=== PATIENT | male | born 1960 | race African-American/Black ===

== ENCOUNTER 2016-06-29 11:56 | Inpatient (IN) | payer OTHER ==
--- NOTE | 2016-06-29 12:25 | PDOC ---
History of Present Illness - General History Source: Patient Exam Limitations: No Limitations - History of Present Illness Initial Comments: 06/29/16 13:26 The patient is a 56 year old male, with significant past medical history HTN, asthma, diabetes, renal disease, kidney stones, aortic aneurism, who presents today via ambulance complaining of chest pain and SOB. The patient was sitting on the couch at the onset of the chest pain, which was accompanied by SOB. The patients family member found the patient kneeled down having difficulty breathing and called an ambulance. He describes the pain as 7 or 8/10 in severity and nonradiating. Denies fever, chills, nausea, vomiting. Allergies: adhesive tape PCP- Dr. Guillen Psychologist Engineering: Dr. Rooney <Marianna Cook - Last Filed: 06/29/16 15:49> - General History Source: Patient Exam Limitations: No Limitations <Devora Parham - Last Filed: 06/30/16 11:53> - General Chief Complaint: Blood Pressure Problem Stated Complaint: CHEST PAIN, SOB,HTN Time Seen by Provider: 06/29/16 12:22 Past History <Marianna Cook - Last Filed: 06/29/16 15:49> - Past Medical History Anemia: No Asthma: No Cancer: No Cardiac Disorders: Yes (CHEST PAIN ANGIOGRAM NEGATIVE) CVA: No COPD: No CHF: No Dementia: No Diabetes: No GI Disorders: No Disorders: Yes (BPH) HTN: Yes Hypercholesterolemia: No Kidney Stones: Yes Liver Disease: No Seizures: No Thyroid Disease: No - Surgical History Abdominal Surgery: No Appendectomy: No Cardiac Surgery: No Cholecystectomy: No GI Surgery: (KIDNEY SX) Lung Surgery: No Neurologic Surgery: No Orthopedic Surgery: No - Psycho/Social/Smoking Cessation Hx Suicidal Ideation: No Smoking Status: Yes Smoking History: Current every day smoker Number of Cigarettes Smoked Daily: 5 Information on smoking cessation initiated: Yes 'Breaking Loose' booklet given: 06/29/16 Hx Alcohol Use: No Drug/Substance Use Hx: No Substance Use Type: None Hx Substance Use Treatment: No <Devora Parham - Last Filed: 06/30/16 11:53> - Past Medical History Allergies/Adverse Reactions: Allergies Allergy/AdvReac Type Severity Reaction Status Date / Time adhesive tape Allergy Verified 06/29/16 12:12 Home Medications: Ambulatory Orders Hydrochlorothiazide [Hctz] 25 mg PO DAILY 11/09/11 Lisinopril [Zestril] 40 mg PO DAILY 11/09/11 Tamsulosin HCl 0.4 mg PO DAILY 11/09/11 Duloxetine HCl [Cymbalta -] 60 mg PO DAILY 06/29/16 Furosemide 20 mg PO DAILY 06/29/16 Labetalol HCl 100 mg PO TID 06/29/16 Nifedipine ER [Procardia Xl -] 90 mg PO DAILY 06/29/16 Zolpidem Tartrate [Ambien] 10 mg PO HS 06/29/16 Review of Systems - Review of Systems Able to Perform ROS?: Yes Comments:: 06/29/16 13:26 GENERAL/CONSTITUTIONAL: No: fever, chills, weakness, loss of appetite. HEAD, EYES, EARS, NOSE AND THROAT: No: change in vision, ear pain, discharge, sore throat, throat swelling. CARDIOVASCULAR: Yes: chest pain No: lightheadedness, palpitations, syncope RESPIRATORY: Yes: shortness of breath. No: wheezing, hemoptysis, stridor. GASTROINTESTINAL: No: nausea, vomiting, abdominal cramping, diarrhea, rectal bleeding, constipation. GENITOURINARY: No: dysuria, hematuria, frequency, urgency, flank pain. MUSCULOSKELETAL: No: back pain, neck pain, joint pain, muscle swelling or pain SKIN: No: lesions, pallor, rash or easy bruising. NEUROLOGIC: No: headache, vertigo, paresthesias, weakness ENDOCRINE: No: unexplained weight gain or loss HEMATOLOGIC/LYMPHATIC: No: anemia, easy bleeding, swelling nodes <Marianna Cook - Last Filed: 06/29/16 15:49> *Physical Exam - Vital Signs Last Vital Signs Temp Pulse Resp BP Pulse Ox 97.3 F L 60 18 164/127 100 06/29/16 12:10 06/29/16 12:52 06/29/16 12:52 06/29/16 12:52 06/29/16 12:52 - Physical Exam Comments: 06/29/16 13:27 GENERAL: The patient is in no acute distress. HEAD: Normal with no signs of trauma. EYES: PERRLA, EOMI, sclera anicteric, conjunctiva clear. ENT: Ears normal, nares patent, oropharynx clear without exudates. Moist mucous membranes. NECK: Normal range of motion, supple without lymphadenopathy, JVD, or masses. LUNGS: Dyspneic. Bipap in place. HEART:Regular rate and rhythm, normal S1 and S2 without murmur, rub or gallop. ABDOMEN: Soft, nontender, normoactive bowel sounds. No guarding, no rebound. EXTREMITIES: Normal range of motion, no edema. No clubbing or cyanosis. No erythema, or tenderness. NEUROLOGICAL: Cranial nerves II through XII grossly intact. Normal speech. No focal neurological deficits. MUSCULOSKELETAL: Back nontender to palpation, no CVA tenderness SKIN: Warm, Dry, normal turgor, no rashes or lesions noted. <Marianna Cook - Last Filed: 06/29/16 15:49> - Vital Signs Last Vital Signs Temp Pulse Resp BP Pulse Ox 97.3 F L 82 20 165/122 98 06/29/16 12:10 06/29/16 12:10 06/29/16 12:10 06/29/16 12:10 06/29/16 12:21 <Devora Parham - Last Filed: 06/30/16 11:53> Heart Score/ECG Review - History History: Moderately suspicious - Electrocardiogram EKG: Non specific repolarization disturbance - Age Age: 45-65 - Risk Factors Risk Factors Heart Score: Yes Hx Hypertension, Yes Hx Diabetes Based on the list above the patient has:: 1-2 risk factors - Troponin Troponin: >/=3x normal limit - Score Heart Score - Total: 6 <Devora Parham - Last Filed: 06/30/16 11:53> ED Treatment Course - LABORATORY CBC & Chemistry Diagram: 06/29/16 12:53 06/29/16 12:53 - ADDITIONAL ORDERS Additional order review: Laboratory Results 06/29/16 12:53 Sodium 140 Potassium 3.9 Chloride 107 Carbon Dioxide 25 Anion Gap 8 BUN 16 Creatinine 1.3 Creat Clearance w eGFR 56.90 Random Glucose 97 Calcium 8.1 L Total Bilirubin 0.4 AST 32 D ALT 28 D Alkaline Phosphatase 83 D Creatine Kinase 149 Troponin I 0.29 H D Total Protein 6.6 Albumin 3.3 L - RADIOLOGY Radiograph Interpretation: 06/29/16 13:57 EXAM#: TYPE/EXAM: RESULT: [id number] RAD/CHEST X-RAY PORTABLE* Chest pain and shortness of breath. Chest semierect portable x-ray. Comparison study April 02, 2016. The costophrenic angles not included on the x-ray. Cardiomegaly. Uncoiled thoracic aorta. Accentuated bronchovascular markings noted in bilateral lower lung zones with right-sided Soren B lines. Clinically correlate for early CHF. No lobar consolidations are seen. No evidence of pneumothorax. Intact visualized osseous structures. Impression. Cardiomegaly. Accentuated bronchovascular markings noted in bilateral lower lung zones with right-sided Soren B lines. Clinically correlate for early CHF. Reported By: Zane Aguilera MD 06/29/16 1302 EXAM#: TYPE/EXAM: RESULT: CT/ABDOMEN CTA W/WO CONTRAST CT/CHEST CTA CTA chest with CTA abdomen Comparison studies: April 02, 2016 and May 28, 2014 CLINICAL HISTORY: Chest pain and abdominal pain-evaluation for aortic dissection 3 mm thin axial sections completed with coronal and sagittal reformations after bolus injection 99 cc Visipaque with a power injector. 3-D postprocessing of the reformatted data was completed and reviewed at the computer work station. Trachea midline with no endobronchial lesion or lobar atelectasis. Small nonloculated bibasilar pleural effusions with no signs of consolidation or pneumonia in the lungs No pneumothorax or pneumomediastinum identified Symmetric normal thyroid lobes with no bulky axillary adenopathy. Mediastinal adenopathy is identified with no thrombus in the cardiac chambers and no evidence of thoracic aortic aneurysm or thoracic aortic dissection with no pericardial effusion identified No evidence of abdominal aortic aneurysm or abdominal aortic dissection No evidence of active contrast extravasation in the abdomen or thorax identified Calcified stones imaged in the region of the left kidney with evidence of prior inflammation and scarring in the left kidney. There is a 2 cm cyst suspected without enhancement and Hounsfield density for in the interpolar region of the left kidney No suspicious lung nodules, mass or cavity with moderate emphysematous changes seen. No large bullae identified No evidence of carotid dissection. Normal visualization of the renal arteries. No PA evidence of saddle embolus in the main pulmonary arteries with no evidence of filling defects in the segmental and subsegmental branches of the pulmonary artery. Pretracheal adenopathy demonstrated measuring 2.0 x 2.0 cm with central low density observed. Left hilar adenopathy identified measuring 2.9 x 2.4 cm. Right hilar adenopathy measuring 2.4 x 2.1 cm and 1.2 x 2.1 cm. Fluid in the bowel is identified with no evidence of bowel obstruction, mild ileus may be present No definite adrenal nodules. No enhancing lesions seen in the liver, spleen or pancreas with normal visualization of the stomach No compression fracture or rib fracture with no bone destruction identified IMPRESSION: CTA chest and abdomen completed with no evidence of thoracic or abdominal aortic aneurysm or thoracic/abdominal aortic dissection. Mediastinal and hilar adenopathy noted incidentally with no evidence of lung mass or pneumonia with small bibasilar pleural effusions. Reported By: Daniel Delcid MD 06/29/16 1509 - Medications Given in the ED: ED Medications Discontinued Medications Generic Name Dose Route Start Last Admin Trade Name Freq PRN Reason Stop Dose Admin Labetalol HCl 10 mg 06/29/16 13:21 06/29/16 13:25 Normodyne Injection - IVPUSH 06/29/16 13:22 10 mg ONCE ONE Administration <Marianna Cook - Last Filed: 06/29/16 15:49> - LABORATORY CBC & Chemistry Diagram: 06/30/16 05:15 06/30/16 05:15 - RADIOLOGY Radiology Studies Ordered: Category Date Time Status ABDOMEN CTA W/WO CONTRAST [CT] Stat CT Scan 06/29/16 12:22 Ordered CHEST CTA [CT] Stat CT Scan 06/29/16 12:22 Ordered CHEST X-RAY PORTABLE* [RAD] Stat Radiology 06/29/16 12:22 Ordered <Devora Parham - Last Filed: 06/30/16 11:53> Medical Decision Making - Critical Care Time Total Critical Care Time (minutes): 60 Critical Care Statement: The care of this patient involved high complexity decision making to prevent further life threatening deterioration of the patient 's condition and/or to evalute & treat vital organ system(s) failure or risk of failure. - Medical Decision Making 06/29/16 12:25 A portion of this note was documented by scribe services under my direction. I have reviewed the details of the note, within reason, and agree with the documentation with the following case summary and management plan written by me. Nursing documentation reviewed and incorporated into medical decision making 06/29/16 13:14 This is a 56 yo M with a history of HTN, known ascending aortic aneurysm Presenting to the ER via EMS s/p episode of chest pain and shortness of breath Pt states, he was in his usual states of health until just prior to arrival when he noted a 7 out of 10 chest pain. His pain escalated and became associated with shortness of breath Patient states his pain radiates into his abdomen. 06/29/16 13:15 06/29/16 15:22 06/29/16 15:22 Laboratory Tests 06/29/16 06/29/16 06/29/16 12:53 12:53 12:53 WBC 5.1 Hgb 10.1 L Hct 32.3 L Plt Count 158 Neutrophils % 69.5 Lymphocytes % 17.9 D INR 1.12 BUN 16 Creatinine 1.3 Creatine Kinase 149 Troponin I 0.29 H D B-Natriuretic Peptide 1794.96 H Case reviewed with Hospitalist will place on tele pending discussion with Dr. Rooney Will admit 06/29/16 15:25 Pt blood pressure steadily increasing despite home medications and Labetolol 10mg IV Will need to place on IV drip 06/29/16 15:45 Initially ordered nitro drip Pt states that he was previously on Nitro (at an outside hospital) and this did not work This did not help Pt got records Labetolol drip worked for him Will order Will admit to the ICU PT seen in the ER by Dr Dillard Clinical Impression: Hypertensive urgency <Devora Parham - Last Filed: 06/30/16 11:53> *DC/Admit/Observation/Transfer - Attestations Scribe Attestion: 06/29/16 13:27 Documentation prepared by IJEOMA Hansen, acting as medical reimbursement manager for Devora Parham MD. <Marianna Cook - Last Filed: 06/29/16 15:49> - Discharge Dispostion Admit: Yes <Devora Parham - Last Filed: 06/30/16 11:53> Diagnosis at time of Disposition: Hypertensive urgency CHF (congestive heart failure) Qualifiers: Congestive heart failure type: unspecified congestive heart failure type Congestive heart failure chronicity: unspecified congestive heart failure chronicity Qualified Code(s): I50.9 - Heart failure, unspecified - Discharge Dispostion Condition at time of disposition: Guarded - Referrals
[2016-06-29 13:16] LABS: ALBUMIN 3.3 g/dl (3.4-5.0); CALCIUM 8.1 mg/dL (8.5-10.1)
[2016-06-29 13:21] LABS: BILIRUBIN,TOTAL 0.4 mg/dL (0.2-1.0); CREATININE 1.3 mg/dL (0.7-1.3); TOT PROT 6.6 g/dl (6.4-8.2); TROPONIN I 0.29 ng/ml (0.00-0.05)
[2016-06-29] MEDS ORDERED: LABETALOL HCL 5 MG/1 ML (100MG/20 ML VIAL) IVPUSH ONE (13:21)
[2016-06-29] MEDS ORDERED: LABETALOL HCL 5 MG/1 ML (100MG/20 ML VIAL) ONE (13:22)
[2016-06-29 13:32] LABS: BASOPHIL 0.5 % (0-2.0); EOSINOPHIL 3.8 % (0-4.5); MCH 26.8 pg (25.7-33.7); MCHC 31.3 g/dl (32.0-35.9); MEAN CELL VOLUME 85.7 fl (80-96); MEAN PLT VOLUME 7.8 fl (7.5-11.1); NEUTROPHILS 69.5 % (42.8-82.8); PLATELET COUNT 158 K/MM3 (134-434); RDW 15.2 % (11.9-15.9); WHITE BLOOD COUNT 5.1 K/mm3 (4.0-10.0)
[2016-06-29 13:43] LABS: INR 1.12 (0.82-1.09); PROTHROMBIN TIME (PATIENT) 12.3 SEC (9.98-11.88)
[2016-06-29] MEDS ORDERED: ASPIRIN 81 MG CHEWABLE TABLETS PO ONE (14:00)
[2016-06-29] MEDS ORDERED: ASPIRIN 81 MG CHEWABLE TABLETS ONE (14:11)
[2016-06-29] MEDS ORDERED: NIFEdipine E.R. 90 MG TABLET (FP) PO ONE (14:42)
[2016-06-29] MEDS ORDERED: HYDROCHLOROTHIAZIDE 25 MG TABLET (FP) PO ONE (14:42)
[2016-06-29] MEDS ORDERED: LISINOPRIL 20 MG TABLET (FP) PO ONE (14:43)
[2016-06-29] MEDS ORDERED: HYDROCHLOROTHIAZIDE 25 MG TABLET (FP) ONE (14:46)
[2016-06-29] MEDS ORDERED: LISINOPRIL 20 MG TABLET (FP) ONE (15:23)
[2016-06-29] MEDS ORDERED: NITROGLYCERIN SUBLINGUAL 1/150 0.4 MG TAB SL ONE (15:30)
[2016-06-29] MEDS ORDERED: FUROSEMIDE 40 MG/4 ML INJECTABLE VIAL IVPB ONE (15:32)
[2016-06-29] MEDS ORDERED: morphine CARPU-JECT 4 MG/1 ML DISP.SYRIN IVPUSH ONE (15:32)
[2016-06-29] MEDS ORDERED: morphine CARPU-JECT 4 MG/1 ML DISP.SYRIN ONE (15:35)
[2016-06-29] MEDS ORDERED: FUROSEMIDE 40 MG/4 ML INJECTABLE VIAL ONE (15:35)
[2016-06-29] MEDS ORDERED: LABETALOL HCL INJECTION 1,000 MG in SODIUM CHLORIDE 800 ML IV SCH ×2 (15:45→17:51)
[2016-06-29] MEDS ORDERED: NITROGLYCERIN 25MG/D5W 250ML 250 ML IVPB SCH (15:45)
[2016-06-29] MEDS ORDERED: ACETAMINOPHEN 325 MG TABLET (FP) PO PRN (15:45)
[2016-06-29] MEDS ORDERED: NITROGLYCERIN SUBLINGUAL 1/150 0.4 MG TAB SL PRN (15:45)
[2016-06-29] MEDS ORDERED: ONDANSETRON 4 MG/2 ML VIAL IVPB PRN (15:45)
--- NOTE | 2016-06-29 15:53 | HP ---
CHIEF COMPLAINT: Chest pain PCP: Dr. Guillen Feed Research Technician: Dr. Rooney HISTORY OF PRESENT ILLNESS: This is a 56 year old male with a history of [id number] HTN, asthma, NIDDM, kidney stones, and aortic aneurysm ( documented 11/2013 as "mild dilatation/upper limit normal aortic size [ascending aorta]") who presented to the ED today complaining of chest pain. The pain began at rest and was initially mid-sternal, but now radiates to the left lower abdomen. The chest pain was relieved by SL ntg, but the abdominal pain persists. While in the ED, he developed progressive dyspnea and HTN (max 196/155) and was placed on NIPPV and Labetolol drip ( at bedside reports that he had a similar presentation in the past, and that ntg gtt "didn't work"). He reports a 1 block ET; this has been unchanged for several years. His last cath was about 1.5 yrs ago at [facility]. ER course was notable for: (1) EKG: Sinus rhythm at 77bpm, LVH, lateral TWI seen on prior EKG of 10/2011 (2) Troponin intermediate at 0.29 (3) BNP 1795 (4) CTA chest/abdomen: No evidence of thoracic or abdominal aneurysm or dissection. Small bibasilar pleural effusions. Mediastinal and hilar adenopathy. 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 Smokin cigarettes/daily Alcohol: Occasional Drugs: None Family History: Allergies adhesive tape Allergy (Verified 06/29/16 12:12) HOME MEDICATIONS: Medication Instructions Recorded Hydrochlorothiazide [Hctz] 25 mg PO DAILY 11/09/11 Lisinopril [Zestril] 40 mg PO DAILY 11/09/11 Tamsulosin HCl 0.4 mg PO DAILY 11/09/11 Duloxetine HCl [Cymbalta -] 60 mg PO DAILY 06/29/16 Furosemide 20 mg PO DAILY 06/29/16 Labetalol HCl 100 mg PO TID 06/29/16 Nifedipine ER [Procardia Xl -] 90 mg PO DAILY 06/29/16 Zolpidem Tartrate [Ambien] 10 mg PO HS 06/29/16 REVIEW OF SYSTEMS CONSTITUTIONAL: Absent: Subjective fever/chills, loss of appetite, unintentional 35 lb weight loss over 2 months. HEENT: Absent: rhinorrhea, nasal congestion, throat pain, throat swelling, difficulty swallowing, mouth swelling, ear pain, eye pain, visual changes CARDIOVASCULAR: See HPI RESPIRATORY: Dyspnea, dry cough Absent: corthopnea, wheezing, stridor, hemoptysis GASTROINTESTINAL: Abdominal pain Absent: abdominal distension, nausea, vomiting, diarrhea, constipation, melena, hematochezia GENITOURINARY: Absent: dysuria, frequency, urgency, hesitancy, hematuria, flank pain, genital pain MUSCULOSKELETAL: Absent: myalgia, arthralgia, joint swelling, back pain, neck pain SKIN: Absent: rash, itching, pallor HEMATOLOGIC/IMMUNOLOGIC: Absent: easy bleeding, easy bruising, lymphadenopathy, frequent infections ENDOCRINE: Absent: unexplained weight gain, heat intolerance, cold intolerance NEUROLOGIC: Absent: headache, focal weakness or paresthesias, dizziness, unsteady gait, seizure, mental status changes, bladder or bowel incontinence PSYCHIATRIC: Absent: anxiety, depression, suicidal or homicidal ideation, hallucinations. PHYSICAL EXAMINATION Vital Signs - 24 hr 06/29/16 06/29/16 06/29/16 12:00 12:10 12:21 Temperature 97.3 F L Pulse Rate 82 Pulse Rate [ Apical] Respiratory 20 Rate Blood Pressure 165/122 Blood Pressure [Right Arm] O2 Sat by Pulse 100 99 98 Oximetry (%) 06/29/16 06/29/16 06/29/16 12:52 14:39 15:30 Temperature Pulse Rate Pulse Rate [ 60 70 78 Apical] Respiratory 18 17 26 H Rate Blood Pressure Blood Pressure 164/127 176/136 185/145 [Right Arm] O2 Sat by Pulse 100 99 100 Oximetry (%) 06/29/16 15:45 Temperature Pulse Rate Pulse Rate [ 90 Apical] Respiratory 30 H Rate Blood Pressure Blood Pressure 196/155 [Right Arm] O2 Sat by Pulse 100 Oximetry (%) GENERAL: Awake, alert, and fully oriented, in no acute distress. HEAD: Normal with no signs of trauma. EYES: Pupils equal, round and reactive to light, extraocular movements intact, sclera anicteric, conjunctiva clear. No lid lag. EARS, NOSE, THROAT: Ears normal, nares patent, oropharynx clear without exudates. Moist mucous membranes. NECK: Normal range of motion, supple without lymphadenopathy, JVD, or masses. LUNGS: Mild tachypnea. Rales at bases. Speaking half sentences. HEART: Regular rate and rhythm, normal S1 and S2 without murmur, rub or gallop. ABDOMEN: Soft, no focal tenderness, not distended, normoactive bowel sounds, no guarding, no rebound, no masses. No hepatomegaly or splenomegaly. MUSCULOSKELETAL: Normal range of motion at all joints. No bony deformities or tenderness. No CVA tenderness. UPPER EXTREMITIES: 2+ pulses, warm, well-perfused. No cyanosis. No clubbing. Cap refill <2 seconds. No peripheral edema. LOWER EXTREMITIES: 2+ pulses, warm, well-perfused. No calf tenderness. No peripheral edema. NEUROLOGICAL: Cranial nerves II-XII intact. Normal speech. Normal gait. PSYCHIATRIC: Cooperative. Good eye contact. Appropriate mood and affect. SKIN: Warm, dry, normal turgor, no rashes or lesions noted. Laboratory Results - last 24 hr 06/29/16 06/29/16 06/29/16 12:53 12:53 12:53 WBC 5.1 RBC 3.77 L Hgb 10.1 L Hct 32.3 L MCV 85.7 MCHC 31.3 L RDW 15.2 Plt Count 158 MPV 7.8 Neutrophils % 69.5 Lymphocytes % 17.9 D Monocytes % 8.3 Eosinophils % 3.8 D Basophils % 0.5 INR 1.12 Sodium 140 Potassium 3.9 Chloride 107 Carbon Dioxide 25 Anion Gap 8 BUN 16 Creatinine 1.3 Creat Clearance w eGFR 56.90 Random Glucose 97 Calcium 8.1 L Total Bilirubin 0.4 AST 32 D ALT 28 D Alkaline Phosphatase 83 D Creatine Kinase 149 Troponin I 0.29 H D B-Natriuretic Peptide 1794.96 H Total Protein 6.6 Albumin 3.3 L Blood Type Antibody Screen 06/29/16 06/29/16 12:53 13:17 WBC RBC Hgb Hct MCV MCHC RDW Plt Count MPV Neutrophils % Lymphocytes % Monocytes % Eosinophils % Basophils % INR Sodium Potassium Chloride Carbon Dioxide Anion Gap BUN Creatinine Creat Clearance w eGFR Random Glucose Calcium Total Bilirubin AST ALT Alkaline Phosphatase Creatine Kinase Troponin I B-Natriuretic Peptide Cancelled Total Protein Albumin Blood Type A POSITIVE Antibody Screen Negative ASSESSMENT/PLAN: 56 year old male with hypertensive emergency, chest pain, and respiratory failure. Problem List - Problem (1) Hypertensive emergency Assessment/Plan: -Given home meds (HCTZ, Procardia, Labetolol, and Lisinopril in ED), also given Labetolol 10mg IVP and Lasix 40mg IVP with uptrending BP and worsening dyspnea -Placed on Labetolol gtt; continue home meds and wean as able -Monitor in ICU -Patient's private comprehensive ophthalmologist consulted Code(s): I10 - ESSENTIAL (PRIMARY) HYPERTENSION (2) CHF (congestive heart failure) Assessment/Plan: -Erinn-B lines seen on CXR, rales heard on exam -Obtain echocardiogram -NIPPV for respiratory support -Lasix 40mg IVP daily -Strict I/O -Daily weights -Sodium restriction Code(s): I50.9 - HEART FAILURE, UNSPECIFIED Qualifiers: Qualified Code(s): I50.9 - Heart failure, unspecified (3) Abdominal pain Assessment/Plan: -No adominal aortic aneurysm identified on CT -No focal tenderness on exam -CTA notes calcified stones in the left kidney -UA with 19 WBCs, possibly suggestive of UTI -Treating with Ceftriaxone 1g daily for now, follow up urine culture Code(s): R10.9 - UNSPECIFIED ABDOMINAL PAIN (4) DVT prophylaxis Assessment/Plan: -Lovenox 40mg sq daily -Early ambulation Code(s): [id number] - Visit type - Emergency Visit Emergency Visit: Yes ED Registration Date: 06/29/16 Care time: The patient presented to the Emergency Department on the above date and was hospitalized for further evaluation of their emergent condition. - New Patient This patient is new to me today: Yes Date on this admission: 06/29/16 - Critical Care Critical Care patient: Yes Total Critical Care Time (in minutes): 35 Critical Care Statement: The care of this patient involved high complexity decision making to prevent further life threatening deterioration of the patient 's condition and/or to evalute & treat vital organ system(s) failure or risk of failure.
--- NOTE | 2016-06-29 16:50 | PN ---
Teaching Attending Note Name of Resident: Davian Glover ATTENDING PHYSICIAN STATEMENT I saw and evaluated the patient. I reviewed the resident's note and discussed the case with the resident. I agree with the resident's findings and plan as documented. SUBJECTIVE: 56 M, labile HTN, with previous admissions here and [facility] for uncontrolled HTN ( according to the needed Labetalol drip previously at [facility]), asthma, NIDDM, kidney stones, and questionable aortic aneurysm (records from 11/2013 as " minimal to mild fusiform aneurysmal dilatation descending aorta"). Reports CP that radiates into his mid-abdomen and his left groin. No fever or chills. No travel history or sick contacts. Currently on NIPPV and labetalol drip. CT imaging: No aneurysm noted / "Pretracheal adenopathy demonstrated measuring 2.0 x 2.0 cm with central low density observed. Left hilar adenopathy identified measuring 2.9 x 2.4 cm. Right hilar adenopathy measuring 2.4 x 2.1 cm and 1.2 x 2.1 cm." Intake & Output 06/26/16 06/27/16 06/28/16 06/29/16 23:59 23:59 23:59 23:59 Weight 223 lb Last Vital Signs Temp Pulse Resp BP Pulse Ox 97.3 F L 57 L 17 162/126 100 06/29/16 12:10 06/29/16 16:53 06/29/16 16:53 06/29/16 16:53 06/29/16 16:53 Active Medications Acetaminophen (Tylenol -) 650 mg PO Q6H PRN PRN Reason: FEVER OR PAIN Chlorhexidine Gluconate (Hibiclens For Decolonization -) 1 applic TP HS [facility] Duloxetine HCl (Cymbalta -) 60 mg PO DAILY [facility] Enoxaparin Sodium (Lovenox -) 40 mg SQ DAILY [facility] Furosemide (Lasix Injection -) 40 mg IVPUSH DAILY [facility] Hydrochlorothiazide (Hctz -) 25 mg PO DAILY [facility] Labetalol HCl 1,000 mg/ Sodium (Chloride) 1,000 mls @ 120 mls/hr IV TITR [facility] PRN Reason: 2 MG/MIN Last Admin: 06/29/16 16:28 Dose: 120 mls/hr Labetalol HCl (Normodyne -) 100 mg PO TID [facility] Lisinopril (Prinivil) 40 mg PO DAILY [facility] Mupirocin (Bactroban Ointment (For Decolonization) -) 1 applic NS BID [facility] Stop: 07/04/16 21:59 Nicotine (Nicoderm Patch -) 7 mg TD DAILY [facility] Nifedipine (Procardia Xl -) 90 mg PO DAILY [facility] Nitroglycerin (Nitrostat -) 0.4 mg SL Q5M PRN PRN Reason: FOR CHEST PAIN Ondansetron HCl (Zofran Injection) 4 mg IVPB Q6H PRN PRN Reason: NAUSEA Tamsulosin HCl (Flomax -) 0.4 mg PO DAILY [facility] Zolpidem Tartrate (Ambien -) 10 mg PO HS PRN PRN Reason: INSOMNIA OBJECTIVE: GENERAL: Awake and alert on NIPPV HEAD: Normal with no signs of trauma. EYES: No papilledema, EOMI, sclera anicteric, conjunctiva clear. ENT: Ears normal, nares patent, oropharynx clear without exudates. Moist mucous membranes. NECK: Normal range of motion, supple without lymphadenopathy, JVD, or masses. LUNGS: Few basilar rhonchi, no wheezing, on NIPPV HEART:Regular rate and rhythm, normal S1 and S2 without murmur, rub or gallop. ABDOMEN: Soft, nontender, normoactive bowel sounds. No guarding, no rebound. EXTREMITIES: Normal range of motion, no edema. No clubbing or cyanosis. No erythema, or tenderness. NEUROLOGICAL: Non-focal, Normal speech. No focal neurological deficits. MUSCULOSKELETAL: Back nontender to palpation, no CVA tenderness SKIN: Warm, Dry, normal turgor, no rashes or lesions noted. Laboratory Results - last 24 hr 06/29/16 06/29/16 06/29/16 12:53 12:53 12:53 WBC 5.1 RBC 3.77 L Hgb 10.1 L Hct 32.3 L MCV 85.7 MCHC 31.3 L RDW 15.2 Plt Count 158 MPV 7.8 Neutrophils % 69.5 Lymphocytes % 17.9 D Monocytes % 8.3 Eosinophils % 3.8 D Basophils % 0.5 INR 1.12 Sodium 140 Potassium 3.9 Chloride 107 Carbon Dioxide 25 Anion Gap 8 BUN 16 Creatinine 1.3 Creat Clearance w eGFR 56.90 Random Glucose 97 Calcium 8.1 L Total Bilirubin 0.4 AST 32 D ALT 28 D Alkaline Phosphatase 83 D Creatine Kinase 149 Troponin I 0.29 H D B-Natriuretic Peptide 1794.96 H Total Protein 6.6 Albumin 3.3 L Blood Type Antibody Screen 06/29/16 06/29/16 12:53 13:17 WBC RBC Hgb Hct MCV MCHC RDW Plt Count MPV Neutrophils % Lymphocytes % Monocytes % Eosinophils % Basophils % INR Sodium Potassium Chloride Carbon Dioxide Anion Gap BUN Creatinine Creat Clearance w eGFR Random Glucose Calcium Total Bilirubin AST ALT Alkaline Phosphatase Creatine Kinase Troponin I B-Natriuretic Peptide Cancelled Total Protein Albumin Blood Type A POSITIVE Antibody Screen Negative IMP: Hypertensive Urgency Labile HTN 11/2013: "minimal to mild fusiform aneurysmal dilatation descending aorta"). CHF Asthma NIDDM Kidney stones (+) Troponin Above history PLAN: Patient being started on Labetalol drip Strict I&O Diuretics as needed NIPPV support for now Cardiology consult Lasix IV ECHO Cardiology evaluation No smoking Will need outpatient PFTs once stable ICU monitoring Thank you. Dr Dillard CCTime 35"
--- NOTE | 2016-06-29 16:51 | CONSULT ---
Consult Consult Specialty:: Pulm/CCM Referred by:: Candi Shanks NP Reason for Consultation:: hypertensive urgency - History of Present Illness Chief Complaint: Chest pain/shortness of breath History of Present Illness: 56M PMHx of HTN (difficulty controlling in the past per chart and patient), asthma, NIDDM, kidney stones, and alleged aortic aneurysm but with no CT findings done today, who presented to the ED today complaining of chest pain. pain started as mid sternal chest and the patient now complains of it radiating to the left lower abdomen.pain was relieved by sublingual nitroglycerin. He still complains of ABD pain. He denies nausea vomting. Denies fevers. States he felt hot and cold. in ED he was found to have hypertensive urgency and started on labetelol gtt with control of BP. Found to have elevated troponin to 0.29 and Elevated BMP. Denies hematuria or dysuria PMH: Asthma NIDDM Kidney stones HTN - History Source History Provided By: Patient, Medical Record Limitations to Obtaining History: No Limitations - Past Surgical History Additional Surgical History: kidney surgery - Alcohol/Substance Use Hx Alcohol Use: No - Smoking History Smoking history: Current every day smoker Aproximately how many cigarettes per day: 6 Home Medications - Allergies Allergies/Adverse Reactions: Allergies Allergy/AdvReac Type Severity Reaction Status Date / Time adhesive tape Allergy Verified 06/29/16 12:12 - Home Medications Home Medications: Ambulatory Orders Hydrochlorothiazide [Hctz] 25 mg PO DAILY 11/09/11 Lisinopril [Zestril] 40 mg PO DAILY 11/09/11 Tamsulosin HCl 0.4 mg PO DAILY 11/09/11 Duloxetine HCl [Cymbalta -] 60 mg PO DAILY 06/29/16 Furosemide 20 mg PO DAILY 06/29/16 Labetalol HCl 100 mg PO TID 06/29/16 Nifedipine ER [Procardia Xl -] 90 mg PO DAILY 06/29/16 Zolpidem Tartrate [Ambien] 10 mg PO HS 06/29/16 Review of Systems - Review of Systems Constitutional: reports: Chills, Unintentional Wgt. Loss Eyes: denies: No Symptoms, Blind Spots, Blurred Vision, Double Vision, Eye Pain , Floaters, Photophobia, Recent Change in Vision, Other HENT: denies: No Symptoms, Difficult Swallowing, Ear Discharge, Ear Pain, Epistaxis, Gingival Bleeding, Hearing Loss, Mouth Swelling, Nasal Congestion, Ocular Prosthesis, Throat Pain, Toothache, Ringing in Ears, Other Neck: denies: No Symptoms, Decreased ROM, Lumps, Pain on Movement, Stiffness, Swollen Glands, Tenderness, Other Cardiovascular: reports: Chest Pain, Shortness of Breath Respiratory: reports: SOB, Other (poor exercise tolerance) Gastrointestinal: reports: Abdominal Pain Genitourinary: reports: No Symptoms Musculoskeletal: reports: No Symptoms Integumentary: reports: No Symptoms Neurological: reports: No Symptoms Physical Exam Vital Signs: Vital Signs Temperature 97.3 F L 06/29/16 12:10 Pulse Rate 90 06/29/16 15:45 Respiratory Rate 30 H 06/29/16 15:45 Blood Pressure 196/155 06/29/16 15:45 O2 Sat by Pulse Oximetry (%) 100 06/29/16 15:45 Constitutional: Yes: Well Nourished, No Distress, Calm Eyes: Yes: Conjunctiva Clear, EOM Intact HENT: Yes: WNL, Atraumatic, Normocephalic Neck: Yes: Supple, Trachea Midline Cardiovascular: Yes: WNL, Regular Rate and Rhythm Respiratory: Yes: Other (fine crackles at bases bilaterally) Gastrointestinal: Yes: Soft, Tenderness (LUQ) Edema: No ...Motor Strength: WNL Imaging - Results Chest X-ray: Report Reviewed, Image Reviewed X-ray: Report Reviewed, Image Reviewed Cat Scan: Report Reviewed, Image Reviewed Assessment/Plan 56M with chest pain SOB and ABD pain with elevated troponins and hypertensive urgency requring labetelol gtt. Hypertension/hypertensive urgency: Admit to ICU control BP on Labetelol gtt restart home meds nifedepine labetelol HCTZ and lisinopril PO Lasix 40mg IV Chest pain/troponinemia:could be from demand ischemia/NSTEMI/ cardiology consult trend troponins with EKGs improved now has ABD pain Possible CHF shortness of breath could be due to new onset CHF: Echo Repeat CXR in AM CXR concern for CHF with naomi B lines and crackles on exam on BiPAP in ED while in ICU not on bipap so far feels much better Cardiology consult lasix strict I/O daily weights Abdominal pain/Possible UTI Calcified stones seen on CT Possible UTI will start ceftriaxone until UA UCx resulted BPH no issues at this time outpt follow up continue flomax PPx: Lovenox No GI PPx needed at this time No PT consult needed at this time FEN: no fluids no electrolyte issues sodium controlled diet CCT 60min
[2016-06-29] MEDS ORDERED: CEFTRIAXONE 1 GM in DEXTROSE 5%-WATER - 50 ML IVPB SCH (17:00)
[2016-06-29] MEDS ORDERED: METOCLOPRAMIDE HCL INJECTION 10 MG/2 ML VIAL IVPB ONE (17:57)
[2016-06-29] MEDS: cefTRIAXone 1 GM/50 ML BAG (PRE-DOCKED) IVPB SCH (18:15)
--- NOTE | 2016-06-29 18:20 | EKG ---
Test Reason : Blood Pressure : / mmHG Vent. Rate : 077 BPM Atrial Rate : 077 BPM P-R Int : 176 ms QRS Dur : 094 ms QT Int : 432 ms P-R-T Axes : 022 025 106 degrees QTc Int : 488 ms SINUS RHYTHM WITH PREMATURE ATRIAL COMPLEXES IN A PATTERN OF BIGEMINY POSSIBLE LEFT ATRIAL ENLARGEMENT LEFT VENTRICULAR HYPERTROPHY T WAVE ABNORMALITY, CONSIDER LATERAL ISCHEMIA PROLONGED QT ABNORMAL ECG WHEN COMPARED WITH ECG OF 09-NOV-2011 13:52, PREMATURE ATRIAL COMPLEXES ARE NOW PRESENT T WAVE VARIATION Confirmed by GEORGE LOMBARDO MD ([id number]) on 06/29/2016 6:19:52 PM Referred By: Confirmed By:GEORGE LOMBARDO MD
[2016-06-29 18:38] VITALS: BMI 26.7
[2016-06-29 19:28] LABS: TROPONIN I 0.24 ng/ml (0.00-0.05)
[2016-06-29] MEDS ORDERED: LABETALOL HCL 100 MG TABLET (FP) ONE (21:01)
[2016-06-29] MEDS: MUPIROCIN 2% TOPICAL OINTMENT FOR DECOLONIZATION NS SCH (21:06)
[2016-06-29] MEDS: LABETALOL HCL 100 MG TABLET (FP) PO SCH (21:06)
[2016-06-29] MEDS: NICOTINE 7 MG/24 HOURS TOPICAL PATCH TD SCH (21:07)
[2016-06-29] MEDS ORDERED: ZOLPIDEM TARTRATE 5 MG TABLET PO PRN (22:00)
[2016-06-29] MEDS ORDERED: CHLORHEXIDINE GLUCONATE 4% CLEANSER FOR DECOLONIZATION TP SCH (22:00)
[2016-06-30] MEDS: LABETALOL HCL 100 MG TABLET (FP) PO SCH ×3 (05:35→22:36)
[2016-06-30 06:18] LABS: BASOPHIL 0.7 % (0-2.0); EOSINOPHIL 2.1 % (0-4.5); MCH 25.7 pg (25.7-33.7); MCHC 30.5 g/dl (32.0-35.9); MEAN CELL VOLUME 84.2 fl (80-96); NEUTROPHILS 60.6 % (42.8-82.8); PLATELET COUNT 180 K/MM3 (134-434); RDW 14.8 % (11.9-15.9); WHITE BLOOD COUNT 6.2 K/mm3 (4.0-10.0)
[2016-06-30 07:13] LABS: ALBUMIN 3.2 g/dl (3.4-5.0); CALCIUM 8.4 mg/dL (8.5-10.1); MAGNESIUM 1.8 mg/dL (1.8-2.4)
[2016-06-30 07:17] LABS: BILIRUBIN,TOTAL 0.7 mg/dL (0.2-1.0); CREATININE 1.3 mg/dL (0.7-1.3); TOT PROT 6.4 g/dl (6.4-8.2)
[2016-06-30 08:48] LABS: TROPONIN I 0.24 ng/ml (0.00-0.05)
--- NOTE | 2016-06-30 09:02 | PN ---
Progress Note (short form) - Note Progress Note: Cardiology Consult Dictated 56 M well known to me from office with chronic HTN, non-adherent w/ medical therapy, mildly dilated aorta on echo (3.9cm) presents to ER with SOB, uncontrolled HTN and chest tightness found to be in CHF, likely acute on chronic diastolic CHF triggered by uncontrolled HTN, CTA negative for dissection. REC: 1. Resume home BP meds, BP control 2. IV Lasix 3. Echo to re-assess LV function and valvular fxn 4. Suspect low level + TnI is due to CHF. Previous cath x 2 non-obstructive. Would give ASA and plan for repeat ischemic work up when euvolemic.
[2016-06-30] MEDS ORDERED: DULoxetine HCL 30 MG CAPSULE.DR (FP) PO ONE (09:15)
[2016-06-30] MEDS: cefTRIAXone 1 GM/50 ML BAG (PRE-DOCKED) IVPB SCH (09:23)
[2016-06-30] MEDS: MUPIROCIN 2% TOPICAL OINTMENT FOR DECOLONIZATION NS SCH ×2 (09:32→22:35)
--- NOTE | 2016-06-30 09:45 | CONS ---
DATE OF CONSULTATION: 06/30/2016 The consultation is requested by Ashley Alba for uncontrolled hypertension, CHF and positive cardiac troponin I. CHIEF COMPLAINT: Chest pain and shortness of breath. HISTORY OF PRESENT ILLNESS: The patient is a 56-year-old male well known to me from office practice and previous hospitalizations. He has a history of chronic hypertension, medical nonadherence with antihypertensive therapy, hypertensive heart disease, LVH, chronic diastolic CHF, mildly dilated ascending aorta on echo ( 3.9 cm, stable), and nonobstructive coronary disease on 2 previous cardiac catheterizations. He presented to the emergency room yesterday with rather acute onset of shortness of breath and chest tightness at home. Patient began developing shortness of breath 1 day prior to admission, but on the day of admission developed worsening dyspnea with minimal exertion and central chest tightness. In the emergency room, he was found to be markedly hypertensive, his chest x-ray indicated CHF. He was diuresed with Lasix and is feeling better this morning. Of note, he has cardiac troponin I of 0.24 and 0.24 with negative CK. He denies palpitations, fevers, chills. The remainder of the review of systems is otherwise comprehensively normal. PAST MEDICAL HISTORY: Is as above. ALLERGIES: He has allergies to ADHESIVE TAPE. HOME MEDICATIONS: Include Flomax 0.4 mg daily for BPH; lisinopril of 40 daily; hydrochlorothiazide 25 daily; Ambien 10 nightly p.r.n.; Cymbalta 60 daily for depression; labetalol of 100 t.i.d.; Procardia XL 90 daily; Lasix 20 daily. FAMILY HISTORY: Noncontributory. SOCIAL HISTORY: He is a current daily smoker and has mild COPD. PHYSICAL EXAMINATION: General: He is in no distress, alert, conversive. Vital signs: Afebrile, temperature 98.4. Telemetry has shown sinus rhythm with a few short episodes of nonsustained ventricular tachycardia, 3 to 4 beats each. Pulse is 80 and regular. Blood pressure is now 135/93, initially 165/122 on presentation. Oxygen saturation is 100% on 2 L nasal cannula. Neck: He has no carotid bruits. Carotid pulses 2+. Heart: S1, S2 regular. There is an S4 gallop. Chest: Clear. Abdomen: Soft, nontender. No aortic enlargement. Extremities: Warm with no pitting edema. All pulses were 2+ and symmetric bilaterally. LABS: were reviewed in EMR. Chest CTA and abdomen CTA showed COPD changes with no aneurysm and no dissection. His chest x-ray this morning still shows some residual congestion, but is improved from admission. Echo is pending. His EKG showed normal sinus rhythm with APCs, LVH, left atrial enlargement, prolonged QT and nonspecific ST changes. IMPRESSION: Hoehg[age]bcykg-dhuy-old male with chronic hypertension, history of medical nonadherence, mildly dilated aorta on echocardiogram, presented to the emergency room with shortness of breath and uncontrolled hypertension and chest tightness - found to be in congestive heart failure: Likely representing acute on chronic diastolic congestive heart failure secondary to hypertensive heart disease triggered by uncontrolled hypertension. CTA of the chest was negative for dissection. He is also found to have a low level mildly elevated troponin with negative CPKs. RECOMMENDATIONS: 1. Resume home blood pressure medications, blood pressure control throughout today. Titrate medications as needed. 2. IV Lasix. Keep potassium and magnesium normalized as there has been some non-sustained V-ectopy noted on tele. 3. Echo to reassess LV function and to assess for valvular heart disease. 4. I suspect that the low level elevated TNI (troponin I) is due to CHF. He has had previous cardiac catheterizations, 2 of them, which have been nonobstructive, both at [facility]. Would give aspirin for now, cycle cardiac enzymes, obtain echo and plan for a repeat ischemic evaluation when the patient is euvolemic with normalized blood pressure. Thank you for the consultation. PENNY DICKSON M.D. [id number] [facility]
[2016-06-30] MEDS ORDERED: HYDROCHLOROTHIAZIDE 25 MG TABLET (FP) PO SCH (10:00)
[2016-06-30] MEDS ORDERED: FUROSEMIDE 40 MG/4 ML INJECTABLE VIAL IVPUSH SCH (10:00)
[2016-06-30] MEDS ORDERED: ENOXAPARIN NA (PORCINE) 40 MG/0.4 ML DISP.SYRIN SQ SCH (10:00)
[2016-06-30] MEDS ORDERED: DULoxetine HCL 60 MG CAPSULE.DR PO SCH (10:00)
[2016-06-30] MEDS ORDERED: FUROSEMIDE 20 MG TABLET (FP) PO SCH (10:00)
[2016-06-30] MEDS ORDERED: LISINOPRIL 20 MG TABLET (FP) PO SCH (10:00)
[2016-06-30] MEDS ORDERED: NIFEdipine E.R. 90 MG TABLET (FP) PO SCH (10:00)
[2016-06-30] MEDS ORDERED: TAMSULOSIN HCL 0.4 MG CAP.ER.24H (FP) PO SCH (10:00)
[2016-06-30] MEDS ORDERED: PT OWN MED DRAWER 7, Y5N ONE (10:01)
--- NOTE | 2016-06-30 10:28 | EKG ---
Test Reason : Blood Pressure : / mmHG Vent. Rate : 069 BPM Atrial Rate : 069 BPM P-R Int : 174 ms QRS Dur : 098 ms QT Int : 448 ms P-R-T Axes : 050 040 144 degrees QTc Int : 480 ms NORMAL SINUS RHYTHM WITH SINUS ARRHYTHMIA POSSIBLE LEFT ATRIAL ENLARGEMENT LEFT VENTRICULAR HYPERTROPHY T WAVE ABNORMALITY, CONSIDER INFEROLATERAL ISCHEMIA PROLONGED QT ABNORMAL ECG WHEN COMPARED WITH ECG OF 29-JUN-2016 12:06, PREMATURE ATRIAL COMPLEXES ARE NO LONGER PRESENT Confirmed by JAIME CORDOBA MD ([id number]) on 06/30/2016 10:27:46 AM Referred By: Mayela GUTIERRES Confirmed By:JAIME CORDOBA MD
--- NOTE | 2016-06-30 12:24 | PN ---
Teaching Attending Note Name of Resident: Davian Glover ATTENDING PHYSICIAN STATEMENT I saw and evaluated the patient. I reviewed the resident's note and discussed the case with the resident. I agree with the resident's findings and plan as documented. SUBJECTIVE: Pt seen and examined in the ICU. Off labetalol gtt. No further shortness of breath or chest pain. OBJECTIVE: Last Vital Signs Temp Pulse Resp BP Pulse Ox 97.8 F 89 18 131/97 99 06/30/16 10:00 06/30/16 10:05 06/30/16 10:00 06/30/16 10:00 06/30/16 11:55 Intake & Output 06/27/16 06/28/16 06/29/16 06/30/16 23:59 23:59 23:59 23:59 Intake Total 650 550 Output Total 1999 1900 Balance -1350 -1350 Weight 220 lb 229 lb 9 oz Gen: NAD at rest Heart: RRR Lung: decreased breath sounds at the bases Abd: soft, nontender Ext: no edema CBC, BMP 06/30/16 05:15 06/30/16 05:15 Active Medications Acetaminophen (Tylenol -) 650 mg PO Q6H PRN PRN Reason: FEVER OR PAIN Ceftriaxone Sodium (Rocephin 1gm Ivpb (Pre-Docked)) 1 gm IVPB DAILY [facility] Last Admin: 06/30/16 09:23 Dose: 1 gm Chlorhexidine Gluconate (Hibiclens For Decolonization -) 1 applic TP HS [facility] Last Admin: 06/29/16 21:07 Dose: 1 applic Duloxetine HCl (Cymbalta -) 60 mg PO DAILY [facility] Last Admin: 06/30/16 09:20 Dose: 60 mg Enoxaparin Sodium (Lovenox -) 40 mg SQ DAILY [facility] Last Admin: 06/30/16 09:24 Dose: 40 mg Furosemide (Lasix Injection -) 40 mg IVPUSH DAILY [facility] Last Admin: 06/30/16 09:23 Dose: 40 mg Hydrochlorothiazide (Hctz -) 25 mg PO DAILY [facility] Last Admin: 06/30/16 09:22 Dose: 25 mg Labetalol HCl (Normodyne -) 100 mg PO TID [facility] Last Admin: 06/30/16 05:35 Dose: 100 mg Lisinopril (Prinivil) 40 mg PO DAILY [facility] Last Admin: 06/30/16 09:22 Dose: 40 mg Mupirocin (Bactroban Ointment (For Decolonization) -) 1 applic NS BID [facility] Stop: 07/04/16 21:59 Last Admin: 06/30/16 09:32 Dose: 1 applic Nicotine (Nicoderm Patch -) 7 mg TD DAILY [facility] Last Admin: 06/29/16 21:07 Dose: 7 mg Nifedipine (Procardia Xl -) 90 mg PO DAILY [facility] Last Admin: 06/30/16 09:23 Dose: 90 mg Nitroglycerin (Nitrostat -) 0.4 mg SL Q5M PRN PRN Reason: FOR CHEST PAIN Ondansetron HCl (Zofran Injection) 4 mg IVPB Q6H PRN PRN Reason: NAUSEA Last Admin: 06/29/16 18:15 Dose: 4 mg Tamsulosin HCl (Flomax -) 0.4 mg PO DAILY [facility] Last Admin: 06/30/16 09:22 Dose: 0.4 mg Zolpidem Tartrate (Ambien -) 10 mg PO HS PRN PRN Reason: INSOMNIA Last Admin: 06/29/16 21:10 Dose: 10 mg ASSESSMENT AND PLAN: Hypertensive Urgency Likely Acute on Chronic LV Diastolic Heart Failure Nephrolithiasis r/o UTI Smoker - BP control with oral meds - echocardiogram - on empiric antibiotics - send UA - f/u cultures - counseled on smoking cessation and medication compliance - DVT prophylaxis - can monitor on floor
--- NOTE | 2016-06-30 13:58 | PN ---
Progress Note, Physician History of Present Illness: feels much better off labetelol gtt - Current Medication List Current Medications: Active Medications Acetaminophen (Tylenol -) 650 mg PO Q6H PRN PRN Reason: FEVER OR PAIN Ceftriaxone Sodium (Rocephin 1gm Ivpb (Pre-Docked)) 1 gm IVPB DAILY [facility] Last Admin: 06/30/16 09:23 Dose: 1 gm Chlorhexidine Gluconate (Hibiclens For Decolonization -) 1 applic TP HS [facility] Last Admin: 06/29/16 21:07 Dose: 1 applic Duloxetine HCl (Cymbalta -) 60 mg PO DAILY [facility] Last Admin: 06/30/16 09:20 Dose: 60 mg Enoxaparin Sodium (Lovenox -) 40 mg SQ DAILY [facility] Last Admin: 06/30/16 09:24 Dose: 40 mg Furosemide (Lasix Injection -) 40 mg IVPUSH DAILY [facility] Last Admin: 06/30/16 09:23 Dose: 40 mg Hydrochlorothiazide (Hctz -) 25 mg PO DAILY [facility] Last Admin: 06/30/16 09:22 Dose: 25 mg Labetalol HCl (Normodyne -) 100 mg PO TID [facility] Last Admin: 06/30/16 05:35 Dose: 100 mg Lisinopril (Prinivil) 40 mg PO DAILY [facility] Last Admin: 06/30/16 09:22 Dose: 40 mg Mupirocin (Bactroban Ointment (For Decolonization) -) 1 applic NS BID [facility] Stop: 07/04/16 21:59 Last Admin: 06/30/16 09:32 Dose: 1 applic Nicotine (Nicoderm Patch -) 7 mg TD DAILY [facility] Last Admin: 06/29/16 21:07 Dose: 7 mg Nifedipine (Procardia Xl -) 90 mg PO DAILY [facility] Last Admin: 06/30/16 09:23 Dose: 90 mg Nitroglycerin (Nitrostat -) 0.4 mg SL Q5M PRN PRN Reason: FOR CHEST PAIN Ondansetron HCl (Zofran Injection) 4 mg IVPB Q6H PRN PRN Reason: NAUSEA Last Admin: 06/29/16 18:15 Dose: 4 mg Tamsulosin HCl (Flomax -) 0.4 mg PO DAILY [facility] Last Admin: 06/30/16 09:22 Dose: 0.4 mg Zolpidem Tartrate (Ambien -) 10 mg PO HS PRN PRN Reason: INSOMNIA Last Admin: 06/29/16 21:10 Dose: 10 mg - Objective Vital Signs: Vital Signs Temperature 97.8 F 06/30/16 10:00 Pulse Rate 76 06/30/16 12:00 Respiratory Rate 24 06/30/16 12:00 Blood Pressure 133/93 06/30/16 12:00 O2 Sat by Pulse Oximetry (%) 99 06/30/16 11:55 Constitutional: Yes: Well Nourished, No Distress, Calm Eyes: Yes: Conjunctiva Clear, EOM Intact HENT: Yes: WNL, Atraumatic, Normocephalic Neck: Yes: Supple, Trachea Midline Cardiovascular: Yes: WNL, Regular Rate and Rhythm Respiratory: Yes: Other CTAB Gastrointestinal: Yes: Soft, Tenderness (LUQ) Edema: No ...Motor Strength: WNL Labs: CBC, BMP 06/30/16 05:15 06/30/16 05:15 INR, PTT INR 1.12 (0.82-1.09) 06/29/16 12:53 Assessment/Plan 56M with chest pain SOB and ABD pain with elevated troponins and hypertensive urgency requring labetelol gtt. Hypertension/hypertensive urgency: continue home meds nifedepine labetelol HCTZ and lisinopril PO ECHO pending off labetelol gtt BP better controlled now will send Utox Chest pain/troponinemia:could be from demand ischemia/NSTEMI/ cardiology consult trend troponins with EKGs troponins unchanged Chest pain resolved Possible CHF shortness of breath could be due to new onset CHF: Echo CXR imrpoved Cardiology consult lasix strict I/O daily weights Abdominal pain/Possible UTI Calcified stones seen on CT Ceftriaxone for possible UTI Dietary consult for diet to decrease incidence of calcified stones UCx pending UA pending BPH no issues at this time outpt follow up continue flomax PPx: Lovenox No GI PPx needed at this time No PT consult needed at this time FEN: no fluids no electrolyte issues sodium controlled diet Can monitor on floor patient has no issues that require ICU care Plan to be transferred for angiography per cardiology
[2016-06-30 14:41] LABS: URINE APPEARANCE CLEAR; URINE BILIRUBIN NEGATIVE (NEGATIVE); URINE BLOOD NEGATIVE (NEGATIVE); URINE COLOR LT. YELLOW; URINE GLUCOSE (UA) NEGATIVE (NEGATIVE); URINE KETONE NEGATIVE (NEGATIVE); URINE LEUK ESTERASE NEGATIVE (NEGATIVE); URINE NITRITE NEGATIVE (NEGATIVE); URINE PROTEIN NEGATIVE (NEGATIVE); URINE UROBILINOGEN 0.2 E.U/dl E.U./dl (0.2-1.0)
[2016-06-30 15:01] LABS: URINE MARIJUANA THC POSITIVE ng/ml (CUTOFF=50)
[2016-06-30] MEDS: NICOTINE 7 MG/24 HOURS TOPICAL PATCH TD SCH (15:19)
--- NOTE | 2016-06-30 15:44 | PN ---
Physical Exam: SUBJECTIVE: Patient seen and examined at bedside in ICU. OBJECTIVE: Vital Signs Period Temp Pulse Resp BP Sys/Rosado Pulse Ox Last 24 Hr 97.3 F-98.4 F 57-90 14-30 113-196/77-155 99-100 GENERAL: The patient is awake, alert, and fully oriented, in no acute distress. HEAD: Normal with no signs of trauma. EYES: PERRL, extraocular movements intact, sclera anicteric, conjunctiva clear. No ptosis. LUNGS: Breath sounds equal, clear to auscultation bilaterally, no wheezes, no crackles, no accessory muscle use. HEART: Regular rate and rhythm, S1, S2 without murmur, rub or gallop. ABDOMEN: Soft, nontender, nondistended, normoactive bowel sounds, no guarding, no rebound, no hepatosplenomegaly, no masses. EXTREMITIES: 2+ pulses, warm, well-perfused, no edema. NEUROLOGICAL: Cranial nerves II through XII grossly intact. Normal speech, gait not observed. PSYCH: Normal mood, normal affect. SKIN: Warm, dry, normal turgor, no rashes or lesions noted Laboratory Results - last 24 hr 06/29/16 06/29/16 06/30/16 18:15 18:15 05:15 WBC 6.2 RBC 3.82 L Hgb 9.8 L Hct 32.2 L MCV 84.2 MCHC 30.5 L RDW 14.8 Plt Count 180 MPV 8.0 Neutrophils % 60.6 Lymphocytes % 27.2 D Monocytes % 9.4 Eosinophils % 2.1 Basophils % 0.7 Sodium Potassium Chloride Carbon Dioxide Anion Gap BUN Creatinine Creat Clearance w eGFR Random Glucose Hemoglobin A1c % Calcium Magnesium Total Bilirubin AST ALT Alkaline Phosphatase Creatine Kinase 160 Creatine Kinase Index 1.6 CK-MB (CK-2) 2.552 CK-MB (CK-2) Rel Index Cancelled Troponin I 0.24 H B-Natriuretic Peptide Total Protein Albumin Urine Color Urine Appearance Urine pH Ur Specific [place] Urine Protein Urine Glucose (UA) Urine Ketones Urine Blood Urine Nitrite Urine Bilirubin Urine Urobilinogen Ur Leukocyte Esterase Opiates Screen Methadone Screen Barbiturate Screen Phencyclidine Screen Ur Amphetamines Screen MDMA (Ecstasy) Screen Benzodiazepines Screen Cocaine Screen U Marijuana (THC) Screen 06/30/16 06/30/16 06/30/16 05:15 05:15 05:15 WBC RBC Hgb Hct MCV MCHC RDW Plt Count MPV Neutrophils % Lymphocytes % Monocytes % Eosinophils % Basophils % Sodium 141 Potassium 3.7 Chloride 106 Carbon Dioxide 27 Anion Gap 8 BUN 15 Creatinine 1.3 Creat Clearance w eGFR 56.90 Random Glucose 87 Hemoglobin A1c % 4.4 L Calcium 8.4 L Magnesium 1.8 Total Bilirubin 0.7 D AST 17 D ALT 23 Alkaline Phosphatase 80 Creatine Kinase 150 Creatine Kinase Index 1.4 CK-MB (CK-2) 2.144 CK-MB (CK-2) Rel Index Troponin I 0.24 H B-Natriuretic Peptide 1617.10 H Cancelled Total Protein 6.4 Albumin 3.2 L Urine Color Urine Appearance Urine pH Ur Specific [place] Urine Protein Urine Glucose (UA) Urine Ketones Urine Blood Urine Nitrite Urine Bilirubin Urine Urobilinogen Ur Leukocyte Esterase Opiates Screen Methadone Screen Barbiturate Screen Phencyclidine Screen Ur Amphetamines Screen MDMA (Ecstasy) Screen Benzodiazepines Screen Cocaine Screen U Marijuana (THC) Screen 06/30/16 06/30/16 06/30/16 05:15 05:51 12:30 WBC RBC Hgb Hct MCV MCHC RDW Plt Count MPV Neutrophils % Lymphocytes % Monocytes % Eosinophils % Basophils % Sodium Potassium Chloride Carbon Dioxide Anion Gap BUN Creatinine Creat Clearance w eGFR Random Glucose Hemoglobin A1c % Calcium Magnesium Total Bilirubin AST ALT Alkaline Phosphatase Creatine Kinase Cancelled Creatine Kinase Index CK-MB (CK-2) CK-MB (CK-2) Rel Index Cancelled Troponin I Cancelled 0.23 H B-Natriuretic Peptide Total Protein Albumin Urine Color Urine Appearance Urine pH Ur Specific [place] Urine Protein Urine Glucose (UA) Urine Ketones Urine Blood Urine Nitrite Urine Bilirubin Urine Urobilinogen Ur Leukocyte Esterase Opiates Screen Methadone Screen Barbiturate Screen Phencyclidine Screen Ur Amphetamines Screen MDMA (Ecstasy) Screen Benzodiazepines Screen Cocaine Screen U Marijuana (THC) Screen 06/30/16 06/30/16 13:40 13:40 WBC RBC Hgb Hct MCV MCHC RDW Plt Count MPV Neutrophils % Lymphocytes % Monocytes % Eosinophils % Basophils % Sodium Potassium Chloride Carbon Dioxide Anion Gap BUN Creatinine Creat Clearance w eGFR Random Glucose Hemoglobin A1c % Calcium Magnesium Total Bilirubin AST ALT Alkaline Phosphatase Creatine Kinase Creatine Kinase Index CK-MB (CK-2) CK-MB (CK-2) Rel Index Troponin I B-Natriuretic Peptide Total Protein Albumin Urine Color Lt. yellow Urine Appearance Clear Urine pH 7.0 Ur Specific [place] 1.010 Urine Protein Negative Urine Glucose (UA) Negative Urine Ketones Negative Urine Blood Negative Urine Nitrite Negative Urine Bilirubin Negative Urine Urobilinogen 0.2 e.u/dl Ur Leukocyte Esterase Negative Opiates Screen Negative Methadone Screen Negative Barbiturate Screen Negative Phencyclidine Screen Negative Ur Amphetamines Screen Negative MDMA (Ecstasy) Screen Negative Benzodiazepines Screen Negative Cocaine Screen Negative U Marijuana (THC) Screen Positive Current Medications Generic Name Dose Route Start Last Admin Trade Name Freq PRN Reason Stop Dose Admin Acetaminophen 650 mg 06/29/16 15:45 Tylenol - PO Q6H PRN FEVER OR PAIN Aspirin 81 mg 06/30/16 16:00 06/30/16 15:57 Asa - PO 81 mg DAILY [facility] Administration Aspirin 81 mg 06/30/16 16:30 Ecotrin - PO DAILY [facility] Ceftriaxone Sodium 1 gm 06/29/16 17:30 06/30/16 09:23 Rocephin 1gm Ivpb (Pre-Docked) IVPB 1 gm DAILY [facility] Administration Chlorhexidine Gluconate 1 applic 06/29/16 22:00 06/29/16 21:07 Hibiclens For Decolonization - TP 1 applic HS [facility] Administration Duloxetine HCl 60 mg 06/30/16 10:00 06/30/16 09:20 Cymbalta - PO 60 mg DAILY [facility] Administration Enoxaparin Sodium 40 mg 06/30/16 10:00 06/30/16 09:24 Lovenox - SQ 40 mg DAILY [facility] Administration Furosemide 40 mg 06/30/16 10:00 06/30/16 09:23 Lasix Injection - IVPUSH 40 mg DAILY [facility] Administration Hydrochlorothiazide 25 mg 06/30/16 10:00 06/30/16 09:22 Hctz - PO 25 mg DAILY [facility] Administration Labetalol HCl 100 mg 06/29/16 22:00 06/30/16 15:18 Normodyne - PO 100 mg TID [facility] Administration Lisinopril 40 mg 06/30/16 10:00 06/30/16 09:22 Prinivil PO 40 mg DAILY [facility] Administration Mupirocin 1 applic 06/29/16 22:00 06/30/16 09:32 Bactroban Ointment (For Decolonization) - NS 07/04/16 21:59 1 applic BID [facility] Administration Nicotine 7 mg 06/29/16 17:00 06/30/16 15:19 Nicoderm Patch - TD 7 mg DAILY [facility] Administration Nifedipine 90 mg 06/30/16 10:00 06/30/16 09:23 Procardia Xl - PO 90 mg DAILY [facility] Administration Nitroglycerin 0.4 mg 06/29/16 15:45 Nitrostat - SL Q5M PRN FOR CHEST PAIN Ondansetron HCl 4 mg 06/29/16 15:45 06/29/16 18:15 Zofran Injection IVPB 4 mg Q6H PRN Administration NAUSEA Tamsulosin HCl 0.4 mg 06/30/16 10:00 06/30/16 09:22 Flomax - PO 0.4 mg DAILY [facility] Administration Zolpidem Tartrate 10 mg 06/29/16 22:00 06/29/16 21:10 Ambien - PO 10 mg HS PRN Administration INSOMNIA Imaging 06/29 CTA chest/abdomen: No evidence of thoracic or abdominal aneurysm or dissection. Small bibasilar pleural effusions. Mediastinal and hilar adenopathy 06/30 Echo: LV moderately dilated, EF normal, no RWMA; RV normal; BLAE; moderate MR, mild TR, RVSP normal, ASSESSMENT & PLAN 56 year-old male with a significant PMH of uncontrolled HTN due to poor medication compliance, NIDDM, renal calculi, and a mildly dilated aorta (3.9cm) admitted for hypertensive emergency and acute on chronic diastolic heart failure. Hypertensive emergency Acute on chronic diastolic heart failure --documented BP in ED 196/155 triggering acute exacerbation of chronic diastolic heart failure as evidenced by SOB, chest pain, Erinn-B lines on CXR and rales on exam --treated in ED with HCTZ, Procardia, labetolol, lasix, and lisinopril; then started on labetolol drip and NIPPV and transferred to ICU --BP has stabilized, off drips --resume home meds: lisinopril, labetalol, Procardia, HCTZ --continue IV Lasix, strict I&Os, daily weights --TSH pending --cardiology following Elevated troponins secondary to heart failure --flat trending, likely from demand ischemia --two previous cardiac caths non-obstructive --continue ASA --plan for ischemic workup when euvolemic Abdominal pain --no abdominal aortic aneurysm identified on CT --benign exam --possible UTI, UA with 19 WBCs, continue empiric ceftriaxone until urine culture back Mildly dilated aorta --chronic condition which is monitored outpatient by Dr. Rooney --no acute issues NIDDM --HgbA1C 4.4 --Novolog sliding scale coverage Marijuana Use --utox positive for marijuana F/E/N Fluids: PO intake adequate Electrolytes: replete as indicated Nutrition: low sodium, diabetic diet DVT prophylaxis: lovenox, oob, ambulation Dispo: continues to require inpatient care. Full Code. Visit type - Emergency Visit Emergency Visit: Yes ED Registration Date: 06/29/16 Care time: The patient presented to the Emergency Department on the above date and was hospitalized for further evaluation of their emergent condition. - New Patient This patient is new to me today: Yes Date on this admission: 06/30/16 - Critical Care Critical Care patient: No
[2016-06-30] MEDS: ASPIRIN 81 MG CHEWABLE TABLETS PO SCH (15:57)
[2016-06-30] MEDS ORDERED: ASPIRIN COATED 81 MG TABLET.EC PO SCH (16:30)
[2016-06-30] MEDS ORDERED: NITROGLYCERIN SUBLINGUAL 1/150 0.4 MG TAB SL PRN (16:36)
[2016-06-30] MEDS ORDERED: ONDANSETRON 4 MG/2 ML VIAL IVPB PRN (16:36)
[2016-06-30] MEDS ORDERED: ACETAMINOPHEN 325 MG TABLET (FP) PO PRN (16:36)
[2016-06-30] MEDS: INSULIN SLIDING SCALE (NOVOLOG) 1 VIAL SQ SCH (22:36)
[2016-06-30] MEDS: ZOLPIDEM TARTRATE 5 MG TABLET PO PRN (22:38)
[2016-07-01] MEDS: LABETALOL HCL 100 MG TABLET (FP) PO SCH ×3 (06:31→21:34)
[2016-07-01] MEDS: INSULIN SLIDING SCALE (NOVOLOG) 1 VIAL SQ SCH ×4 (06:31→21:36)
[2016-07-01 08:15] LABS: BASOPHIL 0.9 % (0-2.0); MCH 26.6 pg (25.7-33.7); MCHC 31.9 g/dl (32.0-35.9); MEAN CELL VOLUME 83.5 fl (80-96); MEAN PLT VOLUME 7.9 fl (7.5-11.1); NEUTROPHILS 51.6 % (42.8-82.8); PLATELET COUNT 190 K/MM3 (134-434); RDW 14.9 % (11.9-15.9); WHITE BLOOD COUNT 5.5 K/mm3 (4.0-10.0)
[2016-07-01 09:17] LABS: ALBUMIN 3.8 g/dl (3.4-5.0); BILIRUBIN,TOTAL 0.9 mg/dL (0.2-1.0); CALCIUM 8.9 mg/dL (8.5-10.1); CREATININE 1.4 mg/dL (0.7-1.3); MAGNESIUM 1.9 mg/dL (1.8-2.4); THYROID STIMULATING HORMONE 1.66 uIU/ml (0.358-3.74); TOT PROT 7.6 g/dl (6.4-8.2)
[2016-07-01] MEDS ORDERED: PT OWN MED DRAWER 7, Y5N ONE (09:35)
[2016-07-01] MEDS: TAMSULOSIN HCL 0.4 MG CAP.ER.24H (FP) PO SCH (09:39)
[2016-07-01] MEDS: FUROSEMIDE 40 MG/4 ML INJECTABLE VIAL IVPUSH SCH (09:39)
[2016-07-01] MEDS: LISINOPRIL 20 MG TABLET (FP) PO SCH (09:39)
[2016-07-01] MEDS: HYDROCHLOROTHIAZIDE 25 MG TABLET (FP) PO SCH (09:39)
[2016-07-01] MEDS: ASPIRIN 81 MG CHEWABLE TABLETS PO SCH (09:39)
[2016-07-01] MEDS: NIFEdipine E.R. 90 MG TABLET (FP) PO SCH (09:39)
[2016-07-01] MEDS: MUPIROCIN 2% TOPICAL OINTMENT FOR DECOLONIZATION NS SCH (09:40)
[2016-07-01] MEDS: DULoxetine HCL 30 MG CAPSULE.DR (FP) PO SCH (09:40)
[2016-07-01] MEDS: NICOTINE 7 MG/24 HOURS TOPICAL PATCH TD SCH (09:40)
--- NOTE | 2016-07-01 09:55 | PN ---
Progress Note, Physician Chief Complaint: no further chest pain TnI remained flat History of Present Illness: BP improved Echo with Moderate MR - Current Medication List Current Medications: Active Medications Acetaminophen (Tylenol -) 650 mg PO Q6H PRN PRN Reason: FEVER OR PAIN Aspirin (Asa -) 81 mg PO DAILY [facility] Last Admin: 07/01/16 09:39 Dose: 81 mg Ceftriaxone Sodium (Rocephin 1gm Ivpb (Pre-Docked)) 1 gm IVPB DAILY [facility] Last Admin: 07/01/16 09:38 Dose: 1 gm Chlorhexidine Gluconate (Hibiclens For Decolonization -) 1 applic TP HS [facility] Duloxetine HCl (Cymbalta -) 60 mg PO DAILY [facility] Last Admin: 07/01/16 09:40 Dose: 60 mg Enoxaparin Sodium (Lovenox -) 40 mg SQ DAILY [facility] Last Admin: 07/01/16 09:39 Dose: 40 mg Furosemide (Lasix Injection -) 40 mg IVPUSH DAILY [facility] Last Admin: 07/01/16 09:39 Dose: 40 mg Hydrochlorothiazide (Hctz -) 25 mg PO DAILY [facility] Last Admin: 07/01/16 09:39 Dose: 25 mg Insulin Aspart (Novolog Vial Sliding Scale -) 1 vial SQ ACHS [facility] PRN Reason: Protocol Last Admin: 07/01/16 06:31 Dose: Not Given Labetalol HCl (Normodyne -) 100 mg PO TID [facility] Last Admin: 07/01/16 06:31 Dose: 100 mg Lisinopril (Prinivil) 40 mg PO DAILY [facility] Last Admin: 07/01/16 09:39 Dose: 40 mg Mupirocin (Bactroban Ointment (For Decolonization) -) 1 applic NS BID [facility] Stop: 07/04/16 21:59 Last Admin: 07/01/16 09:40 Dose: Not Given Nicotine (Nicoderm Patch -) 7 mg TD DAILY [facility] Last Admin: 07/01/16 09:40 Dose: 7 mg Nifedipine (Procardia Xl -) 90 mg PO DAILY [facility] Last Admin: 07/01/16 09:39 Dose: 90 mg Nitroglycerin (Nitrostat -) 0.4 mg SL Q5M PRN PRN Reason: FOR CHEST PAIN Ondansetron HCl (Zofran Injection) 4 mg IVPB Q6H PRN PRN Reason: NAUSEA Tamsulosin HCl (Flomax -) 0.4 mg PO DAILY [facility] Last Admin: 07/01/16 09:39 Dose: 0.4 mg Zolpidem Tartrate (Ambien -) 10 mg PO HS PRN PRN Reason: INSOMNIA Last Admin: 06/30/16 22:38 Dose: 10 mg - Objective Vital Signs: Vital Signs Temperature 98.2 F 07/01/16 05:19 Pulse Rate 75 07/01/16 05:19 Respiratory Rate 20 07/01/16 05:19 Blood Pressure 137/79 07/01/16 05:19 O2 Sat by Pulse Oximetry (%) 97 06/30/16 21:00 Constitutional: Yes: No Distress Cardiovascular: Yes: Regular Rate and Rhythm Respiratory: Yes: CTA Bilaterally Gastrointestinal: Yes: Soft Edema: No Neurological: Yes: Alert Labs: CBC, BMP 07/01/16 06:30 07/01/16 06:30 INR, PTT INR 1.12 (0.82-1.09) 06/29/16 12:53 Laboratory Tests 06/30/16 06/30/16 07/01/16 12:30 19:45 06:30 WBC Hgb Hct Plt Count Potassium 4.3 Creatinine 1.4 H Troponin I 0.23 H 0.20 H 07/01/16 06:30 WBC 5.5 Hgb 11.8 D Hct 37.1 D Plt Count 190 Potassium Creatinine Troponin I - ....Imaging Chest X-ray: Report Reviewed Assessment/Plan 56 M well known to me from office with chronic HTN, Moderate MR, non-adherent w / medical therapy, mildly dilated aorta on echo (3.9cm) presents to ER with SOB , uncontrolled HTN and chest tightness found to be in CHF, likely acute on chronic diastolic CHF triggered by uncontrolled HTN, CTA negative for dissection. + TnI likely due to acute on chronic diastolic CHF/moderate MR triggered by uncontrolled HTN. However, patient also described chest pain and tightness, which have now resolved. REC: 1. BP much improved, continue current Rx- emphasized the importance of adherence with meds as outpatient. 2. Given + TnI and initial chest pain, a definitive coronary assessment is prudent. Several risk factors (HTN, smoker, ascending aortic aneurysm). Have recommended cath, risks and benefits reviewed. Patient has agreed to transfer and will be transferred when bed available to [facility]- Dr. Jose Zayas accepting.
[2016-07-01] MEDS ORDERED: ENOXAPARIN NA (PORCINE) 40 MG/0.4 ML DISP.SYRIN SQ SCH (10:00)
[2016-07-01] MEDS ORDERED: DULoxetine HCL 60 MG CAPSULE.DR PO SCH (10:00)
[2016-07-01] MEDS ORDERED: cefTRIAXone 1 GM/50 ML BAG (PRE-DOCKED) IVPB SCH (10:00)
--- NOTE | 2016-07-01 11:25 | PN ---
Physical Exam: SUBJECTIVE: Patient seen and examined. No complaints; denies shortness of breath , chest pain. Ambulating to bathroom without dyspnea. OBJECTIVE: Vital Signs Period Temp Pulse Resp BP Sys/Rosado Pulse Ox Last 24 Hr 97.7 F-98.2 F 64-76 20-24 123-137/79-94 95-99 GENERAL: The patient is awake, alert, and fully oriented, in no acute distress. HEAD: Normal with no signs of trauma. EYES: PERRL, extraocular movements intact, sclera anicteric, conjunctiva clear. No ptosis. ENT: Ears normal, nares patent, oropharynx clear without exudates, moist mucous membranes. NECK: Trachea midline, full range of motion, supple. LUNGS: Breath sounds equal, clear to auscultation bilaterally, no wheezes, no crackles, no accessory muscle use. HEART: Regular rate and rhythm, S1, S2 without murmur, rub or gallop. ABDOMEN: Soft, nontender, nondistended, normoactive bowel sounds, no guarding, no rebound, no hepatosplenomegaly, no masses. EXTREMITIES: 2+ pulses, warm, well-perfused, no edema. NEUROLOGICAL: Cranial nerves II through XII grossly intact. Normal speech, gait not observed. PSYCH: Normal mood, normal affect. SKIN: Warm, dry, normal turgor, no rashes or lesions noted Laboratory Results - last 24 hr 06/30/16 06/30/16 06/30/16 12:30 13:40 13:40 WBC Corrected WBC (auto) RBC Hgb Hct MCV MCHC RDW Plt Count MPV Neutrophils % Lymphocytes % Monocytes % Eosinophils % Basophils % Differential Comment Platelet Estimate Platelet Comment RBC Morphology Sodium Potassium Chloride Carbon Dioxide Anion Gap BUN Creatinine Creat Clearance w eGFR POC Glucometer Random Glucose Calcium Magnesium Total Bilirubin AST ALT Alkaline Phosphatase Troponin I 0.23 H Total Protein Albumin TSH Urine Color Lt. yellow Urine Appearance Clear Urine pH 7.0 Ur Specific [place] 1.010 Urine Protein Negative Urine Glucose (UA) Negative Urine Ketones Negative Urine Blood Negative Urine Nitrite Negative Urine Bilirubin Negative Urine Urobilinogen 0.2 e.u/dl Ur Leukocyte Esterase Negative Opiates Screen Negative Methadone Screen Negative Barbiturate Screen Negative Phencyclidine Screen Negative Ur Amphetamines Screen Negative MDMA (Ecstasy) Screen Negative Benzodiazepines Screen Negative Cocaine Screen Negative U Marijuana (THC) Screen Positive 06/30/16 06/30/16 07/01/16 19:45 21:53 06:09 WBC Corrected WBC (auto) RBC Hgb Hct MCV MCHC RDW Plt Count MPV Neutrophils % Lymphocytes % Monocytes % Eosinophils % Basophils % Differential Comment Platelet Estimate Platelet Comment RBC Morphology Sodium Potassium Chloride Carbon Dioxide Anion Gap BUN Creatinine Creat Clearance w eGFR POC Glucometer 112 106 Random Glucose Calcium Magnesium Total Bilirubin AST ALT Alkaline Phosphatase Troponin I 0.20 H Total Protein Albumin TSH Urine Color Urine Appearance Urine pH Ur Specific [place] Urine Protein Urine Glucose (UA) Urine Ketones Urine Blood Urine Nitrite Urine Bilirubin Urine Urobilinogen Ur Leukocyte Esterase Opiates Screen Methadone Screen Barbiturate Screen Phencyclidine Screen Ur Amphetamines Screen MDMA (Ecstasy) Screen Benzodiazepines Screen Cocaine Screen U Marijuana (THC) Screen 07/01/16 07/01/16 07/01/16 06:30 06:30 06:30 WBC Cancelled 5.5 Corrected WBC (auto) Cancelled RBC Cancelled 4.44 Hgb Cancelled 11.8 D Hct Cancelled 37.1 D MCV Cancelled 83.5 MCHC Cancelled 31.9 L RDW Cancelled 14.9 Plt Count Cancelled 190 MPV Cancelled 7.9 Neutrophils % 51.6 Lymphocytes % 31.0 Monocytes % 14.5 H Eosinophils % 2.0 Basophils % 0.9 Differential Comment Cancelled Platelet Estimate Cancelled Platelet Comment Cancelled RBC Morphology Cancelled Sodium 137 Potassium 4.3 Chloride 100 Carbon Dioxide 29 Anion Gap 8 BUN 19 H D Creatinine 1.4 H Creat Clearance w eGFR 52.24 POC Glucometer Random Glucose 89 Calcium 8.9 Magnesium 1.9 Total Bilirubin 0.9 D AST 15 ALT 25 Alkaline Phosphatase 97 D Troponin I Total Protein 7.6 Albumin 3.8 TSH 1.66 Urine Color Urine Appearance Urine pH Ur Specific [place] Urine Protein Urine Glucose (UA) Urine Ketones Urine Blood Urine Nitrite Urine Bilirubin Urine Urobilinogen Ur Leukocyte Esterase Opiates Screen Methadone Screen Barbiturate Screen Phencyclidine Screen Ur Amphetamines Screen MDMA (Ecstasy) Screen Benzodiazepines Screen Cocaine Screen U Marijuana (THC) Screen Active Medications Generic Name Dose Route Start Last Admin Trade Name Freq PRN Reason Stop Dose Admin Acetaminophen 650 mg 06/30/16 16:36 Tylenol - PO Q6H PRN FEVER OR PAIN Aspirin 81 mg 06/30/16 16:00 07/01/16 09:39 Asa - PO 81 mg DAILY [facility] Administration Ceftriaxone Sodium 1 gm 07/01/16 10:00 07/01/16 09:38 Rocephin 1gm Ivpb (Pre-Docked) IVPB 1 gm DAILY [facility] Administration Chlorhexidine Gluconate 1 applic 06/30/16 22:00 Hibiclens For Decolonization - TP HS [facility] Duloxetine HCl 60 mg 07/01/16 10:00 07/01/16 09:40 Cymbalta - PO 60 mg DAILY [facility] Administration Enoxaparin Sodium 40 mg 07/01/16 10:00 07/01/16 09:39 Lovenox - SQ 40 mg DAILY [facility] Administration Furosemide 40 mg 07/01/16 10:00 07/01/16 09:39 Lasix Injection - IVPUSH 40 mg DAILY [facility] Administration Hydrochlorothiazide 25 mg 07/01/16 10:00 07/01/16 09:39 Hctz - PO 25 mg DAILY [facility] Administration Insulin Aspart 1 vial 06/30/16 22:00 07/01/16 06:31 Novolog Vial Sliding Scale - SQ Not Given ACHS [facility] Protocol Labetalol HCl 100 mg 06/30/16 22:00 07/01/16 06:31 Normodyne - PO 100 mg TID [facility] Administration Lisinopril 40 mg 07/01/16 10:00 07/01/16 09:39 Prinivil PO 40 mg DAILY [facility] Administration Mupirocin 1 applic 06/30/16 22:00 07/01/16 09:40 Bactroban Ointment (For Decolonization) - NS 07/04/16 21:59 Not Given BID [facility] Nicotine 7 mg 07/01/16 10:00 07/01/16 09:40 Nicoderm Patch - TD 7 mg DAILY [facility] Administration Nifedipine 90 mg 07/01/16 10:00 07/01/16 09:39 Procardia Xl - PO 90 mg DAILY [facility] Administration Nitroglycerin 0.4 mg 06/30/16 16:36 Nitrostat - SL Q5M PRN FOR CHEST PAIN Ondansetron HCl 4 mg 06/30/16 16:36 Zofran Injection IVPB Q6H PRN NAUSEA Tamsulosin HCl 0.4 mg 07/01/16 10:00 07/01/16 09:39 Flomax - PO 0.4 mg DAILY [facility] Administration Zolpidem Tartrate 10 mg 06/30/16 16:36 06/30/16 22:38 Ambien - PO 10 mg HS PRN Administration INSOMNIA Imaging 06/29 CTA chest/abdomen: No evidence of thoracic or abdominal aneurysm or dissection. Small bibasilar pleural effusions. Mediastinal and hilar adenopathy 06/30 Echo: LV moderately dilated, EF normal, no RWMA; RV normal; BLAE; moderate MR, mild TR, RVSP normal ASSESSMENT/PLAN: 56 year-old male admitted with hypertensive emergency, respiratory failure, and [id number] diastolic heart failure. 1. Cardiac: Hypertensive emergency -Initially required ICU stay on Labetolol gtt and NIPPV -Now stable on home BP meds (HCTZ, Procardia, Labetolol, Lisinopril, Lasix) -Troponins elevated (max 0.29) but downtrending -Cardiology following Chest pain, elevated troponins -Downtrending -Continue ASA -Transfer for cardiac cath when bed available at [facility] Mildly dilated aorta -Chronic condition which is monitored outpatient by Dr. Rooney 2. GI: Abdominal pain -No abdominal aortic aneurysm identified -Was treated with Ceftriaxone for suspected UTI; culture negative, will dc -No pain presently, no tenderness on exam 3. Endocrine: NIDDM -HgbA1C 4.4 -Continue FS ACHS -Novolog sliding scale coverage 4. F/E/N -Adequate PO intake -Electrolytes: replete as indicated -Nutrition: low sodium, diabetic diet 5. Ppx -Lovenox 40mg sq daily -Ambulation FULL CODE DISPO: Transfer for cath when bed available. Problem List - Problems (1) Hypertensive emergency Code(s): I10 - ESSENTIAL (PRIMARY) HYPERTENSION (2) CHF (congestive heart failure) Code(s): I50.9 - HEART FAILURE, UNSPECIFIED Qualifiers: Congestive heart failure type: unspecified congestive heart failure type Congestive heart failure chronicity: unspecified congestive heart failure chronicity Qualified Code(s): I50.9 - Heart failure, unspecified (3) Abdominal pain Code(s): R10.9 - UNSPECIFIED ABDOMINAL PAIN (4) DVT prophylaxis Code(s): NVK6785 - Visit type - Emergency Visit Emergency Visit: Yes ED Registration Date: 06/29/16 Care time: The patient presented to the Emergency Department on the above date and was hospitalized for further evaluation of their emergent condition. - New Patient This patient is new to me today: No - Critical Care Critical Care patient: No - Discharge Referral Referred to [facility] Med P.C.: No
--- NOTE | 2016-07-01 12:21 | PN ---
Progress Note (short form) - Note Progress Note: PULMONARY Denies shortness of breath or chest pain. Last Vital Signs Temp Pulse Resp BP Pulse Ox 98.2 F 77 20 122/80 96 07/01/16 05:19 07/01/16 10:00 07/01/16 10:00 07/01/16 10:00 07/01/16 09:00 Gen: NAD at rest Heart: RRR Lung: decreased breath sounds at the bases Abd: soft, nontender Ext: no edema CBC, BMP 07/01/16 06:30 07/01/16 06:30 Active Medications Acetaminophen (Tylenol -) 650 mg PO Q6H PRN PRN Reason: FEVER OR PAIN Aspirin (Asa -) 81 mg PO DAILY [facility] Last Admin: 07/01/16 09:39 Dose: 81 mg Ceftriaxone Sodium (Rocephin 1gm Ivpb (Pre-Docked)) 1 gm IVPB DAILY [facility] Last Admin: 07/01/16 09:38 Dose: 1 gm Chlorhexidine Gluconate (Hibiclens For Decolonization -) 1 applic TP HS [facility] Duloxetine HCl (Cymbalta -) 60 mg PO DAILY [facility] Last Admin: 07/01/16 09:40 Dose: 60 mg Enoxaparin Sodium (Lovenox -) 40 mg SQ DAILY [facility] Last Admin: 07/01/16 09:39 Dose: 40 mg Furosemide (Lasix Injection -) 40 mg IVPUSH DAILY [facility] Last Admin: 07/01/16 09:39 Dose: 40 mg Hydrochlorothiazide (Hctz -) 25 mg PO DAILY [facility] Last Admin: 07/01/16 09:39 Dose: 25 mg Insulin Aspart (Novolog Vial Sliding Scale -) 1 vial SQ ACHS [facility] PRN Reason: Protocol Last Admin: 07/01/16 11:45 Dose: Not Given Labetalol HCl (Normodyne -) 100 mg PO TID [facility] Last Admin: 07/01/16 06:31 Dose: 100 mg Lisinopril (Prinivil) 40 mg PO DAILY [facility] Last Admin: 07/01/16 09:39 Dose: 40 mg Mupirocin (Bactroban Ointment (For Decolonization) -) 1 applic NS BID [facility] Stop: 07/04/16 21:59 Last Admin: 07/01/16 09:40 Dose: Not Given Nicotine (Nicoderm Patch -) 7 mg TD DAILY [facility] Last Admin: 07/01/16 09:40 Dose: 7 mg Nifedipine (Procardia Xl -) 90 mg PO DAILY [facility] Last Admin: 07/01/16 09:39 Dose: 90 mg Nitroglycerin (Nitrostat -) 0.4 mg SL Q5M PRN PRN Reason: FOR CHEST PAIN Ondansetron HCl (Zofran Injection) 4 mg IVPB Q6H PRN PRN Reason: NAUSEA Tamsulosin HCl (Flomax -) 0.4 mg PO DAILY [facility] Last Admin: 07/01/16 09:39 Dose: 0.4 mg Zolpidem Tartrate (Ambien -) 10 mg PO HS PRN PRN Reason: INSOMNIA Last Admin: 06/30/16 22:38 Dose: 10 mg A/P Hypertensive Urgency Likely Acute on Chronic LV Diastolic Heart Failure Nephrolithiasis Smoker - BP control with oral meds - can d/c empiric antibiotics as cultures negative - counseled on smoking cessation and medication compliance - DVT prophylaxis - for cardiac cath
[2016-07-01] MEDS: ZOLPIDEM TARTRATE 5 MG TABLET PO PRN (21:34)
[2016-07-02 06:49] LABS: BASOPHIL 1.1 % (0-2.0); EOSINOPHIL 2.3 % (0-4.5); MCH 26.5 pg (25.7-33.7); MCHC 31.8 g/dl (32.0-35.9); MEAN CELL VOLUME 83.2 fl (80-96); MEAN PLT VOLUME 7.4 fl (7.5-11.1); NEUTROPHILS 45.9 % (42.8-82.8); PLATELET COUNT 189 K/MM3 (134-434); RDW 14.4 % (11.9-15.9); WHITE BLOOD COUNT 4.7 K/mm3 (4.0-10.0)
[2016-07-02] MEDS: INSULIN SLIDING SCALE (NOVOLOG) 1 VIAL SQ SCH (07:00)
[2016-07-02] MEDS: LABETALOL HCL 100 MG TABLET (FP) PO SCH (07:00)
[2016-07-02 07:08] LABS: CALCIUM 8.7 mg/dL (8.5-10.1); CREATININE 1.5 mg/dL (0.7-1.3)
[2016-07-02] MEDS: CHLORHEXIDINE GLUCONATE 4% CLEANSER FOR DECOLONIZATION TP SCH ×2 (09:05→09:06)
[2016-07-02] MEDS ORDERED: PT OWN MED DRAWER 7, Y5N ONE (09:12)
[2016-07-02] MEDS: DULoxetine HCL 30 MG CAPSULE.DR (FP) PO SCH (09:16)
[2016-07-02] MEDS: LISINOPRIL 20 MG TABLET (FP) PO SCH (09:16)
[2016-07-02] MEDS: FUROSEMIDE 40 MG/4 ML INJECTABLE VIAL IVPUSH SCH ×2 (09:17→09:35)
[2016-07-02] MEDS: NICOTINE 7 MG/24 HOURS TOPICAL PATCH TD SCH (09:18)
[2016-07-02] MEDS: HYDROCHLOROTHIAZIDE 25 MG TABLET (FP) PO SCH (09:18)
[2016-07-02] MEDS: NIFEdipine E.R. 90 MG TABLET (FP) PO SCH (09:18)
[2016-07-02] MEDS: ASPIRIN 81 MG CHEWABLE TABLETS PO SCH (09:18)
[2016-07-02] MEDS: TAMSULOSIN HCL 0.4 MG CAP.ER.24H (FP) PO SCH (09:18)
--- NOTE | 2016-07-02 09:40 | PN ---
Progress Note, Physician Chief Complaint: no further chest pain - Current Medication List Current Medications: Active Medications Acetaminophen (Tylenol -) 650 mg PO Q6H PRN PRN Reason: FEVER OR PAIN Aspirin (Asa -) 81 mg PO DAILY [facility] Last Admin: 07/02/16 09:18 Dose: 81 mg Chlorhexidine Gluconate (Hibiclens For Decolonization -) 1 applic TP HS [facility] Last Admin: 07/02/16 09:06 Dose: Not Given Duloxetine HCl (Cymbalta -) 60 mg PO DAILY [facility] Last Admin: 07/02/16 09:16 Dose: 60 mg Furosemide (Lasix Injection -) 40 mg IVPUSH DAILY [facility] Last Admin: 07/02/16 09:35 Dose: 40 mg Heparin Sodium (Porcine) (Heparin -) 5,000 unit SQ TID [facility] Hydrochlorothiazide (Hctz -) 25 mg PO DAILY [facility] Last Admin: 07/02/16 09:18 Dose: 25 mg Insulin Aspart (Novolog Vial Sliding Scale -) 1 vial SQ ACHS [facility] PRN Reason: Protocol Last Admin: 07/02/16 07:00 Dose: Not Given Labetalol HCl (Normodyne -) 100 mg PO TID [facility] Last Admin: 07/02/16 07:00 Dose: 100 mg Lisinopril (Prinivil) 40 mg PO DAILY [facility] Last Admin: 07/02/16 09:16 Dose: 40 mg Nicotine (Nicoderm Patch -) 7 mg TD DAILY [facility] Last Admin: 07/02/16 09:18 Dose: 7 mg Nifedipine (Procardia Xl -) 90 mg PO DAILY [facility] Last Admin: 07/02/16 09:18 Dose: 90 mg Nitroglycerin (Nitrostat -) 0.4 mg SL Q5M PRN PRN Reason: FOR CHEST PAIN Ondansetron HCl (Zofran Injection) 4 mg IVPB Q6H PRN PRN Reason: NAUSEA Tamsulosin HCl (Flomax -) 0.4 mg PO DAILY [facility] Last Admin: 07/02/16 09:18 Dose: 0.4 mg Zolpidem Tartrate (Ambien -) 10 mg PO HS PRN PRN Reason: INSOMNIA Last Admin: 07/01/16 21:34 Dose: 10 mg - Objective Vital Signs: Vital Signs Temperature 98.7 F 07/02/16 05:55 Pulse Rate 81 07/02/16 05:55 Respiratory Rate 21 07/02/16 05:55 Blood Pressure 119/77 07/02/16 05:55 O2 Sat by Pulse Oximetry (%) 98 07/01/16 23:26 Constitutional: Yes: No Distress Cardiovascular: Yes: Regular Rate and Rhythm Respiratory: Yes: CTA Bilaterally Gastrointestinal: Yes: Soft Edema: No Neurological: Yes: Alert, Oriented Labs: CBC, BMP 07/02/16 05:45 07/02/16 05:45 INR, PTT INR 1.12 (0.82-1.09) 06/29/16 12:53 Laboratory Tests 06/29/16 06/30/16 07/02/16 12:53 13:40 05:45 WBC 4.7 Hgb 11.4 L Plt Count 189 INR 1.12 Sodium BUN Creatinine Opiates Screen Negative Methadone Screen Negative Barbiturate Screen Negative Phencyclidine Screen Negative Ur Amphetamines Screen Negative MDMA (Ecstasy) Screen Negative Benzodiazepines Screen Negative Cocaine Screen Negative U Marijuana (THC) Screen Positive 07/02/16 05:45 WBC Hgb Plt Count INR Sodium 137 BUN 25 H D Creatinine 1.5 H Opiates Screen Methadone Screen Barbiturate Screen Phencyclidine Screen Ur Amphetamines Screen MDMA (Ecstasy) Screen Benzodiazepines Screen Cocaine Screen U Marijuana (THC) Screen Assessment/Plan Assessment/Plan 56 M well known to me from office with chronic HTN, Moderate MR, non-adherent w / medical therapy, mildly dilated aorta on echo (3.9cm) presents to ER with SOB , uncontrolled HTN and chest tightness found to be in CHF, likely acute on chronic diastolic CHF triggered by uncontrolled HTN, CTA negative for dissection. + TnI likely due to acute on chronic diastolic CHF/moderate MR triggered by uncontrolled HTN. However, patient also described chest pain and tightness, which have now resolved. REC: 1. BP much improved, continue current Rx- emphasized the importance of adherence with meds as outpatient. He said he will now purchase a pill box to keep his medications organized. 2. Given + TnI and initial chest pain, a definitive coronary assessment is prudent. Several risk factors (HTN, smoker, ascending aortic aneurysm). Have recommended cath, risks and benefits reviewed. Patient has agreed to transfer and will be transferred when bed available to [facility]- Dr. Jose Zayas accepting. Transfer planned for today.
--- NOTE | 2016-07-02 09:56 | PN ---
Physical Exam: SUBJECTIVE: Patient seen and examined. He was awake and alert and states that he feels well. He denies chest pain or shortness of breath. He states that he was non compliant with his cardiac medications secondary to depression but did not elaborate on the depression when asked. He states he sees a psychiatrist as an outpatient an will follow up with is psychiatrist. He state that he will comply with his medication because he does not want to be re-hospitalized. He has agreed to purchase a pill box so that he does not miss any more doses. OBJECTIVE: Vital Signs Period Temp Pulse Resp BP Sys/Rosado Pulse Ox Last 24 Hr 98.3 F-98.7 F 73-81 20-21 114-122/77-88 98-98 GENERAL: The patient is awake, alert, and fully oriented, in no acute distress. HEAD: Normal with no signs of trauma. EYES: PERRL, extraocular movements intact, sclera anicteric, conjunctiva clear ENT: Ears normal, nares patent, oropharynx clear without exudates, moist mucous membranes. NECK: Trachea midline, full range of motion, supple. LUNGS: Breath sounds equal, right lung diminished but clear/left lung clear HEART: Regular rate and rhythm ABDOMEN: Soft, nontender, nondistended, normoactive bowel sounds, denies pain EXTREMITIES: 2+ pulses, warm, well-perfused, no edema. NEUROLOGICAL: Normal speech, gait not observed. PSYCH: Normal mood, normal affect. SKIN: Warm, dry, normal turgor, no rashes or lesions noted Laboratory Results - last 24 hr 07/02/16 07/02/16 05:45 05:45 WBC 4.7 RBC 4.31 Hgb 11.4 L Hct 35.9 MCV 83.2 MCHC 31.8 L RDW 14.4 Plt Count 189 MPV 7.4 L Neutrophils % 45.9 Lymphocytes % 32.8 Monocytes % 17.9 H Eosinophils % 2.3 Basophils % 1.1 Sodium 137 Potassium 3.5 Chloride 99 Carbon Dioxide 29 Anion Gap 9 BUN 25 H D Creatinine 1.5 H Random Glucose 90 Calcium 8.7 Active Medications Generic Name Dose Route Start Last Admin Trade Name Freq PRN Reason Stop Dose Admin Acetaminophen 650 mg 06/30/16 16:36 Tylenol - PO Q6H PRN FEVER OR PAIN Aspirin 81 mg 06/30/16 16:00 07/02/16 09:18 Asa - PO 81 mg DAILY [facility] Administration Chlorhexidine Gluconate 1 applic 06/30/16 22:00 07/02/16 09:06 Hibiclens For Decolonization - TP Not Given HS [facility] Duloxetine HCl 60 mg 07/01/16 10:00 07/02/16 09:16 Cymbalta - PO 60 mg DAILY [facility] Administration Furosemide 40 mg 07/01/16 10:00 07/02/16 09:35 Lasix Injection - IVPUSH 40 mg DAILY [facility] Administration Heparin Sodium (Porcine) 5,000 unit 07/02/16 14:00 Heparin - SQ TID [facility] Hydrochlorothiazide 25 mg 07/01/16 10:00 07/02/16 09:18 Hctz - PO 25 mg DAILY [facility] Administration Insulin Aspart 1 vial 06/30/16 22:00 07/02/16 07:00 Novolog Vial Sliding Scale - SQ Not Given ACHS [facility] Protocol Labetalol HCl 100 mg 06/30/16 22:00 07/02/16 07:00 Normodyne - PO 100 mg TID [facility] Administration Lisinopril 40 mg 07/01/16 10:00 07/02/16 09:16 Prinivil PO 40 mg DAILY [facility] Administration Nicotine 7 mg 07/01/16 10:00 07/02/16 09:18 Nicoderm Patch - TD 7 mg DAILY [facility] Administration Nifedipine 90 mg 07/01/16 10:00 07/02/16 09:18 Procardia Xl - PO 90 mg DAILY [facility] Administration Nitroglycerin 0.4 mg 06/30/16 16:36 Nitrostat - SL Q5M PRN FOR CHEST PAIN Ondansetron HCl 4 mg 06/30/16 16:36 Zofran Injection IVPB Q6H PRN NAUSEA Tamsulosin HCl 0.4 mg 07/01/16 10:00 07/02/16 09:18 Flomax - PO 0.4 mg DAILY [facility] Administration Zolpidem Tartrate 10 mg 06/30/16 16:36 07/01/16 21:34 Ambien - PO 10 mg HS PRN Administration INSOMNIA ASSESSMENT/PLAN: Mr. Lopez is a 56 year old male with a past medical history of hypertension, cardiac cath at [facility] 1 1/2 year ago, depression, CHF, asthma, diabetes mellitus, kidney stones, active smoker, and ascending aortic aneurysm. He presented to the ED on 06/29/2016 with hypertensive urgency, chest Pain, congestive Heart failure and abdominal pain. While in the ED, he developed progressive dyspnea and was hypertensive ( documented BP in the ED 195/155). He was placed on a Labetalol drip and transferred to the ICU. On 06/30/2016 Labetalol drip was d/cd and he was transferred to Step down telemonitoring. Cardiology: Hypertensive Urgency - resolved Assessment/Plan: He is s/p ICU admit with Labetalol drip after his BP in ED was 195/155. BP now controlled on Lisinopril 40mg daily, Labetalol 100mg TID, HCTZ 25mg PO daily Enforced importance of taking cardiac medications as prescribed Continue to monitor BPs. Echo 06/30/2016: LV moderate dilated, LA mod dilated, RA mod dilated, mod MR, prolapse of anterior mitral leaflet, mild tricuspid regurg, mild aortic root dilation. Chest Pain - resolved Assessment/Plan: Elevated troponins: 0.29 > 0.24 > 0.20, likely from demand ischemia. On ASA 81mg daily. Denies chest pain or shortness of breath today - tolerating room air EK06/30/2016 NSR with sinus arrythmia, possible left atrial enlargement - left vent hypertrophy, t wave abnormality, consider infer. lat. ischemia, prolonged QT, abnormal EKG when compared to EKG of 06/29/2016 Cardiology following Acute on chronic diastolic heart failure Assessment/Plan: On Lasix 40mg daily Monitor BUN/Creatinine GI: Abdominal Pain - resolved Assessment/Plan: Pt denies abdominal pain. No tenderness on exam. Tolerating diet. Endocrine: Diabetes Mellitus - chronic Assessment/Plan: On Novolog sliding scale, BGMs monitored and are within normal limits Psych: Depression - chronic Assessment/Plan: Patient states his depression had been the cause of non compliance with his cardiac medications. He sees a psychiatrist as an outpatient and states that he spoke to his psychiatrist yesterday over the phone. He is currently on Cymbalta 60mg PO daily Nicotine Dependence - chronic Assessment/Plan: Pt is aware of the risks of smoking and heart failure, needs further counseling. On a Nicotine patch. Marijuana + screen on UTOX F.E.N. Fluids: Tolerating PO, No IVF secondary to CHF Electrolytes: BUN/Creat elevated, monitor while on diuretics. Nutrition: Low sodium diet, diabetic Prophylaxis: DVT: Lovenox stopped secondary to elevated creatinine, heparin TID initiated GI: hold off for now as pt is being transferred to [facility] Disposition: Discharge to [facility] for cardiac cath. Accepting physician is Dr. Jose Zayas. Visit type - Emergency Visit Emergency Visit: Yes ED Registration Date: 06/29/16 Care time: The patient presented to the Emergency Department on the above date and was hospitalized for further evaluation of their emergent condition. - New Patient This patient is new to me today: Yes Date on this admission: 07/02/16 - Critical Care Critical Care patient: No - Discharge Referral Referred to [facility] Med P.C.: No
[2016-07-02 12:15] VITALS: BP 117/60; PULSE 78; TEMP 97.8
[2016-07-02] MEDS ORDERED: HEPARIN NA (PORCINE) 5,000 UNITS/ML 1ML VIAL SQ SCH (14:00)
== END 2016-07-02 11:27 | disposition short-term general hospital (02) | DRG 194 ==
LOC: JER 11:56 → JERBED 15:44 → JICU 17:25 → J6S 06-30 16:57
PROVIDERS: ADMIT Internal Medicine; ATTEND Nurse Practitioner Family
DX: I11.0 Hypertensive heart disease with heart failure (principal); J45.909 Unspecified asthma, uncomplicated; E11.9 Type 2 diabetes mellitus without complications; I71.9 Aortic aneurysm of unspecified site, without rupture; N20.0 Calculus of kidney; N40.0 Benign prostatic hyperplasia without lower urinary tract symptoms; I16.0 Hypertensive urgency; I50.9 Heart failure, unspecified; F17.200 Nicotine dependence, unspecified, uncomplicated; I50.33 Acute on chronic diastolic (congestive) heart failure; R10.9 Unspecified abdominal pain; F12.10 Cannabis abuse, uncomplicated; Z91.14 Patient's other noncompliance with medication regimen
CPT/HCPCS: 36415; 71010-TC; 71275-TC; 74175-TC; 80048; 80053; 80307; 81003; 82550; 82553; 83036; 83735; 83880; 84443; 84484; 85025; 85610; 86850; 86900; 86901; 87086; 93005; 93010; 93306-TC; 94660; 99285-25

== ENCOUNTER 2017-01-16 08:57 | Inpatient (IN) | payer OTHER ==
[2017-01-16 09:07] VITALS: BMI 25.5
[2017-01-16] MEDS ORDERED: LABETALOL HCL 5 MG/1 ML (100MG/20 ML VIAL) IVPUSH ONE (09:08)
[2017-01-16] MEDS ORDERED: ROCURONIUM BROMIDE 50 MG/5 ML VIAL IVPUSH ONE (09:08)
[2017-01-16] MEDS ORDERED: SUCCINYLCHOLINE CHLORIDE 200 MG/10 ML VIAL IVPUSH ONE (09:09)
[2017-01-16] MEDS ORDERED: morphine CARPU-JECT 10 MG/1 ML DISP.SYRIN ONE (09:09)
[2017-01-16] MEDS ORDERED: RAPID SEQUENCE INTUBATION KIT NR ONE (09:09)
[2017-01-16] MEDS ORDERED: ETOMIDATE 40 MG/20 ML VIAL IVPUSH ONE ×2 (09:09→09:10)
[2017-01-16] MEDS ORDERED: morphine CARPU-JECT 4 MG/1 ML DISP.SYRIN IVPUSH ONE (09:10)
[2017-01-16] MEDS ORDERED: ROCURONIUM BROMIDE 100 MG/10 ML VIAL IV ONE (09:11)
[2017-01-16 09:15] LABS: BASOPHIL 1.3 % (0-2.0); EOSINOPHIL 5.8 % (0-4.5); MCH 26.3 pg (25.7-33.7); MCHC 31.3 g/dl (32.0-35.9); MEAN CELL VOLUME 84.1 fl (80-96); MEAN PLT VOLUME 7.2 fl (7.5-11.1); NEUTROPHILS 59.3 % (42.8-82.8); PLATELET COUNT 171 K/MM3 (134-434); RDW 15.7 % (11.9-15.9); WHITE BLOOD COUNT 4.5 K/mm3 (4.0-10.0)
[2017-01-16] MEDS ORDERED: PROPOFOL 100 ML ONE ×3 (09:21→15:54)
[2017-01-16] MEDS ORDERED: LABETALOL HCL 5 MG/1 ML (200MG/40ML VIAL) IVPB ONE (09:29)
[2017-01-16] MEDS ORDERED: LABETALOL HCL INJECTION 1,000 MG in SODIUM CHLORIDE 800 ML IV SCH (09:30)
--- NOTE | 2017-01-16 09:34 | PDOC ---
History of Present Illness <Jeremias Fournier - Last Filed: 01/16/17 09:46> - General History Source: EMS, Family - History of Present Illness Timing/Duration: reports: this morning Severity: reports: severe Associated Symptoms: reports: chest pain/soreness, shortness of breath <Alysha Haynes - Last Filed: 01/16/17 13:07> - General Chief Complaint: Respiratory Distress Stated Complaint: S.O.B. Time Seen by Provider: 01/16/17 09:07 Past History <Jeremias Fournier - Last Filed: 01/16/17 09:46> - Past Medical History Anemia: No Asthma: No Cancer: No Cardiac Disorders: Yes (A.FIB. AORTIC ANEURYSM.) CVA: No COPD: No CHF: No Dementia: No Diabetes: Yes GI Disorders: No Disorders: Yes (BPH) HTN: Yes Hypercholesterolemia: No Kidney Stones: Yes Liver Disease: No Seizures: No Thyroid Disease: No Other medical history: BACK PROBLEMS. - Surgical History Abdominal Surgery: No Appendectomy: No Cardiac Surgery: No Cholecystectomy: No GI Surgery: (KIDNEY SX) Lung Surgery: No Neurologic Surgery: No Orthopedic Surgery: No - Psycho/Social/Smoking Cessation Hx Anxiety: No Suicidal Ideation: No Smoking Status: Yes Smoking History: Current every day smoker Number of Cigarettes Smoked Daily: 10 Information on smoking cessation initiated: No 'Breaking Loose' booklet given: 06/29/16 Hx Alcohol Use: No Drug/Substance Use Hx: No Substance Use Type: None Hx Substance Use Treatment: No <Alysha Haynes - Last Filed: 01/16/17 13:07> - Past Medical History Allergies/Adverse Reactions: Allergies Allergy/AdvReac Type Severity Reaction Status Date / Time adhesive tape Allergy Verified 01/16/17 08:58 No Known Drug Allergies Allergy Verified 01/16/17 09:07 Home Medications: Ambulatory Orders Hydrochlorothiazide [Hctz] 25 mg PO DAILY 11/09/11 Lisinopril [Zestril] 40 mg PO DAILY 11/09/11 Tamsulosin HCl 0.4 mg PO DAILY 11/09/11 Duloxetine HCl [Cymbalta -] 60 mg PO DAILY 06/29/16 Furosemide 20 mg PO DAILY 06/29/16 Labetalol HCl 100 mg PO TID 06/29/16 Nifedipine ER [Procardia Xl -] 90 mg PO DAILY 06/29/16 Zolpidem Tartrate [Ambien] 10 mg PO HS 06/29/16 Review of Systems - Review of Systems Able to Perform ROS?: No (given condition) <IvyAlysha - Last Filed: 01/16/17 13:07> *Physical Exam - Vital Signs Last Vital Signs Temp Pulse Resp BP Pulse Ox 139 H 14 180/134 96 01/16/17 09:30 01/16/17 09:30 01/16/17 08:59 01/16/17 09:30 <Jeremias Fournier - Last Filed: 01/16/17 09:46> - Vital Signs Last Vital Signs Temp Pulse Resp BP Pulse Ox 90 24 180/134 99 01/16/17 08:59 01/16/17 08:59 01/16/17 08:59 01/16/17 08:59 - Physical Exam Comments: 01/16/17 09:35 Labored breathing on NRB Respiratory/Chest: positive: Normal Breath Sounds, Respiratory Distress. negative: Crackles, Rales, Wheezing Cardiovascular: positive: S1, S2, Tachycardia Gastrointestinal/Abdominal: positive: Soft Extremity: positive: Normal Inspection Integumentary: positive: Dry, Warm <IvyAlysha - Last Filed: 01/16/17 13:07> Procedures - Consent Consent obtained: From Patient - Intubation Intubation Method: orotracheal Blade used: Glidescope Tube Size (Fr): 7.5 Medications: Etomidate (and propofol), Morphine, Rocuronium, Succinylcholine Tube position @ lip (cm): 23 Tube position confirmed by: CO2 detector Breath Sounds after Intubation: equal Intubation Complications: no complications Post Intubation Xray: Yes <Jeremias Fournier - Last Filed: 01/16/17 09:46> Heart Score/ECG Review - ECG Intrepretation Comment:: 01/16/17 10:33 Twelve-lead EKG was performed and reviewed by me. There is normal sinus rhythm with a normal rate. The axis is normal. The intervals are normal. There are no ST or T wave abnormalities. Impression: Normal twelve-lead EKG <Alysha Haynes - Last Filed: 01/16/17 13:07> ED Treatment Course - LABORATORY CBC & Chemistry Diagram: 01/16/17 09:10 01/16/17 09:10 - ADDITIONAL ORDERS Additional order review: Laboratory Results 01/16/17 01/16/17 09:10 09:10 Sodium 142 Potassium 3.7 Chloride 109 H D Carbon Dioxide 26 Anion Gap 7 L BUN 20 H Creatinine 1.6 H Creat Clearance w eGFR 44.78 Random Glucose 137 H D Calcium 7.9 L Total Bilirubin 0.5 D AST 109 H D ALT 72 D Alkaline Phosphatase 127 H D Creatine Kinase 161 Troponin I 0.21 H B-Natriuretic Peptide 2229.24 H Total Protein 7.2 Albumin 3.4 01/16/17 09:10 RBC 3.74 L MCV 84.1 MCHC 31.3 L RDW 15.7 MPV 7.2 L Neutrophils % 59.3 D Lymphocytes % 24.7 D Monocytes % 8.9 Eosinophils % 5.8 H D Basophils % 1.3 - Medications Given in the ED: ED Medications Discontinued Medications Generic Name Dose Route Start Last Admin Trade Name Freq PRN Reason Stop Dose Admin Etomidate 10 mg 01/16/17 09:09 01/16/17 09:44 Amidate - IVPUSH 01/16/17 09:10 Not Given NOW ONE Etomidate 20 mg 01/16/17 09:10 01/16/17 09:28 Amidate - IVPUSH 01/16/17 09:11 20 mg NOW ONE Administration Labetalol HCl 5 mg 01/16/17 09:08 01/16/17 09:34 Normodyne Injection - IVPUSH 01/16/17 09:09 5 mg ONCE ONE Administration Morphine Sulfate 10 mg 01/16/17 09:10 01/16/17 09:28 Morphine Injection - IVPUSH 01/16/17 09:11 10 mg ONCE ONE Administration Rocuronium [place] 10 mg 01/16/17 09:08 01/16/17 09:44 Zemuron - IVPUSH 01/16/17 09:09 Not Given ONCE ONE Rocuronium [place] 60 mg 01/16/17 09:11 01/16/17 09:28 Zemuron - IV 01/16/17 09:12 60 mg ONCE ONE Administration Succinylcholine Chloride 120 mg 01/16/17 09:09 01/16/17 09:28 Quelicin - IVPUSH 01/16/17 09:10 120 mg ONCE ONE Administration <Jeremias Fournier - Last Filed: 01/16/17 09:46> - LABORATORY CBC & Chemistry Diagram: 01/16/17 09:10 01/16/17 09:10 <Alysha Haynes - Last Filed: 01/16/17 13:07> Medical Decision Making - Medical Decision Making 01/16/17 09:25 56-year-old male, smoker, poorly controlled hypertension w/ ? compliance issue, moderate MR, mildly dilated aorta on echo, though recent CT negative for thoracic or abdominal aneurysm, non-obs CAD on prior caths per record, status post recent admission for acute on chronic CHF with hypertensive emergency, BIB EMS and family for sudden onset shortness of breath with chest pain and diaphoresis this am. Pt significantly hypertensive to 200s /100s enroute w/ ? rapid afib enroute. Currently satting high 90s on oxygen. Pt unable to give hx at this time See exam SOB this am Hypertensive and diaphoretic, sating 100% on NRB but visually labored ?ACS vs hypertensive emergency vs CHF exacerbation, unlikely dissection (? h/o thoracic aneurysm though recent CT neg for aneurysm/dissection) -RSI given labored breathing in ED -manage BP -ekg -cxr -labs -admit to ICU 01/16/17 10:34 01/16/17 11:03 BNP >2K w/ trop of 0.2 w/ unremarkable ekg. Currently on labetalol drip w/ improving BP. IV lasix in progress. Case d/w Dr Mills of cards who agrees that tropenemia m/l represent demand ischemia. Recommends trending it and will continue to follow pt 01/16/17 12:00 BP now 132/99. BB drip discontinued. 01/16/17 12:10 01/16/17 12:15 Pt now out of the ED <Alysha Haynes - Last Filed: 01/16/17 13:07> *DC/Admit/Observation/Transfer <Jeremias Fournier - Last Filed: 01/16/17 09:46> - Discharge Dispostion Admit: Yes <Alysha Haynes - Last Filed: 01/16/17 13:07> Diagnosis at time of Disposition: Hypertensive emergency - Discharge Dispostion Condition at time of disposition: Fair - Referrals
[2017-01-16 09:39] LABS: ALBUMIN 3.4 g/dl (3.4-5.0); ANION GAP 7 (8-16); BILIRUBIN,TOTAL 0.5 mg/dL (0.2-1.0); CALCIUM 7.9 mg/dL (8.5-10.1); CO2 26 mmol/L (21-32); CREATININE 1.6 mg/dL (0.7-1.3); GLUCOSE,RANDOM 137 mg/dL (74-106); SGOT/AST 109 U/L (15-37); SGPT/ALT 72 U/L (12-78); TOT PROT 7.2 g/dl (6.4-8.2)
[2017-01-16 09:41] LABS: ALK PHOS 127 U/L (45-117); CPK 161 IU/L (39-308); TROPONIN I 0.21 ng/ml (0.00-0.05)
[2017-01-16 10:35] LABS: URINE APPEARANCE CLEAR; URINE BILIRUBIN NEGATIVE (NEGATIVE); URINE BLOOD 1+ (NEGATIVE); URINE COLOR STRAW; URINE GLUCOSE (UA) 1+ (NEGATIVE); URINE KETONE NEGATIVE (NEGATIVE); URINE LEUK ESTERASE NEGATIVE (NEGATIVE); URINE NITRITE NEGATIVE (NEGATIVE); URINE UROBILINOGEN NEGATIVE mg/dL (0.2-1.0)
[2017-01-16 10:37] LABS: URINE PROTEIN 2+ (NEGATIVE)
[2017-01-16 10:38] LABS: URINE HYALINE CAST 1 /lpf; URINE MUCUS RARE; URINE RBC 1 /hpf (0-3); URINE WBC 1 /hpf (3-5)
[2017-01-16] MEDS ORDERED: FUROSEMIDE 40 MG/4 ML INJECTABLE VIAL IVPUSH ONE (10:48)
--- NOTE | 2017-01-16 10:53 | HP ---
CHIEF COMPLAINT: shortness of breath at home, diaphoretic, hypertensive emergency PCP: Dr. Price HISTORY OF PRESENT ILLNESS: Patient is a 56 year old male who is a current everyday smoker of 1/2 pack per day. He was intubated and sedated in the ER. History provided by Doron who is at the bedside. Patient has a significant past medical history of hypertension with non compliance with medications a per . states patient is depressed over loss of job and often does not take his medications as prescribed. Other history includes moderate MR, mildly dilated aorta (recent CT negative for thoracic aortic aneurysm), CAD and kidney stones. As per ED notes, patient was significantly hypertensive en route to hospital and remains that way in the ED with last BP noted to be 251/163. He is on a Labetalol drip. He was intubated for airway protection and a Propofol drip was started. ER course was notable for: (1) 96.3F rectal with diaphoresis, hollis hugger placed, bgm 223 (2) labored breathing on Ed presentation, intubated for respiratory failure, started on Labetolol drip, Propofol for sedation (3) LABS: hmg/hct 9.8/31.5, TROP 0.21, BNP 2229.24, bun/creat: 20/1.6 (4) Chest xray shows large heart with congestive changes with superimposed possible infiltrate (5) Rubio placed in ED (6) EKG shows NSR, but unable to exclude PE, BP elevated, will order VQ scan, Will not start on heparin drip secondary to severe HTN (7) Rubio placed in Ed, shows clear yellow urine Recent Travel: none PAST MEDICAL HISTORY: PAST SURGICAL HISTORY: Social History: Smokin/2 pack per day Alcohol: 1-2 beers a few times per week Drugs: marijuana occasionally Family History: Allergies adhesive tape Allergy (Verified 01/16/17 08:58) No Known Drug Allergies Allergy (Verified 01/16/17 09:07) HOME MEDICATIONS: Home Medications Medication Instructions Recorded Hydrochlorothiazide [Hctz] 25 mg PO DAILY 11/09/11 Lisinopril [Zestril] 40 mg PO DAILY 11/09/11 Tamsulosin HCl 0.4 mg PO DAILY 11/09/11 Duloxetine HCl [Cymbalta -] 60 mg PO DAILY 06/29/16 Furosemide 20 mg PO DAILY 06/29/16 Labetalol HCl 100 mg PO TID 06/29/16 Nifedipine ER [Procardia Xl -] 90 mg PO DAILY 06/29/16 Zolpidem Tartrate [Ambien] 10 mg PO HS 06/29/16 REVIEW OF SYSTEMS CONSTITUTIONAL: Absent: fever, chills, generalized weakness, malaise, loss of appetite, weight change HEENT: Absent: rhinorrhea, nasal congestion, throat pain, throat swelling, difficulty swallowing, mouth swelling, ear pain, eye pain, visual changes CARDIOVASCULAR: Absent: lightheadedness, peripheral edema GASTROINTESTINAL: Absent: abdominal pain, abdominal distension, nausea, vomiting, diarrhea, constipation, melena, hematochezia GENITOURINARY: Absent: dysuria, frequency, urgency, hesitancy, hematuria, flank pain, genital pain MUSCULOSKELETAL: Absent: myalgia, arthralgia, joint swelling, back pain, neck pain SKIN: Absent: rash, itching, pallor HEMATOLOGIC/IMMUNOLOGIC: Absent: easy bleeding, easy bruising, lymphadenopathy, frequent infections ENDOCRINE: Absent: unexplained weight gain, unexplained weight loss, heat intolerance, cold intolerance NEUROLOGIC: Absent: Unable to assess, pt is intubated, sedated PSYCHIATRIC: Absent: unable to assess, pt is intubated, sedated PHYSICAL EXAMINATION Vital Signs - 24 hr 01/16/17 10:37 Blood Pressure 251/163 GENERAL: intubated, sedated HEAD: Normal with no signs of trauma. EARS, NOSE, THROAT: Ears normal, nares patent, oropharynx clear without exudates. NECK: Normal range of motion, supple without lymphadenopathy, JVD, or masses. LUNGS: Diminished breath sounds, intubated, sedated HEART: Regular rate and rhythm, normal S1 and S2 ABDOMEN: Soft, nontender, not distended, normoactive bowel sounds, no guarding, no rebound, no masses. No hepatomegaly or splenomegaly. MUSCULOSKELETAL: Normal range of motion at all joints. No bony deformities or tenderness. No CVA tenderness. UPPER EXTREMITIES: No peripheral edema. LOWER EXTREMITIES: No peripheral edema. NEUROLOGICAL: Unable to assess, pt is intubated, sedated PSYCHIATRIC: Unable to assess, pt is intubated, sedated SKIN: Warm, dry, normal turgor, no rashes or lesions noted, normal capillary refill. ASSESSMENT/PLAN: Patient is a 56 year old male who is a current everyday smoker of 1/2 pack per day. He was intubated and sedated in the ER. History provided by Doron who is at the bedside. Patient has a significant past medical history of hypertension with non compliance with medications a per . states patient is depressed over loss of job and often does not take his medications as prescribed. Other history includes moderate MR, mildly dilated aorta (recent CT negative for thoracic aortic aneurysm), CAD and kidney stones. As per ED notes, patient was significantly hypertensive en route to hospital and remains that way in the ED with last BP noted to be 251/163. He is on a Labetalol drip. He was intubated for airway protection and a Propofol drip was started. As per ED notes, patient had questionable afib?, NSR on EKG. EKG shows NSR, but unable to exclude PE, BP elevated, will order VQ scan, Will not start on heparin drip secondary to severe HTN. Imaging: Echo 06/30/2016: LV moderate dilated, LA mod dilated, RA mod dilated, mod MR, prolapse of anterior mitral leaflet, mild tricuspid regurg, mild aortic root dilation. Cardiology: Rule out ACS vs. CHF exacerbation A/P: Intubated, sedated in ER, awaiting ICU placement Troponin 0.21, trending same Cardiology consulted Hypertensive Emergency A/P: Likely secondary to non compliance Cardiac home meds currently on hold (Lasix 20mg daily, Lisinopril 40mg daily, Labetalol 100mg TID, HCTZ 25mg PO) On Labetalol drip Monitor BP Acute on chronic diastolic heart failure Assessment/Plan: On home Lasix 40mg daily Given Lasix 80mg IV in ED Monitor BUN/Creatinine Pulmonary: Shortness of breath/respiratory failure A/P: Rule out PE Heparin drip not started secondary to severe HTN VQ scan as per pulm. Will doppler Lower ext to rule out dvt Pulmonary consulted ID: Rule out sepsis - acute A/P: hypothermia in ED, lactic levels pending, +tachycardia, diaphoresis and respiratory failure Blood cultures ordered, urine cultures ordered, hollis hugger placed Lactic acid ordered, WBC within normal limits Monitor vitals q2 Renal: ESHA Elevated Creat. @1.6 Start on IVF of NS @75cc/hr GI: History of thoracic aortic aneurysm - recent CT negative for aneurysm/dissection Endocrine: Diabetes Mellitus - chronic Assessment/Plan: BGMs monitoring q6 Psych: Depression - chronic Assessment/Plan: Patient sees a psychiatrist as an outpatient On Cymbalta - currently on hold Nicotine Dependence - chronic Assessment/Plan: On a Nicotine patch. Current Marijuana use as per F.E.N. Fluids: Intubated, sedated, will start on IVF of 75cc/for ESHA Electrolytes: BUN/Creat elevated, monitor Nutrition: NPO Prophylaxis: DVT: Heparin TID GI: Protonix ivpb Visit type - Emergency Visit Emergency Visit: Yes ED Registration Date: 01/16/17 Care time: The patient presented to the Emergency Department on the above date and was hospitalized for further evaluation of their emergent condition. - New Patient This patient is new to me today: Yes Date on this admission: 01/17/17 - Critical Care Critical Care patient: Yes Total Critical Care Time (in minutes): 60 Critical Care Statement: The care of this patient involved high complexity decision making to prevent further life threatening deterioration of the patient 's condition and/or to evalute & treat vital organ system(s) failure or risk of failure.
[2017-01-16] MEDS ORDERED: FUROSEMIDE 40 MG/4 ML INJECTABLE VIAL ONE (11:27)
[2017-01-16] MEDS ORDERED: SODIUM CHLORIDE 1,000 ML IV SCH (12:15)
[2017-01-16] MEDS: PROPOFOL 100 ML IVPB SCH (12:30)
[2017-01-16 13:46] LABS: ARTERIAL BLD GAS O2 SATURATION 99.9 % (90-98.9); ARTERIAL BLOOD GAS BASE EXCESS 0.5 meq/l (-2-2); ARTERIAL BLOOD GAS HCO3 26.1 meq/L (22-26)
[2017-01-16 13:47] LABS: ALLENS TEST POSITIVE; ART PUNCT SITE RIGHT RADIAL; LPM/O2% 60%; MECH. VENT. ESPRIT; PT. ON O2? YES; TYPE OF O2 OT; VENT RATE 14; VT/PRESS 500
[2017-01-16 13:48] LABS: ARTERIAL BLOOD GAS pH 7.33 (7.35-7.45)
--- NOTE | 2017-01-16 13:50 | CONSULT ---
Consult Consult Specialty:: PULM/CCM Reason for Consultation:: heart failure, resp failure - History of Present Illness Chief Complaint: Shortness of breath History of Present Illness: Briefly Mr Lopez is a 56 y/o man with hx of poor compliance, HTN, CAD, MR, nephrolithiasis, and mildly dilated aorta who presented to ED with acute shortness of breath and chest pain, without reported syncope, sick prodrome, n/v /d, trauma, sick contacts, new medications. He was severely hypertensive 250/160 , tachycardic and severely short of breath. He was intubated on arrival in ED. Labs were notable for Trop.21, BNP 2200, Bun/Cr 20/1.6 (baseline ~1.2). CXR show pulm edema, no infiltrate, UA clean, WBC wnl. Pt started on labetolol gtt , sedated with propofol, given lasix and transferred to ICU. BP improved by time arrived in ICU. Labetolol gtt d/c, negative fluid balance, fent prn added for vent dyschynrony and comfort. Repeat labs pending. - History Source History Provided By: Medical Record Limitations to Obtaining History: Intubated - Past Medical History Cardio/Vascular: Yes: CAD, CHF (diastolic), HTN Renal/: Yes: Renal Calculi Psych: Yes: Depression - Alcohol/Substance Use Hx Alcohol Use: No - Smoking History Smoking history: Current every day smoker Aproximately how many cigarettes per day: 10 - Social History Usual Living Arrangement: With Spouse ADL: Independent Occupation: currently unemployed Home Medications - Allergies Allergies/Adverse Reactions: Allergies Allergy/AdvReac Type Severity Reaction Status Date / Time adhesive tape Allergy Verified 01/16/17 08:58 No Known Drug Allergies Allergy Verified 01/16/17 09:07 - Home Medications Home Medications: Ambulatory Orders Hydrochlorothiazide [Hctz] 25 mg PO DAILY 11/09/11 Lisinopril [Zestril] 40 mg PO DAILY 11/09/11 Tamsulosin HCl 0.4 mg PO DAILY 11/09/11 Duloxetine HCl [Cymbalta -] 60 mg PO DAILY 06/29/16 Furosemide 20 mg PO DAILY 06/29/16 Labetalol HCl 100 mg PO TID 06/29/16 Nifedipine ER [Procardia Xl -] 90 mg PO DAILY 06/29/16 Zolpidem Tartrate [Ambien] 10 mg PO HS 06/29/16 Review of Systems Unable to obtain ROS, reason: sedated, intubated Physical Exam Vital Signs: Vital Signs Temperature 95 F L 01/16/17 13:09 Pulse Rate 60 01/16/17 13:09 Respiratory Rate 14 01/16/17 13:09 Blood Pressure 105/84 01/16/17 13:09 O2 Sat by Pulse Oximetry (%) 100 01/16/17 13:09 Constitutional: Yes: Well Nourished, No Distress Eyes: Yes: Conjunctiva Clear, PERRL HENT: Yes: Atraumatic, Normocephalic Neck: Yes: Trachea Midline. No: Lymphadenopathy Cardiovascular: Yes: Regular Rate and Rhythm. No: Murmur Respiratory: Yes: Intubated, Mechanically Ventilated, Rales. No: Accessory Muscle Use, Wheezes Gastrointestinal: Yes: Normal Bowel Sounds, Soft. No: Splenomegaly ...Rectal Exam: Yes: Deferred Renal/: Yes: Rubio Present Breast(s): Yes: WNL Musculoskeletal: Yes: WNL Extremities: Yes: WNL, Cool Edema: Yes Edema: LLE: Trace, RLE: Trace Peripheral Pulses WNL: Yes Integumentary: Yes: WNL Neurological: Yes: Unresponsive (sedated) ...Motor Strength: WNL Labs: CBC, BMP 01/16/17 09:10 01/16/17 09:10 Troponin, BNP 01/16/17 01/16/17 09:10 09:10 Troponin I 0.21 H B-Natriuretic Peptide 2229.24 H Imaging - Results Chest X-ray: Report Reviewed, Image Reviewed (pulm edema, no infiltrate) EKG: Image Reviewed (ST, non specific ST changes, no ischemic changes, normal intervals) Problem List - Problems (1) Hypertensive emergency Code(s): I10 - ESSENTIAL (PRIMARY) HYPERTENSION (2) CHF (congestive heart failure) Code(s): I50.9 - HEART FAILURE, UNSPECIFIED Qualifiers: Congestive heart failure type: unspecified congestive heart failure type Congestive heart failure chronicity: unspecified congestive heart failure chronicity Qualified Code(s): I50.9 - Heart failure, unspecified (3) Acute coronary syndrome Code(s): I24.9 - ACUTE ISCHEMIC HEART DISEASE, UNSPECIFIED Assessment/Plan PULM/CCM Seen and examined in ICU A/ 56 y/o man with poorly controlled HTN, diastolic heart failure, CAD, renal stones now presenting with acute pulm edema in setting of hypertensive emergency requiring intubation/MV P/ Hypertensive Emergency -labetolol gtt currently off, low threshold to resume -negative fluid balance with diuresis -restart home meds in am if stabilized Acute hypoxemic respiratory failure -cont mechanical ventilation, wean settings as tolerated -diuresis -sedate for vent sychrony ACS:, low level trop leak in setting of demand from heart failure -serial trop -cardiology to see -asa, statin, consider hep gtt in rising Neuro: sedation -propofol gtt, wean to off if improved pulm edema/compliance -fent pushes prn Prophy: PPI, [facility] Solomon Recinos ACNP [id number]
[2017-01-16] MEDS: hydrALAZINE HCL 20 MG/ML VIAL IVPUSH PRN ×2 (13:55→22:22)
[2017-01-16] MEDS: HEPARIN NA (PORCINE) 5,000 UNITS/ML 1ML VIAL SQ SCH ×2 (14:03→21:20)
[2017-01-16 14:29] LABS: MAGNESIUM 2.3 mg/dL (1.8-2.4)
[2017-01-16 14:32] LABS: TROPONIN I 0.19 ng/ml (0.00-0.05)
[2017-01-16] MEDS ORDERED: ASPIRIN 325 MG ENTERIC COATED TABLET (FP) PO ONE (14:34)
[2017-01-16] MEDS: PANTOPRAZOLE SOD 40 MG SUSPENSION PACKET NGT SCH (15:13)
[2017-01-16] MEDS ORDERED: PROPOFOL 100 ML IVPB SCH (16:15)
--- NOTE | 2017-01-16 16:43 | EKG ---
Test Reason : Blood Pressure : / mmHG Vent. Rate : 090 BPM Atrial Rate : 090 BPM P-R Int : 176 ms QRS Dur : 090 ms QT Int : 418 ms P-R-T Axes : 047 039 104 degrees QTc Int : 511 ms POOR DATA QUALITY, INTERPRETATION MAY BE ADVERSELY AFFECTED SINS RHYTHM WITH ATRIAL ABNORMALITY NONSPECIFIC T WAVE ABNORMALITY ABNORMAL ECG WHEN COMPARED WITH ECG OF 30-JUN-2016 09:13, T WAVE INVERSION NO LONGER EVIDENT IN INFERO LATERAL LEADS CORRELARE CLINICALLY AND REPEAT TRACING INDICATED Confirmed by ALIYA MATHUR MD ([id number]) on 01/16/2017 4:43:41 PM Referred By: Confirmed By:ALIYA MATHUR MD
[2017-01-16] MEDS: MUPIROCIN 2% TOPICAL OINTMENT FOR DECOLONIZATION NS SCH (21:19)
[2017-01-16] MEDS: CHLORHEXIDINE GLUCONATE 4% CLEANSER FOR DECOLONIZATION TP SCH (21:20)
[2017-01-16] MEDS: FENTANYL INJECTION 500 MCG in DEXTROSE 5%-WATER - 90 ML IVPB SCH (23:05)
[2017-01-16] MEDS ORDERED: FUROSEMIDE 40 MG/4 ML INJECTABLE VIAL IVPB ONE (23:16)
--- NOTE | 2017-01-17 03:00 | CON.CARD ---
Consult Consult Specialty:: cardiology Reason for Consultation:: hypertensive emergency; CHF - History of Present Illness Chief Complaint: Pt is intubated and sedated. History of Present Illness: 56-year-old black man, with PMHx cigarette smoker, poorly controlled hypertension w/ ? compliance issue, moderate MR, mildly dilated aorta on echo, though recent CT negative for thoracic or abdominal aneurysm, non-obs CAD on prior caths per record, status post recent admission for acute on chronic CHF with hypertensive emergency, Pt is now brought in by EMS and family for sudden onset shortness of breath with chest pain and diaphoresis this am. Pt significantly hypertensive to 200s /100s enroute w/ ?rapid afib enroute. Currently satting high 90s on oxygen. Pt unable to give hx at this time - History Source History Provided By: Medical Record Limitations to Obtaining History: Other (pt intubated, sedated) - Past Medical History Cardio/Vascular: Yes: CAD, CHF (diastolic; moderately dilated LV), HTN Renal/: Yes: Renal Calculi Heme/Onc: Yes: Anemia Psych: Yes: Depression - Alcohol/Substance Use Hx Alcohol Use: No - Smoking History Smoking history: Current every day smoker Aproximately how many cigarettes per day: 10 - Social History Usual Living Arrangement: With Spouse ADL: Independent Occupation: currently unemployed Home Medications - Allergies Allergies/Adverse Reactions: Allergies Allergy/AdvReac Type Severity Reaction Status Date / Time adhesive tape Allergy Verified 01/16/17 08:58 No Known Drug Allergies Allergy Verified 01/16/17 09:07 - Home Medications Home Medications: Ambulatory Orders Hydrochlorothiazide [Hctz] 25 mg PO DAILY 11/09/11 Lisinopril [Zestril] 40 mg PO DAILY 11/09/11 Tamsulosin HCl 0.4 mg PO DAILY 11/09/11 Duloxetine HCl [Cymbalta -] 60 mg PO DAILY 06/29/16 Furosemide 20 mg PO DAILY 06/29/16 Labetalol HCl 100 mg PO TID 06/29/16 Nifedipine ER [Procardia Xl -] 90 mg PO DAILY 06/29/16 Zolpidem Tartrate [Ambien] 10 mg PO HS 06/29/16 Review of Systems Unable to obtain ROS, reason: intubated - Risk Factors Known Risk Factors: Yes: Age, Gender, Hypertension, Race, Smoking Vital Signs: Vital Signs Temperature 98.2 F 01/16/17 19:09 Pulse Rate 74 01/17/17 00:53 Respiratory Rate 11 L 01/17/17 00:53 Blood Pressure 119/88 01/17/17 00:53 O2 Sat by Pulse Oximetry (%) 100 01/16/17 21:32 Constitutional: Yes: Anxious Eyes: Yes: WNL HENT: Yes: Other Neck: Yes: Decreased ROM Respiratory: Yes: Diminished Gastrointestinal: Yes: Soft Cardiovascular: Yes: Regular Rate and Rhythm JVD: Yes Carotid Bruit: No PMI: Displaced Heart Sounds: Yes: S1, S2, S4 Murmur: Yes: Systolic Murmur, Grade 2 Musculoskeletal: Yes: WNL Extremities: Yes: Cool Edema: No Peripheral Pulses WNL: Yes Integumentary: Yes: WNL Neurological: Yes: Other (initially reported alert in ER; now intubated, sedated ) Psychiatric: Yes: Other (reported depression) - Other Data Labs, Other Data: Troponin, BNP 01/16/17 01/16/17 13:54 21:15 Troponin I 0.19 H 0.23 H Troponin, BNP 01/16/17 01/16/17 13:54 21:15 Troponin I 0.19 H 0.23 H Echo: Report Reviewed (06/2016: normal LVEF, moderately dilated LV) Imaging - Results Chest X-ray: Image Reviewed (enlarged heart; hilar fullness) Cat Scan: Image Reviewed (07/06: emphysema; bibasial pleural effusion; no PE) EKG: Image Reviewed (NSR; nonspecific T wave changes) Problem List - Problems (1) Acute coronary syndrome Assessment/Plan: TNI 0.19 (similar finding 06/2016); f/u TNI and CK serially.. Hx + stress MIBI 2011; hx ?coronary angiogram. F/u prior workup. ECHO for LVEF, regional wall motion and thickness, valves (hx MVP, moderate MR). Lipids TSH WNL 06/2016. Code(s): I24.9 - ACUTE ISCHEMIC HEART DISEASE, UNSPECIFIED (2) Hypertensive emergency Assessment/Plan: BP initially reported >200 systolic by EMS; now controlled with IV labetolol. Pt's home medications include lisinopril (which should be continued, given HFpEF on 06/2016: normal LVEF with moderately dilated LV, LA, RA; RV NL), HCTZ, Procardia. F/u repeat ECHO. Code(s): I10 - ESSENTIAL (PRIMARY) HYPERTENSION (3) Nephrolithiasis Code(s): N20.0 - CALCULUS OF KIDNEY (4) Renal insufficiency Assessment/Plan: f/u BUN/Cr, Is and Os. (Cr 1.3-->1.5 on 06/2016; now 1.6). Hx nephrolithiasis. Code(s): N28.9 - DISORDER OF KIDNEY AND URETER, UNSPECIFIED
[2017-01-17 06:06] LABS: BASOPHIL 0.5 % (0-2.0); EOSINOPHIL 1.7 % (0-4.5); MCH 26.2 pg (25.7-33.7); MCHC 31.6 g/dl (32.0-35.9); MEAN CELL VOLUME 83.2 fl (80-96); NEUTROPHILS 70.3 % (42.8-82.8); PLATELET COUNT 169 K/MM3 (134-434); RDW 15.7 % (11.9-15.9); WHITE BLOOD COUNT 6.4 K/mm3 (4.0-10.0)
[2017-01-17 06:29] LABS: ANION GAP 9 (8-16); CALCIUM 8.3 mg/dL (8.5-10.1); CO2 29 mmol/L (21-32); CREATININE 1.5 mg/dL (0.7-1.3); GLUCOSE,RANDOM 92 mg/dL (74-106); MAGNESIUM 2.2 mg/dL (1.8-2.4)
[2017-01-17 07:17] LABS: THYROID STIMULATING HORMONE 1.19 uIU/ml (0.358-3.74)
[2017-01-17] MEDS: HEPARIN NA (PORCINE) 5,000 UNITS/ML 1ML VIAL SQ SCH ×3 (07:34→22:33)
[2017-01-17] MEDS ORDERED: POTASSIUM CHLORIDE ORAL LIQUID 20 MEQ/15 ML PO ONE (07:40)
[2017-01-17] MEDS: PROPOFOL 100 ML IVPB SCH (08:30)
[2017-01-17] MEDS ORDERED: PT OWN MED DRAWER 7, Y5N ONE (08:47)
[2017-01-17] MEDS: FENTANYL INJECTION 500 MCG in DEXTROSE 5%-WATER - 90 ML IVPB SCH (09:08)
[2017-01-17] MEDS: PANTOPRAZOLE SOD 40 MG SUSPENSION PACKET NGT SCH (09:09)
--- NOTE | 2017-01-17 09:11 | PN ---
Progress Note, Physician History of Present Illness: 56-year-old black man, with PMHx cigarette smoker, poorly controlled hypertension w/ ? compliance issue, moderate MR, mildly dilated aorta on echo, though recent CT negative for thoracic or abdominal aneurysm, non-obs CAD on prior caths per record, status post recent admission for acute on chronic CHF with hypertensive emergency, Pt is now brought in by EMS and family for sudden onset shortness of breath with chest pain and diaphoresis this am. Pt significantly hypertensive to 200s /100s enroute w/ ?rapid afib enroute. Currently satting high 90s on oxygen. Pt unable to give hx at this time - Current Medication List Current Medications: Active Medications Chlorhexidine Gluconate (Hibiclens For Decolonization -) 1 applic TP HS [facility] Last Admin: 01/16/17 21:20 Dose: 1 applic Fentanyl (Sublimaze Injection -) 50 mcg IVPUSH Q1H PRN PRN Reason: AGITATION Stop: 01/17/17 12:44 Last Admin: 01/16/17 21:21 Dose: 50 mcg Heparin Sodium (Porcine) (Heparin -) 5,000 unit SQ TID HONEY Last Admin: 01/17/17 07:34 Dose: 5,000 unit Hydralazine HCl (Apresoline Injection -) 20 mg IVPUSH Q6H PRN PRN Reason: HYPERTENSION Last Admin: 01/16/17 22:22 Dose: 20 mg Propofol (Diprivan -) 100 mls @ 17.145 mls/hr IVPB TITR HONEY; 30 MCG/KG/MIN PRN Reason: Protocol Last Admin: 01/17/17 08:30 Dose: 28.575 mls/hr Fentanyl 500 mcg/ Dextrose 100 mls @ 10 mls/hr IVPB TITR HONEY PRN Reason: 50 MCG/HR Last Admin: 01/17/17 09:08 Dose: 20 mls/hr Mupirocin (Bactroban Ointment (For Decolonization) -) 1 applic NS BID [facility] Stop: 01/21/17 21:59 Last Admin: 01/16/17 21:19 Dose: 1 applic Pantoprazole Sodium (Protonix Packets For Oral Suspension -) 40 mg NGT DAILY [facility] Last Admin: 01/16/17 15:13 Dose: 40 mg - Objective Vital Signs: Vital Signs Temperature 98.0 F 01/17/17 06:17 Pulse Rate 68 01/17/17 08:00 Respiratory Rate 19 01/17/17 09:08 Blood Pressure 141/101 01/17/17 08:00 O2 Sat by Pulse Oximetry (%) 100 01/17/17 09:08 Eyes: Yes: WNL, Conjunctiva Clear, EOM Intact HENT: Yes: WNL, Atraumatic, Normocephalic Neck: Yes: WNL, Supple, Trachea Midline Cardiovascular: Yes: WNL, Regular Rate and Rhythm Respiratory: Yes: Intubated, Mechanically Ventilated Gastrointestinal: Yes: WNL, Normal Bowel Sounds Genitourinary: Yes: WNL Musculoskeletal: Yes: WNL Extremities: Yes: WNL Edema: No Integumentary: Yes: WNL Neurological: Yes: Unresponsive, Other (sedated) ...Motor Strength: WNL Psychiatric: Yes: WNL Labs: CBC, BMP 01/17/17 05:15 01/17/17 05:15 Assessment/Plan - Problems (1) Acute coronary syndrome Assessment/Plan: TNI 0.19 (similar finding 06/2016); f/u TNI and CK serially.. Hx + stress MIBI 2011; hx ?coronary angiogram. F/u prior workup. ECHO for LVEF, regional wall motion and thickness, valves (hx MVP, moderate MR). Lipids TSH WNL 06/2016. Code(s): I24.9 - ACUTE ISCHEMIC HEART DISEASE, UNSPECIFIED (2) Hypertensive emergency Assessment/Plan: BP initially reported >200 systolic by EMS; now 140/100 controlled with IV labetolol. Pt's home medications include lisinopril (which should be continued, given HFpEF on 06/2016: normal LVEF with moderately dilated LV, LA, RA; RV NL), HCTZ, Procardia. F/u repeat ECHO. Code(s): I10 - ESSENTIAL (PRIMARY) HYPERTENSION (3) Nephrolithiasis Code(s): N20.0 - CALCULUS OF KIDNEY (4) Renal insufficiency Assessment/Plan: f/u BUN/Cr, Is and Os. (Cr 1.3-->1.5 on 06/2016; now 1.6). Hx nephrolithiasis. Code(s): N28.9 - DISORDER OF KIDNEY AND URETER, UNSPECIFIED mikala Ramirez/Francescone will f/u patient starting 8-17 cc time 35 min
[2017-01-17] MEDS: MUPIROCIN 2% TOPICAL OINTMENT FOR DECOLONIZATION NS SCH ×2 (09:12→22:32)
--- NOTE | 2017-01-17 09:19 | PN ---
Physical Exam: SUBJECTIVE: Patient seen and examined in the ICU, remains intubated and sedated on Propofol and Fentanyl. Unable to participate in assessment secondary to same. 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 EARS, NOSE, THROAT: Ears normal, nares patent, oropharynx clear without exudates. NECK: Normal range of motion, supple without lymphadenopathy, JVD, or masses. LUNGS: Diminished breath sounds, intubated, sedated HEART: Regular rate and rhythm, normal S1 and S2 ABDOMEN: Soft, nontender, mildly distended, normoactive bowel sounds MUSCULOSKELETAL: Normal range of motion at all joints. No bony deformities or tenderness. No CVA tenderness. UPPER EXTREMITIES: No peripheral edema. LOWER EXTREMITIES: No peripheral edema. NEUROLOGICAL: Unable to assess, pt is intubated, sedated PSYCHIATRIC: Unable to assess, pt is intubated, sedated SKIN: Warm, dry, normal turgor, no rashes or lesions noted, normal capillary refill. Laboratory Results - last 24 hr 01/16/17 01/16/17 01/16/17 10:57 13:40 13:54 WBC RBC Hgb Hct MCV MCH MCHC RDW Plt Count MPV Neutrophils % Lymphocytes % Monocytes % Eosinophils % Basophils % Puncture Site Right radial ABG pH 7.33 L ABG pCO2 at Pt Temp 51.2 H ABG pO2 at Pt Temp 150.0 H ABG HCO3 26.1 H ABG O2 Sat (Measured) 99.9 H* ABG O2 Content 11.9 L ABG Base Excess 0.5 Jasvir Test Positive O2 Delivery Device Ot Oxygen Flow Rate 60% Vent Mode Ac Vent Rate 14 Mechanical Rate Esprit PEEP 8.0 Pressure Support Vent 500 Sodium Potassium Chloride Carbon Dioxide Anion Gap BUN Creatinine POC Glucometer 223.80766 Random Glucose Lactic Acid Calcium Magnesium Troponin I TSH Blood Type A POSITIVE Antibody Screen Negative 01/16/17 01/16/17 01/16/17 13:54 13:55 18:32 WBC RBC Hgb Hct MCV MCH MCHC RDW Plt Count MPV Neutrophils % Lymphocytes % Monocytes % Eosinophils % Basophils % Puncture Site ABG pH ABG pCO2 at Pt Temp ABG pO2 at Pt Temp ABG HCO3 ABG O2 Sat (Measured) ABG O2 Content ABG Base Excess Jasvir Test O2 Delivery Device Oxygen Flow Rate Vent Mode Vent Rate Mechanical Rate PEEP Pressure Support Vent Sodium Potassium Chloride Carbon Dioxide Anion Gap BUN Creatinine POC Glucometer 111.93354 Random Glucose Lactic Acid 0.7 Calcium Magnesium 2.3 D Troponin I 0.19 H TSH Blood Type Antibody Screen 01/16/17 01/17/17 01/17/17 21:15 04:50 05:15 WBC 6.4 D RBC 3.41 L Hgb 8.9 L Hct 28.4 L MCV 83.2 MCH 26.2 MCHC 31.6 L RDW 15.7 Plt Count 169 MPV 8.0 D Neutrophils % 70.3 Lymphocytes % 17.2 D Monocytes % 10.3 H Eosinophils % 1.7 Basophils % 0.5 Puncture Site ABG pH ABG pCO2 at Pt Temp ABG pO2 at Pt Temp ABG HCO3 ABG O2 Sat (Measured) ABG O2 Content ABG Base Excess Jasvir Test O2 Delivery Device Oxygen Flow Rate Vent Mode Vent Rate Mechanical Rate PEEP Pressure Support Vent Sodium Potassium Chloride Carbon Dioxide Anion Gap BUN Creatinine POC Glucometer 112.00291 Random Glucose Lactic Acid Calcium Magnesium Troponin I 0.23 H TSH Blood Type Antibody Screen 01/17/17 05:15 WBC RBC Hgb Hct MCV MCH MCHC RDW Plt Count MPV Neutrophils % Lymphocytes % Monocytes % Eosinophils % Basophils % Puncture Site ABG pH ABG pCO2 at Pt Temp ABG pO2 at Pt Temp ABG HCO3 ABG O2 Sat (Measured) ABG O2 Content ABG Base Excess Jasvir Test O2 Delivery Device Oxygen Flow Rate Vent Mode Vent Rate Mechanical Rate PEEP Pressure Support Vent Sodium 143 Potassium 3.5 Chloride 105 Carbon Dioxide 29 Anion Gap 9 BUN 22 H Creatinine 1.5 H POC Glucometer Random Glucose 92 D Lactic Acid Calcium 8.3 L Magnesium 2.2 Troponin I TSH 1.19 D Blood Type Antibody Screen Active Medications Generic Name Dose Route Start Last Admin Trade Name Freq PRN Reason Stop Dose Admin Chlorhexidine Gluconate 1 applic 01/16/17 22:00 01/16/17 21:20 Hibiclens For Decolonization - TP 1 applic HS HONEY Administration Fentanyl 50 mcg 01/16/17 12:35 01/16/17 21:21 Sublimaze Injection - IVPUSH 01/17/17 12:44 50 mcg Q1H PRN Administration AGITATION Heparin Sodium (Porcine) 5,000 unit 01/16/17 14:00 01/17/17 07:34 Heparin - SQ 5,000 unit TID HONEY Administration Hydralazine HCl 20 mg 01/16/17 13:59 01/16/17 22:22 Apresoline Injection - IVPUSH 20 mg Q6H PRN Administration HYPERTENSION Propofol 100 mls @ 17.145 mls/hr 01/16/17 12:30 01/17/17 08:30 Diprivan - IVPB 28.575 mls/hr TITR HONEY Administration Protocol 30 MCG/KG/MIN Fentanyl 500 mcg/ Dextrose 100 mls @ 10 mls/hr 01/16/17 23:00 01/17/17 09:08 IVPB 20 mls/hr TITR HONEY Administration 50 MCG/HR Mupirocin 1 applic 01/16/17 22:00 01/17/17 09:12 Bactroban Ointment (For Decolonization) - NS 01/21/17 21:59 1 applic BID HONEY Administration Pantoprazole Sodium 40 mg 01/16/17 14:45 01/17/17 09:09 Protonix Packets For Oral Suspension - NGT 40 mg DAILY HONEY Administration ASSESSMENT/PLAN: Patient is a 56 year old male who is a current everyday smoker of 1/2 pack per day. Patient has a significant past medical history of hypertension with non compliance with medications a per . states patient is depressed over loss of job and often does not take his medications as prescribed. Other history includes moderate MR, mildly dilated aorta (recent CT negative for thoracic aortic aneurysm), CAD and kidney stones. Patient was significantly hypertensive en route to hospital (200s/100s) with difficulty breathing. A NRB was placed without relief of symptoms. Patient was intubated and was started on a Labetalol drip. Labetolol drip was discontinued overnight once BP stabilized. As per ED notes, patient had questionable afib?. EKG shows NSR, but unable to exclude PE. A heparin drip was not started in ED secondary to severe hypertension. CTA angio not ordered for elevated creatinine. Pulmonary consulted for possible VQ scan. Imaging: Echo 06/30/2016: LV moderate dilated, LA mod dilated, RA mod dilated, mod MR, prolapse of anterior mitral leaflet, mild tricuspid regurg, mild aortic root dilation. Cardiology: Rule out ACS vs. CHF exacerbation A/P: Remains intubated, sedated in ICU Troponins 0.21>0.19>0.23 Cardiology consulted and following, notes reviewed Hypertensive Emergency A/P: Likely secondary to non compliance Cardiac home meds currently on hold (Lasix 20mg daily, Lisinopril 40mg daily, Labetalol 100mg TID, HCTZ 25mg PO) Labetalol drip d/cd overnight once BP stabilized and he was started on Hydralazine 20mg q6 for hypertension Resume home meds once pt is extubated Acute on chronic diastolic heart failure Assessment/Plan: On home Lasix 40mg daily Given Lasix 80mg IV in ED Monitor BUN/Creatinine Pulmonary: Shortness of breath/respiratory failure A/P: Rule out PE Heparin drip not started secondary to severe HTN VQ scan as per pulm. Doppler negative for DVT on bilateral LE Pulmonary consulted ID: Rule out sepsis - acute A/P: hypothermia in ED now resolved, lactic levels wnl, tachycardia now resolved , remains intubated for respiratory failure Blood cultures ordered, urine cultures ordered: both pending WBC within normal limits Monitor vitals as per ICU Renal: ESHA - Elevated Creat. @1.5 - creatinine 1.3 on 06/2016 Lasix 80mg given in ED, monitor bun/creat - will continue to trend GI: History of thoracic aortic aneurysm - recent CT negative for aneurysm/dissection Endocrine: Diabetes Mellitus - chronic Assessment/Plan: BGMs monitoring q6 Psych: Depression - chronic Assessment/Plan: Patient sees a psychiatrist as an outpatient On Cymbalta - currently on hold Nicotine Dependence - chronic Assessment/Plan: will start nicotine patch when pt awake Current Marijuana use as per F.E.N. Fluids: Intubated, sedated Electrolytes: monitor Nutrition: NPO Prophylaxis: DVT: Heparin TID GI: Protonix ivpb Visit type - Emergency Visit Emergency Visit: Yes ED Registration Date: 01/16/17 Care time: The patient presented to the Emergency Department on the above date and was hospitalized for further evaluation of their emergent condition. - New Patient This patient is new to me today: No - Critical Care Critical Care patient: Yes Total Critical Care Time (in minutes): 60 Critical Care Statement: The care of this patient involved high complexity decision making to prevent further life threatening deterioration of the patient 's condition and/or to evalute & treat vital organ system(s) failure or risk of failure.
[2017-01-17] MEDS ORDERED: LISINOPRIL 20 MG TABLET (FP) PO SCH (11:00)
[2017-01-17] MEDS ORDERED: HYDROCHLOROTHIAZIDE 25 MG TABLET (FP) PO SCH (11:00)
[2017-01-17] MEDS ORDERED: amLODIPine BESYLATE 10 MG TABLET (FP) PO ONE (11:03)
[2017-01-17] MEDS: hydrALAZINE HCL 20 MG/ML VIAL IVPUSH PRN (11:04)
[2017-01-17] MEDS: DULoxetine HCL 30 MG CAPSULE.DR (FP) PO SCH (12:37)
[2017-01-17] MEDS: NIFEdipine E.R. 90 MG TABLET (FP) PO SCH (12:38)
[2017-01-17] MEDS: LABETALOL HCL 100 MG TABLET (FP) PO SCH ×2 (14:54→22:33)
--- NOTE | 2017-01-17 14:59 | PN ---
Progress Note, Physician History of Present Illness: patient seen and examined at bedside this morning was intubated and sedated no events overnight ;patient remains hypertensive - Current Medication List Current Medications: Active Medications Chlorhexidine Gluconate (Hibiclens For Decolonization -) 1 applic TP HS [facility] Last Admin: 01/16/17 21:20 Dose: 1 applic Duloxetine HCl (Cymbalta -) 60 mg PO DAILY [facility] Last Admin: 01/17/17 12:37 Dose: 60 mg Heparin Sodium (Porcine) (Heparin -) 5,000 unit SQ TID [facility] Last Admin: 01/17/17 07:34 Dose: 5,000 unit Hydralazine HCl (Apresoline Injection -) 20 mg IVPUSH Q6H PRN PRN Reason: HYPERTENSION Last Admin: 01/17/17 11:04 Dose: 20 mg Hydrochlorothiazide (Hctz -) 25 mg PO DAILY [facility] Labetalol HCl (Normodyne -) 100 mg PO TID [facility] Lisinopril (Prinivil) 40 mg PO DAILY [facility] Mupirocin (Bactroban Ointment (For Decolonization) -) 1 applic NS BID [facility] Stop: 01/21/17 21:59 Last Admin: 01/17/17 09:12 Dose: 1 applic Nifedipine (Procardia Xl -) 90 mg PO DAILY [facility] Last Admin: 01/17/17 12:38 Dose: 90 mg Pantoprazole Sodium (Protonix Packets For Oral Suspension -) 40 mg NGT DAILY [facility] Last Admin: 01/17/17 09:09 Dose: 40 mg - Objective Vital Signs: Vital Signs Temperature 98.0 F 01/17/17 06:17 Pulse Rate 97 H 01/17/17 13:11 Respiratory Rate 18 01/17/17 13:11 Blood Pressure 175/113 01/17/17 13:11 O2 Sat by Pulse Oximetry (%) 98 01/17/17 10:50 Constitutional: Yes: Anxious (when sedation held), Other (intubated sedated) Eyes: Yes: Conjunctiva Clear HENT: Yes: Atraumatic, Normocephalic Neck: Yes: Supple, Trachea Midline Cardiovascular: Yes: Regular Rate and Rhythm Respiratory: Yes: Regular, CTA Bilaterally Gastrointestinal: Yes: Soft Genitourinary: Yes: Rubio Present Edema: No Neurological: Yes: Other (intubated and sedated good mental status off sedation ) Labs: CBC, BMP 01/17/17 05:15 01/17/17 05:15 Assessment/Plan 56F with uncontrolled hypertension non complicant on medications presented to the ED with hypertensive emergency and altered mental status. hypertensive emergency: BP improving still not well controlled will restart lisinopril HCTZ PO labetelol continue procardia- will increase dose to 90mg daily altered mental: possible hypertensive encephalopathy resolved CT head not done-not needed at this time will monitor mental ststua: acute respiratory failure: could have been flash pulmonary edema secondary to hypertensive emergency: Resolved CPAP trial hold sedation and extubate acute on chronic exacerbation of CHF: lasix currently on hold cardiology consult appreciated will jeanniee PRN f/u echo Acute kidney injury: creatinine 1.5 today slightly improved from yesterday may be new baseline will continue to trend history of thoracic aortic aneurysm: not active at this time recent CT did not show aneurysm just dilation outpatient follow up hyperglycemia: resolved does not have DM HbA1C 4.7% depression: restart cymbalta PPx: HSQ/SCDs protonix PO PT consult/OOB-> Chair FEN: no IVF needed at this time replete potassium CLD advance as tolerated Case discussed with attending updated on status.
[2017-01-17] MEDS ORDERED: PANTOPRAZOLE SOD 40 MG SUSPENSION PACKET PO SCH (15:13)
[2017-01-17] MEDS: LISINOPRIL 20 MG TABLET (FP) PO SCH (15:57)
[2017-01-17] MEDS: HYDROCHLOROTHIAZIDE 25 MG TABLET (FP) PO SCH (15:57)
[2017-01-17 16:04] LABS: BASOPHIL 0.9 % (0-2.0); EOSINOPHIL 1.5 % (0-4.5); MCH 25.8 pg (25.7-33.7); MCHC 31.1 g/dl (32.0-35.9); MEAN CELL VOLUME 82.9 fl (80-96); MEAN PLT VOLUME 7.2 fl (7.5-11.1); NEUTROPHILS 78.3 % (42.8-82.8); PLATELET COUNT 169 K/MM3 (134-434); RDW 15.6 % (11.9-15.9); WHITE BLOOD COUNT 7.7 K/mm3 (4.0-10.0)
--- NOTE | 2017-01-17 16:24 | PN ---
Teaching Attending Note Name of Resident: Davian Glover ATTENDING PHYSICIAN STATEMENT I saw and evaluated the patient. I reviewed the resident's note and discussed the case with the resident. I agree with the resident's findings and plan as documented. SUBJECTIVE: Patient seen and examined in the ICU. Awake and responsive on CPAP trial. Agitated and trying to get out of the bed. Intake & Output 01/14/17 01/15/17 01/16/17 01/17/17 23:59 23:59 23:59 23:59 Intake Total 225 810 Output Total 2100 2400 Balance -1875 -1590 Weight 230 lb 6.129 oz 218 lb 14.704 oz Last Vital Signs Temp Pulse Resp BP Pulse Ox 99.0 F 95 H 14 163/109 100 01/17/17 15:00 01/17/17 16:00 01/17/17 16:00 01/17/17 16:00 01/17/17 15:06 Active Medications Chlorhexidine Gluconate (Hibiclens For Decolonization -) 1 applic TP HS [facility] Last Admin: 01/16/17 21:20 Dose: 1 applic Duloxetine HCl (Cymbalta -) 60 mg PO DAILY [facility] Last Admin: 01/17/17 12:37 Dose: 60 mg Heparin Sodium (Porcine) (Heparin -) 5,000 unit SQ TID [facility] Last Admin: 01/17/17 14:54 Dose: 5,000 unit Hydralazine HCl (Apresoline Injection -) 20 mg IVPUSH Q6H PRN PRN Reason: HYPERTENSION Last Admin: 01/17/17 11:04 Dose: 20 mg Hydrochlorothiazide (Hctz -) 25 mg PO DAILY [facility] Last Admin: 01/17/17 15:57 Dose: 25 mg Labetalol HCl (Normodyne -) 100 mg PO TID [facility] Last Admin: 01/17/17 14:54 Dose: 100 mg Lisinopril (Prinivil) 40 mg PO DAILY [facility] Last Admin: 01/17/17 15:57 Dose: 40 mg Mupirocin (Bactroban Ointment (For Decolonization) -) 1 applic NS BID [facility] Stop: 01/21/17 21:59 Last Admin: 01/17/17 09:12 Dose: 1 applic Nifedipine (Procardia Xl -) 90 mg PO DAILY [facility] Last Admin: 01/17/17 12:38 Dose: 90 mg Pantoprazole Sodium (Protonix -) 40 mg PO DAILY HONEY Constitutional: Yes: Awake and alert, Anxious, intubated Eyes: Yes: Conjunctiva Clear HENT: Yes: Atraumatic, Normocephalic Neck: Yes: Supple, Trachea Midline Cardiovascular: Yes: Regular Rate and Rhythm Respiratory: Yes: Few scattered rhonchi Gastrointestinal: Yes: Soft Genitourinary: Yes: Rubio Present Edema: No Neurological: Yes: Non-focal Labs: Laboratory Results - last 24 hr 01/16/17 01/16/17 01/16/17 09:48 18:32 21:15 WBC RBC Hgb Hct MCV MCH MCHC RDW Plt Count MPV Neutrophils % Lymphocytes % Monocytes % Eosinophils % Basophils % Sodium Potassium Chloride Carbon Dioxide Anion Gap BUN Creatinine POC Glucometer 111.34563 Random Glucose Hemoglobin A1c % Calcium Magnesium Troponin I 0.23 H TSH Urine Color Straw Urine Appearance Clear Urine pH 7.0 Ur Specific [place] 1.020 Urine Protein 2+ H Urine Glucose (UA) 1+ H Urine Ketones Negative Urine Blood 1+ H Urine Nitrite Negative Urine Bilirubin Negative Urine Urobilinogen Negative Ur Leukocyte Esterase Negative Urine RBC 1 Urine WBC 1 Hyaline Casts 1 Urine Mucus Rare 01/17/17 01/17/17 01/17/17 04:50 05:15 05:15 WBC 6.4 D RBC 3.41 L Hgb 8.9 L Hct 28.4 L MCV 83.2 MCH 26.2 MCHC 31.6 L RDW 15.7 Plt Count 169 MPV 8.0 D Neutrophils % 70.3 Lymphocytes % 17.2 D Monocytes % 10.3 H Eosinophils % 1.7 Basophils % 0.5 Sodium 143 Potassium 3.5 Chloride 105 Carbon Dioxide 29 Anion Gap 9 BUN 22 H Creatinine 1.5 H POC Glucometer 112.78036 Random Glucose 92 D Hemoglobin A1c % Calcium 8.3 L Magnesium 2.2 Troponin I TSH 1.19 D Urine Color Urine Appearance Urine pH Ur Specific [place] Urine Protein Urine Glucose (UA) Urine Ketones Urine Blood Urine Nitrite Urine Bilirubin Urine Urobilinogen Ur Leukocyte Esterase Urine RBC Urine WBC Hyaline Casts Urine Mucus 01/17/17 01/17/17 01/17/17 05:15 11:58 15:47 WBC 7.7 RBC 3.91 L Hgb 10.1 L D Hct 32.5 L MCV 82.9 MCH 25.8 MCHC 31.1 L RDW 15.6 Plt Count 169 MPV 7.2 L Neutrophils % 78.3 Lymphocytes % 9.0 D Monocytes % 10.3 H Eosinophils % 1.5 Basophils % 0.9 Sodium Potassium Chloride Carbon Dioxide Anion Gap BUN Creatinine POC Glucometer 125.42995 Random Glucose Hemoglobin A1c % 4.7 L D Calcium Magnesium Troponin I TSH Urine Color Urine Appearance Urine pH Ur Specific [place] Urine Protein Urine Glucose (UA) Urine Ketones Urine Blood Urine Nitrite Urine Bilirubin Urine Urobilinogen Ur Leukocyte Esterase Urine RBC Urine WBC Hyaline Casts Urine Mucus Assessment/Plan Acute Respiratory Failure Uncontrolled hypertension Medication noncompliance AMS Previously suspected Hypertensive emergency (?) AMS due to toxic ingestion Wean to exubate Titrate BP Meds VTE prophylaxis Lasix as needed ECHO Monitor for potential withdrawal symptoms Would hold VTE workup at this time as I have a low clinical suspicion due to an alternate diagnosis and patient is clinically improving without specific VTE treatment Dr Dillard Critical Care Time/[facility] Note Total Critical Care Time: 35 Critical Care Statement: The care of this patient involved high complexity decision making to prevent further life threatening deterioration of the patient 's condition and/or to evalute & treat vital organ system(s) failure or risk of failure.
[2017-01-17] MEDS: CHLORHEXIDINE GLUCONATE 4% CLEANSER FOR DECOLONIZATION TP SCH (22:33)
[2017-01-18 00:55] LABS: TROPONIN I 0.37 ng/ml (0.00-0.05)
[2017-01-18 06:25] LABS: BASOPHIL 0.9 % (0-2.0); MCH 25.9 pg (25.7-33.7); MCHC 31.3 g/dl (32.0-35.9); MEAN CELL VOLUME 82.6 fl (80-96); MEAN PLT VOLUME 7.7 fl (7.5-11.1); NEUTROPHILS 68.2 % (42.8-82.8); PLATELET COUNT 179 K/MM3 (134-434); RDW 15.9 % (11.9-15.9); WHITE BLOOD COUNT 5.9 K/mm3 (4.0-10.0)
[2017-01-18] MEDS: LABETALOL HCL 100 MG TABLET (FP) PO SCH ×3 (07:11→21:36)
[2017-01-18] MEDS: HEPARIN NA (PORCINE) 5,000 UNITS/ML 1ML VIAL SQ SCH ×3 (07:11→21:34)
[2017-01-18 07:50] LABS: ALBUMIN 3.5 g/dl (3.4-5.0); ALK PHOS 108 U/L (45-117); ANION GAP 7 (8-16); BILIRUBIN,TOTAL 1.1 mg/dL (0.2-1.0); CALCIUM 8.8 mg/dL (8.5-10.1); CO2 27 mmol/L (21-32); CREATININE 1.2 mg/dL (0.7-1.3); GLUCOSE,RANDOM 99 mg/dL (74-106); PHOSPHOROUS 2.6 mg/dL (2.5-4.9); SGOT/AST 19 U/L (15-37); SGPT/ALT 44 U/L (12-78); TOT PROT 7.2 g/dl (6.4-8.2)
[2017-01-18] MEDS ORDERED: POTASSIUM CHLORIDE TABS 20 MEQ TABLET.ER (FP) PO ONE (08:43)
--- NOTE | 2017-01-18 08:43 | PN ---
Progress Note, Physician Chief Complaint: Alert and oriented Feeling "much better" TELE: Self limited runs of PSVT and longish self limited runs of NSVT up to 20 beats. On my ROS, he has had PND symptoms for about 4 weeks and episodes of palpitations and occasional dizziness Presented here with uncontrolled HTN, CHF, intubated- now extubated. - Current Medication List Current Medications: Active Medications Chlorhexidine Gluconate (Hibiclens For Decolonization -) 1 applic TP HS [facility] Last Admin: 01/17/17 22:33 Dose: 1 applic Duloxetine HCl (Cymbalta -) 60 mg PO DAILY [facility] Last Admin: 01/17/17 12:37 Dose: 60 mg Heparin Sodium (Porcine) (Heparin -) 5,000 unit SQ TID [facility] Last Admin: 01/18/17 07:11 Dose: 5,000 unit Hydralazine HCl (Apresoline Injection -) 20 mg IVPUSH Q6H PRN PRN Reason: HYPERTENSION Last Admin: 01/17/17 11:04 Dose: 20 mg Hydrochlorothiazide (Hctz -) 25 mg PO DAILY [facility] Last Admin: 01/17/17 15:57 Dose: 25 mg Labetalol HCl (Normodyne -) 100 mg PO TID [facility] Last Admin: 01/18/17 07:11 Dose: 100 mg Lisinopril (Prinivil) 40 mg PO DAILY [facility] Last Admin: 01/17/17 15:57 Dose: 40 mg Mupirocin (Bactroban Ointment (For Decolonization) -) 1 applic NS BID [facility] Stop: 01/21/17 21:59 Last Admin: 01/17/17 22:32 Dose: 1 applic Nifedipine (Procardia Xl -) 90 mg PO DAILY [facility] Last Admin: 01/17/17 12:38 Dose: 90 mg Pantoprazole Sodium (Protonix -) 40 mg PO DAILY [facility] - Objective Vital Signs: Vital Signs Temperature 99.9 F H 01/18/17 07:00 Pulse Rate 78 01/18/17 08:00 Respiratory Rate 18 01/18/17 08:00 Blood Pressure 135/90 01/18/17 08:00 O2 Sat by Pulse Oximetry (%) 99 01/17/17 22:00 Constitutional: Yes: No Distress, Calm Cardiovascular: Yes: Regular Rate and Rhythm Respiratory: Yes: CTA Bilaterally Gastrointestinal: Yes: Soft Edema: No Neurological: Yes: Alert, Oriented Labs: CBC, BMP 01/18/17 05:20 01/18/17 05:20 Laboratory Tests 01/16/17 01/16/17 01/16/17 09:10 13:54 21:15 WBC Hgb Plt Count Sodium Potassium BUN Creatinine Creatine Kinase 161 Troponin I 0.21 H 0.19 H 0.23 H 01/17/17 01/18/17 01/18/17 19:26 05:20 05:20 WBC 5.9 Hgb 10.0 L Plt Count 179 Sodium 137 Potassium 3.5 BUN 15 D Creatinine 1.2 Creatine Kinase 161 Troponin I 0.37 H D - ....Imaging EKG: Image Reviewed Assessment/Plan IMP: Acute on chronic diastolic CHF due to uncontrolled chronic HTN, non-adherence with medications Hypertensive heart disease Non-obstructive CAD Mildly dilated aortic root PSVT and long runs of NSVT REC: Acute on chronic diastolic CHF: -Continue current meds, BP trend is improving. -Repeat echo pending (LV fxn in June was nl with septum 1.5cm) -needs repeat counselling on importance of compliance with BP meds (by report was only taking some of his meds) -Suspect mild elevation in TnI due to CHF HTN heart disease: -due to chronic uncontrolled HTN. -Repeat echo -Cont. STELLA-I Non-obstructive CAD: -Has had several caths over the years, all with non-obstructive disease -Would initiate ASA and statin therapy -Will review office records to see when last cath was (likely within the last 2 years) Dilated aortic root: -Long standing, stable at around 4cm. -Continue Labetalol -Repeat echo PSVT/NSVT: -Longish runs of NSVT up to 20 beats. -Re-assess LV fxn -Continue beta amber -Keep K+ >4, Mg2+ >2 -EP consult w/ Dr. Benitez: ?EPS vs. ICD?
[2017-01-18 09:16] LABS: TROPONIN I 0.34 ng/ml (0.00-0.05)
[2017-01-18] MEDS: MUPIROCIN 2% TOPICAL OINTMENT FOR DECOLONIZATION NS SCH ×2 (09:35→21:33)
[2017-01-18] MEDS: HYDROCHLOROTHIAZIDE 25 MG TABLET (FP) PO SCH (09:36)
[2017-01-18] MEDS: MAGNESIUM OXIDE 400 MG TABLET (FP) PO SCH ×2 (09:36→21:36)
[2017-01-18] MEDS: NIFEdipine E.R. 90 MG TABLET (FP) PO SCH (09:36)
[2017-01-18] MEDS: DULoxetine HCL 30 MG CAPSULE.DR (FP) PO SCH (09:36)
[2017-01-18] MEDS: LISINOPRIL 20 MG TABLET (FP) PO SCH (09:37)
[2017-01-18] MEDS ORDERED: POTASSIUM CHLORIDE TABS 20 MEQ TABLET.ER (FP) PO SCH (10:00)
[2017-01-18] MEDS ORDERED: PANTOPRAZOLE 40 MG TABLET (FP) PO SCH (10:00)
[2017-01-18] MEDS ORDERED: TAMSULOSIN HCL 0.4 MG CAP.ER.24H (FP) PO SCH (10:00)
--- NOTE | 2017-01-18 12:21 | PN ---
Physical Exam: SUBJECTIVE: Patient seen and examined at bedside. Has been experiencing episodes of rapid heart beat accompanied with a squeezing-type pain and SOB. OBJECTIVE: Vital Signs Period Temp Pulse Resp BP Sys/Rosado Pulse Ox Last 24 Hr 98 F-99.9 F 73-98 13-22 131-177/82-126 94-100 GENERAL: The patient is awake, alert, and fully oriented, in no acute distress. HEAD: Normal with no signs of trauma. EYES: PERRL, extraocular movements intact, sclera anicteric, conjunctiva clear. No ptosis. LUNGS: Scattered rhonchi on left HEART: Regular rate and rhythm, S1, S2 without murmur, rub or gallop. ABDOMEN: Soft, nontender, nondistended, normoactive bowel sounds, no guarding, no rebound EXTREMITIES: 2+ pulses, warm, well-perfused, no edema. NEUROLOGICAL: Cranial nerves II through XII grossly intact. Normal speech, gait not observed. Laboratory Results - last 24 hr 01/17/17 01/17/17 01/18/17 15:47 19:26 05:20 WBC 7.7 5.9 RBC 3.91 L 3.87 L Hgb 10.1 L D 10.0 L Hct 32.5 L 32.0 L MCV 82.9 82.6 MCH 25.8 25.9 MCHC 31.1 L 31.3 L RDW 15.6 15.9 Plt Count 169 179 MPV 7.2 L 7.7 Neutrophils % 78.3 68.2 Lymphocytes % 9.0 D 19.5 D Monocytes % 10.3 H 9.4 Eosinophils % 1.5 2.0 Basophils % 0.9 0.9 Sodium Potassium Chloride Carbon Dioxide Anion Gap BUN Creatinine Creat Clearance w eGFR Random Glucose Calcium Phosphorus Magnesium Total Bilirubin AST ALT Alkaline Phosphatase Creatine Kinase 161 Creatine Kinase Index 1.5 CK-MB (CK-2) 2.570 Troponin I 0.37 H D Total Protein Albumin 01/18/17 01/18/17 05:20 05:20 WBC RBC Hgb Hct MCV MCH MCHC RDW Plt Count MPV Neutrophils % Lymphocytes % Monocytes % Eosinophils % Basophils % Sodium 137 Potassium 3.5 Chloride 103 Carbon Dioxide 27 Anion Gap 7 L BUN 15 D Creatinine 1.2 Creat Clearance w eGFR > 60 Random Glucose 99 Calcium 8.8 Phosphorus 2.6 Magnesium 2.0 Total Bilirubin 1.1 H D AST 19 D ALT 44 D Alkaline Phosphatase 108 Creatine Kinase Creatine Kinase Index CK-MB (CK-2) Troponin I 0.34 H Cancelled Total Protein 7.2 Albumin 3.5 Active Medications Generic Name Dose Route Start Last Admin Trade Name Freq PRN Reason Stop Dose Admin Chlorhexidine Gluconate 1 applic 01/16/17 22:00 01/17/17 22:33 Hibiclens For Decolonization - TP 1 applic HS HONEY Administration Duloxetine HCl 60 mg 01/17/17 11:15 01/18/17 09:36 Cymbalta - PO 60 mg DAILY HONEY Administration Heparin Sodium (Porcine) 5,000 unit 01/16/17 14:00 01/18/17 07:11 Heparin - SQ 5,000 unit TID HONEY Administration Hydralazine HCl 20 mg 01/16/17 13:59 01/17/17 11:04 Apresoline Injection - IVPUSH 20 mg Q6H PRN Administration HYPERTENSION Hydrochlorothiazide 25 mg 01/17/17 15:00 01/18/17 09:36 Hctz - PO 25 mg DAILY HONEY Administration Labetalol HCl 100 mg 01/17/17 14:00 01/18/17 07:11 Normodyne - PO 100 mg TID HONEY Administration Lisinopril 40 mg 01/17/17 15:00 01/18/17 09:37 Prinivil PO 40 mg DAILY HONEY Administration Magnesium Oxide 400 mg 01/18/17 10:00 01/18/17 09:36 Mag-Ox - PO 01/20/17 23:59 400 mg BID HONEY Administration Mupirocin 1 applic 01/16/17 22:00 01/18/17 09:35 Bactroban Ointment (For Decolonization) - NS 01/21/17 21:59 1 applic BID HONEY Administration Nifedipine 90 mg 01/17/17 11:00 01/18/17 09:36 Procardia Xl - PO 90 mg DAILY HONEY Administration Pantoprazole Sodium 40 mg 01/18/17 10:00 01/18/17 09:36 Protonix - PO 40 mg DAILY HONEY Administration Potassium Chloride 20 meq 01/18/17 10:00 01/18/17 09:38 K-Dur - PO Not Given DAILY [facility] ASSESSMENT/PLAN 56 year-old male with a PMH of HTN, CAD, diastolic heart failure, NIDDM, kidney stones, and current everyday smoker. Admitted for hypertensive emergency and respiratory failure secondary to acute on chronic diastolic heart failure. Hypertensive emergency --BP 251/163 on admission, in hypercarbic respiratory failure --continue lisinopril, labetolol, nifedipine, hydralazine, HCTZ Acute on chronic diastolic heart failure --diuresed 20 pounds in 48 hours --repeat echo pending --strict I&Os, daily weights --stop HCTZ, start Lasix IV 40 daily Hypercarbic respiratory failure --intubated 01/16, extubated 7.31; satting well on room air Coronary artery disease --flat-trending troponins likely secondary to heart failure PSVT/NSVT --prolonged runs of NSVT up to 20 beats --continue beta amber --keep K>4, Mg >2 (both repleted today) --EP consult with Dr. Benitez pending --cardiology following Acute kidney injury, improved h/o kidney stones --renal function improving with diuresis --Cr 1.2 (<--1.6) NIDDM --on no home meds --Novolog sliding scale coverage Depression --continue Cymbalta F/E/N Fluids: PO intake adequate Electrolytes: replete as indicated Nutrition: sodium controlled DVT prophylaxis: subq heparin PT evaluation Daily PT Dispo: continues to require ICU level care. Visit type - Emergency Visit Emergency Visit: Yes ED Registration Date: 01/16/17 Care time: The patient presented to the Emergency Department on the above date and was hospitalized for further evaluation of their emergent condition. - New Patient This patient is new to me today: Yes Date on this admission: 01/18/17 - Critical Care Critical Care patient: Yes Total Critical Care Time (in minutes): 45 Critical Care Statement: The care of this patient involved high complexity decision making to prevent further life threatening deterioration of the patient 's condition and/or to evalute & treat vital organ system(s) failure or risk of failure.
--- NOTE | 2017-01-18 12:54 | PN ---
Progress Note, Physician History of Present Illness: patient seen and examined at bedside NSVT overnight patient feels much better today - Current Medication List Current Medications: Active Medications Aspirin (Ecotrin -) 81 mg PO DAILY [facility] Atorvastatin Calcium (Lipitor -) 40 mg PO HS [facility] Chlorhexidine Gluconate (Hibiclens For Decolonization -) 1 applic TP HS [facility] Last Admin: 01/17/17 22:33 Dose: 1 applic Duloxetine HCl (Cymbalta -) 60 mg PO DAILY [facility] Last Admin: 01/18/17 09:36 Dose: 60 mg Heparin Sodium (Porcine) (Heparin -) 5,000 unit SQ TID [facility] Last Admin: 01/18/17 07:11 Dose: 5,000 unit Hydralazine HCl (Apresoline Injection -) 20 mg IVPUSH Q6H PRN PRN Reason: HYPERTENSION Last Admin: 01/17/17 11:04 Dose: 20 mg Hydrochlorothiazide (Hctz -) 25 mg PO DAILY [facility] Last Admin: 01/18/17 09:36 Dose: 25 mg Labetalol HCl (Normodyne -) 200 mg PO TID [facility] Lisinopril (Prinivil) 40 mg PO DAILY [facility] Last Admin: 01/18/17 09:37 Dose: 40 mg Magnesium Oxide (Mag-Ox -) 400 mg PO BID [facility] Stop: 01/20/17 23:59 Last Admin: 01/18/17 09:36 Dose: 400 mg Mupirocin (Bactroban Ointment (For Decolonization) -) 1 applic NS BID [facility] Stop: 01/21/17 21:59 Last Admin: 01/18/17 09:35 Dose: 1 applic Nifedipine (Procardia Xl -) 90 mg PO DAILY [facility] Last Admin: 01/18/17 09:36 Dose: 90 mg Pantoprazole Sodium (Protonix -) 40 mg PO DAILY [facility] Last Admin: 01/18/17 09:36 Dose: 40 mg Potassium Chloride (K-Dur -) 20 meq PO DAILY [facility] Last Admin: 01/18/17 09:38 Dose: Not Given - Objective Vital Signs: Vital Signs Temperature 98 F 01/18/17 11:00 Pulse Rate 80 01/18/17 11:00 Respiratory Rate 18 01/18/17 11:00 Blood Pressure 132/99 01/18/17 11:00 O2 Sat by Pulse Oximetry (%) 99 01/18/17 09:49 Constitutional: Yes: AAOx3 Eyes: Yes: Conjunctiva Clear HENT: Yes: Atraumatic, Normocephalic Neck: Yes: Supple, Trachea Midline Cardiovascular: Yes: Regular Rate and Rhythm Respiratory: Yes: Regular, CTA Bilaterally Gastrointestinal: Yes: Soft Edema: No Neurological: Yes: AAOx3 Labs: CBC, BMP 01/18/17 05:20 01/18/17 05:20 Assessment/Plan 56F with uncontrolled hypertension non complicant on medications presented to the ED with hypertensive emergency and altered mental status. hypertensive emergency:BP much improved now BP improving still not well controlled continue lisinopril HCTZ increase [id number] to 200mg po TID continue procardia 90mg daily altered mental: possible hypertensive encephalopathy resolved CT head not done-not needed at this time NSVT overnight: EP consult per cardiology f/u Echo f/u EP recommendations CAD: non ischemic CAD per cardiology start aspirin and statin per cardiology acute respiratory failure: could have been flash pulmonary edema secondary to hypertensive emergency: Resolved acute on chronic exacerbation of CHF: lasix currently on hold cardiology consult appreciated will jeanniee PRN f/u echo Acute kidney injury: creatinine 1.2 today significantly improved will continue to trend history of thoracic aortic aneurysm: not active at this time recent CT did not show aneurysm just dilation outpatient follow up hyperglycemia: resolved does not have DM HbA1C 4.7% depression: continue cymbalta PPx: HSQ/SCDs protonix PO PT consult/OOB-> Chair FEN: no IVF needed at this time replete potassium low sodium diet Case discussed with attending updated on status. transfer to telemetry
[2017-01-18] MEDS ORDERED: ASPIRIN COATED 81 MG TABLET.EC PO SCH (13:30)
[2017-01-18] MEDS ORDERED: FUROSEMIDE 40 MG/4 ML INJECTABLE VIAL IVPUSH SCH (14:00)
--- NOTE | 2017-01-18 15:39 | PN ---
Teaching Attending Note Name of Resident: Davian Glover ATTENDING PHYSICIAN STATEMENT I saw and evaluated the patient. I reviewed the resident's note and discussed the case with the resident. I agree with the resident's findings and plan as documented. SUBJECTIVE: Patient seen and examined in the ICU. Remains extubated. Awake and responsive. Breathing feels better. Some dry cough. NSVT episodes overnight. Intake & Output 01/15/17 01/16/17 01/17/17 01/18/17 23:59 23:59 23:59 23:59 Intake Total 225 810 Output Total 2100 3810 2500 Balance -1875 -3000 -2500 Weight 230 lb 6.129 oz 218 lb 14.704 oz 210 lb 8.663 oz Last Vital Signs Temp Pulse Resp BP Pulse Ox 98.3 F 86 18 132/95 99 01/18/17 14:30 01/18/17 14:30 01/18/17 14:30 01/18/17 14:30 01/18/17 09:49 Active Medications Aspirin (Ecotrin -) 81 mg PO DAILY [facility] Last Admin: 01/18/17 14:20 Dose: 81 mg Atorvastatin Calcium (Lipitor -) 40 mg PO HS [facility] Chlorhexidine Gluconate (Hibiclens For Decolonization -) 1 applic TP HS [facility] Last Admin: 01/17/17 22:33 Dose: 1 applic Duloxetine HCl (Cymbalta -) 60 mg PO DAILY [facility] Last Admin: 01/18/17 09:36 Dose: 60 mg Furosemide (Lasix Injection -) 40 mg IVPUSH DAILY [facility] Heparin Sodium (Porcine) (Heparin -) 5,000 unit SQ TID [facility] Last Admin: 01/18/17 14:20 Dose: 5,000 unit Hydralazine HCl (Apresoline Injection -) 20 mg IVPUSH Q6H PRN PRN Reason: HYPERTENSION Last Admin: 01/17/17 11:04 Dose: 20 mg Insulin Aspart (Novolog Vial Sliding Scale -) 1 vial SQ ACHS [facility] PRN Reason: Protocol Labetalol HCl (Normodyne -) 200 mg PO TID [facility] Last Admin: 01/18/17 14:20 Dose: 200 mg Lisinopril (Prinivil) 40 mg PO DAILY [facility] Last Admin: 01/18/17 09:37 Dose: 40 mg Magnesium Oxide (Mag-Ox -) 400 mg PO BID [facility] Stop: 01/20/17 23:59 Last Admin: 01/18/17 09:36 Dose: 400 mg Mupirocin (Bactroban Ointment (For Decolonization) -) 1 applic NS BID [facility] Stop: 01/21/17 21:59 Last Admin: 01/18/17 09:35 Dose: 1 applic Nifedipine (Procardia Xl -) 90 mg PO DAILY [facility] Last Admin: 01/18/17 09:36 Dose: 90 mg Pantoprazole Sodium (Protonix -) 40 mg PO DAILY [facility] Last Admin: 01/18/17 09:36 Dose: 40 mg Potassium Chloride (K-Dur -) 20 meq PO DAILY [facility] Last Admin: 01/18/17 09:38 Dose: Not Given Constitutional: Yes: Awake and alert, NAD Eyes: Yes: Conjunctiva Clear HENT: Yes: Atraumatic, Normocephalic Neck: Yes: Supple, Trachea Midline Cardiovascular: Yes: Regular Rate and Rhythm Respiratory: Yes: Few scattered rhonchi Gastrointestinal: Yes: Soft Genitourinary: Yes: Rubio removed Edema: No Neurological: Yes: Non-focal Labs: Laboratory Results - last 24 hr 01/17/17 01/17/17 01/18/17 15:47 19:26 05:20 WBC 7.7 5.9 RBC 3.91 L 3.87 L Hgb 10.1 L D 10.0 L Hct 32.5 L 32.0 L MCV 82.9 82.6 MCH 25.8 25.9 MCHC 31.1 L 31.3 L RDW 15.6 15.9 Plt Count 169 179 MPV 7.2 L 7.7 Neutrophils % 78.3 68.2 Lymphocytes % 9.0 D 19.5 D Monocytes % 10.3 H 9.4 Eosinophils % 1.5 2.0 Basophils % 0.9 0.9 Sodium Potassium Chloride Carbon Dioxide Anion Gap BUN Creatinine Creat Clearance w eGFR Random Glucose Calcium Phosphorus Magnesium Total Bilirubin AST ALT Alkaline Phosphatase Creatine Kinase 161 Creatine Kinase Index 1.5 CK-MB (CK-2) 2.570 Troponin I 0.37 H D Total Protein Albumin 01/18/17 01/18/17 05:20 05:20 WBC RBC Hgb Hct MCV MCH MCHC RDW Plt Count MPV Neutrophils % Lymphocytes % Monocytes % Eosinophils % Basophils % Sodium 137 Potassium 3.5 Chloride 103 Carbon Dioxide 27 Anion Gap 7 L BUN 15 D Creatinine 1.2 Creat Clearance w eGFR > 60 Random Glucose 99 Calcium 8.8 Phosphorus 2.6 Magnesium 2.0 Total Bilirubin 1.1 H D AST 19 D ALT 44 D Alkaline Phosphatase 108 Creatine Kinase Creatine Kinase Index CK-MB (CK-2) Troponin I 0.34 H Cancelled Total Protein 7.2 Albumin 3.5 Assessment/Plan Acute Respiratory Failure Uncontrolled hypertension Medication noncompliance AMS Previously suspected Hypertensive emergency (?) AMS due to toxic ingestion O2 as needed EP consult has been called to address NSVT VTE prophylaxis Lasix as needed Would continue to hold VTE workup as I have a low clinical suspicion due to an alternate diagnosis and patient is clinically improving without specific VTE treatment Dr Dillard Critical Care Time/[facility] Note Total Critical Care Time: 35 Critical Care Statement: The care of this patient involved high complexity decision making to prevent further life threatening deterioration of the patient 's condition and/or to evalute & treat vital organ system(s) failure or risk of failure.
[2017-01-18] MEDS: INSULIN SLIDING SCALE (NOVOLOG) 1 VIAL SQ SCH ×2 (17:02→21:36)
[2017-01-18] MEDS: CHLORHEXIDINE GLUCONATE 4% CLEANSER FOR DECOLONIZATION TP SCH (21:35)
[2017-01-18] MEDS ORDERED: ATORVASTATIN CA 40 MG TABLET (FP) PO SCH (22:00)
--- NOTE | 2017-01-18 23:26 | CON.CARD ---
Consult Consult Specialty:: EPS Referred by:: Dr. Rooney Reason for Consultation:: NSVT - History of Present Illness Chief Complaint: NSVT History of Present Illness: Mr. Lopez is a 56 year old male with a pmh of non-obstructive cad, ?hcm, smoker, htn, recently admitted for heart failure who presented with hypertensive urgency with sudden onset shortness of breath, chest pain and diaphoresis. He was treated with a labetolol gtt. Telemetry monitoring, now off gtt, has demonstrated multiple runs of symptomatic monomorphic nsvt, at around 175 bpm, max 20 sec duration. He states that he experiences dizziness at random times as an outpt. He denies true syncope. He underwent a cardiac catheterization approximately 2-3 years ago that was negative for obstructive disease. - History Source History Provided By: Patient Limitations to Obtaining History: No Limitations - Past Medical History Cardio/Vascular: Yes: CAD, CHF (diastolic; moderately dilated LV), HTN Renal/: Yes: Renal Calculi Psych: Yes: Depression - Alcohol/Substance Use Hx Alcohol Use: No History of Substance Use: reports: Marijuana - Smoking History Smoking history: Current every day smoker Aproximately how many cigarettes per day: 10 - Social History Usual Living Arrangement: With Spouse ADL: Independent Occupation: currently unemployed Home Medications - Allergies Allergies/Adverse Reactions: Allergies Allergy/AdvReac Type Severity Reaction Status Date / Time adhesive tape Allergy Verified 01/16/17 08:58 No Known Drug Allergies Allergy Verified 01/16/17 09:07 - Home Medications Home Medications: Ambulatory Orders Hydrochlorothiazide [Hctz] 25 mg PO DAILY 11/09/11 Lisinopril [Zestril] 40 mg PO DAILY 11/09/11 Tamsulosin HCl 0.4 mg PO DAILY 11/09/11 Duloxetine HCl [Cymbalta -] 60 mg PO DAILY 06/29/16 Furosemide 20 mg PO DAILY 06/29/16 Labetalol HCl 100 mg PO TID 06/29/16 Nifedipine ER [Procardia XL -] 90 mg PO DAILY 06/29/16 Aspirin Coated [Ecotrin -] 81 mg PO DAILY #30 tab 01/19/17 Atorvastatin Ca [Lipitor] 40 mg PO HS #30 tablet 01/19/17 Furosemide Injection [Lasix Injection -] 40 mg IVPUSH DAILY vial 01/19/17 Heparin - 5,000 unit SQ TID #90 vial 01/19/17 Hydralazine Injection [Apresoline Injection -] 20 mg IVPUSH Q6H PRN #0 vial 08/06 Insulin Sliding Scale [Novolog Vial Sliding Scale -] 1 vial SQ ACHS units 01/19 Magnesium Oxide [Mag-Ox -] 400 mg PO BID tablet 01/19/17 Pantoprazole Sodium [Protonix -] 40 mg PO DAILY #30 tab 01/19/17 Potassium Chloride [K-Dur -] 20 meq PO DAILY #30 tab 01/19/17 Family Disease History - Family Disease History Family History: Unremarkable Review of Systems - Review of Systems Constitutional: denies: Chills, Fever Eyes: denies: Blurred Vision HENT: reports: No Symptoms Neck: reports: No Symptoms Cardiovascular: reports: Palpitations, Shortness of Breath Respiratory: reports: No Symptoms Genitourinary: reports: No Symptoms Integumentary: reports: No Symptoms Neurological: reports: No Symptoms Hematology/Lymphatic: reports: No Symptoms Vital Signs: Vital Signs Temperature 98.2 F 01/18/17 21:43 Pulse Rate 67 01/18/17 21:43 Respiratory Rate 18 01/18/17 21:43 Blood Pressure 126/88 01/18/17 21:43 O2 Sat by Pulse Oximetry (%) 99 01/18/17 09:49 Constitutional: Yes: Well Nourished Eyes: Yes: WNL HENT: Yes: WNL, Atraumatic, Normocephalic Neck: Yes: WNL Respiratory: Yes: WNL, Regular, CTA Bilaterally Gastrointestinal: Yes: WNL, Normal Bowel Sounds, Soft Cardiovascular: Yes: WNL, Regular Rate and Rhythm Heart Sounds: Yes: S1, S2 Murmur: Yes: Systolic Murmur, Grade 2 Musculoskeletal: Yes: WNL Extremities: Yes: WNL Edema: No Neurological: Yes: WNL Psychiatric: Yes: WNL, Alert, Oriented - Other Data Labs, Other Data: CBC, BMP 01/18/17 05:20 01/18/17 05:20 Troponin, BNP 01/17/17 01/18/17 01/18/17 19:26 05:20 05:20 Troponin I 0.37 H D 0.34 H Cancelled Troponin, BNP 01/17/17 01/18/17 01/18/17 19:26 05:20 05:20 Troponin I 0.37 H D 0.34 H Cancelled Imaging - Results EKG: Image Reviewed Assessment/Plan 01/18/2017: JVD EPS: requested by Dr. Rooney to see patient with 20 beats of nsvt yesterday evening associated with dizziness. reported non-obstructive cad in the past with hcm. echo today is pending. last IVS 1.5 cm. hypertensive. on labetalol 100 mg. - f/u echo - keep k 4-4.5, mg 2-2.5 - increase labetalol as tolerated for bp/hr optimization. this will help with nsvt as well - if true hcm, may be a candidate for icd placement. will await echo findings - care as per cardiology Thank you for allowing me to participate in the care of this patient. Please call with any questions. Wilfredo Benitez MD [phone]
[2017-01-19 05:14] LABS: URINE MARIJUANA THC POSITIVE ng/ml (CUTOFF=50)
[2017-01-19] MEDS: HEPARIN NA (PORCINE) 5,000 UNITS/ML 1ML VIAL SQ SCH ×3 (06:03→21:18)
[2017-01-19] MEDS: LABETALOL HCL 100 MG TABLET (FP) PO SCH ×3 (06:04→21:18)
[2017-01-19] MEDS: INSULIN SLIDING SCALE (NOVOLOG) 1 VIAL SQ SCH ×4 (06:04→21:19)
[2017-01-19 06:41] LABS: MCH 26.3 pg (25.7-33.7); MEAN CELL VOLUME 82.1 fl (80-96); MEAN PLT VOLUME 7.7 fl (7.5-11.1); PLATELET COUNT 209 K/MM3 (134-434); RDW 15.7 % (11.9-15.9); WHITE BLOOD COUNT 4.9 K/mm3 (4.0-10.0)
[2017-01-19 06:53] LABS: ALBUMIN 3.3 g/dl (3.4-5.0); ANION GAP 6 (8-16); CALCIUM 8.9 mg/dL (8.5-10.1); CO2 28 mmol/L (21-32); GLUCOSE,RANDOM 89 mg/dL (74-106); MAGNESIUM 1.9 mg/dL (1.8-2.4); PHOSPHOROUS 2.8 mg/dL (2.5-4.9); SGOT/AST 20 U/L (15-37)
[2017-01-19 06:55] LABS: ALK PHOS 98 U/L (45-117); BILIRUBIN,TOTAL 0.9 mg/dL (0.2-1.0); CREATININE 1.3 mg/dL (0.7-1.3); SGPT/ALT 33 U/L (12-78); TOT PROT 7.2 g/dl (6.4-8.2)
--- NOTE | 2017-01-19 06:58 | PN ---
Progress Note, Physician Chief Complaint: nsvt History of Present Illness: continued nsvt - Current Medication List Current Medications: Active Medications Aspirin (Ecotrin -) 81 mg PO DAILY [facility] Last Admin: 01/18/17 14:20 Dose: 81 mg Atorvastatin Calcium (Lipitor -) 40 mg PO HS [facility] Last Admin: 01/18/17 21:36 Dose: 40 mg Chlorhexidine Gluconate (Hibiclens For Decolonization -) 1 applic TP HS [facility] Last Admin: 01/18/17 21:35 Dose: 1 applic Duloxetine HCl (Cymbalta -) 60 mg PO DAILY [facility] Last Admin: 01/18/17 09:36 Dose: 60 mg Furosemide (Lasix Injection -) 40 mg IVPUSH DAILY [facility] Heparin Sodium (Porcine) (Heparin -) 5,000 unit SQ TID [facility] Last Admin: 01/19/17 06:03 Dose: 5,000 unit Hydralazine HCl (Apresoline Injection -) 20 mg IVPUSH Q6H PRN PRN Reason: HYPERTENSION Last Admin: 01/17/17 11:04 Dose: 20 mg Insulin Aspart (Novolog Vial Sliding Scale -) 1 vial SQ [facility] PRN Reason: Protocol Last Admin: 01/19/17 06:04 Dose: Not Given Labetalol HCl (Normodyne -) 200 mg PO TID [facility] Last Admin: 01/19/17 06:04 Dose: 200 mg Lisinopril (Prinivil) 40 mg PO DAILY [facility] Last Admin: 01/18/17 09:37 Dose: 40 mg Magnesium Oxide (Mag-Ox -) 400 mg PO BID [facility] Stop: 01/20/17 23:59 Last Admin: 01/18/17 21:36 Dose: 400 mg Mupirocin (Bactroban Ointment (For Decolonization) -) 1 applic NS BID [facility] Stop: 01/21/17 21:59 Last Admin: 01/18/17 21:33 Dose: 1 applic Nifedipine (Procardia Xl -) 90 mg PO DAILY [facility] Last Admin: 01/18/17 09:36 Dose: 90 mg Pantoprazole Sodium (Protonix -) 40 mg PO DAILY [facility] Last Admin: 01/18/17 09:36 Dose: 40 mg Potassium Chloride (K-Dur -) 20 meq PO DAILY [facility] Last Admin: 01/18/17 09:38 Dose: Not Given - Objective Vital Signs: Vital Signs Temperature 98.2 F 01/19/17 05:50 Pulse Rate 67 01/19/17 05:50 Respiratory Rate 18 01/19/17 05:50 Blood Pressure 119/91 01/19/17 05:50 O2 Sat by Pulse Oximetry (%) 97 01/19/17 05:13 Constitutional: Yes: Well Nourished, No Distress Neck: Yes: WNL Cardiovascular: Yes: WNL, Regular Rate and Rhythm, Murmur Respiratory: Yes: WNL, Regular, CTA Bilaterally Gastrointestinal: Yes: WNL Edema: No Peripheral Pulses WNL: Yes - ....Imaging EKG: Image Reviewed Assessment/Plan 01/19/2017: JVD EPS: had recurrent nsvt overnight, max 10 beats, about 175 bpm. he states that he felt palpitations during those times. echo done, results pending. - f/u echo - titrate up on beta-amber therapy as tolerated. consider change to toprol xl. - keep k 4-4.5, mg 2-2.5 - care as per cardiology CC: 35 minutes 01/18/2017: JVD EPS: requested by Dr. Rooney to see patient with 20 beats of nsvt yesterday evening associated with dizziness. reported non-obstructive cad in the past with hcm. echo today is pending. last IVS 1.5 cm. hypertensive. on labetalol 100 mg. - f/u echo - keep k 4-4.5, mg 2-2.5 - increase labetalol as tolerated for bp/hr optimization. this will help with nsvt as well - if true hcm, may be a candidate for icd placement. will await echo findings - care as per cardiology Thank you for allowing me to participate in the care of this patient. Please call with any questions. Wilfredo Benitez MD [phone]
--- NOTE | 2017-01-19 09:12 | PN ---
Progress Note, Physician Chief Complaint: echo: septum 2cm Normal LV, Mild to moderate MR TELE: NSVT continues, self limited. - Current Medication List Current Medications: Active Medications Aspirin (Ecotrin -) 81 mg PO DAILY [facility] Atorvastatin Calcium (Lipitor -) 40 mg PO HS [facility] Duloxetine HCl (Cymbalta -) 60 mg PO DAILY [facility] Furosemide (Lasix Injection -) 40 mg IVPUSH DAILY [facility] Heparin Sodium (Porcine) (Heparin -) 5,000 unit SQ TID [facility] Insulin Aspart (Novolog Vial Sliding Scale -) 1 vial SQ ACHS [facility] PRN Reason: Protocol Last Admin: 01/19/17 06:04 Dose: Not Given Labetalol HCl (Normodyne -) 200 mg PO TID [facility] Last Admin: 01/19/17 06:04 Dose: 200 mg Lisinopril (Prinivil) 40 mg PO DAILY [facility] Nifedipine (Procardia Xl -) 90 mg PO DAILY [facility] Pantoprazole Sodium (Protonix -) 40 mg PO DAILY [facility] Potassium Chloride (K-Dur -) 20 meq PO DAILY [facility] - Objective Vital Signs: Vital Signs Temperature 98.2 F 01/19/17 05:50 Pulse Rate 67 01/19/17 05:50 Respiratory Rate 18 01/19/17 05:50 Blood Pressure 119/91 01/19/17 05:50 O2 Sat by Pulse Oximetry (%) 97 01/19/17 05:13 Constitutional: Yes: No Distress Cardiovascular: Yes: Regular Rate and Rhythm Respiratory: Yes: CTA Bilaterally Gastrointestinal: Yes: Soft Edema: No Neurological: Yes: Alert, Oriented ...Motor Strength: WNL Labs: CBC, BMP 01/19/17 05:30 01/19/17 05:30 Laboratory Tests 01/19/17 01/19/17 05:30 05:30 WBC 4.9 Hgb 10.5 L Plt Count 209 Sodium 135 L Potassium 4.0 BUN 20 H D Creatinine 1.3 - ....Imaging EKG: Image Reviewed Assessment/Plan IMP: Acute on chronic diastolic CHF due to uncontrolled chronic HTN, non-adherence with medications Hypertensive heart disease Non-obstructive CAD Mildly dilated aortic root PSVT and long runs of NSVT REC: Acute on chronic diastolic CHF: -Continue current meds, BP improved -Repeat echo w/ septum 2cm, overall normal EF -needs repeat counselling on importance of compliance with BP meds (by report was only taking some of his meds) -Suspect mild elevation in TnI due to CHF HTN heart disease: -due to chronic uncontrolled HTN. -Cont. STELLA-I Non-obstructive CAD: -Has had several caths over the years, all with non-obstructive disease -Would initiate ASA and statin therapy -Consider repeat ischemic evaluation Dilated aortic root: -Long standing, stable at around 4cm. -Continue Labetalol PSVT/NSVT: symptomatic -Longish runs of NSVT up to 20 beats. -EF normal -Continue beta amber -Keep K+ >4, Mg2+ >2 -D/W EP: will transfer to [facility] for repeat ischemic eval and EPS
[2017-01-19] MEDS ORDERED: MAGNESIUM SULF 50% (8.12 MEQ/2 ML-1 GM VIAL) IVPB ONE (10:00)
[2017-01-19] MEDS: LISINOPRIL 20 MG TABLET (FP) PO SCH (10:39)
[2017-01-19] MEDS: DULoxetine HCL 30 MG CAPSULE.DR (FP) PO SCH (10:40)
[2017-01-19] MEDS: NIFEdipine E.R. 90 MG TABLET (FP) PO SCH (10:40)
[2017-01-19] MEDS: ASPIRIN COATED 81 MG TABLET.EC PO SCH (10:41)
[2017-01-19] MEDS: PANTOPRAZOLE 40 MG TABLET (FP) PO SCH (10:42)
[2017-01-19] MEDS: POTASSIUM CHLORIDE TABS 20 MEQ TABLET.ER (FP) PO SCH (10:42)
[2017-01-19] MEDS: FUROSEMIDE 40 MG/4 ML INJECTABLE VIAL IVPUSH SCH (10:44)
[2017-01-19] MEDS ORDERED: POTASSIUM CHLORIDE TABS 20 MEQ TABLET.ER (FP) PO ONE (11:00)
--- NOTE | 2017-01-19 11:26 | PN ---
Progress Note, Physician Chief Complaint: pulmonary alert,oob-chair,feeing better,-sob,-cp, - Current Medication List Current Medications: Active Medications Aspirin (Ecotrin -) 81 mg PO DAILY [facility] Last Admin: 01/19/17 10:41 Dose: 81 mg Atorvastatin Calcium (Lipitor -) 40 mg PO HS [facility] Duloxetine HCl (Cymbalta -) 60 mg PO DAILY [facility] Last Admin: 01/19/17 10:40 Dose: 60 mg Furosemide (Lasix Injection -) 40 mg IVPUSH DAILY [facility] Last Admin: 01/19/17 10:44 Dose: 40 mg Heparin Sodium (Porcine) (Heparin -) 5,000 unit SQ TID [facility] Insulin Aspart (Novolog Vial Sliding Scale -) 1 vial SQ ACHS [facility] PRN Reason: Protocol Last Admin: 01/19/17 06:04 Dose: Not Given Labetalol HCl (Normodyne -) 200 mg PO TID [facility] Last Admin: 01/19/17 06:04 Dose: 200 mg Lisinopril (Prinivil) 40 mg PO DAILY [facility] Last Admin: 01/19/17 10:39 Dose: 40 mg Nifedipine (Procardia Xl -) 90 mg PO DAILY [facility] Last Admin: 01/19/17 10:40 Dose: 90 mg Pantoprazole Sodium (Protonix -) 40 mg PO DAILY [facility] Last Admin: 01/19/17 10:42 Dose: 40 mg Potassium Chloride (K-Dur -) 20 meq PO DAILY [facility] Last Admin: 01/19/17 10:42 Dose: 20 meq - Objective Vital Signs: Vital Signs Temperature 98.2 F 01/19/17 05:50 Pulse Rate 79 01/19/17 10:35 Respiratory Rate 18 01/19/17 10:04 Blood Pressure 109/92 01/19/17 10:04 O2 Sat by Pulse Oximetry (%) 100 01/19/17 10:35 Constitutional: Yes: Well Nourished, Calm Eyes: Yes: WNL HENT: Yes: WNL Neck: Yes: WNL Cardiovascular: Yes: Regular Rate and Rhythm, S1, S2 Respiratory: Yes: CTA Bilaterally Gastrointestinal: Yes: Normal Bowel Sounds, Soft Extremities: Yes: WNL Edema: No Labs: CBC, BMP 01/19/17 05:30 01/19/17 05:30 Assessment/Plan Assessment/Plan S/P Acute Respiratory Failure Uncontrolled hypertension Medication noncompliance AMS CHF Acute in Chronic Previously suspected Hypertensive emergency O2 as needed VTE prophylaxis Lasix as needed Transfer to [facility] for EPS studies and w/u for ischemic heart disease Would continue to hold VTE workup as I have a low clinical suspicion due to an alternate diagnosis and patient is clinically improving without specific VTE treatment DR MEA
--- NOTE | 2017-01-19 16:34 | DS ---
Physical Exam: SUBJECTIVE: Patient seen and examined at bedside. Had one episode of rapid heart beat. OBJECTIVE: Vital Signs Period Temp Pulse Resp BP Sys/Rosado Pulse Ox Last 24 Hr 98 F-98.9 F 63-91 18-18 109-160/71-96 95-100 PHYSICAL EXAM GENERAL: The patient is awake, alert, and fully oriented, in no acute distress. HEAD: Normal with no signs of trauma. EYES: PERRL, extraocular movements intact, sclera anicteric, conjunctiva clear. No ptosis. LUNGS: CTA HEART: Regular rate and rhythm, S1, S2 without murmur, rub or gallop. ABDOMEN: Soft, nontender, nondistended, normoactive bowel sounds, no guarding, no rebound EXTREMITIES: 2+ pulses, warm, well-perfused, no edema. NEUROLOGICAL: Cranial nerves II through XII grossly intact. Normal speech, gait not observed. Laboratory Results - last 24 hr 01/17/17 01/18/17 01/18/17 19:19 17:02 21:16 WBC RBC Hgb Hct MCV MCH MCHC RDW Plt Count MPV Sodium Potassium Chloride Carbon Dioxide Anion Gap BUN Creatinine Creat Clearance w eGFR POC Glucometer 134.82076 131.21059 131.98042 Random Glucose Calcium Phosphorus Magnesium Total Bilirubin AST ALT Alkaline Phosphatase Total Protein Albumin Opiates Screen Methadone Screen Barbiturate Screen Phencyclidine Screen Ur Amphetamines Screen MDMA (Ecstasy) Screen Benzodiazepines Screen Cocaine Screen U Marijuana (THC) Screen 01/18/17 01/19/17 01/19/17 23:30 05:30 05:30 WBC 4.9 RBC 3.99 L Hgb 10.5 L Hct 32.7 L MCV 82.1 MCH 26.3 MCHC 32.0 RDW 15.7 Plt Count 209 MPV 7.7 Sodium 135 L Potassium 4.0 Chloride 101 Carbon Dioxide 28 Anion Gap 6 L BUN 20 H D Creatinine 1.3 Creat Clearance w eGFR 56.90 POC Glucometer Random Glucose 89 Calcium 8.9 Phosphorus 2.8 Magnesium 1.9 Total Bilirubin 0.9 AST 20 ALT 33 D Alkaline Phosphatase 98 Total Protein 7.2 Albumin 3.3 L Opiates Screen Negative Methadone Screen Negative Barbiturate Screen Negative Phencyclidine Screen Negative Ur Amphetamines Screen Negative MDMA (Ecstasy) Screen Negative Benzodiazepines Screen Negative Cocaine Screen Negative U Marijuana (THC) Screen Positive HOSPITAL COURSE: Date of Admission:01/16/17 Date of Discharge: 01/19/17 ASSESSMENT/PLAN 56 year-old male with a PMH of HTN, CAD, diastolic heart failure, NIDDM, kidney stones, and current everyday smoker. Admitted for hypertensive emergency and respiratory failure secondary to acute on chronic diastolic heart failure. Hypertensive emergency --BP 251/163 on admission, in hypercarbic respiratory failure --BP better controlled on lisinopril, labetolol, nifedipine, hydralazine, HCTZ Acute on chronic diastolic heart failure --diuresed 30 pounds in 72 hours! --repeat echo pending --strict I&Os, daily weights --continue Lasix IV 40 daily Hypercarbic respiratory failure --intubated 01/16, extubated 7.31; satting well on room air Coronary artery disease --flat-trending troponins likely secondary to heart failure PSVT/NSVT --continued prolonged runs of NSVT --continue beta amber --keep K>4, Mg >2 --seen and evaluated by Dr. Benitez, plan is to transfer to [facility] for repeat ischemic evaluation and EPS Acute kidney injury, improved h/o kidney stones --renal function improving with diuresis --Cr 1.3 (<--1.6) NIDDM --on no home meds --Novolog sliding scale coverage Depression --continue Cymbalta F/E/N Fluids: PO intake adequate Electrolytes: replete as indicated Nutrition: sodium controlled DVT prophylaxis: subq heparin PT evaluation Daily PT Dispo: transfer tomorrow to [facility]. Full Code. Minutes to complete discharge: 35 Discharge Summary Reason For Visit: HYPERTENSIVE URGENCY Current Active Problems Acute coronary syndrome (Acute) Hypertensive emergency (Acute) Renal insufficiency (Acute) Condition: Fair - Instructions Referrals: Sebastian Guileln MD [Primary Care Provider] - - Home Medications Comprehensive Discharge Medication List: Ambulatory Orders Hydrochlorothiazide [Hctz] 25 mg PO DAILY 11/09/11 Lisinopril [Zestril] 40 mg PO DAILY 11/09/11 Tamsulosin HCl 0.4 mg PO DAILY 11/09/11 Duloxetine HCl [Cymbalta -] 60 mg PO DAILY 06/29/16 Furosemide 20 mg PO DAILY 06/29/16 Labetalol HCl 100 mg PO TID 06/29/16 Nifedipine ER [Procardia Xl -] 90 mg PO DAILY 06/29/16 Zolpidem Tartrate [Ambien] 10 mg PO HS 06/29/16 This patient is new to me today: No Emergency Visit: Yes ED Registration Date: 01/16/17 Care time: The patient presented to the Emergency Department on the above date and was hospitalized for further evaluation of their emergent condition. Critical Care patient: No - Discharge Referral Referred to [facility] Med P.C.: No
[2017-01-19] MEDS ORDERED: HEMOQUE TEST 1 EACH EACH ONE (16:48)
[2017-01-19] MEDS ORDERED: INSULIN (NOVOLOG) ASPART 100 UNITS/ML 10ML VIAL ONE (20:44)
[2017-01-19] MEDS: ATORVASTATIN CA 40 MG TABLET (FP) PO SCH (21:19)
[2017-01-20] MEDS: HEPARIN NA (PORCINE) 5,000 UNITS/ML 1ML VIAL SQ SCH ×3 (06:11→21:17)
[2017-01-20] MEDS: LABETALOL HCL 100 MG TABLET (FP) PO SCH ×3 (06:12→21:18)
[2017-01-20] MEDS: INSULIN SLIDING SCALE (NOVOLOG) 1 VIAL SQ SCH ×4 (06:12→21:18)
[2017-01-20 06:51] LABS: ANION GAP 8 (8-16); CALCIUM 8.7 mg/dL (8.5-10.1); CO2 28 mmol/L (21-32); GLUCOSE,RANDOM 99 mg/dL (74-106); MAGNESIUM 2.3 mg/dL (1.8-2.4)
[2017-01-20 06:53] LABS: CREATININE 1.5 mg/dL (0.7-1.3)
[2017-01-20] MEDS ORDERED: PT OWN MED DRAWER 7, Y5N ONE (08:37)
[2017-01-20] MEDS: ASPIRIN COATED 81 MG TABLET.EC PO SCH (09:20)
[2017-01-20] MEDS: PANTOPRAZOLE 40 MG TABLET (FP) PO SCH (09:20)
[2017-01-20] MEDS: POTASSIUM CHLORIDE TABS 20 MEQ TABLET.ER (FP) PO SCH (09:20)
[2017-01-20] MEDS: NIFEdipine E.R. 90 MG TABLET (FP) PO SCH (09:20)
[2017-01-20] MEDS: LISINOPRIL 20 MG TABLET (FP) PO SCH (09:20)
[2017-01-20] MEDS: DULoxetine HCL 30 MG CAPSULE.DR (FP) PO SCH (09:21)
[2017-01-20] MEDS: FUROSEMIDE 40 MG/4 ML INJECTABLE VIAL IVPUSH SCH (09:22)
--- NOTE | 2017-01-20 11:39 | PN ---
Progress Note, Physician History of Present Illness: seen and examined today in nad. no overnight events. no new complaints. - Current Medication List Current Medications: Active Medications Aspirin (Ecotrin -) 81 mg PO DAILY [facility] Last Admin: 01/20/17 09:20 Dose: 81 mg Atorvastatin Calcium (Lipitor -) 40 mg PO HS [facility] Last Admin: 01/19/17 21:19 Dose: 40 mg Duloxetine HCl (Cymbalta -) 60 mg PO DAILY [facility] Last Admin: 01/20/17 09:21 Dose: 60 mg Furosemide (Lasix -) 40 mg PO DAILY [facility] Heparin Sodium (Porcine) (Heparin -) 5,000 unit SQ TID [facility] Last Admin: 01/20/17 06:11 Dose: 5,000 unit Insulin Aspart (Novolog Vial Sliding Scale -) 1 vial SQ ACHS [facility] PRN Reason: Protocol Last Admin: 01/20/17 11:25 Dose: Not Given Labetalol HCl (Normodyne -) 200 mg PO TID [facility] Last Admin: 01/20/17 06:12 Dose: 200 mg Lisinopril (Prinivil) 40 mg PO DAILY [facility] Last Admin: 01/20/17 09:20 Dose: 40 mg Nifedipine (Procardia Xl -) 90 mg PO DAILY [facility] Last Admin: 01/20/17 09:20 Dose: 90 mg Pantoprazole Sodium (Protonix -) 40 mg PO DAILY [facility] Last Admin: 01/20/17 09:20 Dose: 40 mg Potassium Chloride (K-Dur -) 20 meq PO DAILY [facility] Last Admin: 01/20/17 09:20 Dose: 20 meq - Objective Vital Signs: Vital Signs Temperature 98.8 F 01/20/17 06:00 Pulse Rate 80 01/20/17 09:30 Respiratory Rate 18 01/20/17 09:30 Blood Pressure 135/100 01/20/17 09:30 O2 Sat by Pulse Oximetry (%) 98 01/19/17 21:00 Constitutional: Yes: Well Nourished, No Distress, Calm Eyes: Yes: WNL, Conjunctiva Clear, EOM Intact, PERRL HENT: Yes: WNL, Atraumatic, Normocephalic Neck: Yes: WNL, Supple, Trachea Midline Cardiovascular: Yes: WNL, Regular Rate and Rhythm, S1, S2. No: Bradycardia, Tachycardia, Pulse Irregular, Bruit, JVD, Gallop, Murmur, Rub, S3, S4, Varicosities Respiratory: Yes: WNL, Regular, CTA Bilaterally. No: Rales, Rhonchi, Wheezes Gastrointestinal: Yes: WNL, Normal Bowel Sounds, Soft. No: Distention, Tenderness Musculoskeletal: Yes: WNL Extremities: Yes: WNL Edema: No Peripheral Pulses WNL: Yes Peripheral Pulses: Left Doralis Pedis: 2+, Right Dorsalis Pedis: 2+ Integumentary: Yes: WNL Neurological: Yes: WNL, Alert, Oriented, Cran Nerves II-XII Intact ...Motor Strength: WNL Psychiatric: Yes: WNL, Alert, Oriented Labs: CBC, BMP 01/19/17 05:30 01/20/17 05:05 - ....Imaging Chest X-ray: Report Reviewed, Image Reviewed EKG: Report Reviewed, Image Reviewed Other: Report Reviewed, Image Reviewed (tele-nsr, pvcs, NSVT) Assessment/Plan IMP: Acute on chronic diastolic CHF due to uncontrolled chronic HTN, non-adherence with medications Hypertensive heart disease Non-obstructive CAD Mildly dilated aortic root PSVT and long runs of NSVT REC: Acute on chronic diastolic CHF: -overall euvolemic at this time -Cont current meds, BP improved still not at residential goal -Repeat echo w/ septum 2cm, overall normal EF -Suspect mild elevation in TnI due to CHF HTN heart disease: -due to chronic uncontrolled HTN -Cont current meds for now including STELLA-I with plan for close outpatient follow up Non-obstructive CAD: -Has had several caths over the years, all with non-obstructive disease -to be transferred to [facility] today where a repeat cath vs stress will be considered -Cont ASA and statin Dilated aortic root: -Long standing, stable at around 4cm. -Continue Labetalol and BP control PSVT/NSVT: symptomatic -NSVT up to 20 beats. -EF normal -Continue beta amber -Keep K+ >4, Mg2+ >2 -awaiting transfer to [facility] for repeat ischemic eval and EPS evaluation
--- NOTE | 2017-01-20 13:16 | PN ---
Progress Note (short form) - Note Progress Note: Patient seen and examined in the Telemetry. Overall appears better. No CP or SOB. Intake & Output 01/17/17 01/18/17 01/19/17 01/20/17 23:59 23:59 23:59 23:59 Intake Total 810 870 890 200 Output Total 3810 2800 850 Balance -3000 -1930 40 200 Weight 218 lb 14.704 oz 210 lb 8.663 oz 200 lb 205 lb Last Vital Signs Temp Pulse Resp BP Pulse Ox 98.8 F 80 18 135/100 98 01/20/17 06:00 01/20/17 09:30 01/20/17 09:30 01/20/17 09:30 01/19/17 21:00 Active Medications Aspirin (Ecotrin -) 81 mg PO DAILY [facility] Last Admin: 01/20/17 09:20 Dose: 81 mg Atorvastatin Calcium (Lipitor -) 40 mg PO HS [facility] Last Admin: 01/19/17 21:19 Dose: 40 mg Duloxetine HCl (Cymbalta -) 60 mg PO DAILY [facility] Last Admin: 01/20/17 09:21 Dose: 60 mg Furosemide (Lasix -) 40 mg PO DAILY [facility] Heparin Sodium (Porcine) (Heparin -) 5,000 unit SQ TID [facility] Last Admin: 01/20/17 06:11 Dose: 5,000 unit Insulin Aspart (Novolog Vial Sliding Scale -) 1 vial SQ ACHS [facility] PRN Reason: Protocol Last Admin: 01/20/17 11:25 Dose: Not Given Labetalol HCl (Normodyne -) 200 mg PO TID [facility] Last Admin: 01/20/17 06:12 Dose: 200 mg Lisinopril (Prinivil) 40 mg PO DAILY [facility] Last Admin: 01/20/17 09:20 Dose: 40 mg Nifedipine (Procardia Xl -) 90 mg PO DAILY [facility] Last Admin: 01/20/17 09:20 Dose: 90 mg Pantoprazole Sodium (Protonix -) 40 mg PO DAILY [facility] Last Admin: 01/20/17 09:20 Dose: 40 mg Potassium Chloride (K-Dur -) 20 meq PO DAILY [facility] Last Admin: 01/20/17 09:20 Dose: 20 meq Constitutional: Yes: Awake and alert, NAD Eyes: Yes: Conjunctiva Clear HENT: Yes: Atraumatic, Normocephalic Neck: Yes: Supple, Trachea Midline Cardiovascular: Yes: Regular Rate and Rhythm Respiratory: Yes: Few scattered rhonchi Gastrointestinal: Yes: Soft Genitourinary: Yes: Rubio removed Edema: No Neurological: Yes: Non-focal Labs: Laboratory Results - last 24 hr 01/19/17 01/19/17 01/20/17 16:54 21:00 05:05 Sodium 136 Potassium 4.0 Chloride 100 Carbon Dioxide 28 Anion Gap 8 BUN 30 H D Creatinine 1.5 H POC Glucometer 105.54890 124.37492 Random Glucose 99 Calcium 8.7 Magnesium 2.3 D 01/20/17 06:03 Sodium Potassium Chloride Carbon Dioxide Anion Gap BUN Creatinine POC Glucometer 122.28434 Random Glucose Calcium Magnesium Assessment/Plan Acute Respiratory Failure Uncontrolled hypertension Medication noncompliance AMS Previously suspected Hypertensive emergency (?) AMS due to toxic ingestion O2 as needed VTE prophylaxis Lasix PO Glycemic For transfer to tertiary care for ischemic workup Dr Dillard
[2017-01-20 20:32] VITALS: BP 125/92; PULSE 75; TEMP 98.7
[2017-01-20] MEDS ORDERED: HEMOQUE TEST 1 EACH EACH ONE (21:09)
[2017-01-20] MEDS: ATORVASTATIN CA 40 MG TABLET (FP) PO SCH (21:18)
[2017-01-21] MEDS ORDERED: FUROSEMIDE 40 MG TABLET (FP) PO SCH (10:00)
== END 2017-01-20 21:52 | disposition short-term general hospital (02) | DRG 133 ==
LOC: JER 08:57 → JERBED 10:30 → JICU 12:17 → J2W 01-18 19:49
PROVIDERS: ADMIT Internal Medicine; ATTEND Nurse Practitioner Acute Care
PROC: 0BH17EZ Insertion of Endotracheal Airway into Trachea, Via Natural or Artificial Opening (ICD-10-PCS; principal; 2017-01-16)
PROC: 5A1945Z Respiratory Ventilation, 24-96 Consecutive Hours (ICD-10-PCS; 2017-01-16)
DX: J96.01 Acute respiratory failure with hypoxia (principal); I34.0 Nonrheumatic mitral (valve) insufficiency; I25.10 Atherosclerotic heart disease of native coronary artery without angina pectoris; F17.210 Nicotine dependence, cigarettes, uncomplicated; R68.0 Hypothermia, not associated with low environmental temperature; R00.0 Tachycardia, unspecified; I16.1 Hypertensive emergency; I11.0 Hypertensive heart disease with heart failure; I50.33 Acute on chronic diastolic (congestive) heart failure; N20.0 Calculus of kidney; F12.10 Cannabis abuse, uncomplicated; F32.9 Major depressive disorder, single episode, unspecified; D64.9 Anemia, unspecified; I24.9 Acute ischemic heart disease, unspecified; Z91.14 Patient's other noncompliance with medication regimen; I67.4 Hypertensive encephalopathy; E11.65 Type 2 diabetes mellitus with hyperglycemia; I47.1 Supraventricular tachycardia; I77.819 Aortic ectasia, unspecified site; J96.02 Acute respiratory failure with hypercapnia; N28.9 Disorder of kidney and ureter, unspecified; N40.0 Benign prostatic hyperplasia without lower urinary tract symptoms
CPT/HCPCS: 36415; 36600; 71010-TC; 80048; 80053; 80307; 81003; 81015; 82803; 83036; 83605; 83735; 83880; 84100; 84443; 84484; 85025; 85027; 86850; 86900; 86901; 87040; 87086; 87186; 93005; 93010; 93306-TC; 93970-TC; 94002; 97116-GP; 97161-GP; 99285-25; J1644

== ENCOUNTER 2017-09-19 09:54 | Day surgery (SDC) | payer OTHER ==
[2017-09-16 16:42] VITALS: BMI 27.3
[2017-09-19] MEDS ORDERED: PROPOFOL 20 ML ONE ×2 (10:15)
--- NOTE | 2017-09-19 10:58 | PROC ---
Endoscopy Procedure Endoscopy procedure completed. Please see scanned procedure report.
[2017-09-19 11:03] VITALS: TEMP 97.7
[2017-09-19 12:48] VITALS: BP 124/64; PULSE 68
--- NOTE | 2017-09-21 09:27 | PATH ---
Surgical Pathology Report Patient Name: LIA MESA [facility] [place]. Rec. #: [id number] /Age/Gender: 1960 (Age: 57) / M Account: [id number] Location: U-ENDOSCOPY Taken: 09/19/2017 Received: 09/19/2017 Reported: 09/21/2017 Physicians: Yunior Lr M.D. Specimen(s) Received A: ASCENDING COLON POLYP B: BX DESCENDING COLON POLYP #1 C: BX DESCENDING COLON POLYP #2 Clinical History Preoperative diagnosis: Colon screening, adenoma surveillance Postoperative diagnosis: Ascending and descending colon polyps Final Diagnosis A. COLON, ASCENDING, BIOPSY: TUBULAR ADENOMA. B. COLON, DESCENDING POLYP #1, BIOPSY: TUBULAR ADENOMA. C. COLON, DESCENDING POLYP #2, BIOPSY: HYPERPLASTIC POLYP. Electronically Signed Tony Davidson M.D. Gross Description A. Received in formalin, labeled "biopsy ascending colon polyp" is a prasad, irregular portion of soft tissue measuring 0.4 cm. in greatest dimension. The specimen is submitted in toto in one cassette. B. Received in formalin, labeled "biopsy descending colon polyp #1" is a prasad, irregular portion of soft tissue measuring 0.3 cm. in greatest dimension. The specimen is submitted in toto in one cassette. C. Received in formalin, labeled "biopsy descending colon polyp #2" are 2 prasad, irregular portions of soft tissue measuring 0.2 and 0.4 cm. in greatest dimension. The specimens are submitted in toto in one cassette. DL/09/19/2017 saudi09/19/2017
== END 2017-09-19 12:48 | disposition home or self-care (01) ==
LOC: JASU-ENDO 09:54
PROVIDERS: ATTEND Internal Medicine Gastroenterology
PROC: 0DBM8ZX Excision of Descending Colon, Via Natural or Artificial Opening Endoscopic, Diagnostic (ICD-10-PCS; 2017-09-19)
PROC: 0DBK8ZX Excision of Ascending Colon, Via Natural or Artificial Opening Endoscopic, Diagnostic (ICD-10-PCS; principal; 2017-09-19 11:00)
DX: Z12.11 Encounter for screening for malignant neoplasm of colon (principal); Z86.010 Personal history of colon polyps; D12.2 Benign neoplasm of ascending colon; D12.4 Benign neoplasm of descending colon
CPT/HCPCS: 88305-TC

== ENCOUNTER 2018-01-09 13:36 | Inpatient (IN) | payer OTHER ==
--- NOTE | 2018-01-09 14:22 | PDOC ---
History of Present Illness - General Chief Complaint: Respiratory Stated Complaint: Shortness of Breath Time Seen by Provider: 01/09/18 13:47 History Source: Patient - History of Present Illness Initial Comments: 01/09/18 14:14 Pt is a 57 yo male with PMH of aortic aneurysm, HTN, stent in L kidney, BPH presenting to ED by ambulance with complaints of SOB. He started feeling SOB yesterday but he had a "bad episode" today while he was in the kitchen. He feels SOB when he lies down flat, sitting up makes him feel better. He has been sleeping on his side and elevating his head. SOB is associated with a substernal chest pain that radiates to the back "right behind where the pain is in the front". He also noticed swelling of his legs bilaterally which wasn't there before. He also admits to cough productive of yellow phlegm. He also has some abdominal pain and says "my innie became an outie". No N/V/D, fever, chills , dysuria, changes in vision, weakness, numbness, tingling, falls, LOC. Patient states his BP is normally 200/180 PCP: Dr. Guillen Gluing Machine Feeder: Molina Urologist: Alvin PMH: see hpi PSH: Stent placement in L kidney Meds: carvelilol 25, amlodipine 10, lisinopril 20, nifedipine 60, HCTZ 25, tamsulosin 0.4, Ambien 10, duloxetine 60 Allergies: NKDA Social: 1/3ppd, marijuana use, social alcohol use. Denies iv drug or illicit drug use 01/09/18 17:43 01/09/18 18:07 Past History - Past Medical History Allergies/Adverse Reactions: Allergies Allergy/AdvReac Type Severity Reaction Status Date / Time adhesive tape Allergy Verified 01/16/17 08:58 Home Medications: Ambulatory Orders Lisinopril [Zestril] 20 mg PO DAILY 11/09/11 Tamsulosin HCl 0.4 mg PO DAILY 11/09/11 Duloxetine HCl [Cymbalta -] 60 mg PO DAILY 06/29/16 Nifedipine ER [Procardia XL -] 60 mg PO DAILY 06/29/16 Aspirin Coated [Ecotrin -] 81 mg PO DAILY #30 tab 01/19/17 Amlodipine Besylate [Norvasc -] 10 mg PO DAILY 09/16/17 Carvedilol [Coreg -] 25 mg PO DAILY 09/16/17 Cholecalciferol (Vitamin D3) [Vitamin D3] 50,000 unit PO WEEKLY 09/16/17 Zolpidem Tartrate [Ambien] 10 mg PO PRN PRN 09/16/17 Cholecalciferol (Vitamin D3) [Vitamin D3] 50,000 unit PO WEEKLY 01/09/18 Hydrochlorothiazide [Hctz -] 25 mg PO DAILY 01/09/18 Anemia: No Asthma: No Cancer: No Cardiac Disorders: Yes (A.FIB FROM AORTIC ANEURYSM.) CVA: No COPD: No CHF: No Dementia: No Diabetes: No GI Disorders: Yes (COLON ADENOMA, NAUSEA) Disorders: Yes (BPH) HTN: Yes Hypercholesterolemia: No Kidney Stones: Yes Liver Disease: No Seizures: No Thyroid Disease: No - Surgical History Abdominal Surgery: No Appendectomy: No Cardiac Surgery: No Cholecystectomy: No GI Surgery: (KIDNEY SX) Lung Surgery: No Neurologic Surgery: No Orthopedic Surgery: No - Suicide/Smoking/Psychosocial Hx Smoking Status: Yes Smoking History: Current every day smoker Have you smoked in the past 12 months: Yes Number of Cigarettes Smoked Daily: 8 Information on smoking cessation initiated: Yes 'Breaking Loose' booklet given: 01/09/18 Hx Alcohol Use: Yes (SOCIALLY) Drug/Substance Use Hx: No Substance Use Type: Marijuana Hx Substance Use Treatment: No *Physical Exam - Vital Signs Last Vital Signs Temp Pulse Resp BP Pulse Ox 98.6 F 87 32 H 162/122 100 01/09/18 13:50 01/09/18 13:50 01/09/18 13:50 01/09/18 13:50 01/09/18 13:50 - Physical Exam General Appearance: Yes: Nourished, Appropriately Dressed, Other (Pt sitting in Bed on 2L NC. at bedside) HEENT: positive: EOMI, WILBERT. negative: Scleral Icterus (R), Scleral Icterus (L) , Pharyngeal Erythema, Tonsillar Exudate Neck: positive: Trachea midline, Supple. negative: Carotid bruit Respiratory/Chest: positive: Labored Respiration, Decreased Breath Sounds (In L and R lower lung arboleda bilaterally). negative: Accessory Muscle Use, Stridor, Wheezing Cardiovascular: positive: Regular Rhythm, Gallop/S4. negative: Edema, JVD Vascular Pulses: Carotid (R): 2+, Carotid (L): 2+, Dorsalis-Pedis (R): 2+, Doralis-Pedis (L): 2+ Gastrointestinal/Abdominal: positive: Normal Bowel Sounds, Hernia (umbilical. tender). negative: Tender, Pulsatile Mass, Protuberent, Guarding, Rebound Musculoskeletal: positive: Normal Inspection. negative: CVA Tenderness Extremity: positive: Normal Capillary Refill, Pedal Edema (Bilateral pitting edema up to knees). negative: Cyanosis Integumentary: positive: Normal Color, Dry, Warm Neurologic: positive: court orderly II-XII NML intact, Fully Oriented, Alert, Normal Mood/ Affect, Normal Response, Motor Strength 10/22 ED Treatment Course - LABORATORY CBC & Chemistry Diagram: 01/09/18 14:58 01/09/18 14:11 Medical Decision Making - Medical Decision Making 01/09/18 17:24 Pt is a 57 yo male with PMH of aortic aneurysm, HTN, BPH presenting to ED with complaints of SOB, orthopnea, bilateral leg swelling DDX: CHF, COPD, Aortic dissection, ARF, NH, PE CBC, CMP, Troponin, BNP, CXR ordered to check for ACS or CHF. Aortic dissection included on list because patient was complaining of chest pain radiating to the back and hx of aortic aneurysm. Patient was complaining of SOB, placed on BiPAP, reported alleviation yet feels short of breath in the supine position. BNP: 3500 Trop: 0.25 CXR: pulmonary vascular congestion, no effusions- CHF EKG: nsr. compared to last year, new T wave inversions in V5 and V6 Dr. Rooney office called [address] Eugene called cell phone. Placed as consult Diastolic BP still in the 120s. patient saturating 99-100 on BiPAP HR 88. Patient given Lasix 40 IV. Labetalol 20 IV ordered by inpatient team. Because diastolic BP elevated, elevated troponin with new EKG changes patient admitted to ICU *DC/Admit/Observation/Transfer Diagnosis at time of Disposition: CHF (congestive heart failure), Hypertensive urgency - Discharge Dispostion Condition at time of disposition: Stable Decision to Admit order: Yes - Referrals Referrals: Sebastian Guillen MD [Primary Care Provider] - - Patient Instructions - Post Discharge Activity
--- NOTE | 2018-01-09 14:52 | PDOC ---
Attending Attestation - Resident Resident Name: JudithAria - ED Attending Attestation I have performed the following: I have examined & evaluated the patient, The case was reviewed & discussed with the resident, I agree w/resident's findings & plan, Exceptions are as noted - HPI HPI: 01/09/18 14:51 The patient is a 57 year old male with a signfiicant past medical history of enlarged Aorta, HTN, stent in L kidney, BPH who presents to ED by ambulance with complaints of shortness of breath with cough and associated chest pain since yesterday. Pt ntoes that he has been having chronically worsening SOB for the past year with decreased excercise tolerance, but 2 days ago, he was cooking when he felt palpitations and chest tightness/pressure while he was cooking. Sinc then he has noted worsening walker to th epoint where he can barely do anything without feeling sob. pt endorses cough productive of yellowish sputum, orthopnea, denies any fever/chills, nv. pt endorses intermitent palpitations (feeling like it is irregular) associated with mild lightheadedness. pt also endorses b/l LE edema the past 2 days with mild pain in his RLE. PCP: Dr. Guillen Aviation Technician Aircraft: [employer] Urologist: Alvin PSH: Stent placement in L kidney Social: 1/3ppd, marijuana use, social alcohol use. Denies iv drug or illicit drug use Allergies: NKDA - Physicial Exam PE: 01/09/18 16:48 GENERAL: The patient is awake, alert, and fully oriented, tachypneic, speaing in short segments HEAD: Normocephalic, atraumatic. EYES: extraocular movements intact, sclera anicteric, conjunctiva clear. ENT: Normal voice, Moist mucous membranes. NECK: Normal range of motion, supple LUNGS: rales b/l at bases HEART: Regular rate and rhythm, without murmur, rub or gallop. ABDOMEN: Soft, nontender, No guarding, no rebound.No CVA tenderness EXTREMITIES: Normal range of motion, +b/l +! pitting edema, mild L calf tenderness NEUROLOGICAL: No facial assymetry, Normal speech, PSYCH: Normal mood, normal affect. SKIN: Warm, Dry, normal turgor, - Critical Care Time Total Critical Care Time: 40 Critical Care Statement: The care of this patient involved high complexity decision making to prevent further life threatening deterioration of the patient 's condition and/or to evaluate & treat vital organ system(s) failure or risk of failure. - Medical Decision Making 01/09/18 16:49 suspect chf consider acs, possible pAfib pts cxr suggestive of congestion pt started on bipap with improvement of his respiration ekg noted for lvg, non ischemic will admit for further management and echo will discuss with dr. walters 01/09/18 17:[address] Ray agree with admission for further management stable for tele case dw dr. walters - agree with diuresis Case discussed in detail with admitting physician including history, physical exam and ancillary studies. Admitting physician has assumed care for the patient, will follow all pending diagnostics and will complete the evaluation and treatment. 01/09/18 17:59 trop elevated to .25 pt still mildly tachypneic will admit to the ICU Heart Score/ECG Review - ECG Impressions Comment:: 01/09/18 16:49 Twelve-lead EKG was performed and reviewed by me. There is normal sinus rhythm with a normal rate. rate of 90 lvh with repolariztion abnormality prolonged qt
[2018-01-09 15:12] LABS: BASO % 0.9 % (0-2.0); EOS % 2.1 % (0-4.5); HEMATOCRIT 29.6 % (35.4-49); HEMOGLOBIN 9.5 GM/dL (11.7-16.9); LYMPH % 16.5 % (8-40); MCH 27.1 pg (25.7-33.7); MEAN CELL VOLUME 84.7 fl (80-96); MONO % 8.3 % (3.8-10.2); NEUT % 72.2 % (42.8-82.8); PLATELET COUNT 172 K/MM3 (134-434); RBC 3.49 M/mm3 (4.00-5.60); WHITE BLOOD COUNT 5.1 K/mm3 (4.0-10.0)
[2018-01-09 15:39] LABS: ALBUMIN 3.4 g/dl (3.4-5.0); ALK PHOS 87 U/L (45-117); ANION GAP 7 (8-16); BILIRUBIN,TOTAL 0.9 mg/dL (0.2-1.0); BLOOD UREA NITROGEN 21 mg/dL (7-18); CALCIUM 8.4 mg/dL (8.5-10.1); CHLORIDE 112 mmol/L (98-107); CO2 23 mmol/L (21-32); CREATININE 1.4 mg/dL (0.7-1.3); GLUCOSE,RANDOM 85 mg/dL (74-106); POTASSIUM 4.2 mmol/L (3.5-5.1); SGOT/AST 15 U/L (15-37); SGPT/ALT 25 U/L (12-78); SODIUM 142 mmol/L (136-145); TOT PROT 7.2 g/dl (6.4-8.2)
[2018-01-09 16:24] LABS: N-TERMINAL BNP 3524.86 pg/ml (5-125)
[2018-01-09] MEDS ORDERED: FUROSEMIDE 100 MG/10 ML INJECTABLE VIAL IVPB ONE (17:11)
[2018-01-09] MEDS ORDERED: FUROSEMIDE 40 MG/4 ML INJECTABLE VIAL ONE (17:42)
[2018-01-09] MEDS ORDERED: LABETALOL HCL 5 MG/1 ML (100MG/20 ML VIAL) IVPUSH ONE (17:45)
[2018-01-09] MEDS ORDERED: LABETALOL HCL 5 MG/1 ML (200MG/40ML VIAL) IVPB ONE (17:48)
[2018-01-09] MEDS ORDERED: ASPIRIN 81 MG CHEWABLE TABLETS PO ONE (17:59)
--- NOTE | 2018-01-09 18:06 | HP ---
Admitting History and Physical - Primary Care Physician PCP: Dr. Rodriguez - Admission Chief Complaint: shortness of breath History of Present Illness: 56 y/o man with hx of poor compliance, HTN, CAD, MR, nephrolithiasis, and mildly dilated aorta who presented to the ED w/ progressively worsening shortness of breath. He endorses worsening dyspnea, orthopnea, and b/l LE edema x 1 month. In addition, he's also having chronic productive cough and pain around his belly button for a month. He admitted not being compliant with his medications especially lasix 40mg daily. Patient was intubated in the ICU for CHF exacerbation in 01/2017 and transferred to [facility] from [facility] for repeat ischemic evaluation and EPS. Denies fever, chills, dyspnea, constipation, diarrhea, weakness, appetite change. History Source: Patient, Family Member Limitations to Obtaining History: No Limitations - Past Medical History Cardiovascular: Yes: CAD, CHF (diastolic; moderately dilated LV), HTN Renal/: Yes: Renal Calculi Heme/Onc: Yes: Anemia Psych: Yes: Depression - Past Surgical History Additional Past Surgical History: urethral stent - Smoking History Smoking history: Current every day smoker Have you smoked in the past 12 months: Yes Aproximately how many cigarettes per day: 8 - Alcohol/Substance Use Hx Alcohol Use: Yes (SOCIALLY) History of Substance Use: reports: Marijuana - Social History ADL: Independent Occupation: currently unemployed Home Medications - Allergies Allergies/Adverse Reactions: Allergies Allergy/AdvReac Type Severity Reaction Status Date / Time adhesive tape Allergy Verified 01/16/17 08:58 - Home Medications Home Medications: Ambulatory Orders Lisinopril [Zestril] 20 mg PO DAILY 11/09/11 Tamsulosin HCl 0.4 mg PO DAILY 11/09/11 Duloxetine HCl [Cymbalta -] 60 mg PO DAILY 06/29/16 Nifedipine ER [Procardia XL -] 60 mg PO DAILY 06/29/16 Aspirin Coated [Ecotrin -] 81 mg PO DAILY #30 tab 01/19/17 Amlodipine Besylate [Norvasc -] 10 mg PO DAILY 09/16/17 Carvedilol [Coreg -] 25 mg PO DAILY 09/16/17 Cholecalciferol (Vitamin D3) [Vitamin D3] 50,000 unit PO WEEKLY 09/16/17 Zolpidem Tartrate [Ambien] 10 mg PO PRN PRN 09/16/17 Cholecalciferol (Vitamin D3) [Vitamin D3] 50,000 unit PO WEEKLY 01/09/18 Hydrochlorothiazide [Hctz -] 25 mg PO DAILY 01/09/18 Review of Systems - Review of Systems Constitutional: reports: No Symptoms Eyes: reports: No Symptoms HENT: reports: No Symptoms Neck: reports: No Symptoms Cardiovascular: reports: Chest Pain, Edema, Shortness of Breath Respiratory: reports: Cough, Exercise Intolerance, Orthopnea, SOB on Exertion Gastrointestinal: reports: Abdominal Pain (periumbilical). denies: Constipation , Diarrhea Genitourinary: reports: No Symptoms Physical Examination Vital Signs: Vital Signs Temperature 98.6 F 01/09/18 13:50 Pulse Rate 87 01/09/18 13:50 Respiratory Rate 32 H 01/09/18 13:50 Blood Pressure 162/122 01/09/18 13:50 O2 Sat by Pulse Oximetry (%) 97 01/09/18 16:06 Constitutional: Yes: Moderate Distress Eyes: Yes: Conjunctiva Clear Cardiovascular: Yes: Regular Rate and Rhythm, S1, S2. No: JVD, Murmur Respiratory: Yes: Diminished (b/l bases), Rhonchi (b/l upper lung arboleda) Gastrointestinal: Yes: Normal Bowel Sounds, Soft, Tenderness (periumbilical). No: Distention Edema: Yes Edema: LLE: 2+, RLE: 2+ Peripheral Pulses WNL: Yes Neurological: Yes: Alert, Oriented, Cran Nerves II-XII Intact Labs: CBC, BMP 01/09/18 14:58 01/09/18 14:11 Imaging - Results X-ray: Image Reviewed EKG: Report Reviewed, Image Reviewed Assessment/Plan 56 yo m h/o refractory HTN, ?asthma, NIDDM, kidney stone, aortic aneurysm, HFpEF admitted to ICU for acute CHF exacerbation. 1. HFrEF: h/o HFpEF now progressed to HFrEF per ECHO in 2017. Exacerbation most likely 2/2 meds non-compliant. Daily weights, strict I/O, fluid restriction, lasix 40mg x 1 in ED, cont. it daily. Repeat ECHO. 2. Hypertensive emergency: DBP > 125 + elevated Cr and troponemia. also likely 2 /2 non-compliance. Will cont. diuresis with lasix and cont. all home BP medications. If worsens, start labetalol gtt. 3. Acute on chronic hypoxemic respiratory failure: 2/2 effusion. cont. diuresis and NIV support. 4. Elevated creatinine: ~1.5 since and normal prior to 01/2017. ? cardiorenal type 1 on type 2, cont. to treat CHF exacerbation. if not improved, will do renal workup 5. Troponemia: likely chronically elevated 2/2 HF, but r/o ACS, cycle trop to peak 6. Prolonged QTc: avoid QT prolonging agents 7. Verónica-umbilical pain: diffusely tender around umbilicus for months. CTAP r/o herniation 8. h/o PSVT/NSVT: stable, keep Mg2+ > 2 and K+ > 4, cont. beta-amber 9. NIDDM: controlled off meds, cont. to monitor glc 10. Depression: cont. Cymbalta 11. BPH: cont. tamsulosin NPO due to bipap DVT prophylaxis: subq heparin Dispo: ICU monitoring Jonnathan Hernandez PGY3 [phone] Visit type - Emergency Visit Emergency Visit: Yes Care time: The patient presented to the Emergency Department on the above date and was hospitalized for further evaluation of their emergent condition. - New Patient This patient is new to me today: Yes Date on this admission: 01/09/18 - Critical Care Critical Care patient: Yes Total Critical Care Time (in minutes): 35 Critical Care Statement: The care of this patient involved high complexity decision making to prevent further life threatening deterioration of the patient 's condition and/or to evaluate & treat vital organ system(s) failure or risk of failure. Hospitalist Screening - Colonoscopy Questionnaire Colonoscopy Questionnaire: Colonoscopy Questionnaire - Patient: 50 - 75 years old and never had a screening colonoscopy: Unknown History of colon or rectal polyps, or CA: Unknown History of IBD, Crohn's disease or UC: Unknown History of abdominal radiation therapy as a child: Unknown - Relative: 1 with colon or rectal CA, or polyps at age 60 or younger: Unknown Colon or rectal CA diagnosed at age 45 or younger: Unknown Multiple relatives with colon or rectal CA: Unknown - Outcome: Screening Result: Negative Screen
--- NOTE | 2018-01-09 18:14 | CONSULT ---
Consultation: REQUESTING PROVIDER: CONSULT REQUEST: We have been asked to medically evaluate this patient for ( specify). HISTORY OF PRESENT ILLNESS: This is a 56 y/o M smoker with PMH of HCM (previously evaluated by EP for ICD/ pacemakr), CHF (moderately reduced LV+ RV EF), NSVT, uncontrolled HTN (usually 170 systolic due to med noncompliance), nonobstructive CAD, MR, nephrolithiasis , and mildly dilated aorta, who presented to the ED due to sob. Patient reports worsening sob, orhtopnea, b/l LE edema, loss of appetite, cough productive of yellow sputum, palpitations since tuesday. He also reports one episode on midsternal CP radiating to back over the weekend while he was cooking, that resolved spontaneously in a few minutes. He has been noncompliant with any of his BP medication or low Na diet but does measure his BP on a daily basis, with average value 170's systolic. He last saw a pediatrics physician 6 mo ago and had not followed up with EP since last admission a year ago. In the ED he was found to be clinically vol overloaded, with congestion on CXR and LE edema. His BNP was above baseline, however his trop and creat, thought elevated was at baseline. He was satting well on NC but was initially described as tachypneic so was placed on bipap and given 20 labetalol iv. He proceeded to remove his bypap and tolerated NC. He currently denies palpitations, sob or cp. He is resting comfortably and satting 100% on 5L NC w/o tachypnea/accessory muscle use. REVIEW OF SYSTEMS: CONSTITUTIONAL: Absent: fever, chills HEENT: Absent: rhinorrhea, nasal congestion, throat pain CARDIOVASCULAR: Absent: syncope, lightheadedness RESPIRATORY: Absent: wheezing, stridor, hemoptysis GASTROINTESTINAL: Absent: abdominal pain, abdominal distension, diarrhea, constipation, melena, hematochezia GENITOURINARY: Absent: dysuria MUSCULOSKELETAL: Absent: back pain, neck pain SKIN: Absent: rash, itching, pallor HEMATOLOGIC/IMMUNOLOGIC: Absent: easy bleeding, easy bruising ENDOCRINE: Absent: unexplained weight gain, unexplained weight loss, heat intolerance, cold intolerance NEUROLOGIC: Absent: headache, focal weakness or paresthesias PSYCHIATRIC: Absent: anxiety, depression PHYSICAL EXAMINATION Vital Signs - 24 hr 01/09/18 01/09/18 13:50 16:06 Temperature 98.6 F Pulse Rate 87 Respiratory 32 H Rate Blood Pressure 162/122 O2 Sat by Pulse 100 97 Oximetry (%) GENERAL: Awake, alert, and fully oriented, in no acute distress. HEAD: Normal with no signs of trauma. EYES: Pupils equal, round and reactive to light, extraocular movements intact, sclera anicteric, conjunctiva clear. fundoscopic exam reveals poor view. EARS, NOSE, THROAT: Moist mucous membranes. NECK: +JVD at 45 degree recline, + hepatojugular reflex LUNGS: diffuse b/l ronchi up to midlung HEART: Regular rate and rhythm with premature beats, S1 and S2 ABDOMEN: Soft, nontender, not distended, normoactive bowel sounds, no guarding, no rebound, no masses. MUSCULOSKELETAL: No CVA tenderness. UPPER EXTREMITIES: 2+ pulses, warm, well-perfused. LOWER EXTREMITIES: 2+ pulses, warm, well-perfused. No calf tenderness. 2+ pitting edema at b/l ankles NEUROLOGICAL: Cranial nerves II-XII grossly intact. Normal speech. Normal gait. PSYCHIATRIC: Cooperative. Good eye contact. Appropriate mood and affect. SKIN: Warm, dry Laboratory Results - last 24 hr 01/09/18 01/09/18 01/09/18 14:11 14:58 14:58 WBC 5.1 RBC 3.49 L Hgb 9.5 L Hct 29.6 L MCV 84.7 MCH 27.1 MCHC 32.0 RDW 16.0 H Plt Count 172 MPV 8.0 Absolute Neuts (auto) 3.7 Neutrophils % 72.2 Lymphocytes % 16.5 Monocytes % 8.3 Eosinophils % 2.1 Basophils % 0.9 Nucleated RBC % 0 Sodium 142 Potassium 4.2 Chloride 112 H D Carbon Dioxide 23 Anion Gap 7 L BUN 21 H Creatinine 1.4 H Creat Clearance w eGFR 52.05 Random Glucose 85 Calcium 8.4 L Total Bilirubin 0.9 AST 15 D ALT 25 D Alkaline Phosphatase 87 Troponin I 0.25 H B-Natriuretic Peptide 3524.86 H Total Protein 7.2 Albumin 3.4 Active Medications Generic Name Dose Route Start Last Admin Trade Name Freq PRN Reason Stop Dose Admin Chlorhexidine Gluconate 1 applic 01/09/18 22:00 Hibiclens For Decolonization - TP HS HONEY Heparin Sodium (Porcine) 5,000 unit 01/09/18 22:00 Heparin - SQ TID [facility] Mupirocin 1 applic 01/09/18 22:00 Bactroban Ointment (For Decolonization) - NS 01/14/18 21:59 BID [facility] ASSESSMENT/PLAN: This is a 56 y/o M smoker with PMH of HCM (previously evaluated by EP for ICD/ pacemakr), CHF (moderately reduced LV+ RV EF), NSVT, uncontrolled HTN (usually 170 systolic due to med noncompliance), nonobstructive CAD, MR, nephrolithiasis , and mildly dilated aorta, who presented to the ED due to sob. Acute on chronic CHF exacerbation in setting of HCM and uncontrolled HTN Hypertensive urgency CKD -clinically vol overloaded; cxr and Bnp 3500 noted (baseline 1999). Strain on EKG in lateral leads -patient preload dependant; diurese carefully 40 IV lasix -patient BP at home baseline since he is med noncompliant, creat and trop elevated but at baseline -start with home PO BP meds (HCTZ 25 d, nifedipine 60 D, lisinopril 20 d, coreg 12.5 BID, Norvasc 10 d), if BP remains in urgency range, can give extra dose of PO meds or start Nitro gtt. Avoid dropping pressure too much below baseline to avoid cerebral ischemia -Respiratory status is stable on 5L NC. Keep High flow nasal cannula at bedsite if patient desats -asa 81 -TTE -TSH, a1c, lipid panel -tele monitoring -daily cxr -cardio consult -needs EP eval for ICD Smoker -cessation counseling -nicontine patch PLAN DISCUSSED WITH DR DICKSON Dispo: We will continue to follow the patient. Thank you for this consultative opportunity. Problem List - Problems (1) HOCM (hypertrophic obstructive cardiomyopathy) Code(s): I42.1 - OBSTRUCTIVE HYPERTROPHIC CARDIOMYOPATHY (2) Acute CHF (congestive heart failure) Code(s): I50.9 - HEART FAILURE, UNSPECIFIED (3) CHF (congestive heart failure) Code(s): I50.9 - HEART FAILURE, UNSPECIFIED Qualifiers: Qualified Code(s): I50.9 - Heart failure, unspecified (4) DVT prophylaxis Code(s): YTG7937 - (5) Hypertensive urgency Code(s): I10 - ESSENTIAL (PRIMARY) HYPERTENSION (6) Nephrolithiasis Code(s): N20.0 - CALCULUS OF KIDNEY (7) Renal insufficiency Code(s): N28.9 - DISORDER OF KIDNEY AND URETER, UNSPECIFIED Visit type - Emergency Visit Emergency Visit: Yes ED Registration Date: 01/09/18 Care time: The patient presented to the Emergency Department on the above date and was hospitalized for further evaluation of their emergent condition. - New Patient This patient is new to me today: Yes Date on this admission: 01/09/18 - Critical Care Critical Care patient: Yes Total Critical Care Time (in minutes): 45 Critical Care Statement: The care of this patient involved high complexity decision making to prevent further life threatening deterioration of the patient 's condition and/or to evaluate & treat vital organ system(s) failure or risk of failure.
[2018-01-09] MEDS ORDERED: amLODIPine BESYLATE 10 MG TABLET (FP) PO SCH (18:30)
[2018-01-09] MEDS ORDERED: HYDROCHLOROTHIAZIDE 25 MG TABLET (FP) PO SCH (18:30)
--- NOTE | 2018-01-09 18:35 | PN ---
Teaching Attending Note Name of Resident: Jonnathan Hernandez ATTENDING PHYSICIAN STATEMENT I saw and evaluated the patient. I reviewed the resident's note and discussed the case with the resident. I agree with the resident's findings and plan as documented with exceptions below. SUBJECTIVE: 57 yom with PMHx of HTN, non compliant with medications, LVH, recurrent diastolic HF from non compliance, last admitted in 09/2017 with the same, when was transferred to [facility] with reportedly neg cardiac cath, also similar presentation in 06/2016 when was intubated and on labetalol drip, also with Mildly dilated aort (4-4.1 cm reportedly), ?NIDDM, kidney stones s/p stent placement, comes with progressive shortness of breath over the last month, more in the last week, with orthopnea/PND, leg swelling last night. This AM, felt chest tightness and felt couldn't breath so came to ED. His symptoms progressively eased after being placed on bipap, but still short of breath. Denies any chest pain. at bedside confirms non compliance with medications at home. 12 point ROS done, also positive for cough with non productive sputum but no fever, chills otherwise. OBJECTIVE: Vital Signs Period Temp Pulse Resp BP Sys/Rosado Pulse Ox Last 24 Hr 98.6 F 87 32 162/122 97-100 Intake & Output 01/06/18 01/07/18 01/08/18 01/09/18 23:59 23:59 23:59 23:59 Weight 225 lb GENERAL: Awake, alert, tachypneic, some use of acessory muscles of respiration HEAD: Normal with no signs of trauma. EYES: Pupils equal, round and reactive to light, extraocular movements intact, sclera anicteric, conjunctiva clear. EARS, NOSE, THROAT: Ears normal, nares patent, oropharynx clear without exudates. Moist mucous membranes. NECK: neck vein distension LUNGS: diminshed breath sounds all over more at the bases, overall decreased air entry HEART: Regular rate and rhythm, ABDOMEN: Soft, abdominal breathing limiting exam, mild vague antoni-umbilical tenderness with everted umbilicus, positive bowel sounds MUSCULOSKELETAL: Normal range of motion at all joints. No bony deformities or tenderness. No CVA tenderness. UPPER EXTREMITIES: 2+ pulses, warm, well-perfused. No cyanosis. No clubbing. No peripheral edema. LOWER EXTREMITIES: 2+ pitting lower extremity edema NEUROLOGICAL: facial symmetry, tongue midline, power 5/5, no gross deficity PSYCHIATRIC: Cooperative. Good eye contact. Appropriate mood and affect. SKIN: Warm, dry, normal turgor, no rashes or lesions noted, normal capillary refill. Home Medications Medication Instructions Recorded Lisinopril [Zestril] 40 mg PO DAILY 11/09/11 Tamsulosin HCl 0.4 mg PO DAILY 11/09/11 Duloxetine HCl [Cymbalta -] 60 mg PO DAILY 06/29/16 Nifedipine ER [Procardia XL -] 60 mg PO DAILY 06/29/16 Aspirin Coated [Ecotrin -] 81 mg PO DAILY #30 tab 01/19/17 Amlodipine Besylate [Norvasc -] 10 mg PO DAILY 09/16/17 Carvedilol [Coreg -] 25 mg PO DAILY 09/16/17 Cholecalciferol (Vitamin D3) 50,000 unit PO WEEKLY 09/16/17 [Vitamin D3] Zolpidem Tartrate [Ambien] 10 mg PO PRN PRN 09/16/17 Cholecalciferol (Vitamin D3) 50,000 unit PO WEEKLY 01/09/18 [Vitamin D3] Hydrochlorothiazide [Hctz -] 25 mg PO DAILY 01/09/18 Active Medications Amlodipine Besylate (Norvasc -) 10 mg PO DAILY [facility] Aspirin (Ecotrin -) 81 mg PO DAILY [facility] Carvedilol (Coreg -) 25 mg PO DAILY [facility] Chlorhexidine Gluconate (Hibiclens For Decolonization -) 1 applic TP HS HONEY Duloxetine HCl (Cymbalta -) 60 mg PO DAILY [facility] Furosemide (Lasix Injection -) 40 mg IVPUSH DAILY [facility] Heparin Sodium (Porcine) (Heparin -) 5,000 unit SQ TID HONEY Hydrochlorothiazide (Hctz -) 25 mg PO DAILY [facility] Lisinopril (Prinivil) 40 mg PO DAILY [facility] Mupirocin (Bactroban Ointment (For Decolonization) -) 1 applic NS BID HONEY Stop: 01/14/18 21:59 Nifedipine (Procardia Xl -) 60 mg PO DAILY [facility] Tamsulosin HCl (Flomax -) 0.4 mg PO 0830 [facility] Laboratory Results - last 24 hr 01/09/18 01/09/18 01/09/18 14:11 14:58 14:58 WBC 5.1 RBC 3.49 L Hgb 9.5 L Hct 29.6 L MCV 84.7 MCH 27.1 MCHC 32.0 RDW 16.0 H Plt Count 172 MPV 8.0 Absolute Neuts (auto) 3.7 Neutrophils % 72.2 Lymphocytes % 16.5 Monocytes % 8.3 Eosinophils % 2.1 Basophils % 0.9 Nucleated RBC % 0 Sodium 142 Potassium 4.2 Chloride 112 H D Carbon Dioxide 23 Anion Gap 7 L BUN 21 H Creatinine 1.4 H Creat Clearance w eGFR 52.05 Random Glucose 85 Calcium 8.4 L Total Bilirubin 0.9 AST 15 D ALT 25 D Alkaline Phosphatase 87 Troponin I 0.25 H B-Natriuretic Peptide 3524.86 H Total Protein 7.2 Albumin 3.4 CXR pulmonary congestion EKG NSR, prolonged QTc, T inversion V5-V6, aVL (new in V5) ASSESSMENT AND PLAN: 57 yom with PMHx of HTN, non compliant with medications, LVH, recurrent diastolic HF from non compliance, prior admissions needing intubation/ labetalol drip, last admitted in 09/2017 when transferred to [facility] with reportedly normal cath, comes with hypertensive urgency, Acute diastolic Heart failure in the setting of non compliance. -Acute hypoxic respiratory failure -Acute diastolic heart failure -Hypertensive urgency/emergency -ESHA likely from CHF -Elevated troponin, suspect demand induced from above -Abdominal Pain suspect from abdominal breathing,+/- ascitis Plan: Bipap, lasix 40 mg IV x1, labetalol 20 mg IV x 1. Monitor Response. Discussed with Dr. Rooney, if fails to improve, nitro drip. ICU monitoring. Resume home meds Cycle troponins, non specific T wave changes, monitor for now. 2D echo. Monitor renal function on diuresis. Abdominal imaging if symptoms persist when clinically stable. DVTPPX heparin Dispo ICU, plan discussed with patient and at bedside in detail, all questions answered. Also discussed with Dr. Eugene, Dr. Dillard and Dr. Rooney. Total critical care time spent in admission, discussion and co-ordination of care 65 min.
[2018-01-09] MEDS ORDERED: ASPIRIN 81 MG CHEWABLE TABLETS ONE (18:47)
[2018-01-09] MEDS ORDERED: CARVEDILOL 25 MG TABLET (FP) PO SCH ×2 (19:15→22:00)
[2018-01-09] MEDS: ASPIRIN COATED 81 MG TABLET.EC PO SCH (19:16)
[2018-01-09] MEDS ORDERED: HYDROCHLOROTHIAZIDE 25 MG TABLET (FP) ONE (19:18)
[2018-01-09] MEDS ORDERED: amLODIPine BESYLATE 5 MG TABLET (FP) ONE (19:18)
[2018-01-09] MEDS ORDERED: LISINOPRIL 20 MG TABLET (FP) ONE (19:19)
[2018-01-09] MEDS ORDERED: NIFEdipine 10 MG CAPSULE (FP) ONE (19:19)
[2018-01-09] MEDS ORDERED: ASPIRIN COATED 81 MG TABLET.EC ONE (19:19)
[2018-01-09] MEDS: LISINOPRIL 20 MG TABLET (FP) PO SCH (19:30)
[2018-01-09] MEDS: NIFEdipine E.R 60 MG TABLET (UD) PO SCH (19:45)
[2018-01-09] MEDS ORDERED: CHLORHEXIDINE GLUCONATE 4% CLEANSER FOR DECOLONIZATION TP SCH (22:00)
[2018-01-09] MEDS: CARVEDILOL 25 MG TABLET (FP) PO SCH (23:03)
[2018-01-09] MEDS: HEPARIN NA (PORCINE) 5,000 UNITS/ML 1ML VIAL SQ SCH (23:03)
[2018-01-09] MEDS: MUPIROCIN 2% TOPICAL OINTMENT FOR DECOLONIZATION NS SCH (23:04)
[2018-01-09] MEDS ORDERED: ACETAMINOPHEN 325 MG TABLET (FP) ONE (23:14)
[2018-01-09] MEDS ORDERED: ACETAMINOPHEN 1000 MG/100 ML VIAL (NON FORMULARY) IVPB PRN (23:17)
[2018-01-09] MEDS ORDERED: POTASSIUM CHLORIDE TABS 20 MEQ TABLET.ER (FP) PO ONE (23:23)
[2018-01-09 23:51] LABS: HEMOGLOBIN 9.5 GM/dL (11.7-16.9); MCH 26.7 pg (25.7-33.7); MCHC 31.8 g/dl (32.0-35.9); MEAN CELL VOLUME 84.2 fl (80-96); MEAN PLT VOLUME 7.9 fl (7.5-11.1); PLATELET COUNT 170 K/MM3 (134-434); RBC 3.57 M/mm3 (4.00-5.60); RDW 15.6 % (11.9-15.9); WHITE BLOOD COUNT 5.7 K/mm3 (4.0-10.0)
[2018-01-10 00:11] LABS: ALBUMIN 3.5 g/dl (3.4-5.0); ANION GAP 8 (8-16); BLOOD UREA NITROGEN 23 mg/dL (7-18); CALCIUM 8.8 mg/dL (8.5-10.1); CHLORIDE 109 mmol/L (98-107); CO2 25 mmol/L (21-32); CREATININE 1.6 mg/dL (0.7-1.3); GLUCOSE,RANDOM 111 mg/dL (74-106); POTASSIUM 3.4 mmol/L (3.5-5.1); SGOT/AST 23 U/L (15-37); SGPT/ALT 30 U/L (12-78); SODIUM 142 mmol/L (136-145)
[2018-01-10 00:13] LABS: ALK PHOS 97 U/L (45-117); TOT PROT 7.3 g/dl (6.4-8.2)
[2018-01-10 00:35] VITALS: BMI 26.6
[2018-01-10 01:55] LABS: PHOSPHOROUS 3.2 mg/dL (2.5-4.9)
[2018-01-10] MEDS: HEPARIN NA (PORCINE) 5,000 UNITS/ML 1ML VIAL SQ SCH ×3 (05:15→23:24)
[2018-01-10] MEDS ORDERED: POTASSIUM CHLORIDE TABS 20 MEQ TABLET.ER (FP) PO ONE (05:40)
[2018-01-10 05:59] LABS: HEMATOCRIT 28.5 % (35.4-49); HEMOGLOBIN 9.2 GM/dL (11.7-16.9); MCH 27.1 pg (25.7-33.7); MCHC 32.1 g/dl (32.0-35.9); MEAN CELL VOLUME 84.2 fl (80-96); MEAN PLT VOLUME 8.1 fl (7.5-11.1); PLATELET COUNT 154 K/MM3 (134-434); RBC 3.39 M/mm3 (4.00-5.60); WHITE BLOOD COUNT 5.2 K/mm3 (4.0-10.0)
[2018-01-10 06:35] LABS: CHLORIDE 107 mmol/L (98-107); POTASSIUM 3.4 mmol/L (3.5-5.1); SODIUM 141 mmol/L (136-145)
[2018-01-10 06:37] LABS: CHOLESTEROL 125 mg/dL (50-200); HDL CHOLESTEROL 42 mg/dL (40-60); TRIGLYCERIDES 62 mg/dL (35-160)
[2018-01-10 06:40] LABS: ANION GAP 10 (8-16); BLOOD UREA NITROGEN 21 mg/dL (7-18); CALCIUM 8.6 mg/dL (8.5-10.1); CO2 24 mmol/L (21-32); CREATININE 1.4 mg/dL (0.7-1.3); GLUCOSE,RANDOM 92 mg/dL (74-106); PHOSPHOROUS 3.6 mg/dL (2.5-4.9)
--- NOTE | 2018-01-10 08:21 | CON.CARD ---
Cardiology Consult (text) - Consultation Consultation Note: Cardiology Consult Dictated IMP: Known hypertensive CM Chronic HTN, LVH, hypertensive heart disease Medication non-adherence Non-obstx CAD, on multiple caths Mildly dilated ascending aorta Known hx NSVT Chronic diastolic CHF, with acute decompensation due to uncontrolled HTN, not taking meds for 1 week REC: 1. IV Lasix, clinically responding well with good diuresis and improvement in renal fxn 2. Resume Coreg, STELLA-I. D/C Norvasc, was on Procardia XL 3. Echo to evaluate LVEF (previously normal) and degree of LVH. 4. Keep K+ >4 Mg2+ >2 5. NSVT occurs in setting of hypoK+, to be repleted 6. Mild TnI elevation w/ normal CK due to CHF, treatment as above, repeat echo. 7. If NSVT continues after repletion of lytes, will need EP follow up. Thanks.
--- NOTE | 2018-01-10 08:22 | PN ---
Physical Exam: SUBJECTIVE: Patient seen and examined this morning in ICU. No new complaints. Had some cramps over night that resolved with tylenol and stretching. Denies fevers, chills, chest pain, SOB, nausea, vomiting, diarrhea, constipation. OBJECTIVE: Vital Signs Period Temp Pulse Resp BP Sys/Rosado Pulse Ox Last 24 Hr 98.4 F-99.1 F 71-88 13-32 109-164/88-139 97-100 GENERAL: The patient is awake, alert, and fully oriented, in no acute distress THROAT: Oropharynx clear without exudates, moist mucous membranes NECK: JVD has impoved LUNGS: Breath sounds equal, clear to auscultation bilaterally, no wheezes, no crackles HEART: Regular rate and rhythm, S1, S2 without murmur, rub or gallop. ABDOMEN: Soft, nontender, nondistended, normoactive bowel sounds EXTREMITIES: LE Edema improved significantly, Trace edema now Laboratory Results - last 24 hr 01/09/18 01/09/18 01/09/18 14:11 14:58 14:58 WBC 5.1 RBC 3.49 L Hgb 9.5 L Hct 29.6 L MCV 84.7 MCH 27.1 MCHC 32.0 RDW 16.0 H Plt Count 172 MPV 8.0 Absolute Neuts (auto) 3.7 Neutrophils % 72.2 Lymphocytes % 16.5 Monocytes % 8.3 Eosinophils % 2.1 Basophils % 0.9 Nucleated RBC % 0 Sodium 142 Potassium 4.2 Chloride 112 H D Carbon Dioxide 23 Anion Gap 7 L BUN 21 H Creatinine 1.4 H Creat Clearance w eGFR 52.05 Random Glucose 85 Calcium 8.4 L Phosphorus Magnesium Total Bilirubin 0.9 AST 15 D ALT 25 D Alkaline Phosphatase 87 Creatine Kinase Troponin I 0.25 H B-Natriuretic Peptide 3524.86 H Total Protein 7.2 Albumin 3.4 Triglycerides Cholesterol Total LDL Cholesterol HDL Cholesterol TSH 01/09/18 01/09/18 01/09/18 14:58 20:30 23:40 WBC 5.7 RBC 3.57 L Hgb 9.5 L Hct 30.0 L MCV 84.2 MCH 26.7 MCHC 31.8 L RDW 15.6 Plt Count 170 MPV 7.9 Absolute Neuts (auto) Neutrophils % Lymphocytes % Monocytes % Eosinophils % Basophils % Nucleated RBC % Sodium Potassium Chloride Carbon Dioxide Anion Gap BUN Creatinine Creat Clearance w eGFR Random Glucose Calcium Phosphorus Magnesium Total Bilirubin AST ALT Alkaline Phosphatase Creatine Kinase 135 Troponin I 0.25 H B-Natriuretic Peptide Total Protein Albumin Triglycerides Cholesterol Total LDL Cholesterol HDL Cholesterol TSH 1.31 D 01/09/18 01/10/18 01/10/18 23:40 00:06 02:17 WBC RBC Hgb Hct MCV MCH MCHC RDW Plt Count MPV Absolute Neuts (auto) Neutrophils % Lymphocytes % Monocytes % Eosinophils % Basophils % Nucleated RBC % Sodium 142 Potassium 3.4 L Chloride 109 H Carbon Dioxide 25 Anion Gap 8 BUN 23 H Creatinine 1.6 H Creat Clearance w eGFR 44.62 Random Glucose 111 H D Calcium 8.8 Phosphorus 3.2 Magnesium 2.0 Total Bilirubin 1.0 AST 23 D ALT 30 Alkaline Phosphatase 97 D Creatine Kinase 126 Troponin I 0.24 H B-Natriuretic Peptide Total Protein 7.3 Albumin 3.5 Triglycerides Cholesterol Total LDL Cholesterol HDL Cholesterol TSH 01/10/18 01/10/18 01/10/18 05:30 05:30 05:30 WBC 5.2 RBC 3.39 L Hgb 9.2 L Hct 28.5 L MCV 84.2 MCH 27.1 MCHC 32.1 RDW 16.0 H Plt Count 154 MPV 8.1 Absolute Neuts (auto) Neutrophils % Lymphocytes % Monocytes % Eosinophils % Basophils % Nucleated RBC % Sodium 141 Potassium 3.4 L Chloride 107 Carbon Dioxide 24 Anion Gap 10 BUN 21 H Creatinine 1.4 H Creat Clearance w eGFR 52.05 Random Glucose 92 Calcium 8.6 Phosphorus 3.6 Magnesium 2.0 Total Bilirubin AST ALT Alkaline Phosphatase Creatine Kinase Troponin I B-Natriuretic Peptide Total Protein Albumin Triglycerides 62 Cholesterol 125 D Total LDL Cholesterol 74 D HDL Cholesterol 42 TSH Active Medications Acetaminophen (Ofirmev Injection -) 1,000 mg IVPB Q6H PRN PRN Reason: MODERATE PAIN Last Admin: 01/09/18 23:27 Dose: 1,000 mg Aspirin (Ecotrin -) 81 mg PO DAILY [facility] Last Admin: 01/10/18 09:59 Dose: 81 mg Carvedilol (Coreg -) 25 mg PO BID [facility] Last Admin: 01/10/18 09:59 Dose: 25 mg Chlorhexidine Gluconate (Hibiclens For Decolonization -) 1 applic TP HS [facility] Last Admin: 01/09/18 23:04 Dose: 1 applic Duloxetine HCl (Cymbalta -) 60 mg PO DAILY [facility] Last Admin: 01/10/18 10:00 Dose: 60 mg Furosemide (Lasix Injection -) 40 mg IVPUSH DAILY [facility] Last Admin: 01/10/18 09:59 Dose: 40 mg Heparin Sodium (Porcine) (Heparin -) 5,000 unit SQ TID [facility] Last Admin: 01/10/18 13:20 Dose: 5,000 unit Lisinopril (Prinivil) 40 mg PO DAILY [facility] Last Admin: 01/10/18 10:00 Dose: 40 mg Mupirocin (Bactroban Ointment (For Decolonization) -) 1 applic NS BID [facility] Stop: 01/14/18 21:59 Last Admin: 01/09/18 23:04 Dose: 1 applic Nifedipine (Procardia Xl -) 60 mg PO DAILY [facility] Last Admin: 01/10/18 10:00 Dose: 60 mg Tamsulosin HCl (Flomax -) 0.4 mg PO 0830 [facility] Last Admin: 01/10/18 08:48 Dose: 0.4 mg ASSESSMENT/PLAN: 56 yo m h/o refractory HTN, ?asthma, NIDDM, kidney stone, aortic aneurysm, HFpEF admitted to ICU for acute CHF exacerbation. 1. Hypertensive Urgency - On Admission: DBP > 125, Elevated Cr, Troponemia - Likely due to non-compliance - BP equal in both arms - Echo pending - D/C [place]vas - Continue Nifedipine 60 mg PO DAILY - Continue Carvedilol 25 mg PO BID [facility] - Continue Furosemide 40 mg IVPUSH DAILY [facility] - Continue Lisinopril 40 mg PO DAILY [facility] - Cardiology consulted (Dr. Bull), Appreciate rec's 2. Acute on Chronic diastolic HF - Continue Furosemide 40 mg IVPUSH DAILY [facility] - Echo pending - Strict I&O, daily weights 3. ESHA - Creatinine 1.4 today - Improved with Furosemide 40 mg - Monitor closely 4. Tropinemia - 0.25-->0.25-->0.24 - Likely demand ischemia due to volume overload and HTN - Echo pending - Cardiac cath last year at [facility], will obtain records 5. PSVT/NSVT - Sustanined VTach for 16 beats on Tele monitor - Asymptomatic - Continue Carvedilol 25 mg PO BID [facility] - Keep Mag > 2.5 and K > 4.5; lytes repleated as needed 6. [place]-umbilical pain - Diffuse tenderness around umbilicus for months - Has improved since diuresis - Imaging reviewed - Tolerating diet 7. NIDDM - Controlled off medications - A1c 4.3% - Continue to monitor 8. BPH - Continue Tamsulosin 0.4 mg PO 9. Prophylaxis - DVT: subq heparin Dispo: Transfer to tele Visit type - Emergency Visit Emergency Visit: Yes ED Registration Date: 01/09/18 Care time: The patient presented to the Emergency Department on the above date and was hospitalized for further evaluation of their emergent condition. - New Patient This patient is new to me today: Yes Date on this admission: 01/10/18 - Critical Care Critical Care patient: Yes Total Critical Care Time (in minutes): 40 Critical Care Statement: The care of this patient involved high complexity decision making to prevent further life threatening deterioration of the patient 's condition and/or to evaluate & treat vital organ system(s) failure or risk of failure.
[2018-01-10] MEDS ORDERED: TAMSULOSIN HCL 0.4 MG CAP.ER.24H (FP) PO SCH (08:30)
--- NOTE | 2018-01-10 09:22 | CONS ---
CARDIOLOGY CONSULTATION DATE OF CONSULTATION: 01/10/2018 REQUESTING PHYSICIAN: Elli Ray MD REASON FOR CONSULTATION: Congestive heart failure. The patient is a 57-year-old male well known to me from previous hospitalizations and office practice. He has a significant past medical history of chronic hypertension, left ventricular hypertrophy, hypertensive heart disease, and chronic diastolic CHF secondary to these chronic factors. He is, unfortunately, chronically non-adherent with his home blood pressure regimen and frequently develops CHF exacerbations in the setting of uncontrolled hypertension. He now presents to the ER with 1 week of worsening bilateral lower extremity edema and dyspnea on exertion in the setting of having stopped his oral antihypertensive regimen about 1 week ago. He stops his treatment on his own because he states that his medications make him feel fatigued and cause some degree of erectile dysfunction. He denies chest pain. He does have palpitations chronically. In the ER, he was found to be in volume overload with his chest x-ray showing clear CHF and elevated BNP. His troponin is also mildly elevated with normal CKs, consistent with decompensated CHF. He was started back on his oral antihypertensive regimen and given IV Lasix, and this morning, he is clinically improved with decreased edema and less shortness of breath. He currently denies any dyspnea or chest pain. He reports having urinated multiple times throughout the evening. He denies any recent fevers, chills, or infectious symptoms. He has no neurological deficits. He has chronic palpitations corresponding with non-sustained ventricular tachycardia which has been previously evaluated by Electrophysiology, Dr. Wilfredo Benitez, at [facility]. At which time, the recommendation was for no ICD placement. PAST MEDICAL HISTORY: As above. ALLERGIES: He is allergic to ADHESIVE TAPE. CURRENT MEDICATIONS: Include Tylenol p.r.n., aspirin 81 mg daily, carvedilol 25 mg b.i.d., Cymbalta 60 mg p.o. daily for chronic depression, Lasix 40 mg IV daily, subcutaneous heparin 5000 units t.i.d. for DVT prophylaxis, hydrochlorothiazide 25 mg p.o. daily, lisinopril 40 mg p.o. daily, Procardia XL 60 mg p.o. daily, Flomax 0.4 mg p.o. daily. FAMILY HISTORY: Noncontributory to this presentation. SOCIAL HISTORY: He is . He is a smoker. PHYSICAL EXAMINATION: General: He is in no distress. Vital Signs: Afebrile, temperature 98.5; pulse 82; blood pressure initially 160/122, now down to 145/96. His weight is 213 pounds, down from 218 pounds on admission. Neck: He has no JVD at this time. Heart: Regular with an S4 gallop. Chest: Mild rales at the bases bilaterally. Abdomen: Soft, nontender. No aortic enlargement. No renal bruits. Extremities: Currently, he has 1+ edema bilaterally. His chest x-ray showed cardiomegaly with increased pulmonary vascular congestion. Bilateral lower extremity venous duplex was negative for DVT. LABORATORY DATA: White count 5.2, hematocrit 28.5, platelets 154. Sodium 141, potassium 3.4, BUN 21; creatinine 1.4, down from 1.6 initially after diuresis. Magnesium 2.0. CK is negative x2. Troponin has been mildly elevated above 0, but flat, 0.25, 0.25, and 0.24 with no significant rise, and his LDL is 74. IMPRESSION: 1. Known hypertensive cardiomyopathy. 2. Chronic hypertension, left ventricular hypertrophy, hypertensive heart disease. 3. Medication nonadherence. 4. Non-obstructive coronary artery disease on multiple catheterizations. 5. Mildly dilated ascending aorta. 6. History of non-sustained ventricular tachycardia. 7. Chronic diastolic congestive heart failure with acute decompensation in the setting of uncontrolled hypertension due to not taking medications for 1 week. RECOMMENDATIONS: 1. Continue IV Lasix, clinically responding well with good diuresis and improvement in renal function. 2. Resume Coreg, STELLA inhibitor. Discontinue Norvasc as he was on Procardia XL. Discontinue hydrochlorothiazide while he is currently on IV Lasix. 3. Echo to be repeated to re-evaluate LVEF and the degree of LVH, as well as to check on the aortic root diameter. 4. Please replete potassium to 4 and magnesium to 2.0. 5. History of non-sustained VT, noted again on telemetry, 16 beats, in the setting of hypokalemia. Potassium to be repleted, continue Coreg. 6. Mild Tni elevation with normal CK due to CHF, treatment as above, repeat echo. 7. If the non-sustained VT continues after repletion of electrolytes, will need EP followup. Thank you for the consultation. PENNY DICKSON M.D. THONG/[id number]
[2018-01-10] MEDS: ASPIRIN COATED 81 MG TABLET.EC PO SCH (09:59)
[2018-01-10] MEDS: CARVEDILOL 25 MG TABLET (FP) PO SCH ×2 (09:59→23:24)
[2018-01-10] MEDS: LISINOPRIL 20 MG TABLET (FP) PO SCH (10:00)
[2018-01-10] MEDS ORDERED: DULoxetine HCL 30 MG CAPSULE.DR (FP) PO SCH (10:00)
[2018-01-10] MEDS ORDERED: POTASSIUM CHLORIDE ORAL LIQUID 20 MEQ/15 ML PO ONE (10:00)
[2018-01-10] MEDS ORDERED: FUROSEMIDE 40 MG/4 ML INJECTABLE VIAL IVPUSH SCH (10:00)
[2018-01-10] MEDS: MUPIROCIN 2% TOPICAL OINTMENT FOR DECOLONIZATION NS SCH (10:00)
[2018-01-10] MEDS: NIFEdipine E.R 60 MG TABLET (UD) PO SCH (10:00)
--- NOTE | 2018-01-10 11:51 | ECHO ---
Name: LIA MESA Exam:Adult Echocardiogram Study Date: 01/10/2018 07:59 AM Age: 57 yrs Reason For Study: CHF Height: 76 in Weight: 225 lb BSA: 2.3 m2 BP: 149/113 mmHg MMode/2D Measurements & Calculations IVSd: 1.9 cm Ao root diam: 3.6 cm LVIDd: 5.2 cm LA dimension: 4.7 cm LVIDs: 4.3 cm LVPWd: 1.9 cm EDV(Teich): 129.1 ml LAV (MOD-bp): 180.0 ml ESV(Teich): 81.3 ml Doppler Measurements & Calculations MV E max grayson: 90.7 cm/sec AI P1/2t: 780.5 msec MV A max grayson: 63.5 cm/sec MV E/A: 1.4 MV dec time: 0.25 sec AI max grayson: 337.2 cm/sec MR max grayson: 529.6 cm/sec AI max P.5 mmHg MR max P.2 mmHg AI dec slope: 126.5 cm/sec2 TR max grayson: 270.4 cm/sec Med Peak E' Grayson: 5.2 cm/sec TR max P.8 mmHg Med E/e': 17.4 Lat Peak E' Grayson: 12.3 cm/sec Lat E/e': 7.4 PI Vmax: 85.5 cm/sec Procedure A two-dimensional transthoracic echocardiogram with color flow and Doppler was performed. The patient was in normal sinus rhythm during the exam. Left Ventricle There is moderate concentric left ventricular hypertrophy. Left ventricular systolic function is mild to moderately reduced. Ejection Fraction = 45%. There is mild to moderate global hypokinesis of the left ventricle. Right Ventricle The right ventricle is normal size. The right ventricular systolic function is normal. Atria The left atrium is severely dilated. The right atrium is moderately dilated. Mitral Valve The mitral valve is normal. There is moderate mitral regurgitation. Tricuspid Valve The tricuspid valve is normal. There is mild tricuspid regurgitation. Aortic Valve The aortic valve is trileaflet. The aortic valve opens well. The aortic valve is normal in structure and function. Trace aortic regurgitation. Pulmonic Valve The pulmonic valve is not well seen, but is grossly normal. Trace pulmonic valvular regurgitation. Great Vessels The aortic root is normal size. Pericardium/Pleura There is no pericardial effusion. Interpretation Summary There is moderate concentric left ventricular hypertrophy. Left ventricular systolic function is mild to moderately reduced. Ejection Fraction = 45%. There is mild to moderate global hypokinesis of the left ventricle. The right ventricle is normal size. The right ventricular systolic function is normal. The left atrium is severely dilated. The right atrium is moderately dilated. There is moderate mitral regurgitation. There is mild tricuspid regurgitation. Trace aortic regurgitation. Trace pulmonic valvular regurgitation. There is no pericardial effusion. MD Juan Ramon Ramirez 01/10/2018 11:51 AM
--- NOTE | 2018-01-10 12:04 | PN ---
Teaching Attending Note Name of Resident: Silas Marcos ATTENDING PHYSICIAN STATEMENT I saw and evaluated the patient. I reviewed the resident's note and discussed the case with the resident. I agree with the resident's findings and plan as documented. SUBJECTIVE: Patient seen and examined in the ICU. SOB has improved. No CP. Noted NSVT/Bigeminy/Trigeminy on monitor Intake & Output 01/07/18 01/08/18 01/09/18 01/10/18 23:59 23:59 23:59 23:59 Output Total 1999 2099 Balance -1999 Weight 218 lb 11.2 oz 213 lb 4.8 oz Last Vital Signs Temp Pulse Resp BP Pulse Ox 98.5 F 78 20 143/101 99 01/10/18 06:00 01/10/18 10:00 01/10/18 11:41 01/10/18 10:00 01/10/18 11:41 Active Medications Acetaminophen (Ofirmev Injection -) 1,000 mg IVPB Q6H PRN PRN Reason: MODERATE PAIN Last Admin: 01/09/18 23:27 Dose: 1,000 mg Aspirin (Ecotrin -) 81 mg PO DAILY [facility] Last Admin: 01/10/18 09:59 Dose: 81 mg Carvedilol (Coreg -) 25 mg PO BID [facility] Last Admin: 01/10/18 09:59 Dose: 25 mg Chlorhexidine Gluconate (Hibiclens For Decolonization -) 1 applic TP HS [facility] Last Admin: 01/09/18 23:04 Dose: 1 applic Duloxetine HCl (Cymbalta -) 60 mg PO DAILY [facility] Last Admin: 01/10/18 10:00 Dose: 60 mg Furosemide (Lasix Injection -) 40 mg IVPUSH DAILY [facility] Last Admin: 01/10/18 09:59 Dose: 40 mg Heparin Sodium (Porcine) (Heparin -) 5,000 unit SQ TID [facility] Last Admin: 01/10/18 05:15 Dose: 5,000 unit Lisinopril (Prinivil) 40 mg PO DAILY [facility] Last Admin: 01/10/18 10:00 Dose: 40 mg Mupirocin (Bactroban Ointment (For Decolonization) -) 1 applic NS BID [facility] Stop: 01/14/18 21:59 Last Admin: 01/09/18 23:04 Dose: 1 applic Nifedipine (Procardia Xl -) 60 mg PO DAILY [facility] Last Admin: 01/10/18 10:00 Dose: 60 mg Tamsulosin HCl (Flomax -) 0.4 mg PO 0830 [facility] Last Admin: 01/10/18 08:48 Dose: 0.4 mg GENERAL: Awake, alert, and fully oriented, NAD HEAD: Normal with no signs of trauma. EYES: Pupils equal, round and reactive to light, extraocular movements intact, sclera anicteric, conjunctiva clear. fundoscopic exam reveals poor view. EARS, NOSE, THROAT: Moist mucous membranes. NECK: (-) JVD LUNGS: Bibasilar Rales HEART: Regular rate and rhythm with premature beats, S1 and S2 ABDOMEN: Soft, nontender, not distended, normoactive bowel sounds, no guarding, no rebound, no masses. MUSCULOSKELETAL: No CVA tenderness. UPPER EXTREMITIES: 2+ pulses, warm, well-perfused. LOWER EXTREMITIES: 2+ pulses, warm, well-perfused. No calf tenderness. 2+ pitting edema at b/l ankles NEUROLOGICAL: Non-focal PSYCHIATRIC: Cooperative. Good eye contact. Appropriate mood and affect. SKIN: Warm, dry Laboratory Results - last 24 hr 01/09/18 01/09/18 01/09/18 14:11 14:58 14:58 WBC 5.1 RBC 3.49 L Hgb 9.5 L Hct 29.6 L MCV 84.7 MCH 27.1 MCHC 32.0 RDW 16.0 H Plt Count 172 MPV 8.0 Absolute Neuts (auto) 3.7 Neutrophils % 72.2 Lymphocytes % 16.5 Monocytes % 8.3 Eosinophils % 2.1 Basophils % 0.9 Nucleated RBC % 0 Sodium 142 Potassium 4.2 Chloride 112 H D Carbon Dioxide 23 Anion Gap 7 L BUN 21 H Creatinine 1.4 H Creat Clearance w eGFR 52.05 Random Glucose 85 Hemoglobin A1c % Calcium 8.4 L Phosphorus Magnesium Total Bilirubin 0.9 AST 15 D ALT 25 D Alkaline Phosphatase 87 Creatine Kinase Troponin I 0.25 H B-Natriuretic Peptide 3524.86 H Total Protein 7.2 Albumin 3.4 Triglycerides Cholesterol Total LDL Cholesterol HDL Cholesterol TSH 01/09/18 01/09/18 01/09/18 14:58 20:30 23:40 WBC 5.7 RBC 3.57 L Hgb 9.5 L Hct 30.0 L MCV 84.2 MCH 26.7 MCHC 31.8 L RDW 15.6 Plt Count 170 MPV 7.9 Absolute Neuts (auto) Neutrophils % Lymphocytes % Monocytes % Eosinophils % Basophils % Nucleated RBC % Sodium Potassium Chloride Carbon Dioxide Anion Gap BUN Creatinine Creat Clearance w eGFR Random Glucose Hemoglobin A1c % Calcium Phosphorus Magnesium Total Bilirubin AST ALT Alkaline Phosphatase Creatine Kinase 135 Troponin I 0.25 H B-Natriuretic Peptide Total Protein Albumin Triglycerides Cholesterol Total LDL Cholesterol HDL Cholesterol TSH 1.31 D 01/09/18 01/10/18 01/10/18 23:40 00:06 02:17 WBC RBC Hgb Hct MCV MCH MCHC RDW Plt Count MPV Absolute Neuts (auto) Neutrophils % Lymphocytes % Monocytes % Eosinophils % Basophils % Nucleated RBC % Sodium 142 Potassium 3.4 L Chloride 109 H Carbon Dioxide 25 Anion Gap 8 BUN 23 H Creatinine 1.6 H Creat Clearance w eGFR 44.62 Random Glucose 111 H D Hemoglobin A1c % Calcium 8.8 Phosphorus 3.2 Magnesium 2.0 Total Bilirubin 1.0 AST 23 D ALT 30 Alkaline Phosphatase 97 D Creatine Kinase 126 Troponin I 0.24 H B-Natriuretic Peptide Total Protein 7.3 Albumin 3.5 Triglycerides Cholesterol Total LDL Cholesterol HDL Cholesterol TSH 01/10/18 01/10/18 01/10/18 05:30 05:30 05:30 WBC 5.2 RBC 3.39 L Hgb 9.2 L Hct 28.5 L MCV 84.2 MCH 27.1 MCHC 32.1 RDW 16.0 H Plt Count 154 MPV 8.1 Absolute Neuts (auto) Neutrophils % Lymphocytes % Monocytes % Eosinophils % Basophils % Nucleated RBC % Sodium 141 Potassium 3.4 L Chloride 107 Carbon Dioxide 24 Anion Gap 10 BUN 21 H Creatinine 1.4 H Creat Clearance w eGFR 52.05 Random Glucose 92 Hemoglobin A1c % Calcium 8.6 Phosphorus 3.6 Magnesium 2.0 Total Bilirubin AST ALT Alkaline Phosphatase Creatine Kinase Troponin I B-Natriuretic Peptide Total Protein Albumin Triglycerides 62 Cholesterol 125 D Total LDL Cholesterol 74 D HDL Cholesterol 42 TSH 01/10/18 05:30 WBC RBC Hgb Hct MCV MCH MCHC RDW Plt Count MPV Absolute Neuts (auto) Neutrophils % Lymphocytes % Monocytes % Eosinophils % Basophils % Nucleated RBC % Sodium Potassium Chloride Carbon Dioxide Anion Gap BUN Creatinine Creat Clearance w eGFR Random Glucose Hemoglobin A1c % 4.3 L D Calcium Phosphorus Magnesium Total Bilirubin AST ALT Alkaline Phosphatase Creatine Kinase Troponin I B-Natriuretic Peptide Total Protein Albumin Triglycerides Cholesterol Total LDL Cholesterol HDL Cholesterol TSH Problem List - Problems (1) HOCM (hypertrophic obstructive cardiomyopathy) Code(s): I42.1 - OBSTRUCTIVE HYPERTROPHIC CARDIOMYOPATHY (2) Acute CHF (congestive heart failure) Code(s): I50.9 - HEART FAILURE, UNSPECIFIED (3) CHF (congestive heart failure) Code(s): I50.9 - HEART FAILURE, UNSPECIFIED Qualifiers: Qualified Code(s): I50.9 - Heart failure, unspecified (4) DVT prophylaxis Code(s): HYX9939 - (5) Hypertensive urgency Code(s): I10 - ESSENTIAL (PRIMARY) HYPERTENSION (6) Nephrolithiasis Code(s): N20.0 - CALCULUS OF KIDNEY (7) Renal insufficiency Code(s): N28.9 - DISORDER OF KIDNEY AND URETER, UNSPECIFIED ASSESSMENT/PLAN: Acute on chronic CHF exacerbation HCM Nonobstructive CAD Nephrolithiasis Hypertensive urgency CKD R/O Sleep Apnea Smoker Restart home medications Lasix O2 as needed Sleep screen for Sleep Apnea Cardiac workup ongoing VTE prophylaxis Smoking cessation Cardiac Telemetry monitoring Dr Dillard Critical care time spent in reviewing chart, evaluating patient and formulating plan - 36 minutes.
--- NOTE | 2018-01-10 13:56 | EKG ---
Test Reason : Blood Pressure : / mmHG Vent. Rate : 090 BPM Atrial Rate : 090 BPM P-R Int : 172 ms QRS Dur : 090 ms QT Int : 412 ms P-R-T Axes : 022 019 130 degrees QTc Int : 504 ms POOR DATA QUALITY, INTERPRETATION MAY BE ADVERSELY AFFECTED NORMAL SINUS RHYTHM POSSIBLE LEFT ATRIAL ENLARGEMENT LEFT VENTRICULAR HYPERTROPHY WITH REPOLARIZATION ABNORMALITY PROLONGED QT ABNORMAL ECG Confirmed by Alvin Hurley MD ([id number]) on 01/10/2018 1:56:01 PM Referred By: Confirmed By:Alvin Hurley MD
--- NOTE | 2018-01-10 15:08 | PN ---
Physical Exam: SUBJECTIVE: Patient seen and examined in the ICU. He states that he is much better than yesterday. He says that he does not usually take his medicine at home and now that he is taking it in the hospital, he feels much better. He discussed that he has a new granddaughter and realizes that he wants to take care of himself better in order to be involved in her life for a long time. 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 OBJECTIVE: Vital Signs Period Temp Pulse Resp BP Sys/Rosado Pulse Ox Last 24 Hr 98.4 F-99.1 F 71-88 13-21 109-164/80-139 97-100 GENERAL: The patient is awake, alert, and fully oriented, in no acute distress. HEAD: Normal with no signs of trauma. EYES: sclera anicteric, conjunctiva clear. No ptosis. ENT: Ears normal, nares patent, oropharynx clear without exudates, moist mucous membranes. NECK: Trachea midline, full range of motion, supple. LUNGS: Breath sounds equal, clear to auscultation bilaterally, no wheezes, no crackles, no accessory muscle use. HEART: Regular rate and rhythm, S1, S2 without murmur, rub or gallop. ABDOMEN: Soft, nontender, nondistended, normoactive bowel sounds, no guarding, EXTREMITIES: 2+ pulses, warm, well-perfused, no edema. NEUROLOGICAL: Cranial nerves II through XII grossly intact. Normal speech, gait not observed. PSYCH: Normal mood, normal affect. SKIN: Warm, dry, normal turgor, no rashes or lesions noted Laboratory Results - last 24 hr 01/09/18 01/09/18 01/09/18 14:11 14:58 14:58 WBC 5.1 RBC 3.49 L Hgb 9.5 L Hct 29.6 L MCV 84.7 MCH 27.1 MCHC 32.0 RDW 16.0 H Plt Count 172 MPV 8.0 Absolute Neuts (auto) 3.7 Neutrophils % 72.2 Lymphocytes % 16.5 Monocytes % 8.3 Eosinophils % 2.1 Basophils % 0.9 Nucleated RBC % 0 Sodium 142 Potassium 4.2 Chloride 112 H D Carbon Dioxide 23 Anion Gap 7 L BUN 21 H Creatinine 1.4 H Creat Clearance w eGFR 52.05 Random Glucose 85 Hemoglobin A1c % Calcium 8.4 L Phosphorus Magnesium Total Bilirubin 0.9 AST 15 D ALT 25 D Alkaline Phosphatase 87 Creatine Kinase Troponin I 0.25 H B-Natriuretic Peptide 3524.86 H Total Protein 7.2 Albumin 3.4 Triglycerides Cholesterol Total LDL Cholesterol HDL Cholesterol TSH 01/09/18 01/09/18 01/09/18 14:58 20:30 23:40 WBC 5.7 RBC 3.57 L Hgb 9.5 L Hct 30.0 L MCV 84.2 MCH 26.7 MCHC 31.8 L RDW 15.6 Plt Count 170 MPV 7.9 Absolute Neuts (auto) Neutrophils % Lymphocytes % Monocytes % Eosinophils % Basophils % Nucleated RBC % Sodium Potassium Chloride Carbon Dioxide Anion Gap BUN Creatinine Creat Clearance w eGFR Random Glucose Hemoglobin A1c % Calcium Phosphorus Magnesium Total Bilirubin AST ALT Alkaline Phosphatase Creatine Kinase 135 Troponin I 0.25 H B-Natriuretic Peptide Total Protein Albumin Triglycerides Cholesterol Total LDL Cholesterol HDL Cholesterol TSH 1.31 D 01/09/18 01/10/18 01/10/18 23:40 00:06 02:17 WBC RBC Hgb Hct MCV MCH MCHC RDW Plt Count MPV Absolute Neuts (auto) Neutrophils % Lymphocytes % Monocytes % Eosinophils % Basophils % Nucleated RBC % Sodium 142 Potassium 3.4 L Chloride 109 H Carbon Dioxide 25 Anion Gap 8 BUN 23 H Creatinine 1.6 H Creat Clearance w eGFR 44.62 Random Glucose 111 H D Hemoglobin A1c % Calcium 8.8 Phosphorus 3.2 Magnesium 2.0 Total Bilirubin 1.0 AST 23 D ALT 30 Alkaline Phosphatase 97 D Creatine Kinase 126 Troponin I 0.24 H B-Natriuretic Peptide Total Protein 7.3 Albumin 3.5 Triglycerides Cholesterol Total LDL Cholesterol HDL Cholesterol TSH 01/10/18 01/10/18 01/10/18 05:30 05:30 05:30 WBC 5.2 RBC 3.39 L Hgb 9.2 L Hct 28.5 L MCV 84.2 MCH 27.1 MCHC 32.1 RDW 16.0 H Plt Count 154 MPV 8.1 Absolute Neuts (auto) Neutrophils % Lymphocytes % Monocytes % Eosinophils % Basophils % Nucleated RBC % Sodium 141 Potassium 3.4 L Chloride 107 Carbon Dioxide 24 Anion Gap 10 BUN 21 H Creatinine 1.4 H Creat Clearance w eGFR 52.05 Random Glucose 92 Hemoglobin A1c % Calcium 8.6 Phosphorus 3.6 Magnesium 2.0 Total Bilirubin AST ALT Alkaline Phosphatase Creatine Kinase Troponin I B-Natriuretic Peptide Total Protein Albumin Triglycerides 62 Cholesterol 125 D Total LDL Cholesterol 74 D HDL Cholesterol 42 TSH 01/10/18 05:30 WBC RBC Hgb Hct MCV MCH MCHC RDW Plt Count MPV Absolute Neuts (auto) Neutrophils % Lymphocytes % Monocytes % Eosinophils % Basophils % Nucleated RBC % Sodium Potassium Chloride Carbon Dioxide Anion Gap BUN Creatinine Creat Clearance w eGFR Random Glucose Hemoglobin A1c % 4.3 L D Calcium Phosphorus Magnesium Total Bilirubin AST ALT Alkaline Phosphatase Creatine Kinase Troponin I B-Natriuretic Peptide Total Protein Albumin Triglycerides Cholesterol Total LDL Cholesterol HDL Cholesterol TSH Active Medications Generic Name Dose Route Start Last Admin Trade Name Freq PRN Reason Stop Dose Admin Acetaminophen 1,000 mg 01/09/18 23:17 01/09/18 23:27 Ofirmev Injection - IVPB 1,000 mg Q6H PRN Administration MODERATE PAIN Aspirin 81 mg 01/09/18 18:30 01/10/18 09:59 Ecotrin - PO 81 mg DAILY [facility] Administration Carvedilol 25 mg 01/09/18 22:00 01/10/18 09:59 Coreg - PO 25 mg BID [facility] Administration Chlorhexidine Gluconate 1 applic 01/09/18 22:00 01/09/18 23:04 Hibiclens For Decolonization - TP 1 applic HS [facility] Administration Duloxetine HCl 60 mg 01/10/18 10:00 01/10/18 10:00 Cymbalta - PO 60 mg DAILY [facility] Administration Furosemide 40 mg 01/10/18 10:00 01/10/18 09:59 Lasix Injection - IVPUSH 40 mg DAILY [facility] Administration Heparin Sodium (Porcine) 5,000 unit 01/09/18 22:00 01/10/18 13:20 Heparin - SQ 5,000 unit TID [facility] Administration Lisinopril 40 mg 01/09/18 18:30 01/10/18 10:00 Prinivil PO 40 mg DAILY [facility] Administration Mupirocin 1 applic 01/09/18 22:00 01/09/18 23:04 Bactroban Ointment (For Decolonization) - NS 01/14/18 21:59 1 applic BID [facility] Administration Nifedipine 60 mg 01/09/18 19:15 01/10/18 10:00 Procardia Xl - PO 60 mg DAILY [facility] Administration Tamsulosin HCl 0.4 mg 01/10/18 08:30 07/24/18 08:48 Flomax - PO 0.4 mg 0830 [facility] Administration ASSESSMENT/PLAN: 57 yo male with PMH HCM, CHF, NSVT, uncontrolled HTN, CAD, with SOB found to be fluid overloaded, acute on chronic systolic heart failure, known moderately reduced EF of both left and right ventricles Neuro -No known Neuro issues at this time Cardio -Acute on chronic systolic heart failure Clinically fluid overloaded on admission Lasix 40 mg IV daily -CAD ASA 81 mg PO daily -HTN Lisinopril 40 mg PO Daily Nifedipine 60 mg PO Daily Coreg 25 mg PO BID Respiratory -SOB on admission clinically fluid overloaded CXR noted: unfolded aorta, congestive changes slightly improved, atelectatic changes vs scarring in the left base Respiratory status greatly improved from yesterday GI -No known GI issues at this time Renal -Mild ESHA, possibly due to renal hypoperfusion secondary to CHF or due to Lasix DVT Prophylaxis -Heparin 5000 Units SQ TID FEN -Fluids: none -Electrolytes: K+ 3.4, repleted, recheck BMP in AM -Nutrition: Sodium controlled diet Disposition Transfer to Telemetry Problem List - Problems (1) Acute CHF (congestive heart failure) Code(s): I50.9 - HEART FAILURE, UNSPECIFIED (2) HOCM (hypertrophic obstructive cardiomyopathy) Code(s): I42.1 - OBSTRUCTIVE HYPERTROPHIC CARDIOMYOPATHY (3) Renal insufficiency Code(s): N28.9 - DISORDER OF KIDNEY AND URETER, UNSPECIFIED Visit type - Emergency Visit Emergency Visit: Yes ED Registration Date: 01/09/18 Care time: The patient presented to the Emergency Department on the above date and was hospitalized for further evaluation of their emergent condition. - New Patient This patient is new to me today: Yes Date on this admission: 01/10/18 - Critical Care Critical Care patient: Yes Total Critical Care Time (in minutes): 50 Critical Care Statement: The care of this patient involved high complexity decision making to prevent further life threatening deterioration of the patient 's condition and/or to evaluate & treat vital organ system(s) failure or risk of failure.
--- NOTE | 2018-01-10 17:21 | PN ---
Teaching Attending Note Name of Resident: Tracee Rizvi ATTENDING PHYSICIAN STATEMENT I saw and evaluated the patient. I reviewed the resident's note and discussed the case with the resident. I agree with the resident's findings and plan as documented. SUBJECTIVE:asymptomatic. states he has not been complaint with his mediations for at least 3 weeks because he just gets "annoyed" he has to take medications every day and then some several times a day. sometimes he forget if he actually did take his medications. states all his symptoms resolved last night in the ER and today he feels great. denies Cp, SOB< fever, chills, N/V/C/D OBJECTIVE: Last Vital Signs Temp Pulse Resp BP Pulse Ox 98.5 F 68 20 111/75 99 01/10/18 06:00 01/10/18 15:00 01/10/18 15:00 01/10/18 15:00 01/10/18 11:41 Intake & Output 01/07/18 01/08/18 01/09/18 01/10/18 23:59 23:59 23:59 23:59 Output Total 1999 2099 Balance -1999 Weight 218 lb 11.2 oz 213 lb 4.8 oz General NAD CV S1 S2 RRR no murmur/rub/gallop no chest wall tenderness Lungs CTA no wheezing/rales/rhonchi ABdomen soft NT/ND Extremities no pedal edema ASSESSMENT AND PLAN: 57yo M with PMH HTN, diastolic CHF, DM, NSVT and BPH presented to the ER with CP andd SOB and B/L pedal edema gradually worsening in setting of non compliance 1. HTN urgency- due to non-compliance. BP equal in both arms. received labetolol 20mg IVP yesterday in addition to home medications with good response. [facility] switched to procardia. resume other home medication. echo pending. cardio on board. 2. Acute on chronic diastolic CHF- good response to lasix 40mg IV yesterday. will cont daily lasix. can likely transition to po in 24-48H. echo pending. strict I&O, daily weights. doppler negative for DVT 3. ESHA- due to pre-renal. improved with diuresis. will cont for now. monitor closely 4. Tropinemia- likely demand due to volume overload and HTN. flat trend. echo pending. had cardiac cath last year at [facility]. known to have clean cath in the past. 5. Hypokalemia- KCl po. goal to >4.5 6. Hx of DM- A1c 4.3 and patient has not been taking his home medications. can continue with diet control 7. abdominal pain-liekly due to volume overload and HTN urgency. now resolved. CT abdomen/pelvis negative for acute pathology. tolerating diet. no further workup 8. NSVT- episode last night. not symptomatic. re-start betablocker. titrate as tolerated. 9. BPH- re-started on flomax 10. DVT ppx- hep sq 11. stable for transfer to tele 12. detailed conversation with patient regarding compliance and risks assoc with uncontrolled HTN. discussed ways to improve on compliance. getting pill boxes for the days of the week and setting an alarm on the phone for daily reminders to take medications. need to follow up with doctors The care of this patient involved high complexity decision making to prevent further life threatening deterioration of the patient's condition and/or to evaluate & treat vital organ system(s) failure or risk of . 45 minutes
[2018-01-10] MEDS ORDERED: ACETAMINOPHEN 1000 MG/100 ML VIAL (NON FORMULARY) IVPB PRN (19:17)
[2018-01-10] MEDS ORDERED: CHLORHEXIDINE GLUCONATE 4% CLEANSER FOR DECOLONIZATION TP SCH (22:00)
[2018-01-10] MEDS ORDERED: MUPIROCIN 2% TOPICAL OINTMENT FOR DECOLONIZATION NS SCH (22:00)
[2018-01-11] MEDS: HEPARIN NA (PORCINE) 5,000 UNITS/ML 1ML VIAL SQ SCH ×2 (06:38→14:56)
[2018-01-11 06:39] LABS: BASO % 0.6 % (0-2.0); EOS % 2.2 % (0-4.5); HEMATOCRIT 31.3 % (35.4-49); LYMPH % 25.8 % (8-40); MEAN CELL VOLUME 84.5 fl (80-96); MEAN PLT VOLUME 8.1 fl (7.5-11.1); MONO % 11.4 % (3.8-10.2); PLATELET COUNT 174 K/MM3 (134-434); RBC 3.71 M/mm3 (4.00-5.60); RDW 15.9 % (11.9-15.9); WHITE BLOOD COUNT 4.7 K/mm3 (4.0-10.0)
[2018-01-11 07:08] LABS: CHLORIDE 105 mmol/L (98-107); POTASSIUM 3.9 mmol/L (3.5-5.1); SODIUM 138 mmol/L (136-145)
[2018-01-11 07:18] LABS: ALBUMIN 3.4 g/dl (3.4-5.0); ALK PHOS 90 U/L (45-117); ANION GAP 8 (8-16); BILIRUBIN,TOTAL 0.7 mg/dL (0.2-1.0); BLOOD UREA NITROGEN 25 mg/dL (7-18); CALCIUM 8.9 mg/dL (8.5-10.1); CO2 25 mmol/L (21-32); CREATININE 1.6 mg/dL (0.7-1.3); GLUCOSE,RANDOM 99 mg/dL (74-106); PHOSPHOROUS 4.1 mg/dL (2.5-4.9); SGOT/AST 21 U/L (15-37); SGPT/ALT 30 U/L (12-78); TOT PROT 7.3 g/dl (6.4-8.2)
--- NOTE | 2018-01-11 08:09 | PN ---
Progress Note, Physician Chief Complaint: Feeling better TELE: NSR, APCs. No further NSVT - Current Medication List Current Medications: Active Medications Acetaminophen (Ofirmev Injection -) 1,000 mg IVPB Q6H PRN PRN Reason: MODERATE PAIN Aspirin (Ecotrin -) 81 mg PO DAILY [facility] Carvedilol (Coreg -) 25 mg PO BID [facility] Last Admin: 01/10/18 23:24 Dose: 25 mg Chlorhexidine Gluconate (Hibiclens For Decolonization -) 1 applic TP HS [facility] Last Admin: 01/10/18 23:29 Dose: Not Given Duloxetine HCl (Cymbalta -) 60 mg PO DAILY [facility] Furosemide (Lasix Injection -) 40 mg IVPUSH DAILY [facility] Heparin Sodium (Porcine) (Heparin -) 5,000 unit SQ TID [facility] Last Admin: 01/11/18 06:38 Dose: 5,000 unit Lisinopril (Prinivil) 40 mg PO DAILY [facility] Mupirocin (Bactroban Ointment (For Decolonization) -) 1 applic NS BID [facility] Stop: 01/14/18 21:59 Last Admin: 01/10/18 23:30 Dose: Not Given Nifedipine (Procardia Xl -) 60 mg PO DAILY [facility] Potassium Chloride (Potassium Chloride Oral Liquid) 40 meq PO ONCE ONE Stop: 01/11/18 08:06 Tamsulosin HCl (Flomax -) 0.4 mg PO DAILY@0830 [facility] - Objective Vital Signs: Vital Signs Temperature 98.4 F 01/11/18 05:00 Pulse Rate 66 01/11/18 05:00 Respiratory Rate 20 01/11/18 05:00 Blood Pressure 143/96 01/11/18 05:00 O2 Sat by Pulse Oximetry (%) 97 01/10/18 21:00 Constitutional: Yes: No Distress, Calm Eyes: Yes: Conjunctiva Clear Cardiovascular: Yes: Regular Rate and Rhythm Respiratory: Yes: CTA Bilaterally Gastrointestinal: Yes: Soft Edema: No Neurological: Yes: Alert, Oriented ...Motor Strength: WNL Labs: CBC, BMP 01/11/18 05:30 01/11/18 05:30 Laboratory Tests 01/09/18 01/09/18 01/09/18 14:11 14:58 20:30 WBC Hgb Plt Count Sodium Potassium BUN Creatinine Magnesium Creatine Kinase 135 Troponin I 0.25 H 0.25 H B-Natriuretic Peptide 3524.86 H 01/10/18 01/10/18 01/10/18 02:17 05:30 05:30 WBC 5.2 Hgb 9.2 L Plt Count 154 Sodium 141 Potassium 3.4 L BUN 21 H Creatinine 1.4 H Magnesium 2.0 Creatine Kinase 126 Troponin I 0.24 H B-Natriuretic Peptide 01/11/18 01/11/18 05:30 05:30 WBC 4.7 Hgb 10.0 L Plt Count 174 Sodium 138 Potassium 3.9 BUN Creatinine 1.6 H Magnesium Creatine Kinase Troponin I B-Natriuretic Peptide - ....Imaging EKG: Image Reviewed Assessment/Plan IMP: Known hypertensive CM Chronic HTN, LVH, hypertensive heart disease Medication non-adherence Non-obstx CAD, on multiple caths Mildly dilated ascending aorta Known hx NSVT Chronic diastolic CHF, with acute decompensation due to uncontrolled HTN, not taking meds for 1 week REC: 1. D/C IV Lasix. 2. Resumed Coreg, STELLA-I. D/C Norvasc, was on Procardia XL 3. Echo w/ conventric LVH, Mildly reduced EF. 4. Keep K+ >4 Mg2+ >2 5. NSVT occurs in setting of hypoK+; no further ectopy noted with K repleted. 6. Mild TnI elevation w/ normal CK due to CHF 7. Patient had previous EP work up for NSVT at [facility], will review those records.
[2018-01-11] MEDS ORDERED: TAMSULOSIN HCL 0.4 MG CAP.ER.24H (FP) PO SCH (08:30)
--- NOTE | 2018-01-11 08:55 | PN ---
Physical Exam: SUBJECTIVE: Patient seen and examined this morning at bedside. Complains of feeling congested and has a cough productive of yellow phelgm. Additionally felt some sweats when given his medication. Had 1 BM yesterday, normal for him. Denies any urinary sx. His belly pain has improved significantly, was 7-8/ 10, down to 2/10 this morning. Denies fevers, chills, chest pain, SOB, nausea, vomiting, diarrhea, constipation. OBJECTIVE: Vital Signs Period Temp Pulse Resp BP Sys/Rosado Pulse Ox Last 24 Hr 98.2 F-98.6 F 63-85 20-20 111-162/75-104 97-99 Vital Signs Temp 98.4 F 01/11/18 05:00 Pulse 66 01/11/18 05:00 Resp 20 01/11/18 05:00 BP 143/96 01/11/18 05:00 Pulse Ox 97 01/10/18 21:00 Intake & Output 01/10/18 01/10/18 01/11/18 11:59 23:59 11:59 Output Total 2100 Balance -2100 Weight 96.751 kg 94.529 kg Output: Urine 2100 Void 2100 Other: Voiding Method Urinal Toilet Toilet # Unmeasured Voids Void 2 1 Bowel Movement No Weight Measurement Method Built in Bedscale Standing Scale GENERAL: The patient is awake, alert, and fully oriented, in no acute distress THROAT: Oropharynx clear without exudates, moist mucous membranes NECK: JVD impoved LUNGS: Breath sounds equal, Improved however few fine rales heard throughout HEART: Regular rate and rhythm, S1, S2 without murmur, rub or gallop. ABDOMEN: Soft, nontender, nondistended, normoactive bowel sounds. Mild periumbilical tenderness has resolved. EXTREMITIES: LE Edema improved significantly, No edema now Laboratory Results - last 24 hr 01/10/18 01/11/18 01/11/18 05:30 05:30 05:30 WBC 4.7 RBC 3.71 L Hgb 10.0 L Hct 31.3 L MCV 84.5 MCH 27.0 MCHC 32.0 RDW 15.9 Plt Count 174 MPV 8.1 Absolute Neuts (auto) 2.8 Neutrophils % 60.0 Lymphocytes % 25.8 D Monocytes % 11.4 H Eosinophils % 2.2 Basophils % 0.6 Nucleated RBC % 0 Sodium 138 Potassium 3.9 Chloride 105 Carbon Dioxide 25 Anion Gap 8 BUN 25 H Creatinine 1.6 H Creat Clearance w eGFR 44.62 Random Glucose 99 Hemoglobin A1c % 4.3 L D Calcium 8.9 Phosphorus 4.1 Magnesium 2.0 Total Bilirubin 0.7 AST 21 ALT 30 Alkaline Phosphatase 90 Total Protein 7.3 Albumin 3.4 Active Medications Acetaminophen (Ofirmev Injection -) 1,000 mg IVPB Q6H PRN PRN Reason: MODERATE PAIN Aspirin (Ecotrin -) 81 mg PO DAILY [facility] Carvedilol (Coreg -) 25 mg PO BID [facility] Last Admin: 01/10/18 23:24 Dose: 25 mg Chlorhexidine Gluconate (Hibiclens For Decolonization -) 1 applic TP HS [facility] Last Admin: 01/10/18 23:29 Dose: Not Given Duloxetine HCl (Cymbalta -) 60 mg PO DAILY [facility] Furosemide (Lasix -) 40 mg PO DAILY [facility] Heparin Sodium (Porcine) (Heparin -) 5,000 unit SQ TID [facility] Last Admin: 01/11/18 06:38 Dose: 5,000 unit Lisinopril (Prinivil) 40 mg PO DAILY [facility] Mupirocin (Bactroban Ointment (For Decolonization) -) 1 applic NS BID [facility] Stop: 01/14/18 21:59 Last Admin: 01/10/18 23:30 Dose: Not Given Nifedipine (Procardia Xl -) 60 mg PO DAILY [facility] Potassium Chloride (Potassium Chloride Oral Liquid) 40 meq PO ONCE ONE Stop: 01/11/18 08:06 Tamsulosin HCl (Flomax -) 0.4 mg PO DAILY@0830 [facility] ASSESSMENT/PLAN: 56 yo m h/o refractory HTN, ?asthma, NIDDM, kidney stone, aortic aneurysm, HFpEF admitted to ICU for acute CHF exacerbation. 1. Hypertensive Urgency - On Admission: DBP > 125, Elevated Cr, Troponemia - Likely due to non-compliance - BP equal in both arms - Echo pending - D/C Norvasc - Continue Nifedipine 60 mg PO DAILY - Continue Carvedilol 25 mg PO BID [facility] - Continue Furosemide 40 mg IVPUSH DAILY [facility] - Continue Lisinopril 40 mg PO DAILY [facility] - Cardiology consulted (Dr. Bull), Appreciate rec's 2. Acute on Chronic diastolic HF - Continue Furosemide 40 mg IVPUSH DAILY [facility] - Echo pending - Strict I&O, daily weights 3. ESHA - Creatinine 1.4 today - Improved with Furosemide 40 mg - Monitor closely 4. Tropinemia - 0.25-->0.25-->0.24 - Likely demand ischemia due to volume overload and HTN - Echo pending - Cardiac cath last year at [facility], will obtain records 5. PSVT/NSVT - Sustanined VTach for 16 beats on Tele monitor - Asymptomatic - Continue Carvedilol 25 mg PO BID [facility] - Keep Mag > 2.5 and K > 4.5; lytes repleated as needed 6. [place]-umbilical pain - Diffuse tenderness around umbilicus for months - Has improved since diuresis - Imaging reviewed - Tolerating diet 7. NIDDM - Controlled off medications - A1c 4.3% - Continue to monitor 8. BPH - Continue Tamsulosin 0.4 mg PO 9. Prophylaxis - DVT: subq heparin Dispo: Transfer to tele
[2018-01-11] MEDS ORDERED: POTASSIUM CHLORIDE ORAL LIQUID 20 MEQ/15 ML PO ONE (09:15)
[2018-01-11] MEDS: CARVEDILOL 25 MG TABLET (FP) PO SCH (09:23)
--- NOTE | 2018-01-11 09:58 | EKG ---
Test Reason : Blood Pressure : / mmHG Vent. Rate : 065 BPM Atrial Rate : 065 BPM P-R Int : 178 ms QRS Dur : 098 ms QT Int : 442 ms P-R-T Axes : 038 038 185 degrees QTc Int : 459 ms SINUS RHYTHM WITH PREMATURE ATRIAL COMPLEXES POSSIBLE LEFT ATRIAL ENLARGEMENT LEFT VENTRICULAR HYPERTROPHY WITH REPOLARIZATION ABNORMALITY ABNORMAL ECG WHEN COMPARED WITH ECG OF 09-JAN-2018 21:42, NO SIGNIFICANT CHANGE WAS FOUND Confirmed by ADALID DUARTE, JAIME ([id number]) on 01/11/2018 9:57:34 AM Referred By: Mayela JENKINS Confirmed By:JAIME CORDOBA MD
[2018-01-11] MEDS ORDERED: SPIRONOLACTONE 25 MG TABLET (FP) PO SCH (10:00)
[2018-01-11] MEDS ORDERED: DULoxetine HCL 30 MG CAPSULE.DR (FP) PO SCH (10:00)
[2018-01-11] MEDS ORDERED: ASPIRIN COATED 81 MG TABLET.EC PO SCH (10:00)
[2018-01-11] MEDS ORDERED: LISINOPRIL 20 MG TABLET (FP) PO SCH (10:00)
[2018-01-11] MEDS ORDERED: FUROSEMIDE 40 MG/4 ML INJECTABLE VIAL IVPUSH SCH (10:00)
[2018-01-11] MEDS ORDERED: NIFEdipine E.R 60 MG TABLET (UD) PO SCH (10:00)
--- NOTE | 2018-01-11 10:06 | EKG ---
Test Reason : Blood Pressure : / mmHG Vent. Rate : 078 BPM Atrial Rate : 078 BPM P-R Int : 176 ms QRS Dur : 094 ms QT Int : 432 ms P-R-T Axes : 063 041 163 degrees QTc Int : 492 ms SINUS RHYTHM WITH PREMATURE ATRIAL COMPLEXES POSSIBLE LEFT ATRIAL ENLARGEMENT LEFT VENTRICULAR HYPERTROPHY MARKED T-WAVE ABNORMALITY, CONSIDER INFEROLATERAL ISCHEMIA PROLONGED QT ABNORMAL ECG WHEN COMPARED WITH ECG OF 09-JAN-2018 13:56, PREMATURE ATRIAL COMPLEXES ARE NOW PRESENT Confirmed by ADALID DUARTE, JAIME ([id number]) on 01/11/2018 10:05:50 AM Referred By: Confirmed By:JAIME CORDOBA MD
--- NOTE | 2018-01-11 10:19 | PN ---
Progress Note, Physician History of Present Illness: PULMONARY ALERT,FEELING BETTER,LESS DYSPNEIC,+ COUGH YELLOW SPUTUM,-CP. O2 SAT 99% RA. SLEEP SCREEN + SEVERE OSAS AHI 56.I - Current Medication List Current Medications: Active Medications Acetaminophen (Ofirmev Injection -) 1,000 mg IVPB Q6H PRN PRN Reason: MODERATE PAIN Aspirin (Ecotrin -) 81 mg PO DAILY [facility] Last Admin: 01/11/18 09:23 Dose: 81 mg Carvedilol (Coreg -) 25 mg PO BID [facility] Last Admin: 01/11/18 09:23 Dose: 25 mg Duloxetine HCl (Cymbalta -) 60 mg PO DAILY [facility] Last Admin: 01/11/18 09:22 Dose: 60 mg Furosemide (Lasix -) 40 mg PO DAILY [facility] Heparin Sodium (Porcine) (Heparin -) 5,000 unit SQ TID [facility] Last Admin: 01/11/18 06:38 Dose: 5,000 unit Lisinopril (Prinivil) 40 mg PO DAILY [facility] Last Admin: 01/11/18 09:23 Dose: 40 mg Nifedipine (Procardia Xl -) 60 mg PO DAILY [facility] Last Admin: 01/11/18 09:22 Dose: 60 mg Tamsulosin HCl (Flomax -) 0.4 mg PO DAILY@0830 [facility] Last Admin: 01/11/18 09:23 Dose: 0.4 mg - Objective Vital Signs: Vital Signs Temperature 98.2 F 01/11/18 09:26 Pulse Rate 73 01/11/18 09:26 Respiratory Rate 18 01/11/18 09:26 Blood Pressure 136/95 01/11/18 09:26 O2 Sat by Pulse Oximetry (%) 97 01/10/18 21:00 Constitutional: Yes: Well Nourished, Calm Eyes: Yes: WNL HENT: Yes: WNL Neck: Yes: WNL Cardiovascular: Yes: Regular Rate and Rhythm, S1, S2 Respiratory: Yes: Wheezes (FEW SCATTERED WHEEZES) Gastrointestinal: Yes: Normal Bowel Sounds, Soft Extremities: Yes: WNL Edema: No Labs: CBC, BMP 01/11/18 05:30 01/11/18 05:30 Assessment/Plan Problem List - Problems (1) HOCM (hypertrophic obstructive cardiomyopathy) Code(s): I42.1 - OBSTRUCTIVE HYPERTROPHIC CARDIOMYOPATHY (2) Acute CHF (congestive heart failure) Code(s): I50.9 - HEART FAILURE, UNSPECIFIED (3) CHF (congestive heart failure) Code(s): I50.9 - HEART FAILURE, UNSPECIFIED Qualifiers: Qualified Code(s): I50.9 - Heart failure, unspecified (4) DVT prophylaxis Code(s): [id number] - (5) Hypertensive urgency Code(s): I10 - ESSENTIAL (PRIMARY) HYPERTENSION (6) Nephrolithiasis Code(s): N20.0 - CALCULUS OF KIDNEY (7) Renal insufficiency Code(s): N28.9 - DISORDER OF KIDNEY AND URETER, UNSPECIFIED ASSESSMENT/PLAN: Acute on chronic CHF exacerbation HCM Nonobstructive CAD Nephrolithiasis Hypertensive urgency CKD Sleep Apnea Smoker home medications Lasix O2 as needed VTE prophylaxis Smoking cessation Formal sleep studies outpatient chest ct low dose for lung cancer screening DR MAE
--- NOTE | 2018-01-11 12:50 | PN ---
Teaching Attending Note Name of Resident: Tracee Rizvi ATTENDING PHYSICIAN STATEMENT I saw and evaluated the patient. I reviewed the resident's note and discussed the case with the resident. I agree with the resident's findings and plan as documented. SUBJECTIVE:asymptomatic. states abdominal pain and leg swelling has resolved. denies Cp, SOB< fever, chills, N/V/C/D OBJECTIVE: Last Vital Signs Temp Pulse Resp BP Pulse Ox 98.2 F 73 18 136/95 97 01/11/18 09:26 01/11/18 09:26 01/11/18 09:26 01/11/18 09:26 01/10/18 21:00 Intake & Output 01/08/18 01/09/18 01/10/18 01/11/18 23:59 23:59 23:59 23:59 Intake Total 240 Output Total 1999 2099 Balance -1999 240 Weight 218 lb 11.2 oz 213 lb 4.8 oz 208 lb 6.4 oz General NAD CV S1 S2 RRR no murmur/rub/gallop no chest wall tenderness Lungs CTA no wheezing/rales/rhonchi ABdomen soft NT/ND Extremities no pedal edema ASSESSMENT AND PLAN: 57yo M with PMH HTN, diastolic CHF, DM, NSVT and BPH presented to the ER with CP andd SOB and B/L pedal edema gradually worsening in setting of non compliance 1. HTN urgency- due to non-compliance. much improved. cont current medications at this time 2. Acute on chronic diastolic and systolic CHF-10lb weight loss since admission. looks euvolemic. agree with cardio about switching to lasix po at this time. echo results noted. educated on daily weights and diet compliance. 3. ESHA- due to pre-renal. slight bump up due to lasix. pt agreeable to following up [facility] in 2 days to have labs repeated. explained to him that kidney function is elevated and needs to be monitored. 4. Tropinemia- likely demand due to volume overload and HTN. flat trend. had cardiac cath last year at [facility]. known to have clean cath in the past. 5. Hypokalemia- resolved goal to >4.5 6. Hx of DM- A1c 4.3 and patient has not been taking his home medications. can continue with diet control 7. abdominal pain-liekly due to volume overload and HTN urgency. now resolved. CT abdomen/pelvis negative for acute pathology. tolerating diet. no further workup 8. NSVT-no repeat episodes noted on the monitor. 9. BPH- flomax 10. DVT ppx- hep sq 11. d/c home. discussed importance of medication compliance and follow up. discussed ways of improving compliance and how to make these things routine where it wont feel like its impacting his life. agreeable to f/u with PMD in 2- 3 days for BP check and lab work
--- NOTE | 2018-01-11 14:53 | DS ---
Physical Exam: SUBJECTIVE: Patient seen and examined this morning at bedside. Complains of feeling congested and has a cough productive of yellow phelgm. Additionally felt some sweats when given his medication. Had 1 BM yesterday, normal for him. Denies any urinary sx. His belly pain has improved significantly, was 7-8/10, down to 2/10 this morning. Denies fevers, chills, chest pain, SOB, nausea, vomiting, diarrhea, constipation. OBJECTIVE: Vital Signs Period Temp Pulse Resp BP Sys/Rosado Pulse Ox Last 24 Hr 98.2 F-98.6 F 63-82 18-20 111-143/75-104 97-98 Vital Signs Temp 98.4 F 01/11/18 14:00 Pulse 67 01/11/18 14:00 Resp 18 01/11/18 09:26 BP 118/80 01/11/18 14:00 Pulse Ox 98 01/11/18 09:00 Intake & Output 01/10/18 01/11/18 01/11/18 23:59 11:59 23:59 Intake Total 240 240 Balance 240 240 Weight 94.529 kg Intake: Oral 240 240 Other: Voiding Method Toilet Toilet # Unmeasured Voids Void 2 1 2 Bowel Movement Yes Weight Measurement Method Standing Scale PHYSICAL EXAM GENERAL: The patient is awake, alert, and fully oriented, in no acute distress THROAT: Oropharynx clear without exudates, moist mucous membranes NECK: JVD impoved LUNGS: Breath sounds equal, Improved however few fine rales heard throughout HEART: Regular rate and rhythm, S1, S2 without murmur, rub or gallop. ABDOMEN: Soft, nontender, nondistended, normoactive bowel sounds. Mild periumbilical tenderness has resolved. EXTREMITIES: LE Edema improved significantly, No edema now LABS Laboratory Results - last 24 hr 01/11/18 01/11/18 05:30 05:30 WBC 4.7 RBC 3.71 L Hgb 10.0 L Hct 31.3 L MCV 84.5 MCH 27.0 MCHC 32.0 RDW 15.9 Plt Count 174 MPV 8.1 Absolute Neuts (auto) 2.8 Neutrophils % 60.0 Lymphocytes % 25.8 D Monocytes % 11.4 H Eosinophils % 2.2 Basophils % 0.6 Nucleated RBC % 0 Sodium 138 Potassium 3.9 Chloride 105 Carbon Dioxide 25 Anion Gap 8 BUN 25 H Creatinine 1.6 H Creat Clearance w eGFR 44.62 Random Glucose 99 Calcium 8.9 Phosphorus 4.1 Magnesium 2.0 Total Bilirubin 0.7 AST 21 ALT 30 Alkaline Phosphatase 90 Total Protein 7.3 Albumin 3.4 IMAGING: - CXR (01/09): CHF - CT Abdomen Pelvis: Limited study with scarring and calcification of the lower pole of the left kidney. 3 mm left pelvic renal stone without evidence of obstructive uropathy. Fat-containing of milk hernia. Prostatic enlargement. Please see above discussion. - DUPLEX: No evidence of deep venous thrombosis. - CXR (01/10): Since 01/09/2018, again is a large heart, unfolded aorta and there is slightly less congestive change. Pleural fluid is difficult to see. There is some atelectasis or scarring at the left base. Follow-up recommended. - CXR (01/11): Improvement - EKG (01/09 @ 14:11): NORMAL SINUS RHYTHM, POSSIBLE LEFT ATRIAL ENLARGEMENT, LEFT VENTRICULAR HYPERTROPHY WITH REPOLARIZATION ABNORMALITY, PROLONGED QT - EKG (01/09 @ 21:42): SINUS RHYTHM WITH PREMATURE ATRIAL COMPLEXES, POSSIBLE LEFT ATRIAL ENLARGEMENT, LEFT VENTRICULAR HYPERTROPHY, MARKED T-WAVE ABNORMALITY , CONSIDER INFEROLATERAL ISCHEMIA, PROLONGED QT, ABNORMAL ECG WHEN COMPARED WITH ECG OF 09-JAN-2018 13:56, PREMATURE ATRIAL COMPLEXES ARE NOW PRESENT - EKG (01/11): SINUS RHYTHM WITH PREMATURE ATRIAL COMPLEXES, POSSIBLE LEFT ATRIAL ENLARGEMENT, LEFT VENTRICULAR HYPERTROPHY WITH REPOLARIZATION ABNORMALITY , ABNORMAL ECG WHEN COMPARED WITH ECG OF 09-JAN-2018 21:42, NO SIGNIFICANT CHANGE WAS FOUND - ECHO: EF 45%, Mild to moderate global hypokinesis of the LV, LA is severly dilated, RA is moderately dilated, Moderate MR, Mild TR, Trace AR, Trace Pulmonic valve regurg HOSPITAL COURSE: Date of Admission:01/09/18 Date of Discharge: 01/11/18 Prehospital course as per Dr. Jonnathan Hernandez 56 y/o man with hx of poor compliance, HTN, CAD, MR, nephrolithiasis, and mildly dilated aorta who presented to the ED w/ progressively worsening shortness of breath. He endorses worsening dyspnea, orthopnea, and b/l LE edema x 1 month. In addition, he's also having chronic productive cough and pain around his belly button for a month. He admitted not being compliant with his medications especially lasix 40mg daily. Patient was intubated in the ICU for CHF exacerbation in 01/2017 and transferred to [facility] from [facility] for repeat ischemic evaluation and EPS. Denies fever, chills, dyspnea, constipation, diarrhea, weakness, appetite change. Hospital course Patient was admitted to the ICU for Hypertensive emergency and Heart failure with reduced ejection fraction. Cardiology and pulmonology were consulted. He responded well to the IV Lasix (lost about 10lbs) and PO Procardia. He was eventually transitioned to PO Lasix. His abdominal pain resolved and he was able to tolerate diet. His potassium was repleted. His Creatinine remained elevated likely due to the lasix. We discussed the importance of strict medication compliance. He was also told to follow up with his slitter and rewinder and pcp to monitor his BP and kidney function. Minutes to complete discharge: 38 Discharge Summary Reason For Visit: CONGESTIVE HEART FAILURE Current Active Problems Abdominal pain (Acute) Acute CHF (congestive heart failure) (Acute) HOCM (hypertrophic obstructive cardiomyopathy) (Acute) Hypertensive emergency (Acute) Condition: Improved - Instructions Diet, Activity, Other Instructions: You are being discharged on a diuretic (Lasix). It is very important you take this medication as prescribed. Please monitor your weights at home daily. If your weight increases by 2lbs in one day, please contact Dr. Rooney as soon as possible as you may need to increase your dose. Your home medications have changed. Refer to medication list for these changes. IT is VERY important that you take your medications as instructed and not miss doses. Get pill boxes for the days of the week and separate your pills every week so that you know if you took them. ALso setting a daily reminder on your cell phone to alert you to take your medications may help. Please limit your fluid intake to 2 liters a day. You should follow a Low salt diet, No added salt, No table salt. Please follow up with your Primary physician Dr. Guillen in 2-3 days so he can recheck your blood pressure and monitor your Kidney function. Please return to the ER if you experience any worrisome symptoms including fevers, leg swelling, chest pain or shortness of breath. Referrals: Sebastian Guillen MD [Primary Care Provider] - 1 Week Janak Rooney MD [Staff Physician] - 1 Week Disposition: HOME - Home Medications Comprehensive Discharge Medication List: Ambulatory Orders Tamsulosin HCl 0.4 mg PO DAILY 11/09/11 Duloxetine HCl [Cymbalta -] 60 mg PO DAILY 06/29/16 Aspirin Coated [Ecotrin -] 81 mg PO DAILY #30 tab 01/19/17 Cholecalciferol (Vitamin D3) [Vitamin D3] 50,000 unit PO WEEKLY 09/16/17 Zolpidem Tartrate [Ambien] 10 mg PO PRN PRN 09/16/17 Carvedilol [Coreg -] 25 mg PO BID #60 tablet 01/11/18 Furosemide [Lasix -] 40 mg PO DAILY #30 tablet 01/11/18 Lisinopril [Prinivil] 40 mg PO DAILY #30 tablet 01/11/18 Nifedipine ER [Procardia XL -] 60 mg PO DAILY #30 tab.er.24 01/11/18 This patient is new to me today: No Emergency Visit: Yes ED Registration Date: 01/09/18 Care time: The patient presented to the Emergency Department on the above date and was hospitalized for further evaluation of their emergent condition. Critical Care patient: No - Discharge Referral Referred to [facility] No
[2018-01-11] MEDS ORDERED: guaiFENesin 200 MG/10 ML 10 ML UNIT-DOSE CUPS PO ONE (15:00)
[2018-01-11 18:14] VITALS: BP 125/80; PULSE 65; TEMP 98.2
[2018-01-12] MEDS ORDERED: FUROSEMIDE 40 MG TABLET (FP) PO SCH (10:00)
== END 2018-01-11 20:30 | disposition home or self-care (01) | DRG 194 ==
LOC: JER 13:36 → JERBED 17:14 → JICU 21:11 → J4W 01-10 20:13
PROVIDERS: ADMIT Hospitalist; ATTEND Internal Medicine
DX: I13.0 Hypertensive heart and chronic kidney disease with heart failure and stage 1 through stage 4 chronic kidney disease, or unspecified chronic kidney disease (principal); I50.33 Acute on chronic diastolic (congestive) heart failure; J96.21 Acute and chronic respiratory failure with hypoxia; E11.9 Type 2 diabetes mellitus without complications; F32.9 Major depressive disorder, single episode, unspecified; N40.0 Benign prostatic hyperplasia without lower urinary tract symptoms; I25.10 Atherosclerotic heart disease of native coronary artery without angina pectoris; I16.1 Hypertensive emergency; R10.9 Unspecified abdominal pain; N17.9 Acute kidney failure, unspecified; E87.6 Hypokalemia; I47.1 Supraventricular tachycardia; E87.70 Fluid overload, unspecified; I42.1 Obstructive hypertrophic cardiomyopathy; N18.9 Chronic kidney disease, unspecified; G47.30 Sleep apnea, unspecified; N20.0 Calculus of kidney; I16.0 Hypertensive urgency; F17.210 Nicotine dependence, cigarettes, uncomplicated
CPT/HCPCS: 36415; 71045-TC-FY; 74176-TC; 80048; 80053; 80061; 82550; 83036; 83721; 83735; 83880; 84100; 84443; 84484; 85025; 85027; 93005; 93010; 93306-TC; 93970-TC; 99285-25; J0131; J1644

== ENCOUNTER 2018-06-14 10:09 | Inpatient (IN) | payer OTHER ==
[2018-06-14 10:29] VITALS: BMI 27.3
[2018-06-14] MEDS ORDERED: FUROSEMIDE 40 MG/4 ML INJECTABLE VIAL IVPUSH ONE ×2 (10:44→18:00)
--- NOTE | 2018-06-14 10:46 | PDOC ---
Attending Attestation - Medical Decision Making EXAM#: TYPE/EXAM: RESULT: [id number] RAD/CHEST X-RAY PORTABLE* Chest: Shortness of breath. Since 01/11/2018, again noted is a normal heart, unfolded aorta and prominent hilar markings. There are some congestive findings with some basilar infiltrative changes more on the right than the left. There may be some atelectasis. Angles are sharp. The bones and soft tissues are intact. Correlation follow-up recommended. Reported By: Jose Amezquita MD 06/14/18 10:36. Documentation prepared by IJEOMA Coelho, acting as medical affairs leader for Yani Brooks MD. 06/14/18 11:43 <Leonor Frank - Last Filed: 06/14/18 11:43> - Resident Resident Name: Hyun Harris - ED Attending Attestation I have performed the following: I have examined & evaluated the patient, The case was reviewed & discussed with the resident, I agree w/resident's findings & plan, Exceptions are as noted - HPI HPI: 06/14/18 11:24 57yo M hx CHF EF 45% 12/2017, sleep apnea, HTN, smoker presents to the ED with 1 day of progressive SOB, orthopnea, cough. Pt reports missing his water pill and all his meds yesterday. PT arrives to ED on CPAP. Per EMS, pt was in pulm edema in the field, was given 3 SL nitro as BP was in 200s systolic with good response , BP now 115 systolic. Pt reports similar sxs when he misses his water pills. + LE edema. Denies CP, fever, headache, dizziness, weakness, numbness, abd pain. - Physicial Exam PE: 06/14/18 11:26 agree with resident exam - Critical Care Time Total Critical Care Time: 60 Critical Care Statement: The care of this patient involved high complexity decision making to prevent further life threatening deterioration of the patient 's condition and/or to evaluate & treat vital organ system(s) failure or risk of failure. - Medical Decision Making 06/14/18 11:26 57yo M hx CHF, aortic aneurysm, HTN presents to the ED with acute pulmonary edema in the setting of medication non compliance. Feels better on bipap at this time. CXR with evidence of congestion. Plan for labs, IV lasix, anticipate admission. Will try to wean off bipap. <Yani Brooks - Last Filed: 06/19/18 02:20> Heart Score/ECG Review #1 06/14/18 11:28 Twelve-lead EKG was performed and reviewed by me. Sinus rhythm, rate 69. Normal axis. No ST elevations. T wave inversions in 1, aVL, V4 to V6. When compared to EKG from December 2017, no significant changes. <Yani Brooks - Last Filed: 06/19/18 02:20>
--- NOTE | 2018-06-14 11:13 | PDOC ---
History of Present Illness - General Chief Complaint: Shortness of Breath Stated Complaint: Shortness of Breath Time Seen by Provider: 06/14/18 10:15 History Source: Patient Exam Limitations: No Limitations - History of Present Illness Initial Comments: Pt is a 57 yo M, with PMH of systolic CHF (last EF 12/2017 45%), HTN cardiomyopathy, HTN , LVH, CAD, dilated aorta, NSVT, and anemia, who is presenting with complaints of SOB, orthopnea, PND, b/l LE edema, and cough productive of yellow sputum since yesterday. Pt states over the holidays he has been eating more salt heavy food, and has not been regularly taking his medications. Last night, he noticed mild SOB. During the night he had to sit up to catch his breath, and tried to open the window for fresh air, which did not improve his SOB. This morning, his son found him in tripod position and called EMS. EMS provided 0.4 mg SL nitro x3 and placed pt on CPAP, which he said minimally improved his symptoms. Pt has been admitted multiple times for CHF exacerbation after medication non-compliance, including an intubation in 2016. Pt states he normally has multiple pillow orthopnea and mild chest pain when he takes deep breaths. Pt denies any fevers/chills, headache, vision changes, palpitations, nausea/vomiting, abdominal pain, urinary symptoms, or diarrhea/ constipation. Social: Pt 1/2 ppd smoker, denies alcohol or drug use. Pt denies any recent travel or sick contacts. Surgical: multiple cardiac caths, no stents placed. Family: no relevant history 06/14/18 15:10 Past History - Travel Traveled outside of the country in the last 30 days: No Close contact w/someone who was outside of country & ill: No - Past Medical History Allergies/Adverse Reactions: Allergies Allergy/AdvReac Type Severity Reaction Status Date / Time adhesive tape Allergy Verified 06/14/18 10:29 Home Medications: Ambulatory Orders Tamsulosin HCl 0.4 mg PO DAILY 11/09/11 Duloxetine HCl [Cymbalta -] 60 mg PO DAILY 06/29/16 Aspirin Coated [Ecotrin -] 81 mg PO DAILY #30 tab 01/19/17 Cholecalciferol (Vitamin D3) [Vitamin D3] 50,000 unit PO WEEKLY 09/16/17 Zolpidem Tartrate [Ambien] 10 mg PO PRN PRN 09/16/17 Carvedilol [Coreg -] 25 mg PO BID #60 tablet 01/11/18 Furosemide [Lasix -] 40 mg PO DAILY #30 tablet 01/11/18 Lisinopril [Prinivil] 40 mg PO DAILY #30 tablet 01/11/18 Nifedipine ER [Procardia XL -] 60 mg PO DAILY #30 tab.er.24 01/11/18 Anemia: No Asthma: No Cancer: No Cardiac Disorders: Yes (A.FIB FROM AORTIC ANEURYSM.) CVA: No COPD: No CHF: No Dementia: No Diabetes: No GI Disorders: Yes (COLON ADENOMA, NAUSEA) Disorders: Yes (BPH) HTN: Yes Hypercholesterolemia: No Kidney Stones: Yes Liver Disease: No Seizures: No Thyroid Disease: No - Surgical History Abdominal Surgery: No Appendectomy: No Cardiac Surgery: No Cholecystectomy: No GI Surgery: (KIDNEY SX) Lung Surgery: No Neurologic Surgery: No Orthopedic Surgery: No - Suicide/Smoking/Psychosocial Hx Smoking Status: Yes Smoking History: Never smoked Have you smoked in the past 12 months: No Number of Cigarettes Smoked Daily: 8 Information on smoking cessation initiated: No 'Breaking Loose' booklet given: 01/09/18 Hx Alcohol Use: No Drug/Substance Use Hx: No Substance Use Type: Marijuana Hx Substance Use Treatment: No Review of Systems - Review of Systems Able to Perform ROS?: Yes Is the patient limited Serbian proficient: No Constitutional: Yes: Weight Stable. No: Chills, Diaphoresis, Fever, Loss of Appetite, Weakness HEENTM: No: Recent change in vision, Nose Congestion, Throat Swelling, Difficulty Swallowing Respiratory: Yes: See HPI, Cough, Orthopnea, Shortness of Breath, SOB with Exertion, SOB at Rest, Productive cough. No: Stridor, Wheezing, Hemoptysis Cardiac (ROS): Yes: Chest Pain (mid-sternal with deep breaths), Edema (b/l pedal edema). No: Irregular Heart Rate, Lightheadedness, Palpitations, Syncope , Chest Tightness ABD/GI: No: Constipated, Diarrhea, Nausea, Poor Appetite, Poor Fluid Intake, Vomiting, Indigestion, Abdominal cramping : No: Burning, Dysuria, Frequency, Hematuria, Pain, Urgency Musculoskeletal: No: Back Pain, Joint Pain Integumentary: No: Rash Neurological: No: Headache, Seizure, Weakness, Unsteady Gait, Dizziness Psychiatric: No: Sleep Pattern Change, Change in Appetite Endocrine: No: Increased Urine, Change in Weight Hematologic/Lymphatic: Yes: Anemia. No: Blood Clots, Easy Bleeding, Easy Bruising All Other Systems: Reviewed and Negative *Physical Exam - Vital Signs Last Vital Signs Temp Pulse Resp BP Pulse Ox 77 28 H 135/99 100 06/14/18 10:17 06/14/18 10:09 06/14/18 10:09 06/14/18 10:17 - Physical Exam General Appearance: Yes: Nourished, Appropriately Dressed, Apparent Distress ( pt arrived on CPAP, dyspneic and uncomfortable) HEENT: positive: EOMI, WILBERT, Normal ENT Inspection, Normal Voice, Pharynx Normal , Hearing Grossly Normal. negative: Scleral Icterus (R), Scleral Icterus (L), Pharyngeal Erythema, Tonsillar Exudate, Tonsillar Erythema, Rhinorrhea Neck: positive: Trachea midline, Normal Thyroid, Supple. negative: Tender, Rigid, Decreased range of motion, Lymphadenopathy (R), Lymphadenopathy (L) Respiratory/Chest: positive: Respiratory Distress, Accessory Muscle Use, Labored Respiration, Rapid RR, Decreased Breath Sounds, Rhonchi (coarse breath sounds b/l, worse in L lung arboleda). negative: Chest Tender, Lungs Clear, Normal Breath Sounds, Crackles, Wheezing, Dullness Cardiovascular: positive: Regular Rhythm, Regular Rate, S1, S2. negative: Edema , JVD, Murmur Vascular Pulses: Carotid (R): 4+, Carotid (L): 4+ Gastrointestinal/Abdominal: positive: Normal Bowel Sounds, Flat, Soft. negative : Tender, Organomegaly, Pulsatile Mass, Distended, Guarding, Rebound Rectal Exam: positive: deferred Lymphatic: negative: Adenopathy, Tenderness Musculoskeletal: positive: Normal Inspection. negative: CVA Tenderness Extremity: positive: Normal Capillary Refill, Normal Inspection, Normal Range of Motion, Pelvis Stable. negative: Tender Integumentary: positive: Normal Color, Dry, Warm. negative: Jaundice, Clammy, Diaphoresis, Rash Neurologic: positive: nursing surgical services director II-XII NML intact, Fully Oriented, Alert, Normal Mood/ Affect, Normal Response, Motor Strength 5/5 Moderate Sedation - Procedure Monitoring Vital Signs: Procedure Monitoring Vital Signs Temperature Pulse Rate 77 06/14/18 10:17 Respiratory Rate 28 H 06/14/18 10:09 Blood Pressure 135/99 06/14/18 10:09 O2 Sat by Pulse Oximetry (%) 100 06/14/18 10:17 Heart Score/ECG Review - History History: Moderately suspicious - Electrocardiogram EKG: Non specific repolarization disturbance - Age Age: 45-65 - Risk Factors Risk Factors Heart Score: Yes Hx Hypertension Based on the list above the patient has:: 1-2 risk factors - Troponin Troponin: >/=3x normal limit - Score Heart Score - Total: 6 - ECG Intrepretation Rhythm: PAC(s) - [place]: Normal ED Treatment Course - LABORATORY CBC & Chemistry Diagram: 06/14/18 11:35 06/14/18 11:35 - RADIOLOGY Radiology Studies Ordered: Category Date Time Status CHEST X-RAY PORTABLE* [RAD] Stat Radiology 06/14/18 10:18 Ordered Medical Decision Making - Medical Decision Making Pt was seen at bedside, also will be seen by attending Dr. Brooks. Pt presenting with complaints of SOB, orthopnea, PND, b/l LE edema, and cough productive of yellow sputum since yesterday. Pt states over the holidays he has been eating more salt heavy food, and has not been regularly taking his medications. Last night, he noticed mild SOB. During the night he had to sit up to catch his breath, and tried to open the window for fresh air, which did not improve his SOB. This morning, his son found him in tripod position and called EMS. EMS provided 0.4 mg SL nitro x3 and placed pt on CPAP, which he said minimally improved his symptoms. Pt has been admitted multiple times for CHF exacerbation after medication non-compliance, including an intubation in 2017. Pt states he normally has multiple pillow orthopnea and mild chest pain when he takes deep breaths. Pt denies any fevers/chills, headache, vision changes, palpitations, nausea/vomiting, abdominal pain, urinary symptoms, or diarrhea/ constipation. Rectal temp 96.5, RR in 20s, pt brought in by EMS on CPAP, saturating 100%. Respiratory placed pt on BIPAP (10/5, 40%, rate 14). PE showed coarse breath sounds b/l, worse over the L lung arboleda. Considering CHF exacerbation vs viral URI vs new pneumonia vs ACS. Ordered work-up including CBC, CMP, cardiac profile, BNP, Mg, Phos, lactic acid , EKG, UA, chest x-ray. Provided 40 mg IV lasix for improvement of dyspnea/fluid overload. Will continue to reassess pt and monitor for symptomatic improvement. [id number] RAD/CHEST X-RAY PORTABLE* Chest: Shortness of breath. Since 01/11/2018, again noted is a normal heart, unfolded aorta and prominent hilar markings. There are some congestive findings with some basilar infiltrative changes more on the right than the left. There may be some atelectasis. Angles are sharp. The bones and soft tissues are intact. Correlation follow-up recommended. 06/14/18 11:11 CBC WNL for pt (baseline anemia) Influenza negative. CMP and cardiac profile pending. ECG: HR 69, Qtc 477; mild ST elevation in V3 (~0.5 box); no significant changes seen from prior ECG taken December 2017. Premature atrial complexes with bigeminy pattern. 06/14/18 12:12 CMP generally WNL. Trop 0.26, BNP 3000s (has been elevated at this level during last CHF exacerbation). Will provide 325 mg PO aspirin. 06/14/18 12:40 Hospitalist team paged. Will repeat troponin ~14:30 Consult order placed for Dr. Rooney. 06/14/18 12:58 Hospitalist team at bedside to see pt. Pt resting comfortably, admission order changed per protocol. Awaiting bed upstairs. UA showed no infection. 06/14/18 13:15 Second troponin level sent and is pending. 06/14/18 15:24 Pt was taken upstairs and was stable in the department on BIPAP. 06/14/18 18:39 *DC/Admit/Observation/Transfer Diagnosis at time of Disposition: Ascending aortic aneurysm, Troponin I above reference range CHF exacerbation Qualifiers: Heart failure type: systolic Qualified Code(s): I50.23 - Acute on chronic systolic (congestive) heart failure CKD (chronic kidney disease) Qualifiers: Chronic kidney disease stage: unspecified stage Qualified Code(s): N18.9 - Chronic kidney disease, unspecified - Discharge Dispostion Condition at time of disposition: Stable Decision to Admit order: Yes - Referrals - Patient Instructions - Post Discharge Activity
[2018-06-14] MEDS ORDERED: FUROSEMIDE 40 MG/4 ML INJECTABLE VIAL ONE (11:41)
[2018-06-14 11:57] LABS: VENOUS PC02 40.8 mmHg (38-52); VENOUS PH 7.37 (7.32-7.42); VENOUS PO2 77.3 mmHg (28-48)
[2018-06-14 12:08] LABS: BASO % 0.4 % (0-2.0); EOS % 1.9 % (0-4.5); HEMATOCRIT 30.4 % (35.4-49); HEMOGLOBIN 9.3 GM/dL (11.7-16.9); LYMPH % 13.9 % (8-40); MCH 26.1 pg (25.7-33.7); MCHC 30.5 g/dl (32.0-35.9); MEAN CELL VOLUME 85.5 fl (80-96); MEAN PLT VOLUME 7.7 fl (7.5-11.1); MONO % 8.4 % (3.8-10.2); NEUT % 75.4 % (42.8-82.8); PLATELET COUNT 136 K/MM3 (134-434); RBC 3.55 M/mm3 (4.00-5.60); WHITE BLOOD COUNT 4.9 K/mm3 (4.0-10.0)
[2018-06-14 12:17] LABS: INR 1.1 (0.83-1.09)
[2018-06-14 12:29] LABS: ALBUMIN 3.1 g/dl (3.4-5.0); ALK PHOS 82 U/L (45-117); ANION GAP 7 MMOL/L (8-16); BILIRUBIN,TOTAL 0.5 mg/dL (0.2-1); BLOOD UREA NITROGEN 26 mg/dL (7-18); CALCIUM 8.2 mg/dL (8.5-10.1); CHLORIDE 112 mmol/L (98-107); CO2 22 mmol/L (21-32); CREATININE 1.6 mg/dL (0.55-1.3); GLUCOSE,RANDOM 103 mg/dL (74-106); MAGNESIUM 2.2 mg/dL (1.8-2.4); N-TERMINAL BNP 3193.3 pg/ml (5-125); PHOSPHOROUS 4.1 mg/dL (2.5-4.9); POTASSIUM 4.1 mmol/L (3.5-5.1); SGOT/AST 19 U/L (15-37); SGPT/ALT 21 U/L (13-61); SODIUM 142 mmol/L (136-145); TOT PROT 6.7 g/dl (6.4-8.2)
[2018-06-14] MEDS ORDERED: ASPIRIN 325 MG TABLET PO ONE (12:34)
[2018-06-14] MEDS ORDERED: ASPIRIN 325 MG TABLET ONE (12:44)
[2018-06-14 13:07] LABS: URINE APPEARANCE CLEAR; URINE BILIRUBIN NEGATIVE (<2.0 mg/dL); URINE COLOR STRAW; URINE GLUCOSE (UA) NEGATIVE (NEGATIVE); URINE KETONE NEGATIVE (NEGATIVE); URINE LEUK ESTERASE NEGATIVE (NEGATIVE); URINE NITRITE NEGATIVE (NEGATIVE); URINE PROTEIN 2+ (NEGATIVE); URINE UROBILINOGEN NEGATIVE mg/dL (0.2-1.0)
[2018-06-14 13:14] LABS: URINE MUCUS RARE
--- NOTE | 2018-06-14 14:16 | HP ---
CHIEF COMPLAINT: edema, orthopnea PCP: Dr. Patricia HISTORY OF PRESENT ILLNESS: 57 y/o M with diastolic CHF (EF 45%, moderate MR; 12/2017), aortic aneurysm (w mild dilation), FABRICIO, HTN with CM, nonobstructive CAD (as on past multiple caths done at ?[place] ?[facility]), past hx lithotripsy for L nephrolithiasis, who presents for edema and orthopnea over the past day. As per pt and , over the last wk pt has been non-compliant with his lasix as well as "numerous BP meds" since they have made him feel exhausted and "wiped out." Over the last day, noticed that pt had orthopnea and was sitting up to catch his breath. During this time, he also endorsed cough with sputum (does not know color) as well as mild chest discomfort a/w tingling in his fingers b/l. Denies [place], fever, chills , or changes in bowel function. Hx + for active smoking, sick contacts- and daughter both with cough and myalgias. EMS was called and placed pt on BIPAP 10/5, 40% Fi02 and gave pt 3x NG 0.4 as pt was with BP 200/110. His BP has since improved in ED to 135/99. Pt was admitted in 12/2017 to [facility] ICU for HTN emergency, CHF exacerbation and was eventually transitioned to PO lasix, procardia before d/c. He has a significant cardiac hx and has been seen by Dr. Rooney in past. Has had numerous caths done at [facility], last one done 2-3 yrs prior with nonobstructive dz. On past admissions, has also had demand ischemia with trops ~ 0.2 a/w exacerbation. ER course was notable for: (1) asa 325 x 1 (2) lasix 40mg IVP (3) cont'd on BiPAP 10/5,40% Fi02 Recent Travel: denies PAST MEDICAL HISTORY: as above PAST SURGICAL HISTORY: "numerous L sided lithotripsy for stones" as well as "other procedures" for stones, numerous other caths (with past nonobstructive dz ) Social History: currently does not work. 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 2-1/3 ppd for pas 30-35 yrs. interested in quitting Alcohol: socially on holidays Drugs: marijuana Family History: sister-ovarian [place]. denies cardiac hx in other family members Allergies adhesive tape Allergy (Verified 06/14/18 10:29) can only use paper tape HOME MEDICATIONS: Home Medications Medication Instructions Recorded Tamsulosin HCl 0.4 mg PO DAILY 11/09/11 Duloxetine HCl [Cymbalta -] 60 mg PO DAILY 06/29/16 Aspirin Coated [Ecotrin -] 81 mg PO DAILY #30 tab 01/19/17 Cholecalciferol (Vitamin D3) 50,000 unit PO WEEKLY 09/16/17 [Vitamin D3] Zolpidem Tartrate [Ambien] 10 mg PO PRN PRN 09/16/17 Carvedilol [Coreg -] 25 mg PO BID #60 tablet 01/11/18 Furosemide [Lasix -] 40 mg PO DAILY #30 tablet 01/11/18 Lisinopril [Prinivil] 40 mg PO DAILY #30 tablet 01/11/18 Nifedipine ER [Procardia XL -] 60 mg PO DAILY #30 tab.er.24 01/11/18 medications have been verified with pt verbally at bedside. states that he knows his meds REVIEW OF SYSTEMS CONSTITUTIONAL: Absent: fever, chills, diaphoresis, generalized weakness, malaise, loss of appetite, weight change HEENT: Absent: rhinorrhea, nasal congestion, throat pain, throat swelling, difficulty swallowing, mouth swelling, ear pain, eye pain, visual changes CARDIOVASCULAR: Absent: chest pain, syncope, palpitations, irregular heart rate, lightheadedness , peripheral edema RESPIRATORY: +SOB, orthopnea, cough Absent: dyspnea with exertion, wheezing, stridor, hemoptysis GASTROINTESTINAL: +abdominal distension Absent: abdominal pain, nausea, vomiting, diarrhea, constipation, melena, hematochezia GENITOURINARY: Absent: dysuria, frequency, urgency, hesitancy, hematuria, flank pain, genital pain MUSCULOSKELETAL: Absent: myalgia, arthralgia, joint swelling, back pain, neck pain SKIN: Absent: rash, itching, pallor HEMATOLOGIC/IMMUNOLOGIC: Absent: easy bleeding, easy bruising, lymphadenopathy, frequent infections ENDOCRINE: Absent: unexplained weight gain, unexplained weight loss, heat intolerance, cold intolerance NEUROLOGIC: Absent: headache, focal weakness or paresthesias, dizziness, unsteady gait, seizure, mental status changes, bladder or bowel incontinence PSYCHIATRIC: Absent: anxiety, depression, suicidal or homicidal ideation, hallucinations. PHYSICAL EXAMINATION Vital Signs - 24 hr 06/14/18 06/14/18 06/14/18 10:09 10:17 11:00 Pulse Rate 73 77 Respiratory 28 H Rate Blood Pressure 135/99 O2 Sat by Pulse 100 100 100 Oximetry (%) GENERAL: Smells like smoke. Pleasant; on BiPAP. sitting up, in NAD HEAD: Normal with no signs of trauma. EYES: Pupils equal, round and reactive to light, extraocular movements intact, sclera anicteric EARS, NOSE, THROAT: Ears normal, nares patent, oropharynx clear without exudates. NECK: Normal range of motion, supple LUNGS: +crackles at bases (L>R), intermittent coughing HEART: Regular rate and rhythm, normal S1 and S2 without murmur, rub or gallop. ABDOMEN: Soft, nontender, mildly distended, normoactive bowel sounds. LOWER EXTREMITIES: 2+ pt pulses, warm, well-perfused. +pitting edema b/l 2+ NEUROLOGICAL: Cranial nerves II-XII intact. 5/5 motor strength in UE, LE PSYCHIATRIC: Cooperative. Laboratory Results 06/14/18 06/14/18 06/14/18 10:18 11:23 11:35 WBC 4.9 Hgb 9.3 L Hct 30.4 L Plt Count 136 D VBG pH 7.37 POC VBG pCO2 40.8 POC VBG pO2 77.3 H Mixed VBG HCO3 22.8 Sodium Influenza A (Rapid) Negative Influenza B (Rapid) Negative 06/14/18 06/14/18 11:35 11:35 POC VBG pO2 Sodium 142 Potassium 4.1 Chloride 112 H Carbon Dioxide 22 BUN 26 H Creatinine 1.6 H Troponin I 0.26 H B-Natriuretic Peptide 3193.3 H CXR: with congestive changes, blunting of costophrenic angles. possible dev infiltrates L>R EKG: without significant changes from prior. with PACs, inferolateral ischemia II, III, V4-V6. qtc 477ms ASSESSMENT/PLAN: 57 y/o M with diastolic CHF (EF 45%; 12/2017), aortic aneurysm (w mild dilation) , FABRICIO, HTN with CM, nonobstructive CAD (as on past multiple caths done at [facility]), past hx lithotripsy for L nephrolithiasis, who presents for edema and orthopnea over the past day. #Acute on chronic diastolic CHF exacerbation -likely 2/2 noncompliance. has not been taking lasix over past wk as well as other optimizing BP meds. with demand ischemia has had previously on past admissions up to ~0.2 -s/p lasix 40mg IVPx 1 ED. will give additional dose 20 mg IVP lasix 6pm. to continue on 40mg IVP lasix starting tomorrow. can transition to PO once vol improves -strict i/o, Na controlled 2g, fluid restrict. last ECHO 01/04 moderate MR, EF 45 % -trend trops. without sig EKG changes likely 2/2 demand -cardio consult; Dr. Rooney. has seen in past -trial off BiPAP; with normalized pH on VBG -Mg>2, K>4 -tele monitoring #non-obstructive CAD -as seen on multiple past caths -asa 81mg qd #HTN - uncontrolled -c/w coreg 25 BID, lisinopril 40mg qd procardia 60mg qd #ESHA -appears euvolemic -with recent Cr baseline 1.3. not pre-renal, also less likely 2/2 lasix as has been non-compliant -continue to monitor #F/E/N avoid overload as with CHF continue to follow lytes; kg Mg, K. has had NSVT past admissions d/t hypoK Na controlled diet #PPX DVT: Hep 5k SQ TID #Dispo monitoring on tele. cont to follow volume status. may be able to d/c tomorrow if improves with IV lasix, can transition to PO to also be seen by cardio. Visit type - Emergency Visit Emergency Visit: Yes ED Registration Date: 06/14/18 Care time: The patient presented to the Emergency Department on the above date and was hospitalized for further evaluation of their emergent condition. - New Patient This patient is new to me today: Yes Date on this admission: 06/14/18 - Critical Care Critical Care patient: No
--- NOTE | 2018-06-14 16:32 | CON.CARD ---
Consult Consult Specialty:: Cardiology Referred by:: Dr. Brooks Reason for Consultation:: CHF - History of Present Illness Chief Complaint: SOB History of Present Illness: 57M chronic HTN, hypertensive heart disease, mild and stable thoracic aortic aneursym, NSVT, non-obstx CAD, chronic diastolic CHF, NSVT admitted with SOB found to be in decompensated CHF volume overloaded on CXR. Sig elevated BNP. Of note, patient's BP found to be markedly elevated in ER. Received IV Lasix and BiPAP with improvement in sx. He is intermittently non-compliant with medical Rx. Has had several cardiac caths after presenting here with similar episodes--> non -obstructive. - History Source History Provided By: Patient, Medical Record - Past Medical History Cardio/Vascular: Yes: CAD (non-obstx), CHF (Chronic diastolic CHF), HTN, Other ( NSVT) Renal/: Yes: Renal Inusuff, Renal Calculi Psych: Yes: Depression - Alcohol/Substance Use Hx Alcohol Use: No History of Substance Use: reports: Marijuana - Smoking History Smoking history: Never smoked Have you smoked in the past 12 months: No Aproximately how many cigarettes per day: 8 - Social History Usual Living Arrangement: With Spouse ADL: Independent Occupation: currently unemployed Home Medications - Allergies Allergies/Adverse Reactions: Allergies Allergy/AdvReac Type Severity Reaction Status Date / Time adhesive tape Allergy Verified 06/14/18 10:29 - Home Medications Home Medications: Ambulatory Orders Tamsulosin HCl 0.4 mg PO DAILY 11/09/11 Duloxetine HCl [Cymbalta -] 60 mg PO DAILY 06/29/16 Aspirin Coated [Ecotrin -] 81 mg PO DAILY #30 tab 01/19/17 Cholecalciferol (Vitamin D3) [Vitamin D3] 50,000 unit PO WEEKLY 09/16/17 Zolpidem Tartrate [Ambien] 10 mg PO PRN PRN 09/16/17 Carvedilol [Coreg -] 25 mg PO BID #60 tablet 01/11/18 Furosemide [Lasix -] 40 mg PO DAILY #30 tablet 01/11/18 Lisinopril [Prinivil] 40 mg PO DAILY #30 tablet 01/11/18 Nifedipine ER [Procardia XL -] 60 mg PO DAILY #30 tab.er.24 01/11/18 Family Disease History - Family Disease History Family History: Unremarkable (denies early CAD) Review of Systems Findings/Remarks: see HPI - Review of Systems Constitutional: reports: No Symptoms Cardiovascular: reports: Edema, Shortness of Breath Respiratory: reports: Exercise Intolerance, SOB on Exertion Gastrointestinal: denies: No Symptoms, Abdominal Pain, Bloating, Constipation, Diarrhea, Dysphagia, Indigestion, Melena, Nausea, Rectal Bleeding, Vomiting, Vomiting Blood, Other Genitourinary: denies: No Symptoms, Burning, Discharge, Dysuria, Flank Pain, Frequency, Hematuria, Incontinence, Lesions, Menses, Pain, Testicular Mass, Testicular Pain, Testicular Swelling, Urgency, Vaginal Bleeding, Other Breasts: denies: No Symptoms Reported, See HPI, Breast Implants, Discharge from Nipple, Lumps, Pain, Skin Changes, Other Musculoskeletal: denies: No Symptoms, Back Pain, Crepitus, Decreased ROM, Extremity Pain, Joint Pain, Joint Swelling, Muscle Pain, Muscle Cramps, Muscle Weakness, Other Integumentary: denies: No Symptoms, Blister, Bruising, Change in Color, Eczema, Erythema, Incision, Lesions, Lump, Pallor, Pruritis, Rash, Wound, Other Neurological: denies: No Symptoms, Change in LOC, Change in Speech, Confusion, Dizziness, Headache, Incoordination, Numbness, Parasthesia, Pre-Existing Deficit , Seizure, Syncope, Tremors, Unsteady Gait, Weakness, Other Endocrine: denies: No Symptoms, Excessive Sweating, Flushing, Increased Hunger, Increased Thirst, Intolerance to Cold, Intolerance to Heat, Unexplained Weight Gain, Unexplained Weight Loss, Other Psychiatric: denies: No Symptoms, Altered Sleep Pattern, Anxiety, Depression, Hallucinations, Panic, Paranoia, Suicidal, Other - Risk Factors Known Risk Factors: Yes: Hypertension, Smoking, Other (non-obstx CAD) Vital Signs: Vital Signs Temperature Pulse Rate 62 06/14/18 15:33 Respiratory Rate 20 06/14/18 15:33 Blood Pressure 145/110 H 06/14/18 15:33 O2 Sat by Pulse Oximetry (%) 100 06/14/18 15:33 Constitutional: Yes: Calm Respiratory: Yes: Other (bibasilar rales 1/3 up) Gastrointestinal: Yes: Soft Cardiovascular: Yes: Regular Rate and Rhythm JVD: Yes Carotid Bruit: No PMI: Non-Displaced Heart Sounds: Yes: S1, S2, S3, S4 Edema: Yes Edema: LLE: 2+, RLE: 2+ Neurological: Yes: Alert - Other Data Labs, Other Data: CBC, BMP 06/14/18 11:35 06/14/18 11:35 INR, PTT INR 1.10 (0.83-1.09) H 06/14/18 11:35 Troponin, BNP 06/14/18 06/14/18 06/14/18 11:35 11:35 15:17 Troponin I 0.25 H 0.26 H 0.23 H B-Natriuretic Peptide 3193.3 H Troponin, BNP 06/14/18 06/14/18 06/14/18 11:35 11:35 15:17 Troponin I 0.25 H 0.26 H 0.23 H B-Natriuretic Peptide 3193.3 H NSR 69bpm, LVH, TWO V4-V6, atrial premature contractions. LAE Echo: Pending Imaging - Results Chest X-ray: Image Reviewed (CHF: increased PVC) EKG: Image Reviewed Problem List - Problems (1) Acute on chronic diastolic CHF (congestive heart failure) Code(s): I50.33 - ACUTE ON CHRONIC DIASTOLIC (CONGESTIVE) HEART FAILURE (2) Chronic hypertension Code(s): I10 - ESSENTIAL (PRIMARY) HYPERTENSION (3) Hypertensive heart disease Code(s): I11.9 - HYPERTENSIVE HEART DISEASE WITHOUT HEART FAILURE Qualifiers: Heart failure presence: with heart failure Heart failure chronicity: acute on chronic (4) Troponin I above reference range Code(s): R74.8 - ABNORMAL LEVELS OF OTHER SERUM ENZYMES (5) Ascending aortic aneurysm Code(s): I71.2 - THORACIC AORTIC ANEURYSM, WITHOUT RUPTURE (6) NSVT (nonsustained ventricular tachycardia) Code(s): I47.2 - VENTRICULAR TACHYCARDIA (7) CAD (coronary artery disease) Assessment/Plan: NON-OBSTRUCTIVE Code(s): I25.10 - ATHSCL HEART DISEASE OF [place] CORONARY ARTERY W/O ANG PCTRS Qualifiers: Coronary Disease-Associated Artery/Lesion type: [place] artery (8) Chronic renal insufficiency Code(s): N18.9 - CHRONIC KIDNEY DISEASE, UNSPECIFIED Qualifiers: Chronic kidney disease stage: stage 2 (mild) Qualified Code(s): N18.2 - Chronic kidney disease, stage 2 (mild) Assessment/Plan IMP: Acute on chronic diastolic CHF secondary to uncontrolled chronic HTN leading to mild elevation in TnI Hypertensive heart disease Medication non-adherence CKD Stable ascending aortic aneursym NSVT Non -obstructive CAD REC: 1. IV Lasix, daily weights and NIPPV as needed 2. Telemetry- prior hx of NSVT: previously evaluated by EP deemed not candidate for ICD Has had runs of up to 15 beats while K+ was low Will need to maintain K+ > 4, Mg2+ > 2 3. Echo 4. To continue home meds: Nifedipine ER, Carvedilol and Lisinopril. Will follow Thank you.
--- NOTE | 2018-06-14 16:47 | EKG ---
Test Reason : Blood Pressure : / mmHG Vent. Rate : 069 BPM Atrial Rate : 069 BPM P-R Int : 178 ms QRS Dur : 098 ms QT Int : 446 ms P-R-T Axes : 040 028 160 degrees QTc Int : 477 ms SINUS RHYTHM WITH PREMATURE ATRIAL COMPLEXES IN A PATTERN OF BIGEMINY POSSIBLE LEFT ATRIAL ENLARGEMENT LEFT VENTRICULAR HYPERTROPHY T WAVE ABNORMALITY, CONSIDER INFEROLATERAL ISCHEMIA PROLONGED QT ABNORMAL ECG WHEN COMPARED WITH ECG OF 11-JAN-2018 08:34, NO SIGNIFICANT CHANGE WAS FOUND Confirmed by KEATON GRANADOS MD ([id number]) on 06/14/2018 4:46:58 PM Referred By: Confirmed By:KEATON GRANADOS MD
[2018-06-14] MEDS: CARVEDILOL 25 MG TABLET (FP) PO SCH (21:46)
[2018-06-14] MEDS: HEPARIN NA (PORCINE) 5,000 UNITS/ML 1ML VIAL SQ SCH (21:47)
[2018-06-15] MEDS: HEPARIN NA (PORCINE) 5,000 UNITS/ML 1ML VIAL SQ SCH ×3 (05:57→22:19)
--- NOTE | 2018-06-15 06:13 | PN ---
Teaching Attending Note Name of Resident: Daily Enrique ATTENDING PHYSICIAN STATEMENT I saw and evaluated the patient. I reviewed the resident's note and discussed the case with the resident. I agree with the resident's findings and plan as documented. SUBJECTIVE: This is a 57 year old man with a history of chronic systolic and diastolic heart failure, HTN with hypertensive cardiovascular disease, thoracic aortic aneurysm, NSVT, FABRICIO, nonobstructive CAD, BPH, nephrolithiasis who comes to the ED complaining of leg swelling and SOB while laying in bed. He reports having a cough and chest pressure. His reports that last night, he had to sit up to breathe better. He has not been compliant with his meds. He denies fever, chills. This morning, EMS was called. He was given SLNTG x3 and placed on BiPAP with improvement. OBJECTIVE: HEART: S1S2, RRR LUNGS: Bilateral rales 1/2 way up both lungs ABDOMEN: Soft, non-tender, non-distended, normal BS EXTREMITIES: 2+ edema Home Medications Medication Instructions Recorded Tamsulosin HCl 0.4 mg PO DAILY 11/09/11 Duloxetine HCl [Cymbalta -] 60 mg PO DAILY 06/29/16 Aspirin Coated [Ecotrin -] 81 mg PO DAILY #30 tab 01/19/17 Cholecalciferol (Vitamin D3) 50,000 unit PO WEEKLY 09/16/17 [Vitamin D3] Zolpidem Tartrate [Ambien] 10 mg PO PRN PRN 09/16/17 Carvedilol [Coreg -] 25 mg PO BID #60 tablet 01/11/18 Furosemide [Lasix -] 40 mg PO DAILY #30 tablet 01/11/18 Lisinopril [Prinivil] 40 mg PO DAILY #30 tablet 01/11/18 Nifedipine ER [Procardia XL -] 60 mg PO DAILY #30 tab.er.24 01/11/18 ASSESSMENT AND PLAN: This is a 57 year old man with a history of chronic systolic and diastolic heart failure, HTN with hypertensive cardiovascular disease, stage 3 CKD, thoracic aortic aneurysm, NSVT, FABRICIO, nonobstructive CAD, BPH, nephrolithiasis who presented to the ED with cough, leg edema, orthopnea. 1. Acute on chronic systolic and diastolic heart failure - Lasix IV - Continue lisinopril, Coreg - Echo - BiPAP as needed - Monitor I&O, weight - Cardiology consult 2. Demand ischemia - Monitor on telemetry - Serial troponins 3. HTN, uncontrolled, with hypertensive cardiovascular disease - Continue Coreg, lisinopril, Procardia XL, Lasix 4. CAD, non-obstructive - Stable - Continue aspirin, Coreg 5. History of NSVT - Monitor on telemetry - Monitor electrolytes - keep K>4.0, Mg>2.0 6. Stage 3 CKD - Baseline creatinine 1.4-1.6 - May have component of cardiorenal syndrome - Monitor creatinine 7. Thoracic aortic aneurysm - Stable 8. Obstructive sleep apnea 9. BPH - Continue Flomax 10. Anemia, likely secondary to chronic illness and fluid overload - Monitor hemoglobin
[2018-06-15] MEDS ORDERED: NIFEdipine E.R 60 MG TABLET (UD) PO SCH (06:15)
[2018-06-15 06:32] LABS: BASO % 0.9 % (0-2.0); EOS % 2.7 % (0-4.5); HEMATOCRIT 29.8 % (35.4-49); HEMOGLOBIN 9.3 GM/dL (11.7-16.9); LYMPH % 27.8 % (8-40); MCH 26.6 pg (25.7-33.7); MCHC 31.3 g/dl (32.0-35.9); MEAN CELL VOLUME 84.9 fl (80-96); MEAN PLT VOLUME 7.6 fl (7.5-11.1); MONO % 10.7 % (3.8-10.2); NEUT % 57.9 % (42.8-82.8); PLATELET COUNT 130 K/MM3 (134-434); RBC 3.51 M/mm3 (4.00-5.60); RDW 14.7 % (11.9-15.9); WHITE BLOOD COUNT 4.9 K/mm3 (4.0-10.0)
[2018-06-15 07:14] LABS: ANION GAP 6 MMOL/L (8-16); BLOOD UREA NITROGEN 28 mg/dL (7-18); CALCIUM 7.8 mg/dL (8.5-10.1); CHLORIDE 110 mmol/L (98-107); CO2 24 mmol/L (21-32); CREATININE 1.6 mg/dL (0.55-1.3); GLUCOSE,RANDOM 93 mg/dL (74-106); MAGNESIUM 1.9 mg/dL (1.8-2.4); PHOSPHOROUS 4.2 mg/dL (2.5-4.9); POTASSIUM 3.7 mmol/L (3.5-5.1); SODIUM 140 mmol/L (136-145)
[2018-06-15] MEDS: TAMSULOSIN HCL 0.4 MG CAP PO SCH (08:22)
--- NOTE | 2018-06-15 08:43 | PN ---
Progress Note, Physician Chief Complaint: Down 5lbs Diuresed 2 L Feeling better TELE: NSR. short runs NSVT. Short self limited runs Atach History of Present Illness: Remains hypertensive - Current Medication List Current Medications: Active Medications Aspirin (Ecotrin -) 81 mg PO DAILY [facility] Carvedilol (Coreg -) 25 mg PO BID [facility] Last Admin: 06/14/18 21:46 Dose: 25 mg Duloxetine HCl (Cymbalta -) 60 mg PO DAILY [facility] Furosemide (Lasix Injection -) 40 mg IVPUSH DAILY [facility] Heparin Sodium (Porcine) (Heparin -) 5,000 unit SQ TID [facility] Last Admin: 06/15/18 05:57 Dose: 5,000 unit Hydralazine HCl (Apresoline -) 10 mg PO TID [facility] Isosorbide Dinitrate (Isordil -) 20 mg PO TID [facility] Lisinopril (Prinivil) 40 mg PO DAILY [facility] Tamsulosin HCl (Flomax -) 0.4 mg PO DAILY@0830 [facility] Last Admin: 06/15/18 08:22 Dose: 0.4 mg - Objective Vital Signs: Vital Signs Temperature 98.2 F 06/15/18 06:00 Pulse Rate 80 06/15/18 06:00 Respiratory Rate 20 06/15/18 06:00 Blood Pressure 174/108 H 06/15/18 06:00 O2 Sat by Pulse Oximetry (%) 100 06/14/18 21:00 Constitutional: Yes: No Distress Eyes: Yes: Conjunctiva Clear Cardiovascular: Yes: Regular Rate and Rhythm, S4 Respiratory: Yes: Other (rales at bases persist, but improved from yesterday) Gastrointestinal: Yes: Soft Edema: Yes Edema: LLE: 1+, RLE: 1+ Neurological: Yes: Alert, Oriented ...Motor Strength: WNL Labs: CBC, BMP 06/15/18 05:30 06/15/18 05:30 INR, PTT INR 1.10 (0.83-1.09) H 06/14/18 11:35 Laboratory Tests 06/15/18 06/15/18 05:30 05:30 WBC 4.9 Hgb 9.3 L Hct 29.8 L Plt Count 130 L Sodium 140 Potassium 3.7 BUN 28 H Creatinine 1.6 H Calcium 7.8 L Phosphorus 4.2 Magnesium 1.9 - ....Imaging EKG: Image Reviewed Problem List - Problems (1) Acute on chronic diastolic CHF (congestive heart failure) Code(s): I50.33 - ACUTE ON CHRONIC DIASTOLIC (CONGESTIVE) HEART FAILURE (2) Chronic hypertension Code(s): I10 - ESSENTIAL (PRIMARY) HYPERTENSION (3) Hypertensive heart disease Code(s): I11.9 - HYPERTENSIVE HEART DISEASE WITHOUT HEART FAILURE Qualifiers: Heart failure presence: with heart failure Heart failure chronicity: acute on chronic (4) Troponin I above reference range Code(s): R74.8 - ABNORMAL LEVELS OF OTHER SERUM ENZYMES (5) Ascending aortic aneurysm Code(s): I71.2 - THORACIC AORTIC ANEURYSM, WITHOUT RUPTURE (6) NSVT (nonsustained ventricular tachycardia) Code(s): I47.2 - VENTRICULAR TACHYCARDIA (7) CAD (coronary artery disease) Code(s): I25.10 - ATHSCL HEART DISEASE OF [place] CORONARY ARTERY W/O ANG PCTRS Qualifiers: Coronary Disease-Associated Artery/Lesion type: [place] artery (8) Chronic renal insufficiency Code(s): N18.9 - CHRONIC KIDNEY DISEASE, UNSPECIFIED Qualifiers: Chronic kidney disease stage: stage 2 (mild) Qualified Code(s): N18.2 - Chronic kidney disease, stage 2 (mild) Assessment/Plan IMP: Acute on chronic diastolic CHF secondary to uncontrolled chronic HTN leading to mild elevation in TnI Hypertensive heart disease Medication non-adherence CKD Stable ascending aortic aneursym NSVT Non -obstructive CAD REC: 1. IV Lasix, daily weights and NIPPV as needed 2. Telemetry- prior hx of NSVT: previously evaluated by EP deemed not candidate for ICD Has had runs of up to 15 beats while K+ was low Will need to maintain K+ > 4, Mg2+ > 2; repleting today 3. Echo 4. To continue home meds: Nifedipine ER, Carvedilol and Lisinopril. Compliance has been an issue: may be difficult for him to take Nitrate/ Hydral mulitple times/ day VNS would be of benefit in helping with compliance w/ BP meds and CHF care plan
[2018-06-15] MEDS: DULoxetine HCL 30 MG CAPSULE.DR (FP) PO SCH (09:37)
[2018-06-15] MEDS: LISINOPRIL 20 MG TABLET (FP) PO SCH (09:37)
[2018-06-15] MEDS: MAGNESIUM OXIDE 400 MG TABLET (FP) PO SCH ×2 (09:37→22:19)
[2018-06-15] MEDS: ASPIRIN COATED 81 MG TABLET.EC PO SCH (09:37)
[2018-06-15] MEDS: CARVEDILOL 25 MG TABLET (FP) PO SCH ×2 (09:37→22:19)
[2018-06-15] MEDS: POTASSIUM CHLORIDE TABS 20 MEQ TABLET.ER (FP) PO SCH (09:37)
[2018-06-15] MEDS: ISOSORBIDE DINITRATE 20 MG TABLET (FP) PO SCH ×2 (09:38→14:05)
[2018-06-15] MEDS: NIFEdipine E.R. 30 MG TABLET (FP) PO SCH (09:38)
[2018-06-15] MEDS ORDERED: FUROSEMIDE 40 MG/4 ML INJECTABLE VIAL IVPUSH SCH (10:00)
--- NOTE | 2018-06-15 13:26 | PN ---
Physical Exam: SUBJECTIVE: Patient seen and examined sitting at bedside this morning with 3L nasal canula oxygen. Endorses improvement in his breathing with diminished shortness of breath, and lower extremity edema. Discussed with patient regarding importance of medication compliance. OBJECTIVE: Vital Signs Period Temp Pulse Resp BP Sys/Rosado Pulse Ox Last 24 Hr 97.7 F-98.4 F 62-86 18-20 143-174/93-110 100-100 GENERAL: The patient is awake, alert, and fully oriented, in no acute distress. HEAD: Normal with no signs of trauma. EYES: PERRLA, extraocular movements intact, sclera anicteric, conjunctiva clear. No ptosis. ENT: Ears normal, nares patent, oropharynx clear without exudates, moist mucous membranes. NECK: Trachea midline, full range of motion, supple. LUNGS: Good inspiratory effort, and air entery b/l. Faint rhonchi auscultated over left lower lung lobe. No wheezes, no crackles. No accessory muscle use. HEART: Regular rate and rhythm, S1, S2 without murmur, rub or gallop. ABDOMEN: Soft, nontender, nondistended. Normoactive bowel sounds X4 quadrants. No guarding, no rebound tenderness. No hepatosplenomegaly palapted or percussed. EXTREMITIES: 2+ radial and dorsalis pedis pulses B/L. Trace edema b/l lower extremities at ankles and dorsal aspect foot. NEUROLOGICAL: Cranial nerves II through XII grossly intact. Strength 5/5 b/l upper and lower extremities. Normal speech. PSYCH: Normal mood, normal affect upon my encounter today SKIN: Warm, dry. Laboratory Results - last 24 hr 06/14/18 06/14/18 06/14/18 12:55 15:17 17:00 WBC RBC Hgb Hct MCV MCH MCHC RDW Plt Count MPV Absolute Neuts (auto) Neutrophils % Lymphocytes % Monocytes % Eosinophils % Basophils % Nucleated RBC % Sodium Potassium Chloride Carbon Dioxide Anion Gap BUN Creatinine Creat Clearance w eGFR Random Glucose Calcium Phosphorus Magnesium Troponin I 0.23 H 0.24 H Urine Color Straw Urine Appearance Clear Urine pH 6.0 Ur Specific [place] 1.008 L Urine Protein 2+ H Urine Glucose (UA) Negative Urine Ketones Negative Urine Blood Negative Urine Nitrite Negative Urine Bilirubin Negative Urine Urobilinogen Negative Ur Leukocyte Esterase Negative Urine WBC (Auto) 3 Urine RBC (Auto) <1 Urine Mucus Rare 06/15/18 06/15/18 05:30 05:30 WBC 4.9 RBC 3.51 L Hgb 9.3 L Hct 29.8 L MCV 84.9 MCH 26.6 MCHC 31.3 L RDW 14.7 Plt Count 130 L MPV 7.6 Absolute Neuts (auto) 2.9 Neutrophils % 57.9 D Lymphocytes % 27.8 D Monocytes % 10.7 H Eosinophils % 2.7 Basophils % 0.9 Nucleated RBC % 0 Sodium 140 Potassium 3.7 Chloride 110 H Carbon Dioxide 24 Anion Gap 6 L BUN 28 H Creatinine 1.6 H Creat Clearance w eGFR 44.46 Random Glucose 93 Calcium 7.8 L Phosphorus 4.2 Magnesium 1.9 Troponin I Urine Color Urine Appearance Urine pH Ur Specific [place] Urine Protein Urine Glucose (UA) Urine Ketones Urine Blood Urine Nitrite Urine Bilirubin Urine Urobilinogen Ur Leukocyte Esterase Urine WBC (Auto) Urine RBC (Auto) Urine Mucus Active Medications Generic Name Dose Route Start Last Admin Trade Name Henrik PRN Reason Stop Dose Admin Aspirin 81 mg 06/15/18 10:00 06/15/18 09:37 Ecotrin - PO 81 mg DAILY HONEY Administration Carvedilol 25 mg 06/14/18 22:00 06/15/18 09:37 Coreg - PO 25 mg BID HONEY Administration Duloxetine HCl 60 mg 06/15/18 10:00 06/15/18 09:37 Cymbalta - PO 60 mg DAILY HONEY Administration Furosemide 40 mg 06/15/18 10:00 06/15/18 09:37 Lasix Injection - IVPUSH 40 mg DAILY HONEY Administration Heparin Sodium (Porcine) 5,000 unit 06/14/18 22:00 06/15/18 05:57 Heparin - SQ 5,000 unit TID HONEY Administration Hydralazine HCl 10 mg 06/15/18 14:00 Apresoline - PO TID HONEY Isosorbide Dinitrate 20 mg 06/15/18 14:00 06/15/18 09:38 Isordil - PO 20 mg TID HONEY Administration Lisinopril 40 mg 06/15/18 10:00 06/15/18 09:37 Prinivil PO 40 mg DAILY HONEY Administration Magnesium Oxide 400 mg 06/15/18 10:00 06/15/18 09:37 Mag-Ox - PO 06/17/18 23:59 400 mg BID HONEY Administration Nifedipine 30 mg 06/15/18 10:00 06/15/18 09:38 Procardia Xl - PO Not Given DAILY HONEY Potassium Chloride 20 meq 06/15/18 10:00 06/15/18 09:37 K-Dur - PO 20 meq DAILY HONEY Administration Tamsulosin HCl 0.4 mg 06/15/18 08:30 06/15/18 08:22 Flomax - PO 0.4 mg DAILY@0830 HONEY Administration ASSESSMENT/PLAN: Patient is a 58 year old male with history of HFpEF, stable thoracic aorta aneurysm, obstructive sleep apnea, hypertension, nonobstructive coronary artery disease, nephrolithiasis who presented with complaint of shortness of breath with lower extremity swelling. Acute exacerbation of chronic CHF -Counselled patient regarding importance of strict medication compliance -Lasix 40mg IV daily. Patient diuresed 2700mL over past 24 hours. -Troponinemia 0.25-> 0.26 -> 0.23 -> 0.24 likely secondary to demand -Cardiology consult (Dr. Rooney) appreciated. Hypertension -Lisinopril 40mg PO daily -Coreg 25mg PO BID -Nifedipine 20mg PO daily CAD -Aspirin 81mg PO daily BPH -Flomax 0.4mg PO daily Anemia, thrombocytopenia -Unclear etiology. Will F/U HIV serology, reticulocyte count, iron studies, folic acid, B12. FEN -No IV fluids -Follow potassium and magnesium -Sodium controlled diet Prophylaxis -Heparin 5000units subq TID Disposition -Continue care in Telemetry floor. Visit type - Emergency Visit Emergency Visit: Yes ED Registration Date: 06/14/18 Care time: The patient presented to the Emergency Department on the above date and was hospitalized for further evaluation of their emergent condition. - New Patient This patient is new to me today: Yes Date on this admission: 06/15/18 - Critical Care Critical Care patient: No - Discharge Referral Referred to [facility] No
[2018-06-15] MEDS ORDERED: hydrALAZINE HCL 10 MG TABLET PO SCH (14:00)
--- NOTE | 2018-06-15 14:41 | ECHO ---
Name: LIA MESA Exam:Adult Echocardiogram Study Date: 06/15/2018 08:42 AM Age: 58 yrs Reason For Study: CHF Height: 76 in Weight: 225 lb BSA: 2.3 m2 MMode/2D Measurements & Calculations IVSd: 1.7 cm Ao root diam: 3.6 cm LVIDd: 6.0 cm LA dimension: 4.4 cm LVIDs: 3.9 cm LVPWd: 1.2 cm LVPWs: 2.2 cm EDV(Teich): 182.7 ml ESV(Teich): 66.6 ml RV S Grayson: 20.5 cm/sec Doppler Measurements & Calculations MV E max grayson: 92.8 cm/sec Ao V2 max: 178.1 cm/sec MV A max grayson: 47.9 cm/sec Ao max P.7 mmHg MV E/A: 1.9 MV dec time: 0.19 sec LV V1 max P.6 mmHg MR max grayson: 497.6 cm/sec LV V1 max: 107.1 cm/sec MR max P.3 mmHg TR max grayson: 241.6 cm/sec PA V2 max: 100.4 cm/sec TR max P.4 mmHg PA max P.0 mmHg Med Peak E' Grayson: 8.0 cm/sec Med E/e': 11.6 Lat Peak E' Grayson: 9.2 cm/sec Lat E/e': 10.1 Procedure A complete two-dimensional transthoracic echocardiogram was performed (2D, M-mode, Doppler and color flow Doppler). Left Ventricle The left ventricle is mildly dilated. There is mild concentric left ventricular hypertrophy. Left shoaib tricular systolic function is mildly reduced. Ejection Fraction = 45-50%. There is mild global hypokinesis of the left ventricle. Right Ventricle The right ventricle is normal in size and function. Atria The left atrium is mildly dilated. The right atrium is mildly dilated. Mitral Valve There is mild mitral regurgitation. Tricuspid Valve There is mild tricuspid regurgitation. There was insufficient TR detected to calculate RV systolic pr essure. Aortic Valve No hemodynamically significant valvular aortic stenosis. No aortic regurgitation is present. Pulmonic Valve There is no pulmonic valvular regurgitation. Great Vessels The aortic root is normal size. Pericardium/Pleura There is no pericardial effusion. Interpretation Summary The left ventricle is mildly dilated. There is mild concentric left ventricular hypertrophy. Left ventricular systolic function is mildly reduced. There is mild global hypokinesis of the left ventricle. The right ventricle is normal in size and function. The left atrium is mildly dilated. The right atrium is mildly dilated. There is mild mitral regurgitation. There is mild tricuspid regurgitation. MD Jose Hathaway 06/15/2018 02:40 PM
[2018-06-15] MEDS ORDERED: PROCHLORPERAZINE INJECTION 10 MG/2 ML VIAL IVPB ONE (15:34)
--- NOTE | 2018-06-15 16:09 | PN ---
Teaching Attending Note Name of Resident: Silas Marcos ATTENDING PHYSICIAN STATEMENT I saw and evaluated the patient. I reviewed the resident's note and discussed the case with the resident. I agree with the resident's findings and plan as documented. SUBJECTIVE: Evaluated him today he is happy with the weight loss and decrease in TRICIA edema OBJECTIVE: well developed M in no distress MMM CVS:S1S2, Regular CTAB Abd:BS+ NT/ND EXT: minimal 1+ pitting edema in the TRICIA, no increased JVP TTE: reviewed: mostly concentric hypertrophy. ASSESSMENT AND PLAN: HF with acute EXACERBATION: Considering that he is mostly HFPEF and in light of non adherence to his medication will C.W nifedipine XR at home and will not change to hydralazine, nitrate. will C/W lasix IV for today and will switch to PO from tomorrow. Keep K>4, Mg>2 I.O Daily weight Diet: he states that he has been eating minimal food at home and encouraged to do better Medication non adherence: counseled and agrees with the plan to be more adherent to his medication regimen. Smoking: he agrees with taking nicotine patch Dispo: ready to be DCed tomorrow, will benefit from VNS for HF and HTN monitoring
[2018-06-16] MEDS: NIFEdipine E.R. 30 MG TABLET (FP) PO SCH ×2 (06:19→09:50)
[2018-06-16] MEDS: HEPARIN NA (PORCINE) 5,000 UNITS/ML 1ML VIAL SQ SCH ×2 (06:21→15:02)
[2018-06-16 06:51] LABS: HEMATOCRIT 30.4 % (35.4-49); HEMOGLOBIN 9.4 GM/dL (11.7-16.9); MCHC 30.9 g/dl (32.0-35.9); MEAN CELL VOLUME 84.3 fl (80-96); MEAN PLT VOLUME 8.4 fl (7.5-11.1); PLATELET COUNT 155 K/MM3 (134-434); RBC 3.61 M/mm3 (4.00-5.60); RDW 14.8 % (11.9-15.9); WHITE BLOOD COUNT 5.5 K/mm3 (4.0-10.0)
[2018-06-16 08:07] LABS: ALK PHOS 74 U/L (45-117); ANION GAP 8 MMOL/L (8-16); BILIRUBIN,TOTAL 0.6 mg/dL (0.2-1); BLOOD UREA NITROGEN 27 mg/dL (7-18); CALCIUM 8.1 mg/dL (8.5-10.1); CHLORIDE 108 mmol/L (98-107); CO2 26 mmol/L (21-32); CREATININE 1.5 mg/dL (0.55-1.3); GLUCOSE,RANDOM 87 mg/dL (74-106); MAGNESIUM 2.2 mg/dL (1.8-2.4); PHOSPHOROUS 3.7 mg/dL (2.5-4.9); POTASSIUM 3.9 mmol/L (3.5-5.1); SGOT/AST 15 U/L (15-37); SGPT/ALT 18 U/L (13-61); SODIUM 141 mmol/L (136-145); TOT PROT 6.7 g/dl (6.4-8.2)
[2018-06-16] MEDS: TAMSULOSIN HCL 0.4 MG CAP PO SCH (09:18)
--- NOTE | 2018-06-16 09:23 | PN ---
Progress Note, Physician Chief Complaint: no chest pain No SOB. TELE: NSR, NSVT- 3 beats/ 4 beats History of Present Illness: weight 225lb down to 216 - Current Medication List Current Medications: Active Medications Aspirin (Ecotrin -) 81 mg PO DAILY PENDING SALE TO [facility] Last Admin: 06/15/18 09:37 Dose: 81 mg Carvedilol (Coreg -) 25 mg PO BID PENDING S[facility] TO [facility] Last Admin: 06/15/18 22:19 Dose: 25 mg Duloxetine HCl (Cymbalta -) 60 mg PO DAILY PENDING SALE TO [facility] Last Admin: 06/15/18 09:37 Dose: 60 mg Furosemide (Lasix -) 40 mg PO DAILY PENDING SALE TO [facility] Heparin Sodium (Porcine) (Heparin -) 5,000 unit SQ TID PENDING SALE TO [facility] Last Admin: 06/16/18 06:21 Dose: 5,000 unit Lisinopril (Prinivil) 40 mg PO DAILY PENDING SALE TO [facility] Last Admin: 06/15/18 09:37 Dose: 40 mg Magnesium Oxide (Mag-Ox -) 400 mg PO BID PENDING SALE TO [facility] Stop: 06/17/18 23:59 Last Admin: 06/15/18 22:19 Dose: 400 mg Nifedipine (Procardia Xl -) 30 mg PO DAILY PENDING SALE TO [facility] Last Admin: 06/16/18 06:19 Dose: 30 mg Potassium Chloride (K-Dur -) 20 meq PO DAILY PENDING SALE TO [facility] Last Admin: 06/15/18 09:37 Dose: 20 meq Tamsulosin HCl (Flomax -) 0.4 mg PO DAILY@0830 [facility]END[facility] Last Admin: 06/16/18 09:18 Dose: 0.4 mg - Objective Vital Signs: Vital Signs Temperature 98.2 F 06/16/18 06:00 Pulse Rate 64 06/16/18 06:00 Respiratory Rate 20 06/16/18 06:00 Blood Pressure 142/100 06/16/18 06:00 O2 Sat by Pulse Oximetry (%) 99 06/16/18 06:30 Constitutional: Yes: No Distress, Calm Eyes: Yes: Conjunctiva Clear Cardiovascular: Yes: Regular Rate and Rhythm Respiratory: Yes: Rhonchi, Other (decreased breath sounds bases) Gastrointestinal: Yes: Soft Edema: No Neurological: Yes: Alert Labs: CBC, BMP 06/16/18 05:30 06/16/18 05:30 INR, PTT INR 1.10 (0.83-1.09) H 06/14/18 11:35 Laboratory Tests 06/16/18 06/16/18 05:30 05:30 WBC 5.5 Hgb 9.4 L Hct 30.4 L Plt Count 155 Sodium 141 Potassium 3.9 BUN 27 H Creatinine 1.5 H Calcium 8.1 L Phosphorus 3.7 Magnesium 2.2 - ....Imaging EKG: Image Reviewed Problem List - Problems (1) Acute on chronic diastolic CHF (congestive heart failure) Code(s): I50.33 - ACUTE ON CHRONIC DIASTOLIC (CONGESTIVE) HEART FAILURE (2) Chronic hypertension Code(s): I10 - ESSENTIAL (PRIMARY) HYPERTENSION (3) Hypertensive heart disease Code(s): I11.9 - HYPERTENSIVE HEART DISEASE WITHOUT HEART FAILURE Qualifiers: Heart failure presence: with heart failure Heart failure chronicity: acute on chronic (4) Troponin I above reference range Code(s): R74.8 - ABNORMAL LEVELS OF OTHER SERUM ENZYMES (5) Ascending aortic aneurysm Code(s): I71.2 - THORACIC AORTIC ANEURYSM, WITHOUT RUPTURE (6) NSVT (nonsustained ventricular tachycardia) Code(s): I47.2 - VENTRICULAR TACHYCARDIA (7) CAD (coronary artery disease) Code(s): I25.10 - ATHSCL HEART DISEASE OF [place] CORONARY ARTERY W/O ANG PCTRS Qualifiers: Coronary Disease-Associated Artery/Lesion type: ambler artery (8) Chronic renal insufficiency Code(s): N18.9 - CHRONIC KIDNEY DISEASE, UNSPECIFIED Qualifiers: Chronic kidney disease stage: stage 2 (mild) Qualified Code(s): N18.2 - Chronic kidney disease, stage 2 (mild) Assessment/Plan IMP: Acute on chronic diastolic CHF secondary to uncontrolled chronic HTN leading to mild elevation in TnI Hypertensive heart disease Medication non-adherence CKD Stable ascending aortic aneursym NSVT Non -obstructive CAD REC: 1. On PO Lasix; NIPPV as needed. 2. Telemetry- prior hx of NSVT: previously evaluated by EP deemed not candidate for ICD Will need to maintain K+ > 4, Mg2+ > 2 3. Echo mild LV dysfx 4. To continue home meds: Nifedipine ER, Carvedilol and Lisinopril. Compliance has been an issue: may be difficult for him to take Nitrate/ Hydral mulitple times/ day VNS would be of benefit in helping with compliance w/ BP meds and CHF care plan
[2018-06-16] MEDS: LISINOPRIL 20 MG TABLET (FP) PO SCH (09:52)
[2018-06-16] MEDS: MAGNESIUM OXIDE 400 MG TABLET (FP) PO SCH (09:52)
[2018-06-16] MEDS: POTASSIUM CHLORIDE TABS 20 MEQ TABLET.ER (FP) PO SCH (09:52)
[2018-06-16] MEDS: CARVEDILOL 25 MG TABLET (FP) PO SCH (09:52)
[2018-06-16] MEDS: DULoxetine HCL 30 MG CAPSULE.DR (FP) PO SCH (09:52)
[2018-06-16] MEDS: ASPIRIN COATED 81 MG TABLET.EC PO SCH (09:52)
[2018-06-16] MEDS ORDERED: FUROSEMIDE 40 MG TABLET (FP) PO SCH (10:00)
--- NOTE | 2018-06-16 14:03 | PN ---
Teaching Attending Note Name of Resident: Jeffrey Hull ATTENDING PHYSICIAN STATEMENT I saw and evaluated the patient. I reviewed the resident's note and discussed the case with the resident. I agree with the resident's findings and plan as documented. SUBJECTIVE: He has no complaints at this time and is ready to be DCed home OBJECTIVE: well developed M in no distress MMM CVS:S1S2, Regular CTAB Abd:BS+ NT/ND EXT: no more edema TTE: reviewed: mostly concentric hypertrophy. Last Vital Signs Temp Pulse Resp BP Pulse Ox 98 F 68 20 138/88 100 06/16/18 09:00 06/16/18 09:00 06/16/18 09:00 06/16/18 09:00 06/16/18 09:00 Current Medications Generic Name Dose Route Start Last Admin Trade Name Freq PRN Reason Stop Dose Admin Aspirin 81 mg 06/15/18 10:00 06/16/18 09:52 Ecotrin - PO 81 mg DAILY HONEY Administration Atorvastatin Calcium 10 mg 06/16/18 22:00 Lipitor - PO HS HONEY Carvedilol 25 mg 06/14/18 22:00 06/16/18 09:52 Coreg - PO 25 mg BID HONEY Administration Duloxetine HCl 60 mg 06/15/18 10:00 06/16/18 09:52 Cymbalta - PO 60 mg DAILY HONEY Administration Furosemide 40 mg 06/16/18 10:00 06/16/18 09:52 Lasix - PO 40 mg DAILY HONEY Administration Heparin Sodium (Porcine) 5,000 unit 06/14/18 22:00 06/16/18 06:21 Heparin - SQ 5,000 unit TID HONEY Administration Lisinopril 40 mg 06/15/18 10:00 06/16/18 09:52 Prinivil PO 40 mg DAILY HONEY Administration Magnesium Oxide 400 mg 06/15/18 10:00 06/16/18 09:52 Mag-Ox - PO 06/17/18 23:59 400 mg BID HONEY Administration Nifedipine 30 mg 06/15/18 10:00 06/16/18 09:50 Procardia Xl - PO Not Given DAILY HONEY Potassium Chloride 20 meq 06/15/18 10:00 06/16/18 09:52 K-Dur - PO 20 meq DAILY HONEY Administration Tamsulosin HCl 0.4 mg 06/15/18 08:30 06/16/18 09:18 Flomax - PO 0.4 mg DAILY@0830 [facility] [place] Administration ASSESSMENT AND PLAN: HF with acute EXACERBATION: now resolved, it was in the setting of non adherence to his medication regimen Considering that he is mostly HFPEF and in light of non adherence to his medication will C.W nifedipine XR at home and will not change to hydralazine, nitrate. Will DC on 40 Mg lasix daily Keep K>4, Mg>2( on Po supplement) Daily weight at home and educated about the plan on DC Diet: he states that he has been eating minimal food at home and encouraged to do better, can get nutrition consult as O/P as he is being DCed today and consult was not done yesterday. Medication non adherence: counseled and agrees with the plan to be more adherent to his medication regimen. Smoking: he agrees with taking nicotine patch Dispo: ready to be DCed home today will benefit from VNS for HF and HTN monitoring
[2018-06-16 19:40] VITALS: BP 133/97; PULSE 66; TEMP 98
[2018-06-16] MEDS ORDERED: ATORVASTATIN CA 10 MG TABLET (FP) PO SCH (22:00)
[2018-06-17 04:13] LABS: SERUM IRON SATURATION 32 % (15-55); TOTAL IRON BINDING CAPACITY 238 ug/dL (250-450); UIBC 162 ug/dL (111-343)
--- NOTE | 2018-06-17 05:00 | DS ---
Physical Exam: SUBJECTIVE: Patient seen and examined sitting at bedside this morning. Endorses improvement in his breathing with diminished shortness of breath, and lower extremity edema. OBJECTIVE: Vital Signs Period Temp Pulse Resp BP Sys/Rosado Pulse Ox Last 24 Hr 97.9 F-98.2 F 64-70 18-20 122-142/87-100 98-100 PHYSICAL EXAM GENERAL: The patient is awake, alert, and fully oriented, in no acute distress. HEAD: Normal with no signs of trauma. EYES: PERRLA, extraocular movements intact, sclera anicteric, conjunctiva clear. No ptosis. ENT: Ears normal, nares patent, oropharynx clear without exudates, moist mucous membranes. NECK: Trachea midline, full range of motion, supple. LUNGS: Good inspiratory effort, and air entery b/l. Faint rhonchi auscultated over left lower lung lobe. No wheezes, no crackles. No accessory muscle use. HEART: Regular rate and rhythm, S1, S2 without murmur, rub or gallop. ABDOMEN: Soft, nontender, nondistended. Normoactive bowel sounds X4 quadrants. No guarding, no rebound tenderness. No hepatosplenomegaly palapted or percussed. EXTREMITIES: 2+ radial and dorsalis pedis pulses B/L. Trace edema b/l lower extremities at ankles and dorsal aspect foot. NEUROLOGICAL: Cranial nerves II through XII grossly intact. Strength 5/5 b/l upper and lower extremities. Normal speech. PSYCH: Normal mood, normal affect upon my encounter today SKIN: Warm, dry. LABS Laboratory Results - last 24 hr 06/16/18 06/16/18 06/16/18 05:30 05:30 05:30 WBC RBC Hgb Hct MCV MCH MCHC RDW Plt Count MPV Retic Count 2.42 H D Sodium 141 Potassium 3.9 Chloride 108 H Carbon Dioxide 26 Anion Gap 8 BUN 27 H Creatinine 1.5 H Creat Clearance w eGFR 47.90 Random Glucose 87 Calcium 8.1 L Phosphorus 3.7 Magnesium 2.2 Iron 76 TIBC 238 L Iron Saturation 32 Ferritin 60.6 Total Bilirubin 0.6 AST 15 ALT 18 Alkaline Phosphatase 74 Total Protein 6.7 Albumin 3.0 L Vitamin B12 403 Serum Folate 14 HIV 1&2 Antibody Screen HIV P24 Antigen 06/16/18 06/16/18 05:30 05:30 WBC 5.5 RBC 3.61 L Hgb 9.4 L Hct 30.4 L MCV 84.3 MCH 26.0 MCHC 30.9 L RDW 14.8 Plt Count 155 MPV 8.4 D Retic Count Sodium Potassium Chloride Carbon Dioxide Anion Gap BUN Creatinine Creat Clearance w eGFR Random Glucose Calcium Phosphorus Magnesium Iron TIBC Iron Saturation Ferritin Total Bilirubin AST ALT Alkaline Phosphatase Total Protein Albumin Vitamin B12 Serum Folate HIV 1&2 Antibody Screen Negative HIV P24 Antigen Negative HOSPITAL COURSE: Date of Admission:06/14/18 Date of Discharge: 06/17/18 Patient is a 58 year old male with history of HFpEF, stable thoracic aorta aneurysm, obstructive sleep apnea, hypertension, nonobstructive coronary artery disease, nephrolithiasis who presented with complaint of shortness of breath with lower extremity swelling. Patient was evaluated by cardiology and reinstated on home medications Lisinopril, Nifedipine and Coreg. Lasix was reinstated in IV formulation, which led to significant diuresis, and symptom resolution. Patient was discharged to continue his home medications. Atorvastatin was added, with follow up for LFTs. Counselled patient regarding importance of strict medication compliance, and daily weights. Discharged with follow up with primary care provider, and morning show producer. Minutes to complete discharge: 45 Discharge Summary Reason For Visit: CHF; ELEVATED LEVEL TROPONIN Condition: Stable - Instructions Diet, Activity, Other Instructions: You were admitted to hospital with shortness of breath, and lower extremity swelling. You were evaluated by the morning show producer, restarted on your home medications for blood pressure, and given medication to remove the excess fluid from your lungs. Continue taking your home medications as directed. We are starting a new medication: Atorvastatin 10mg. You will need to follow up blood work (liver function tests) within one week after discharge. Your primary care physician will draw the necessary blood work for you. Make sure to check your blood pressure daily, and keep a recorded log of the readings. Bring this with you to your primary care physician appointment. Make sure to weigh yourself daily, to ensure you are not retaining excess fluid. Please see the attached instructions for detailed information. Follow up with your primary care physician (Dr. Guillen) within two-three days after discharge. Follow up with the morning show producer (Dr. Rooney) within one week after discharge. Please return to the nearest Emergency Department if you experience worsening symptoms, fever, chills, shortness of breath, chest pain, palpitations, abdominal pain, nausea, vomiting. Referrals: Sebastian Guillen MD [Primary Care Provider] - Janak Ronoey MD [Staff Physician] - Disposition: HOME - Home Medications Comprehensive Discharge Medication List: Ambulatory Orders Duloxetine HCl [Cymbalta -] 60 mg PO DAILY 06/29/16 Aspirin Coated [Ecotrin -] 81 mg PO DAILY #30 tab 01/19/17 Cholecalciferol (Vitamin D3) [Vitamin D3] 50,000 unit PO WEEKLY 09/16/17 Zolpidem Tartrate [Ambien] 10 mg PO PRN PRN 09/16/17 Carvedilol [Coreg -] 25 mg PO BID #60 tablet 01/11/18 Ferrous Sulfate [Iron] 325 mg PO TID 06/15/18 Folic Acid 1 mg PO DAILY 06/15/18 Mirtazapine [Remeron -] 15 mg PO DAILY 06/15/18 Nifedipine ER [Procardia XL -] 90 mg PO DAILY 06/15/18 Potassium Chloride 20 meq PO DAILY 06/15/18 Vitamin B Complex 1 tab PO DAILY 06/15/18 Atorvastatin Ca [Lipitor] 10 mg PO HS 30 Days #30 tablet 06/16/18 Furosemide [Lasix] 40 mg PO DAILY 30 Days #30 tablet 06/16/18 Lisinopril [Prinivil] 40 mg PO DAILY 30 Days #30 tablet 06/16/18 Tamsulosin HCl [Flomax -] 0.4 mg PO DAILY@0830 cap.er.24h 06/16/18 This patient is new to me today: No Emergency Visit: Yes ED Registration Date: 06/14/18 Care time: The patient presented to the Emergency Department on the above date and was hospitalized for further evaluation of their emergent condition. Critical Care patient: No - Discharge Referral Referred to [facility] Yes Physician Referral: Sebastian Patricia MD ([facility])
== END 2018-06-16 19:45 | disposition home or self-care (01) | DRG 194 ==
LOC: JER 10:09 → JERBED 12:52 → J4W 16:13
PROVIDERS: ADMIT Internal Medicine; ATTEND Internal Medicine
PROC: 5A09557 Assistance with Respiratory Ventilation, Greater than 96 Consecutive Hours, Continuous Positive Airway Pressure (ICD-10-PCS; principal; 2018-06-14)
DX: I13.0 Hypertensive heart and chronic kidney disease with heart failure and stage 1 through stage 4 chronic kidney disease, or unspecified chronic kidney disease (principal); I50.43 Acute on chronic combined systolic (congestive) and diastolic (congestive) heart failure; J96.01 Acute respiratory failure with hypoxia; I24.8 Other forms of acute ischemic heart disease; I42.9 Cardiomyopathy, unspecified; I25.10 Atherosclerotic heart disease of native coronary artery without angina pectoris; J98.11 Atelectasis; I48.91 Unspecified atrial fibrillation; N40.0 Benign prostatic hyperplasia without lower urinary tract symptoms; D12.6 Benign neoplasm of colon, unspecified; N17.9 Acute kidney failure, unspecified; G47.33 Obstructive sleep apnea (adult) (pediatric); N18.3 Chronic kidney disease, stage 3 (moderate); I71.2 Thoracic aortic aneurysm, without rupture; D64.9 Anemia, unspecified; F32.9 Major depressive disorder, single episode, unspecified; R74.8 Abnormal levels of other serum enzymes; I47.2 Ventricular tachycardia; F12.90 Cannabis use, unspecified, uncomplicated; D69.6 Thrombocytopenia, unspecified; N20.0 Calculus of kidney; F17.210 Nicotine dependence, cigarettes, uncomplicated; I08.1 Rheumatic disorders of both mitral and tricuspid valves; Z91.14 Patient's other noncompliance with medication regimen
CPT/HCPCS: 36415; 71045-TC-FY; 80048; 80053; 81003; 81015; 82550; 82607; 82728; 82746; 82803; 83540; 83550; 83605; 83735; 83880; 84100; 84466; 84484; 85025; 85027; 85044; 85610; 87086; 87186; 87389; 87804; 93005; 93010; 93306-TC; 94660; 99285-25; J1644

== ENCOUNTER 2019-01-23 10:14 | Inpatient (IN) | payer OTHER ==
[2019-01-23] MEDS ORDERED: NITROGLYCERIN 25MG/D5W 250ML 25 MG/250 ML ML IVPB ONE ×2 (10:25→16:13)
[2019-01-23] MEDS ORDERED: FUROSEMIDE 40 MG/4 ML INJECTABLE VIAL IVPUSH ONE (10:32)
[2019-01-23] MEDS ORDERED: ETOMIDATE 20 MG/10 ML AMPUL IVPUSH ONE (10:37)
[2019-01-23] MEDS ORDERED: NITROGLYCERIN 25MG/D5W 250ML 25 MG/250 ML ML IVPB SCH (10:45)
[2019-01-23] MEDS ORDERED: BENZOIN/ALOE VERA/STORAX/TOLU 58 ML BOTTLE ONE (10:47)
[2019-01-23 10:49] LABS: BASO % 0.9 % (0-2.0); EOS % 1.4 % (0-4.5); HEMATOCRIT 34.4 % (35.4-49); HEMOGLOBIN 10.6 GM/dL (11.7-16.9); LYMPH % 36.8 % (8-40); MCHC 30.7 g/dl (32.0-35.9); MEAN CELL VOLUME 87.9 fl (80-96); MEAN PLT VOLUME 8.4 fl (7.5-11.1); MONO % 10.9 % (3.8-10.2); PLATELET COUNT 196 K/MM3 (134-434); RBC 3.91 M/mm3 (4.00-5.60); RDW 15.2 % (11.9-15.9); WHITE BLOOD COUNT 7.2 K/mm3 (4.0-10.0)
[2019-01-23 10:58] LABS: INR 1.18 (0.83-1.09)
[2019-01-23] MEDS ORDERED: ENALAPRILAT DIHYDRATE 2.5 MG/2 ML VIAL IVPB ONE ×2 (11:00→11:02)
[2019-01-23] MEDS: NITROGLYCERIN 25MG/D5W 250ML 25 MG/250 ML ML IVPB SCH ×4 (11:00→16:20)
[2019-01-23] MEDS ORDERED: fentaNYL CITRATE 250 MCG/5 ML VIAL ONE (11:02)
--- NOTE | 2019-01-23 11:11 | PDOC ---
History of Present Illness - General Stated Complaint: Shortness of Breath Time Seen by Provider: 01/23/19 10:30 - History of Present Illness Initial Comments: 58 year old male with with history of CHF and significant noncompliance with medications presenting with thee days of respiratory difficulty which culminated in severe respiratory difficulty this morning at which point EMS was called and arrived soon quickly intubating him due to desaturation on pulse ox and general unwell appearance. denies any sick symptoms besides dry cough and feeling of weight in his chest without pain or tightness. EMS brought him in while intubated, sedated, and paralyzed. denies recent fevers, chill, nausea, vomiting, diarrhea, or other symptoms. He has been to this facility for similar symptoms but never intubated before. 01/23/19 11:11 Past History - Past Medical History Allergies/Adverse Reactions: Allergies Allergy/AdvReac Type Severity Reaction Status Date / Time adhesive tape Allergy Verified 06/14/18 10:29 Home Medications: Ambulatory Orders Duloxetine HCl [Cymbalta -] 60 mg PO DAILY 06/29/16 Aspirin Coated [Ecotrin -] 81 mg PO DAILY #30 tab 01/19/17 Cholecalciferol (Vitamin D3) [Vitamin D3] 50,000 unit PO WEEKLY 09/16/17 Zolpidem Tartrate [Ambien] 10 mg PO PRN PRN 09/16/17 Carvedilol [Coreg -] 25 mg PO BID #60 tablet 01/11/18 Ferrous Sulfate [Iron] 325 mg PO TID 06/15/18 Folic Acid 1 mg PO DAILY 06/15/18 Mirtazapine [Remeron -] 15 mg PO DAILY 06/15/18 Nifedipine ER [Procardia XL -] 90 mg PO DAILY 06/15/18 Potassium Chloride 20 meq PO DAILY 06/15/18 Vitamin B Complex 1 tab PO DAILY 06/15/18 Atorvastatin Ca [Lipitor] 10 mg PO HS 30 Days #30 tablet 06/16/18 Furosemide [Lasix] 40 mg PO DAILY 30 Days #30 tablet 06/16/18 Lisinopril [Prinivil] 40 mg PO DAILY 30 Days #30 tablet 06/16/18 Tamsulosin HCl [Flomax -] 0.4 mg PO DAILY@0830 cap.er.24h 06/16/18 Anemia: No Asthma: No Cancer: No Cardiac Disorders: Yes (A.FIB FROM AORTIC ANEURYSM.) CVA: No COPD: No CHF: No Dementia: No Diabetes: No GI Disorders: Yes (COLON ADENOMA, NAUSEA) Disorders: Yes (BPH) HTN: Yes Hypercholesterolemia: No Kidney Stones: Yes Liver Disease: No Seizures: No Thyroid Disease: No - Surgical History Abdominal Surgery: No Appendectomy: No Cardiac Surgery: No Cholecystectomy: No GI Surgery: (KIDNEY SX) Lung Surgery: No Neurologic Surgery: No Orthopedic Surgery: No - Suicide/Smoking/Psychosocial Hx Smoking Status: Yes Smoking History: Never smoked Have you smoked in the past 12 months: No Number of Cigarettes Smoked Daily: 8 'Breaking Loose' booklet given: 01/09/18 Hx Alcohol Use: No Drug/Substance Use Hx: No Substance Use Type: Marijuana Hx Substance Use Treatment: No Review of Systems - Review of Systems Able to Perform ROS?: No (Sedated and paralized) *Physical Exam - Physical Exam General Appearance: Yes: Nourished, Appropriately Dressed, Other (Intubated) HEENT: positive: EOMI, WILBERT, Normal ENT Inspection, Normal Voice. negative: TMs Normal Neck: positive: Trachea midline, Normal Thyroid, Supple. negative: Tender, Rigid Respiratory/Chest: positive: Respiratory Distress (bagged and inbtubated). negative: Chest Tender, Lungs Clear (crackles to the apices), Normal Breath Sounds, Accessory Muscle Use ED Treatment Course - LABORATORY CBC & Chemistry Diagram: 01/26/19 05:25 01/26/19 05:25 - ADDITIONAL ORDERS Additional order review: Laboratory Results 01/23/19 01/23/19 01/23/19 10:48 10:30 10:30 PT with INR Cancelled 14.00 H INR Cancelled 1.18 H PTT (Actin FS) 26.5 Anticoagulation Therapy No Result Required. O2 Delivery Device No Result Required. Oxygen Flow Rate No Result Required. Vent Mode No Result Required. Vent Rate No Result Required. Mechanical Rate No Result Required. Pressure Support Vent No Result Required. 01/23/19 10:30 RBC 3.91 L MCV 87.9 MCHC 30.7 L RDW 15.2 MPV 8.4 Neutrophils % 50.0 Lymphocytes % 36.8 D Monocytes % 10.9 H Eosinophils % 1.4 Basophils % 0.9 Medical Decision Making - Medical Decision Making 58 year old male with PMH of sever CHF and frequent medical noncompliance leading to multiple admissions for acute CHF requiring hospitalization but never intubated prior, presenting intubated to our facility for severe respiratory distress and diaphoresis. Patient's airway was confirmed by direct laryngoscopy on arrival to the ED. His BP was quite elevated with Maps near 200 (260s/180s) so there was emergent need to lower blood pressure. We started nitroglycerin drip at 100mcgs which did not demonstrate much effect so the dose was eventually increased step mauro to 400 mcgs without much change in BP. We administered Lasix 40 IV with good UOP. We also imitated sedative (midazolam eventually transitioned to propofol) and IV push fentanyl which all helped reduce pressure. We considered nitroprusside but discussed the patient with Dr. Russell from who informed us that nitroprusside could become toxic quicker in a patient with renal failure so we deferred. Patient's pressures were well maintained without anti-htn medications for 4-5 hours but nitro was re- initiated with good effect on BP. Head CT and other labs not corroborating any other obvious pathology. Patient admitted to ICU in stable condition. *DC/Admit/Observation/Transfer Diagnosis at time of Disposition: Acute on chronic systolic and diastolic heart failure, NYHA class 1 - Referrals - Patient Instructions - Post Discharge Activity
[2019-01-23] MEDS ORDERED: FENTANYL INJECTION 500 MCG in DEXTROSE 5%-WATER - 90 ML IVPB SCH (11:15)
[2019-01-23 11:16] LABS: ARTERIAL BLD GAS O2 SATURATION 96.1 % (95-98); ARTERIAL BLOOD GAS BASE EXCESS -7.2 meq/l (-2-2); ARTERIAL BLOOD GAS PO2 124 mmHg (80-105); CARBOXYHEMOGLOBIN 2.5 % (0-2)
[2019-01-23 11:18] LABS: ALBUMIN 3.4 g/dl (3.4-5.0); BILIRUBIN,TOTAL 0.8 mg/dL (0.2-1); BLOOD UREA NITROGEN 25.9 mg/dL (7-18); CALCIUM 8.6 mg/dL (8.5-10.1); CREATININE 2.4 mg/dL (0.55-1.3); POTASSIUM 3.8 mmol/L (3.5-5.1); TOT PROT 7.6 g/dl (6.4-8.2)
[2019-01-23 11:21] LABS: ALLENS TEST POSITIVE
[2019-01-23 11:22] LABS: ARTERIAL BLOOD GAS PCO2 81.3 mmHg (35-45); ARTERIAL BLOOD GAS pH 7.08 (7.35-7.45)
[2019-01-23] MEDS ORDERED: methylPREDNISolone NA SUCC 125 MG/2 ML VIAL IVPB ONE (11:30)
[2019-01-23] MEDS ORDERED: NITROPRUSSIDE SODIUM 50,000 MCG in DEXTROSE 5%-WATER - 248 ML IVPB SCH (11:30)
[2019-01-23 11:34] LABS: N-TERMINAL BNP 5684.8 pg/ml (5-125)
--- NOTE | 2019-01-23 11:40 | PDOC ---
Attending Attestation - Resident Resident Name: LauraHiralyashnelly - ED Attending Attestation I have performed the following: I have examined & evaluated the patient, The case was reviewed & discussed with the resident, I agree w/resident's findings & plan, Exceptions are as noted - HPI HPI: 01/23/19 11:30 58 M with h/o CHF EF 45% 12/2017, sleep apnea, HTN, smoker, presenting to ED in respiratory failure. EMS reports that they were called for respiratory distress. Upon arrival, pt was found to be in respiratory failure, with no audible lung sounds. Pt was intubated in the field. In ED, pt was found to be hypertensive to 240/150, O2 sat 100%, HR 130s ETT placement was confirmed with direct visualization. - Physicial Exam PE: 01/23/19 12:57 GENERAL: Intubated, sedated HEAD: No signs of trauma EYES: PERRLA, EOMI, sclera anicteric, conjunctiva clear ENT: Auricles normal inspection, hearing grossly normal, nares patent, oropharynx clear without exudates. Moist mucosa NECK: Nontender, no stepoffs, Normal ROM, supple, no lymphadenopathy, JVD, or masses LUNGS: Diffuse rales HEART: Regular rate and rhythm, normal S1 and S2, no murmurs, rubs or gallops ABDOMEN: Soft, nontender, normoactive bowel sounds. No guarding, no rebound. No masses EXTREMITIES: Normal range of motion, no edema. No clubbing or cyanosis. No cords, erythema, or tenderness NEUROLOGICAL: Paralyzed SKIN: Warm, Dry, normal turgor, no rashes or lesions noted. - Critical Care Time Total Critical Care Time: 180 Critical Care Statement: The care of this patient involved high complexity decision making to prevent further life threatening deterioration of the patient 's condition and/or to evaluate & treat vital organ system(s) failure or risk of failure. - Medical Decision Making 01/23/19 11:40 58 M with acute respiratory failure. Lung exam with diffuse rales. Pt extremely hypertensive. Suspect APE 2/2 decompensated heart failure. 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 Pt to be admitted to ICU
[2019-01-23] MEDS ORDERED: NITROPRUSSIDE SODIUM 25 MG/1 ML ML IVPB ONE (11:42)
[2019-01-23] MEDS ORDERED: methylPREDNISolone NA SUCC 125 MG/2 ML VIAL ONE (11:43)
--- NOTE | 2019-01-23 12:17 | HP ---
Admitting History and Physical - Primary Care Physician PCP: Sebastian Guillen - Admission Chief Complaint: respiratory distress History of Present Illness: Patient is a 58 year old male with a significant past medical history of diastolic CHF, aortic aneurysm (w/mild dilation), FABRICIO, HTN, nonobstructive CAD ( multiple caths done at other tertiary care centers), past hx lithotripsy for left nephrolithiasis, active smoker. He presents to [facility] ED for acute respiratory failure. Patient was intubated in the field after he experienced three days of respiratory difficulty. EMS brought him in while intubated, sedated after he was in acute respiratory failure with no audible lung sounds. On arrival he was also noted to have hypertensive emergency 238/185, tachycardic 130s and hypothermic (96.1f). His ABGs show acute respiratory hypercapneic failure. He was place on a Nitroglycerine drip for hypertensive emergency and given vasotec IV with improvement of his BP. Lasix 40mg x 1 push given, and he was started on propofol. imaging: head ct 01/23/19: negative for acute process ekg 01/23/19 - sinus tachycardia, left atrial enlargement chest xray 01/23/19 - large heart, congestive changes, possible retricardio inf ED course notable for: hypertensive emergency:238/185, hr 139, 96.1F + marijuana screen, otherwise negaive tox lactic acid 5.3 creatinine 2.4/bun 25.9 bnp 5680 trop + 0.25, trending q 6 hrs presents intubated in the field Limitations to Obtaining History: Clinical Condition - Past Medical History Cardiovascular: Yes: CAD (non-obstx), CHF (Chronic diastolic CHF), HTN, Other ( NSVT) Pulmonary: Yes: Sleep Apnea Renal/: Yes: Renal Inusuff, Renal Calculi Heme/Onc: Yes: Anemia Psych: Yes: Depression - Smoking History Smoking history: Unknown if ever smoked Have you smoked in the past 12 months: No Aproximately how many cigarettes per day: 8 - Alcohol/Substance Use Hx Alcohol Use: No History of Substance Use: reports: Marijuana - Social History ADL: Independent Occupation: currently unemployed Home Medications - Allergies Allergies/Adverse Reactions: Allergies Allergy/AdvReac Type Severity Reaction Status Date / Time adhesive tape Allergy Verified 06/14/18 10:29 - Home Medications Home Medications: Ambulatory Orders Duloxetine HCl [Cymbalta -] 60 mg PO DAILY 06/29/16 Aspirin Coated [Ecotrin -] 81 mg PO DAILY #30 tab 01/19/17 Cholecalciferol (Vitamin D3) [Vitamin D3] 50,000 unit PO WEEKLY 09/16/17 Zolpidem Tartrate [Ambien] 10 mg PO PRN PRN 09/16/17 Carvedilol [Coreg -] 25 mg PO BID #60 tablet 01/11/18 Ferrous Sulfate [Iron] 325 mg PO TID 06/15/18 Folic Acid 1 mg PO DAILY 06/15/18 Mirtazapine [Remeron -] 15 mg PO DAILY 06/15/18 Nifedipine ER [Procardia XL -] 90 mg PO DAILY 06/15/18 Potassium Chloride 20 meq PO DAILY 06/15/18 Vitamin B Complex 1 tab PO DAILY 06/15/18 Atorvastatin Ca [Lipitor] 10 mg PO HS 30 Days #30 tablet 06/16/18 Furosemide [Lasix] 40 mg PO DAILY 30 Days #30 tablet 06/16/18 Lisinopril [Prinivil] 40 mg PO DAILY 30 Days #30 tablet 06/16/18 Tamsulosin HCl [Flomax -] 0.4 mg PO DAILY@0830 cap.er.24h 06/16/18 Family Disease History - Family Disease History Family History: Unable to Obtain (pt intubated, family not present) Physical Examination Vital Signs: Vital Signs Temperature 96.1 F L 01/23/19 11:47 Pulse Rate 139 H 01/23/19 11:47 Respiratory Rate Blood Pressure 238/185 H 01/23/19 11:47 O2 Sat by Pulse Oximetry (%) 100 01/23/19 11:47 Labs: CBC, BMP 01/23/19 10:30 01/23/19 10:30 Problem List - Problems (1) Acute respiratory failure with hypoxia and hypercapnia Assessment/Plan: intubated in the field on propofol Care per ICU team maintain oxygen saturations above 90% pulmonary following Code(s): J96.01 - ACUTE RESPIRATORY FAILURE WITH HYPOXIA; J96.02 - ACUTE RESPIRATORY FAILURE WITH HYPERCAPNIA (2) Acute pulmonary edema Assessment/Plan: diuresed 1 liter in the Ed on IV lasix daily weights, monitor intake and output strict intake and output Code(s): J81.0 - ACUTE PULMONARY EDEMA (3) Acute on chronic renal failure Assessment/Plan: monitor with labs if uptrending, consult nephrology renal ultrasound in a.m. if renal function remains elevated. Code(s): N17.9 - ACUTE KIDNEY FAILURE, UNSPECIFIED; N18.9 - CHRONIC KIDNEY DISEASE, UNSPECIFIED (4) [id number] renal failure Assessment/Plan: monitor with daily labs Code(s): N17.9 - ACUTE KIDNEY FAILURE, UNSPECIFIED; N18.9 - CHRONIC KIDNEY DISEASE, UNSPECIFIED (5) Lactic acidosis Assessment/Plan: elevated on admission, resolved with repeat labs Code(s): E87.2 - ACIDOSIS (6) Hypertensive emergency Assessment/Plan: admitted with hypertensive urgency. now on Nitro drip. BP monitoring q 4 in the ICU titrate to goal of 140-150 systolic. cardiology consulted Code(s): I16.1 - HYPERTENSIVE EMERGENCY (7) Elevated liver enzymes Assessment/Plan: monitor ast/alt, likely elevated in the setting of volume overload Code(s): R74.8 - ABNORMAL LEVELS OF OTHER SERUM ENZYMES (8) Prophylactic measure Assessment/Plan: fen no ivf 2/2 to pulmonary edema monitor electrolytes npo heparin tid Code(s): Z29.9 - ENCOUNTER FOR PROPHYLACTIC MEASURES, UNSPECIFIED Visit type - Emergency Visit Emergency Visit: Yes ED Registration Date: 01/23/19 Care time: The patient presented to the Emergency Department on the above date and was hospitalized for further evaluation of their emergent condition. - New Patient This patient is new to me today: Yes Date on this admission: 01/23/19 - Critical Care Critical Care patient: Yes Total Critical Care Time (in minutes): 60 Critical Care Statement: The care of this patient involved high complexity decision making to prevent further life threatening deterioration of the patient 's condition and/or to evaluate & treat vital organ system(s) failure or risk of failure.
[2019-01-23 12:27] LABS: ACTIVATED PTT 24.3 SECONDS (25.2-36.5)
[2019-01-23] MEDS: PROPOFOL 1,000,000 MCG/100 ML VIAL IVPB SCH ×5 (12:28→19:00)
[2019-01-23] MEDS: ALBUTEROL SO4 2.5/IPRATROPIUM 0.5 INH SOL 3 ML VIAL.NEB. NEB SCH ×4 (12:37→17:22)
--- NOTE | 2019-01-23 12:44 | CONSULT ---
Consultation: CONSULT SERVICE: ICU Resident HISTORY OF PRESENT ILLNESS: 58yo M with h/o of HFrEF, stable aortic aneurysm, FABRICIO, HTN, CAD s/p multiple caths, smoker who presents today for acute respiratory failure. According to family pt was noncompliant with his Lasix and antihypertensive medications because they would make him nauseous. Pt was noted to have 3 days of increased work of breathing. Today an ambulance was called because he was noted to be in severe distress with minimal responsiveness. Pt was intubated in the field and sedated at this time. Upon arrival to the ED ETT was exchanged and pt was noted to be hypertensive to 238/185, tachycardic, and hypothermic. ABG confirmed respiratory acidosis 2/2 to hypercapnea and pt was placed on a nitroglycerin gtt for hypertensive crisis. REVIEW OF SYSTEMS: As per HPI PHYSICAL EXAMINATION Vital Signs 01/23/19 01/23/19 01/23/19 10:15 10:35 11:47 Temperature 96.1 F L Pulse Rate 138 H 123 H 139 H Respiratory 14 Rate Blood Pressure 238/185 H O2 Sat by Pulse 100 96 100 Oximetry (%) 01/23/19 12:36 Temperature Pulse Rate Respiratory Rate Blood Pressure O2 Sat by Pulse 96 Oximetry (%) GENERAL: Intubated and sedated. Calm HEENT: NC/AT, TYLER with pinpoint pupils, sclera anicteric, MMM NECK: No JVD appreciated LUNGS: Diffuse crackles throughout lung arboleda, no overt wheezing, AC mode of vent TV 500/PEEP 5/FiO2 60%/RR 16 HEART: RRR, S1, S2 without murmur ABDOMEN: Soft, NT/ND, hypoactive bowel sounds, no guarding, no suprapubic fullness, no edema noted EXTREMITIES: 2+ DP pulses, warm, well-perfused, no edema. SKIN: Warm, dry, normal turgor, no rashes or lesions noted Laboratory Results - last 24 hr 01/23/19 01/23/19 01/23/19 10:00 10:30 10:30 WBC 7.2 RBC 3.91 L Hgb 10.6 L Hct 34.4 L MCV 87.9 MCH 27.0 MCHC 30.7 L RDW 15.2 Plt Count 196 D MPV 8.4 Absolute Neuts (auto) 3.6 Neutrophils % 50.0 Lymphocytes % 36.8 D Monocytes % 10.9 H Eosinophils % 1.4 Basophils % 0.9 Nucleated RBC % 0 PT with INR 14.00 H INR 1.18 H PTT (Actin FS) 24.3 L Anticoagulation Therapy Puncture Site ABG pH ABG pCO2 at Pt Temp ABG pO2 at Pt Temp ABG HCO3 ABG O2 Sat (Measured) ABG O2 Content ABG Base Excess Jasvir Test Carboxyhemoglobin Methemoglobin O2 Delivery Device Oxygen Flow Rate Vent Mode Vent Rate Mechanical Rate Pressure Support Vent Sodium Potassium Chloride Carbon Dioxide Anion Gap BUN Creatinine Est GFR (CKD-EPI)AfAm Est GFR (CKD-EPI)NonAf Random Glucose Lactic Acid 5.3 H* Calcium Total Bilirubin AST ALT Alkaline Phosphatase B-Natriuretic Peptide Total Protein Albumin Blood Type Antibody Screen 01/23/19 01/23/19 01/23/19 10:30 10:30 10:42 WBC RBC Hgb Hct MCV MCH MCHC RDW Plt Count MPV Absolute Neuts (auto) Neutrophils % Lymphocytes % Monocytes % Eosinophils % Basophils % Nucleated RBC % PT with INR Cancelled INR Cancelled PTT (Actin FS) Anticoagulation Therapy Puncture Site ABG pH ABG pCO2 at Pt Temp ABG pO2 at Pt Temp ABG HCO3 ABG O2 Sat (Measured) ABG O2 Content ABG Base Excess Jasvir Test Carboxyhemoglobin Methemoglobin O2 Delivery Device Oxygen Flow Rate Vent Mode Vent Rate Mechanical Rate Pressure Support Vent Sodium 142 Potassium 3.8 Chloride 109 H Carbon Dioxide 24 Anion Gap 10 BUN 25.9 H Creatinine 2.4 H Est GFR (CKD-EPI)AfAm 32.98 Est GFR (CKD-EPI)NonAf 28.46 Random Glucose 207 H Lactic Acid Calcium 8.6 Total Bilirubin 0.8 AST 175 H ALT 109 H Alkaline Phosphatase 120 H B-Natriuretic Peptide 5684.8 H Total Protein 7.6 Albumin 3.4 Blood Type A POSITIVE Antibody Screen Negative 01/23/19 10:48 WBC RBC Hgb Hct MCV MCH MCHC RDW Plt Count MPV Absolute Neuts (auto) Neutrophils % Lymphocytes % Monocytes % Eosinophils % Basophils % Nucleated RBC % PT with INR INR PTT (Actin FS) Anticoagulation Therapy No Result Required. Puncture Site Right radial ABG pH 7.08 L* ABG pCO2 at Pt Temp 81.3 H* ABG pO2 at Pt Temp 124 H ABG HCO3 23.2 ABG O2 Sat (Measured) 96.1 ABG O2 Content 12.3 L ABG Base Excess -7.2 L Jasvir Test Positive Carboxyhemoglobin 2.5 H Methemoglobin 0.0 O2 Delivery Device No Result Required. Oxygen Flow Rate Yes Vent Mode No Result Required. Vent Rate No Result Required. Mechanical Rate No Result Required. Pressure Support Vent No Result Required. Sodium Potassium Chloride Carbon Dioxide Anion Gap BUN Creatinine Est GFR (CKD-EPI)AfAm Est GFR (CKD-EPI)NonAf Random Glucose Lactic Acid Calcium Total Bilirubin AST ALT Alkaline Phosphatase B-Natriuretic Peptide Total Protein Albumin Blood Type Antibody Screen Active Medications Generic Name Dose Route Start Last Admin Trade Name Freq PRN Reason Stop Dose Admin Propofol 1,000,000 mcg in 100 mls @ 13.2 mls/hr 01/23/19 11:30 01/23/19 12:30 Diprivan - IVPB Not Given TITR HONEY Protocol 10 MCG/KG/MIN Propofol 1,000,000 mcg in 100 mls @ 5.987 mls/hr 01/23/19 12:30 01/23/19 12: 28 Diprivan - IVPB 10 mcg/kg/min TITR HONEY 5.987 mls/hr Administration Protocol 10 MCG/KG/MIN ASSESSMENT/PLAN: Acute hypercapenic hypoxic respiratory failure Acute Pulmonary Edema HFrEF, acute Congestive hepatopathy Acute on chronic renal failure Lactic Acidosis Hypertensive Urgency Neuro: Pt awake and combatitive Increase sedation for comfort and vent synchrony Respiratory: Likely respiratory failure 2/2 to pulmonary edema Continue AC mode of vent: optimize for IBW Maintain SpO2 >90% Cardiac: Acute overload 2/2 to noncompliance Maintain diuresis with Lasix 40mg BID IVP Maintain lanier for accurate I&O's HTN urgency mixed picture: combative while on ventilator and acute respiratory decline --Can maintain nitro gtt for now and titrate for goal BP ~140/80 --Would avoid nitroprusside in this case 2/2 to renal failure --If needed can place on Cardene gtt for further control and maximize one modality Repeat echocardiogram for any interval change in LV EF --Previous echocardiogram (05/2018 with mildly reduced EF) Continue home antihypertensive medications when able: --Coreg 25mg BID PO --Lisinopril 40mg PO qdaily --Procadia XL 90mg qDaily Renal: Acute renal dysfunction likely 2/2 to HTN and pulmonary edema vs. worsening CRS --Maintain lanier for UO --If urine output declines or doesn't respond possible renal US --Utox ordered --FeUrea to be calculated based on ordered studies Endo: No issues ID: No issues at current moment GI: INcreased LFTs 2/2 to congestion Monitor LFT trend Avoid hepatotoxic agents until normalized FEN: Fluids - Avoid due to overload/pulm edema electrolytes - None currently Nutrition - NPO while intubated acutely PPX: DVT - Heparin SQ due to renal dysfunction GI - Not indicated currently Dispo: ICU admit Case discussed with Dr. Eris Russell, DO - IM PGY-3 Visit type - Emergency Visit Emergency Visit: Yes ED Registration Date: 01/23/19 Care time: The patient presented to the Emergency Department on the above date and was hospitalized for further evaluation of their emergent condition. - New Patient This patient is new to me today: Yes Date on this admission: 01/23/19 - Critical Care Critical Care patient: Yes Total Critical Care Time (in minutes): 40 Critical Care Statement: The care of this patient involved high complexity decision making to prevent further life threatening deterioration of the patient 's condition and/or to evaluate & treat vital organ system(s) failure or risk of failure. ATTENDING PHYSICIAN STATEMENT I saw and evaluated the patient. I reviewed the resident's note and discussed the case with the resident. I agree with the resident's findings and plan as documented. SUBJECTIVE: OBJECTIVE: ASSESSMENT AND PLAN:
[2019-01-23 13:20] LABS: EPI CELLS 13.7 /HPF (0-5/HPF); HYALINE CASTS 29 /lpf (0-8); URINE APPEARANCE CLEAR; URINE BACTERIA 11.3 /hpf (NEGATIVE); URINE BILIRUBIN NEGATIVE (NEGATIVE); URINE COLOR YELLOW; URINE GLUCOSE (UA) 1+ (NEGATIVE); URINE KETONE NEGATIVE (NEGATIVE); URINE LEUK ESTERASE NEGATIVE (NEGATIVE); URINE NITRITE NEGATIVE (NEGATIVE); URINE PROTEIN 2+ (NEGATIVE); URINE RBC 1 /hpf (0-4); URINE WBC 4 /hpf (0-5)
[2019-01-23 13:23] LABS: ARTERIAL BLD GAS O2 SATURATION 99.4 % (95-98); ARTERIAL BLOOD GAS BASE EXCESS -2.6 meq/l (-2-2); ARTERIAL BLOOD GAS PCO2 50.2 mmHg (35-45); ARTERIAL BLOOD GAS PO2 191 mmHg (80-105); ARTERIAL BLOOD GAS pH 7.29 (7.35-7.45); CARBOXYHEMOGLOBIN 2.6 % (0-2)
[2019-01-23 13:41] LABS: COCAINE, UR NEGATIVE ng/ml (CUTOFF=300); METHADONE, UR NEGATIVE ng/ml (CUTOFF=300); OPIATES, URI NEGATIVE ng/ml (CUTOFF=300); PHENCYCLIDINE,URINE NEGATIVE ng/ml (CUTOFF=25); URINE AMPHETAMINES NEGATIVE ng/ml (CUTOFF=500); URINE BARBITURATES NEGATIVE ng/ml (CUTOFF=200); URINE BENZODIAZEPINES NEGATIVE ng/ml (CUTOFF=200)
[2019-01-23 13:54] LABS: ALLENS TEST POSITIVE
--- NOTE | 2019-01-23 14:35 | EKG ---
Test Reason : Blood Pressure : / mmHG Vent. Rate : 132 BPM Atrial Rate : 132 BPM P-R Int : 172 ms QRS Dur : 102 ms QT Int : 332 ms P-R-T Axes : 045 041 123 degrees QTc Int : 491 ms SINUS TACHYCARDIA WITH FREQUENT and consecutive PREMATURE VENTRICULAR COMPLEXES IN A PATTERN OF BIGEMINY LEFT ATRIAL ENLARGEMENT LEFT VENTRICULAR HYPERTROPHY WITH REPOLARIZATION ABNORMALITY ABNORMAL ECG Confirmed by MD MARK, KATELYN ([id number]) on 01/23/2019 2:34:47 PM Referred By: Confirmed By:KATELYN FLORES MD
--- NOTE | 2019-01-23 14:54 | PN ---
Teaching Attending Note Name of Resident: Jose Russell ATTENDING PHYSICIAN STATEMENT I saw and evaluated the patient. I reviewed the resident's note and discussed the case with the resident. I agree with the resident's findings and plan as documented. SUBJECTIVE: Pt seen and examined in the ER. Briefly, 58yo male with h/o HTN, LV systolic dysfunction, FABRICIO, smoker who was admitted with respiratory failure, intubated in the field. Noted to be hypertensive to 240/150, CXR showing pulmonary vascular congestion. Pt unable to provide further history at this time. Currently intubated, sedated on volume assist control with 60% FiO2. OBJECTIVE: Vital Signs Period Temp Pulse Resp BP Sys/Rosado Pulse Ox Last 24 Hr 96.1 F 77-139 14-15 138-257/100-185 96-100 Intake & Output 01/20/19 01/21/19 01/22/19 01/23/19 23:59 23:59 23:59 23:59 Output Total 1300 Balance -1300 Weight 99.79 kg Gen: intubated, sedated Heart: RRR Lung: decreased breath sounds at the bases Abd: soft, nontender Ext: no edema CBC, BMP 01/23/19 10:30 01/23/19 10:30 CXR: pulmonary vascular congestion Active Medications Propofol (Diprivan -) 1,000,000 mcg in 100 mls @ 13.2 mls/hr IVPB TITR HONEY; Protocol Last Admin: 01/23/19 12:30 Dose: Not Given Propofol (Diprivan -) 1,000,000 mcg in 100 mls @ 5.987 mls/hr IVPB TITR HONEY; Protocol Last Admin: 01/23/19 13:59 Dose: 30 mcg/kg/min, 17.962 mls/hr Nitroglycerin/Dextrose (Nitroglycerin 25mg/D5w 250ml) 25 mg in 250 mls @ 6 mls/ hr IVPB TITR HONEY ASSESSMENT AND PLAN: Acute Hypoxic and Hypercapneic Respiratory Failure Acute on Chronic Systolic Heart Failure Acute Pulmonary Edema Hypertensive Urgency Lactic Acidosis Elevated LFTs FABRICIO Smoker - IV lasix - monitor urine output, creatinine - titrate down nitro gtt - trend lactate, LFTs - cycle cardiac enzymes - echocardiogram - BP control - taper Fio2 to keep SpO2 >90% - hold sedation in AM to assess mental status - spontaneous breathing trials as tolerated when mental status improved - DVT/GI prophylaxis - ICU monitoring critical care time spent in reviewing chart, evaluating patient and formulating plan 35 min
[2019-01-23] MEDS ORDERED: PROPOFOL 1,000,000 MCG/100 ML VIAL ONE (17:17)
[2019-01-23] MEDS ORDERED: MIDAZOLAM HCL 2 MG/2 ML SINGLE DOSE VIAL IVPUSH ONE (19:16)
[2019-01-23] MEDS ORDERED: MIDAZOLAM 100 MG in SODIUM CHLORIDE 100 ML IVPB SCH (19:30)
[2019-01-23] MEDS ORDERED: PNEUMOC 13-VAL CONJ-DIP CRM/PF 0.5 ML DISP.SYRIN IM ONE (20:34)
[2019-01-23] MEDS ORDERED: PNEUMOCOCCAL 23 VACCINE 0.5 ML VIAL IM ONE (21:00)
[2019-01-23] MEDS: CHLORHEXIDINE GLUCONATE 4% CLEANSER FOR DECOLONIZATION TP SCH (21:28)
[2019-01-23] MEDS: HEPARIN NA (PORCINE) 5,000 UNITS/ML 1ML VIAL SQ SCH (21:28)
[2019-01-23] MEDS: MUPIROCIN 2% TOPICAL OINTMENT FOR DECOLONIZATION NS SCH (21:32)
[2019-01-23] MEDS: NICARDIPINE 25 MG in DEXTROSE 5%-WATER - 240 ML IVPB SCH (21:32)
[2019-01-24] MEDS ORDERED: MIDAZOLAM IN 0.9 % SOD.CHLORID 1 MG/1 ML PLAST..BAG ONE (05:07)
[2019-01-24] MEDS: CARVEDILOL 25 MG TABLET (FP) PO SCH ×2 (05:20→09:38)
[2019-01-24] MEDS: HEPARIN NA (PORCINE) 5,000 UNITS/ML 1ML VIAL SQ SCH ×3 (06:03→22:15)
[2019-01-24] MEDS: FUROSEMIDE 40 MG/4 ML INJECTABLE VIAL IVPUSH SCH ×2 (06:03→13:42)
[2019-01-24 06:37] LABS: BASO % 0.2 % (0-2.0); HEMATOCRIT 28.8 % (35.4-49); HEMOGLOBIN 9.2 GM/dL (11.7-16.9); LYMPH % 8.1 % (8-40); MEAN CELL VOLUME 84.5 fl (80-96); MEAN PLT VOLUME 8.2 fl (7.5-11.1); MONO % 5.2 % (3.8-10.2); NEUT % 86.5 % (42.8-82.8); PLATELET COUNT 151 K/MM3 (134-434); RDW 14.8 % (11.9-15.9); WHITE BLOOD COUNT 7.2 K/mm3 (4.0-10.0)
[2019-01-24] MEDS: NICARDIPINE 25 MG in DEXTROSE 5%-WATER - 240 ML IVPB SCH ×4 (07:00→22:13)
[2019-01-24 07:16] LABS: ALBUMIN 3.1 g/dl (3.4-5.0); BILIRUBIN,TOTAL 0.6 mg/dL (0.2-1); BLOOD UREA NITROGEN 32.5 mg/dL (7-18); CALCIUM 8.3 mg/dL (8.5-10.1); POTASSIUM 3.7 mmol/L (3.5-5.1); TOT PROT 6.9 g/dl (6.4-8.2)
[2019-01-24 08:58] LABS: ARTERIAL BLD GAS O2 SATURATION 99.2 % (95-98); ARTERIAL BLOOD GAS BASE EXCESS 0.1 meq/l (-2-2); ARTERIAL BLOOD GAS PCO2 43.1 mmHg (35-45); ARTERIAL BLOOD GAS PO2 155 mmHg (80-105); ARTERIAL BLOOD GAS pH 7.38 (7.35-7.45)
[2019-01-24 09:24] LABS: ALLENS TEST POSITIVE
[2019-01-24] MEDS: LISINOPRIL 20 MG TABLET (FP) PO SCH (09:38)
[2019-01-24] MEDS: ASPIRIN COATED 81 MG TABLET.EC PO SCH (09:38)
[2019-01-24] MEDS ORDERED: NIFEdipine E.R. 90 MG TABLET (FP) PO SCH (10:00)
--- NOTE | 2019-01-24 10:59 | PN ---
Physical Exam: UPDATE 1: Pt failed CPAP trials due to somnolence 2/2 to decreased sedation clearance with renal function diminished. Pt was moving all four extremities, however would not listen to commands and was combativie. While on CPAP mode of vent pt still had TV of 500, however was tachypneic at [address]. Will [address] short- acting sedation and attempt tomorrow to mitigate diaphragm fatigue. SUBJECTIVE: Pt remains intubated and sedated. Vent settings unchanged. No acute events overnight. OBJECTIVE: Vital Signs Period Temp Pulse Resp BP Sys/Rosado Pulse Ox Last 24 Hr 96.1 F-98.2 F 77-139 14-31 116-238/80-185 96-100 GENERAL: Intubated and sedated. Calm HEENT: NC/AT, TYLER with pinpoint pupils, sclera anicteric, MMM NECK: No JVD appreciated LUNGS: Improved breath sounds CTA b/l, no rales. AC mode of vent HEART: RRR, S1, S2 without murmur ABDOMEN: Soft, NT/ND, hypoactive bowel sounds, no guarding, no suprapubic fullness, no edema noted EXTREMITIES: 2+ DP pulses, warm, well-perfused, no edema. SKIN: Warm, dry, normal turgor, no rashes or lesions noted Laboratory Results 01/23/19 01/23/19 01/23/19 10:00 10:30 10:30 WBC RBC Hgb Hct MCV MCH MCHC RDW Plt Count MPV Absolute Neuts (auto) Neutrophils % Lymphocytes % Monocytes % Eosinophils % Basophils % Nucleated RBC % PTT (Actin FS) 24.3 L Anticoagulation Therapy Puncture Site ABG pH ABG pCO2 at Pt Temp ABG pO2 at Pt Temp ABG HCO3 ABG O2 Sat (Measured) ABG O2 Content ABG Base Excess Jasvir Test Carboxyhemoglobin Methemoglobin O2 Delivery Device Oxygen Flow Rate Vent Mode Vent Rate Mechanical Rate PEEP Pressure Support Vent Sodium 142 Potassium 3.8 Chloride 109 H Carbon Dioxide 24 Anion Gap 10 BUN 25.9 H Creatinine 2.4 H Est GFR (CKD-EPI)AfAm 32.98 Est GFR (CKD-EPI)NonAf 28.46 POC Glucometer Random Glucose 207 H Lactic Acid 5.3 H* Calcium 8.6 Magnesium Total Bilirubin 0.8 AST 175 H ALT 109 H Alkaline Phosphatase 120 H Creatine Kinase 108 Troponin I 0.25 H B-Natriuretic Peptide 5684.8 H Total Protein 7.6 Albumin 3.4 Triglycerides Cholesterol Total LDL Cholesterol HDL Cholesterol Urine Color Urine Appearance Urine pH Ur Specific [place] Urine Protein Urine Glucose (UA) Urine Ketones Urine Blood Urine Nitrite Urine Bilirubin Urine Urobilinogen Ur Leukocyte Esterase Urine WBC (Auto) Urine RBC (Auto) Urine Casts (Auto) U Pathogenic Cast Auto U Epithel Cells (Auto) U Sm Round Cell (Auto) Urine Bacteria (Auto) Ur Random Creatinine Ur Random Sodium Ur Random Potassium Ur Random Chloride Ur Random Urea Nitrogn Opiates Screen Methadone Screen Barbiturate Screen Phencyclidine Screen Ur Amphetamines Screen MDMA (Ecstasy) Screen Benzodiazepines Screen Cocaine Screen U Marijuana (THC) Screen Blood Type Antibody Screen 01/23/19 01/23/19 01/23/19 10:42 10:48 12:47 WBC RBC Hgb Hct MCV MCH MCHC RDW Plt Count MPV Absolute Neuts (auto) Neutrophils % Lymphocytes % Monocytes % Eosinophils % Basophils % Nucleated RBC % PTT (Actin FS) Anticoagulation Therapy No Result Required. Puncture Site Right radial ABG pH 7.08 L* ABG pCO2 at Pt Temp 81.3 H* ABG pO2 at Pt Temp 124 H ABG HCO3 23.2 ABG O2 Sat (Measured) 96.1 ABG O2 Content 12.3 L ABG Base Excess -7.2 L Jasvir Test Positive Carboxyhemoglobin 2.5 H Methemoglobin 0.0 O2 Delivery Device No Result Required. Oxygen Flow Rate Yes Vent Mode No Result Required. Vent Rate No Result Required. Mechanical Rate No Result Required. PEEP Pressure Support Vent No Result Required. Sodium Potassium Chloride Carbon Dioxide Anion Gap BUN Creatinine Est GFR (CKD-EPI)AfAm Est GFR (CKD-EPI)NonAf POC Glucometer Random Glucose Lactic Acid Calcium Magnesium Total Bilirubin AST ALT Alkaline Phosphatase Creatine Kinase Troponin I B-Natriuretic Peptide Total Protein Albumin Triglycerides Cholesterol Total LDL Cholesterol HDL Cholesterol Urine Color Yellow Urine Appearance Clear Urine pH 7.0 Ur Specific Oakley 1.012 Urine Protein 2+ H Urine Glucose (UA) 1+ H Urine Ketones Negative Urine Blood Trace Urine Nitrite Negative Urine Bilirubin Negative Urine Urobilinogen 1.0 Ur Leukocyte Esterase Negative Urine WBC (Auto) 4 Urine RBC (Auto) 1 Urine Casts (Auto) 29 U Pathogenic Cast Auto None seen U Epithel Cells (Auto) 13.7 U Sm Round Cell (Auto) None seen Urine Bacteria (Auto) 11.3 Ur Random Creatinine Ur Random Sodium Ur Random Potassium Ur Random Chloride Ur Random Urea Nitrogn Opiates Screen Methadone Screen Barbiturate Screen Phencyclidine Screen Ur Amphetamines Screen MDMA (Ecstasy) Screen Benzodiazepines Screen Cocaine Screen U Marijuana (THC) Screen Blood Type A POSITIVE Antibody Screen Negative 01/23/19 01/23/19 01/23/19 12:54 12:54 12:54 WBC RBC Hgb Hct MCV MCH MCHC RDW Plt Count MPV Absolute Neuts (auto) Neutrophils % Lymphocytes % Monocytes % Eosinophils % Basophils % Nucleated RBC % PTT (Actin FS) Anticoagulation Therapy Puncture Site ABG pH ABG pCO2 at Pt Temp ABG pO2 at Pt Temp ABG HCO3 ABG O2 Sat (Measured) ABG O2 Content ABG Base Excess Jasvir Test Carboxyhemoglobin Methemoglobin O2 Delivery Device Oxygen Flow Rate Vent Mode Vent Rate Mechanical Rate PEEP Pressure Support Vent Sodium Potassium Chloride Carbon Dioxide Anion Gap BUN Creatinine Est GFR (CKD-EPI)AfAm Est GFR (CKD-EPI)NonAf POC Glucometer Random Glucose Lactic Acid Calcium Magnesium Total Bilirubin AST ALT Alkaline Phosphatase Creatine Kinase Troponin I B-Natriuretic Peptide Total Protein Albumin Triglycerides Cholesterol Total LDL Cholesterol HDL Cholesterol Urine Color Urine Appearance Urine pH Ur Specific [place] Urine Protein Urine Glucose (UA) Urine Ketones Urine Blood Urine Nitrite Urine Bilirubin Urine Urobilinogen Ur Leukocyte Esterase Urine WBC (Auto) Urine RBC (Auto) Urine Casts (Auto) U Pathogenic Cast Auto U Epithel Cells (Auto) U Sm Round Cell (Auto) Urine Bacteria (Auto) Ur Random Creatinine 23.0 L Ur Random Sodium 135 Ur Random Potassium 13.0 L Ur Random Chloride 132 Ur Random Urea Nitrogn Opiates Screen Negative Methadone Screen Negative Barbiturate Screen Negative Phencyclidine Screen Negative Ur Amphetamines Screen Negative MDMA (Ecstasy) Screen Negative Benzodiazepines Screen Negative Cocaine Screen Negative U Marijuana (THC) Screen Positive A* Blood Type Antibody Screen 01/23/19 01/23/19 01/23/19 12:54 13:00 15:25 WBC RBC Hgb Hct MCV MCH MCHC RDW Plt Count MPV Absolute Neuts (auto) Neutrophils % Lymphocytes % Monocytes % Eosinophils % Basophils % Nucleated RBC % PTT (Actin FS) Anticoagulation Therapy No Result Required. Puncture Site Right radial ABG pH 7.29 L ABG pCO2 at Pt Temp 50.2 H ABG pO2 at Pt Temp 191 H ABG HCO3 23.5 ABG O2 Sat (Measured) 99.4 H ABG O2 Content 13.0 L ABG Base Excess -2.6 L Jasvir Test Positive Carboxyhemoglobin 2.6 H Methemoglobin 0.5 O2 Delivery Device Vent Oxygen Flow Rate 60% Vent Mode A/c Vent Rate 18 Mechanical Rate Yes PEEP 10.0 Pressure Support Vent 500 Sodium Potassium Chloride Carbon Dioxide Anion Gap BUN Creatinine Est GFR (CKD-EPI)AfAm Est GFR (CKD-EPI)NonAf POC Glucometer Random Glucose Lactic Acid 2.0 Calcium Magnesium Total Bilirubin AST ALT Alkaline Phosphatase Creatine Kinase Troponin I B-Natriuretic Peptide Total Protein Albumin Triglycerides Cholesterol Total LDL Cholesterol HDL Cholesterol Urine Color Urine Appearance Urine pH Ur Specific [place] Urine Protein Urine Glucose (UA) Urine Ketones Urine Blood Urine Nitrite Urine Bilirubin Urine Urobilinogen Ur Leukocyte Esterase Urine WBC (Auto) Urine RBC (Auto) Urine Casts (Auto) U Pathogenic Cast Auto U Epithel Cells (Auto) U Sm Round Cell (Auto) Urine Bacteria (Auto) Ur Random Creatinine Ur Random Sodium Ur Random Potassium Ur Random Chloride Ur Random Urea Nitrogn 140 L Opiates Screen Methadone Screen Barbiturate Screen Phencyclidine Screen Ur Amphetamines Screen MDMA (Ecstasy) Screen Benzodiazepines Screen Cocaine Screen U Marijuana (THC) Screen Blood Type Antibody Screen 01/23/19 01/23/19 01/23/19 15:40 18:42 21:20 WBC RBC Hgb Hct MCV MCH MCHC RDW Plt Count MPV Absolute Neuts (auto) Neutrophils % Lymphocytes % Monocytes % Eosinophils % Basophils % Nucleated RBC % PTT (Actin FS) Anticoagulation Therapy Puncture Site ABG pH ABG pCO2 at Pt Temp ABG pO2 at Pt Temp ABG HCO3 ABG O2 Sat (Measured) ABG O2 Content ABG Base Excess Jasvir Test Carboxyhemoglobin Methemoglobin O2 Delivery Device Oxygen Flow Rate Vent Mode Vent Rate Mechanical Rate PEEP Pressure Support Vent Sodium Potassium Chloride Carbon Dioxide Anion Gap BUN Creatinine Est GFR (CKD-EPI)AfAm Est GFR (CKD-EPI)NonAf POC Glucometer 124 Random Glucose Lactic Acid Calcium Magnesium Total Bilirubin AST ALT Alkaline Phosphatase Creatine Kinase 95 Troponin I 0.24 H 0.25 H B-Natriuretic Peptide Total Protein Albumin Triglycerides Cholesterol Total LDL Cholesterol HDL Cholesterol Urine Color Urine Appearance Urine pH Ur Specific [place] Urine Protein Urine Glucose (UA) Urine Ketones Urine Blood Urine Nitrite Urine Bilirubin Urine Urobilinogen Ur Leukocyte Esterase Urine WBC (Auto) Urine RBC (Auto) Urine Casts (Auto) U Pathogenic Cast Auto U Epithel Cells (Auto) U Sm Round Cell (Auto) Urine Bacteria (Auto) Ur Random Creatinine Ur Random Sodium Ur Random Potassium Ur Random Chloride Ur Random Urea Nitrogn Opiates Screen Methadone Screen Barbiturate Screen Phencyclidine Screen Ur Amphetamines Screen MDMA (Ecstasy) Screen Benzodiazepines Screen Cocaine Screen U Marijuana (THC) Screen Blood Type Antibody Screen 01/24/19 01/24/19 01/24/19 06:00 06:00 08:15 WBC 7.2 RBC 3.40 L Hgb 9.2 L Hct 28.8 L D MCV 84.5 MCH 27.0 MCHC 32.0 RDW 14.8 Plt Count 151 D MPV 8.2 Absolute Neuts (auto) 6.3 Neutrophils % 86.5 H D Lymphocytes % 8.1 D Monocytes % 5.2 Eosinophils % 0.0 D Basophils % 0.2 Nucleated RBC % 0 PTT (Actin FS) Anticoagulation Therapy No Result Required. Puncture Site Right radial ABG pH 7.38 ABG pCO2 at Pt Temp 43.1 ABG pO2 at Pt Temp 155 H ABG HCO3 24.9 ABG O2 Sat (Measured) 99.2 H ABG O2 Content 21.1 ABG Base Excess 0.1 Jasvir Test Positive Carboxyhemoglobin Methemoglobin O2 Delivery Device No Result Required. Oxygen Flow Rate Yes Vent Mode No Result Required. Vent Rate No Result Required. Mechanical Rate No Result Required. PEEP Pressure Support Vent No Result Required. Sodium 143 Potassium 3.7 Chloride 106 Carbon Dioxide 25 Anion Gap 12 BUN 32.5 H Creatinine 2.0 H Est GFR (CKD-EPI)AfAm 41.12 Est GFR (CKD-EPI)NonAf 35.48 POC Glucometer Random Glucose 115 H Lactic Acid Calcium 8.3 L Magnesium 2.0 Total Bilirubin 0.6 AST 48 H ALT 91 H Alkaline Phosphatase 102 Creatine Kinase Troponin I B-Natriuretic Peptide Total Protein 6.9 Albumin 3.1 L Triglycerides 66 Cholesterol 140 Total LDL Cholesterol 80 HDL Cholesterol 47 Urine Color Urine Appearance Urine pH Ur Specific [place] Urine Protein Urine Glucose (UA) Urine Ketones Urine Blood Urine Nitrite Urine Bilirubin Urine Urobilinogen Ur Leukocyte Esterase Urine WBC (Auto) Urine RBC (Auto) Urine Casts (Auto) U Pathogenic Cast Auto U Epithel Cells (Auto) U Sm Round Cell (Auto) Urine Bacteria (Auto) Ur Random Creatinine Ur Random Sodium Ur Random Potassium Ur Random Chloride Ur Random Urea Nitrogn Opiates Screen Methadone Screen Barbiturate Screen Phencyclidine Screen Ur Amphetamines Screen MDMA (Ecstasy) Screen Benzodiazepines Screen Cocaine Screen U Marijuana (THC) Screen Blood Type Antibody Screen Active Medications Generic Name Dose Route Start Last Admin Trade Name Freq PRN Reason Stop Dose Admin Aspirin 81 mg 01/24/19 10:00 01/24/19 09:38 Ecotrin - PO Not Given DAILY [facility] Carvedilol 25 mg 01/23/19 22:00 01/24/19 09:38 Coreg - PO Not Given BID [facility] Chlorhexidine Gluconate 1 applic 01/23/19 22:00 01/23/19 21:28 Hibiclens For Decolonization - TP 1 applic HS [facility] Administration Furosemide 40 mg 01/24/19 06:00 01/24/19 06:03 Lasix Injection - IVPUSH 40 mg BID@0600,1400 [facility] Administration Heparin Sodium (Porcine) 5,000 unit 01/23/19 22:00 01/24/19 06:03 Heparin - SQ 5,000 unit TID [facility] Administration Propofol 1,000,000 mcg in 100 mls @ 13.2 mls/hr 01/23/19 11:30 01/24/19 07:00 Diprivan - IVPB 50 mcg/kg/min TITR [facility] 66 mls/hr Titration Protocol 10 MCG/KG/MIN Propofol 1,000,000 mcg in 100 mls @ 5.987 mls/hr 01/23/19 12:30 01/24/19 09: 49 Diprivan - IVPB 50 mcg/kg/min TITR [facility] 29.937 mls/hr Titration Protocol 10 MCG/KG/MIN Nitroglycerin/Dextrose 25 mg in 250 mls @ 60 mls/hr 01/23/19 16:15 01/23/19 23:00 Nitroglycerin 25mg/D5w 250ml IVPB 50 mcg/min TITR [facility] 30 mls/hr Titration 100 MCG/MIN Midazolam HCl 100 mg/ Sodium 100 mls @ 1 mls/hr 01/23/19 19:30 01/24/19 00:00 Chloride IVPB 10 mg/hr TITR [facility] 10 mls/hr Titration Protocol 1 MG/HR Nicardipine HCl 25 mg/ 250 mls @ 25 mls/hr 01/23/19 20:30 01/23/19 21:32 Dextrose IVPB Not Given TITR [facility] Protocol 2.5 MG/HR Lisinopril 40 mg 01/24/19 10:00 01/24/19 09:38 Prinivil PO Not Given DAILY [facility] Mupirocin 1 applic 01/23/19 22:00 01/23/19 21:32 Bactroban Ointment (For Decolonization) - NS 01/28/19 21:59 1 applic BID [facility] Administration Nifedipine 90 mg 01/24/19 10:00 01/24/19 09:38 Procardia Xl - PO Not Given DAILY [facility] ASSESSMENT/PLAN: Acute hypercapenic hypoxic respiratory failure Acute Pulmonary Edema HFrEF, acute Congestive hepatopathy Acute on chronic renal failure Lactic Acidosis Hypertensive Urgency Neuro: Sedation vacation and eventual wean trials Resp: CXR reviewed; improved congestion noted without any overt effusions that developed Vent settings weaned PEEP; will attempt CPAP trial when patient awakes Continue diuresis Lasix 40mg BID Cardiac: Pt currently Cardene 2.5 and Nitro 100 --Will convert to one modality with Cardene preferred --If extubated will initiate home medications if swallow allows BP goal 140-150 SBP / 80-90 DBP Troponin peaked 2/2 to demand from HTN and respiratory distress --Echo reviewed and no change compared to previous in 05/2018 Renal: Acute on chronic renal insufficency now resolved with notable chronic dysfunction --FeUrea calculated at 56% in support of intrinisic injury that has occurred UO net -1300cc from yesterday with diuresis; continue to monitor Endo: No issues ID: No issues at current moment GI: Congestive hepatopathy resolving; LFTs downtrending FEN: Fluids - Avoid due to overload/pulm edema electrolytes - None currently Nutrition - NPO while intubated acutely PPX: DVT - Heparin SQ due to renal dysfunction GI - Not indicated currently Dispo: ICU monitoring Case discussed with Dr. Eris Russell, DO - IM PGY-3 Visit type - Emergency Visit Emergency Visit: Yes ED Registration Date: 01/23/19 Care time: The patient presented to the Emergency Department on the above date and was hospitalized for further evaluation of their emergent condition. - New Patient This patient is new to me today: No - Critical Care Critical Care patient: Yes Total Critical Care Time (in minutes): 45 Critical Care Statement: The care of this patient involved high complexity decision making to prevent further life threatening deterioration of the patient 's condition and/or to evaluate & treat vital organ system(s) failure or risk of failure.
[2019-01-24] MEDS: MUPIROCIN 2% TOPICAL OINTMENT FOR DECOLONIZATION NS SCH ×2 (11:20→22:14)
--- NOTE | 2019-01-24 11:32 | PN ---
Teaching Attending Note Name of Resident: Jose Russell ATTENDING PHYSICIAN STATEMENT I saw and evaluated the patient. I reviewed the resident's note and discussed the case with the resident. I agree with the resident's findings and plan as documented. SUBJECTIVE: Pt seen and examined in the ICU. Remains intubated, sedated. Now on nitro and cardene gtt for hypertension. CXR appears improved. OBJECTIVE: Vital Signs Period Temp Pulse Resp BP Sys/Rosado Pulse Ox Last 24 Hr 96.1 F-98.2 F 77-139 14-31 116-238/80-185 96-100 Intake & Output 01/21/19 01/22/19 01/23/19 01/24/19 23:59 23:59 23:59 23:59 Output Total 1300 1300 Balance -1300 -1300 Weight 101.242 kg 101.333 kg Gen: intubated, sedated Heart: RRR Lung: decreased breath sounds at the bases Abd: soft, nontender Ext: no edema CBC, BMP 01/24/19 06:00 01/24/19 06:00 Active Medications Aspirin (Ecotrin -) 81 mg PO DAILY [facility] Last Admin: 01/24/19 09:38 Dose: Not Given Carvedilol (Coreg -) 25 mg PO BID [facility] Last Admin: 01/24/19 09:38 Dose: Not Given Chlorhexidine Gluconate (Hibiclens For Decolonization -) 1 applic TP HS [facility] Last Admin: 01/23/19 21:28 Dose: 1 applic Furosemide (Lasix Injection -) 40 mg IVPUSH BID@0600,1400 [facility] Last Admin: 01/24/19 06:03 Dose: 40 mg Heparin Sodium (Porcine) (Heparin -) 5,000 unit SQ TID [facility] Last Admin: 01/24/19 06:03 Dose: 5,000 unit Propofol (Diprivan -) 1,000,000 mcg in 100 mls @ 13.2 mls/hr IVPB TITR [facility]; Protocol Last Titration: 01/24/19 07:00 Dose: 50 mcg/kg/min, 66 mls/hr Propofol (Diprivan -) 1,000,000 mcg in 100 mls @ 5.987 mls/hr IVPB TITR [facility]; Protocol Last Titration: 01/24/19 09:49 Dose: 50 mcg/kg/min, 29.937 mls/hr Nitroglycerin/Dextrose (Nitroglycerin 25mg/D5w 250ml) 25 mg in 250 mls @ 60 mls /hr IVPB TITR [facility] Last Titration: 01/23/19 23:00 Dose: 50 mcg/min, 30 mls/hr Midazolam HCl 100 mg/ Sodium (Chloride) 100 mls @ 1 mls/hr IVPB TITR [facility]; Protocol Last Titration: 01/24/19 00:00 Dose: 10 mg/hr, 10 mls/hr Nicardipine HCl 25 mg/ (Dextrose) 250 mls @ 25 mls/hr IVPB TITR [facility]; Protocol Last Admin: 01/23/19 21:32 Dose: Not Given Lisinopril (Prinivil) 40 mg PO DAILY [facility] Last Admin: 01/24/19 09:38 Dose: Not Given Mupirocin (Bactroban Ointment (For Decolonization) -) 1 applic NS BID [facility] Stop: 01/28/19 21:59 Last Admin: 01/24/19 11:20 Dose: 1 applic Nifedipine (Procardia Xl -) 90 mg PO DAILY [facility] Last Admin: 01/24/19 09:38 Dose: Not Given ASSESSMENT AND PLAN: Acute Hypoxic and Hypercapneic Respiratory Failure Acute on Chronic Systolic Heart Failure Acute Pulmonary Edema Hypertensive Urgency Lactic Acidosis Elevated LFTs FABRICIO Smoker - IV lasix - monitor urine output, creatinine - titrate off nitro gtt - taper cardene gtt as tolerated - trend LFTs - echocardiogram - taper Fio2 to keep SpO2 >90% - hold sedation to assess mental status - spontaneous breathing trials as tolerated, can extubate once awake - DVT/GI prophylaxis - ICU monitoring critical care time spent in reviewing chart, evaluating patient and formulating plan 35 min
[2019-01-24] MEDS ORDERED: LABETALOL HCL 5 MG/1 ML (100MG/20 ML VIAL) IVPUSH ONE (12:22)
[2019-01-24] MEDS ORDERED: PT OWN MED DRAWER 7, Y5N ONE (13:21)
--- NOTE | 2019-01-24 13:37 | EKG ---
Test Reason : Blood Pressure : / mmHG Vent. Rate : 110 BPM Atrial Rate : 110 BPM P-R Int : 172 ms QRS Dur : 096 ms QT Int : 362 ms P-R-T Axes : 062 062 261 degrees QTc Int : 489 ms SINUS TACHYCARDIA WITH OCCASIONAL PREMATURE VENTRICULAR COMPLEXES LEFT VENTRICULAR HYPERTROPHY WITH REPOLARIZATION ABNORMALITY ABNORMAL ECG WHEN COMPARED WITH ECG OF 23-JAN-2019 10:23, T WAVE INVERSION NOW EVIDENT IN INFERIOR LEADS Confirmed by DARWIN DUARTE, KEATON ([id number]) on 01/24/2019 1:37:01 PM Referred By: Confirmed By:KEATON GRANADOS MD
--- NOTE | 2019-01-24 13:38 | EKG ---
Test Reason : Blood Pressure : / mmHG Vent. Rate : 128 BPM Atrial Rate : 128 BPM P-R Int : 172 ms QRS Dur : 098 ms QT Int : 370 ms P-R-T Axes : 039 041 090 degrees QTc Int : 540 ms POOR DATA QUALITY, INTERPRETATION MAY BE ADVERSELY AFFECTED SINUS TACHYCARDIA WITH FREQUENT PREMATURE VENTRICULAR COMPLEXES POSSIBLE LEFT ATRIAL ENLARGEMENT LEFT VENTRICULAR HYPERTROPHY WITH REPOLARIZATION ABNORMALITY ABNORMAL ECG WHEN COMPARED WITH ECG OF 23-JAN-2019 10:21, NO SIGNIFICANT CHANGE WAS FOUND Confirmed by KEATON GRANADOS MD ([id number]) on 01/24/2019 1:38:09 PM Referred By: Confirmed By:KEATON GRANADOS MD
[2019-01-24] MEDS: PROPOFOL 1,000,000 MCG/100 ML VIAL IVPB SCH ×3 (13:44→22:16)
--- NOTE | 2019-01-24 14:42 | PN ---
Progress Note, Physician Chief Complaint: respiratory distress- History of Present Illness: Patient is a 58 year old male with a significant past medical history of diastolic CHF, aortic aneurysm (w/mild dilation), FABRICIO, HTN, nonobstructive CAD ( multiple caths done at other tertiary care centers), past hx lithotripsy for left nephrolithiasis, active smoker. He presents to [facility] ED for acute respiratory failure. Patient was intubated in the field after he experienced three days of respiratory difficulty. EMS brought him in while intubated, sedated after he was in acute respiratory failure with no audible lung sounds. On arrival he was also noted to have hypertensive emergency 238/185, tachycardic 130s and hypothermic (96.1f). His ABGs show acute respiratory hypercapneic failure. He was place on a Nitroglycerine drip for hypertensive emergency and given vasotec IV with improvement of his BP. Lasix 40mg x 1 push given, and he was started on propofol and transferred to the icu. Patient remains intubated, sedation being titrated off. on a cardene and nitro drip for elevated bp. - Current Medication List Current Medications: Active Medications Aspirin (Ecotrin -) 81 mg PO DAILY [facility] Last Admin: 01/24/19 09:38 Dose: Not Given Chlorhexidine Gluconate (Hibiclens For Decolonization -) 1 applic TP HS [facility] Last Admin: 01/23/19 21:28 Dose: 1 applic Furosemide (Lasix Injection -) 40 mg IVPUSH BID@0600,1400 [facility] Last Admin: 01/24/19 13:42 Dose: 40 mg Heparin Sodium (Porcine) (Heparin -) 5,000 unit SQ TID [facility] Last Admin: 01/24/19 13:43 Dose: 5,000 unit Propofol (Diprivan -) 1,000,000 mcg in 100 mls @ 5.987 mls/hr IVPB TITR [facility]; Protocol Last Titration: 01/24/19 14:15 Dose: 50 mcg/kg/min, 29.937 mls/hr Nitroglycerin/Dextrose (Nitroglycerin 25mg/D5w 250ml) 25 mg in 250 mls @ 60 mls /hr IVPB TITR [facility] Last Titration: 01/24/19 11:20 Dose: 20 mcg/min, 12 mls/hr Nicardipine HCl 25 mg/ (Dextrose) 250 mls @ 25 mls/hr IVPB TITR [facility]; Protocol Last Titration: 01/24/19 12:20 Dose: 15 mg/hr, 150 mls/hr Labetalol HCl (Normodyne Injection -) 10 mg IVPUSH Q4H PRN PRN Reason: HYPERTENSION Lisinopril (Prinivil) 40 mg PO DAILY [facility] Last Admin: 01/24/19 09:38 Dose: Not Given Mupirocin (Bactroban Ointment (For Decolonization) -) 1 applic NS BID [facility] Stop: 01/28/19 21:59 Last Admin: 01/24/19 11:20 Dose: 1 applic - Objective Vital Signs: Vital Signs Temperature 97.3 F L 01/24/19 10:00 Pulse Rate 108 H 01/24/19 12:20 Respiratory Rate 19 01/24/19 14:00 Blood Pressure 191/134 H 01/24/19 12:20 O2 Sat by Pulse Oximetry (%) 97 01/24/19 14:00 Constitutional: Yes: Other (intubated/sedated) HENT: Yes: Atraumatic Cardiovascular: Yes: Regular Rate and Rhythm Respiratory: Yes: Mechanically Ventilated ...Rectal Exam: Yes: Deferred Integumentary: Yes: WNL Neurological: Yes: Lethargy, Other (sedation off, lethargic) Labs: CBC, BMP 01/24/19 06:00 01/24/19 06:00 INR, PTT INR 1.18 (0.83-1.09) H 01/23/19 10:30 - ....Imaging Chest X-ray: Image Reviewed Problem List - Problems (1) Acute respiratory failure with hypoxia and hypercapnia Assessment/Plan: intubated in the field on propofol Care per ICU team maintain oxygen saturations above 90% sedation being titrated down to evaluate mental status Code(s): J96.01 - ACUTE RESPIRATORY FAILURE WITH HYPOXIA; J96.02 - ACUTE RESPIRATORY FAILURE WITH HYPERCAPNIA (2) Acute pulmonary edema Assessment/Plan: on IV lasix 40mg bid daily weights, monitor intake and output strict intake and output Code(s): J81.0 - ACUTE PULMONARY EDEMA (3) Acute on chronic renal failure Assessment/Plan: monitor with labs if uptrending, consult nephrology Code(s): N17.9 - ACUTE KIDNEY FAILURE, UNSPECIFIED; N18.9 - CHRONIC KIDNEY DISEASE, UNSPECIFIED (4) Rynjn-gf-aawdyyr renal failure Assessment/Plan: monitor with daily labs Code(s): N17.9 - ACUTE KIDNEY FAILURE, UNSPECIFIED; N18.9 - CHRONIC KIDNEY DISEASE, UNSPECIFIED (5) Lactic acidosis Assessment/Plan: elevated on admission, resolved with repeat labs Code(s): E87.2 - ACIDOSIS (6) Hypertensive emergency Assessment/Plan: admitted with hypertensive urgency. now on Nitro/cardene drip. BP monitoring q 4 in the ICU titrate to goal of 140-150 systolic. cardiology consulted and following. Code(s): I16.1 - HYPERTENSIVE EMERGENCY (7) Elevated liver enzymes Assessment/Plan: monitor ast/alt, likely elevated in the setting of volume overload improving on today's labs Code(s): R74.8 - ABNORMAL LEVELS OF OTHER SERUM ENZYMES (8) Prophylactic measure Assessment/Plan: fen no ivf 2/2 to pulmonary edema monitor electrolytes npo heparin tid Code(s): Z29.9 - ENCOUNTER FOR PROPHYLACTIC MEASURES, UNSPECIFIED Visit type - Emergency Visit Emergency Visit: Yes ED Registration Date: 01/23/19 Care time: The patient presented to the Emergency Department on the above date and was hospitalized for further evaluation of their emergent condition. - New Patient This patient is new to me today: No - Critical Care Critical Care patient: Yes Total Critical Care Time (in minutes): 45 Critical Care Statement: The care of this patient involved high complexity decision making to prevent further life threatening deterioration of the patient 's condition and/or to evaluate & treat vital organ system(s) failure or risk of failure.
[2019-01-24] MEDS ORDERED: NITROGLYCERIN 25MG/D5W 250ML 25 MG/250 ML ML IVPB ONE (14:43)
--- NOTE | 2019-01-24 14:50 | ECHO ---
Name: LIA MESA Exam:Adult Echocardiogram Study Date: 01/24/2019 09:02 AM Age: 58 yrs Reason For Study: LV Function Height: 76 in Weight: 220 lb BSA: 2.3 m2 MMode/2D Measurements & Calculations IVSd: 1.7 cm Ao root diam: 3.5 cm LVIDd: 5.4 cm LA dimension: 3.9 cm LVIDs: 3.7 cm LVPWd: 1.8 cm EDV(Teich): 139.1 ml LVOT diam: 2.0 cm ESV(Teich): 58.0 ml LAV (MOD-bp): 104.0 ml Doppler Measurements & Calculations MV E max dileep: 40.5 cm/sec Ao V2 max: 181.0 cm/sec MV A max dileep: 70.6 cm/sec Ao max P.1 mmHg MV E/A: 0.57 AI P1/2t: 569.1 msec MV dec time: 0.08 sec TYRELL(V,D): 1.7 cm2 AI max dileep: 339.1 cm/sec LV V1 max P.8 mmHg AI max P.0 mmHg LV V1 max: 97.4 cm/sec AI dec slope: 174.5 cm/sec2 MR max dileep: 364.8 cm/sec PA V2 max: 108.6 cm/sec MR max P.3 mmHg PA max P.7 mmHg Left Ventricle Moderately severe concentric LVH. Left ventricular systolic function is low normal. The transmitral s pectral Doppler flow pattern is suggestive of impaired LV relaxation. There is borderline global hypokinesis of the left ventricle. Right Ventricle The right ventricular systolic function is normal. Atria Borderline left atrial enlargement. Mitral Valve There is mild mitral valve thickening. There is mild to moderate mitral regurgitation. Tricuspid Valve There is mild tricuspid regurgitation. Doppler findings do not suggest pulmonary hypertension. Aortic Valve There is mild aortic valve thickening. Mild aortic regurgitation. Great Vessels The aortic root is normal size. Pericardium/Pleura There is no pericardial effusion. Interpretation Summary Technically difficult study (pt is intubated and sedated; unable to move into ideal position for opti mal image windows) Moderately severe concentric LVH There is mild mitral valve thickening. There is mild aortic valve thickening. The transmitral spectral Doppler flow pattern is suggestive of impaired LV relaxation. Borderline left atrial enlargement. The aortic root is normal size. There is no pericardial effusion. Left ventricular systolic function is low normal. There is borderline global hypokinesis of the left ventricle. There is mild tricuspid regurgitation. Doppler findings do not suggest pulmonary hypertension. Jonnathan Mills MD 01/24/2019 02:50 PM
[2019-01-24] MEDS: NITROGLYCERIN 25MG/D5W 250ML 25 MG/250 ML ML IVPB SCH (16:00)
[2019-01-24] MEDS ORDERED: fentaNYL CITRATE 250 MCG/5 ML VIAL ONE (17:07)
[2019-01-24] MEDS: FENTANYL INJECTION 500 MCG in DEXTROSE 5%-WATER - 90 ML IVPB SCH (17:15)
--- NOTE | 2019-01-24 18:36 | CON.CARD ---
Consult Consult Specialty:: cardiology Reason for Consultation:: CHF - History of Present Illness Chief Complaint: intubated; sedated (was agitated otherwise) History of Present Illness: 58 yr old black man with h/o systolic/diastolic CHF EF 45% 12/2017 ECHO, sleep apnea, HTN, smoker, presenting to ED in respiratory failure. EMS reports that they were called for respiratory distress. Upon arrival, pt was found to be in respiratory failure, with no audible lung sounds. Pt was intubated in the field. In ED, pt was found to be hypertensive to 240/150, O2 sat 100%, HR 130s. IV NTG was started; after more than an hour of high dosing, pt's BP began to respond favorably. - History Source History Provided By: Medical Record Limitations to Obtaining History: Unresponsive - Past Medical History Cardio/Vascular: Yes: CAD (non-obstx), CHF (Chronic systolic and diastolic CHF) , HTN, Other (NSVT) Pulmonary: Yes: Sleep Apnea Renal/: Yes: Renal Inusuff, Renal Calculi Heme/Onc: Yes: Anemia Psych: Yes: Depression - Alcohol/Substance Use Hx Alcohol Use: No History of Substance Use: reports: Marijuana - Smoking History Smoking history: Unknown if ever smoked Have you smoked in the past 12 months: No Aproximately how many cigarettes per day: 8 - Social History Usual Living Arrangement: With Spouse ADL: Independent Occupation: currently unemployed Home Medications - Allergies Allergies/Adverse Reactions: Allergies Allergy/AdvReac Type Severity Reaction Status Date / Time adhesive tape Allergy Verified 06/14/18 10:29 - Home Medications Home Medications: Ambulatory Orders Duloxetine HCl [Cymbalta -] 60 mg PO DAILY 06/29/16 Aspirin Coated [Ecotrin -] 81 mg PO DAILY #30 tab 01/19/17 Cholecalciferol (Vitamin D3) [Vitamin D3] 50,000 unit PO WEEKLY 09/16/17 Zolpidem Tartrate [Ambien] 10 mg PO PRN PRN 09/16/17 Carvedilol [Coreg -] 25 mg PO BID #60 tablet 01/11/18 Ferrous Sulfate [Iron] 325 mg PO TID 06/15/18 Folic Acid 1 mg PO DAILY 06/15/18 Mirtazapine [Remeron -] 15 mg PO DAILY 06/15/18 Nifedipine ER [Procardia XL -] 90 mg PO DAILY 06/15/18 Potassium Chloride 20 meq PO DAILY 06/15/18 Vitamin B Complex 1 tab PO DAILY 06/15/18 Atorvastatin Ca [Lipitor] 10 mg PO HS 30 Days #30 tablet 06/16/18 Furosemide [Lasix] 40 mg PO DAILY 30 Days #30 tablet 06/16/18 Lisinopril [Prinivil] 40 mg PO DAILY 30 Days #30 tablet 06/16/18 Tamsulosin HCl [Flomax -] 0.4 mg PO DAILY@0830 cap.er.24h 06/16/18 Review of Systems - Review of Systems Constitutional: reports: Lethargy Eyes: reports: No Symptoms HENT: reports: No Symptoms Neck: reports: No Symptoms Cardiovascular: reports: Shortness of Breath Respiratory: reports: SOB - Risk Factors Known Risk Factors: Yes: Age, Gender, Hypercholesterolemia, Hypertension, Other (CHF) Vital Signs: Vital Signs Temperature 97.9 F 01/24/19 14:00 Pulse Rate 99 H 01/24/19 16:00 Respiratory Rate 28 H 01/24/19 17:34 Blood Pressure 156/91 01/24/19 16:00 O2 Sat by Pulse Oximetry (%) 97 01/24/19 14:00 Constitutional: Yes: Other Eyes: Yes: Conjunctiva Clear HENT: Yes: WNL Neck: Yes: Decreased ROM Respiratory: Yes: Intubated, Mechanically Ventilated Gastrointestinal: Yes: Soft Renal/: No: Anuria Cardiovascular: Yes: Tachycardia JVD: Yes Carotid Bruit: No PMI: Non-Displaced Heart Sounds: Yes: S1, S2, S4 Murmur: Yes: Systolic Murmur, Grade 2 Extremities: Yes: Cool Edema: No Peripheral Pulses WNL: Yes Integumentary: Yes: WNL Neurological: Yes: Unresponsive Psychiatric: Yes: Other (unable to assess (intubated; sedated)) - Other Data Labs, Other Data: CBC, BMP 01/24/19 06:00 01/24/19 06:00 INR, PTT INR 1.18 (0.83-1.09) H 01/23/19 10:30 Troponin, BNP 01/23/19 21:20 Troponin I 0.25 H Troponin, BNP 01/23/19 21:20 Troponin I 0.25 H Imaging - Results Chest X-ray: Image Reviewed EKG: Image Reviewed Other: Image Reviewed (telemtry:) Problem List - Problems (1) Acute on chronic systolic and diastolic heart failure, NYHA class 1 Assessment/Plan: F/U BNP + JVD CXR: congestive changes. On NTG IV for HTN control. F/u ECHO for LVEF, diastolic function, valve status. F/u BUN/Cr, electrolytes, daily weight, Is and Os. Code(s): I50.43 - ACUTE ON CHRONIC COMBINED SYSTOLIC AND DIASTOLIC HRT FAIL (2) Acute on chronic renal failure Code(s): N17.9 - ACUTE KIDNEY FAILURE, UNSPECIFIED; N18.9 - CHRONIC KIDNEY DISEASE, UNSPECIFIED (3) Acute respiratory failure with hypoxia and hypercapnia Code(s): J96.01 - ACUTE RESPIRATORY FAILURE WITH HYPOXIA; J96.02 - ACUTE RESPIRATORY FAILURE WITH HYPERCAPNIA (4) Elevated liver enzymes Code(s): R74.8 - ABNORMAL LEVELS OF OTHER SERUM ENZYMES (5) Hypertensive emergency Assessment/Plan: Continue IV NTG; taper off if BP stablizes at an acceptable level. May use IV labetolol or IV cardene until able to take BP medications. ECHO for LVEF (?slightly reduced on previous reading last year). Code(s): I16.1 - HYPERTENSIVE EMERGENCY Assessment/Plan CCU time spent: 75 minutes.
[2019-01-24] MEDS: CHLORHEXIDINE GLUCONATE 4% CLEANSER FOR DECOLONIZATION TP SCH (22:15)
--- NOTE | 2019-01-24 23:17 | PN ---
Progress Note (short form) - Note Progress Note: UPDATE 1: EKG showing sinus rhythm, however possible juncitonal ectopic beats with PVC's noted; will return to cardene 2.5mg/hr on gtt (decreased from 7.5) --Labs are being shown under midnight on previous day. Results as below: Laboratory Tests 01/24/19 00:00 Sodium 141 Potassium 3.3 L Chloride 106 Carbon Dioxide 27 Anion Gap 8 BUN 33.4 H Creatinine 1.8 H Random Glucose 127 H Calcium 8.5 Magnesium 2.1 Troponin I 0.38 H --Replete K+ with KCl x3 bags --Troponin elevated slightly 0.38, however likely 2/2 to labile BP's; maintain smooth control and continue to trend Pt became relatively hypotensive down to MAP of 70. Nitro gtt held at this point. Pt's overhead monitor with questionable junctional rhythm. Cardene gtt held. --Stat EKG ordered --Repeat BMP considering electrolyte abnormalities in setting of Lasix --Stat trop to r/o cardiac enzyme leak progression a/p --Suspect additive effects of sedation, physiological sleep patterns, and AV jung blocking agents on board --Will monitor for further arrhythmia's and follow up on studies --If pt's BP increases to HTN urgency levels will reintroduce antihypertensive gtt as necessary pending EKG results --Otherwise can hold sedation slightly and monitor for discomfort
[2019-01-24] MEDS ORDERED: MAGNESIUM SULF 50% (8.12 MEQ/2 ML-1 GM VIAL) IVPB ONE (23:23)
[2019-01-25 00:30] LABS: BLOOD UREA NITROGEN 33.4 mg/dL (7-18); CALCIUM 8.5 mg/dL (8.5-10.1); CREATININE 1.8 mg/dL (0.55-1.3); MAGNESIUM 2.1 mg/dL (1.8-2.4); POTASSIUM 3.3 mmol/L (3.5-5.1)
[2019-01-25] MEDS: KCL 10 MEQ IVPB 10 MEQ/100 ML INFUS.BAG IVPB SCH ×3 (02:33→02:59)
[2019-01-25] MEDS ORDERED: fentaNYL CITRATE 250 MCG/5 ML VIAL ONE ×3 (02:39→20:14)
[2019-01-25] MEDS: HEPARIN NA (PORCINE) 5,000 UNITS/ML 1ML VIAL SQ SCH ×3 (06:07→22:41)
[2019-01-25] MEDS: FUROSEMIDE 40 MG/4 ML INJECTABLE VIAL IVPUSH SCH ×2 (06:07→13:41)
[2019-01-25 06:18] LABS: BASO % 0.1 % (0-2.0); HEMATOCRIT 30.6 % (35.4-49); HEMOGLOBIN 9.8 GM/dL (11.7-16.9); LYMPH % 6.2 % (8-40); MCHC 32.1 g/dl (32.0-35.9); MEAN PLT VOLUME 7.8 fl (7.5-11.1); MONO % 8.5 % (3.8-10.2); NEUT % 85.2 % (42.8-82.8); PLATELET COUNT 172 K/MM3 (134-434); RBC 3.64 M/mm3 (4.00-5.60); RDW 15.1 % (11.9-15.9); WHITE BLOOD COUNT 8.3 K/mm3 (4.0-10.0)
[2019-01-25 06:45] LABS: ALBUMIN 3.2 g/dl (3.4-5.0); BILIRUBIN,TOTAL 0.8 mg/dL (0.2-1); BLOOD UREA NITROGEN 30.5 mg/dL (7-18); CALCIUM 8.5 mg/dL (8.5-10.1); CREATININE 1.6 mg/dL (0.55-1.3); MAGNESIUM 2.4 mg/dL (1.8-2.4); POTASSIUM 3.6 mmol/L (3.5-5.1); TOT PROT 7.1 g/dl (6.4-8.2)
[2019-01-25] MEDS: PROPOFOL 1,000,000 MCG/100 ML VIAL IVPB SCH ×3 (07:00→13:10)
[2019-01-25] MEDS: ASPIRIN COATED 81 MG TABLET.EC PO SCH (10:43)
[2019-01-25] MEDS: LISINOPRIL 20 MG TABLET (FP) PO SCH (10:43)
[2019-01-25] MEDS: MUPIROCIN 2% TOPICAL OINTMENT FOR DECOLONIZATION NS SCH ×2 (10:55→22:42)
--- NOTE | 2019-01-25 11:32 | PN ---
Teaching Attending Note Name of Resident: Jose Reeder ATTENDING PHYSICIAN STATEMENT I saw and evaluated the patient. I reviewed the resident's note and discussed the case with the resident. I agree with the resident's findings and plan as documented. SUBJECTIVE: Pt seen and examined in the ICU. Remains intubated, sedated on cardene gtt. Tachypneic on CPAP/PS. Diuresing well with lasix. Now with increased secretions and RLL infiltrate on CXR. OBJECTIVE: Vital Signs Period Temp Pulse Resp BP Sys/Rosado Pulse Ox Last 24 Hr 97.9 F-98.4 F 84-108 19-37 105-197/81-136 91-97 Intake & Output 01/22/19 01/23/19 01/24/19 01/25/19 23:59 23:59 23:59 23:59 Intake Total 1421 2240 Output Total 1300 5800 300 Balance -1300 -4379 1940 Weight 101.242 kg 101.333 kg 101.333 kg Gen: intubated, sedated Heart: RRR Lung: scattered rhonchi Abd: soft, nontender Ext: no edema CBC, BMP 01/25/19 05:35 01/25/19 05:35 Active Medications Aspirin (Ecotrin -) 81 mg PO DAILY [facility] Last Admin: 01/25/19 10:43 Dose: Not Given Chlorhexidine Gluconate (Hibiclens For Decolonization -) 1 applic TP HS [facility] Last Admin: 01/24/19 22:15 Dose: 1 applic Furosemide (Lasix Injection -) 40 mg IVPUSH BID@0600,1400 [facility] Last Admin: 01/25/19 06:07 Dose: 40 mg Heparin Sodium (Porcine) (Heparin -) 5,000 unit SQ TID [facility] Last Admin: 01/25/19 06:07 Dose: 5,000 unit Propofol (Diprivan -) 1,000,000 mcg in 100 mls @ 5.987 mls/hr IVPB TITR [facility]; Protocol Last Admin: 01/25/19 07:00 Dose: 70 mcg/kg/min, 41.912 mls/hr Nicardipine HCl 25 mg/ (Dextrose) 250 mls @ 25 mls/hr IVPB TITR [facility]; Protocol Last Admin: 01/24/19 22:13 Dose: Not Given Fentanyl 500 mcg/ Dextrose 100 mls @ 4 mls/hr IVPB TITR [facility]; Protocol Last Titration: 01/25/19 07:00 Dose: 0 mcg/hr, 0 mls/hr Azithromycin (Zithromax 500mg Ivpb (Pre-Docked)) 500 mg in 250 mls @ 250 mls/ hr IVPB DAILY [facility] Ceftriaxone Sodium 1 gm/ (Dextrose) 50 mls @ 100 mls/hr IVPB DAILY [facility]; Protocol Labetalol HCl (Normodyne Injection -) 10 mg IVPUSH Q4H PRN PRN Reason: HYPERTENSION Lisinopril (Prinivil) 40 mg PO DAILY [facility] Last Admin: 01/25/19 10:43 Dose: Not Given Mupirocin (Bactroban Ointment (For Decolonization) -) 1 applic NS BID [facility] Stop: 01/28/19 21:59 Last Admin: 01/25/19 10:55 Dose: 1 applic ASSESSMENT AND PLAN: Acute Hypoxic and Hypercapneic Respiratory Failure Acute on Chronic Systolic Heart Failure Acute Pulmonary Edema Hypertensive Urgency Pneumonia Lactic Acidosis Elevated LFTs FABRICIO Smoker - continue lasix - monitor urine output, creatinine - taper cardene gtt as tolerated - trend LFTs - send sputum culture - start empiric antibiotics - taper Fio2 to keep SpO2 >90% - daily sedation vacations to assess mental status - spontaneous breathing trials as tolerated - start enteral feeds - DVT/GI prophylaxis - ICU monitoring critical care time spent in reviewing chart, evaluating patient and formulating plan 35 min
[2019-01-25] MEDS ORDERED: cefTRIAXone SODIUM 1 GM VIAL ONE (11:50)
[2019-01-25] MEDS ORDERED: DEXTROSE 5%-WATER - 50 ML IVPB ONE (11:51)
[2019-01-25] MEDS: CEFTRIAXONE 1 GM in DEXTROSE 5%-WATER - 50 ML IVPB SCH (11:58)
[2019-01-25] MEDS: AZITHROMYCIN IVPB 500 MG/250 ML BAG IVPB SCH (11:59)
--- NOTE | 2019-01-25 12:45 | PN ---
Physical Exam: SUBJECTIVE: Patient seen and examined at the bedside. Patient remains intubated and sedated. Weaning trials ongoing, patient difficult to wean as he gets very agitated when sedation is decreased. OBJECTIVE: Vital Signs Period Temp Pulse Resp BP Sys/Rosado Pulse Ox Last 24 Hr 97.9 F-98.4 F 84-100 19-39 105-158/81-119 91-97 GENERAL: Intubated and sedated. HEENT: NC/AT, TYLER with pinpoint pupils, sclera anicteric NECK: No JVD appreciated LUNGS: Improved breath sounds CTA b/l, no rales. AC mode of vent HEART: RRR, S1, S2 without murmur ABDOMEN: Soft, NT/ND, hypoactive bowel sounds, no guarding, no suprapubic fullness, no edema noted EXTREMITIES: 2+ DP pulses, warm, well-perfused, no edema. SKIN: Warm, dry, normal turgor, no rashes or lesions noted Laboratory Results - last 24 hr 01/24/19 01/24/19 01/25/19 00:00 05:55 05:35 WBC 8.3 RBC 3.64 L Hgb 9.8 L Hct 30.6 L MCV 84.0 MCH 27.0 MCHC 32.1 RDW 15.1 Plt Count 172 MPV 7.8 Absolute Neuts (auto) 7.1 Neutrophils % 85.2 H Lymphocytes % 6.2 L D Monocytes % 8.5 Eosinophils % 0.0 Basophils % 0.1 Nucleated RBC % 0 Sodium 141 Potassium 3.3 L Chloride 106 Carbon Dioxide 27 Anion Gap 8 BUN 33.4 H Creatinine 1.8 H Est GFR (CKD-EPI)AfAm 46.70 Est GFR (CKD-EPI)NonAf 40.30 Random Glucose 127 H Hemoglobin A1c % 4.5 Calcium 8.5 Magnesium 2.1 Total Bilirubin AST ALT Alkaline Phosphatase Troponin I 0.38 H Total Protein Albumin 01/25/19 01/25/19 05:35 05:35 WBC RBC Hgb Hct MCV MCH MCHC RDW Plt Count MPV Absolute Neuts (auto) Neutrophils % Lymphocytes % Monocytes % Eosinophils % Basophils % Nucleated RBC % Sodium 140 Potassium 3.6 Chloride 104 Carbon Dioxide 27 Anion Gap 9 BUN 30.5 H Creatinine 1.6 H Est GFR (CKD-EPI)AfAm 53.85 Est GFR (CKD-EPI)NonAf 46.46 Random Glucose 148 H Hemoglobin A1c % Calcium 8.5 Magnesium 2.4 Total Bilirubin 0.8 AST 18 ALT 65 H Alkaline Phosphatase 99 Troponin I 0.33 H Total Protein 7.1 Albumin 3.2 L Active Medications Generic Name Dose Route Start Last Admin Trade Name Freq PRN Reason Stop Dose Admin Aspirin 81 mg 01/24/19 10:00 01/25/19 10:43 Ecotrin - PO Not Given DAILY [facility] Chlorhexidine Gluconate 1 applic 01/23/19 22:00 01/24/19 22:15 Hibiclens For Decolonization - TP 1 applic HS [facility] Administration Furosemide 40 mg 01/24/19 06:00 01/25/19 06:07 Lasix Injection - IVPUSH 40 mg BID@0600,1400 [facility] Administration Heparin Sodium (Porcine) 5,000 unit 01/23/19 22:00 01/25/19 06:07 Heparin - SQ 5,000 unit TID [facility] Administration Propofol 1,000,000 mcg in 100 mls @ 5.987 mls/hr 01/23/19 12:30 01/25/19 10: 00 Diprivan - IVPB 70 mcg/kg/min TITR [facility] 41.912 mls/hr Administration Protocol 10 MCG/KG/MIN Nicardipine HCl 25 mg/ 250 mls @ 25 mls/hr 01/23/19 20:30 01/24/19 22:13 Dextrose IVPB Not Given TITR [facility] Protocol 2.5 MG/HR Fentanyl 500 mcg/ Dextrose 100 mls @ 4 mls/hr 01/24/19 16:30 01/25/19 11:59 IVPB 50 mcg/hr TITR [facility] 10 mls/hr Titration Protocol 20 MCG/HR Azithromycin 500 mg in 250 mls @ 250 mls/hr 01/25/19 11:50 01/25/19 11:59 Zithromax 500mg Ivpb (Pre-Docked) IVPB 250 mls/hr DAILY [facility] Administration Ceftriaxone Sodium 1 gm/ 50 mls @ 100 mls/hr 01/25/19 12:00 01/25/19 11:58 Dextrose IVPB 100 mls/hr DAILY [facility] Administration Protocol Labetalol HCl 10 mg 01/24/19 12:33 Normodyne Injection - IVPUSH Q4H PRN HYPERTENSION Lisinopril 40 mg 01/24/19 10:00 01/25/19 10:43 Prinivil PO Not Given DAILY [facility] Mupirocin 1 applic 01/23/19 22:00 01/25/19 10:55 Bactroban Ointment (For Decolonization) - NS 01/28/19 21:59 1 applic BID [facility] Administration ASSESSMENT/PLAN: Chay Lopez is a 58 year old male with a PMHx of Acute hypercapenic hypoxic respiratory failure Acute Pulmonary Edema HFrEF, acute Congestive hepatopathy Acute on chronic renal failure Lactic Acidosis Hypertensive Urgency Neuro - Sedation vacation - wean trials - currently on propofol and fentanyl Cardiac - Pt currently Cardene 10 - If extubated will initiate home medications if swallow allows - BP goal 140-150 SBP / 80-90 DBP - Troponin peaked 2/2 to demand from HTN and respiratory distress, peak at 0.38 - Echo reviewed and no change compared to previous in 05/2018, some impaired LV relaxation and hypokinesis of L ventricle, no pulmonary HTN - continue aspirin - labetalol prn - continue home lisinopril Respiratory - CXR reviewed; improved congestion noted without any overt effusions that developed - Vent settings rate 18 TV 500 O2 60 PEEP 5, trial CPAP when patient more awake - Continue diuresis Lasix 40mg BID - ET tube adjusted 2 cm Renal - Acute on chronic renal insufficency now resolved with notable chronic dysfunction - FeUrea calculated at 56% in support of intrinisic injury that has occurred - continue Lasix Gastrointestinal - Congestive hepatopathy resolving; LFTs downtrending - NGT tube placed for feeds and meds Infectious Disease - no WBC, no fevers, continue to monitor - sputum cultures - ceftriaxone and azithromycin for coverage of CAP FEN - Avoid fluids due to overload/pulm edema - continue to monitor electrolytes and replete as necessary - Tube Feed Jevity Prophylaxis -Heparin 5000 subq tid Code - full code Lines - LFA inserted 01/23 - LH inserted 01/23 - R wrist inserted 01/23 Dispo - continue to monitor in ICU CASE DISCUSSED WITH DR JOSE LUIS HERNANDEZ DO PGY-1 Visit type - Emergency Visit Emergency Visit: No - New Patient This patient is new to me today: Yes Date on this admission: 01/25/19 - Critical Care Critical Care patient: Yes Total Critical Care Time (in minutes): 35 Critical Care Statement: The care of this patient involved high complexity decision making to prevent further life threatening deterioration of the patient 's condition and/or to evaluate & treat vital organ system(s) failure or risk of failure.
[2019-01-25] MEDS ORDERED: PROPOFOL 1,000,000 MCG/100 ML VIAL ONE (13:36)
--- NOTE | 2019-01-25 13:50 | EKG ---
Test Reason : Blood Pressure : / mmHG Vent. Rate : 089 BPM Atrial Rate : 089 BPM P-R Int : 000 ms QRS Dur : 096 ms QT Int : 438 ms P-R-T Axes : 000 047 163 degrees QTc Int : 532 ms SINUS RHYTHM WITH BRIEF ATRIAL RUN VOLTAGE CRITERIA FOR LEFT VENTRICULAR HYPERTROPHY PROLONGED QT ABNORMAL ECG Confirmed by ALEXANDRA DUARTE, CLARENCE ([id number]) on 01/25/2019 1:50:14 PM Referred By: Confirmed By:CLARENCE MORRIS MD
[2019-01-25] MEDS ORDERED: MIDAZOLAM 100 MG in SODIUM CHLORIDE 100 ML IVPB SCH (15:00)
[2019-01-25] MEDS: FENTANYL INJECTION 500 MCG in DEXTROSE 5%-WATER - 90 ML IVPB SCH ×2 (15:18→20:52)
--- NOTE | 2019-01-25 16:55 | PN ---
Progress Note, Physician Chief Complaint: respiratory distress- History of Present Illness: Patient is a 58 year old male with a significant past medical history of diastolic CHF, aortic aneurysm (w/mild dilation), FABRICIO, HTN, nonobstructive CAD ( multiple caths done at other tertiary care centers), past hx lithotripsy for left nephrolithiasis, active smoker. He presents to [facility] ED for acute respiratory failure. Patient was intubated in the field after he experienced three days of respiratory difficulty. EMS brought him in while intubated, sedated after he was in acute respiratory failure with no audible lung sounds. On arrival he was also noted to have hypertensive emergency 238/185, tachycardic 130s and hypothermic (96.1f). His ABGs show acute respiratory hypercapneic failure. - Current Medication List Current Medications: Active Medications Aspirin (Ecotrin -) 81 mg PO DAILY [facility] Last Admin: 01/25/19 10:43 Dose: Not Given Chlorhexidine Gluconate (Hibiclens For Decolonization -) 1 applic TP HS [facility] Last Admin: 01/24/19 22:15 Dose: 1 applic Furosemide (Lasix Injection -) 40 mg IVPUSH BID@0600,1400 [facility] Last Admin: 01/25/19 13:41 Dose: 40 mg Heparin Sodium (Porcine) (Heparin -) 5,000 unit SQ TID [facility] Last Admin: 01/25/19 13:40 Dose: 5,000 unit Propofol (Diprivan -) 1,000,000 mcg in 100 mls @ 5.987 mls/hr IVPB TITR [facility]; Protocol Last Admin: 01/25/19 13:10 Dose: 70 mcg/kg/min, 41.912 mls/hr Nicardipine HCl 25 mg/ (Dextrose) 250 mls @ 25 mls/hr IVPB TITR [facility]; Protocol Last Titration: 01/25/19 07:00 Dose: 10 mg/hr, 100 mls/hr Fentanyl 500 mcg/ Dextrose 100 mls @ 4 mls/hr IVPB TITR [facility]; Protocol Last Titration: 01/25/19 11:59 Dose: 50 mcg/hr, 10 mls/hr Azithromycin (Zithromax 500mg Ivpb (Pre-Docked)) 500 mg in 250 mls @ 250 mls/ hr IVPB DAILY [facility] Last Admin: 01/25/19 11:59 Dose: 250 mls/hr Ceftriaxone Sodium 1 gm/ (Dextrose) 50 mls @ 100 mls/hr IVPB DAILY [facility]; Protocol Last Admin: 01/25/19 11:58 Dose: 100 mls/hr Midazolam HCl 100 mg/ Sodium (Chloride) 100 mls @ 2 mls/hr IVPB TITR [facility]; Protocol Labetalol HCl (Normodyne Injection -) 10 mg IVPUSH Q4H PRN PRN Reason: HYPERTENSION Lisinopril (Prinivil) 40 mg PO DAILY [facility] Last Admin: 01/25/19 10:43 Dose: Not Given Mupirocin (Bactroban Ointment (For Decolonization) -) 1 applic NS BID [facility] Stop: 01/28/19 21:59 Last Admin: 01/25/19 10:55 Dose: 1 applic - Objective Vital Signs: Vital Signs Temperature 98.0 F 01/25/19 14:00 Pulse Rate 92 H 01/25/19 14:00 Respiratory Rate 29 H 01/25/19 16:50 Blood Pressure 149/98 01/25/19 14:00 O2 Sat by Pulse Oximetry (%) 91 L 01/25/19 10:00 Constitutional: Yes: Other (intubated) HENT: Yes: Atraumatic Neck: Yes: Supple Cardiovascular: Yes: Regular Rate and Rhythm, Tachycardia Respiratory: Yes: Intubated, Tachypnea Edema: No Labs: CBC, BMP 01/25/19 05:35 01/25/19 05:35 INR, PTT INR 1.18 (0.83-1.09) H 01/23/19 10:30 Problem List - Problems (1) Acute respiratory failure with hypoxia and hypercapnia Assessment/Plan: intubated in the field on propofol Care per ICU team maintain oxygen saturations above 90% sedation being titrated down to evaluate mental status started on emperic antibiotics (azitrhomycin and ceftriaxone for pneumonia) Code(s): J96.01 - ACUTE RESPIRATORY FAILURE WITH HYPOXIA; J96.02 - ACUTE RESPIRATORY FAILURE WITH HYPERCAPNIA (2) Acute pulmonary edema Assessment/Plan: on IV lasix 40mg bid daily weights, monitor intake and output strict intake and output Code(s): J81.0 - ACUTE PULMONARY EDEMA (3) Acute on chronic renal failure Assessment/Plan: monitor with labs if uptrending, consult nephrology Code(s): N17.9 - ACUTE KIDNEY FAILURE, UNSPECIFIED; N18.9 - CHRONIC KIDNEY DISEASE, UNSPECIFIED (4) [id number] renal failure Assessment/Plan: creatinine improving from admission. monitor with daily labs Code(s): N17.9 - ACUTE KIDNEY FAILURE, UNSPECIFIED; N18.9 - CHRONIC KIDNEY DISEASE, UNSPECIFIED (5) Lactic acidosis Assessment/Plan: elevated on admission, resolved with repeat labs Code(s): E87.2 - ACIDOSIS (6) Hypertensive emergency Assessment/Plan: admitted with hypertensive urgency. on nicardipine drip. BP monitoring per ICU protocol cardiology consulted and following. Code(s): I16.1 - HYPERTENSIVE EMERGENCY (7) Elevated liver enzymes Assessment/Plan: monitor ast/alt, likely elevated in the setting of volume overload improving on today's labs Code(s): R74.8 - ABNORMAL LEVELS OF OTHER SERUM ENZYMES (8) Prophylactic measure Assessment/Plan: fen no ivf 2/2 to pulmonary edema monitor electrolytes npo heparin tid Code(s): Z29.9 - ENCOUNTER FOR PROPHYLACTIC MEASURES, UNSPECIFIED Visit type - Emergency Visit Emergency Visit: Yes ED Registration Date: 01/23/19 Care time: The patient presented to the Emergency Department on the above date and was hospitalized for further evaluation of their emergent condition. - New Patient This patient is new to me today: No - Critical Care Critical Care patient: Yes Total Critical Care Time (in minutes): 45 Critical Care Statement: The care of this patient involved high complexity decision making to prevent further life threatening deterioration of the patient 's condition and/or to evaluate & treat vital organ system(s) failure or risk of failure.
[2019-01-25] MEDS: NICARDIPINE 25 MG in DEXTROSE 5%-WATER - 240 ML IVPB SCH (20:57)
[2019-01-25] MEDS: CHLORHEXIDINE GLUCONATE 4% CLEANSER FOR DECOLONIZATION TP SCH (22:42)
[2019-01-26] MEDS: FENTANYL INJECTION 500 MCG in DEXTROSE 5%-WATER - 90 ML IVPB SCH ×3 (01:17→19:40)
[2019-01-26] MEDS ORDERED: ACETAMINOPHEN 1000 MG/100 ML VIAL (NON FORMULARY) IVPB PRN (02:32)
[2019-01-26 04:23] LABS: EPI CELLS 2.3 /HPF (0-5/HPF); HYALINE CASTS 9 /lpf (0-8); PH,URINE 5.5 (5.0-8.0); URINE APPEARANCE CLEAR; URINE BILIRUBIN NEGATIVE (NEGATIVE); URINE COLOR YELLOW; URINE GLUCOSE (UA) NEGATIVE (NEGATIVE); URINE KETONE NEGATIVE (NEGATIVE); URINE LEUK ESTERASE TRACE (NEGATIVE); URINE NITRITE NEGATIVE (NEGATIVE); URINE PROTEIN 1+ (NEGATIVE); URINE RBC 41 /hpf (0-4); URINE WBC 3 /hpf (0-5)
[2019-01-26] MEDS ORDERED: fentaNYL CITRATE 250 MCG/5 ML VIAL ONE ×4 (04:36→21:59)
[2019-01-26] MEDS: PROPOFOL 1,000,000 MCG/100 ML VIAL IVPB SCH ×2 (04:50→12:53)
[2019-01-26] MEDS ORDERED: PT OWN MED DRAWER 7, Y5N ONE ×2 (05:00→11:02)
[2019-01-26] MEDS: HEPARIN NA (PORCINE) 5,000 UNITS/ML 1ML VIAL SQ SCH ×3 (05:06→21:00)
[2019-01-26] MEDS: FUROSEMIDE 40 MG/4 ML INJECTABLE VIAL IVPUSH SCH ×2 (05:06→13:57)
[2019-01-26 06:54] LABS: ALBUMIN 2.7 g/dl (3.4-5.0); BLOOD UREA NITROGEN 41.9 mg/dL (7-18); CALCIUM 8.3 mg/dL (8.5-10.1); CREATININE 2.3 mg/dL (0.55-1.3); MAGNESIUM 1.9 mg/dL (1.8-2.4); PHOSPHOROUS 4.2 mg/dL (2.5-4.9); POTASSIUM 4.1 mmol/L (3.5-5.1); TOT PROT 6.7 g/dl (6.4-8.2)
[2019-01-26 07:29] LABS: BASO % 0.6 % (0-2.0); EOS % 0.2 % (0-4.5); HEMATOCRIT 27.8 % (35.4-49); HEMOGLOBIN 8.8 GM/dL (11.7-16.9); LYMPH % 8.7 % (8-40); MCH 27.1 pg (25.7-33.7); MCHC 31.8 g/dl (32.0-35.9); MEAN CELL VOLUME 85.1 fl (80-96); MEAN PLT VOLUME 8.4 fl (7.5-11.1); NEUT % 82.5 % (42.8-82.8); PLATELET COUNT 156 K/MM3 (134-434); RBC 3.26 M/mm3 (4.00-5.60); RDW 15.2 % (11.9-15.9); WHITE BLOOD COUNT 8.3 K/mm3 (4.0-10.0)
--- NOTE | 2019-01-26 09:04 | PN ---
Progress Note, Physician Chief Complaint: respiratory distress, now with persistent fevers History of Present Illness: Patient is a 58 year old male with a significant past medical history of diastolic CHF, aortic aneurysm (w/mild dilation), FABRICIO, HTN, nonobstructive CAD ( multiple caths done at other tertiary care centers), past hx lithotripsy for left nephrolithiasis, active smoker. He presents to [facility] ED for acute respiratory failure. Patient was intubated in the field after he experienced three days of respiratory difficulty. EMS brought him in while intubated, sedated after he was in acute respiratory failure with no audible lung sounds. On arrival he was also noted to have hypertensive emergency 238/185, tachycardic 130s and hypothermic (96.1f). His ABGs show acute respiratory hypercapneic failure. Patient started on emperic antibiotics. fevers persisted overnight. ID consulted. - Current Medication List Current Medications: Active Medications Acetaminophen (Ofirmev Injection -) 1,000 mg IVPB Q6H PRN PRN Reason: FEVER Last Admin: 01/26/19 03:54 Dose: 1,000 mg Aspirin (Ecotrin -) 81 mg PO DAILY [facility] Last Admin: 01/25/19 10:43 Dose: Not Given Chlorhexidine Gluconate (Hibiclens For Decolonization -) 1 applic TP HS [facility] Last Admin: 01/25/19 22:42 Dose: 1 applic Furosemide (Lasix Injection -) 40 mg IVPUSH BID@0600,1400 [facility] Last Admin: 01/26/19 05:06 Dose: 40 mg Heparin Sodium (Porcine) (Heparin -) 5,000 unit SQ TID [facility] Last Admin: 01/26/19 05:06 Dose: 5,000 unit Propofol (Diprivan -) 1,000,000 mcg in 100 mls @ 5.987 mls/hr IVPB TITR [facility]; Protocol Last Admin: 01/26/19 04:50 Dose: 50 mcg/kg/min, 29.937 mls/hr Nicardipine HCl 25 mg/ (Dextrose) 250 mls @ 25 mls/hr IVPB TITR [facility]; Protocol Last Titration: 01/25/19 21:30 Dose: 0 mg/hr, 0 mls/hr Fentanyl 500 mcg/ Dextrose 100 mls @ 4 mls/hr IVPB TITR [facility]; Protocol Last Admin: 01/26/19 04:48 Dose: 125 mcg/hr, 25 mls/hr Azithromycin (Zithromax 500mg Ivpb (Pre-Docked)) 500 mg in 250 mls @ 250 mls/ hr IVPB DAILY [facility] Last Admin: 01/25/19 11:59 Dose: 250 mls/hr Ceftriaxone Sodium 1 gm/ (Dextrose) 50 mls @ 100 mls/hr IVPB DAILY [facility]; Protocol Last Admin: 01/25/19 11:58 Dose: 100 mls/hr Midazolam HCl 100 mg/ Sodium (Chloride) 100 mls @ 2 mls/hr IVPB TITR [facility]; Protocol Last Admin: 01/25/19 18:17 Dose: Not Given Labetalol HCl (Normodyne Injection -) 10 mg IVPUSH Q4H PRN PRN Reason: HYPERTENSION Lisinopril (Prinivil) 40 mg PO DAILY [facility] Last Admin: 01/25/19 10:43 Dose: Not Given Mupirocin (Bactroban Ointment (For Decolonization) -) 1 applic NS BID [facility] Stop: 01/28/19 21:59 Last Admin: 01/25/19 22:42 Dose: 1 applic - Objective Vital Signs: Vital Signs Temperature 100.7 F H 01/26/19 07:48 Pulse Rate 101 H 01/26/19 06:00 Respiratory Rate 21 H 01/26/19 06:00 Blood Pressure 110/73 01/26/19 06:00 O2 Sat by Pulse Oximetry (%) 100 01/26/19 06:00 Constitutional: Yes: Other HENT: Yes: Atraumatic Neck: Yes: Supple Cardiovascular: Yes: Tachycardia Respiratory: Yes: Accessory Muscle Use, Mechanically Ventilated Gastrointestinal: Yes: Soft ...Rectal Exam: Yes: Deferred Genitourinary: Yes: Rubio Present Extremities: Yes: WNL Edema: No Labs: CBC, BMP 01/26/19 05:25 01/26/19 05:25 INR, PTT INR 1.18 (0.83-1.09) H 01/23/19 10:30 Problem List - Problems (1) Severe sepsis Assessment/Plan: persistent fevers, tachycardia, low bp, tachypnea, meghan sepsis likely secondary to pneumonia vs other source blood cultures/urine cultures pending chest xray worsening congestion lactic acidosis initially, but resolved with ivf ID consulted Code(s): A41.9 - SEPSIS, UNSPECIFIED ORGANISM; R65.20 - SEVERE SEPSIS WITHOUT SEPTIC SHOCK (2) Acute respiratory failure with hypoxia and hypercapnia Assessment/Plan: intubated in the field on propofol Care per ICU team maintain oxygen saturations above 90% sedation being titrated down to evaluate mental status started on emperic antibiotics (azitrhomycin and ceftriaxone for pneumonia) Code(s): J96.01 - ACUTE RESPIRATORY FAILURE WITH HYPOXIA; J96.02 - ACUTE RESPIRATORY FAILURE WITH HYPERCAPNIA (3) Acute pulmonary edema Assessment/Plan: on IV lasix 40mg bid daily weights, monitor intake and output strict intake and output Code(s): J81.0 - ACUTE PULMONARY EDEMA (4) Acute on chronic renal failure Assessment/Plan: monitor with labs, likely secondary to sepsis if uptrending, consult nephrology Code(s): N17.9 - ACUTE KIDNEY FAILURE, UNSPECIFIED; N18.9 - CHRONIC KIDNEY DISEASE, UNSPECIFIED (5) Dicmd-rb-zuroshy renal failure Assessment/Plan: creatinine improving from admission. monitor with daily labs Code(s): N17.9 - ACUTE KIDNEY FAILURE, UNSPECIFIED; N18.9 - CHRONIC KIDNEY DISEASE, UNSPECIFIED (6) Lactic acidosis Assessment/Plan: elevated on admission, resolved with repeat labs Code(s): E87.2 - ACIDOSIS (7) Hypertensive emergency Assessment/Plan: admitted with hypertensive urgency. on nicardipine drip. BP monitoring per ICU protocol cardiology consulted and following. Code(s): I16.1 - HYPERTENSIVE EMERGENCY (8) Elevated liver enzymes Assessment/Plan: monitor ast/alt, likely elevated in the setting of volume overload improving on today's labs Code(s): R74.8 - ABNORMAL LEVELS OF OTHER SERUM ENZYMES (9) Prophylactic measure Assessment/Plan: fen no ivf 2/2 to pulmonary edema monitor electrolytes npo, started on jevity feeds heparin tid full code Code(s): Z29.9 - ENCOUNTER FOR PROPHYLACTIC MEASURES, UNSPECIFIED Visit type - Emergency Visit Emergency Visit: Yes ED Registration Date: 01/23/19 Care time: The patient presented to the Emergency Department on the above date and was hospitalized for further evaluation of their emergent condition. - New Patient This patient is new to me today: No - Critical Care Critical Care patient: Yes Total Critical Care Time (in minutes): 45 Critical Care Statement: The care of this patient involved high complexity decision making to prevent further life threatening deterioration of the patient 's condition and/or to evaluate & treat vital organ system(s) failure or risk of failure.
[2019-01-26] MEDS ORDERED: cefTRIAXone SODIUM 1 GM VIAL ONE (09:14)
[2019-01-26] MEDS ORDERED: DEXTROSE 5%-WATER - 50 ML IVPB ONE (09:14)
[2019-01-26] MEDS: CEFTRIAXONE 1 GM in DEXTROSE 5%-WATER - 50 ML IVPB SCH (09:24)
[2019-01-26] MEDS: AZITHROMYCIN IVPB 500 MG/250 ML BAG IVPB SCH (10:50)
--- NOTE | 2019-01-26 11:06 | CON.ID ---
Consult Consult Specialty:: infectious doses Referred by:: Yisel Reason for Consultation:: sepsis,resp failure,r/o pneuonia - History of Present Illness Chief Complaint: ams resp failure History of Present Illness: patient is intubated and sedated in the icu ,history obtained from the charts and the staff 58 year old male with a significant past medical history of diastolic CHF, aortic aneurysm (w/mild dilation), FABRICIO, HTN, nonobstructive CAD (multiple caths done at other tertiary care centers), past hx lithotripsy for left nephrolithiasis, active smoker. He presents to [facility] ED for acute respiratory failure. Patient was intubated in the field after he experienced three days of respiratory difficulty. EMS brought him in while intubated, sedated after he was in acute respiratory failure with no audible lung sounds. On arrival he was also noted to have hypertensive emergency 238/185, tachycardic 130s and hypothermic (96.1f). His ABGs show acute respiratory hypercapneic failure. He was place on a Nitroglycerine drip for hypertensive emergency and given vasotec IV with improvement of his BP. Lasix 40mg x 1 push given, and he was started on propofol. the above was the history on admission - History Source History Provided By: Medical Record Limitations to Obtaining History: Clinical Condition - Past Medical History Cardio/Vascular: Yes: CAD (non-obstx), CHF (Chronic systolic and diastolic CHF) , HTN, Other (NSVT) Pulmonary: Yes: Sleep Apnea Renal/: Yes: Renal Inusuff, Renal Calculi Psych: Yes: Depression - Alcohol/Substance Use Hx Alcohol Use: No History of Substance Use: reports: Marijuana - Smoking History Smoking history: Unknown if ever smoked Have you smoked in the past 12 months: No Aproximately how many cigarettes per day: 8 - Social History Usual Living Arrangement: With Spouse ADL: Independent Occupation: currently unemployed Home Medications - Allergies Allergies/Adverse Reactions: Allergies Allergy/AdvReac Type Severity Reaction Status Date / Time adhesive tape Allergy Verified 06/14/18 10:29 - Home Medications Home Medications: Ambulatory Orders Duloxetine HCl [Cymbalta -] 60 mg PO DAILY 06/29/16 Aspirin Coated [Ecotrin -] 81 mg PO DAILY #30 tab 01/19/17 Cholecalciferol (Vitamin D3) [Vitamin D3] 50,000 unit PO WEEKLY 09/16/17 Zolpidem Tartrate [Ambien] 10 mg PO PRN PRN 09/16/17 Carvedilol [Coreg -] 25 mg PO BID #60 tablet 01/11/18 Ferrous Sulfate [Iron] 325 mg PO TID 06/15/18 Folic Acid 1 mg PO DAILY 06/15/18 Mirtazapine [Remeron -] 15 mg PO DAILY 06/15/18 Nifedipine ER [Procardia XL -] 90 mg PO DAILY 06/15/18 Potassium Chloride 20 meq PO DAILY 06/15/18 Vitamin B Complex 1 tab PO DAILY 06/15/18 Atorvastatin Ca [Lipitor] 10 mg PO HS 30 Days #30 tablet 06/16/18 Furosemide [Lasix] 40 mg PO DAILY 30 Days #30 tablet 06/16/18 Lisinopril [Prinivil] 40 mg PO DAILY 30 Days #30 tablet 06/16/18 Tamsulosin HCl [Flomax -] 0.4 mg PO DAILY@0830 cap.er.24h 06/16/18 Review of Systems Unable to obtain ROS, reason: unable to obtain Physical Exam Vital Signs: Vital Signs Temperature 100.7 F H 01/26/19 07:48 Pulse Rate 102 H 01/26/19 09:38 Respiratory Rate 20 01/26/19 08:25 Blood Pressure 110/73 01/26/19 06:00 O2 Sat by Pulse Oximetry (%) 99 01/26/19 09:38 Constitutional: Yes: Other Neck: Yes: Supple, Trachea Midline Cardiovascular: Yes: Tachycardia Respiratory: Yes: Intubated, Mechanically Ventilated, Rhonchi Gastrointestinal: Yes: Soft, Hypoactive Bowel Sounds Musculoskeletal: Yes: WNL Extremities: Yes: WNL Neurological: Yes: Other Psychiatric: Yes: Other Labs: CBC, BMP 01/26/19 05:25 01/26/19 05:25 Imaging - Results Chest X-ray: Report Reviewed, Image Reviewed Cat Scan: Report Reviewed, Image Reviewed Assessment/Plan - Problems (1) Acute on chronic systolic and diastolic heart failure, NYHA class 1 Code(s): I50.43 - ACUTE ON CHRONIC COMBINED SYSTOLIC AND DIASTOLIC HRT FAIL (2) Acute on chronic renal failure Code(s): N17.9 - ACUTE KIDNEY FAILURE, UNSPECIFIED; N18.9 - CHRONIC KIDNEY DISEASE, UNSPECIFIED Due to above, resume lisinopril once renal fxn stabilizes (3) Acute respiratory failure with hypoxia and hypercapnia Code(s): J96.01 - ACUTE RESPIRATORY FAILURE WITH HYPOXIA; J96.02 - ACUTE RESPIRATORY FAILURE WITH HYPERCAPNIA (4) Elevated liver enzymes Code(s): R74.8 - ABNORMAL LEVELS OF OTHER SERUM ENZYMES Hepatic congestion, LFTs downtrending (5) Hypertensive emergency Code(s): I16.1 - HYPERTENSIVE EMERGENCY (6) Elevated troponin Code(s): R74.8 - ABNORMAL LEVELS OF OTHER SERUM ENZYMES (7) Paroxysmal afib with RVR I48.0 (8) PNA plan abx resp support sputum cx nutrition await for all results rest as per the team cc 45 min
[2019-01-26] MEDS ORDERED: CEFEPIME 1 GM in DEXTROSE 5%-WATER - 50 ML IVPB SCH (11:15)
--- NOTE | 2019-01-26 11:16 | PN ---
Physical Exam: SUBJECTIVE: Patient seen and examined at bedside. Weaning trials ongoing, but patient is difficult as he continues to be agitated when sedation is decreased. Overnight the patient began to spike fevers, this morning his temperature was 101.3. Emperic antibiotics were started q6 and we are awaiting the results and speciation of blood cultures, sputum cultures and urine cultures. Of note, over the past day the patient's chest x-ray appears to have worsened, now showing a R sided consolidation that was not visible previously. Additionally the patient' s respiratory secretions appear thicker and more of a brownish color. Will continue to follow culture results to direct antibiotic choice. OBJECTIVE: Vital Signs Period Temp Pulse Resp BP Sys/Rosado Pulse Ox Last 24 Hr 98 F-102.3 F 73-102 18-39 95-149/69-98 99-100 GENERAL: Intubated and sedated. HEAD: Normal with no signs of trauma. EYES: PERRL, sclera anicteric, pinpoint pupils NECK: Trachea midline, no JVD, supple. LUNGS: Breath sounds equal to auscultation bilaterally, mechanical no wheezes, no crackles, no accessory muscle use, AC mode of vent. HEART: Regular rate and rhythm, S1, S2 without murmur, rub or gallop. ABDOMEN: Soft, nontender, nondistended, normoactive bowel sounds, no guarding, no rebound. EXTREMITIES: 2+ pulses, warm, well-perfused, no edema. SKIN: Warm, dry, normal turgor, no rashes or lesions noted Laboratory Results - last 24 hr 01/26/19 01/26/19 01/26/19 02:45 05:25 05:25 WBC 8.3 RBC 3.26 L Hgb 8.8 L Hct 27.8 L MCV 85.1 MCH 27.1 MCHC 31.8 L RDW 15.2 Plt Count 156 MPV 8.4 Absolute Neuts (auto) 6.8 Neutrophils % 82.5 Lymphocytes % 8.7 D Monocytes % 8.0 Eosinophils % 0.2 D Basophils % 0.6 D Nucleated RBC % 0 Sodium 137 Potassium 4.1 Chloride 102 Carbon Dioxide 30 Anion Gap 5 L BUN 41.9 H Creatinine 2.3 H Est GFR (CKD-EPI)AfAm 34.73 Est GFR (CKD-EPI)NonAf 29.96 Random Glucose 103 Calcium 8.3 L Phosphorus 4.2 Magnesium 1.9 Total Bilirubin 2.0 H AST 35 ALT 39 Alkaline Phosphatase 74 Total Protein 6.7 Albumin 2.7 L Urine Color Yellow Urine Appearance Clear Urine pH 5.5 D Ur Specific Hurricane 1.018 Urine Protein 1+ H Urine Glucose (UA) Negative Urine Ketones Negative Urine Blood 1+ H Urine Nitrite Negative Urine Bilirubin Negative Urine Urobilinogen 1.0 Ur Leukocyte Esterase Trace Urine WBC (Auto) 3 Urine RBC (Auto) 41 Urine Casts (Auto) 9 U Epithel Cells (Auto) 2.3 Urine Bacteria (Auto) 3.0 Active Medications Generic Name Dose Route Start Last Admin Trade Name Freq PRN Reason Stop Dose Admin Acetaminophen 1,000 mg 01/26/19 02:32 01/26/19 03:54 Ofirmev Injection - IVPB 1,000 mg Q6H PRN Administration FEVER Aspirin 81 mg 01/24/19 10:00 01/25/19 10:43 Ecotrin - PO Not Given DAILY [facility] Chlorhexidine Gluconate 1 applic 01/23/19 22:00 01/25/19 22:42 Hibiclens For Decolonization - TP 1 applic HS [facility] Administration Furosemide 40 mg 01/24/19 06:00 01/26/19 05:06 Lasix Injection - IVPUSH 01/26/19 14:00 40 mg BID@0600,1400 [facility] Administration Furosemide 40 mg 01/27/19 10:00 Lasix Injection - IVPUSH DAILY [facility] Heparin Sodium (Porcine) 5,000 unit 01/23/19 22:00 01/26/19 05:06 Heparin - SQ 5,000 unit TID [facility] Administration Propofol 1,000,000 mcg in 100 mls @ 5.987 mls/hr 01/23/19 12:30 01/26/19 04: 50 Diprivan - IVPB 50 mcg/kg/min TITR [facility] 29.937 mls/hr Administration Protocol 10 MCG/KG/MIN Nicardipine HCl 25 mg/ 250 mls @ 25 mls/hr 01/23/19 20:30 01/25/19 21:30 Dextrose IVPB 0 mg/hr TITR [facility] 0 mls/hr Titration Protocol 2.5 MG/HR Fentanyl 500 mcg/ Dextrose 100 mls @ 4 mls/hr 01/24/19 16:30 01/26/19 04:48 IVPB 125 mcg/hr TITR [facility] 25 mls/hr Administration Protocol 20 MCG/HR Azithromycin 500 mg in 250 mls @ 250 mls/hr 01/25/19 11:50 01/26/19 10:50 Zithromax 500mg Ivpb (Pre-Docked) IVPB 250 mls/hr DAILY [facility] Administration Cefepime HCl 1 gm in 50 mls @ 100 mls/hr 01/26/19 11:15 Maxipime 1 Gm Premix Ivpb IVPB BID [facility] Protocol Sodium Chloride 1,000 mls @ 75 mls/hr 01/26/19 11:15 Normal Saline - IV ASDIR [facility] Labetalol HCl 10 mg 01/24/19 12:33 Normodyne Injection - IVPUSH Q4H PRN HYPERTENSION Mupirocin 1 applic 01/23/19 22:00 01/25/19 22:42 Bactroban Ointment (For Decolonization) - NS 01/28/19 21:59 1 applic BID [facility] Administration ASSESSMENT/PLAN: Chay Lopez is a 58 year old male with a PMHx of Acute hypercapenic hypoxic respiratory failure Acute Pulmonary Edema HFrEF, acute Congestive hepatopathy Acute on chronic renal failure Lactic Acidosis Hypertensive Urgency Neuro - currently on propofol and fentanyl - increase sedation as patient is still asynchronous with his vent settings Cardiac - Pt currently Cardene 10 - If extubated will initiate home medications if swallow allows - BP goal 140-150 SBP / 80-90 DBP - Troponin peaked 2/2 to demand from HTN and respiratory distress, peak at 0.38 - Echo reviewed and no change compared to previous in 05/2018, some impaired LV relaxation and hypokinesis of L ventricle, no pulmonary HTN - continue aspirin - labetalol prn - holding lisinopril for now in light of worsening renal function Respiratory - CXR reviewed; newly visible consolidation present in RLL - Vent settings rate 14 TV 500 O2 60 PEEP 8 - Change Lasix 40mg BID to Lasix 40mg Daily - ET tube adjusted 2 cm yesterday as it was ~8cm above the satsih Renal - Acute on chronic renal insufficency now resolved with notable chronic dysfunction - FeUrea calculated at 56% in support of intrinisic injury that has occurred - Renal function worsening with BUN/Cr at 41.9/2.3 today, continue to follow - continue Lasix but change from 40mg BID to 40mg once Daily Gastrointestinal - Congestive hepatopathy resolving; LFTs downtrending - NGT tube placed for feeds and meds - Tbili rising, continue to follow Infectious Disease - Febrile to 101.3 this morning - F/u sputum, blood, and urine cultures - ceftriaxone and azithromycin for coverage of CAP FEN - NS @ 75cc/hr due to worsening renal function - continue to monitor electrolytes and replete as necessary - Tube Feed Jevity Prophylaxis -Heparin 5000 subq tid Code - full code Lines - LFA inserted 01/23 - LH inserted 01/23 - R wrist inserted 01/23 Dispo - continue to monitor in ICU CASE DISCUSSED WITH DR AMAYA Visit type - Emergency Visit Emergency Visit: Yes ED Registration Date: 01/23/19 Care time: The patient presented to the Emergency Department on the above date and was hospitalized for further evaluation of their emergent condition. - New Patient This patient is new to me today: Yes Date on this admission: 01/26/19 - Critical Care Critical Care patient: Yes Total Critical Care Time (in minutes): 40 Critical Care Statement: The care of this patient involved high complexity decision making to prevent further life threatening deterioration of the patient 's condition and/or to evaluate & treat vital organ system(s) failure or risk of failure. ATTENDING PHYSICIAN STATEMENT I saw and evaluated the patient. I reviewed the resident's note and discussed the case with the resident. I agree with the resident's findings and plan as documented. SUBJECTIVE: OBJECTIVE: ASSESSMENT AND PLAN:
[2019-01-26] MEDS: ASPIRIN COATED 81 MG TABLET.EC PO SCH (11:19)
--- NOTE | 2019-01-26 11:20 | PN ---
Teaching Attending Note Name of Resident: Rosio Thornton ATTENDING PHYSICIAN STATEMENT I saw and evaluated the patient. I reviewed the resident's note and discussed the case with the resident. I agree with the resident's findings and plan as documented. SUBJECTIVE: Pt seen and examined in the ICU. Remains intubated, sedated. Febrile overnight. Off cardene gtt, blood pressures now borderline. OBJECTIVE: Vital Signs Period Temp Pulse Resp BP Sys/Rosado Pulse Ox Last 24 Hr 98 F-102.3 F 73-102 18-39 95-149/69-98 99-100 Intake & Output 01/23/19 01/24/19 01/25/19 01/26/19 23:59 23:59 23:59 23:59 Intake Total 1421 4197 870 Output Total 1300 5800 3200 290 Balance -1300 -4379 997 580 Weight 101.242 kg 101.333 kg 101.151 kg Gen: intubated, sedated Heart: RRR Lung: scattered rhonchi Abd: soft, nontender Ext: no edema CBC, BMP 01/26/19 05:25 01/26/19 05:25 Active Medications Acetaminophen (Ofirmev Injection -) 1,000 mg IVPB Q6H PRN PRN Reason: FEVER Last Admin: 01/26/19 03:54 Dose: 1,000 mg Aspirin (Ecotrin -) 81 mg PO DAILY [facility] Last Admin: 01/25/19 10:43 Dose: Not Given Chlorhexidine Gluconate (Hibiclens For Decolonization -) 1 applic TP HS [facility] Last Admin: 01/25/19 22:42 Dose: 1 applic Furosemide (Lasix Injection -) 40 mg IVPUSH BID@0600,1400 [facility] Stop: 01/26/19 14:00 Last Admin: 01/26/19 05:06 Dose: 40 mg Furosemide (Lasix Injection -) 40 mg IVPUSH DAILY [facility] Heparin Sodium (Porcine) (Heparin -) 5,000 unit SQ TID [facility] Last Admin: 01/26/19 05:06 Dose: 5,000 unit Propofol (Diprivan -) 1,000,000 mcg in 100 mls @ 5.987 mls/hr IVPB TITR [facility]; Protocol Last Admin: 01/26/19 04:50 Dose: 50 mcg/kg/min, 29.937 mls/hr Nicardipine HCl 25 mg/ (Dextrose) 250 mls @ 25 mls/hr IVPB TITR [facility]; Protocol Last Titration: 01/25/19 21:30 Dose: 0 mg/hr, 0 mls/hr Fentanyl 500 mcg/ Dextrose 100 mls @ 4 mls/hr IVPB TITR [facility]; Protocol Last Admin: 01/26/19 04:48 Dose: 125 mcg/hr, 25 mls/hr Azithromycin (Zithromax 500mg Ivpb (Pre-Docked)) 500 mg in 250 mls @ 250 mls/ hr IVPB DAILY [facility] Last Admin: 01/26/19 10:50 Dose: 250 mls/hr Cefepime HCl (Maxipime 1 Gm Premix Ivpb) 1 gm in 50 mls @ 100 mls/hr IVPB BID [facility]; Protocol Sodium Chloride (Normal Saline -) 1,000 mls @ 75 mls/hr IV [facility] Labetalol HCl (Normodyne Injection -) 10 mg IVPUSH Q4H PRN PRN Reason: HYPERTENSION Mupirocin (Bactroban Ointment (For Decolonization) -) 1 applic NS BID [facility] Stop: 01/28/19 21:59 Last Admin: 01/25/19 22:42 Dose: 1 applic ASSESSMENT AND PLAN: Acute Hypoxic and Hypercapneic Respiratory Failure Acute on Chronic Systolic Heart Failure Acute Pulmonary Edema Hypertensive Urgency Pneumonia Sepsis Lactic Acidosis Elevated LFTs FABRICIO Smoker - hold lasix today - would restart gentle hydration - monitor urine output, creatinine - trend LFTs - f/u sputum culture - antibiotics per ID - taper Fio2 to keep SpO2 >90% - daily sedation vacations to assess mental status - spontaneous breathing trials as tolerated - enteral feeds - DVT/GI prophylaxis - ICU monitoring critical care time spent in reviewing chart, evaluating patient and formulating plan 35 min
[2019-01-26] MEDS: MUPIROCIN 2% TOPICAL OINTMENT FOR DECOLONIZATION NS SCH ×2 (11:22→21:00)
[2019-01-26] MEDS: SODIUM CHLORIDE 1,000 ML IV SCH (12:00)
--- NOTE | 2019-01-26 17:08 | PN ---
Progress Note, Physician - Current Medication List Current Medications: Active Medications Acetaminophen (Ofirmev Injection -) 1,000 mg IVPB Q6H PRN PRN Reason: FEVER Last Admin: 01/26/19 03:54 Dose: 1,000 mg Aspirin (Ecotrin -) 81 mg PO DAILY [facility] Last Admin: 01/26/19 11:19 Dose: 81 mg Chlorhexidine Gluconate (Hibiclens For Decolonization -) 1 applic TP HS [facility] Last Admin: 01/25/19 22:42 Dose: 1 applic Furosemide (Lasix Injection -) 40 mg IVPUSH DAILY [facility] Heparin Sodium (Porcine) (Heparin -) 5,000 unit SQ TID [facility] Last Admin: 01/26/19 13:56 Dose: 5,000 unit Propofol (Diprivan -) 1,000,000 mcg in 100 mls @ 5.987 mls/hr IVPB TITR [facility]; Protocol Last Titration: 01/26/19 15:10 Dose: 50 mcg/kg/min, 29.937 mls/hr Nicardipine HCl 25 mg/ (Dextrose) 250 mls @ 25 mls/hr IVPB TITR [facility]; Protocol Last Titration: 01/25/19 21:30 Dose: 0 mg/hr, 0 mls/hr Fentanyl 500 mcg/ Dextrose 100 mls @ 4 mls/hr IVPB TITR [facility]; Protocol Last Titration: 01/26/19 15:09 Dose: 125 mcg/hr, 25 mls/hr Azithromycin (Zithromax 500mg Ivpb (Pre-Docked)) 500 mg in 250 mls @ 250 mls/ hr IVPB DAILY [facility] Last Admin: 01/26/19 10:50 Dose: 250 mls/hr Sodium Chloride (Normal Saline -) 1,000 mls @ 75 mls/hr IV [facility] Last Admin: 01/26/19 12:00 Dose: 75 mls/hr Cefepime HCl 1 gm/ Dextrose 100 mls @ 100 mls/hr IVPB BID [facility]; Protocol Labetalol HCl (Normodyne Injection -) 10 mg IVPUSH Q4H PRN PRN Reason: HYPERTENSION Mupirocin (Bactroban Ointment (For Decolonization) -) 1 applic NS BID [facility] Stop: 01/28/19 21:59 Last Admin: 01/26/19 11:22 Dose: 1 applic - Objective Vital Signs: Vital Signs Temperature 99.3 F 01/26/19 16:00 Pulse Rate 104 H 01/26/19 16:00 Respiratory Rate 23 H 01/26/19 16:20 Blood Pressure 119/99 01/26/19 16:00 O2 Sat by Pulse Oximetry (%) 99 01/26/19 10:00 Labs: CBC, BMP 01/26/19 05:25 01/26/19 05:25 INR, PTT INR 1.18 (0.83-1.09) H 01/23/19 10:30 Problem List - Problems (1) Acute on chronic systolic and diastolic heart failure, NYHA class 1 Code(s): I50.43 - ACUTE ON CHRONIC COMBINED SYSTOLIC AND DIASTOLIC HRT FAIL (2) Acute on chronic renal failure Code(s): N17.9 - ACUTE KIDNEY FAILURE, UNSPECIFIED; N18.9 - CHRONIC KIDNEY DISEASE, UNSPECIFIED (3) Acute respiratory failure with hypoxia and hypercapnia Code(s): J96.01 - ACUTE RESPIRATORY FAILURE WITH HYPOXIA; J96.02 - ACUTE RESPIRATORY FAILURE WITH HYPERCAPNIA (4) Elevated liver enzymes Code(s): R74.8 - ABNORMAL LEVELS OF OTHER SERUM ENZYMES (5) Hypertensive emergency Code(s): I16.1 - HYPERTENSIVE EMERGENCY
--- NOTE | 2019-01-26 17:09 | PN ---
Progress Note, Physician - Current Medication List Current Medications: Active Medications Acetaminophen (Ofirmev Injection -) 1,000 mg IVPB Q6H PRN PRN Reason: FEVER Last Admin: 01/26/19 03:54 Dose: 1,000 mg Aspirin (Ecotrin -) 81 mg PO DAILY [facility] Last Admin: 01/26/19 11:19 Dose: 81 mg Chlorhexidine Gluconate (Hibiclens For Decolonization -) 1 applic TP HS [facility] Last Admin: 01/25/19 22:42 Dose: 1 applic Furosemide (Lasix Injection -) 40 mg IVPUSH DAILY [facility] Heparin Sodium (Porcine) (Heparin -) 5,000 unit SQ TID [facility] Last Admin: 01/26/19 13:56 Dose: 5,000 unit Propofol (Diprivan -) 1,000,000 mcg in 100 mls @ 5.987 mls/hr IVPB TITR [facility]; Protocol Last Titration: 01/26/19 15:10 Dose: 50 mcg/kg/min, 29.937 mls/hr Nicardipine HCl 25 mg/ (Dextrose) 250 mls @ 25 mls/hr IVPB TITR [facility]; Protocol Last Titration: 01/25/19 21:30 Dose: 0 mg/hr, 0 mls/hr Fentanyl 500 mcg/ Dextrose 100 mls @ 4 mls/hr IVPB TITR [facility]; Protocol Last Titration: 01/26/19 15:09 Dose: 125 mcg/hr, 25 mls/hr Azithromycin (Zithromax 500mg Ivpb (Pre-Docked)) 500 mg in 250 mls @ 250 mls/ hr IVPB DAILY [facility] Last Admin: 01/26/19 10:50 Dose: 250 mls/hr Sodium Chloride (Normal Saline -) 1,000 mls @ 75 mls/hr IV [facility] Last Admin: 01/26/19 12:00 Dose: 75 mls/hr Cefepime HCl 1 gm/ Dextrose 100 mls @ 100 mls/hr IVPB BID [facility]; Protocol Labetalol HCl (Normodyne Injection -) 10 mg IVPUSH Q4H PRN PRN Reason: HYPERTENSION Mupirocin (Bactroban Ointment (For Decolonization) -) 1 applic NS BID [facility] Stop: 01/28/19 21:59 Last Admin: 01/26/19 11:22 Dose: 1 applic - Objective Vital Signs: Vital Signs Temperature 99.3 F 01/26/19 16:00 Pulse Rate 104 H 01/26/19 16:00 Respiratory Rate 23 H 01/26/19 16:20 Blood Pressure 119/99 01/26/19 16:00 O2 Sat by Pulse Oximetry (%) 99 01/26/19 10:00 Labs: CBC, BMP 01/26/19 05:25 01/26/19 05:25 INR, PTT INR 1.18 (0.83-1.09) H 01/23/19 10:30 Problem List - Problems (1) Acute on chronic systolic and diastolic heart failure, NYHA class 1 Code(s): I50.43 - ACUTE ON CHRONIC COMBINED SYSTOLIC AND DIASTOLIC HRT FAIL (2) Acute on chronic renal failure Code(s): N17.9 - ACUTE KIDNEY FAILURE, UNSPECIFIED; N18.9 - CHRONIC KIDNEY DISEASE, UNSPECIFIED (3) Acute respiratory failure with hypoxia and hypercapnia Code(s): J96.01 - ACUTE RESPIRATORY FAILURE WITH HYPOXIA; J96.02 - ACUTE RESPIRATORY FAILURE WITH HYPERCAPNIA (4) Elevated liver enzymes Code(s): R74.8 - ABNORMAL LEVELS OF OTHER SERUM ENZYMES (5) Hypertensive emergency Code(s): I16.1 - HYPERTENSIVE EMERGENCY
--- NOTE | 2019-01-26 17:09 | PN ---
Progress Note, Physician Chief Complaint: Pt remains intubated, sedated. History of Present Illness: 58 yr old black man with h/o systolic/diastolic CHF EF 45% 12/2017 ECHO, sleep apnea, HTN, smoker, presenting to ED in respiratory failure. EMS reports that they were called for respiratory distress. Upon arrival, pt was found to be in respiratory failure, with no audible lung sounds. Pt was intubated in the field. In ED, pt was found to be hypertensive to 240/150, O2 sat 100%, HR 130s. IV NTG was started; after more than an hour of high dosing, pt's BP began to respond favorably. - Current Medication List Current Medications: Active Medications Acetaminophen (Ofirmev Injection -) 1,000 mg IVPB Q6H PRN PRN Reason: FEVER Last Admin: 01/26/19 03:54 Dose: 1,000 mg Aspirin (Ecotrin -) 81 mg PO DAILY [facility] Last Admin: 01/26/19 11:19 Dose: 81 mg Chlorhexidine Gluconate (Hibiclens For Decolonization -) 1 applic TP HS [facility] Last Admin: 01/25/19 22:42 Dose: 1 applic Furosemide (Lasix Injection -) 40 mg IVPUSH DAILY [facility] Heparin Sodium (Porcine) (Heparin -) 5,000 unit SQ TID [facility] Last Admin: 01/26/19 13:56 Dose: 5,000 unit Propofol (Diprivan -) 1,000,000 mcg in 100 mls @ 5.987 mls/hr IVPB TITR [facility]; Protocol Last Titration: 01/26/19 15:10 Dose: 50 mcg/kg/min, 29.937 mls/hr Nicardipine HCl 25 mg/ (Dextrose) 250 mls @ 25 mls/hr IVPB TITR [facility]; Protocol Last Titration: 01/25/19 21:30 Dose: 0 mg/hr, 0 mls/hr Fentanyl 500 mcg/ Dextrose 100 mls @ 4 mls/hr IVPB TITR [facility]; Protocol Last Titration: 01/26/19 15:09 Dose: 125 mcg/hr, 25 mls/hr Azithromycin (Zithromax 500mg Ivpb (Pre-Docked)) 500 mg in 250 mls @ 250 mls/ hr IVPB DAILY [facility] Last Admin: 01/26/19 10:50 Dose: 250 mls/hr Sodium Chloride (Normal Saline -) 1,000 mls @ 75 mls/hr IV [facility] Last Admin: 01/26/19 12:00 Dose: 75 mls/hr Cefepime HCl 1 gm/ Dextrose 100 mls @ 100 mls/hr IVPB BID [facility]; Protocol Labetalol HCl (Normodyne Injection -) 10 mg IVPUSH Q4H PRN PRN Reason: HYPERTENSION Mupirocin (Bactroban Ointment (For Decolonization) -) 1 applic NS BID [facility] Stop: 01/28/19 21:59 Last Admin: 01/26/19 11:22 Dose: 1 applic - Objective Vital Signs: Vital Signs Temperature 99.3 F 01/26/19 16:00 Pulse Rate 104 H 01/26/19 16:00 Respiratory Rate 23 H 01/26/19 16:20 Blood Pressure 119/99 01/26/19 16:00 O2 Sat by Pulse Oximetry (%) 99 01/26/19 10:00 Constitutional: Yes: Other Eyes: Yes: Conjunctiva Clear Neck: Yes: Decreased ROM Labs: CBC, BMP 01/26/19 05:25 01/26/19 05:25 INR, PTT INR 1.18 (0.83-1.09) H 01/23/19 10:30 Problem List - Problems (1) Acute on chronic systolic and diastolic heart failure, NYHA class 1 Assessment/Plan: Remains intubated. CXR: worsening congestion. Pt now noted to be septic: ?PNA; febrile to 102 F. BP, formerly elevated and difficult to control, is now borderline hypotensive. ECHO: low-normal LVEF; abnormal diastolic compliance; mild-moderate MR. Now off all antihypertensives (was receiving Cardene, diuretics). On antibiotics per ID. Worsening renal function acutely; despite CHF, may need hydration for sepsis and renal dysfunction temporarily. F/u BUN/Cr, electrolytes, daily weight, Is and Os. Code(s): I50.43 - ACUTE ON CHRONIC COMBINED SYSTOLIC AND DIASTOLIC HRT FAIL (2) Acute on chronic renal failure Code(s): N17.9 - ACUTE KIDNEY FAILURE, UNSPECIFIED; N18.9 - CHRONIC KIDNEY DISEASE, UNSPECIFIED (3) Acute respiratory failure with hypoxia and hypercapnia Code(s): J96.01 - ACUTE RESPIRATORY FAILURE WITH HYPOXIA; J96.02 - ACUTE RESPIRATORY FAILURE WITH HYPERCAPNIA (4) Elevated liver enzymes Code(s): R74.8 - ABNORMAL LEVELS OF OTHER SERUM ENZYMES (5) Hypertensive emergency Code(s): I16.1 - HYPERTENSIVE EMERGENCY (6) Elevated troponin Assessment/Plan: Remains chronically elevated (0.3), without significant change from previous admission in the past several years. F/u prior cardiac studies. Would consider coronary artery evaluation once stable. Code(s): R74.8 - ABNORMAL LEVELS OF OTHER SERUM ENZYMES Assessment/Plan CCU time spent: 35 minutes.
[2019-01-26] MEDS ORDERED: CEFEPIME HCL 1 GM VIAL (RESTRICTED TO ID) ONE (20:50)
[2019-01-26] MEDS ORDERED: DEXTROSE 5%-WATER 100 ML IVPB ONE (20:50)
[2019-01-26] MEDS: CHLORHEXIDINE GLUCONATE 4% CLEANSER FOR DECOLONIZATION TP SCH (21:02)
[2019-01-26] MEDS: CEFEPIME 1 GM in DEXTROSE 5%-WATER 100 ML IVPB SCH (21:03)
[2019-01-26] MEDS ORDERED: MIDAZOLAM HCL 2 MG/2 ML SINGLE DOSE VIAL IVPUSH PRN (21:34)
[2019-01-26] MEDS ORDERED: MIDAZOLAM HCL 2 MG/2 ML SINGLE DOSE VIAL IVPUSH SCH (21:45)
[2019-01-27] MEDS ORDERED: fentaNYL CITRATE 250 MCG/5 ML VIAL ONE ×2 (03:18→08:40)
[2019-01-27] MEDS: NICARDIPINE 25 MG in DEXTROSE 5%-WATER - 240 ML IVPB SCH (04:55)
[2019-01-27] MEDS: HEPARIN NA (PORCINE) 5,000 UNITS/ML 1ML VIAL SQ SCH (05:54)
[2019-01-27 06:37] LABS: ALBUMIN 2.4 g/dl (3.4-5.0); BILIRUBIN,TOTAL 1.5 mg/dL (0.2-1); BLOOD UREA NITROGEN 51.8 mg/dL (7-18); CALCIUM 8.3 mg/dL (8.5-10.1); MAGNESIUM 2.4 mg/dL (1.8-2.4); PHOSPHOROUS 4.9 mg/dL (2.5-4.9); POTASSIUM 3.7 mmol/L (3.5-5.1); TOT PROT 6.2 g/dl (6.4-8.2)
[2019-01-27 07:20] LABS: BASO % 0.9 % (0-2.0); EOS % 1.8 % (0-4.5); HEMOGLOBIN 8.5 GM/dL (11.7-16.9); MCH 27.5 pg (25.7-33.7); MCHC 32.7 g/dl (32.0-35.9); MEAN CELL VOLUME 84.1 fl (80-96); MEAN PLT VOLUME 7.8 fl (7.5-11.1); MONO % 8.9 % (3.8-10.2); NEUT % 80.4 % (42.8-82.8); PLATELET COUNT 141 K/MM3 (134-434); RBC 3.09 M/mm3 (4.00-5.60); RDW 15.1 % (11.9-15.9); WHITE BLOOD COUNT 9.3 K/mm3 (4.0-10.0)
--- NOTE | 2019-01-27 08:12 | PN ---
Progress Note (short form) - Note Progress Note: Pulm/CCM SUBJECTIVE: -off cardene gtt -Fio2 down -+ fluid balance -more awake, no fever OBJECTIVE: Vital Signs Temp 98.6 F 01/27/19 04:00 Pulse 90 01/27/19 06:00 Resp 14 01/27/19 07:02 BP 109/90 01/27/19 06:00 Pulse Ox 99 01/26/19 21:00 Intake & Output 01/26/19 01/26/19 01/27/19 11:59 23:59 11:59 Intake Total 870 1551 2180 Output Total 290 1500 350 Balance 009 68 5910 Weight 93.123 kg 95.368 kg Intake: IV 680 1251 576 DIPRIVAN - 1,000,000 mcg 360 416 308 In 100 ml @ 10 MCG/KG/MIN 5.987 mls/hr IVPB TITR [facility] Rx#:[id number] Normal Saline - 1,000 ml 500 @ 75 mls/hr IV [facility] Rx#:[id number] Saline Lock 10 Saline Lock 2 10 Sublimaze Injection - 500 300 335 268 Mcg In D5w - 90 ml @ 20 MCG/HR 4 mls/hr IVPB TITR [facility] Rx#:[id number] IVPB 100 300 944 Oral 0 Tube Feeding 40 360 Tube Irrigant 50 300 Output: Urine 290 1500 350 Rubio 290 1500 350 Other: Voiding Method Indwelling Catheter Indwelling Catheter Bowel Movement No No No Weight Measurement Method Built in [facility] Built in [facility] Current Medications Acetaminophen (Ofirmev Injection -) 1,000 mg IVPB Q6H PRN PRN Reason: FEVER Last Admin: 01/26/19 03:54 Dose: 1,000 mg Aspirin (Ecotrin -) 81 mg PO DAILY [facility] Last Admin: 01/26/19 11:19 Dose: 81 mg Chlorhexidine Gluconate (Hibiclens For Decolonization -) 1 applic TP HS [facility] Last Admin: 01/26/19 21:02 Dose: 1 applic Furosemide (Lasix Injection -) 40 mg IVPUSH DAILY [facility] Heparin Sodium (Porcine) (Heparin -) 5,000 unit SQ TID [facility] Last Admin: 01/27/19 05:54 Dose: 5,000 unit Propofol (Diprivan -) 1,000,000 mcg in 100 mls @ 5.987 mls/hr IVPB TITR [facility]; Protocol Last Titration: 01/26/19 15:10 Dose: 50 mcg/kg/min, 29.937 mls/hr Nicardipine HCl 25 mg/ (Dextrose) 250 mls @ 25 mls/hr IVPB TITR [facility]; Protocol Last Admin: 01/27/19 04:55 Dose: Not Given Fentanyl 500 mcg/ Dextrose 100 mls @ 4 mls/hr IVPB TITR [facility]; Protocol Last Admin: 01/26/19 19:40 Dose: 125 mcg/hr, 25 mls/hr Azithromycin (Zithromax 500mg Ivpb (Pre-Docked)) 500 mg in 250 mls @ 250 mls/ hr IVPB DAILY [facility] Last Admin: 01/26/19 10:50 Dose: 250 mls/hr Sodium Chloride (Normal Saline -) 1,000 mls @ 75 mls/hr IV [facility] Last Admin: 01/26/19 12:00 Dose: 75 mls/hr Cefepime HCl 1 gm/ Dextrose 100 mls @ 100 mls/hr IVPB BID [facility]; Protocol Last Admin: 01/26/19 21:03 Dose: 100 mls/hr Labetalol HCl (Normodyne Injection -) 10 mg IVPUSH Q4H PRN PRN Reason: HYPERTENSION Midazolam HCl (Versed -) 2 mg IVPUSH Q1H PRN PRN Reason: AGITATION Mupirocin (Bactroban Ointment (For Decolonization) -) 1 applic NS BID [facility] Stop: 01/28/19 21:59 Last Admin: 01/26/19 21:00 Dose: 1 applic Heart: RRR Lung: coarse rhonchi, yellow secretions Abd: soft, nontender, + BS Ext: no edema Neuro: opens eyes to noxious stimuli CBC,CMP WBC 9.3 K/mm3 (4.0-10.0) 01/27/19 05:25 RBC 3.09 M/mm3 (4.00-5.60) L 01/27/19 05:25 Hgb 8.5 GM/dL (11.7-16.9) L 01/27/19 05:25 Hct 26.0 % (35.4-49) L 01/27/19 05:25 MCV 84.1 fl (80-96) 01/27/19 05:25 MCH 27.5 pg (25.7-33.7) 01/27/19 05:25 MCHC 32.7 g/dl (32.0-35.9) 01/27/19 05:25 RDW 15.1 % (11.9-15.9) 01/27/19 05:25 Plt Count 141 K/MM3 (134-434) 01/27/19 05:25 MPV 7.8 fl (7.5-11.1) 01/27/19 05:25 Absolute Neuts (auto) 7.5 K/mm3 (1.5-8.0) 01/27/19 05:25 Neutrophils % 80.4 % (42.8-82.8) 01/27/19 05:25 Lymphocytes % 8.0 % (8-40) 01/27/19 05:25 Monocytes % 8.9 % (3.8-10.2) 01/27/19 05:25 Eosinophils % 1.8 % (0-4.5) D 01/27/19 05:25 Basophils % 0.9 % (0-2.0) 01/27/19 05:25 Nucleated RBC % 0 % (0-0) 01/27/19 05:25 Sodium 142 mmol/L (136-145) 01/27/19 05:25 Potassium 3.7 mmol/L (3.5-5.1) 01/27/19 05:25 Chloride 105 mmol/L (98-107) 01/27/19 05:25 Carbon Dioxide 30 mmol/L (21-32) 01/27/19 05:25 Anion Gap 7 MMOL/L (8-16) L 01/27/19 05:25 BUN 51.8 mg/dL (7-18) H 01/27/19 05:25 Creatinine 2.0 mg/dL (0.55-1.3) H 01/27/19 05:25 Est GFR (CKD-EPI)AfAm 41.12 01/27/19 05:25 Est GFR (CKD-EPI)NonAf 35.48 01/27/19 05:25 POC Glucometer 124 UNITS (80-120) 01/23/19 18:42 Random Glucose 96 mg/dL (74-106) 01/27/19 05:25 Hemoglobin A1c % 4.5 % (4.2-6.3) 01/24/19 05:55 Lactic Acid 2.0 mmol/L (0.4-2.0) 01/23/19 15:25 Calcium 8.3 mg/dL (8.5-10.1) L 01/27/19 05:25 Phosphorus 4.9 mg/dL (2.5-4.9) 01/27/19 05:25 Magnesium 2.4 mg/dL (1.8-2.4) 01/27/19 05:25 Total Bilirubin 1.5 mg/dL (0.2-1) H 01/27/19 05:25 AST 29 U/L (15-37) 01/27/19 05:25 ALT 30 U/L (13-61) 01/27/19 05:25 Alkaline Phosphatase 73 U/L (45-117) 01/27/19 05:25 Creatine Kinase 95 U/L (26-308) 01/23/19 15:40 Troponin I 0.33 ng/ml (0.00-0.05) H 01/25/19 05:35 B-Natriuretic Peptide 5684.8 pg/ml (5-125) H 01/23/19 10:30 Total Protein 6.2 g/dl (6.4-8.2) L 01/27/19 05:25 Albumin 2.4 g/dl (3.4-5.0) L 01/27/19 05:25 Triglycerides 66 mg/dL (0-150) 01/24/19 06:00 Cholesterol 140 mg/dL (50-200) 01/24/19 06:00 Total LDL Cholesterol 80 mg/dL (5-100) 01/24/19 06:00 HDL Cholesterol 47 mg/dL (40-60) 01/24/19 06:00 ASSESSMENT AND PLAN: Acute Hypoxic and Hypercapneic Respiratory Failure Acute on Chronic Systolic Heart Failure Acute Pulmonary Edema Hypertensive Urgency Pneumonia Sepsis Lactic Acidosis Elevated LFTs FABRICIO Smoke - even fluid balance - monitor urine output, creatinine - trend LFTs - f/u sputum culture - antibiotics per ID - taper Fio2 to keep SpO2 >90% - daily sedation vacations to assess mental status - spontaneous breathing trials as tolerated - enteral feeds - DVT/GI prophylaxis - ICU monitoring critical care time spent in reviewing chart, evaluating patient and formulating plan 35 min [place] ACNP [id number]
--- NOTE | 2019-01-27 08:33 | PN ---
Progress Note, Physician Chief Complaint: extubated today. on high flow History of Present Illness: Patient is a 58 year old male with a significant past medical history of diastolic CHF, aortic aneurysm (w/mild dilation), FABRICIO, HTN, nonobstructive CAD ( multiple caths done at other tertiary care centers), past hx lithotripsy for left nephrolithiasis, active smoker. He presents to [facility] ED for acute respiratory failure. Patient was intubated in the field after he experienced three days of respiratory difficulty. EMS brought him in while intubated, sedated after he was in acute respiratory failure with no audible lung sounds. On arrival he was also noted to have hypertensive emergency 238/185, tachycardic 130s and hypothermic (96.1f). His ABGs show acute respiratory hypercapneic failure. - Current Medication List Current Medications: Active Medications Acetaminophen (Ofirmev Injection -) 1,000 mg IVPB Q6H PRN PRN Reason: FEVER Last Admin: 01/26/19 03:54 Dose: 1,000 mg Aspirin (Ecotrin -) 81 mg PO DAILY [facility] Last Admin: 01/26/19 11:19 Dose: 81 mg Chlorhexidine Gluconate (Hibiclens For Decolonization -) 1 applic TP HS [facility] Last Admin: 01/26/19 21:02 Dose: 1 applic Furosemide (Lasix Injection -) 40 mg IVPUSH DAILY [facility] Heparin Sodium (Porcine) (Heparin -) 5,000 unit SQ TID [facility] Last Admin: 01/27/19 05:54 Dose: 5,000 unit Propofol (Diprivan -) 1,000,000 mcg in 100 mls @ 5.987 mls/hr IVPB TITR [facility]; Protocol Last Titration: 01/26/19 15:10 Dose: 50 mcg/kg/min, 29.937 mls/hr Nicardipine HCl 25 mg/ (Dextrose) 250 mls @ 25 mls/hr IVPB TITR [facility]; Protocol Last Admin: 01/27/19 04:55 Dose: Not Given Fentanyl 500 mcg/ Dextrose 100 mls @ 4 mls/hr IVPB TITR [facility]; Protocol Last Admin: 01/26/19 19:40 Dose: 125 mcg/hr, 25 mls/hr Azithromycin (Zithromax 500mg Ivpb (Pre-Docked)) 500 mg in 250 mls @ 250 mls/ hr IVPB DAILY [facility] Last Admin: 01/26/19 10:50 Dose: 250 mls/hr Sodium Chloride (Normal Saline -) 1,000 mls @ 75 mls/hr IV ASDIR [facility] Last Admin: 01/26/19 12:00 Dose: 75 mls/hr Cefepime HCl 1 gm/ Dextrose 100 mls @ 100 mls/hr IVPB BID [facility]; Protocol Last Admin: 01/26/19 21:03 Dose: 100 mls/hr Labetalol HCl (Normodyne Injection -) 10 mg IVPUSH Q4H PRN PRN Reason: HYPERTENSION Midazolam HCl (Versed -) 2 mg IVPUSH Q1H PRN PRN Reason: AGITATION Mupirocin (Bactroban Ointment (For Decolonization) -) 1 applic NS BID [facility] Stop: 01/28/19 21:59 Last Admin: 01/26/19 21:00 Dose: 1 applic - Objective Vital Signs: Vital Signs Temperature 98.6 F 01/27/19 04:00 Pulse Rate 91 H 01/27/19 08:29 Respiratory Rate 15 01/27/19 08:29 Blood Pressure 109/89 01/27/19 08:00 O2 Sat by Pulse Oximetry (%) 97 01/27/19 08:29 Constitutional: Yes: Other (lethargic) Eyes: Yes: WNL HENT: Yes: Atraumatic Neck: Yes: WNL, Supple Cardiovascular: Yes: Pulse Irregular Respiratory: Yes: Accessory Muscle Use Gastrointestinal: Yes: Normal Bowel Sounds, Soft ...Rectal Exam: Yes: Deferred Labs: CBC, BMP 01/27/19 05:25 01/27/19 05:25 INR, PTT INR 1.18 (0.83-1.09) H 01/23/19 10:30 Problem List - Problems (1) Severe sepsis Assessment/Plan: persistent fevers, tachycardia, low bp, tachypnea, meghan sepsis likely secondary to pneumonia vs other source blood cultures/urine cultures preliminary with no growth. chest xray worsening congestion, patient extubated today, now on high flow oxygen. lactic acidosis initially, but resolved with ivf ID consulted and following. fever curve has improved. patient on cefadime and azithromycin. Code(s): A41.9 - SEPSIS, UNSPECIFIED ORGANISM; R65.20 - SEVERE SEPSIS WITHOUT SEPTIC SHOCK (2) Acute respiratory failure with hypoxia and hypercapnia Assessment/Plan: extubated today Care per ICU team maintain oxygen saturations above 90% on high flow oxygen Code(s): J96.01 - ACUTE RESPIRATORY FAILURE WITH HYPOXIA; J96.02 - ACUTE RESPIRATORY FAILURE WITH HYPERCAPNIA (3) Acute pulmonary edema Assessment/Plan: on IV lasix 40mg bid daily weights, monitor intake and output strict intake and output Code(s): J81.0 - ACUTE PULMONARY EDEMA (4) Acute on chronic renal failure Assessment/Plan: monitor with labs, likely secondary to sepsis if uptrending, consult nephrology Code(s): N17.9 - ACUTE KIDNEY FAILURE, UNSPECIFIED; N18.9 - CHRONIC KIDNEY DISEASE, UNSPECIFIED (5) [id number] renal failure Assessment/Plan: creatinine improving from admission. monitor with daily labs Code(s): N17.9 - ACUTE KIDNEY FAILURE, UNSPECIFIED; N18.9 - CHRONIC KIDNEY DISEASE, UNSPECIFIED (6) Lactic acidosis Assessment/Plan: elevated on admission, resolved with repeat labs Code(s): E87.2 - ACIDOSIS (7) Hypertensive emergency Assessment/Plan: admitted with hypertensive urgency. s/p nicardipine drip. on coreq bid for p.afib/rate control. BP monitoring per ICU protocol cardiology consulted and following. Code(s): I16.1 - HYPERTENSIVE EMERGENCY (8) Elevated liver enzymes Assessment/Plan: monitor ast/alt, likely elevated in the setting of volume overload improving on today's labs Code(s): R74.8 - ABNORMAL LEVELS OF OTHER SERUM ENZYMES (9) Paroxysmal A-fib Assessment/Plan: on BB and eliquis per cardiology. Code(s): I48.0 - PAROXYSMAL ATRIAL FIBRILLATION (10) Prophylactic measure Assessment/Plan: fen no ivf 2/2 to pulmonary edema monitor electrolytes npo, started on jevity feeds on eliquis 5 bid full code Code(s): Z29.9 - ENCOUNTER FOR PROPHYLACTIC MEASURES, UNSPECIFIED Visit type - Emergency Visit Emergency Visit: Yes ED Registration Date: 01/23/19 Care time: The patient presented to the Emergency Department on the above date and was hospitalized for further evaluation of their emergent condition. - New Patient This patient is new to me today: No - Critical Care Critical Care patient: Yes Total Critical Care Time (in minutes): 45 Critical Care Statement: The care of this patient involved high complexity decision making to prevent further life threatening deterioration of the patient 's condition and/or to evaluate & treat vital organ system(s) failure or risk of failure. - Discharge Referral Referred to [facility] No
[2019-01-27] MEDS ORDERED: CEFEPIME HCL 1 GM VIAL (RESTRICTED TO ID) ONE ×2 (08:41→21:05)
[2019-01-27] MEDS ORDERED: DEXTROSE 5%-WATER 100 ML IVPB ONE ×2 (08:41→21:06)
[2019-01-27] MEDS: FENTANYL INJECTION 500 MCG in DEXTROSE 5%-WATER - 90 ML IVPB SCH (08:55)
[2019-01-27] MEDS: AZITHROMYCIN IVPB 500 MG/250 ML BAG IVPB SCH (09:01)
[2019-01-27] MEDS: CEFEPIME 1 GM in DEXTROSE 5%-WATER 100 ML IVPB SCH ×2 (09:01→21:42)
[2019-01-27] MEDS: ASPIRIN COATED 81 MG TABLET.EC PO SCH (09:02)
[2019-01-27] MEDS: FUROSEMIDE 40 MG/4 ML INJECTABLE VIAL IVPUSH SCH (09:02)
[2019-01-27] MEDS: MUPIROCIN 2% TOPICAL OINTMENT FOR DECOLONIZATION NS SCH ×2 (09:03→21:44)
[2019-01-27] MEDS ORDERED: PROPOFOL 1,000,000 MCG/100 ML VIAL ONE (10:25)
[2019-01-27] MEDS ORDERED: dilTIAZem HCL 50 MG/10 ML - 10 ML VIAL IVPUSH ONE ×2 (11:24→20:06)
--- NOTE | 2019-01-27 11:25 | PN ---
Progress Note, Physician Chief Complaint: Cardiology for Dr. Mills History of Present Illness: 58 yr old -[place] man with h/o systolic/diastolic CHF EF 45% 12/2017 ECHO, sleep apnea, HTN cardiomyopathy, smoker, presented to ED in respiratory failure requiring mechanical ventilation, hypertensive emergency to 240/150, O2 sat 100%. IV NTG initially started; after more than an hour of high dosing, pt' s BP began to respond favorably. He was diuresed with and placed on Cardene gtt since d/antonio, extubated to HFO2, developed rapid afib 130s rate-controlled with IV Cardizem. - Current Medication List Current Medications: Active Medications Acetaminophen (Ofirmev Injection -) 1,000 mg IVPB Q6H PRN PRN Reason: FEVER Last Admin: 01/26/19 03:54 Dose: 1,000 mg Aspirin (Ecotrin -) 81 mg PO DAILY [facility] Last Admin: 01/27/19 09:02 Dose: 81 mg Chlorhexidine Gluconate (Hibiclens For Decolonization -) 1 applic TP HS [facility] Last Admin: 01/26/19 21:02 Dose: 1 applic Diltiazem HCl (Cardizem Injection -) 20 mg IVPUSH ONCE ONE Stop: 01/27/19 11:25 Furosemide (Lasix Injection -) 40 mg IVPUSH DAILY [facility] Last Admin: 01/27/19 09:02 Dose: 40 mg Heparin Sodium (Porcine) (Heparin -) 5,000 unit SQ TID [facility] Last Admin: 01/27/19 05:54 Dose: 5,000 unit Propofol (Diprivan -) 1,000,000 mcg in 100 mls @ 5.987 mls/hr IVPB TITR [facility]; Protocol Last Titration: 01/26/19 15:10 Dose: 50 mcg/kg/min, 29.937 mls/hr Fentanyl 500 mcg/ Dextrose 100 mls @ 4 mls/hr IVPB TITR [facility]; Protocol Last Admin: 01/27/19 08:55 Dose: 125 mcg/hr, 25 mls/hr Azithromycin (Zithromax 500mg Ivpb (Pre-Docked)) 500 mg in 250 mls @ 250 mls/ hr IVPB DAILY [facility] Last Admin: 01/27/19 09:01 Dose: 250 mls/hr Sodium Chloride (Normal Saline -) 1,000 mls @ 75 mls/hr IV ASDIR [facility] Last Admin: 01/26/19 12:00 Dose: 75 mls/hr Cefepime HCl 1 gm/ Dextrose 100 mls @ 100 mls/hr IVPB BID [facility]; Protocol Last Admin: 01/27/19 09:01 Dose: 100 mls/hr Labetalol HCl (Normodyne Injection -) 10 mg IVPUSH Q4H PRN PRN Reason: HYPERTENSION Midazolam HCl (Versed -) 2 mg IVPUSH Q1H PRN PRN Reason: AGITATION Mupirocin (Bactroban Ointment (For Decolonization) -) 1 applic NS BID [facility] Stop: 01/28/19 21:59 Last Admin: 01/27/19 09:03 Dose: 1 applic - Objective Vital Signs: Vital Signs Temperature 98.6 F 01/27/19 04:00 Pulse Rate 91 H 01/27/19 08:29 Respiratory Rate 15 01/27/19 08:29 Blood Pressure 109/89 01/27/19 08:00 O2 Sat by Pulse Oximetry (%) 97 01/27/19 08:29 Constitutional: Yes: No Distress, Calm Neck: Yes: Supple Cardiovascular: Yes: Tachycardia, Pulse Irregular Respiratory: Yes: Regular, Diminished, Other (HFO2) Gastrointestinal: Yes: Soft, Hypoactive Bowel Sounds Edema: No Labs: CBC, BMP 01/27/19 05:25 01/27/19 05:25 INR, PTT INR 1.18 (0.83-1.09) H 01/23/19 10:30 - ....Imaging Chest X-ray: Report Reviewed (Improved congestion, pleural effusions) EKG: Report Reviewed (Rapid afib @ 124 LVH with repol abnl) Assessment/Plan 01/24/2019 Echo: Mod severe conc LVH, abnl LV compliance, low normal LVEF, normal RV fxn, mild TR, borderline LAE - Problems (1) Acute on chronic systolic and diastolic heart failure, NYHA class 1 Assessment/Plan: IV diuresis with monitor diuretic response, renal fxn and electrolytes CXR: improving congestion, since extubated, wean FIO2 as tolerated Code(s): I50.43 - ACUTE ON CHRONIC COMBINED SYSTOLIC AND DIASTOLIC HRT FAIL (2) Acute on chronic renal failure Code(s): N17.9 - ACUTE KIDNEY FAILURE, UNSPECIFIED; N18.9 - CHRONIC KIDNEY DISEASE, UNSPECIFIED Due to above, resume lisinopril once renal fxn stabilizes (3) Acute respiratory failure with hypoxia and hypercapnia Code(s): J96.01 - ACUTE RESPIRATORY FAILURE WITH HYPOXIA; J96.02 - ACUTE RESPIRATORY FAILURE WITH HYPERCAPNIA (4) Elevated liver enzymes Code(s): R74.8 - ABNORMAL LEVELS OF OTHER SERUM ENZYMES Hepatic congestion, LFTs downtrending (5) Hypertensive emergency Code(s): I16.1 - HYPERTENSIVE EMERGENCY (6) Elevated troponin Assessment/Plan: Subendocardial ischemia->remains chronically elevated (0.3), without significant change from previous admission in the past several years. F/u prior cardiac studies. Would consider coronary artery evaluation once stable. Continue Lipitor 10 qd Code(s): R74.8 - ABNORMAL LEVELS OF OTHER SERUM ENZYMES (7) Paroxysmal afib with RVR I48.0 Resume carvedilol 3.125 bid with uptitration as tolerated, change ASA and sc heparin to Eliquis 5 bid (8) Possible PNA Empiric abx per C&S
[2019-01-27] MEDS: PROPOFOL 1,000,000 MCG/100 ML VIAL IVPB SCH (11:45)
[2019-01-27] MEDS: CARVEDILOL 3.125 MG TABLET (FP) PO SCH ×2 (13:23→21:41)
--- NOTE | 2019-01-27 13:30 | PN ---
Progress Note, Physician History of Present Illness: patient extubated now on high flow - Current Medication List Current Medications: Active Medications Acetaminophen (Ofirmev Injection -) 1,000 mg IVPB Q6H PRN PRN Reason: FEVER Last Admin: 01/26/19 03:54 Dose: 1,000 mg Apixaban (Eliquis -) 5 mg PO BID [facility] Atorvastatin Calcium (Lipitor -) 10 mg PO HS [facility] Carvedilol (Coreg -) 3.125 mg PO BID [facility] Chlorhexidine Gluconate (Hibiclens For Decolonization -) 1 applic TP HS [facility] Last Admin: 01/26/19 21:02 Dose: 1 applic Furosemide (Lasix Injection -) 40 mg IVPUSH DAILY [facility] Last Admin: 01/27/19 09:02 Dose: 40 mg Propofol (Diprivan -) 1,000,000 mcg in 100 mls @ 5.987 mls/hr IVPB TITR [facility]; Protocol Last Titration: 01/26/19 15:10 Dose: 50 mcg/kg/min, 29.937 mls/hr Fentanyl 500 mcg/ Dextrose 100 mls @ 4 mls/hr IVPB TITR [facility]; Protocol Last Admin: 01/27/19 08:55 Dose: 125 mcg/hr, 25 mls/hr Azithromycin (Zithromax 500mg Ivpb (Pre-Docked)) 500 mg in 250 mls @ 250 mls/ hr IVPB DAILY [facility] Last Admin: 01/27/19 09:01 Dose: 250 mls/hr Sodium Chloride (Normal Saline -) 1,000 mls @ 75 mls/hr IV ASDIR [facility] Last Admin: 01/26/19 12:00 Dose: 75 mls/hr Cefepime HCl 1 gm/ Dextrose 100 mls @ 100 mls/hr IVPB BID [facility]; Protocol Last Admin: 01/27/19 09:01 Dose: 100 mls/hr Labetalol HCl (Normodyne Injection -) 10 mg IVPUSH Q4H PRN PRN Reason: HYPERTENSION Midazolam HCl (Versed -) 2 mg IVPUSH Q1H PRN PRN Reason: AGITATION Last Admin: 01/27/19 11:00 Dose: 2 mg Mupirocin (Bactroban Ointment (For Decolonization) -) 1 applic NS BID [facility] Stop: 01/28/19 21:59 Last Admin: 01/27/19 09:03 Dose: 1 applic - Objective Vital Signs: Vital Signs Temperature 97.7 F 01/27/19 10:00 Pulse Rate 101 H 01/27/19 12:19 Respiratory Rate 17 01/27/19 12:00 Blood Pressure 115/83 01/27/19 12:00 O2 Sat by Pulse Oximetry (%) 96 01/27/19 12:19 Constitutional: Yes: Calm, Other Cardiovascular: Yes: Regular Rate and Rhythm, Tachycardia Respiratory: Yes: Regular, Other (high flow nasal canula) Gastrointestinal: Yes: Normal Bowel Sounds, Soft Musculoskeletal: Yes: WNL Extremities: Yes: Other Neurological: Yes: Alert, Confusion, Other Labs: CBC, BMP 01/27/19 05:25 01/27/19 05:25 INR, PTT INR 1.18 (0.83-1.09) H 01/23/19 10:30 Assessment/Plan - Problems (1) Acute on chronic systolic and diastolic heart failure, NYHA class 1 Code(s): I50.43 - ACUTE ON CHRONIC COMBINED SYSTOLIC AND DIASTOLIC HRT FAIL (2) Acute on chronic renal failure Code(s): N17.9 - ACUTE KIDNEY FAILURE, UNSPECIFIED; N18.9 - CHRONIC KIDNEY DISEASE, UNSPECIFIED Due to above, resume lisinopril once renal fxn stabilizes (3) Acute respiratory failure with hypoxia and hypercapnia Code(s): J96.01 - ACUTE RESPIRATORY FAILURE WITH HYPOXIA; J96.02 - ACUTE RESPIRATORY FAILURE WITH HYPERCAPNIA (4) Elevated liver enzymes Code(s): R74.8 - ABNORMAL LEVELS OF OTHER SERUM ENZYMES Hepatic congestion, LFTs downtrending (5) Hypertensive emergency Code(s): I16.1 - HYPERTENSIVE EMERGENCY (6) Elevated troponin Code(s): R74.8 - ABNORMAL LEVELS OF OTHER SERUM ENZYMES (7) Paroxysmal afib with RVR I48.0 (8) PNA plan continue abx organisms noted sensitivities noted close monitoring rest as per icu and the team cc 40 min
--- NOTE | 2019-01-27 15:17 | EKG ---
Test Reason : Blood Pressure : / mmHG Vent. Rate : 124 BPM Atrial Rate : 122 BPM P-R Int : 000 ms QRS Dur : 096 ms QT Int : 290 ms P-R-T Axes : 000 048 209 degrees QTc Int : 416 ms ATRIAL FIBRILLATION WITH RAPID VENTRICULAR RESPONSE VOLTAGE CRITERIA FOR LEFT VENTRICULAR HYPERTROPHY MARKED ST ABNORMALITY, POSSIBLE ANTERIOR SUBENDOCARDIAL INJURY ABNORMAL ECG WHEN COMPARED WITH ECG OF 24-JAN-2019 23:17, ATRIAL FIBRILLATION HAS REPLACED SINUS RHYTHM ST NOW DEPRESSED IN ANTERIOR LEADS Confirmed by MD Martínez, Bruno ([id number]) on 01/27/2019 3:16:37 PM Referred By: Confirmed By:Bruno Soliz MD
[2019-01-27] MEDS: LABETALOL HCL 5 MG/1 ML (100MG/20 ML VIAL) IVPUSH PRN (16:35)
[2019-01-27] MEDS ORDERED: MORPHINE SULFATE 2 MG/ML VIAL IVPUSH ONE (20:56)
[2019-01-27] MEDS: QUEtiapine FUMARATE 50 MG TABLET PO SCH (21:41)
[2019-01-27] MEDS: ATORVASTATIN CA 10 MG TABLET (FP) PO SCH (21:41)
[2019-01-27] MEDS: APIXABAN 5 MG TABLET PO SCH (21:42)
[2019-01-27] MEDS: CHLORHEXIDINE GLUCONATE 4% CLEANSER FOR DECOLONIZATION TP SCH (21:43)
[2019-01-27] MEDS: SODIUM CHLORIDE 1,000 ML IV SCH (21:43)
[2019-01-27] MEDS ORDERED: LORazepam 2 MG/ML SDV VIAL ONE (22:21)
[2019-01-27] MEDS: LORazepam 2 MG/ML SDV VIAL IVPUSH PRN (22:50)
[2019-01-28] MEDS: LORazepam 2 MG/ML SDV VIAL IVPUSH PRN ×5 (01:34→19:48)
[2019-01-28] MEDS: LABETALOL HCL 5 MG/1 ML (100MG/20 ML VIAL) IVPUSH PRN (04:24)
[2019-01-28 06:33] LABS: BASO % 0.2 % (0-2.0); EOS % 1.8 % (0-4.5); HEMOGLOBIN 8.4 GM/dL (11.7-16.9); LYMPH % 9.9 % (8-40); MCH 27.3 pg (25.7-33.7); MCHC 32.5 g/dl (32.0-35.9); MEAN PLT VOLUME 7.8 fl (7.5-11.1); MONO % 9.1 % (3.8-10.2); PLATELET COUNT 168 K/MM3 (134-434); RBC 3.09 M/mm3 (4.00-5.60); RDW 14.6 % (11.9-15.9); WHITE BLOOD COUNT 7.9 K/mm3 (4.0-10.0)
[2019-01-28 07:05] LABS: ALBUMIN 2.5 g/dl (3.4-5.0); BILIRUBIN,TOTAL 1.7 mg/dL (0.2-1); BLOOD UREA NITROGEN 40.1 mg/dL (7-18); CALCIUM 8.3 mg/dL (8.5-10.1); CREATININE 1.5 mg/dL (0.55-1.3); MAGNESIUM 2.2 mg/dL (1.8-2.4); POTASSIUM 3.2 mmol/L (3.5-5.1); TOT PROT 6.6 g/dl (6.4-8.2)
--- NOTE | 2019-01-28 07:19 | PN ---
Progress Note (short form) - Note Progress Note: Pulm/CCM Seen and examined in [facility] SUBJECTIVE: -extubated -afib RVR, Cards started eliquis and carvedilol -agaitated delerium overnight, slight improved with seroquel and ativan, ? withdrawal OBJECTIVE: Vital Signs Temp 98.7 F 01/27/19 18:00 Pulse 83 01/28/19 06:00 Resp 17 01/28/19 06:00 BP 160/104 H 01/28/19 06:00 Pulse Ox 100 01/27/19 21:00 Intake & Output 01/27/19 01/27/19 01/28/19 11:59 23:59 11:59 Intake Total 2180 1618 Output Total 350 1200 1400 Balance 1830 418 -1400 Weight 95.368 kg 94.376 kg Intake: IV 576 1088 DIPRIVAN - 1,000,000 mcg 308 138 In 100 ml @ 10 MCG/KG/MIN 5.987 mls/hr IVPB TITR [facility] Rx#:[id number] Normal Saline - 1,000 ml 825 @ 75 mls/hr IV ASDIR [facility] Rx#:[id number] Sublimaze Injection - 500 268 125 Mcg In D5w - 90 ml @ 20 MCG/HR 4 mls/hr IVPB TITR [facility] Rx#:[id number] IVPB 944 350 Tube Feeding 360 105 Tube Irrigant 300 75 Output: Urine 350 1200 1400 Rubio 350 1200 1400 Other: Voiding Method Indwelling Catheter Indwelling Catheter Bowel Movement No No No Weight Measurement Method [facility] Active Medications Acetaminophen (Ofirmev Injection -) 1,000 mg IVPB Q6H PRN PRN Reason: FEVER Last Admin: 01/26/19 03:54 Dose: 1,000 mg Apixaban (Eliquis -) 5 mg PO BID [facility] Last Admin: 01/27/19 21:42 Dose: 5 mg Atorvastatin Calcium (Lipitor -) 10 mg PO [facility] Last Admin: 01/27/19 21:41 Dose: 10 mg Carvedilol (Coreg -) 3.125 mg PO BID [facility] Last Admin: 01/27/19 21:41 Dose: 3.125 mg Chlorhexidine Gluconate (Hibiclens For Decolonization -) 1 applic TP [facility] Last Admin: 01/27/19 21:43 Dose: 1 applic Furosemide (Lasix Injection -) 40 mg IVPUSH DAILY [facility] Last Admin: 01/27/19 09:02 Dose: 40 mg Propofol (Diprivan -) 1,000,000 mcg in 100 mls @ 5.987 mls/hr IVPB TITR [facility]; Protocol Last Admin: 01/27/19 11:45 Dose: Not Given Azithromycin (Zithromax 500mg Ivpb (Pre-Docked)) 500 mg in 250 mls @ 250 mls/ hr IVPB DAILY [facility] Last Admin: 01/27/19 09:01 Dose: 250 mls/hr Sodium Chloride (Normal Saline -) 1,000 mls @ 75 mls/hr IV ASDIR [facility] Last Admin: 01/27/19 21:43 Dose: Not Given Cefepime HCl 1 gm/ Dextrose 100 mls @ 100 mls/hr IVPB BID [facility]; Protocol Last Admin: 01/27/19 21:42 Dose: 100 mls/hr Potassium Chloride (Potassium Chloride 10 Meq Premix Ivpb -) 10 meq in 100 mls @ 100 mls/hr IVPB Q60M [facility] Stop: 01/28/19 09:14 Labetalol HCl (Normodyne Injection -) 10 mg IVPUSH Q4H PRN PRN Reason: HYPERTENSION Last Admin: 01/28/19 04:24 Dose: 10 mg Lorazepam (Ativan Injection -) 2 mg IVPUSH Q3H PRN PRN Reason: AGITATION Last Admin: 01/28/19 06:54 Dose: 2 mg Mupirocin (Bactroban Ointment (For Decolonization) -) 1 applic NS BID [facility] Stop: 01/28/19 21:59 Last Admin: 01/27/19 21:44 Dose: 1 applic Quetiapine Fumarate (Seroquel -) 50 mg PO HS [facility] Last Admin: 01/27/19 21:41 Dose: 50 mg HEENT: PERRL, NCAT Heart: RRR Lung: scattered rhonchi Abd: soft, nontender, + BS Ext: no edema Neuro: follows simple commands, agitated delerium CBC, BMP 01/28/19 05:50 01/28/19 05:55 ASSESSMENT AND PLAN: Acute Hypoxic and Hypercapneic Respiratory Failure Acute on Chronic Systolic Heart Failure Acute Pulmonary Edema Hypertensive Urgency Pneumonia Sepsis Lactic Acidosis Elevated LFTs FABRICIO Smoke - remains off vent- taper Fio2 to keep SpO2 >90% - even fluid balance - eliquis started - BB and CCB as per Cards - monitor urine output, creatinine, downtrending nicely - antibiotics per ID - fio2 as needed - will attempt diet, but not really directable, can start TF - DVT/GI prophylaxis - ICU, tentative resp status and agitated delerium critical care time spent in reviewing chart, evaluating patient and formulating plan 35 min Grisel ACNP [id number]
[2019-01-28] MEDS ORDERED: DEXTROSE 5%-WATER 100 ML IVPB ONE (08:38)
[2019-01-28] MEDS ORDERED: CEFEPIME HCL 1 GM VIAL (RESTRICTED TO ID) ONE (08:38)
[2019-01-28] MEDS: KCL 10 MEQ IVPB 10 MEQ/100 ML INFUS.BAG IVPB SCH ×2 (08:50→10:21)
--- NOTE | 2019-01-28 08:58 | PN ---
Progress Note, Physician Chief Complaint: agitated, very restless. History of Present Illness: Patient is a 58 year old male with a significant past medical history of diastolic CHF, aortic aneurysm (w/mild dilation), FABRICIO, HTN, nonobstructive CAD ( multiple caths done at other tertiary care centers), past hx lithotripsy for left nephrolithiasis, active smoker. He presents to [facility] ED for acute respiratory failure. Patient was intubated in the field after he experienced three days of respiratory difficulty. EMS brought him in while intubated, sedated after he was in acute respiratory failure with no audible lung sounds. On arrival he was also noted to have hypertensive emergency 238/185, tachycardic 130s and hypothermic (96.1f). His ABGs show acute respiratory hypercapneic failure. - Current Medication List Current Medications: Active Medications Acetaminophen (Ofirmev Injection -) 1,000 mg IVPB Q6H PRN PRN Reason: FEVER Last Admin: 01/26/19 03:54 Dose: 1,000 mg Apixaban (Eliquis -) 5 mg PO BID [facility] Last Admin: 01/27/19 21:42 Dose: 5 mg Atorvastatin Calcium (Lipitor -) 10 mg PO HS [facility] Last Admin: 01/27/19 21:41 Dose: 10 mg Carvedilol (Coreg -) 3.125 mg PO BID [facility] Last Admin: 01/27/19 21:41 Dose: 3.125 mg Chlorhexidine Gluconate (Hibiclens For Decolonization -) 1 applic TP HS [facility] Last Admin: 01/27/19 21:43 Dose: 1 applic Furosemide (Lasix Injection -) 40 mg IVPUSH DAILY [facility] Last Admin: 01/27/19 09:02 Dose: 40 mg Azithromycin (Zithromax 500mg Ivpb (Pre-Docked)) 500 mg in 250 mls @ 250 mls/ hr IVPB DAILY [facility] Last Admin: 01/27/19 09:01 Dose: 250 mls/hr Cefepime HCl 1 gm/ Dextrose 100 mls @ 100 mls/hr IVPB BID [facility]; Protocol Last Admin: 01/27/19 21:42 Dose: 100 mls/hr Potassium Chloride (Potassium Chloride 10 Meq Premix Ivpb -) 10 meq in 100 mls @ 100 mls/hr IVPB Q60M [facility] Stop: 01/28/19 10:14 Last Admin: 01/28/19 08:50 Dose: 100 mls/hr Labetalol HCl (Normodyne Injection -) 10 mg IVPUSH Q4H PRN PRN Reason: HYPERTENSION Last Admin: 01/28/19 04:24 Dose: 10 mg Lorazepam (Ativan Injection -) 2 mg IVPUSH Q3H PRN PRN Reason: AGITATION Last Admin: 01/28/19 06:54 Dose: 2 mg Mupirocin (Bactroban Ointment (For Decolonization) -) 1 applic NS BID [facility] Stop: 01/28/19 21:59 Last Admin: 01/27/19 21:44 Dose: 1 applic Quetiapine Fumarate (Seroquel -) 50 mg PO HS [facility] Last Admin: 01/27/19 21:41 Dose: 50 mg - Objective Vital Signs: Vital Signs Temperature 98.4 F 01/28/19 08:00 Pulse Rate 102 H 01/28/19 08:14 Respiratory Rate 22 H 01/28/19 08:00 Blood Pressure 177/125 H 01/28/19 08:00 O2 Sat by Pulse Oximetry (%) 97 01/28/19 08:14 Constitutional: Yes: Anxious, Mild Distress Eyes: Yes: WNL, Conjunctiva Clear HENT: Yes: Atraumatic Neck: Yes: Supple Cardiovascular: Yes: Pulse Irregular Respiratory: Yes: Accessory Muscle Use, Diminished, SOB on Exertion, Tachypnea Gastrointestinal: Yes: Normal Bowel Sounds Musculoskeletal: Yes: WNL Edema: No Peripheral Pulses WNL: No Integumentary: Yes: WNL Neurological: Yes: Confusion, Weakness Psychiatric: Yes: Agitated Labs: CBC, BMP 01/28/19 05:50 01/28/19 05:55 INR, PTT INR 1.18 (0.83-1.09) H 01/23/19 10:30 Problem List - Problems (1) Acute metabolic encephalopathy Assessment/Plan: restless, agitated, delirious. for head ct now. Code(s): G93.41 - METABOLIC ENCEPHALOPATHY (2) Acute respiratory failure with hypoxia and hypercapnia Assessment/Plan: on high flow oxygen, extubated 01/27/2019 Code(s): J96.01 - ACUTE RESPIRATORY FAILURE WITH HYPOXIA; J96.02 - ACUTE RESPIRATORY FAILURE WITH HYPERCAPNIA (3) Severe sepsis Assessment/Plan: no fevers x 48 hours on cefepime, azithromycin blood cultures/negative to date ID following Code(s): A41.9 - SEPSIS, UNSPECIFIED ORGANISM; R65.20 - SEVERE SEPSIS WITHOUT SEPTIC SHOCK (4) Acute pulmonary edema Assessment/Plan: on lasix daily weights Code(s): J81.0 - ACUTE PULMONARY EDEMA (5) Acute on chronic renal failure Assessment/Plan: meghan improving Code(s): N17.9 - ACUTE KIDNEY FAILURE, UNSPECIFIED; N18.9 - CHRONIC KIDNEY DISEASE, UNSPECIFIED (6) [id number] renal failure Assessment/Plan: creatinine 1.5, improving Code(s): N17.9 - ACUTE KIDNEY FAILURE, UNSPECIFIED; N18.9 - CHRONIC KIDNEY DISEASE, UNSPECIFIED (7) Lactic acidosis Assessment/Plan: elevated on admission, resolved with repeat labs Code(s): E87.2 - ACIDOSIS (8) Hypertensive emergency Assessment/Plan: admitted with hypertensive urgency. s/p nicardipine drip. on coreq bid for p.afib/rate control. BP monitoring per ICU protocol cardiology consulted and following. Code(s): I16.1 - HYPERTENSIVE EMERGENCY (9) Elevated liver enzymes Assessment/Plan: monitor ast/alt, likely elevated in the setting of volume overload improving Code(s): R74.8 - ABNORMAL LEVELS OF OTHER SERUM ENZYMES (10) Paroxysmal A-fib Assessment/Plan: on BB and eliquis per cardiology. Code(s): I48.0 - PAROXYSMAL ATRIAL FIBRILLATION (11) Prophylactic measure Assessment/Plan: fen no ivf 2/2 to pulmonary edema monitor electrolytes npo, started on jevity feeds on eliquis 5 bid full code Code(s): Z29.9 - ENCOUNTER FOR PROPHYLACTIC MEASURES, UNSPECIFIED Visit type - Emergency Visit Emergency Visit: Yes ED Registration Date: 01/23/19 Care time: The patient presented to the Emergency Department on the above date and was hospitalized for further evaluation of their emergent condition. - New Patient This patient is new to me today: No - Critical Care Critical Care patient: Yes Total Critical Care Time (in minutes): 45 Critical Care Statement: The care of this patient involved high complexity decision making to prevent further life threatening deterioration of the patient 's condition and/or to evaluate & treat vital organ system(s) failure or risk of failure.
[2019-01-28] MEDS: AZITHROMYCIN IVPB 500 MG/250 ML BAG IVPB SCH (09:33)
[2019-01-28] MEDS: CARVEDILOL 3.125 MG TABLET (FP) PO SCH ×2 (09:33→21:50)
[2019-01-28] MEDS: FUROSEMIDE 40 MG/4 ML INJECTABLE VIAL IVPUSH SCH (09:33)
[2019-01-28] MEDS: APIXABAN 5 MG TABLET PO SCH ×2 (09:33→21:50)
[2019-01-28] MEDS: MUPIROCIN 2% TOPICAL OINTMENT FOR DECOLONIZATION NS SCH (10:21)
[2019-01-28] MEDS: CEFEPIME 1 GM in DEXTROSE 5%-WATER 100 ML IVPB SCH (10:21)
--- NOTE | 2019-01-28 13:17 | PN ---
Progress Note, Physician History of Present Illness: patient still very confused ct of the head done - Current Medication List Current Medications: Active Medications Acetaminophen (Ofirmev Injection -) 1,000 mg IVPB Q6H PRN PRN Reason: FEVER Last Admin: 01/26/19 03:54 Dose: 1,000 mg Apixaban (Eliquis -) 5 mg PO BID [facility] Last Admin: 01/28/19 09:33 Dose: 5 mg Atorvastatin Calcium (Lipitor -) 10 mg PO HS [facility] Last Admin: 01/27/19 21:41 Dose: 10 mg Carvedilol (Coreg -) 3.125 mg PO BID [facility] Last Admin: 01/28/19 09:33 Dose: 3.125 mg Chlorhexidine Gluconate (Hibiclens For Decolonization -) 1 applic TP [facility] Last Admin: 01/27/19 21:43 Dose: 1 applic Furosemide (Lasix Injection -) 40 mg IVPUSH DAILY [facility] Last Admin: 01/28/19 09:33 Dose: 40 mg Cefepime HCl 1 gm/ Dextrose 100 mls @ 100 mls/hr IVPB BID [facility]; Protocol Last Admin: 01/28/19 10:21 Dose: 100 mls/hr Labetalol HCl (Normodyne Injection -) 10 mg IVPUSH Q4H PRN PRN Reason: HYPERTENSION Last Admin: 01/28/19 04:24 Dose: 10 mg Lorazepam (Ativan Injection -) 2 mg IVPUSH Q3H PRN PRN Reason: AGITATION Last Admin: 01/28/19 10:20 Dose: 2 mg Mupirocin (Bactroban Ointment (For Decolonization) -) 1 applic NS BID [facility] Stop: 01/28/19 21:59 Last Admin: 01/28/19 10:21 Dose: 1 applic Quetiapine Fumarate (Seroquel -) 50 mg PO HS [facility] Last Admin: 01/27/19 21:41 Dose: 50 mg - Objective Vital Signs: Vital Signs Temperature 98.4 F 01/28/19 08:00 Pulse Rate 85 01/28/19 12:03 Respiratory Rate 20 01/28/19 11:11 Blood Pressure 167/114 H 01/28/19 11:11 O2 Sat by Pulse Oximetry (%) 99 01/28/19 12:03 Constitutional: Yes: Calm, Other Cardiovascular: Yes: S1, S2 Respiratory: Yes: Regular, On Nasal O2, Poor Air Entry Gastrointestinal: Yes: Normal Bowel Sounds, Soft Musculoskeletal: Yes: WNL Extremities: Yes: Other Neurological: Yes: Alert, Confusion, Other Psychiatric: Yes: Alert, Other Labs: CBC, BMP 01/28/19 05:50 01/28/19 05:55 INR, PTT INR 1.18 (0.83-1.09) H 01/23/19 10:30 Assessment/Plan - Problems (1) Acute on chronic systolic and diastolic heart failure, NYHA class 1 Code(s): I50.43 - ACUTE ON CHRONIC COMBINED SYSTOLIC AND DIASTOLIC HRT FAIL (2) Acute on chronic renal failure Code(s): N17.9 - ACUTE KIDNEY FAILURE, UNSPECIFIED; N18.9 - CHRONIC KIDNEY DISEASE, UNSPECIFIED Due to above, resume lisinopril once renal fxn stabilizes (3) Acute respiratory failure with hypoxia and hypercapnia Code(s): J96.01 - ACUTE RESPIRATORY FAILURE WITH HYPOXIA; J96.02 - ACUTE RESPIRATORY FAILURE WITH HYPERCAPNIA (4) Elevated liver enzymes Code(s): R74.8 - ABNORMAL LEVELS OF OTHER SERUM ENZYMES Hepatic congestion, LFTs downtrending (5) Hypertensive emergency Code(s): I16.1 - HYPERTENSIVE EMERGENCY (6) Elevated troponin Code(s): R74.8 - ABNORMAL LEVELS OF OTHER SERUM ENZYMES (7) Paroxysmal afib with RVR I48.0 (8) PNA plan continue abx organisms noted will change abx to cefazolin await for results of ct scan of head cc 40 min
[2019-01-28] MEDS ORDERED: QUEtiapine FUMARATE 100 MG TABLET (FP) PO ONE (14:12)
--- NOTE | 2019-01-28 14:37 | PN ---
Progress Note, Physician Chief Complaint: Cardiology for Dr. Mills History of Present Illness: 58 yr old -[place] man with h/o systolic/diastolic CHF EF 45% 12/2017 ECHO, sleep apnea, HTN cardiomyopathy, smoker, presented to ED in respiratory failure requiring mechanical ventilation, hypertensive emergency to 240/150, O2 sat 100%. IV NTG initially started; after more than an hour of high dosing, pt' s BP began to respond favorably. He was diuresed with and placed on Cardene gtt since d/antonio, extubated to HFO2, developed rapid afib 130s rate-controlled with IV Cardizem, converted to SR, resumed carvedilol and Eliquis. This AM, agitated and confused requiring marifer, HCT negative, BP elevated, remains in NSR. - Current Medication List Current Medications: Active Medications Acetaminophen (Ofirmev Injection -) 1,000 mg IVPB Q6H PRN PRN Reason: FEVER Last Admin: 01/26/19 03:54 Dose: 1,000 mg Apixaban (Eliquis -) 5 mg PO BID [facility] Last Admin: 01/28/19 09:33 Dose: 5 mg Atorvastatin Calcium (Lipitor -) 10 mg PO HS [facility] Last Admin: 01/27/19 21:41 Dose: 10 mg Carvedilol (Coreg -) 3.125 mg PO BID [facility] Last Admin: 01/28/19 09:33 Dose: 3.125 mg Chlorhexidine Gluconate (Hibiclens For Decolonization -) 1 applic TP HS [facility] Last Admin: 01/27/19 21:43 Dose: 1 applic Furosemide (Lasix Injection -) 40 mg IVPUSH DAILY [facility] Last Admin: 01/28/19 09:33 Dose: 40 mg Cefazolin Sodium 1 gm/ (Dextrose) 50 mls @ 100 mls/hr IVPB Q8H-IV [facility] Labetalol HCl (Normodyne Injection -) 10 mg IVPUSH Q4H PRN PRN Reason: HYPERTENSION Last Admin: 01/28/19 04:24 Dose: 10 mg Lorazepam (Ativan Injection -) 2 mg IVPUSH Q3H PRN PRN Reason: AGITATION Last Admin: 01/28/19 13:27 Dose: 2 mg Mupirocin (Bactroban Ointment (For Decolonization) -) 1 applic NS BID [facility] Stop: 01/28/19 21:59 Last Admin: 01/28/19 10:21 Dose: 1 applic Nifedipine (Procardia Xl -) 90 mg PO DAILY [facility] Quetiapine Fumarate (Seroquel -) 50 mg PO HS [facility] Last Admin: 01/27/19 21:41 Dose: 50 mg - Objective Vital Signs: Vital Signs Temperature 98.1 F 01/28/19 14:00 Pulse Rate 93 H 01/28/19 14:00 Respiratory Rate 21 H 01/28/19 14:00 Blood Pressure 166/118 H 01/28/19 14:00 O2 Sat by Pulse Oximetry (%) 99 01/28/19 12:03 Constitutional: Yes: No Distress, Calm Neck: Yes: Supple Cardiovascular: Yes: Regular Rate and Rhythm Respiratory: Yes: Regular, Diminished, On Nasal O2 Gastrointestinal: Yes: Normal Bowel Sounds, Soft Edema: No Labs: CBC, BMP 01/28/19 05:50 01/28/19 05:55 INR, PTT INR 1.18 (0.83-1.09) H 01/23/19 10:30 - ....Imaging Cat Scan: Report Reviewed (HCT: No acute changes) EKG: Report Reviewed (Afib @ 124 LVH with repol abnl Tele: NSR) Assessment/Plan 01/24/2019 Echo: Mod severe conc LVH, abnl LV compliance, low normal LVEF, normal RV fxn, mild TR, borderline LAE - Problems (1) Acute on chronic systolic and diastolic heart failure, NYHA class 1 Assessment/Plan: IV diuresis with monitor diuretic response, renal fxn and electrolytes CXR: improving congestion, since extubated, wean FIO2 as tolerated Code(s): I50.43 - ACUTE ON CHRONIC COMBINED SYSTOLIC AND DIASTOLIC HRT FAIL (2) Acute on chronic renal failure Code(s): N17.9 - ACUTE KIDNEY FAILURE, UNSPECIFIED; N18.9 - CHRONIC KIDNEY DISEASE, UNSPECIFIED Due to above, resume lisinopril once renal fxn stabilizes, resumed on Procardia XL 90 qd, replete K (3) Acute respiratory failure with hypoxia and hypercapnia Code(s): J96.01 - ACUTE RESPIRATORY FAILURE WITH HYPOXIA; J96.02 - ACUTE RESPIRATORY FAILURE WITH HYPERCAPNIA (4) Elevated liver enzymes Code(s): R74.8 - ABNORMAL LEVELS OF OTHER SERUM ENZYMES Hepatic congestion, LFTs downtrending (5) Hypertensive emergency Code(s): I16.1 - HYPERTENSIVE EMERGENCY (6) Elevated troponin Assessment/Plan: Subendocardial ischemia->remains chronically elevated (0.3), without significant change from previous admission in the past several years. F/u prior cardiac studies. Would consider coronary artery evaluation once stable. Continue Lipitor 10 qd Code(s): R74.8 - ABNORMAL LEVELS OF OTHER SERUM ENZYMES (7) Paroxysmal afib with RVR I48.0 Increase carvedilol 6.25 bid with uptitration as tolerated, continue Eliquis 5 bid (8) Possible PNA Empiric abx per C&S
[2019-01-28] MEDS: NIFEdipine E.R. 90 MG TABLET (FP) PO SCH (15:36)
[2019-01-28] MEDS ORDERED: ceFAZolin SODIUM 1 GM VIAL ONE (17:00)
[2019-01-28] MEDS ORDERED: DEXTROSE 5%-WATER - 50 ML IVPB ONE (17:00)
[2019-01-28] MEDS: CEFAZOLIN 1 GM in DEXTROSE 5%-WATER - 50 ML IVPB SCH (17:24)
[2019-01-28] MEDS ORDERED: PT OWN MED DRAWER 7, Y5N ONE (21:49)
[2019-01-28] MEDS: ATORVASTATIN CA 10 MG TABLET (FP) PO SCH (21:50)
[2019-01-28] MEDS: QUEtiapine FUMARATE 50 MG TABLET PO SCH (21:50)
[2019-01-28] MEDS: CHLORHEXIDINE GLUCONATE 4% CLEANSER FOR DECOLONIZATION TP SCH (21:51)
[2019-01-29] MEDS ORDERED: DEXTROSE 5%-WATER - 50 ML IVPB ONE ×3 (01:12→17:10)
[2019-01-29] MEDS ORDERED: ceFAZolin SODIUM 1 GM VIAL ONE ×3 (01:12→17:10)
[2019-01-29] MEDS: LORazepam 2 MG/ML SDV VIAL IVPUSH PRN ×2 (01:15→05:58)
[2019-01-29] MEDS: CEFAZOLIN 1 GM in DEXTROSE 5%-WATER - 50 ML IVPB SCH ×3 (01:15→17:13)
[2019-01-29 06:35] LABS: BASO % 0.2 % (0-2.0); EOS % 1.4 % (0-4.5); HEMATOCRIT 28.9 % (35.4-49); HEMOGLOBIN 9.3 GM/dL (11.7-16.9); LYMPH % 11.3 % (8-40); MCH 27.1 pg (25.7-33.7); MCHC 32.1 g/dl (32.0-35.9); MEAN CELL VOLUME 84.3 fl (80-96); MEAN PLT VOLUME 7.5 fl (7.5-11.1); MONO % 12.5 % (3.8-10.2); NEUT % 74.6 % (42.8-82.8); PLATELET COUNT 213 K/MM3 (134-434); RBC 3.42 M/mm3 (4.00-5.60); WHITE BLOOD COUNT 7.6 K/mm3 (4.0-10.0)
[2019-01-29 06:57] LABS: ALBUMIN 2.8 g/dl (3.4-5.0); BILIRUBIN,TOTAL 2.3 mg/dL (0.2-1); BLOOD UREA NITROGEN 37.6 mg/dL (7-18); CALCIUM 8.8 mg/dL (8.5-10.1); CREATININE 1.3 mg/dL (0.55-1.3); MAGNESIUM 2.4 mg/dL (1.8-2.4); POTASSIUM 3.4 mmol/L (3.5-5.1); TOT PROT 7.2 g/dl (6.4-8.2)
[2019-01-29] MEDS: KCL 10 MEQ IVPB 10 MEQ/100 ML INFUS.BAG IVPB SCH ×2 (08:15→09:27)
[2019-01-29 08:46] LABS: ARTERIAL BLD GAS O2 SATURATION 98.2 % (95-98); ARTERIAL BLOOD GAS BASE EXCESS 4.8 meq/l (-2-2); ARTERIAL BLOOD GAS PCO2 35.8 mmHg (35-45); ARTERIAL BLOOD GAS PO2 97.7 mmHg (80-105)
[2019-01-29 08:48] LABS: ALLENS TEST POSITIVE
[2019-01-29] MEDS ORDERED: morphine CARPU-JECT 2 MG/1 ML DISP.SYRIN IVPUSH PRN (09:11)
--- NOTE | 2019-01-29 09:14 | PN ---
Progress Note, Physician Chief Complaint: able to state his name clearly, remains restless. restraints on wrists applied for safety as he pulls on therapy. says he is having pain on his chest when i touch his chest head ct - unable to tolerate study yesterday troponin pending, ekg now History of Present Illness: Patient is a 58 year old male with a significant past medical history of diastolic CHF, aortic aneurysm (w/mild dilation), FABRICIO, HTN, nonobstructive CAD ( multiple caths done at other tertiary care centers), past hx lithotripsy for left nephrolithiasis, active smoker. He presents to [facility] ED for acute respiratory failure. Patient was intubated in the field after he experienced three days of respiratory difficulty. EMS brought him in while intubated, sedated after he was in acute respiratory failure with no audible lung sounds. On arrival he was also noted to have hypertensive emergency 238/185, tachycardic 130s and hypothermic (96.1f). His ABGs show acute respiratory hypercapneic failure and has been monitored closely in the ICU. - Current Medication List Current Medications: Active Medications Acetaminophen (Ofirmev Injection -) 1,000 mg IVPB Q6H PRN PRN Reason: FEVER Last Admin: 01/26/19 03:54 Dose: 1,000 mg Apixaban (Eliquis -) 5 mg PO BID [facility] Last Admin: 01/28/19 21:50 Dose: 5 mg Atorvastatin Calcium (Lipitor -) 10 mg PO HS [facility] Last Admin: 01/28/19 21:50 Dose: 10 mg Carvedilol (Coreg -) 6.25 mg PO BID [facility] Last Admin: 01/28/19 21:50 Dose: 6.25 mg Chlorhexidine Gluconate (Hibiclens For Decolonization -) 1 applic TP HS [facility] Last Admin: 01/28/19 21:51 Dose: 1 applic Furosemide (Lasix Injection -) 40 mg IVPUSH DAILY [facility] Last Admin: 01/28/19 09:33 Dose: 40 mg Cefazolin Sodium 1 gm/ (Dextrose) 50 mls @ 100 mls/hr IVPB Q8H-[facility] Last Admin: 01/29/19 01:15 Dose: 100 mls/hr Potassium Chloride (Potassium Chloride 10 Meq Premix Ivpb -) 10 meq in 100 mls @ 100 mls/hr IVPB Q60M [facility] Stop: 01/29/19 09:14 Last Admin: 01/29/19 08:15 Dose: 100 mls/hr Labetalol HCl (Normodyne Injection -) 10 mg IVPUSH Q4H PRN PRN Reason: HYPERTENSION Last Admin: 01/28/19 04:24 Dose: 10 mg Lorazepam (Ativan Injection -) 2 mg IVPUSH Q3H PRN PRN Reason: AGITATION Last Admin: 01/29/19 05:58 Dose: 2 mg Morphine Sulfate (Morphine Injection -) 0.5 mg IVPUSH Q4H PRN PRN Reason: PAIN LEVEL 7 - 10 Nifedipine (Procardia Xl -) 90 mg PO DAILY [facility] Last Admin: 01/28/19 15:36 Dose: 90 mg Quetiapine Fumarate (Seroquel -) 50 mg PO HS [facility] Last Admin: 01/28/19 21:50 Dose: 50 mg - Objective Vital Signs: Vital Signs Temperature 97.9 F 01/29/19 06:00 Pulse Rate 80 01/29/19 08:00 Respiratory Rate 18 01/29/19 08:00 Blood Pressure 159/102 H 01/29/19 08:00 O2 Sat by Pulse Oximetry (%) 98 01/28/19 21:50 Constitutional: Yes: Anxious, Moderate Distress Eyes: Yes: Conjunctiva Clear HENT: Yes: Atraumatic Neck: Yes: Supple Cardiovascular: Yes: Pulse Irregular Respiratory: Yes: On Nasal O2 Gastrointestinal: Yes: Soft ...Rectal Exam: Yes: Deferred Extremities: Yes: WNL Edema: No Integumentary: Yes: WNL Neurological: Yes: Confusion, Lethargy, Weakness Labs: CBC, BMP 01/29/19 06:05 01/29/19 06:05 INR, PTT INR 1.18 (0.83-1.09) H 01/23/19 10:30 Problem List - Problems (1) Acute respiratory failure with hypoxia and hypercapnia Assessment/Plan: on high flow oxygen, extubated 01/27/2019 Code(s): J96.01 - ACUTE RESPIRATORY FAILURE WITH HYPOXIA; J96.02 - ACUTE RESPIRATORY FAILURE WITH HYPERCAPNIA (2) Severe sepsis Assessment/Plan: no fevers on cefepime, azithromycin blood cultures/negative to date ID following, recommendations appreciated Code(s): A41.9 - SEPSIS, UNSPECIFIED ORGANISM; R65.20 - SEVERE SEPSIS WITHOUT SEPTIC SHOCK (3) Acute metabolic encephalopathy Assessment/Plan: restless, agitated, delirious. could not tolerate head ct, however no acute findings on reading monitor mental status able to state his name today, answers simple questions acute metabolic enceph secondary to severe sepsis and hypoxia Code(s): G93.41 - METABOLIC ENCEPHALOPATHY (4) Acute pulmonary edema Assessment/Plan: on lasix daily weights Code(s): J81.0 - ACUTE PULMONARY EDEMA (5) Acute on chronic renal failure Assessment/Plan: meghan improving Code(s): N17.9 - ACUTE KIDNEY FAILURE, UNSPECIFIED; N18.9 - CHRONIC KIDNEY DISEASE, UNSPECIFIED (6) [id number] renal failure Assessment/Plan: creatinine improving Code(s): N17.9 - ACUTE KIDNEY FAILURE, UNSPECIFIED; N18.9 - CHRONIC KIDNEY DISEASE, UNSPECIFIED (7) Lactic acidosis Assessment/Plan: elevated on admission, resolved with repeat labs Code(s): E87.2 - ACIDOSIS (8) Hypertensive emergency Assessment/Plan: admitted with hypertensive urgency. s/p nicardipine drip. on coreq bid for p.afib/rate control. BP monitoring per ICU protocol cardiology consulted and following. Code(s): I16.1 - HYPERTENSIVE EMERGENCY (9) Elevated liver enzymes Assessment/Plan: monitor ast/alt, likely elevated in the setting of volume overload improving Code(s): R74.8 - ABNORMAL LEVELS OF OTHER SERUM ENZYMES (10) Paroxysmal A-fib Assessment/Plan: on BB and eliquis per cardiology. Code(s): I48.0 - PAROXYSMAL ATRIAL FIBRILLATION (11) Prophylactic measure Assessment/Plan: fen no ivf 2/2 to pulmonary edema monitor electrolytes npo, started on jevity feeds on eliquis 5 bid full code Code(s): Z29.9 - ENCOUNTER FOR PROPHYLACTIC MEASURES, UNSPECIFIED Visit type - Emergency Visit Emergency Visit: Yes ED Registration Date: 01/23/19 Care time: The patient presented to the Emergency Department on the above date and was hospitalized for further evaluation of their emergent condition. - New Patient This patient is new to me today: No - Critical Care Critical Care patient: Yes Total Critical Care Time (in minutes): 45 Critical Care Statement: The care of this patient involved high complexity decision making to prevent further life threatening deterioration of the patient 's condition and/or to evaluate & treat vital organ system(s) failure or risk of failure.
[2019-01-29] MEDS: FUROSEMIDE 40 MG/4 ML INJECTABLE VIAL IVPUSH SCH (09:28)
[2019-01-29] MEDS: APIXABAN 5 MG TABLET PO SCH (09:28)
[2019-01-29] MEDS ORDERED: MORPHINE SULFATE 2 MG/ML VIAL IVPUSH PRN (09:28)
[2019-01-29] MEDS ORDERED: MORPHINE SULFATE 2 MG/ML VIAL IVPUSH ONE (09:30)
[2019-01-29] MEDS: CARVEDILOL 3.125 MG TABLET (FP) PO SCH ×2 (09:31→21:19)
--- NOTE | 2019-01-29 09:38 | CON.CARD ---
Consult Consult Specialty:: Cardiology - History of Present Illness History of Present Illness: 58 yr old -Portuguese man with h/o systolic/diastolic CHF EF 45% 12/2017 ECHO, sleep apnea, HTN cardiomyopathy, smoker, presented to ED in respiratory failure requiring mechanical ventilation, hypertensive emergency to 240/150, O2 sat 100%. IV NTG initially started; after more than an hour of high dosing, pt' s BP began to respond favorably. He was diuresed with and placed on Cardene gtt since d/antonio, extubated to HFO2, developed rapid afib 130s rate-controlled with IV Cardizem, converted to SR, resumed carvedilol and Eliquis. This AM, agitated and confused requiring marifer, HCT negative, BP elevated, remains in NSR. - Past Medical History Cardio/Vascular: Yes: CAD (non-obstx), CHF (Chronic systolic and diastolic CHF) , HTN, Other (NSVT) Pulmonary: Yes: Sleep Apnea Renal/: Yes: Renal Inusuff, Renal Calculi Psych: Yes: Depression - Alcohol/Substance Use Hx Alcohol Use: No History of Substance Use: reports: Marijuana - Smoking History Smoking history: Unknown if ever smoked Have you smoked in the past 12 months: No Aproximately how many cigarettes per day: 8 - Social History Usual Living Arrangement: With Spouse ADL: Independent Occupation: currently unemployed Home Medications - Allergies Allergies/Adverse Reactions: Allergies Allergy/AdvReac Type Severity Reaction Status Date / Time adhesive tape Allergy Verified 06/14/18 10:29 - Home Medications Home Medications: Ambulatory Orders Duloxetine HCl [Cymbalta -] 60 mg PO DAILY 06/29/16 Aspirin Coated [Ecotrin -] 81 mg PO DAILY #30 tab 01/19/17 Cholecalciferol (Vitamin D3) [Vitamin D3] 50,000 unit PO WEEKLY 09/16/17 Zolpidem Tartrate [Ambien] 10 mg PO PRN PRN 09/16/17 Carvedilol [Coreg -] 25 mg PO BID #60 tablet 01/11/18 Ferrous Sulfate [Iron] 325 mg PO TID 06/15/18 Folic Acid 1 mg PO DAILY 06/15/18 Mirtazapine [Remeron -] 15 mg PO DAILY 06/15/18 Nifedipine ER [Procardia XL -] 90 mg PO DAILY 06/15/18 Potassium Chloride 20 meq PO DAILY 06/15/18 Vitamin B Complex 1 tab PO DAILY 06/15/18 Atorvastatin Ca [Lipitor] 10 mg PO HS 30 Days #30 tablet 06/16/18 Furosemide [Lasix] 40 mg PO DAILY 30 Days #30 tablet 06/16/18 Lisinopril [Prinivil] 40 mg PO DAILY 30 Days #30 tablet 06/16/18 Tamsulosin HCl [Flomax -] 0.4 mg PO DAILY@0830 cap.er.24h 06/16/18 Vital Signs: Vital Signs Temperature 97.9 F 01/29/19 06:00 Pulse Rate 80 01/29/19 08:00 Respiratory Rate 18 01/29/19 08:00 Blood Pressure 159/102 H 01/29/19 08:00 O2 Sat by Pulse Oximetry (%) 98 01/28/19 21:50 Constitutional: Yes: Well Nourished, No Distress, Calm Eyes: Yes: WNL, Conjunctiva Clear, EOM Intact HENT: Yes: WNL, Atraumatic, Normocephalic Neck: Yes: WNL, Supple, Trachea Midline Respiratory: Yes: WNL, Regular, CTA Bilaterally Gastrointestinal: Yes: WNL, Normal Bowel Sounds Renal/: Yes: WNL Cardiovascular: Yes: WNL, Regular Rate and Rhythm Musculoskeletal: Yes: WNL Extremities: Yes: WNL Integumentary: Yes: WNL Neurological: Yes: Lethargy ...Motor Strength: WNL Psychiatric: Yes: WNL, Alert, Oriented - Other Data Labs, Other Data: CBC, BMP 01/29/19 06:05 01/29/19 06:05 INR, PTT INR 1.18 (0.83-1.09) H 01/23/19 10:30 Assessment/Plan Assessment/Plan 01/24/2019 Echo: Mod severe conc LVH, abnl LV compliance, low normal LVEF, normal RV fxn, mild TR, borderline LAE - Problems (1) Acute on chronic systolic and diastolic heart failure, NYHA class 1 Assessment/Plan: IV diuresis with monitor diuretic response, renal fxn and electrolytes CXR: improving congestion, since extubated, wean FIO2 as tolerated Code(s): I50.43 - ACUTE ON CHRONIC COMBINED SYSTOLIC AND DIASTOLIC HRT FAIL (2) Acute on chronic renal failure Code(s): N17.9 - ACUTE KIDNEY FAILURE, UNSPECIFIED; N18.9 - CHRONIC KIDNEY DISEASE, UNSPECIFIED Due to above, resume lisinopril once renal fxn stabilizes, resumed on Procardia XL 90 qd, replete K (3) Acute respiratory failure with hypoxia and hypercapnia Code(s): J96.01 - ACUTE RESPIRATORY FAILURE WITH HYPOXIA; J96.02 - ACUTE RESPIRATORY FAILURE WITH HYPERCAPNIA (4) Elevated liver enzymes Code(s): R74.8 - ABNORMAL LEVELS OF OTHER SERUM ENZYMES Hepatic congestion, LFTs downtrending (5) Hypertensive emergency Code(s): I16.1 - HYPERTENSIVE EMERGENCY (6) Elevated troponin Assessment/Plan: Subendocardial ischemia->remains chronically elevated (0.3), without significant change from previous admission in the past several years. F/u prior cardiac studies. Would consider coronary artery evaluation once stable. Continue Lipitor 10 qd Code(s): R74.8 - ABNORMAL LEVELS OF OTHER SERUM ENZYMES (7) Paroxysmal afib with RVR I48.0 Increase carvedilol 6.25 bid with uptitration as tolerated, continue Eliquis 5 bid (8) Possible PNA Empiric abx per C&S
--- NOTE | 2019-01-29 10:47 | PN ---
Progress Note, Physician History of Present Illness: lethargic confused arousable - Current Medication List Current Medications: Active Medications Acetaminophen (Ofirmev Injection -) 1,000 mg IVPB Q6H PRN PRN Reason: FEVER Last Admin: 01/26/19 03:54 Dose: 1,000 mg Apixaban (Eliquis -) 5 mg PO BID [facility] Last Admin: 01/29/19 09:28 Dose: 5 mg Atorvastatin Calcium (Lipitor -) 10 mg PO HS [facility] Last Admin: 01/28/19 21:50 Dose: 10 mg Carvedilol (Coreg -) 6.25 mg PO BID [facility] Last Admin: 01/29/19 09:31 Dose: 6.25 mg Chlorhexidine Gluconate (Hibiclens For Decolonization -) 1 applic TP HS [facility] Last Admin: 01/28/19 21:51 Dose: 1 applic Furosemide (Lasix Injection -) 40 mg IVPUSH DAILY [facility] Last Admin: 01/29/19 09:28 Dose: 40 mg Cefazolin Sodium 1 gm/ (Dextrose) 50 mls @ 100 mls/hr IVPB Q8H-IV [facility] Last Admin: 01/29/19 09:27 Dose: 100 mls/hr Labetalol HCl (Normodyne Injection -) 10 mg IVPUSH Q4H PRN PRN Reason: HYPERTENSION Last Admin: 01/28/19 04:24 Dose: 10 mg Lorazepam (Ativan Injection -) 2 mg IVPUSH Q3H PRN PRN Reason: AGITATION Last Admin: 01/29/19 05:58 Dose: 2 mg Morphine Sulfate (Morphine Sulfate) 0.5 mg IVPUSH Q4H PRN PRN Reason: PAIN LEVEL 7 - 10 Nifedipine (Procardia Xl -) 90 mg PO DAILY [facility] Last Admin: 01/28/19 15:36 Dose: 90 mg Quetiapine Fumarate (Seroquel -) 50 mg PO HS [facility] Last Admin: 01/28/19 21:50 Dose: 50 mg - Objective Vital Signs: Vital Signs Temperature 97.9 F 01/29/19 06:00 Pulse Rate 80 01/29/19 08:00 Respiratory Rate 18 01/29/19 08:00 Blood Pressure 159/102 H 01/29/19 08:00 O2 Sat by Pulse Oximetry (%) 98 01/28/19 21:50 Constitutional: Yes: Other Cardiovascular: Yes: Regular Rate and Rhythm, Tachycardia Respiratory: Yes: Poor Air Entry, Rhonchi Gastrointestinal: Yes: Normal Bowel Sounds, Soft Musculoskeletal: Yes: WNL Extremities: Yes: WNL Neurological: Yes: Other (delerium,lethargic) Psychiatric: Yes: Other Labs: CBC, BMP 01/29/19 06:05 01/29/19 06:05 INR, PTT INR 1.18 (0.83-1.09) H 01/23/19 10:30 Assessment/Plan - Problems (1) Acute on chronic systolic and diastolic heart failure, NYHA class 1 Code(s): I50.43 - ACUTE ON CHRONIC COMBINED SYSTOLIC AND DIASTOLIC HRT FAIL (2) Acute on chronic renal failure Code(s): N17.9 - ACUTE KIDNEY FAILURE, UNSPECIFIED; N18.9 - CHRONIC KIDNEY DISEASE, UNSPECIFIED Due to above, resume lisinopril once renal fxn stabilizes (3) Acute respiratory failure with hypoxia and hypercapnia Code(s): J96.01 - ACUTE RESPIRATORY FAILURE WITH HYPOXIA; J96.02 - ACUTE RESPIRATORY FAILURE WITH HYPERCAPNIA (4) Elevated liver enzymes Code(s): R74.8 - ABNORMAL LEVELS OF OTHER SERUM ENZYMES Hepatic congestion, LFTs downtrending (5) Hypertensive emergency Code(s): I16.1 - HYPERTENSIVE EMERGENCY (6) Elevated troponin Code(s): R74.8 - ABNORMAL LEVELS OF OTHER SERUM ENZYMES (7) Paroxysmal afib with RVR I48.0 (8) PNA plan continue current mgmt abx await for all reports resp support monitor mental status rest as per icu close watch cc 40 min
--- NOTE | 2019-01-29 11:05 | EKG ---
Test Reason : Blood Pressure : / mmHG Vent. Rate : 091 BPM Atrial Rate : 091 BPM P-R Int : 164 ms QRS Dur : 090 ms QT Int : 418 ms P-R-T Axes : 023 016 103 degrees QTc Int : 514 ms SINUS RHYTHM WITH SINUS ARRHYTHMIA WITH OCCASIONAL PREMATURE VENTRICULAR COMPLEXES POSSIBLE LEFT ATRIAL ENLARGEMENT LEFT VENTRICULAR HYPERTROPHY WITH REPOLARIZATION ABNORMALITY PROLONGED QT ABNORMAL ECG WHEN COMPARED WITH ECG OF 27-JAN-2019 10:49, SINUS RHYTHM HAS REPLACED ATRIAL FIBRILLATION VENT. RATE HAS DECREASED PREMATURE VENTRICULAR COMPLEXES SEEN Confirmed by GEORGE LOMBARDO MD ([id number]) on 01/29/2019 11:04:58 AM Referred By: CAN LINTON Confirmed By:GEORGE LOMBARDO MD
[2019-01-29] MEDS: NIFEdipine E.R. 90 MG TABLET (FP) PO SCH (11:13)
[2019-01-29] MEDS ORDERED: LACTATED RINGERS SOLUTION 1,000 ML/1,000 ML INFUS.BAG IV SCH (11:30)
--- NOTE | 2019-01-29 12:30 | PN ---
Teaching Attending Note Name of Resident: Jose Reeder ATTENDING PHYSICIAN STATEMENT I saw and evaluated the patient. I reviewed the resident's note and discussed the case with the resident. I agree with the resident's findings and plan as documented. SUBJECTIVE: Patient seen and examined in the ICU. Lethargic but arousable. Able to intermittently follow some commands. Unsure of baseline but remains very confused. Intake & Output 01/26/19 01/27/19 01/28/19 01/29/19 23:59 23:59 23:59 23:59 Intake Total 2421 3798 450 50 Output Total 1790 1550 3400 800 Balance 631 2248 -2950 -750 Weight 205 lb 4.8 oz 210 lb 4 oz 208 lb 1 oz 193 lb 6 oz Last Vital Signs Temp Pulse Resp BP Pulse Ox 98.4 F 81 18 143/108 H 98 01/29/19 10:00 01/29/19 10:00 01/29/19 10:00 01/29/19 10:00 01/29/19 10:00 Active Medications Acetaminophen (Ofirmev Injection -) 1,000 mg IVPB Q6H PRN PRN Reason: FEVER Last Admin: 01/26/19 03:54 Dose: 1,000 mg Apixaban (Eliquis -) 5 mg PO BID [facility] Last Admin: 01/29/19 09:28 Dose: 5 mg Atorvastatin Calcium (Lipitor -) 10 mg PO HS [facility] Last Admin: 01/28/19 21:50 Dose: 10 mg Carvedilol (Coreg -) 6.25 mg PO BID [facility] Last Admin: 01/29/19 09:31 Dose: 6.25 mg Chlorhexidine Gluconate (Hibiclens For Decolonization -) 1 applic TP HS [facility] Last Admin: 01/28/19 21:51 Dose: 1 applic Furosemide (Lasix Injection -) 40 mg IVPUSH DAILY [facility] Last Admin: 01/29/19 09:28 Dose: 40 mg Cefazolin Sodium 1 gm/ (Dextrose) 50 mls @ 100 mls/hr IVPB Q8H-IV [facility] Last Admin: 01/29/19 09:27 Dose: 100 mls/hr Lactated Ringer's (Lactated Ringers Solution) 1,000 ml in 1,000 mls @ 100 mls/ hr IV [facility] Labetalol HCl (Normodyne Injection -) 10 mg IVPUSH Q4H PRN PRN Reason: HYPERTENSION Last Admin: 01/28/19 04:24 Dose: 10 mg Lorazepam (Ativan Injection -) 2 mg IVPUSH Q3H PRN PRN Reason: AGITATION Last Admin: 01/29/19 05:58 Dose: 2 mg Morphine Sulfate (Morphine Sulfate) 0.5 mg IVPUSH Q4H PRN PRN Reason: PAIN LEVEL 7 - 10 Nifedipine (Procardia Xl -) 90 mg PO DAILY [facility] Last Admin: 01/29/19 11:13 Dose: Not Given Quetiapine Fumarate (Seroquel -) 50 mg PO HS [facility] Last Admin: 01/28/19 21:50 Dose: 50 mg HEENT: Lethargic but arousable, (-) Pallor (-) Icterus Heart: RRR Lung: scattered rhonchi Abd: soft, nontender, + BS Ext: no edema Neuro: follows simple commands, delerium Laboratory Results - last 24 hr 01/29/19 01/29/19 01/29/19 06:05 06:05 08:35 WBC 7.6 RBC 3.42 L Hgb 9.3 L Hct 28.9 L MCV 84.3 MCH 27.1 MCHC 32.1 RDW 15.0 Plt Count 213 D MPV 7.5 Absolute Neuts (auto) 5.7 Neutrophils % 74.6 Lymphocytes % 11.3 Monocytes % 12.5 H Eosinophils % 1.4 Basophils % 0.2 Nucleated RBC % 0 Anticoagulation Therapy No Result Required. Puncture Site Right radial ABG pH 7.50 H ABG pCO2 at Pt Temp 35.8 ABG pO2 at Pt Temp 97.7 ABG HCO3 27.9 H ABG O2 Sat (Measured) 98.2 H ABG O2 Content 12.4 L ABG Base Excess 4.8 H Jasvir Test Positive O2 Delivery Device No Result Required. Oxygen Flow Rate 3l Vent Mode No Result Required. Vent Rate No Result Required. Mechanical Rate No Result Required. Pressure Support Vent No Result Required. Sodium 150 H Potassium 3.4 L Chloride 113 H Carbon Dioxide 29 Anion Gap 7 L BUN 37.6 H Creatinine 1.3 Est GFR (CKD-EPI)AfAm 69.22 Est GFR (CKD-EPI)NonAf 59.72 Random Glucose 107 H Calcium 8.8 Magnesium 2.4 Total Bilirubin 2.3 H AST 78 H ALT 46 Alkaline Phosphatase 111 Troponin I 19.20 H* Total Protein 7.2 Albumin 2.8 L 01/29/19 11:18 WBC RBC Hgb Hct MCV MCH MCHC RDW Plt Count MPV Absolute Neuts (auto) Neutrophils % Lymphocytes % Monocytes % Eosinophils % Basophils % Nucleated RBC % Anticoagulation Therapy Puncture Site ABG pH ABG pCO2 at Pt Temp ABG pO2 at Pt Temp ABG HCO3 ABG O2 Sat (Measured) ABG O2 Content ABG Base Excess Jasvir Test O2 Delivery Device Oxygen Flow Rate Vent Mode Vent Rate Mechanical Rate Pressure Support Vent Sodium Potassium Chloride Carbon Dioxide Anion Gap BUN Creatinine Est GFR (CKD-EPI)AfAm Est GFR (CKD-EPI)NonAf Random Glucose Calcium Magnesium Total Bilirubin AST ALT Alkaline Phosphatase Troponin I 21.00 H* Total Protein Albumin ASSESSMENT AND PLAN: Acute Hypoxic and Hypercapneic Respiratory Failure Acute on Chronic Systolic Heart Failure Acute Pulmonary Edema Hypertensive Urgency Pneumonia Sepsis Lactic Acidosis Elevated LFTs FABRICIO Smoker Delerium: Etiology to be determined Follow mental status Low infusion rate of IVF Hold Lasix O2 as needed Aspiration precautions Eliquis Cardiology follow ECHO BB and CCB as per Cards Monitor urine output, creatinine ABX per ID ICU monitoring for tenuous respiratory status and delerium Dr Dillard Critical care time spent in reviewing chart, evaluating patient and formulating plan 35 min
--- NOTE | 2019-01-29 13:08 | PN ---
Progress Note, Physician - Current Medication List Current Medications: Active Medications Acetaminophen (Ofirmev Injection -) 1,000 mg IVPB Q6H PRN PRN Reason: FEVER Last Admin: 01/26/19 03:54 Dose: 1,000 mg Apixaban (Eliquis -) 5 mg PO BID [facility] Last Admin: 01/29/19 09:28 Dose: 5 mg Atorvastatin Calcium (Lipitor -) 10 mg PO HS [facility] Last Admin: 01/28/19 21:50 Dose: 10 mg Carvedilol (Coreg -) 6.25 mg PO BID [facility] Last Admin: 01/29/19 09:31 Dose: 6.25 mg Chlorhexidine Gluconate (Hibiclens For Decolonization -) 1 applic TP HS [facility] Last Admin: 01/28/19 21:51 Dose: 1 applic Furosemide (Lasix Injection -) 40 mg IVPUSH DAILY [facility] Last Admin: 01/29/19 09:28 Dose: 40 mg Cefazolin Sodium 1 gm/ (Dextrose) 50 mls @ 100 mls/hr IVPB Q8H-IV [facility] Last Admin: 01/29/19 09:27 Dose: 100 mls/hr Lactated Ringer's (Lactated Ringers Solution) 1,000 ml in 1,000 mls @ 100 mls/ hr IV [facility] Labetalol HCl (Normodyne Injection -) 10 mg IVPUSH Q4H PRN PRN Reason: HYPERTENSION Last Admin: 01/28/19 04:24 Dose: 10 mg Lorazepam (Ativan Injection -) 2 mg IVPUSH Q3H PRN PRN Reason: AGITATION Last Admin: 01/29/19 05:58 Dose: 2 mg Morphine Sulfate (Morphine Sulfate) 0.5 mg IVPUSH Q4H PRN PRN Reason: PAIN LEVEL 7 - 10 Nifedipine (Procardia Xl -) 90 mg PO DAILY [facility] Last Admin: 01/29/19 11:13 Dose: Not Given Quetiapine Fumarate (Seroquel -) 50 mg PO HS [facility] Last Admin: 01/28/19 21:50 Dose: 50 mg - Objective Vital Signs: Vital Signs Temperature 98.4 F 01/29/19 10:00 Pulse Rate 87 01/29/19 12:00 Respiratory Rate 18 01/29/19 12:00 Blood Pressure 150/105 H 01/29/19 12:00 O2 Sat by Pulse Oximetry (%) 98 01/29/19 10:00 Eyes: Yes: WNL, Conjunctiva Clear, EOM Intact HENT: Yes: WNL, Atraumatic, Normocephalic Neck: Yes: WNL, Supple, Trachea Midline Cardiovascular: Yes: WNL, Regular Rate and Rhythm Respiratory: Yes: WNL, Regular, CTA Bilaterally Gastrointestinal: Yes: WNL, Normal Bowel Sounds Genitourinary: Yes: WNL Musculoskeletal: Yes: WNL Extremities: Yes: WNL Edema: Yes Integumentary: Yes: WNL Neurological: Yes: Lethargy ...Motor Strength: WNL Psychiatric: Yes: WNL Labs: CBC, BMP 01/29/19 06:05 01/29/19 06:05 INR, PTT INR 1.18 (0.83-1.09) H 01/23/19 10:30 Assessment/Plan - Problems (1) Acute on chronic systolic and diastolic heart failure, NYHA class 1 Assessment/Plan: IV diuresis with monitor diuretic response, renal fxn and electrolytes CXR: improving congestion, since extubated, wean FIO2 as tolerated Code(s): I50.43 - ACUTE ON CHRONIC COMBINED SYSTOLIC AND DIASTOLIC HRT FAIL (2) Acute on chronic renal failure Code(s): N17.9 - ACUTE KIDNEY FAILURE, UNSPECIFIED; N18.9 - CHRONIC KIDNEY DISEASE, UNSPECIFIED Due to above, resume lisinopril once renal fxn stabilizes, resumed on Procardia XL 90 qd, replete K (3) Acute respiratory failure with hypoxia and hypercapnia Code(s): J96.01 - ACUTE RESPIRATORY FAILURE WITH HYPOXIA; J96.02 - ACUTE RESPIRATORY FAILURE WITH HYPERCAPNIA (4) Elevated liver enzymes Code(s): R74.8 - ABNORMAL LEVELS OF OTHER SERUM ENZYMES Hepatic congestion, LFTs downtrending (5) Hypertensive emergency Code(s): I16.1 - HYPERTENSIVE EMERGENCY (6) Elevated troponin Assessment/Plan: Subendocardial ischemia->remains chronically elevated (0.3), increased to 19 nonstemi d/c Eliquis start IV hepqrine start ASA Plavix cont BB If mental status improves c. cath Code(s): R74.8 - ABNORMAL LEVELS OF OTHER SERUM ENZYMES (7) Paroxysmal afib with RVR I48.0 Increase carvedilol 6.25 bid with uptitration as tolerated, continue Eliquis 5 bid (8) Possible PNA Empiric abx per C&S cc time spent 37 min
--- NOTE | 2019-01-29 13:39 | CONSULT ---
Admitting History and Physical - Admission History of Present Illness: Per EMR- Patient is a 58 year old male with a significant past medical history of diastolic CHF, aortic aneurysm (w/mild dilation), FABRICIO, HTN, nonobstructive CAD ( multiple caths done at other tertiary care centers), past hx lithotripsy for left nephrolithiasis, active smoker. He presents to [facility] ED for acute respiratory failure. Patient was intubated in the field after he experienced three days of respiratory difficulty. EMS brought him in while intubated, sedated after he was in acute respiratory failure with no audible lung sounds. On arrival he was also noted to have hypertensive emergency 238/185, tachycardic 130s and hypothermic (96.1f). His ABGs show acute respiratory hypercapneic failure and has been monitored closely in the ICU. Extubated over the weekend. NGT in place. Coughing on secretions. Dysphonic. Low volume History Source: Medical Record Limitations to Obtaining History: Clinical Condition - Past Medical History Cardiovascular: Yes: CAD (non-obstx), CHF (Chronic systolic and diastolic CHF), HTN, Other (NSVT) Pulmonary: Yes: Sleep Apnea Renal/: Yes: Renal Inusuff, Renal Calculi Heme/Onc: Yes: Anemia Psych: Yes: Depression - Smoking History Smoking history: Unknown if ever smoked Have you smoked in the past 12 months: No Aproximately how many cigarettes per day: 8 - Alcohol/Substance Use Hx Alcohol Use: No History of Substance Use: reports: Marijuana - Social History ADL: Independent Occupation: currently unemployed History - Admission Reason For Visit: HYPERTENSIVE URGENCY/ACUTE PULMONARY EDEMA/ - Diagnostics X-ray: Report Reviewed CT Scan: Report Reviewed - General Mental Status: Alert and Oriented, Awake and Alert, Able to Follow Commands Attention: Intact, Mild Impairment Ability to Follow Directions: Good Head/Neck Control: Good - Hearing Hearing: Normal Speech Evaluation - Communication Primary Language: ALBANIAN Communication: Yes: Simple Responses Oral Expression Ability: Yes: Mild Impairment - Speech Production Able to Make Needs Known: Yes: Mildly Impaired Intelligibility: Yes: Mildly Impaired - Speech Characteristics Voice Loudness: Mildly Soft/Quiet Voice Pitch: Yes: Normal Voice Phonatory-based Quality: Yes: Dysphonia Voice, Other Observations: Yes: Throat Clearing (coughing on secretions), Progressively Weak Voice, Inadequate Breath Support - Language/Auditory Comprehension Follows: Yes: 1 Stage Simple Commands Observation: Able to respond to yes/no queries: Yes, Yes/No Confusion: No, Comprehends Conversational Speech: Yes - Language/Verbal Expression Able to Respond to Simple Queries: Yes: Mildly Impaired Able to Communicate Wants and Needs: Yes: Mildly Impaired Functional Communication Status: Yes: Mildly Impaired - Swallow Evaluation/Bedside Assessment Current Nutritional Intake: NPO Dentition: Yes: Adequate Facial Symmetry at Rest: Facial Droop Right (slight?) Against Resistance Opening: Weak Against Resistance Closing: Weak Pucker Lips: Weak Smile: Weak Lingual Movement: Reduced Protrusion Lingual Movement Strgth Against Opposition: Reduced Laryngeal Movement: Labored,delay initiation Oral Prep Time: WFL A-P Transit: WFL Pocketing: None Timing of Swallow: Delayed Coughing/Throat Clear: Yes (on secretions and apple sauce) Recommendations - Speech Evaluation, Impression/Plan Impression: Coughing on secretions. Dysphonic. Low volume. Verbal. Reduced respiratory capacity for speech.Laughing frequesntly but knows he came to [facility] for difficulty breathing, o x 3. - Dysphagia Impressions/Plan Swallowing Skills: Impaired Dysphagia Impressions: Moderate Impairment, Suspect Aspiration *Silent aspiration: cannot be R/O at bedside Recommendations: Other (To reassess tomorrow for po trials if less congested and voice is stronger.) - Recommendations Diet Consistency: NPO
[2019-01-29] MEDS ORDERED: ASPIRIN 325 MG TABLET PO ONE (13:46)
[2019-01-29] MEDS ORDERED: CLOPIDOGREL BISULFATE 300 MG TABLET PO ONE (13:47)
[2019-01-29] MEDS ORDERED: HEPARIN NA (PORCINE) 5,000 UNITS/ML 1ML VIAL IVPUSH PRN (13:47)
--- NOTE | 2019-01-29 13:53 | PN ---
Physical Exam: SUBJECTIVE: Patient seen and examined at the bedside. Patient is intermittently awake and alert and is able to follow some commands. OBJECTIVE: Vital Signs Period Temp Pulse Resp BP Sys/Rosado Pulse Ox Last 24 Hr 97.9 F-98.4 F 80-105 16-22 120-170/81-118 98-99 GENERAL: Awake and intermittently alert. HEENT: NC/AT, TYLER, sclera anicteric NECK: No JVD appreciated LUNGS: Improved breath sounds CTA b/l, no rales. HEART: RRR, S1, S2 without murmur ABDOMEN: Soft, NT/ND, normoactive bowel sounds, no guarding, no suprapubic fullness, no edema noted EXTREMITIES: 2+ DP pulses, warm, well-perfused, no edema. SKIN: Warm, dry, normal turgor, no rashes or lesions noted Laboratory Results - last 24 hr 01/29/19 01/29/19 01/29/19 06:05 06:05 08:35 WBC 7.6 RBC 3.42 L Hgb 9.3 L Hct 28.9 L MCV 84.3 MCH 27.1 MCHC 32.1 RDW 15.0 Plt Count 213 D MPV 7.5 Absolute Neuts (auto) 5.7 Neutrophils % 74.6 Lymphocytes % 11.3 Monocytes % 12.5 H Eosinophils % 1.4 Basophils % 0.2 Nucleated RBC % 0 Anticoagulation Therapy No Result Required. Puncture Site Right radial ABG pH 7.50 H ABG pCO2 at Pt Temp 35.8 ABG pO2 at Pt Temp 97.7 ABG HCO3 27.9 H ABG O2 Sat (Measured) 98.2 H ABG O2 Content 12.4 L ABG Base Excess 4.8 H Jasvir Test Positive O2 Delivery Device No Result Required. Oxygen Flow Rate 3l Vent Mode No Result Required. Vent Rate No Result Required. Mechanical Rate No Result Required. Pressure Support Vent No Result Required. Sodium 150 H Potassium 3.4 L Chloride 113 H Carbon Dioxide 29 Anion Gap 7 L BUN 37.6 H Creatinine 1.3 Est GFR (CKD-EPI)AfAm 69.22 Est GFR (CKD-EPI)NonAf 59.72 Random Glucose 107 H Calcium 8.8 Magnesium 2.4 Total Bilirubin 2.3 H AST 78 H ALT 46 Alkaline Phosphatase 111 Troponin I 19.20 H* Total Protein 7.2 Albumin 2.8 L 01/29/19 11:18 WBC RBC Hgb Hct MCV MCH MCHC RDW Plt Count MPV Absolute Neuts (auto) Neutrophils % Lymphocytes % Monocytes % Eosinophils % Basophils % Nucleated RBC % Anticoagulation Therapy Puncture Site ABG pH ABG pCO2 at Pt Temp ABG pO2 at Pt Temp ABG HCO3 ABG O2 Sat (Measured) ABG O2 Content ABG Base Excess Jasvir Test O2 Delivery Device Oxygen Flow Rate Vent Mode Vent Rate Mechanical Rate Pressure Support Vent Sodium Potassium Chloride Carbon Dioxide Anion Gap BUN Creatinine Est GFR (CKD-EPI)AfAm Est GFR (CKD-EPI)NonAf Random Glucose Calcium Magnesium Total Bilirubin AST ALT Alkaline Phosphatase Troponin I 21.00 H* Total Protein Albumin Active Medications Generic Name Dose Route Start Last Admin Trade Name Freq PRN Reason Stop Dose Admin Acetaminophen 1,000 mg 01/26/19 02:32 01/26/19 03:54 Ofirmev Injection - IVPB 1,000 mg Q6H PRN Administration FEVER Atorvastatin Calcium 40 mg 01/29/19 22:00 Lipitor - PO HS HONEY Carvedilol 6.25 mg 01/28/19 14:50 01/29/19 09:31 Coreg - PO 6.25 mg BID HONEY Administration Chlorhexidine Gluconate 1 applic 01/23/19 22:00 01/28/19 21:51 Hibiclens For Decolonization - TP 1 applic HS HONEY Administration Furosemide 40 mg 01/27/19 10:00 01/29/19 09:28 Lasix Injection - IVPUSH 40 mg DAILY HONEY Administration Heparin Sodium (Porcine) 1,000 unit 01/29/19 13:47 Heparin - IVPUSH PRN PRN Heparin Heparin Sodium (Porcine) 5,000 unit 01/29/19 13:47 Heparin - IVPUSH PRN PRN Heparin Cefazolin Sodium 1 gm/ 50 mls @ 100 mls/hr 01/28/19 18:00 01/29/19 09:27 Dextrose IVPB 100 mls/hr Q8H-IV HONEY Administration Heparin Sodium/Dextrose 25,000 units in 500 mls @ 20 mls/hr 01/29/19 14:00 Heparin Infusion - IVPB TITR HONEY Protocol 1,000 UNITS/HR Labetalol HCl 10 mg 01/24/19 12:33 01/28/19 04:24 Normodyne Injection - IVPUSH 10 mg Q4H PRN Administration HYPERTENSION Lorazepam 2 mg 01/27/19 22:24 01/29/19 05:58 Ativan Injection - IVPUSH 2 mg Q3H PRN Administration AGITATION Morphine Sulfate 0.5 mg 01/29/19 09:28 Morphine Sulfate IVPUSH Q4H PRN PAIN LEVEL 7 - 10 Nifedipine 90 mg 01/28/19 14:30 01/29/19 11:13 Procardia Xl - PO Not Given DAILY HONEY Quetiapine Fumarate 50 mg 01/27/19 22:00 01/28/19 21:50 Seroquel - PO 50 mg HS HONEY Administration ASSESSMENT/PLAN: Chay Lopez is a 58 year old male with a PMHx of HFrEF, stable aortic aneurysm, FABRICIO, HTN, CAD s/p multiple caths admitted to the ICU for acute hypercapneic hypoxic repsiratory failure and hypertensive urgency. Acute hypercapneic hypoxic respiratory failure Acute Pulmonary Edema HFrEF, acute Congestive hepatopathy Acute on chronic renal failure Lactic Acidosis Hypertensive Urgency Neuro - intermittently confused and unable to follow commands - head CT within normal limits - likely from prolonged effects of sedation in the setting of high dosages and ESHA vs ACS Cardiac - Pt currently on Coreg 6.25 - BP goal 140-150 SBP / 80-90 DBP - Troponin peaked 2/2 to demand from HTN and respiratory distress, peak at 0.38 - on 01/29, found with elevated troponin elevated to 19 trended up to 21 - Dr. Hodges consulted, recs appreciated - stop Elliquis - aspirin loading dose 325 then continue 81 daily, Plavix loading dose 300mg then continue 75mg daily - Lipitor increased to 40mg daily - heparin drip started - Echo reviewed and no change compared to previous in 05/2018, some impaired LV relaxation and hypokinesis of L ventricle, no pulmonary HTN - labetalol prn - continue home lisinopril - Lasix held - procardia when stable for PO meds Respiratory - extubated - hold Lasix Renal - Acute on chronic renal insufficency now resolved with notable chronic dysfunction - FeUrea calculated at 56% in support of intrinisic injury that has occurred - ESHA, improving, today CRE 1.3 - potassium low in the setting of continued Lasix, now stopped - continue to monitor urine output Gastrointestinal - Congestive hepatopathy resolving; LFTs downtrending - NGT tube placed for feeds and meds, may d/c if passing speech and swallow eval - aspiration precautions Infectious Disease - no WBC, no fevers, continue to monitor - sputum cultures showing E coli and Staph aureus - off abx currently - Dr. Martinez consulted, recs appreciated - close monitoring off abx FEN - Avoid fluids due to overload/pulm edema - continue to monitor electrolytes and replete as necessary - Tube Feed Jevity, if passing speech and swallow can trial on diet Prophylaxis - on heparin drip Code - full code Lines - R wrist inserted 01/28 Dispo - continue to monitor in ICU CASE DISCUSSED WITH DR LIANNE HERNANDEZ DO PGY-1 Visit type - Emergency Visit Emergency Visit: No - New Patient This patient is new to me today: No - Critical Care Critical Care patient: Yes Total Critical Care Time (in minutes): 40 Critical Care Statement: The care of this patient involved high complexity decision making to prevent further life threatening deterioration of the patient 's condition and/or to evaluate & treat vital organ system(s) failure or risk of failure.
[2019-01-29 14:14] VITALS: BMI 23.5
[2019-01-29] MEDS: HEPARIN INFUSION - 25,000 UNITS/500 ML INFUS.BAG IVPB SCH (15:30)
[2019-01-29] MEDS: HEPARIN NA (PORCINE) 5,000 UNITS/ML 1ML VIAL IVPUSH PRN ×2 (15:48→22:31)
[2019-01-29] MEDS: amLODIPine BESYLATE 10 MG TABLET (FP) PO SCH (19:39)
[2019-01-29] MEDS: CHLORHEXIDINE GLUCONATE 4% CLEANSER FOR DECOLONIZATION TP SCH (21:18)
[2019-01-29] MEDS: QUEtiapine FUMARATE 50 MG TABLET PO SCH (21:19)
[2019-01-29] MEDS: ATORVASTATIN CA 40 MG TABLET (FP) PO SCH (21:19)
[2019-01-29] MEDS ORDERED: NIFEdipine 10 MG CAPSULE (FP) PO SCH (22:00)
[2019-01-30] MEDS ORDERED: ceFAZolin SODIUM 1 GM VIAL ONE ×4 (01:22→21:44)
[2019-01-30] MEDS ORDERED: DEXTROSE 5%-WATER - 50 ML IVPB ONE ×4 (01:22→21:44)
[2019-01-30] MEDS: CEFAZOLIN 1 GM in DEXTROSE 5%-WATER - 50 ML IVPB SCH ×3 (01:26→18:28)
[2019-01-30 06:29] LABS: BASO % 0.6 % (0-2.0); HEMATOCRIT 29.3 % (35.4-49); HEMOGLOBIN 9.3 GM/dL (11.7-16.9); LYMPH % 16.8 % (8-40); MCH 26.7 pg (25.7-33.7); MCHC 31.9 g/dl (32.0-35.9); MEAN CELL VOLUME 83.9 fl (80-96); MEAN PLT VOLUME 7.7 fl (7.5-11.1); MONO % 13.1 % (3.8-10.2); NEUT % 67.5 % (42.8-82.8); PLATELET COUNT 253 K/MM3 (134-434); RBC 3.49 M/mm3 (4.00-5.60); RDW 14.9 % (11.9-15.9); WHITE BLOOD COUNT 7.2 K/mm3 (4.0-10.0)
[2019-01-30] MEDS: HEPARIN NA (PORCINE) 5,000 UNITS/ML 1ML VIAL IVPUSH PRN ×2 (06:49→14:51)
[2019-01-30 06:54] LABS: ALBUMIN 2.8 g/dl (3.4-5.0); BILIRUBIN,TOTAL 2.2 mg/dL (0.2-1); BLOOD UREA NITROGEN 45.4 mg/dL (7-18); CALCIUM 9.5 mg/dL (8.5-10.1); CREATININE 1.4 mg/dL (0.55-1.3); MAGNESIUM 2.5 mg/dL (1.8-2.4); POTASSIUM 3.6 mmol/L (3.5-5.1); TOT PROT 7.3 g/dl (6.4-8.2)
--- NOTE | 2019-01-30 08:26 | PN ---
Progress Note, Physician Chief Complaint: Brought in by EMS for respiratory distress-intubated in field. Extubated yesterday and remains in ICU for critical care management. States he fells much better with breathing tube out History of Present Illness: History of Present Illness: Patient is a 58 year old male with a significant past medical history of diastolic CHF, aortic aneurysm (w/mild dilation), FABRICIO, HTN, nonobstructive CAD ( multiple caths done at other tertiary care centers), past hx lithotripsy for left nephrolithiasis, active smoker. He presents to [facility] ED for acute respiratory failure. Patient was intubated in the field after he experienced three days of respiratory difficulty. EMS brought him in while intubated, sedated after he was in acute respiratory failure with no audible lung sounds. On arrival he was also noted to have hypertensive emergency 238/185, tachycardic 130s and hypothermic (96.1f). His ABGs show acute respiratory hypercapneic failure. He was place on a Nitroglycerine drip for hypertensive emergency and given vasotec IV with improvement of his BP. Lasix 40mg x 1 push given, and he was started on propofol. imaging: head ct 01/23/19: negative for acute process ekg 01/23/19 - sinus tachycardia, left atrial enlargement chest xray 01/23/19 - large heart, congestive changes, possible retricardio inf ED course notable for: hypertensive emergency:238/185, hr 139, 96.1F + marijuana screen, otherwise negaive tox lactic acid 5.3 creatinine 2.4/bun 25.9 bnp 5680 trop + 0.25, trending q 6 hrs presents intubated in the field - Current Medication List Current Medications: Active Medications Acetaminophen (Ofirmev Injection -) 1,000 mg IVPB Q6H PRN PRN Reason: FEVER Last Admin: 01/26/19 03:54 Dose: 1,000 mg Amlodipine Besylate (Norvasc -) 10 mg PO DAILY [facility] Last Admin: 01/29/19 19:39 Dose: 10 mg Aspirin (Asa -) 81 mg PO DAILY [facility] Atorvastatin Calcium (Lipitor -) 40 mg PO HS [facility] Last Admin: 01/29/19 21:19 Dose: 40 mg Carvedilol (Coreg -) 6.25 mg PO BID [facility] Last Admin: 08/12/19 21:19 Dose: 6.25 mg Chlorhexidine Gluconate (Hibiclens For Decolonization -) 1 applic TP HS [facility] Last Admin: 01/29/19 21:18 Dose: 1 applic Clopidogrel Bisulfate (Plavix -) 75 mg PO DAILY [facility] Furosemide (Lasix Injection -) 40 mg IVPUSH DAILY [facility] Last Admin: 01/29/19 09:28 Dose: 40 mg Heparin Sodium (Porcine) (Heparin -) 1,000 unit IVPUSH PRN PRN PRN Reason: Heparin Heparin Sodium (Porcine) (Heparin -) 5,000 unit IVPUSH PRN PRN PRN Reason: Heparin Last Admin: 01/30/19 06:49 Dose: 5,000 unit Cefazolin Sodium 1 gm/ (Dextrose) 50 mls @ 100 mls/hr IVPB Q8H-IV [facility]ONEY Last Admin: 01/30/19 01:26 Dose: 100 mls/hr Heparin Sodium/Dextrose (Heparin Infusion -) 25,000 units in 500 mls @ 20 mls/ hr IVPB TITR HONEY; Protocol Last Titration: 01/30/19 06:49 Dose: 1,300 units/hr, 26 mls/hr Labetalol HCl (Normodyne Injection -) 10 mg IVPUSH Q4H PRN PRN Reason: HYPERTENSION Last Admin: 01/28/19 04:24 Dose: 10 mg Morphine Sulfate (Morphine Sulfate) 0.5 mg IVPUSH Q4H PRN PRN Reason: PAIN LEVEL 7 - 10 Last Admin: 01/30/19 03:16 Dose: 0.5 mg Quetiapine Fumarate (Seroquel -) 50 mg PO HS [facility] Last Admin: 01/29/19 21:19 Dose: 50 mg - Objective Vital Signs: Vital Signs Temperature 98.4 F 01/30/19 08:00 Pulse Rate 95 H 01/30/19 08:00 Respiratory Rate 15 01/30/19 08:00 Blood Pressure 150/116 H 01/30/19 08:00 O2 Sat by Pulse Oximetry (%) 98 01/29/19 20:16 Constitutional: Yes: Well Nourished, No Distress, Calm Eyes: Yes: WNL, Conjunctiva Clear, EOM Intact HENT: Yes: WNL, Atraumatic, Normocephalic Neck: Yes: WNL, Supple, Trachea Midline Cardiovascular: Yes: WNL, Regular Rate and Rhythm Respiratory: Yes: WNL, Regular, CTA Bilaterally Gastrointestinal: Yes: WNL, Normal Bowel Sounds, Soft ...Rectal Exam: Yes: Deferred Genitourinary: Yes: Rubio Present (with clear yellow urine) Breast(s): Yes: WNL Musculoskeletal: Yes: WNL Extremities: Yes: WNL Edema: Yes Edema: LLE: Trace, RLE: Trace Peripheral Pulses WNL: Yes Integumentary: Yes: WNL Neurological: Yes: WNL, Alert, Oriented ...Motor Strength: WNL Psychiatric: Yes: WNL, Alert, Oriented Labs: CBC, BMP 01/30/19 05:20 01/30/19 05:20 INR, PTT INR 1.18 (0.83-1.09) H 01/23/19 10:30 - ....Imaging Chest X-ray: Image Reviewed (ETT since removed. No effusions or infiltrates) X-ray: Image Reviewed (ABX: no obstruction noted. NGT noted and since removed) Cat Scan: Report Reviewed (HCT: Severely limited examination with no gross evidence of acute intracranial pathology) Problem List - Problems (1) Acute metabolic encephalopathy Assessment/Plan: resolving, more alert today as per nursing staff avoid any sedating agents frequent re-orientation and family visitation Code(s): G93.41 - METABOLIC ENCEPHALOPATHY (2) Acute respiratory failure with hypoxia and hypercapnia Assessment/Plan: extubated yesterday and remains extubated, not requiring O2 pulse oximetry , maintain O2 sta >92% with supplemental O2 prn Code(s): J96.01 - ACUTE RESPIRATORY FAILURE WITH HYPOXIA; J96.02 - ACUTE RESPIRATORY FAILURE WITH HYPERCAPNIA (3) Ixuuq-[id number] renal failure Assessment/Plan: Cr last week 2.4, trending down to 1.4 continue to hold diuretics continue to trend Cr avoid all nephrotoxic agents continue to hold lisinipril plan for cardiac cath when Cr stabalizes Code(s): N17.9 - ACUTE KIDNEY FAILURE, UNSPECIFIED; N18.9 - CHRONIC KIDNEY DISEASE, UNSPECIFIED (4) Elevated liver enzymes Assessment/Plan: monitor LFTs avoid any hepatotoxic agents Code(s): R74.8 - ABNORMAL LEVELS OF OTHER SERUM ENZYMES (5) Elevated troponin Assessment/Plan: Trop 19.2/21/18.5/14.8 currently no c/o chest pain serial EKGs will continue to trend c/w telemetry cardiology following c/w asa possible cardiac cath in near future Code(s): R74.8 - ABNORMAL LEVELS OF OTHER SERUM ENZYMES (6) Paroxysmal A-fib Assessment/Plan: in SR with occosional PVCs, no PACs noted c/w cardiac monitoring Code(s): I48.0 - PAROXYSMAL ATRIAL FIBRILLATION (7) Prophylactic measure Assessment/Plan: FEN cardiac diet no additional IVF needed, holding diuresis d/t compromised renal function daily CMP DVT on heparin gtt for NSTEMI Dispo transfer to telemetry from ICU appreciate ICU level of care full code discharge planning Code(s): Z29.9 - ENCOUNTER FOR PROPHYLACTIC MEASURES, UNSPECIFIED (8) Hypertensive emergency Assessment/Plan: c/w increased dose of carvedilol 12.5 mg bid c/w on amlodipine continue to hold furosemide Code(s): I16.1 - HYPERTENSIVE EMERGENCY Visit type - Emergency Visit Emergency Visit: Yes ED Registration Date: 01/23/19 Care time: The patient presented to the Emergency Department on the above date and was hospitalized for further evaluation of their emergent condition. - New Patient This patient is new to me today: Yes Date on this admission: 01/30/19 - Critical Care Critical Care patient: Yes Total Critical Care Time (in minutes): 35 Critical Care Statement: The care of this patient involved high complexity decision making to prevent further life threatening deterioration of the patient 's condition and/or to evaluate & treat vital organ system(s) failure or risk of failure.
[2019-01-30] MEDS ORDERED: PT OWN MED DRAWER 7, Y5N ONE ×2 (09:59→21:44)
[2019-01-30] MEDS: CLOPIDOGREL BISULFATE 75 MG TABLET (FP) PO SCH (10:06)
[2019-01-30] MEDS: amLODIPine BESYLATE 10 MG TABLET (FP) PO SCH (10:06)
[2019-01-30] MEDS: CARVEDILOL 3.125 MG TABLET (FP) PO SCH (10:06)
[2019-01-30] MEDS: ASPIRIN 81 MG CHEWABLE TABLETS PO SCH (10:06)
--- NOTE | 2019-01-30 10:19 | PN ---
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 Voice much stronger. Speech precise. No longer coughing or overtly congested. Legs out of bed, ready to get up. educated him on not getting up unassisted. Of note, he walks with cane at times due to impaired balance. Oriented x 3. Laughs a lot.Says he sees his parking in ED lot? [employer]? 3 oz water test (-). Good tolerance of bread. Rec: Reg diet,thin liquid.
--- NOTE | 2019-01-30 11:07 | PN ---
Progress Note, Physician Chief Complaint: Pt is alert and oriented; denies chest pain this admission, but has had "difficulty breathing". History of Present Illness: 58 yr old black man with h/o systolic/diastolic CHF EF 45% 12/2017 ECHO, sleep apnea, HTN, CAD (?coronary angiogram a few years ago), smoker, presenting to ED in respiratory failure. EMS reports that they were called for respiratory distress. Upon arrival, pt was found to be in respiratory failure, with no audible lung sounds. Pt was intubated in the field. In ED, pt was found to be hypertensive to 240/150, O2 sat 100%, HR 130s. IV NTG was started; after more than an hour of high dosing, pt's BP began to respond favorably. - Current Medication List Current Medications: Active Medications Acetaminophen (Ofirmev Injection -) 1,000 mg IVPB Q6H PRN PRN Reason: FEVER Last Admin: 01/26/19 03:54 Dose: 1,000 mg Amlodipine Besylate (Norvasc -) 10 mg PO DAILY [facility] Last Admin: 01/30/19 10:06 Dose: 10 mg Aspirin (Asa -) 81 mg PO DAILY [facility] Last Admin: 01/30/19 10:06 Dose: 81 mg Atorvastatin Calcium (Lipitor -) 40 mg PO HS [facility] Last Admin: 01/29/19 21:19 Dose: 40 mg Carvedilol (Coreg -) 6.25 mg PO BID [facility] Last Admin: 01/30/19 10:06 Dose: 6.25 mg Chlorhexidine Gluconate (Hibiclens For Decolonization -) 1 applic TP HS [facility] Last Admin: 01/29/19 21:18 Dose: 1 applic Clopidogrel Bisulfate (Plavix -) 75 mg PO DAILY [facility] Last Admin: 01/30/19 10:06 Dose: 75 mg Furosemide (Lasix Injection -) 40 mg IVPUSH DAILY [facility] Last Admin: 01/29/19 09:28 Dose: 40 mg Heparin Sodium (Porcine) (Heparin -) 1,000 unit IVPUSH PRN PRN PRN Reason: Heparin Heparin Sodium (Porcine) (Heparin -) 5,000 unit IVPUSH PRN PRN PRN Reason: Heparin Last Admin: 01/30/19 06:49 Dose: 5,000 unit Cefazolin Sodium 1 gm/ (Dextrose) 50 mls @ 100 mls/hr IVPB Q8H-IV [facility] Last Admin: 01/30/19 10:06 Dose: 100 mls/hr Heparin Sodium/Dextrose (Heparin Infusion -) 25,000 units in 500 mls @ 20 mls/ hr IVPB TITR [facility]ONEY; Protocol Last Titration: 01/30/19 06:49 Dose: 1,300 units/hr, 26 mls/hr Labetalol HCl (Normodyne Injection -) 10 mg IVPUSH Q4H PRN PRN Reason: HYPERTENSION Last Admin: 01/28/19 04:24 Dose: 10 mg Morphine Sulfate (Morphine Sulfate) 0.5 mg IVPUSH Q4H PRN PRN Reason: PAIN LEVEL 7 - 10 Last Admin: 01/30/19 03:16 Dose: 0.5 mg Quetiapine Fumarate (Seroquel -) 50 mg PO HS [facility] Last Admin: 01/29/19 21:19 Dose: 50 mg - Objective Vital Signs: Vital Signs Temperature 98.4 F 01/30/19 08:00 Pulse Rate 95 H 01/30/19 08:00 Respiratory Rate 15 01/30/19 08:00 Blood Pressure 150/116 H 01/30/19 08:00 O2 Sat by Pulse Oximetry (%) 98 01/29/19 20:16 Constitutional: Yes: Calm Eyes: Yes: WNL HENT: Yes: WNL Neck: Yes: WNL Cardiovascular: Yes: S1, S2, S4 Respiratory: Yes: Diminished Gastrointestinal: Yes: Soft ...Rectal Exam: Yes: Deferred Genitourinary: No: Anuria Breast(s): Yes: WNL Musculoskeletal: Yes: WNL Extremities: Yes: WNL Edema: No Peripheral Pulses WNL: Yes Integumentary: Yes: WNL Neurological: Yes: WNL Psychiatric: Yes: WNL Labs: CBC, BMP 01/30/19 05:20 01/30/19 05:20 INR, PTT INR 1.18 (0.83-1.09) H 01/23/19 10:30 Abnormal Lab Results 01/29/19 01/29/19 01/30/19 11:18 20:15 05:20 RBC 3.49 L Hgb 9.3 L Hct 29.3 L MCHC 31.9 L Monocytes % 13.1 H Sodium Chloride Carbon Dioxide Anion Gap BUN Creatinine Random Glucose Magnesium Total Bilirubin AST ALT Alkaline Phosphatase Creatine Kinase 333 H CK-MB (CK-2) 4.0 H Troponin I 21.00 H* 18.50 H* Albumin 01/30/19 05:20 RBC Hgb Hct MCHC Monocytes % Sodium 150 H Chloride 113 H Carbon Dioxide 33 H Anion Gap 4 L BUN 45.4 H Creatinine 1.4 H Random Glucose 120 H Magnesium 2.5 H Total Bilirubin 2.2 H AST 75 H ALT 66 H Alkaline Phosphatase 135 H Creatine Kinase CK-MB (CK-2) Troponin I Albumin 2.8 L - ....Imaging Chest X-ray: Image Reviewed EKG: Image Reviewed Other: Image Reviewed (telemetry: NSR) Problem List - Problems (1) Acute on chronic systolic and diastolic heart failure, NYHA class 1 Assessment/Plan: On carvedilol and furosemide. Start ACEI as renal function improves for CHF, HTN, NSTEMI. Code(s): I50.43 - ACUTE ON CHRONIC COMBINED SYSTOLIC AND DIASTOLIC HRT FAIL (2) Acute on chronic renal failure Code(s): N17.9 - ACUTE KIDNEY FAILURE, UNSPECIFIED; N18.9 - CHRONIC KIDNEY DISEASE, UNSPECIFIED (3) Acute respiratory failure with hypoxia and hypercapnia Code(s): J96.01 - ACUTE RESPIRATORY FAILURE WITH HYPOXIA; J96.02 - ACUTE RESPIRATORY FAILURE WITH HYPERCAPNIA (4) Elevated liver enzymes Code(s): R74.8 - ABNORMAL LEVELS OF OTHER SERUM ENZYMES (5) Hypertensive emergency Assessment/Plan: Increase carvedilol today to 12.5 mg bid. On furosemide. Plan to start ACEI. F/u BP and HR serially. Code(s): I16.1 - HYPERTENSIVE EMERGENCY (6) Elevated troponin Assessment/Plan: Developed NSTEMI: Pt's TNI increased to >21 on 01/28/2019; now 18.5. EKG 01/29/19: NSR: LVH with repolarization changes no comparative acute STT changes. F/u EKG today. On ASA, clopidogrel, IV heparin. On high-dose statin. BP control is essential; carvedilol increased today to 12.5 mg bid; on amlodipine, furosemide (guard against over-diuresis). Improving renal function: consider starting ACEI for HTN, CHF, CAD. Plan for coronary artery evaluation. Code(s): R74.8 - ABNORMAL LEVELS OF OTHER SERUM ENZYMES (7) Tobacco abuse Assessment/Plan: Pt says he stopped years ago; was also smoking a pipe. Smokes marijuana. Code(s): Z72.0 - TOBACCO USE (8) NSTEMI (non-ST elevated myocardial infarction) Assessment/Plan: Please see under "elevated troponin". Code(s): I21.4 - NON-ST ELEVATION (NSTEMI) MYOCARDIAL INFARCTION Assessment/Plan CCU time spent: 35 minutes.
--- NOTE | 2019-01-30 11:24 | EKG ---
Test Reason : Blood Pressure : / mmHG Vent. Rate : 090 BPM Atrial Rate : 090 BPM P-R Int : 158 ms QRS Dur : 094 ms QT Int : 410 ms P-R-T Axes : 033 014 114 degrees QTc Int : 501 ms SINUS RHYTHM WITH PREMATURE ATRIAL COMPLEXES POSSIBLE LEFT ATRIAL ENLARGEMENT LEFT VENTRICULAR HYPERTROPHY WITH REPOLARIZATION ABNORMALITY PROLONGED QT ABNORMAL ECG Confirmed by Alvin Hurley MD ([id number]) on 01/30/2019 11:24:05 AM Referred By: Mayela ERWIN Confirmed By:Alvin Hurley MD
[2019-01-30] MEDS ORDERED: CARVEDILOL 6.25 MG TABLET (FP) PO ONE (11:28)
--- NOTE | 2019-01-30 11:30 | PN ---
Teaching Attending Note Name of Resident: Jose Reeder ATTENDING PHYSICIAN STATEMENT I saw and evaluated the patient. I reviewed the resident's note and discussed the case with the resident. I agree with the resident's findings and plan as documented. SUBJECTIVE: Patient seen and examined in the ICU. Much more awake and alert. Troponins still elevated. No EKG changes. Denies CP or SOB. Intake & Output 01/27/19 01/28/19 01/29/19 01/30/19 23:59 23:59 23:59 23:59 Intake Total 3798 450 865 626 Output Total 1550 3400 2700 300 Balance 8582 -6580 -2921 326 Weight 210 lb 4 oz 208 lb 1 oz 193 lb 6 oz 192 lb 4 oz Last Vital Signs Temp Pulse Resp BP Pulse Ox 98.4 F 95 H 15 150/116 H 98 01/30/19 08:00 01/30/19 08:00 01/30/19 08:00 01/30/19 08:00 01/29/19 20:16 Active Medications Acetaminophen (Ofirmev Injection -) 1,000 mg IVPB Q6H PRN PRN Reason: FEVER Last Admin: 01/26/19 03:54 Dose: 1,000 mg Amlodipine Besylate (Norvasc -) 10 mg PO DAILY [facility] Last Admin: 01/30/19 10:06 Dose: 10 mg Aspirin (Asa -) 81 mg PO DAILY [facility] Last Admin: 01/30/19 10:06 Dose: 81 mg Atorvastatin Calcium (Lipitor -) 40 mg PO HS [facility] Last Admin: 01/29/19 21:19 Dose: 40 mg Carvedilol (Coreg -) 6.25 mg PO BID [facility] Last Admin: 01/30/19 10:06 Dose: 6.25 mg Chlorhexidine Gluconate (Hibiclens For Decolonization -) 1 applic TP HS [facility] Last Admin: 01/29/19 21:18 Dose: 1 applic Clopidogrel Bisulfate (Plavix -) 75 mg PO DAILY [facility] Last Admin: 01/30/19 10:06 Dose: 75 mg Furosemide (Lasix Injection -) 40 mg IVPUSH DAILY [facility] Last Admin: 01/29/19 09:28 Dose: 40 mg Heparin Sodium (Porcine) (Heparin -) 1,000 unit IVPUSH PRN PRN PRN Reason: Heparin Heparin Sodium (Porcine) (Heparin -) 5,000 unit IVPUSH PRN PRN PRN Reason: Heparin Last Admin: 01/30/19 06:49 Dose: 5,000 unit Cefazolin Sodium 1 gm/ (Dextrose) 50 mls @ 100 mls/hr IVPB Q8H-IV [facility] Last Admin: 01/30/19 10:06 Dose: 100 mls/hr Heparin Sodium/Dextrose (Heparin Infusion -) 25,000 units in 500 mls @ 20 mls/ hr IVPB TITR [facility]; Protocol Last Titration: 01/30/19 06:49 Dose: 1,300 units/hr, 26 mls/hr Labetalol HCl (Normodyne Injection -) 10 mg IVPUSH Q4H PRN PRN Reason: HYPERTENSION Last Admin: 01/28/19 04:24 Dose: 10 mg Morphine Sulfate (Morphine Sulfate) 0.5 mg IVPUSH Q4H PRN PRN Reason: PAIN LEVEL 7 - 10 Last Admin: 01/30/19 03:16 Dose: 0.5 mg Potassium Chloride (K-Dur -) 40 meq PO ONCE ONE Stop: 01/30/19 11:21 Quetiapine Fumarate (Seroquel -) 50 mg PO HS [facility] Last Admin: 01/29/19 21:19 Dose: 50 mg General: Awake and alert, NAD HEENT: (-) Pallor (-) Icterus Heart: RRR Lung: Clear Abd: soft, nontender, + BS Ext: no edema Neuro: Awake and alert, non-focal Laboratory Results - last 24 hr 01/29/19 01/29/19 01/29/19 11:18 15:00 20:15 WBC RBC Hgb Hct MCV MCH MCHC RDW Plt Count MPV Absolute Neuts (auto) Neutrophils % Lymphocytes % Monocytes % Eosinophils % Basophils % Nucleated RBC % PTT (Actin FS) 28.4 30.8 Sodium Potassium Chloride Carbon Dioxide Anion Gap BUN Creatinine Est GFR (CKD-EPI)AfAm Est GFR (CKD-EPI)NonAf Random Glucose Calcium Phosphorus Magnesium Total Bilirubin AST ALT Alkaline Phosphatase Creatine Kinase Creatine Kinase Index CK-MB (CK-2) Troponin I 21.00 H* Total Protein Albumin 01/29/19 01/30/19 01/30/19 20:15 05:20 05:20 WBC 7.2 RBC 3.49 L Hgb 9.3 L Hct 29.3 L MCV 83.9 MCH 26.7 MCHC 31.9 L RDW 14.9 Plt Count 253 MPV 7.7 Absolute Neuts (auto) 4.9 Neutrophils % 67.5 Lymphocytes % 16.8 D Monocytes % 13.1 H Eosinophils % 2.0 Basophils % 0.6 Nucleated RBC % 0 PTT (Actin FS) Sodium 150 H Potassium 3.6 Chloride 113 H Carbon Dioxide 33 H Anion Gap 4 L BUN 45.4 H Creatinine 1.4 H Est GFR (CKD-EPI)AfAm 63.29 Est GFR (CKD-EPI)NonAf 54.60 Random Glucose 120 H Calcium 9.5 Phosphorus 3.0 Magnesium 2.5 H Total Bilirubin 2.2 H AST 75 H ALT 66 H Alkaline Phosphatase 135 H Creatine Kinase 333 H 224 Creatine Kinase Index 1.2 1.0 CK-MB (CK-2) 4.0 H 2.4 Troponin I 18.50 H* Total Protein 7.3 Albumin 2.8 L 01/30/19 05:20 WBC RBC Hgb Hct MCV MCH MCHC RDW Plt Count MPV Absolute Neuts (auto) Neutrophils % Lymphocytes % Monocytes % Eosinophils % Basophils % Nucleated RBC % PTT (Actin FS) 30.9 Sodium Potassium Chloride Carbon Dioxide Anion Gap BUN Creatinine Est GFR (CKD-EPI)AfAm Est GFR (CKD-EPI)NonAf Random Glucose Calcium Phosphorus Magnesium Total Bilirubin AST ALT Alkaline Phosphatase Creatine Kinase Creatine Kinase Index CK-MB (CK-2) Troponin I Total Protein Albumin ASSESSMENT AND PLAN: Acute Hypoxic and Hypercapneic Respiratory Failure Acute on Chronic Systolic Heart Failure Acute Pulmonary Edema Hypertensive Urgency Pneumonia Sepsis Lactic Acidosis Elevated LFTs FABRICIO Smoker Resolved Delerium Lasix Follow Renal function O2 as needed Aspiration precautions Eliquis BB and CCB as per Cards Monitor urine output, creatinine ABX per ID Cardiac Telemetry monitoring Dr Dillard
[2019-01-30] MEDS ORDERED: POTASSIUM CHLORIDE TABS 20 MEQ TABLET.ER (FP) PO ONE (11:45)
--- NOTE | 2019-01-30 13:36 | PN ---
Physical Exam: SUBJECTIVE: Patient seen and examined at the bedside. Patient was awake and alert today. Oriented x2, not to time. Understood his diagnosis and why he was here. Denied any cp, sob, abd pain, n/v, fever, chills, numbness, tingling, weakness. Stated that he was hungry and wanted to eat. OBJECTIVE: Vital Signs Period Temp Pulse Resp BP Sys/Rosado Pulse Ox Last 24 Hr 98 F-98.8 F 77-99 13-19 123-170/102-120 98-98 GENERAL: Awake and alert and oriented HEENT: NC/AT, TYLER, sclera anicteric NECK: No JVD appreciated LUNGS: Improved breath sounds CTA b/l, no rales or rhonchi. HEART: RRR, S1, S2 without murmur ABDOMEN: Soft, NT/ND, normoactive bowel sounds, no guarding, no suprapubic fullness, no edema noted EXTREMITIES: 2+ DP pulses, warm, well-perfused, no edema. SKIN: Warm, dry, normal turgor, no rashes or lesions noted Laboratory Results - last 24 hr 01/27/19 01/28/19 01/29/19 05:25 05:55 06:05 WBC RBC Hgb Hct MCV MCH MCHC RDW Plt Count MPV Absolute Neuts (auto) Neutrophils % Lymphocytes % Monocytes % Eosinophils % Basophils % Nucleated RBC % PTT (Actin FS) Sodium 142 147 H 150 H Potassium 3.7 3.2 L 3.4 L Chloride 105 113 H 113 H Carbon Dioxide 30 27 29 Anion Gap 7 L 7 L 7 L BUN 51.8 H 40.1 H 37.6 H Creatinine 2.0 H 1.5 H 1.3 Est GFR (CKD-EPI)AfAm 41.12 58.22 69.22 Est GFR (CKD-EPI)NonAf 35.48 50.23 59.72 Random Glucose 96 100 107 H Calcium 8.3 L 8.3 L 8.8 Phosphorus 4.9 Magnesium 2.4 2.2 2.4 Total Bilirubin 1.5 H 1.7 H 2.3 H AST 29 39 H 78 H ALT 30 32 46 Alkaline Phosphatase 73 93 111 Creatine Kinase 851 H 890 H 698 H Creatine Kinase Index 1.3 CK-MB (CK-2) 9.5 H Troponin I 0.19 H 19.20 H* Total Protein 6.2 L 6.6 7.2 Albumin 2.4 L 2.5 L 2.8 L 01/29/19 01/29/19 01/29/19 11:18 15:00 20:15 WBC RBC Hgb Hct MCV MCH MCHC RDW Plt Count MPV Absolute Neuts (auto) Neutrophils % Lymphocytes % Monocytes % Eosinophils % Basophils % Nucleated RBC % PTT (Actin FS) 28.4 30.8 Sodium Potassium Chloride Carbon Dioxide Anion Gap BUN Creatinine Est GFR (CKD-EPI)AfAm Est GFR (CKD-EPI)NonAf Random Glucose Calcium Phosphorus Magnesium Total Bilirubin AST ALT Alkaline Phosphatase Creatine Kinase 535 H Creatine Kinase Index 1.4 CK-MB (CK-2) 7.7 H Troponin I 21.00 H* Total Protein Albumin 01/29/19 01/30/19 01/30/19 20:15 05:20 05:20 WBC 7.2 RBC 3.49 L Hgb 9.3 L Hct 29.3 L MCV 83.9 MCH 26.7 MCHC 31.9 L RDW 14.9 Plt Count 253 MPV 7.7 Absolute Neuts (auto) 4.9 Neutrophils % 67.5 Lymphocytes % 16.8 D Monocytes % 13.1 H Eosinophils % 2.0 Basophils % 0.6 Nucleated RBC % 0 PTT (Actin FS) Sodium 150 H Potassium 3.6 Chloride 113 H Carbon Dioxide 33 H Anion Gap 4 L BUN 45.4 H Creatinine 1.4 H Est GFR (CKD-EPI)AfAm 63.29 Est GFR (CKD-EPI)NonAf 54.60 Random Glucose 120 H Calcium 9.5 Phosphorus 3.0 Magnesium 2.5 H Total Bilirubin 2.2 H AST 75 H ALT 66 H Alkaline Phosphatase 135 H Creatine Kinase 333 H 224 Creatine Kinase Index 1.2 1.0 CK-MB (CK-2) 4.0 H 2.4 Troponin I 18.50 H* Total Protein 7.3 Albumin 2.8 L 01/30/19 05:20 WBC RBC Hgb Hct MCV MCH MCHC RDW Plt Count MPV Absolute Neuts (auto) Neutrophils % Lymphocytes % Monocytes % Eosinophils % Basophils % Nucleated RBC % PTT (Actin FS) 30.9 Sodium Potassium Chloride Carbon Dioxide Anion Gap BUN Creatinine Est GFR (CKD-EPI)AfAm Est GFR (CKD-EPI)NonAf Random Glucose Calcium Phosphorus Magnesium Total Bilirubin AST ALT Alkaline Phosphatase Creatine Kinase Creatine Kinase Index CK-MB (CK-2) Troponin I Total Protein Albumin Active Medications Generic Name Dose Route Start Last Admin Trade Name Freq PRN Reason Stop Dose Admin Acetaminophen 1,000 mg 01/26/19 02:32 01/26/19 03:54 Ofirmev Injection - IVPB 1,000 mg Q6H PRN Administration FEVER Amlodipine Besylate 10 mg 01/29/19 19:15 01/30/19 10:06 Norvasc - PO 10 mg DAILY [facility] Administration Aspirin 81 mg 01/30/19 10:00 01/30/19 10:06 Asa - PO 81 mg DAILY [facility] Administration Atorvastatin Calcium 40 mg 01/29/19 22:00 01/29/19 21:19 Lipitor - PO 40 mg HS [facility] Administration Carvedilol 12.5 mg 01/30/19 22:00 Coreg - PO BID [facility] Chlorhexidine Gluconate 1 applic 01/23/19 22:00 01/29/19 21:18 Hibiclens For Decolonization - TP 1 applic HS [facility] Administration Clopidogrel Bisulfate 75 mg 01/30/19 10:00 01/30/19 10:06 Plavix - PO 75 mg DAILY [facility] Administration Furosemide 40 mg 01/27/19 10:00 01/29/19 09:28 Lasix Injection - IVPUSH 40 mg DAILY [facility] Administration Heparin Sodium (Porcine) 1,000 unit 01/29/19 13:47 Heparin - IVPUSH PRN PRN Heparin Heparin Sodium (Porcine) 5,000 unit 01/29/19 13:47 01/30/19 06:49 Heparin - IVPUSH 5,000 unit PRN PRN Administration Heparin Cefazolin Sodium 1 gm/ 50 mls @ 100 mls/hr 01/28/19 18:00 01/30/19 10:06 Dextrose IVPB 100 mls/hr Q8H-IV [facility] Administration Heparin Sodium/Dextrose 25,000 units in 500 mls @ 20 mls/hr 01/29/19 14:00 06:49 Heparin Infusion - IVPB 1,300 units/hr TITR [facility] 26 mls/hr Titration Protocol 1,000 UNITS/HR Labetalol HCl 10 mg 01/24/19 12:33 01/28/19 04:24 Normodyne Injection - IVPUSH 10 mg Q4H PRN Administration HYPERTENSION Morphine Sulfate 0.5 mg 01/29/19 09:28 01/30/19 03:16 Morphine Sulfate IVPUSH 0.5 mg Q4H PRN Administration PAIN LEVEL 7 - 10 Quetiapine Fumarate 50 mg 01/27/19 22:00 01/29/19 21:19 Seroquel - PO 50 mg HS [facility] Administration ASSESSMENT/PLAN: Chay Lopez is a 58 year old male with a PMHx of HFrEF, stable aortic aneurysm, FABRICIO, HTN, CAD s/p multiple caths admitted to the ICU for acute hypercapneic hypoxic repsiratory failure and hypertensive urgency. Acute hypercapneic hypoxic respiratory failure Acute Pulmonary Edema HFrEF, acute Congestive hepatopathy Acute on chronic renal failure Lactic Acidosis Hypertensive Urgency Neuro - awake and alert - head CT within normal limits - likely from prolonged effects of sedation in the setting of high dosages and ESHA Cardiac - Pt currently on Coreg 12.5 - BP goal 140-150 SBP / 80-90 DBP - Troponin peaked 2/2 to demand from HTN and respiratory distress, peak at 0.38 - on 01/29, found with elevated troponin elevated to 19 trended up to 21, trended down, last 18 - Dr. Hodges consulted, recs appreciated - repeat EKGs with no acute changes - stop Elliquis - aspirin 81 daily - plavix 75mg daily - Lipitor increased to 40mg daily - heparin drip started, continue to monitor PTT - Echo reviewed and no change compared to previous in 05/2018, some impaired LV relaxation and hypokinesis of L ventricle, no pulmonary HTN - continue home lisinopril - norvasc 10mg daily - labetalol prn - Lasix held - cardio to decide when patient can go for cath vs stress test Respiratory - extubated - hold Lasix Renal - Acute on chronic renal insufficency now resolved with notable chronic dysfunction - FeUrea calculated at 56% in support of intrinisic injury that has occurred - ESHA, improving, today CRE 1.3 - potassium low in the setting of continued Lasix, now stopped - continue to monitor urine output Gastrointestinal - Congestive hepatopathy resolving; LFTs downtrending - NG tube removed - speech and swallow cleared patient for food and meds Infectious Disease - no WBC, no fevers, continue to monitor - sputum cultures showing E coli and Staph aureus - off abx currently - Dr. Martinez consulted, recs appreciated - close monitoring off abx FEN - Avoid fluids due to overload/pulm edema - continue to monitor electrolytes and replete as necessary - Regular diet, thin liquids Prophylaxis - on heparin drip Code - full code Lines - R wrist inserted 01/28 Dispo - stable for monitoring on telemetry CASE DISCUSSED WITH DR LIANNE HERNANDEZ DO PGY-1 Visit type - Emergency Visit Emergency Visit: No - New Patient This patient is new to me today: No - Critical Care Critical Care patient: No
--- NOTE | 2019-01-30 14:01 | PN ---
Progress Note, Physician History of Present Illness: patient looks much better calmer more with it ng tube removed breathing well - Current Medication List Current Medications: Active Medications Acetaminophen (Ofirmev Injection -) 1,000 mg IVPB Q6H PRN PRN Reason: FEVER Last Admin: 01/26/19 03:54 Dose: 1,000 mg Amlodipine Besylate (Norvasc -) 10 mg PO DAILY [facility] Last Admin: 01/30/19 10:06 Dose: 10 mg Aspirin (Asa -) 81 mg PO DAILY [facility] Last Admin: 01/30/19 10:06 Dose: 81 mg Atorvastatin Calcium (Lipitor -) 40 mg PO HS [facility] Last Admin: 01/29/19 21:19 Dose: 40 mg Carvedilol (Coreg -) 12.5 mg PO BID [facility] Chlorhexidine Gluconate (Hibiclens For Decolonization -) 1 applic TP HS [facility] Last Admin: 01/29/19 21:18 Dose: 1 applic Clopidogrel Bisulfate (Plavix -) 75 mg PO DAILY [facility] Last Admin: 01/30/19 10:06 Dose: 75 mg Furosemide (Lasix Injection -) 40 mg IVPUSH DAILY [facility] Last Admin: 01/29/19 09:28 Dose: 40 mg Heparin Sodium (Porcine) (Heparin -) 1,000 unit IVPUSH PRN PRN PRN Reason: Heparin Heparin Sodium (Porcine) (Heparin -) 5,000 unit IVPUSH PRN PRN PRN Reason: Heparin Last Admin: 01/30/19 06:49 Dose: 5,000 unit Cefazolin Sodium 1 gm/ (Dextrose) 50 mls @ 100 mls/hr IVPB Q8H-IV [facility] Last Admin: 01/30/19 10:06 Dose: 100 mls/hr Heparin Sodium/Dextrose (Heparin Infusion -) 25,000 units in 500 mls @ 20 mls/ hr IVPB TITR [facility]; Protocol Last Titration: 01/30/19 06:49 Dose: 1,300 units/hr, 26 mls/hr Labetalol HCl (Normodyne Injection -) 10 mg IVPUSH Q4H PRN PRN Reason: HYPERTENSION Last Admin: 01/28/19 04:24 Dose: 10 mg Morphine Sulfate (Morphine Sulfate) 0.5 mg IVPUSH Q4H PRN PRN Reason: PAIN LEVEL 7 - 10 Last Admin: 01/30/19 03:16 Dose: 0.5 mg Quetiapine Fumarate (Seroquel -) 50 mg PO HS [facility] Last Admin: 01/29/19 21:19 Dose: 50 mg - Objective Vital Signs: Vital Signs Temperature 98.2 F 01/30/19 10:00 Pulse Rate 99 H 01/30/19 10:00 Respiratory Rate 16 01/30/19 10:00 Blood Pressure 148/108 H 01/30/19 10:00 O2 Sat by Pulse Oximetry (%) 98 01/30/19 09:00 Constitutional: Yes: No Distress, Calm Cardiovascular: Yes: Regular Rate and Rhythm Respiratory: Yes: Regular, CTA Bilaterally Gastrointestinal: Yes: Normal Bowel Sounds, Soft Musculoskeletal: Yes: WNL Extremities: Yes: WNL Neurological: Yes: Alert, Other (still not completely oriented) Psychiatric: Yes: Alert Labs: CBC, BMP 01/30/19 05:20 01/30/19 05:20 INR, PTT INR 1.18 (0.83-1.09) H 01/23/19 10:30 - ....Imaging Chest X-ray: Report Reviewed, Image Reviewed Assessment/Plan - Problems (1) Acute on chronic systolic and diastolic heart failure, NYHA class 1 Code(s): I50.43 - ACUTE ON CHRONIC COMBINED SYSTOLIC AND DIASTOLIC HRT FAIL (2) Acute on chronic renal failure Code(s): N17.9 - ACUTE KIDNEY FAILURE, UNSPECIFIED; N18.9 - CHRONIC KIDNEY DISEASE, UNSPECIFIED Due to above, resume lisinopril once renal fxn stabilizes (3) Acute respiratory failure with hypoxia and hypercapnia Code(s): J96.01 - ACUTE RESPIRATORY FAILURE WITH HYPOXIA; J96.02 - ACUTE RESPIRATORY FAILURE WITH HYPERCAPNIA (4) Elevated liver enzymes Code(s): R74.8 - ABNORMAL LEVELS OF OTHER SERUM ENZYMES Hepatic congestion, LFTs downtrending (5) Hypertensive emergency Code(s): I16.1 - HYPERTENSIVE EMERGENCY (6) Elevated troponin Code(s): R74.8 - ABNORMAL LEVELS OF OTHER SERUM ENZYMES (7) Paroxysmal afib with RVR I48.0 (8) PNA plan continue abx nutrition rest as per icu improving cc 40 min
[2019-01-30] MEDS: HEPARIN INFUSION - 25,000 UNITS/500 ML INFUS.BAG IVPB SCH (15:04)
--- NOTE | 2019-01-30 18:48 | HOSP ---
Physical Examination Vital Signs: Vital Signs Temperature 98.2 F 01/30/19 18:00 Pulse Rate 104 H 01/30/19 18:00 Respiratory Rate 22 H 01/30/19 18:00 Blood Pressure 146/100 01/30/19 18:00 O2 Sat by Pulse Oximetry (%) 98 01/30/19 09:00 Labs: CBC, BMP 01/30/19 05:20 01/30/19 05:20 Hospitalist Encounter Assessment: EKG done at bedside No acute changes. No ST abnormalities. PVCs noted QTc 514. Will review medications for any QTc prolonging agents. No c/o chest pain. Cardiology following.WIll mainatin on telemetry Critical Care Total Critical Care Time (in minutes): 10
[2019-01-30] MEDS: ATORVASTATIN CA 40 MG TABLET (FP) PO SCH (21:45)
[2019-01-30] MEDS: QUEtiapine FUMARATE 50 MG TABLET PO SCH (21:45)
[2019-01-30] MEDS: CHLORHEXIDINE GLUCONATE 4% CLEANSER FOR DECOLONIZATION TP SCH (21:45)
[2019-01-30] MEDS: CARVEDILOL 12.5 MG TABLET (FP) PO SCH (21:45)
[2019-01-30] MEDS: LABETALOL HCL 5 MG/1 ML (100MG/20 ML VIAL) IVPUSH PRN (22:57)
[2019-01-31] MEDS: HEPARIN NA (PORCINE) 5,000 UNITS/ML 1ML VIAL IVPUSH PRN ×2 (01:25→07:30)
[2019-01-31] MEDS: CEFAZOLIN 1 GM in DEXTROSE 5%-WATER - 50 ML IVPB SCH ×2 (01:29→10:42)
[2019-01-31 06:51] LABS: BASO % 0.5 % (0-2.0); EOS % 1.6 % (0-4.5); HEMATOCRIT 27.2 % (35.4-49); HEMOGLOBIN 8.8 GM/dL (11.7-16.9); LYMPH % 29.8 % (8-40); MCH 27.2 pg (25.7-33.7); MCHC 32.5 g/dl (32.0-35.9); MEAN CELL VOLUME 83.7 fl (80-96); MEAN PLT VOLUME 7.8 fl (7.5-11.1); MONO % 15.8 % (3.8-10.2); NEUT % 52.3 % (42.8-82.8); PLATELET COUNT 267 K/MM3 (134-434); RBC 3.25 M/mm3 (4.00-5.60); RDW 15.1 % (11.9-15.9); WHITE BLOOD COUNT 6.6 K/mm3 (4.0-10.0)
[2019-01-31 07:40] LABS: ALBUMIN 2.7 g/dl (3.4-5.0); BILIRUBIN,TOTAL 1.1 mg/dL (0.2-1); BLOOD UREA NITROGEN 39.9 mg/dL (7-18); CALCIUM 9.1 mg/dL (8.5-10.1); CREATININE 1.4 mg/dL (0.55-1.3); MAGNESIUM 2.1 mg/dL (1.8-2.4); PHOSPHOROUS 3.6 mg/dL (2.5-4.9); POTASSIUM 3.6 mmol/L (3.5-5.1); TOT PROT 6.7 g/dl (6.4-8.2)
[2019-01-31] MEDS ORDERED: POTASSIUM CHLORIDE TABS 20 MEQ TABLET.ER (FP) PO ONE ×2 (07:41→08:29)
--- NOTE | 2019-01-31 08:20 | PN ---
Progress Note, Physician Chief Complaint: Brought in by EMS for respiratory distress-intubated in field. History of Present Illness: History of Present Illness: Patient is a 58 year old male with a significant past medical history of diastolic CHF, aortic aneurysm (w/mild dilation), FABRICIO, HTN, nonobstructive CAD ( multiple caths done at other tertiary care centers), past hx lithotripsy for left nephrolithiasis, active smoker. He presents to [facility] ED for acute respiratory failure. Patient was intubated in the field after he experienced three days of respiratory difficulty. EMS brought him in while intubated, sedated after he was in acute respiratory failure with no audible lung sounds. On arrival he was also noted to have hypertensive emergency 238/185, tachycardic 130s and hypothermic (96.1f). His ABGs show acute respiratory hypercapneic failure. He was place on a Nitroglycerine drip for hypertensive emergency and given vasotec IV with improvement of his BP. Lasix 40mg x 1 push given, and he was started on propofol. imaging: head ct 01/23/19: negative for acute process ekg 01/23/19 - sinus tachycardia, left atrial enlargement chest xray 01/23/19 - large heart, congestive changes, possible retricardio inf ED course notable for: hypertensive emergency:238/185, hr 139, 96.1F + marijuana screen, otherwise negaive tox lactic acid 5.3 creatinine 2.4/bun 25.9 bnp 5680 trop + 0.25, trending q 6 hrs presents intubated in the field - Current Medication List Current Medications: Active Medications Acetaminophen (Ofirmev Injection -) 1,000 mg IVPB Q6H PRN PRN Reason: FEVER Last Admin: 01/26/19 03:54 Dose: 1,000 mg Amlodipine Besylate (Norvasc -) 10 mg PO DAILY [facility] Last Admin: 01/30/19 10:06 Dose: 10 mg Aspirin (Asa -) 81 mg PO DAILY [facility] Last Admin: 01/30/19 10:06 Dose: 81 mg Atorvastatin Calcium (Lipitor -) 40 mg PO HS [facility] Last Admin: 01/30/19 21:45 Dose: 40 mg Carvedilol (Coreg -) 12.5 mg PO BID [facility] Last Admin: 01/30/19 21:45 Dose: 12.5 mg Chlorhexidine Gluconate (Hibiclens For Decolonization -) 1 applic TP HS [facility] Last Admin: 01/30/19 21:45 Dose: 1 applic Clopidogrel Bisulfate (Plavix -) 75 mg PO DAILY [facility] Last Admin: 01/30/19 10:06 Dose: 75 mg Furosemide (Lasix Injection -) 40 mg IVPUSH DAILY [facility] Last Admin: 01/29/19 09:28 Dose: 40 mg Heparin Sodium (Porcine) (Heparin -) 1,000 unit IVPUSH PRN PRN PRN Reason: Heparin Heparin Sodium (Porcine) (Heparin -) 5,000 unit IVPUSH PRN PRN PRN Reason: Heparin Last Admin: 01/31/19 01:25 Dose: 5,000 unit Cefazolin Sodium 1 gm/ (Dextrose) 50 mls @ 100 mls/hr IVPB Q8H-IV [facility] Last Admin: 01/31/19 01:29 Dose: 100 mls/hr Heparin Sodium/Dextrose (Heparin Infusion -) 25,000 units in 500 mls @ 20 mls/ hr IVPB TITR [facility]; Protocol Last Titration: 01/31/19 01:25 Dose: 1,600 units/hr, 32 mls/hr Labetalol HCl (Normodyne Injection -) 10 mg IVPUSH Q4H PRN PRN Reason: HYPERTENSION Last Admin: 01/30/19 22:57 Dose: 10 mg Lisinopril (Prinivil) 5 mg PO DAILY [facility] Morphine Sulfate (Morphine Sulfate) 0.5 mg IVPUSH Q4H PRN PRN Reason: PAIN LEVEL 7 - 10 Last Admin: 01/30/19 03:16 Dose: 0.5 mg Quetiapine Fumarate (Seroquel -) 50 mg PO [facility] Last Admin: 01/30/19 21:45 Dose: 50 mg - Objective Vital Signs: Vital Signs Temperature 98.1 F 01/31/19 06:00 Pulse Rate 86 01/31/19 06:00 Respiratory Rate 20 01/31/19 06:00 Blood Pressure 150/102 H 01/31/19 06:00 O2 Sat by Pulse Oximetry (%) 98 01/30/19 20:28 Constitutional: Yes: Well Nourished, No Distress, Calm Eyes: Yes: WNL, Conjunctiva Clear, EOM Intact HENT: Yes: WNL, Atraumatic, Normocephalic Neck: Yes: WNL, Supple, Trachea Midline Cardiovascular: Yes: WNL, Pulse Irregular Respiratory: Yes: WNL, Regular, CTA Bilaterally Gastrointestinal: Yes: WNL, Normal Bowel Sounds, Soft ...Rectal Exam: Yes: Deferred Genitourinary: Yes: WNL Breast(s): Yes: WNL Musculoskeletal: Yes: WNL Extremities: Yes: WNL Edema: No Peripheral Pulses WNL: Yes Integumentary: Yes: WNL Neurological: Yes: WNL, Alert, Oriented ...Motor Strength: WNL Psychiatric: Yes: WNL, Alert, Oriented Labs: CBC, BMP 01/31/19 05:50 01/31/19 05:50 INR, PTT INR 1.18 (0.83-1.09) H 01/23/19 10:30 - ....Imaging Chest X-ray: Image Reviewed Problem List - Problems (1) Acute metabolic encephalopathy Assessment/Plan: resolved avoid any sedating agents frequent re-orientation and family visitation Code(s): G93.41 - METABOLIC ENCEPHALOPATHY (2) Acute respiratory failure with hypoxia and hypercapnia Assessment/Plan: extubated tuesday and remains extubated, not requiring O2 pulse oximetry , maintain O2 sta >92% with supplemental O2 prn Code(s): J96.01 - ACUTE RESPIRATORY FAILURE WITH HYPOXIA; J96.02 - ACUTE RESPIRATORY FAILURE WITH HYPERCAPNIA (3) Eerdv-ur-xqncnim renal failure Assessment/Plan: Cr last week 2.4, trending down to 1.4 lasix started today continue to trend Cr avoid all nephrotoxic agents c/w lisinipril plan for cardiac cath when Cr stabalizes Code(s): N17.9 - ACUTE KIDNEY FAILURE, UNSPECIFIED; N18.9 - CHRONIC KIDNEY DISEASE, UNSPECIFIED (4) Elevated liver enzymes Assessment/Plan: monitor LFTs avoid any hepatotoxic agents Code(s): R74.8 - ABNORMAL LEVELS OF OTHER SERUM ENZYMES (5) Elevated troponin Assessment/Plan: Trop 19.2/21/18.5/14.8 currently no c/o chest pain serial EKGs will continue to trend c/w telemetry cardiology following c/w asa possible cardiac cath in near future Code(s): R74.8 - ABNORMAL LEVELS OF OTHER SERUM ENZYMES (6) Paroxysmal A-fib Assessment/Plan: in SR with occosional PVCs, no PACs noted c/w cardiac monitoring Code(s): I48.0 - PAROXYSMAL ATRIAL FIBRILLATION (7) Prophylactic measure Assessment/Plan: FEN cardiac diet no additional IVF needed daily CMP DVT on heparin gtt for NSTEMI Dispo transfer to telemetry from ICU appreciate ICU level of care full code discharge planning Code(s): Z29.9 - ENCOUNTER FOR PROPHYLACTIC MEASURES, UNSPECIFIED (8) Hypertensive emergency Assessment/Plan: c/w increased dose of carvedilol 12.5 mg bid c/w on amlodipine Improving renal function: ACEI restarted continue to hold furosemide Code(s): I16.1 - HYPERTENSIVE EMERGENCY Visit type - Emergency Visit Emergency Visit: Yes ED Registration Date: 01/23/19 Care time: The patient presented to the Emergency Department on the above date and was hospitalized for further evaluation of their emergent condition. - New Patient This patient is new to me today: No - Critical Care Critical Care patient: Yes Total Critical Care Time (in minutes): 30 Critical Care Statement: The care of this patient involved high complexity decision making to prevent further life threatening deterioration of the patient 's condition and/or to evaluate & treat vital organ system(s) failure or risk of failure. - Discharge Referral Referred to [facility] No
[2019-01-31] MEDS ORDERED: LISINOPRIL 5 MG TABLET (FP) PO SCH (10:00)
[2019-01-31] MEDS ORDERED: ceFAZolin SODIUM 1 GM VIAL ONE (10:20)
[2019-01-31] MEDS ORDERED: DEXTROSE 5%-WATER - 50 ML IVPB ONE (10:20)
[2019-01-31] MEDS: CARVEDILOL 12.5 MG TABLET (FP) PO SCH ×2 (10:42→21:50)
[2019-01-31] MEDS: FUROSEMIDE 40 MG/4 ML INJECTABLE VIAL IVPUSH SCH (10:42)
[2019-01-31] MEDS: CLOPIDOGREL BISULFATE 75 MG TABLET (FP) PO SCH (10:42)
[2019-01-31] MEDS: amLODIPine BESYLATE 10 MG TABLET (FP) PO SCH (10:42)
[2019-01-31] MEDS: ASPIRIN 81 MG CHEWABLE TABLETS PO SCH (10:42)
--- NOTE | 2019-01-31 10:51 | EKG ---
Test Reason : Blood Pressure : / mmHG Vent. Rate : 089 BPM Atrial Rate : 089 BPM P-R Int : 162 ms QRS Dur : 096 ms QT Int : 414 ms P-R-T Axes : 036 026 130 degrees QTc Int : 503 ms SINUS RHYTHM WITH PREMATURE ATRIAL COMPLEXES WITH ABERRANT CONDUCTION LEFT VENTRICULAR HYPERTROPHY WITH REPOLARIZATION ABNORMALITY PROLONGED QT ABNORMAL ECG WHEN COMPARED WITH ECG OF 30-JAN-2019 10:16, NO SIGNIFICANT CHANGE WAS FOUND Confirmed by ADALID DUARTE, JAIME ([id number]) on 01/31/2019 10:50:48 AM Referred By: REG Pedro DR Confirmed By:JAIME CORDOBA MD
--- NOTE | 2019-01-31 11:49 | PN ---
Progress Note, [employer] - Note Progress Note: Ambulatory. Tolerating reg diet/thin liquids. Selected Entries 01/30/19 01/30/19 01/31/19 19:00 22:00 02:00 Supper 100% 100% Temperature 97.8 F 01/31/19 06:00 Supper Temperature 98.1 F Laboratory Tests 01/31/19 05:50 WBC 6.6
--- NOTE | 2019-01-31 11:50 | PN ---
Physical Exam: SUBJECTIVE: Patient seen and examined at the bedside. Stated he was doing well and had a lot of energy. Was thankful that he feeling better. Understood about his cardiac enzymes were elevated and would need further investigation. Denied cp, sob, abd pain, fever, chills, n/v/c/d, weakness, numbness, headaches, dizziness, lightheadedness. OBJECTIVE: Vital Signs Period Temp Pulse Resp BP Sys/Rosado Pulse Ox Last 24 Hr 97.8 F-98.6 F 74-104 9-22 128-150/93-113 98-98 GENERAL: Awake and alert and oriented HEENT: NC/AT, TYLER, sclera anicteric NECK: No JVD appreciated LUNGS: Improved breath sounds CTA b/l, no rales or rhonchi. HEART: RRR, S1, S2 without murmur ABDOMEN: Soft, NT/ND, normoactive bowel sounds, no guarding, no suprapubic fullness, no edema noted EXTREMITIES: 2+ DP pulses, warm, well-perfused, no edema. SKIN: Warm, dry, normal turgor, no rashes or lesions noted Laboratory Results - last 24 hr 01/27/19 01/28/19 01/29/19 05:25 05:55 06:05 WBC RBC Hgb Hct MCV MCH MCHC RDW Plt Count MPV Absolute Neuts (auto) Neutrophils % Lymphocytes % Monocytes % Eosinophils % Basophils % Nucleated RBC % PTT (Actin FS) Sodium 142 147 H 150 H Potassium 3.7 3.2 L 3.4 L Chloride 105 113 H 113 H Carbon Dioxide 30 27 29 Anion Gap 7 L 7 L 7 L BUN 51.8 H 40.1 H 37.6 H Creatinine 2.0 H 1.5 H 1.3 Est GFR (CKD-EPI)AfAm 41.12 58.22 69.22 Est GFR (CKD-EPI)NonAf 35.48 50.23 59.72 Random Glucose 96 100 107 H Calcium 8.3 L 8.3 L 8.8 Phosphorus 4.9 Magnesium 2.4 2.2 2.4 Total Bilirubin 1.5 H 1.7 H 2.3 H AST 29 39 H 78 H ALT 30 32 46 Alkaline Phosphatase 73 93 111 Creatine Kinase 851 H 890 H 698 H Creatine Kinase Index 0.2 0.1 1.3 CK-MB (CK-2) 2.3 1.0 9.5 H Troponin I 0.19 H 19.20 H* Total Protein 6.2 L 6.6 7.2 Albumin 2.4 L 2.5 L 2.8 L 01/29/19 01/30/19 01/30/19 11:18 14:00 16:35 WBC RBC Hgb Hct MCV MCH MCHC RDW Plt Count MPV Absolute Neuts (auto) Neutrophils % Lymphocytes % Monocytes % Eosinophils % Basophils % Nucleated RBC % PTT (Actin FS) 30.4 Sodium Potassium Chloride Carbon Dioxide Anion Gap BUN Creatinine Est GFR (CKD-EPI)AfAm Est GFR (CKD-EPI)NonAf Random Glucose Calcium Phosphorus Magnesium Total Bilirubin AST ALT Alkaline Phosphatase Creatine Kinase 535 H Creatine Kinase Index 1.4 CK-MB (CK-2) 7.7 H Troponin I 21.00 H* 14.80 H* Total Protein Albumin 01/30/19 01/31/19 01/31/19 21:00 05:50 05:50 WBC 6.6 RBC 3.25 L Hgb 8.8 L Hct 27.2 L MCV 83.7 MCH 27.2 MCHC 32.5 RDW 15.1 Plt Count 267 MPV 7.8 Absolute Neuts (auto) 3.4 Neutrophils % 52.3 D Lymphocytes % 29.8 D Monocytes % 15.8 H Eosinophils % 1.6 Basophils % 0.5 Nucleated RBC % 0 PTT (Actin FS) 31.7 Sodium 144 Potassium 3.6 Chloride 107 Carbon Dioxide 29 Anion Gap 8 BUN 39.9 H Creatinine 1.4 H Est GFR (CKD-EPI)AfAm 63.29 Est GFR (CKD-EPI)NonAf 54.60 Random Glucose 103 Calcium 9.1 Phosphorus 3.6 Magnesium 2.1 Total Bilirubin 1.1 H AST 50 H ALT 65 H Alkaline Phosphatase 119 H Creatine Kinase Creatine Kinase Index CK-MB (CK-2) Troponin I Total Protein 6.7 Albumin 2.7 L 01/31/19 05:50 WBC RBC Hgb Hct MCV MCH MCHC RDW Plt Count MPV Absolute Neuts (auto) Neutrophils % Lymphocytes % Monocytes % Eosinophils % Basophils % Nucleated RBC % PTT (Actin FS) 38.6 H Sodium Potassium Chloride Carbon Dioxide Anion Gap BUN Creatinine Est GFR (CKD-EPI)AfAm Est GFR (CKD-EPI)NonAf Random Glucose Calcium Phosphorus Magnesium Total Bilirubin AST ALT Alkaline Phosphatase Creatine Kinase Creatine Kinase Index CK-MB (CK-2) Troponin I Total Protein Albumin Active Medications Generic Name Dose Route Start Last Admin Trade Name Freq PRN Reason Stop Dose Admin Acetaminophen 1,000 mg 01/26/19 02:32 01/26/19 03:54 Ofirmev Injection - IVPB 1,000 mg Q6H PRN Administration FEVER Amlodipine Besylate 10 mg 01/29/19 19:15 01/31/19 10:42 Norvasc - PO 10 mg DAILY [facility] Administration Aspirin 81 mg 01/30/19 10:00 01/31/19 10:42 Asa - PO 81 mg DAILY [facility] Administration Atorvastatin Calcium 40 mg 01/29/19 22:00 01/30/19 21:45 Lipitor - PO 40 mg HS [facility] Administration Carvedilol 12.5 mg 01/30/19 22:00 01/31/19 10:42 Coreg - PO 12.5 mg BID [facility] Administration Chlorhexidine Gluconate 1 applic 01/23/19 22:00 01/30/19 21:45 Hibiclens For Decolonization - TP 1 applic HS [facility] Administration Clopidogrel Bisulfate 75 mg 01/30/19 10:00 01/31/19 10:42 Plavix - PO 75 mg DAILY [facility] Administration Furosemide 40 mg 01/27/19 10:00 01/31/19 10:42 Lasix Injection - IVPUSH 40 mg DAILY [facility] Administration Heparin Sodium (Porcine) 1,000 unit 01/29/19 13:47 Heparin - IVPUSH PRN PRN Heparin Heparin Sodium (Porcine) 5,000 unit 01/29/19 13:47 01/31/19 07:30 Heparin - IVPUSH 5,000 unit PRN PRN Administration Heparin Cefazolin Sodium 1 gm/ 50 mls @ 100 mls/hr 01/28/19 18:00 01/31/19 10:42 Dextrose IVPB 100 mls/hr Q8H-IV [facility] Administration Heparin Sodium/Dextrose 25,000 units in 500 mls @ 20 mls/hr 01/29/19 14:00 07:00 Heparin Infusion - IVPB 1,750 units/hr TITR [facility] 35 mls/hr Titration Protocol 1,000 UNITS/HR Labetalol HCl 10 mg 01/24/19 12:33 01/30/19 22:57 Normodyne Injection - IVPUSH 10 mg Q4H PRN Administration HYPERTENSION Lisinopril 5 mg 01/31/19 10:00 01/31/19 10:42 Prinivil PO 5 mg DAILY [facility] Administration Morphine Sulfate 0.5 mg 01/29/19 09:28 01/30/19 03:16 Morphine Sulfate IVPUSH 0.5 mg Q4H PRN Administration PAIN LEVEL 7 - 10 Quetiapine Fumarate 50 mg 01/27/19 22:00 01/30/19 21:45 Seroquel - PO 50 mg HS [facility] Administration ASSESSMENT/PLAN: Chay Lopez is a 58 year old male with a PMHx of HFrEF, stable aortic aneurysm, FABRICIO, HTN, CAD s/p multiple caths admitted to the ICU for acute hypercapneic hypoxic repsiratory failure and hypertensive urgency. Acute hypercapneic hypoxic respiratory failure Acute Pulmonary Edema HFrEF, acute Congestive hepatopathy Acute on chronic renal failure Lactic Acidosis Hypertensive Urgency Neuro - awake and alert - head CT within normal limits Cardiac - Dr. Hodges consulted, recs appreciated - Troponin peaked 2/2 to demand from HTN and respiratory distress, peak at 0.38 - on 01/29, found with elevated troponin elevated to 19 trended up to 21, trended down, last 14 - repeat EKGs with no acute changes - Echo reviewed and no change compared to previous in 05/2018, some impaired LV relaxation and hypokinesis of L ventricle, no pulmonary HTN - Pt currently on Coreg 12.5mg bid - started lisinopril 5mg daily - norvasc 10mg daily - labetalol prn - Lasix 40mg PO daily - BP goal 140-150 SBP / 80-90 DBP - aspirin 81 daily - plavix 75mg daily - Lipitor 40mg daily - heparin drip started, continue to monitor PTT - cardio to decide when patient can go for cath vs stress test Respiratory - extubated - satting well on RA Renal - Acute on chronic renal insufficency now resolved with notable chronic dysfunction - FeUrea calculated at 56% in support of intrinisic injury that has occurred - ESHA, improving, today CRE 1.4 - switch to Lasix 40mg PO - continue to monitor urine output Gastrointestinal - Congestive hepatopathy resolving; LFTs downtrending - speech and swallow cleared patient for food and meds Infectious Disease - no WBC, no fevers, continue to monitor - sputum cultures showing E coli and Staph aureus - cefazolin day 4 - Dr. Martinez consulted, recs appreciated FEN - Avoid fluids due to overload/pulm edema - continue to monitor electrolytes and replete as necessary - Regular diet, thin liquids Prophylaxis - on heparin drip Code - full code Lines - R wrist inserted 01/28 - R forearm inserted 01/29 Dispo - stable for monitoring on telemetry CASE DISCUSSED WITH DR LIANNE HERNANDEZ DO PGY-1 Visit type - Emergency Visit Emergency Visit: No - New Patient This patient is new to me today: No - Critical Care Critical Care patient: No
--- NOTE | 2019-01-31 11:55 | PN ---
Progress Note, Physician - Current Medication List Current Medications: Active Medications Acetaminophen (Ofirmev Injection -) 1,000 mg IVPB Q6H PRN PRN Reason: FEVER Last Admin: 01/26/19 03:54 Dose: 1,000 mg Amlodipine Besylate (Norvasc -) 10 mg PO DAILY [facility] Last Admin: 01/31/19 10:42 Dose: 10 mg Aspirin (Asa -) 81 mg PO DAILY [facility] Last Admin: 01/31/19 10:42 Dose: 81 mg Atorvastatin Calcium (Lipitor -) 40 mg PO HS [facility] Last Admin: 01/30/19 21:45 Dose: 40 mg Carvedilol (Coreg -) 12.5 mg PO BID [facility] Last Admin: 01/31/19 10:42 Dose: 12.5 mg Chlorhexidine Gluconate (Hibiclens For Decolonization -) 1 applic TP HS [facility] Last Admin: 01/30/19 21:45 Dose: 1 applic Clopidogrel Bisulfate (Plavix -) 75 mg PO DAILY [facility] Last Admin: 01/31/19 10:42 Dose: 75 mg Furosemide (Lasix Injection -) 40 mg IVPUSH DAILY [facility] Last Admin: 01/31/19 10:42 Dose: 40 mg Heparin Sodium (Porcine) (Heparin -) 1,000 unit IVPUSH PRN PRN PRN Reason: Heparin Heparin Sodium (Porcine) (Heparin -) 5,000 unit IVPUSH PRN PRN PRN Reason: Heparin Last Admin: 01/31/19 07:30 Dose: 5,000 unit Cefazolin Sodium 1 gm/ (Dextrose) 50 mls @ 100 mls/hr IVPB Q8H-IV [facility] Last Admin: 01/31/19 10:42 Dose: 100 mls/hr Heparin Sodium/Dextrose (Heparin Infusion -) 25,000 units in 500 mls @ 20 mls/ hr IVPB TITR [facility]; Protocol Last Titration: 01/31/19 07:00 Dose: 1,750 units/hr, 35 mls/hr Labetalol HCl (Normodyne Injection -) 10 mg IVPUSH Q4H PRN PRN Reason: HYPERTENSION Last Admin: 01/30/19 22:57 Dose: 10 mg Lisinopril (Prinivil) 5 mg PO DAILY [facility] Last Admin: 01/31/19 10:42 Dose: 5 mg Morphine Sulfate (Morphine Sulfate) 0.5 mg IVPUSH Q4H PRN PRN Reason: PAIN LEVEL 7 - 10 Last Admin: 01/30/19 03:16 Dose: 0.5 mg Quetiapine Fumarate (Seroquel -) 50 mg PO HS [facility] Last Admin: 01/30/19 21:45 Dose: 50 mg - Objective Vital Signs: Vital Signs Temperature 98.1 F 01/31/19 06:00 Pulse Rate 86 01/31/19 06:00 Respiratory Rate 20 01/31/19 06:00 Blood Pressure 150/102 H 01/31/19 06:00 O2 Sat by Pulse Oximetry (%) 98 01/30/19 20:28 Eyes: Yes: WNL, Conjunctiva Clear, EOM Intact HENT: Yes: WNL, Atraumatic, Normocephalic Neck: Yes: WNL, Supple, Trachea Midline Cardiovascular: Yes: WNL, Regular Rate and Rhythm Respiratory: Yes: WNL, Regular, CTA Bilaterally Gastrointestinal: Yes: WNL, Normal Bowel Sounds Genitourinary: Yes: WNL Musculoskeletal: Yes: WNL Extremities: Yes: WNL Edema: No Integumentary: Yes: WNL Neurological: Yes: WNL, Alert, Oriented ...Motor Strength: WNL Psychiatric: Yes: WNL Labs: CBC, BMP 01/31/19 05:50 01/31/19 05:50 INR, PTT INR 1.18 (0.83-1.09) H 01/23/19 10:30 Assessment/Plan - Problems (1) Acute on chronic systolic and diastolic heart failure, NYHA class 1 Assessment/Plan: On carvedilol and furosemide. Start ACEI as renal function improves for CHF, HTN, NSTEMI. Code(s): I50.43 - ACUTE ON CHRONIC COMBINED SYSTOLIC AND DIASTOLIC HRT FAIL (2) Acute on chronic renal failure Code(s): N17.9 - ACUTE KIDNEY FAILURE, UNSPECIFIED; N18.9 - CHRONIC KIDNEY DISEASE, UNSPECIFIED (3) Acute respiratory failure with hypoxia and hypercapnia Code(s): J96.01 - ACUTE RESPIRATORY FAILURE WITH HYPOXIA; J96.02 - ACUTE RESPIRATORY FAILURE WITH HYPERCAPNIA (4) Elevated liver enzymes Code(s): R74.8 - ABNORMAL LEVELS OF OTHER SERUM ENZYMES (5) Hypertensive emergency Assessment/Plan: stable on Increased carvedilol to 12.5 mg bid. On furosemide. Plan to start ACEI. F/u BP and HR serially. Code(s): I16.1 - HYPERTENSIVE EMERGENCY (6) Elevated troponin Assessment/Plan: Developed NSTEMI: Pt's TNI increased to >21 on 01/28/2019; now 18.5. EKG 01/29/19: NSR: LVH with repolarization changes no comparative acute STT changes. F/u EKG today. On ASA, clopidogrel, IV heparin. On high-dose statin. BP control is essential; carvedilol increased today to 12.5 mg bid; on amlodipine, furosemide (guard against over-diuresis). Improving renal function: consider starting ACEI for HTN, CHF, CAD. Plan for coronary artery evaluation. Code(s): R74.8 - ABNORMAL LEVELS OF OTHER SERUM ENZYMES (7) Tobacco abuse Assessment/Plan: Pt says he stopped years ago; was also smoking a pipe. Smokes marijuana. Code(s): Z72.0 - TOBACCO USE (8) NSTEMI (non-ST elevated myocardial infarction) Assessment/Plan: Please see under "elevated troponin". Code(s): I21.4 - NON-ST ELEVATION (NSTEMI) MYOCARDIAL INFARCTION Assessment/Plan CCU time spent: 35 minutes.
--- NOTE | 2019-01-31 12:22 | PN ---
Teaching Attending Note Name of Resident: Jose Reeder ATTENDING PHYSICIAN STATEMENT I saw and evaluated the patient. I reviewed the resident's note and discussed the case with the resident. I agree with the resident's findings and plan as documented. SUBJECTIVE: Patient seen and examined in the ICU. Awake and alert. Troponins are down trending. Denies CP or SOB. Clinical history of snoring, EDS, and possible witnessed apneas by his . Intake & Output 01/28/19 01/29/19 01/30/19 01/31/19 23:59 23:59 23:59 23:59 Intake Total 166 250 5209 922 Output Total 3400 2700 750 Balance -2950 -1835 566 922 Weight 208 lb 1 oz 193 lb 6 oz 192 lb 4 oz 193 lb Last Vital Signs Temp Pulse Resp BP Pulse Ox 98.2 F 90 22 H 150/72 100 01/31/19 10:00 01/31/19 12:00 01/31/19 12:00 01/31/19 12:00 01/31/19 09:00 Active Medications Acetaminophen (Ofirmev Injection -) 1,000 mg IVPB Q6H PRN PRN Reason: FEVER Last Admin: 01/26/19 03:54 Dose: 1,000 mg Amlodipine Besylate (Norvasc -) 10 mg PO DAILY [facility] Last Admin: 01/31/19 10:42 Dose: 10 mg Aspirin (Asa -) 81 mg PO DAILY [facility] Last Admin: 01/31/19 10:42 Dose: 81 mg Atorvastatin Calcium (Lipitor -) 40 mg PO HS [facility] Last Admin: 01/30/19 21:45 Dose: 40 mg Carvedilol (Coreg -) 12.5 mg PO BID [facility] Last Admin: 01/31/19 10:42 Dose: 12.5 mg Chlorhexidine Gluconate (Hibiclens For Decolonization -) 1 applic TP HS [facility] Last Admin: 01/30/19 21:45 Dose: 1 applic Clopidogrel Bisulfate (Plavix -) 75 mg PO DAILY [facility] Last Admin: 01/31/19 10:42 Dose: 75 mg Furosemide (Lasix Injection -) 40 mg IVPUSH DAILY [facility] Last Admin: 01/31/19 10:42 Dose: 40 mg Heparin Sodium (Porcine) (Heparin -) 1,000 unit IVPUSH PRN PRN PRN Reason: Heparin Heparin Sodium (Porcine) (Heparin -) 5,000 unit IVPUSH PRN PRN PRN Reason: Heparin Last Admin: 01/31/19 07:30 Dose: 5,000 unit Cefazolin Sodium 1 gm/ (Dextrose) 50 mls @ 100 mls/hr IVPB Q8H-IV [facility] Last Admin: 01/31/19 10:42 Dose: 100 mls/hr Heparin Sodium/Dextrose (Heparin Infusion -) 25,000 units in 500 mls @ 20 mls/ hr IVPB TITR [facility]; Protocol Last Titration: 01/31/19 07:00 Dose: 1,750 units/hr, 35 mls/hr Labetalol HCl (Normodyne Injection -) 10 mg IVPUSH Q4H PRN PRN Reason: HYPERTENSION Last Admin: 01/30/19 22:57 Dose: 10 mg Lisinopril (Prinivil) 5 mg PO DAILY [facility] Last Admin: 01/31/19 10:42 Dose: 5 mg Morphine Sulfate (Morphine Sulfate) 0.5 mg IVPUSH Q4H PRN PRN Reason: PAIN LEVEL 7 - 10 Last Admin: 01/30/19 03:16 Dose: 0.5 mg Quetiapine Fumarate (Seroquel -) 50 mg PO HS [facility] Last Admin: 01/30/19 21:45 Dose: 50 mg General: Awake and alert, NAD HEENT: (-) Pallor (-) Icterus Heart: RRR Lung: Clear Abd: soft, nontender, + BS Ext: no edema Neuro: Awake and alert, non-focal Laboratory Results - last 24 hr 01/27/19 01/28/19 01/29/19 05:25 05:55 06:05 WBC RBC Hgb Hct MCV MCH MCHC RDW Plt Count MPV Absolute Neuts (auto) Neutrophils % Lymphocytes % Monocytes % Eosinophils % Basophils % Nucleated RBC % PTT (Actin FS) Sodium Potassium Chloride Carbon Dioxide Anion Gap BUN Creatinine Est GFR (CKD-EPI)AfAm Est GFR (CKD-EPI)NonAf Random Glucose Calcium Phosphorus Magnesium Total Bilirubin AST ALT Alkaline Phosphatase Creatine Kinase Index 0.2 0.1 1.3 CK-MB (CK-2) 2.3 1.0 9.5 H Troponin I Total Protein Albumin 01/29/19 01/30/19 01/30/19 11:18 14:00 16:35 WBC RBC Hgb Hct MCV MCH MCHC RDW Plt Count MPV Absolute Neuts (auto) Neutrophils % Lymphocytes % Monocytes % Eosinophils % Basophils % Nucleated RBC % PTT (Actin FS) 30.4 Sodium Potassium Chloride Carbon Dioxide Anion Gap BUN Creatinine Est GFR (CKD-EPI)AfAm Est GFR (CKD-EPI)NonAf Random Glucose Calcium Phosphorus Magnesium Total Bilirubin AST ALT Alkaline Phosphatase Creatine Kinase Index 1.4 CK-MB (CK-2) 7.7 H Troponin I 14.80 H* Total Protein Albumin 01/30/19 01/31/19 01/31/19 21:00 05:50 05:50 WBC 6.6 RBC 3.25 L Hgb 8.8 L Hct 27.2 L MCV 83.7 MCH 27.2 MCHC 32.5 RDW 15.1 Plt Count 267 MPV 7.8 Absolute Neuts (auto) 3.4 Neutrophils % 52.3 D Lymphocytes % 29.8 D Monocytes % 15.8 H Eosinophils % 1.6 Basophils % 0.5 Nucleated RBC % 0 PTT (Actin FS) 31.7 Sodium 144 Potassium 3.6 Chloride 107 Carbon Dioxide 29 Anion Gap 8 BUN 39.9 H Creatinine 1.4 H Est GFR (CKD-EPI)AfAm 63.29 Est GFR (CKD-EPI)NonAf 54.60 Random Glucose 103 Calcium 9.1 Phosphorus 3.6 Magnesium 2.1 Total Bilirubin 1.1 H AST 50 H ALT 65 H Alkaline Phosphatase 119 H Creatine Kinase Index CK-MB (CK-2) Troponin I Total Protein 6.7 Albumin 2.7 L 01/31/19 05:50 WBC RBC Hgb Hct MCV MCH MCHC RDW Plt Count MPV Absolute Neuts (auto) Neutrophils % Lymphocytes % Monocytes % Eosinophils % Basophils % Nucleated RBC % PTT (Actin FS) 38.6 H Sodium Potassium Chloride Carbon Dioxide Anion Gap BUN Creatinine Est GFR (CKD-EPI)AfAm Est GFR (CKD-EPI)NonAf Random Glucose Calcium Phosphorus Magnesium Total Bilirubin AST ALT Alkaline Phosphatase Creatine Kinase Index CK-MB (CK-2) Troponin I Total Protein Albumin ASSESSMENT AND PLAN: Acute Hypoxic and Hypercapneic Respiratory Failure Acute on Chronic Systolic Heart Failure Acute Pulmonary Edema Hypertensive Urgency Pneumonia Sepsis Lactic Acidosis Elevated LFTs FABRICIO Smoker Resolved Delerium Lasix Follow Renal function O2 as needed Aspiration precautions Eliquis BB and CCB as per Cards Monitor urine output, creatinine ABX per ID Cardiac Telemetry monitoring Dr Dillard
--- NOTE | 2019-01-31 12:23 | PN ---
Progress Note, Physician History of Present Illness: stable doing well no complaints breathing well alert oriented - Current Medication List Current Medications: Active Medications Acetaminophen (Ofirmev Injection -) 1,000 mg IVPB Q6H PRN PRN Reason: FEVER Last Admin: 01/26/19 03:54 Dose: 1,000 mg Amlodipine Besylate (Norvasc -) 10 mg PO DAILY [facility] Last Admin: 01/31/19 10:42 Dose: 10 mg Aspirin (Asa -) 81 mg PO DAILY [facility] Last Admin: 01/31/19 10:42 Dose: 81 mg Atorvastatin Calcium (Lipitor -) 40 mg PO HS [facility] Last Admin: 01/30/19 21:45 Dose: 40 mg Carvedilol (Coreg -) 12.5 mg PO BID [facility] Last Admin: 01/31/19 10:42 Dose: 12.5 mg Chlorhexidine Gluconate (Hibiclens For Decolonization -) 1 applic TP HS [facility] Last Admin: 01/30/19 21:45 Dose: 1 applic Clopidogrel Bisulfate (Plavix -) 75 mg PO DAILY [facility] Last Admin: 01/31/19 10:42 Dose: 75 mg Furosemide (Lasix Injection -) 40 mg IVPUSH DAILY [facility] Last Admin: 01/31/19 10:42 Dose: 40 mg Heparin Sodium (Porcine) (Heparin -) 1,000 unit IVPUSH PRN PRN PRN Reason: Heparin Heparin Sodium (Porcine) (Heparin -) 5,000 unit IVPUSH PRN PRN PRN Reason: Heparin Last Admin: 01/31/19 07:30 Dose: 5,000 unit Cefazolin Sodium 1 gm/ (Dextrose) 50 mls @ 100 mls/hr IVPB Q8H-IV [facility] Last Admin: 01/31/19 10:42 Dose: 100 mls/hr Heparin Sodium/Dextrose (Heparin Infusion -) 25,000 units in 500 mls @ 20 mls/ hr IVPB TITR [facility]; Protocol Last Titration: 01/31/19 07:00 Dose: 1,750 units/hr, 35 mls/hr Labetalol HCl (Normodyne Injection -) 10 mg IVPUSH Q4H PRN PRN Reason: HYPERTENSION Last Admin: 01/30/19 22:57 Dose: 10 mg Lisinopril (Prinivil) 5 mg PO DAILY [facility] Last Admin: 01/31/19 10:42 Dose: 5 mg Morphine Sulfate (Morphine Sulfate) 0.5 mg IVPUSH Q4H PRN PRN Reason: PAIN LEVEL 7 - 10 Last Admin: 01/30/19 03:16 Dose: 0.5 mg Quetiapine Fumarate (Seroquel -) 50 mg PO HS [facility] Last Admin: 01/30/19 21:45 Dose: 50 mg - Objective Vital Signs: Vital Signs Temperature 98.2 F 01/31/19 10:00 Pulse Rate 90 01/31/19 12:00 Respiratory Rate 22 H 01/31/19 12:00 Blood Pressure 150/72 01/31/19 12:00 O2 Sat by Pulse Oximetry (%) 100 01/31/19 09:00 Constitutional: Yes: No Distress, Calm Cardiovascular: Yes: S1, S2 Respiratory: Yes: Regular, CTA Bilaterally Gastrointestinal: Yes: Normal Bowel Sounds Musculoskeletal: Yes: WNL Extremities: Yes: WNL Neurological: Yes: Alert, Oriented Psychiatric: Yes: Alert, Oriented Labs: CBC, BMP 01/31/19 05:50 01/31/19 05:50 INR, PTT INR 1.18 (0.83-1.09) H 01/23/19 10:30 Assessment/Plan - Problems (1) Acute on chronic systolic and diastolic heart failure, NYHA class 1 Code(s): I50.43 - ACUTE ON CHRONIC COMBINED SYSTOLIC AND DIASTOLIC HRT FAIL (2) Acute on chronic renal failure Code(s): N17.9 - ACUTE KIDNEY FAILURE, UNSPECIFIED; N18.9 - CHRONIC KIDNEY DISEASE, UNSPECIFIED Due to above, resume lisinopril once renal fxn stabilizes (3) Acute respiratory failure with hypoxia and hypercapnia Code(s): J96.01 - ACUTE RESPIRATORY FAILURE WITH HYPOXIA; J96.02 - ACUTE RESPIRATORY FAILURE WITH HYPERCAPNIA (4) Elevated liver enzymes Code(s): R74.8 - ABNORMAL LEVELS OF OTHER SERUM ENZYMES Hepatic congestion, LFTs downtrending (5) Hypertensive emergency Code(s): I16.1 - HYPERTENSIVE EMERGENCY (6) Elevated troponin Code(s): R74.8 - ABNORMAL LEVELS OF OTHER SERUM ENZYMES (7) Paroxysmal afib with RVR I48.0 (8) PNA plan stable off of abx continue current mgmt patient doing well
[2019-01-31] MEDS: HEPARIN INFUSION - 25,000 UNITS/500 ML INFUS.BAG IVPB SCH (17:57)
[2019-01-31] MEDS ORDERED: MORPHINE SULFATE 2 MG/ML VIAL IVPUSH PRN (18:52)
[2019-01-31] MEDS ORDERED: LABETALOL HCL 5 MG/1 ML (100MG/20 ML VIAL) IVPUSH PRN (18:52)
[2019-01-31] MEDS ORDERED: HEPARIN NA (PORCINE) 5,000 UNITS/ML 1ML VIAL IVPUSH PRN ×4 (18:52)
[2019-01-31] MEDS ORDERED: ACETAMINOPHEN 1000 MG/100 ML VIAL (NON FORMULARY) IVPB PRN (18:52)
[2019-01-31] MEDS ORDERED: HEPARIN INFUSION - 25,000 UNITS/500 ML INFUS.BAG IVPB SCH (18:52)
[2019-01-31] MEDS: ATORVASTATIN CA 40 MG TABLET (FP) PO SCH (21:50)
[2019-01-31] MEDS: QUEtiapine FUMARATE 50 MG TABLET PO SCH (21:50)
[2019-02-01] MEDS ORDERED: ceFAZolin SODIUM 1 GM VIAL ONE ×2 (01:40→10:43)
[2019-02-01] MEDS ORDERED: DEXTROSE 5%-WATER - 50 ML IVPB ONE ×2 (01:41→10:43)
[2019-02-01] MEDS: CEFAZOLIN 1 GM in DEXTROSE 5%-WATER - 50 ML IVPB SCH ×2 (03:15→10:47)
[2019-02-01 07:15] LABS: BASO % 0.8 % (0-2.0); EOS % 1.9 % (0-4.5); HEMATOCRIT 27.4 % (35.4-49); HEMOGLOBIN 8.7 GM/dL (11.7-16.9); MCH 26.6 pg (25.7-33.7); MCHC 31.6 g/dl (32.0-35.9); MEAN CELL VOLUME 84.2 fl (80-96); MEAN PLT VOLUME 7.5 fl (7.5-11.1); MONO % 15.1 % (3.8-10.2); NEUT % 49.2 % (42.8-82.8); PLATELET COUNT 312 K/MM3 (134-434); RBC 3.26 M/mm3 (4.00-5.60)
[2019-02-01 07:40] LABS: ALBUMIN 2.7 g/dl (3.4-5.0); BLOOD UREA NITROGEN 41.8 mg/dL (7-18); CALCIUM 8.8 mg/dL (8.5-10.1); CREATININE 1.4 mg/dL (0.55-1.3); MAGNESIUM 2.1 mg/dL (1.8-2.4); POTASSIUM 3.9 mmol/L (3.5-5.1); TOT PROT 6.6 g/dl (6.4-8.2)
--- NOTE | 2019-02-01 08:17 | PN ---
Progress Note, Physician Chief Complaint: Brought in by EMS for respiratory distress-intubated in field. History of Present Illness: History of Present Illness: Patient is a 58 year old male with a significant past medical history of diastolic CHF, aortic aneurysm (w/mild dilation), FABRICIO, HTN, nonobstructive CAD ( multiple caths done at other tertiary care centers), past hx lithotripsy for left nephrolithiasis, active smoker. He presents to [facility] ED for acute respiratory failure. Patient was intubated in the field after he experienced three days of respiratory difficulty. EMS brought him in while intubated, sedated after he was in acute respiratory failure with no audible lung sounds. On arrival he was also noted to have hypertensive emergency 238/185, tachycardic 130s and hypothermic (96.1f). His ABGs show acute respiratory hypercapneic failure. He was place on a Nitroglycerine drip for hypertensive emergency and given vasotec IV with improvement of his BP. Lasix 40mg x 1 push given, and he was started on propofol. imaging: head ct 01/23/19: negative for acute process ekg 01/23/19 - sinus tachycardia, left atrial enlargement chest xray 01/23/19 - large heart, congestive changes, possible retricardio inf ED course notable for: hypertensive emergency:238/185, hr 139, 96.1F + marijuana screen, otherwise negaive tox lactic acid 5.3 creatinine 2.4/bun 25.9 bnp 5680 trop + 0.25, trending q 6 hrs presents intubated in the field - Current Medication List Current Medications: Active Medications Acetaminophen (Ofirmev Injection -) 1,000 mg IVPB Q6H PRN PRN Reason: FEVER Amlodipine Besylate (Norvasc -) 10 mg PO DAILY [facility] Aspirin (Asa -) 81 mg PO DAILY [facility] Atorvastatin Calcium (Lipitor -) 40 mg PO HS [facility] Last Admin: 01/31/19 21:50 Dose: 40 mg Carvedilol (Coreg -) 12.5 mg PO BID [facility] Last Admin: 01/31/19 21:50 Dose: 12.5 mg Clopidogrel Bisulfate (Plavix -) 75 mg PO DAILY [facility] Furosemide (Lasix -) 40 mg PO DAILY [facility] Heparin Sodium (Porcine) (Heparin -) 1,000 unit IVPUSH PRN PRN PRN Reason: Heparin Last Admin: 02/01/19 06:31 Dose: 1,000 unit Heparin Sodium (Porcine) (Heparin -) 5,000 unit IVPUSH PRN PRN PRN Reason: Heparin Last Admin: 01/31/19 17:30 Dose: 5,000 unit Cefazolin Sodium 1 gm/ (Dextrose) 50 mls @ 100 mls/hr IVPB Q8H-IV [facility] Last Admin: 02/01/19 03:15 Dose: 100 mls/hr Heparin Sodium/Dextrose (Heparin Infusion -) 25,000 units in 500 mls @ 20 mls/ hr IVPB TITR [facility]; Protocol Last Titration: 01/31/19 22:19 Dose: 1,750 units/hr, 35 mls/hr Labetalol HCl (Normodyne Injection -) 10 mg IVPUSH Q4H PRN PRN Reason: HYPERTENSION Lisinopril (Prinivil) 5 mg PO DAILY [facility] Morphine Sulfate (Morphine Sulfate) 0.5 mg IVPUSH Q4H PRN PRN Reason: PAIN LEVEL 7 - 10 Quetiapine Fumarate (Seroquel -) 50 mg PO HS [facility] Last Admin: 01/31/19 21:50 Dose: 50 mg - Objective Vital Signs: Vital Signs Temperature 98.3 F 02/01/19 05:00 Pulse Rate 89 02/01/19 05:00 Respiratory Rate 20 02/01/19 05:00 Blood Pressure 131/88 02/01/19 05:00 O2 Sat by Pulse Oximetry (%) 99 01/31/19 21:00 Constitutional: Yes: Well Nourished, No Distress, Calm Eyes: Yes: WNL, Conjunctiva Clear, EOM Intact HENT: Yes: WNL, Atraumatic, Normocephalic Neck: Yes: WNL, Supple, Trachea Midline Cardiovascular: Yes: WNL, Regular Rate and Rhythm Respiratory: Yes: WNL, Regular, CTA Bilaterally Gastrointestinal: Yes: WNL, Normal Bowel Sounds, Soft ...Rectal Exam: Yes: Deferred Genitourinary: Yes: WNL Breast(s): Yes: WNL Musculoskeletal: Yes: WNL Extremities: Yes: WNL Edema: No Peripheral Pulses WNL: Yes Integumentary: Yes: WNL Neurological: Yes: WNL, Alert, Oriented ...Motor Strength: WNL Psychiatric: Yes: WNL, Alert, Oriented Labs: CBC, BMP 02/01/19 05:58 02/01/19 05:58 INR, PTT INR 1.18 (0.83-1.09) H 01/23/19 10:30 Problem List - Problems (1) Acute metabolic encephalopathy Assessment/Plan: resolved avoid any sedating agents frequent re-orientation and family visitation Code(s): G93.41 - METABOLIC ENCEPHALOPATHY (2) Acute respiratory failure with hypoxia and hypercapnia Assessment/Plan: extubated tuesday and remains extubated, not requiring O2 pulse oximetry , maintain O2 sta >92% with supplemental O2 prn Code(s): J96.01 - ACUTE RESPIRATORY FAILURE WITH HYPOXIA; J96.02 - ACUTE RESPIRATORY FAILURE WITH HYPERCAPNIA (3) Ayoid-gu-texrnvl renal failure Assessment/Plan: Cr last week 2.4, trending down to 1.4 lasix back on hold as per cardiology, gentle hydration will continue to trend Cr avoid all nephrotoxic agents c/w lisinipril plan for cardiac cath when Cr stabalizes Code(s): N17.9 - ACUTE KIDNEY FAILURE, UNSPECIFIED; N18.9 - CHRONIC KIDNEY DISEASE, UNSPECIFIED (4) Elevated liver enzymes Assessment/Plan: monitor LFTs avoid any hepatotoxic agents Code(s): R74.8 - ABNORMAL LEVELS OF OTHER SERUM ENZYMES (5) Elevated troponin Assessment/Plan: Trop 19.2/21/18.5/14.8 no c/o chest pain serial EKGs will continue to trend c/w telemetry cardiology following c/w asa possible cardiac cath in near future Code(s): R74.8 - ABNORMAL LEVELS OF OTHER SERUM ENZYMES (6) Paroxysmal A-fib Assessment/Plan: in SR with occosional PVCs, no PACs noted c/w cardiac monitoring Code(s): I48.0 - PAROXYSMAL ATRIAL FIBRILLATION (7) Prophylactic measure Assessment/Plan: FEN cardiac diet IVF restarted daily CMP DVT heparin gtt stopped and apixaban to be started Dispo transfer to telemetry from ICU appreciate ICU level of care full code discharge planning Code(s): Z29.9 - ENCOUNTER FOR PROPHYLACTIC MEASURES, UNSPECIFIED (8) Hypertensive emergency Assessment/Plan: c/w increased dose of carvedilol 12.5 mg bid c/w on amlodipine Improving renal function: ACEI restarted furosemide back on hold as per cardiology Code(s): I16.1 - HYPERTENSIVE EMERGENCY Visit type - Emergency Visit Emergency Visit: Yes ED Registration Date: 01/23/19 Care time: The patient presented to the Emergency Department on the above date and was hospitalized for further evaluation of their emergent condition. - New Patient This patient is new to me today: No - Critical Care Critical Care patient: No - Discharge Referral Referred to [facility] Med P.C.: No
[2019-02-01] MEDS ORDERED: FUROSEMIDE 40 MG TABLET (FP) PO SCH (10:00)
[2019-02-01] MEDS: ASPIRIN 81 MG CHEWABLE TABLETS PO SCH (10:47)
[2019-02-01] MEDS: amLODIPine BESYLATE 10 MG TABLET (FP) PO SCH (10:48)
[2019-02-01] MEDS: CLOPIDOGREL BISULFATE 75 MG TABLET (FP) PO SCH (10:48)
[2019-02-01] MEDS: LISINOPRIL 5 MG TABLET (FP) PO SCH (10:48)
[2019-02-01] MEDS: CARVEDILOL 12.5 MG TABLET (FP) PO SCH ×2 (10:48→22:11)
--- NOTE | 2019-02-01 11:20 | PN ---
Progress Note, Physician History of Present Illness: PULMONARY ALERT,NO DISTRESS,-CP,-SOB,-COUGH - Current Medication List Current Medications: Active Medications Acetaminophen (Ofirmev Injection -) 1,000 mg IVPB Q6H PRN PRN Reason: FEVER Amlodipine Besylate (Norvasc -) 10 mg PO DAILY [facility] Last Admin: 02/01/19 10:48 Dose: 10 mg Aspirin (Asa -) 81 mg PO DAILY [facility] Last Admin: 02/01/19 10:47 Dose: 81 mg Atorvastatin Calcium (Lipitor -) 40 mg PO HS [facility] Last Admin: 01/31/19 21:50 Dose: 40 mg Carvedilol (Coreg -) 12.5 mg PO BID [facility] Last Admin: 02/01/19 10:48 Dose: 12.5 mg Clopidogrel Bisulfate (Plavix -) 75 mg PO DAILY [facility] Last Admin: 02/01/19 10:48 Dose: 75 mg Furosemide (Lasix -) 40 mg PO DAILY [facility] Last Admin: 02/01/19 10:48 Dose: 40 mg Heparin Sodium (Porcine) (Heparin -) 1,000 unit IVPUSH PRN PRN PRN Reason: Heparin Last Admin: 02/01/19 06:31 Dose: 1,000 unit Heparin Sodium (Porcine) (Heparin -) 5,000 unit IVPUSH PRN PRN PRN Reason: Heparin Last Admin: 01/31/19 17:30 Dose: 5,000 unit Cefazolin Sodium 1 gm/ (Dextrose) 50 mls @ 100 mls/hr IVPB Q8H-IV [facility] Last Admin: 02/01/19 10:47 Dose: 100 mls/hr Heparin Sodium/Dextrose (Heparin Infusion -) 25,000 units in 500 mls @ 20 mls/ hr IVPB TITR [facility]; Protocol Last Titration: 01/31/19 22:19 Dose: 1,750 units/hr, 35 mls/hr Labetalol HCl (Normodyne Injection -) 10 mg IVPUSH Q4H PRN PRN Reason: HYPERTENSION Lisinopril (Prinivil) 5 mg PO DAILY [facility] Last Admin: 02/01/19 10:48 Dose: 5 mg Morphine Sulfate (Morphine Sulfate) 0.5 mg IVPUSH Q4H PRN PRN Reason: PAIN LEVEL 7 - 10 Quetiapine Fumarate (Seroquel -) 50 mg PO HS [facility] Last Admin: 01/31/19 21:50 Dose: 50 mg - Objective Vital Signs: Vital Signs Temperature 98.3 F 02/01/19 05:00 Pulse Rate 89 02/01/19 05:00 Respiratory Rate 20 02/01/19 05:00 Blood Pressure 131/88 02/01/19 05:00 O2 Sat by Pulse Oximetry (%) 99 01/31/19 21:00 Constitutional: Yes: Well Nourished, Calm Eyes: Yes: WNL HENT: Yes: WNL Neck: Yes: WNL Cardiovascular: Yes: Regular Rate and Rhythm, S1, S2 Respiratory: Yes: CTA Bilaterally Gastrointestinal: Yes: Normal Bowel Sounds, Soft Extremities: Yes: WNL Edema: No Labs: CBC, BMP 02/01/19 05:58 02/01/19 05:58 INR, PTT INR 1.18 (0.83-1.09) H 01/23/19 10:30 Problem List - Problems (1) Acute on chronic systolic and diastolic heart failure, NYHA class 1 Code(s): I50.43 - ACUTE ON CHRONIC COMBINED SYSTOLIC AND DIASTOLIC HRT FAIL (2) Acute respiratory failure with hypoxia and hypercapnia Code(s): J96.01 - ACUTE RESPIRATORY FAILURE WITH HYPOXIA; J96.02 - ACUTE RESPIRATORY FAILURE WITH HYPERCAPNIA (3) Elevated liver enzymes Code(s): R74.8 - ABNORMAL LEVELS OF OTHER SERUM ENZYMES (4) Elevated troponin Code(s): R74.8 - ABNORMAL LEVELS OF OTHER SERUM ENZYMES (5) NSTEMI (non-ST elevated myocardial infarction) Code(s): I21.4 - NON-ST ELEVATION (NSTEMI) MYOCARDIAL INFARCTION (6) Tobacco abuse Code(s): Z72.0 - TOBACCO USE (7) Acute CHF (congestive heart failure) Code(s): I50.9 - HEART FAILURE, UNSPECIFIED (8) Acute metabolic encephalopathy Code(s): G93.41 - METABOLIC ENCEPHALOPATHY (9) Acute pulmonary edema Code(s): J81.0 - ACUTE PULMONARY EDEMA (10) Hypertensive emergency Code(s): I16.1 - HYPERTENSIVE EMERGENCY (11) Acute on chronic diastolic CHF (congestive heart failure) Code(s): I50.33 - ACUTE ON CHRONIC DIASTOLIC (CONGESTIVE) HEART FAILURE (12) CAD (coronary artery disease) Code(s): I25.10 - ATHSCL HEART DISEASE OF [place] CORONARY ARTERY W/O ANG PCTRS Qualifiers: Coronary Disease-Associated Artery/Lesion type: [place] artery Assessment/Plan ASSESSMENT AND PLAN: Acute Hypoxic and Hypercapneic Respiratory Failure Acute on Chronic Systolic Heart Failure Acute Pulmonary Edema Hypertensive Urgency Pneumonia Sepsis Lactic Acidosis Elevated LFTs FABRICIO Smoker Resolved Delerium Anemia Lasix Follow Renal function O2 as needed Aspiration precautions Eliquis Monitor urine output, creatinine ABX per ID DR MAE
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
[2019-02-01] MEDS: APIXABAN 5 MG TABLET PO SCH ×2 (15:28→22:11)
--- NOTE | 2019-02-01 16:54 | PN ---
Progress Note, Physician History of Present Illness: stable doing well no issues - Current Medication List Current Medications: Active Medications Acetaminophen (Ofirmev Injection -) 1,000 mg IVPB Q6H PRN PRN Reason: FEVER Amlodipine Besylate (Norvasc -) 10 mg PO DAILY [facility] Last Admin: 02/01/19 10:48 Dose: 10 mg Apixaban (Eliquis -) 5 mg PO BID [facility] Last Admin: 02/01/19 15:28 Dose: 5 mg Aspirin (Asa -) 81 mg PO DAILY [facility] Last Admin: 02/01/19 10:47 Dose: 81 mg Atorvastatin Calcium (Lipitor -) 40 mg PO HS [facility] Last Admin: 01/31/19 21:50 Dose: 40 mg Carvedilol (Coreg -) 12.5 mg PO BID [facility] Last Admin: 02/01/19 10:48 Dose: 12.5 mg Clopidogrel Bisulfate (Plavix -) 75 mg PO DAILY [facility] Last Admin: 02/01/19 10:48 Dose: 75 mg Dextrose/Sodium Chloride (D5-1/3ns -) 500 mls @ 83 mls/hr IV ASDIR [facility] Labetalol HCl (Normodyne Injection -) 10 mg IVPUSH Q4H PRN PRN Reason: HYPERTENSION Lisinopril (Prinivil) 5 mg PO DAILY [facility] Last Admin: 02/01/19 10:48 Dose: 5 mg Morphine Sulfate (Morphine Sulfate) 0.5 mg IVPUSH Q4H PRN PRN Reason: PAIN LEVEL 7 - 10 Quetiapine Fumarate (Seroquel -) 50 mg PO [facility] Last Admin: 01/31/19 21:50 Dose: 50 mg - Objective Vital Signs: Vital Signs Temperature 98 F 02/01/19 14:00 Pulse Rate 89 02/01/19 14:00 Respiratory Rate 20 02/01/19 14:00 Blood Pressure 104/77 02/01/19 14:00 O2 Sat by Pulse Oximetry (%) 99 02/01/19 10:00 Constitutional: Yes: No Distress, Calm Cardiovascular: Yes: S1, S2 Respiratory: Yes: Regular, CTA Bilaterally Gastrointestinal: Yes: Normal Bowel Sounds, Soft Musculoskeletal: Yes: WNL Extremities: Yes: WNL Neurological: Yes: Alert, Oriented Psychiatric: Yes: Alert, Oriented Labs: CBC, BMP 02/01/19 05:58 02/01/19 05:58 INR, PTT INR 1.18 (0.83-1.09) H 01/23/19 10:30 Assessment/Plan - Problems (1) Acute on chronic systolic and diastolic heart failure, NYHA class 1 Code(s): I50.43 - ACUTE ON CHRONIC COMBINED SYSTOLIC AND DIASTOLIC HRT FAIL (2) Acute on chronic renal failure Code(s): N17.9 - ACUTE KIDNEY FAILURE, UNSPECIFIED; N18.9 - CHRONIC KIDNEY DISEASE, UNSPECIFIED Due to above, resume lisinopril once renal fxn stabilizes (3) Acute respiratory failure with hypoxia and hypercapnia Code(s): J96.01 - ACUTE RESPIRATORY FAILURE WITH HYPOXIA; J96.02 - ACUTE RESPIRATORY FAILURE WITH HYPERCAPNIA (4) Elevated liver enzymes Code(s): R74.8 - ABNORMAL LEVELS OF OTHER SERUM ENZYMES Hepatic congestion, LFTs downtrending (5) Hypertensive emergency Code(s): I16.1 - HYPERTENSIVE EMERGENCY (6) Elevated troponin Code(s): R74.8 - ABNORMAL LEVELS OF OTHER SERUM ENZYMES (7) Paroxysmal afib with RVR I48.0 (8) PNA plan stable off of abx continue current mgmt patient doing well
[2019-02-01] MEDS: QUEtiapine FUMARATE 50 MG TABLET PO SCH (22:11)
[2019-02-01] MEDS: ATORVASTATIN CA 40 MG TABLET (FP) PO SCH (22:11)
[2019-02-01] MEDS: DEXTROSE 5%-1/3 NS - 500 ML IV SCH (23:04)
[2019-02-02 07:37] LABS: BASO % 0.8 % (0-2.0); EOS % 1.5 % (0-4.5); HEMATOCRIT 26.3 % (35.4-49); HEMOGLOBIN 8.3 GM/dL (11.7-16.9); LYMPH % 31.1 % (8-40); MCH 26.8 pg (25.7-33.7); MCHC 31.7 g/dl (32.0-35.9); MEAN CELL VOLUME 84.4 fl (80-96); MEAN PLT VOLUME 7.7 fl (7.5-11.1); MONO % 15.4 % (3.8-10.2); NEUT % 51.2 % (42.8-82.8); PLATELET COUNT 338 K/MM3 (134-434); RBC 3.11 M/mm3 (4.00-5.60); RDW 15.5 % (11.9-15.9)
[2019-02-02 07:50] LABS: ALBUMIN 2.9 g/dl (3.4-5.0); BILIRUBIN,TOTAL 0.7 mg/dL (0.2-1); CALCIUM 8.7 mg/dL (8.5-10.1); CREATININE 1.5 mg/dL (0.55-1.3); MAGNESIUM 2.1 mg/dL (1.8-2.4); POTASSIUM 4.1 mmol/L (3.5-5.1); TOT PROT 6.8 g/dl (6.4-8.2)
--- NOTE | 2019-02-02 08:04 | PN ---
Progress Note, Physician Chief Complaint: No complaints overnight.Very grateful for care History of Present Illness: History of Present Illness: Patient is a 58 year old male with a significant past medical history of diastolic CHF, aortic aneurysm (w/mild dilation), FABRICIO, HTN, nonobstructive CAD ( multiple caths done at other tertiary care centers), past hx lithotripsy for left nephrolithiasis, active smoker. He presents to [facility] ED for acute respiratory failure. Patient was intubated in the field after he experienced three days of respiratory difficulty. EMS brought him in while intubated, sedated after he was in acute respiratory failure with no audible lung sounds. On arrival he was also noted to have hypertensive emergency 238/185, tachycardic 130s and hypothermic (96.1f). His ABGs show acute respiratory hypercapneic failure. He was place on a Nitroglycerine drip for hypertensive emergency and given vasotec IV with improvement of his BP. Lasix 40mg x 1 push given, and he was started on propofol. imaging: head ct 01/23/19: negative for acute process ekg 01/23/19 - sinus tachycardia, left atrial enlargement chest xray 01/23/19 - large heart, congestive changes, possible retricardio inf ED course notable for: hypertensive emergency:238/185, hr 139, 96.1F + marijuana screen, otherwise negaive tox lactic acid 5.3 creatinine 2.4/bun 25.9 bnp 5680 trop + 0.25, trending q 6 hrs presents intubated in the field - Current Medication List Current Medications: Active Medications Acetaminophen (Ofirmev Injection -) 1,000 mg IVPB Q6H PRN PRN Reason: FEVER Amlodipine Besylate (Norvasc -) 10 mg PO DAILY [facility] Last Admin: 02/01/19 10:48 Dose: 10 mg Apixaban (Eliquis -) 5 mg PO BID [facility] Last Admin: 02/01/19 22:11 Dose: 5 mg Aspirin (Asa -) 81 mg PO DAILY [facility] Last Admin: 02/01/19 10:47 Dose: 81 mg Atorvastatin Calcium (Lipitor -) 40 mg PO HS [facility] Last Admin: 02/01/19 22:11 Dose: 40 mg Carvedilol (Coreg -) 12.5 mg PO BID [facility] Last Admin: 02/01/19 22:11 Dose: 12.5 mg Clopidogrel Bisulfate (Plavix -) 75 mg PO DAILY [facility] Last Admin: 02/01/19 10:48 Dose: 75 mg Dextrose/Sodium Chloride (D5-1/3ns -) 500 mls @ 83 mls/hr IV ASDIR [facility] Last Admin: 02/01/19 23:04 Dose: 83 mls/hr Labetalol HCl (Normodyne Injection -) 10 mg IVPUSH Q4H PRN PRN Reason: HYPERTENSION Lisinopril (Prinivil) 5 mg PO DAILY [facility] Last Admin: 02/01/19 10:48 Dose: 5 mg Morphine Sulfate (Morphine Sulfate) 0.5 mg IVPUSH Q4H PRN PRN Reason: PAIN LEVEL 7 - 10 Quetiapine Fumarate (Seroquel -) 50 mg PO HS [facility] Last Admin: 02/01/19 22:11 Dose: 50 mg - Objective Vital Signs: Vital Signs Temperature 98.3 F 02/02/19 06:00 Pulse Rate 79 02/02/19 06:00 Respiratory Rate 20 02/02/19 06:00 Blood Pressure 135/96 02/02/19 06:00 O2 Sat by Pulse Oximetry (%) 99 02/01/19 21:00 Constitutional: Yes: Well Nourished, No Distress, Calm Eyes: Yes: WNL, Conjunctiva Clear, EOM Intact HENT: Yes: WNL, Atraumatic, Normocephalic Neck: Yes: WNL, Supple, Trachea Midline Cardiovascular: Yes: WNL, Regular Rate and Rhythm Respiratory: Yes: WNL, Regular, CTA Bilaterally Gastrointestinal: Yes: WNL, Normal Bowel Sounds, Soft ...Rectal Exam: Yes: Deferred Genitourinary: Yes: WNL Breast(s): Yes: WNL Musculoskeletal: Yes: WNL Extremities: Yes: WNL Edema: No Peripheral Pulses WNL: Yes Integumentary: Yes: WNL Neurological: Yes: WNL, Alert, Oriented ...Motor Strength: WNL Psychiatric: Yes: WNL, Alert, Oriented Labs: CBC, BMP 02/02/19 06:03 INR, PTT INR 1.18 (0.83-1.09) H 01/23/19 10:30 Problem List - Problems (1) Acute metabolic encephalopathy Assessment/Plan: resolved avoid any sedating agents frequent re-orientation and family visitation Code(s): G93.41 - METABOLIC ENCEPHALOPATHY (2) Acute respiratory failure with hypoxia and hypercapnia Assessment/Plan: Remains extubated not requiring O2 pulse oximetry , maintain O2 sta >92% with supplemental O2 prn Code(s): J96.01 - ACUTE RESPIRATORY FAILURE WITH HYPOXIA; J96.02 - ACUTE RESPIRATORY FAILURE WITH HYPERCAPNIA (3) [id number] renal failure Assessment/Plan: Cr last week 2.4, now 1.5 lasix back on hold woth gentle hydration will continue to trend Cr avoid all nephrotoxic agents c/w lisinipril, if cr rises will place back on hold plan for cardiac cath when Cr stabalizes Code(s): N17.9 - ACUTE KIDNEY FAILURE, UNSPECIFIED; N18.9 - CHRONIC KIDNEY DISEASE, UNSPECIFIED (4) Elevated liver enzymes Assessment/Plan: monitor LFTs avoid any hepatotoxic agents Code(s): R74.8 - ABNORMAL LEVELS OF OTHER SERUM ENZYMES (5) Elevated troponin Assessment/Plan: Trop 19.2/21/18.5/14.8 no c/o chest pain serial EKGs as needed c/w telemetry cardiology following c/w asa possible cardiac cath in near future Code(s): R74.8 - ABNORMAL LEVELS OF OTHER SERUM ENZYMES (6) Paroxysmal A-fib Assessment/Plan: in SR with occosional PVCs, no PACs noted c/w cardiac monitoring Code(s): I48.0 - PAROXYSMAL ATRIAL FIBRILLATION (7) Prophylactic measure Assessment/Plan: FEN cardiac diet IVF restarted daily CMP DVT apixaban 5mg bid Dispo mainatin in telemetry full code discharge planning Code(s): Z29.9 - ENCOUNTER FOR PROPHYLACTIC MEASURES, UNSPECIFIED (8) Hypertensive emergency Assessment/Plan: c/w carvedilol 12.5 mg bid c/w on amlodipine monitor renal fx while on ACEI r furosemide back on hold Code(s): I16.1 - HYPERTENSIVE EMERGENCY Visit type - Emergency Visit Emergency Visit: Yes ED Registration Date: 01/23/19 Care time: The patient presented to the Emergency Department on the above date and was hospitalized for further evaluation of their emergent condition. - New Patient This patient is new to me today: Yes Date on this admission: 02/02/19 - Critical Care Critical Care patient: No - Discharge Referral Referred to [facility] Med P.C.: No
[2019-02-02] MEDS: ASPIRIN 81 MG CHEWABLE TABLETS PO SCH (09:32)
[2019-02-02] MEDS: amLODIPine BESYLATE 10 MG TABLET (FP) PO SCH (09:33)
[2019-02-02] MEDS: LISINOPRIL 5 MG TABLET (FP) PO SCH (09:33)
[2019-02-02] MEDS: CARVEDILOL 12.5 MG TABLET (FP) PO SCH ×2 (09:33→22:29)
[2019-02-02] MEDS: CLOPIDOGREL BISULFATE 75 MG TABLET (FP) PO SCH (09:33)
[2019-02-02] MEDS: APIXABAN 5 MG TABLET PO SCH ×2 (09:33→22:29)
--- NOTE | 2019-02-02 10:28 | PN ---
Progress Note, Physician History of Present Illness: PULMONARY ALERT,COMFORTABLE -C/O CP,-SOB - Current Medication List Current Medications: Active Medications Acetaminophen (Ofirmev Injection -) 1,000 mg IVPB Q6H PRN PRN Reason: FEVER Amlodipine Besylate (Norvasc -) 10 mg PO DAILY [facility] Last Admin: 02/02/19 09:33 Dose: 10 mg Apixaban (Eliquis -) 5 mg PO BID [facility] Last Admin: 02/02/19 09:33 Dose: 5 mg Aspirin (Asa -) 81 mg PO DAILY [facility] Last Admin: 02/02/19 09:32 Dose: 81 mg Atorvastatin Calcium (Lipitor -) 40 mg PO HS [facility] Last Admin: 02/01/19 22:11 Dose: 40 mg Carvedilol (Coreg -) 12.5 mg PO BID [facility] Last Admin: 02/02/19 09:33 Dose: 12.5 mg Clopidogrel Bisulfate (Plavix -) 75 mg PO DAILY [facility] Last Admin: 02/02/19 09:33 Dose: 75 mg Dextrose/Sodium Chloride (D5-1/3ns -) 500 mls @ 83 mls/hr IV ASDIR [facility] Last Admin: 02/01/19 23:04 Dose: 83 mls/hr Labetalol HCl (Normodyne Injection -) 10 mg IVPUSH Q4H PRN PRN Reason: HYPERTENSION Lisinopril (Prinivil) 5 mg PO DAILY [facility] Last Admin: 02/02/19 09:33 Dose: 5 mg Morphine Sulfate (Morphine Sulfate) 0.5 mg IVPUSH Q4H PRN PRN Reason: PAIN LEVEL 7 - 10 Quetiapine Fumarate (Seroquel -) 50 mg PO [facility] Last Admin: 02/01/19 22:11 Dose: 50 mg - Objective Vital Signs: Vital Signs Temperature 98.3 F 02/02/19 06:00 Pulse Rate 79 02/02/19 06:00 Respiratory Rate 20 02/02/19 06:00 Blood Pressure 135/96 02/02/19 06:00 O2 Sat by Pulse Oximetry (%) 99 02/01/19 21:00 Constitutional: Yes: Well Nourished, Calm Eyes: Yes: WNL HENT: Yes: WNL Neck: Yes: WNL Cardiovascular: Yes: Regular Rate and Rhythm, S1, S2 Respiratory: Yes: CTA Bilaterally Gastrointestinal: Yes: Normal Bowel Sounds, Soft Extremities: Yes: WNL Edema: No Labs: CBC, BMP 02/02/19 06:03 02/02/19 06:03 INR, PTT INR 1.18 (0.83-1.09) H 01/23/19 10:30 Problem List - Problems (1) Acute on chronic systolic and diastolic heart failure, NYHA class 1 Code(s): I50.43 - ACUTE ON CHRONIC COMBINED SYSTOLIC AND DIASTOLIC HRT FAIL (2) Acute respiratory failure with hypoxia and hypercapnia Code(s): J96.01 - ACUTE RESPIRATORY FAILURE WITH HYPOXIA; J96.02 - ACUTE RESPIRATORY FAILURE WITH HYPERCAPNIA (3) Elevated liver enzymes Code(s): R74.8 - ABNORMAL LEVELS OF OTHER SERUM ENZYMES (4) Elevated troponin Code(s): R74.8 - ABNORMAL LEVELS OF OTHER SERUM ENZYMES (5) NSTEMI (non-ST elevated myocardial infarction) Code(s): I21.4 - NON-ST ELEVATION (NSTEMI) MYOCARDIAL INFARCTION (6) Tobacco abuse Code(s): Z72.0 - TOBACCO USE (7) Acute CHF (congestive heart failure) Code(s): I50.9 - HEART FAILURE, UNSPECIFIED (8) Acute metabolic encephalopathy Code(s): G93.41 - METABOLIC ENCEPHALOPATHY (9) Acute pulmonary edema Code(s): J81.0 - ACUTE PULMONARY EDEMA (10) Hypertensive emergency Code(s): I16.1 - HYPERTENSIVE EMERGENCY (11) Acute on chronic diastolic CHF (congestive heart failure) Code(s): I50.33 - ACUTE ON CHRONIC DIASTOLIC (CONGESTIVE) HEART FAILURE (12) CAD (coronary artery disease) Code(s): I25.10 - ATHSCL HEART DISEASE OF [place] CORONARY ARTERY W/O ANG PCTRS Qualifiers: Coronary Disease-Associated Artery/Lesion type: [place] artery Assessment/Plan ASSESSMENT AND PLAN: Acute Hypoxic and Hypercapneic Respiratory Failure resolved Acute on Chronic Systolic Heart Failure Acute Pulmonary Edema resolved Hypertensive Urgency improved Pneumonia Sepsis Lactic Acidosis Elevated LFTs FABRICIO Smoker Resolved Delerium Anemia Lasix Follow Renal function O2 as needed Eliquis Monitor urine output ABX per ID DR MAE
--- NOTE | 2019-02-02 10:54 | PN ---
Progress Note, Physician History of Present Illness: stable no new issues - Current Medication List Current Medications: Active Medications Acetaminophen (Ofirmev Injection -) 1,000 mg IVPB Q6H PRN PRN Reason: FEVER Amlodipine Besylate (Norvasc -) 10 mg PO DAILY [facility] Last Admin: 02/02/19 09:33 Dose: 10 mg Apixaban (Eliquis -) 5 mg PO BID [facility] Last Admin: 02/02/19 09:33 Dose: 5 mg Aspirin (Asa -) 81 mg PO DAILY [facility] Last Admin: 02/02/19 09:32 Dose: 81 mg Atorvastatin Calcium (Lipitor -) 40 mg PO HS [facility] Last Admin: 02/01/19 22:11 Dose: 40 mg Carvedilol (Coreg -) 12.5 mg PO BID [facility] Last Admin: 02/02/19 09:33 Dose: 12.5 mg Clopidogrel Bisulfate (Plavix -) 75 mg PO DAILY [facility] Last Admin: 02/02/19 09:33 Dose: 75 mg Dextrose/Sodium Chloride (D5-1/3ns -) 500 mls @ 83 mls/hr IV ASDIR [facility] Last Admin: 02/01/19 23:04 Dose: 83 mls/hr Labetalol HCl (Normodyne Injection -) 10 mg IVPUSH Q4H PRN PRN Reason: HYPERTENSION Lisinopril (Prinivil) 5 mg PO DAILY [facility] Last Admin: 02/02/19 09:33 Dose: 5 mg Morphine Sulfate (Morphine Sulfate) 0.5 mg IVPUSH Q4H PRN PRN Reason: PAIN LEVEL 7 - 10 Quetiapine Fumarate (Seroquel -) 50 mg PO [facility] Last Admin: 02/01/19 22:11 Dose: 50 mg - Objective Vital Signs: Vital Signs Temperature 98.3 F 02/02/19 06:00 Pulse Rate 79 02/02/19 06:00 Respiratory Rate 20 02/02/19 06:00 Blood Pressure 135/96 02/02/19 06:00 O2 Sat by Pulse Oximetry (%) 99 02/01/19 21:00 Constitutional: Yes: No Distress, Calm Cardiovascular: Yes: S1, S2 Respiratory: Yes: Regular, CTA Bilaterally Gastrointestinal: Yes: Normal Bowel Sounds, Soft Musculoskeletal: Yes: WNL Extremities: Yes: WNL Neurological: Yes: Alert, Oriented Psychiatric: Yes: Alert, Oriented Labs: CBC, BMP 02/02/19 06:03 02/02/19 06:03 INR, PTT INR 1.18 (0.83-1.09) H 01/23/19 10:30 Assessment/Plan - Problems (1) Acute on chronic systolic and diastolic heart failure, NYHA class 1 Code(s): I50.43 - ACUTE ON CHRONIC COMBINED SYSTOLIC AND DIASTOLIC HRT FAIL (2) Acute on chronic renal failure Code(s): N17.9 - ACUTE KIDNEY FAILURE, UNSPECIFIED; N18.9 - CHRONIC KIDNEY DISEASE, UNSPECIFIED Due to above, resume lisinopril once renal fxn stabilizes (3) Acute respiratory failure with hypoxia and hypercapnia Code(s): J96.01 - ACUTE RESPIRATORY FAILURE WITH HYPOXIA; J96.02 - ACUTE RESPIRATORY FAILURE WITH HYPERCAPNIA (4) Elevated liver enzymes Code(s): R74.8 - ABNORMAL LEVELS OF OTHER SERUM ENZYMES Hepatic congestion, LFTs downtrending (5) Hypertensive emergency Code(s): I16.1 - HYPERTENSIVE EMERGENCY (6) Elevated troponin Code(s): R74.8 - ABNORMAL LEVELS OF OTHER SERUM ENZYMES (7) Paroxysmal afib with RVR I48.0 (8) PNA plan continue current mgmt stable rest as per the team
--- NOTE | 2019-02-02 11:34 | EKG ---
Test Reason : Blood Pressure : / mmHG Vent. Rate : 070 BPM Atrial Rate : 070 BPM P-R Int : 174 ms QRS Dur : 098 ms QT Int : 436 ms P-R-T Axes : 038 040 212 degrees QTc Int : 470 ms SINUS RHYTHM WITH SINUS ARRHYTHMIA WITH OCCASIONAL PREMATURE VENTRICULAR COMPLEXES POSSIBLE LEFT ATRIAL ENLARGEMENT LEFT VENTRICULAR HYPERTROPHY T WAVE ABNORMALITY, CONSIDER INFEROLATERAL ISCHEMIA PROLONGED QT ABNORMAL ECG Confirmed by PENNY DICKSON MD ([id number]) on 02/02/2019 11:34:20 AM Referred By: KEATON HOPPER Confirmed By:PENNY DICKSON MD
[2019-02-02] MEDS: AMOX TR/POT CLAV 875MG/125MG TABLETS (FP) PO SCH (17:19)
[2019-02-02] MEDS: DEXTROSE 5%-1/3 NS - 500 ML IV SCH (17:23)
[2019-02-02 17:36] LABS: INR 1.5 (0.83-1.09); PROTHROMBIN TIME (PATIENT) 17.8 SEC (9.7-13.0)
[2019-02-02] MEDS: QUEtiapine FUMARATE 50 MG TABLET PO SCH (22:29)
[2019-02-02] MEDS: ATORVASTATIN CA 40 MG TABLET (FP) PO SCH (22:29)
[2019-02-03 07:17] LABS: BASO % 0.7 % (0-2.0); EOS % 1.7 % (0-4.5); HEMATOCRIT 25.1 % (35.4-49); LYMPH % 29.9 % (8-40); MCH 26.9 pg (25.7-33.7); MCHC 31.7 g/dl (32.0-35.9); MEAN PLT VOLUME 7.8 fl (7.5-11.1); MONO % 13.1 % (3.8-10.2); NEUT % 54.6 % (42.8-82.8); PLATELET COUNT 325 K/MM3 (134-434); RBC 2.96 M/mm3 (4.00-5.60); RDW 15.6 % (11.9-15.9); WHITE BLOOD COUNT 5.9 K/mm3 (4.0-10.0)
[2019-02-03 07:37] LABS: ALBUMIN 2.7 g/dl (3.4-5.0); BILIRUBIN,TOTAL 0.6 mg/dL (0.2-1); BLOOD UREA NITROGEN 29.8 mg/dL (7-18); CALCIUM 8.6 mg/dL (8.5-10.1); CREATININE 1.4 mg/dL (0.55-1.3); MAGNESIUM 2.1 mg/dL (1.8-2.4); POTASSIUM 4.6 mmol/L (3.5-5.1); TOT PROT 6.4 g/dl (6.4-8.2)
--- NOTE | 2019-02-03 07:51 | PN ---
Progress Note, Physician Chief Complaint: No complaints overnight. History of Present Illness: History of Present Illness: Patient is a 58 year old male with a significant past medical history of diastolic CHF, aortic aneurysm (w/mild dilation), FABRICIO, HTN, nonobstructive CAD ( multiple caths done at other tertiary care centers), past hx lithotripsy for left nephrolithiasis, active smoker. He presents to [facility] ED for acute respiratory failure. Patient was intubated in the field after he experienced three days of respiratory difficulty. EMS brought him in while intubated, sedated after he was in acute respiratory failure with no audible lung sounds. On arrival he was also noted to have hypertensive emergency 238/185, tachycardic 130s and hypothermic (96.1f). His ABGs show acute respiratory hypercapneic failure. He was place on a Nitroglycerine drip for hypertensive emergency and given vasotec IV with improvement of his BP. imaging: head ct 01/23/19: negative for acute process ekg 01/23/19 - sinus tachycardia, left atrial enlargement chest xray 01/23/19 - large heart, congestive changes, possible retricardio inf - Current Medication List Current Medications: Active Medications Acetaminophen (Ofirmev Injection -) 1,000 mg IVPB Q6H PRN PRN Reason: FEVER Amlodipine Besylate (Norvasc -) 10 mg PO DAILY [facility] Last Admin: 02/02/19 09:33 Dose: 10 mg Amoxicillin/Clavulanate Potassium (Augmentin - 875mg Tablet) 1 tab PO BID@0800, 1730 [facility] Last Admin: 02/02/19 17:19 Dose: 1 tab Apixaban (Eliquis -) 5 mg PO BID [facility] Last Admin: 02/02/19 22:29 Dose: 5 mg Aspirin (Asa -) 81 mg PO DAILY [facility] Last Admin: 02/02/19 09:32 Dose: 81 mg Atorvastatin Calcium (Lipitor -) 40 mg PO HS [facility] Last Admin: 02/02/19 22:29 Dose: 40 mg Carvedilol (Coreg -) 12.5 mg PO BID [facility] Last Admin: 02/02/19 22:29 Dose: 12.5 mg Clopidogrel Bisulfate (Plavix -) 75 mg PO DAILY [facility] Last Admin: 02/02/19 09:33 Dose: 75 mg Dextrose/Sodium Chloride (D5-1/3ns -) 500 mls @ 83 mls/hr IV ASDIR [facility] Last Admin: 02/02/19 17:23 Dose: 83 mls/hr Labetalol HCl (Normodyne Injection -) 10 mg IVPUSH Q4H PRN PRN Reason: HYPERTENSION Lisinopril (Prinivil) 5 mg PO DAILY [facility] Last Admin: 02/02/19 09:33 Dose: 5 mg Morphine Sulfate (Morphine Sulfate) 0.5 mg IVPUSH Q4H PRN PRN Reason: PAIN LEVEL 7 - 10 Quetiapine Fumarate (Seroquel -) 50 mg PO [facility] Last Admin: 02/02/19 22:29 Dose: 50 mg - Objective Vital Signs: Vital Signs Temperature 98.2 F 02/03/19 05:46 Pulse Rate 63 02/03/19 05:46 Respiratory Rate 20 02/03/19 05:46 Blood Pressure 134/98 02/03/19 05:46 O2 Sat by Pulse Oximetry (%) 99 02/02/19 22:00 Constitutional: Yes: Well Nourished, No Distress, Calm Eyes: Yes: WNL, Conjunctiva Clear, EOM Intact HENT: Yes: WNL, Atraumatic, Normocephalic Neck: Yes: WNL, Supple, Trachea Midline Cardiovascular: Yes: WNL, Regular Rate and Rhythm Respiratory: Yes: WNL, Regular, Rales (at bases) Gastrointestinal: Yes: WNL, Normal Bowel Sounds, Soft Genitourinary: Yes: WNL Breast(s): Yes: WNL Musculoskeletal: Yes: WNL Extremities: Yes: WNL Edema: Yes Edema: LLE: Trace, RLE: Trace Peripheral Pulses WNL: Yes Integumentary: Yes: WNL Neurological: Yes: WNL, Alert, Oriented ...Motor Strength: WNL Psychiatric: Yes: WNL, Alert, Oriented Labs: CBC, BMP 02/03/19 05:54 INR, PTT INR 1.50 (0.83-1.09) H 02/02/19 16:10 Problem List - Problems (1) Acute metabolic encephalopathy Assessment/Plan: resolved avoid any sedating agents frequent re-orientation and family visitation Code(s): G93.41 - METABOLIC ENCEPHALOPATHY (2) Acute respiratory failure with hypoxia and hypercapnia Assessment/Plan: Remains extubated not requiring O2 pulse oximetry , maintain O2 sta >92% with supplemental O2 prn Code(s): J96.01 - ACUTE RESPIRATORY FAILURE WITH HYPOXIA; J96.02 - ACUTE RESPIRATORY FAILURE WITH HYPERCAPNIA (3) [id number] renal failure Assessment/Plan: Cr last week 2.4, now 1.5 lasix back on hold with gentle hydration will continue to trend Cr avoid all nephrotoxic agents c/w lisinipril, if cr rises will place back on hold plan for ST on tue +/- cardiac cath Code(s): N17.9 - ACUTE KIDNEY FAILURE, UNSPECIFIED; N18.9 - CHRONIC KIDNEY DISEASE, UNSPECIFIED (4) Elevated liver enzymes Assessment/Plan: monitor LFTs avoid any hepatotoxic agents Code(s): R74.8 - ABNORMAL LEVELS OF OTHER SERUM ENZYMES (5) Elevated troponin Assessment/Plan: Trop 19.2/21/18.5/14.8 will send no c/o chest pain serial EKGs as needed c/w telemetry cardiology following c/w asa possible cardiac cath in near future Code(s): R74.8 - ABNORMAL LEVELS OF OTHER SERUM ENZYMES (6) Paroxysmal A-fib Code(s): I48.0 - PAROXYSMAL ATRIAL FIBRILLATION (7) Prophylactic measure Code(s): Z29.9 - ENCOUNTER FOR PROPHYLACTIC MEASURES, UNSPECIFIED (8) Hypertensive emergency Code(s): I16.1 - HYPERTENSIVE EMERGENCY
[2019-02-03] MEDS ORDERED: MULTIVITAMINS (DAILY MVI) TABLET (FP) PO SCH (10:00)
[2019-02-03] MEDS ORDERED: FERROUS SO4 325 MG TABLET (FP) PO SCH (10:00)
[2019-02-03] MEDS: CLOPIDOGREL BISULFATE 75 MG TABLET (FP) PO SCH (10:30)
[2019-02-03] MEDS: ASPIRIN 81 MG CHEWABLE TABLETS PO SCH (10:30)
[2019-02-03] MEDS: LISINOPRIL 5 MG TABLET (FP) PO SCH (10:30)
[2019-02-03] MEDS: APIXABAN 5 MG TABLET PO SCH (10:30)
[2019-02-03] MEDS: amLODIPine BESYLATE 10 MG TABLET (FP) PO SCH (10:30)
[2019-02-03] MEDS: AMOX TR/POT CLAV 875MG/125MG TABLETS (FP) PO SCH (10:31)
[2019-02-03] MEDS: CARVEDILOL 12.5 MG TABLET (FP) PO SCH (10:31)
--- NOTE | 2019-02-03 13:00 | PN ---
Progress Note (short form) - Note Progress Note: Overall appears better. No acute events overnight. No CP or SOB. Intake & Output 01/31/19 02/01/19 02/02/19 02/03/19 23:59 23:59 23:59 23:59 Intake Total 6155 912 9318 300 Output Total 1050 Balance 1682 -230 1755 300 Weight 193 lb 203 lb 12.8 oz 207 lb 9.6 oz 211 lb 9.6 oz Last Vital Signs Temp Pulse Resp BP Pulse Ox 97.6 F 73 20 115/73 99 02/03/19 10:00 02/03/19 10:00 02/03/19 10:00 02/03/19 10:00 02/03/19 09:00 Active Medications Acetaminophen (Ofirmev Injection -) 1,000 mg IVPB Q6H PRN PRN Reason: FEVER Amlodipine Besylate (Norvasc -) 10 mg PO DAILY [facility] Last Admin: 02/03/19 10:30 Dose: 10 mg Amoxicillin/Clavulanate Potassium (Augmentin - 875mg Tablet) 1 tab PO BID@0800, 1730 [facility] Last Admin: 02/03/19 10:31 Dose: 1 tab Apixaban (Eliquis -) 5 mg PO BID [facility] Last Admin: 02/03/19 10:30 Dose: 5 mg Aspirin (Asa -) 81 mg PO DAILY [facility] Last Admin: 02/03/19 10:30 Dose: 81 mg Atorvastatin Calcium (Lipitor -) 40 mg PO HS [facility] Last Admin: 02/02/19 22:29 Dose: 40 mg Carvedilol (Coreg -) 12.5 mg PO BID [facility] Last Admin: 02/03/19 10:31 Dose: 12.5 mg Clopidogrel Bisulfate (Plavix -) 75 mg PO DAILY [facility] Last Admin: 02/03/19 10:30 Dose: 75 mg Ferrous Sulfate (Feosol -) 325 mg PO BID [facility] Last Admin: 02/03/19 10:30 Dose: 325 mg Dextrose/Sodium Chloride (D5-1/3ns -) 500 mls @ 83 mls/hr IV ASDIR [facility] Last Admin: 02/02/19 17:23 Dose: 83 mls/hr Labetalol HCl (Normodyne Injection -) 10 mg IVPUSH Q4H PRN PRN Reason: HYPERTENSION Lisinopril (Prinivil) 5 mg PO DAILY [facility] Last Admin: 02/03/19 10:30 Dose: 5 mg Morphine Sulfate (Morphine Sulfate) 0.5 mg IVPUSH Q4H PRN PRN Reason: PAIN LEVEL 7 - 10 Multivitamins/Minerals/Vitamin C (Tab-A-Vit -) 1 tab PO DAILY [facility] Last Admin: 02/03/19 10:30 Dose: 1 tab Quetiapine Fumarate (Seroquel -) 50 mg PO [facility] Last Admin: 02/02/19 22:29 Dose: 50 mg Constitutional: Yes: NAD Eyes: Yes: WNL HENT: Yes: WNL Neck: Yes: WNL Cardiovascular: Yes: Regular Rate and Rhythm, S1, S2 Respiratory: Yes: Clear Gastrointestinal: Yes: Normal Bowel Sounds, Soft Extremities: Yes: WNL Edema: No Labs: Laboratory Results - last 24 hr 02/02/19 02/03/19 02/03/19 16:10 05:54 05:54 WBC 5.9 RBC 2.96 L Hgb 8.0 L Hct 25.1 L MCV 85.0 MCH 26.9 MCHC 31.7 L RDW 15.6 Plt Count 325 MPV 7.8 Absolute Neuts (auto) 3.2 Neutrophils % 54.6 Lymphocytes % 29.9 Monocytes % 13.1 H Eosinophils % 1.7 Basophils % 0.7 Nucleated RBC % 0 PT with INR 17.80 H INR 1.50 H Sodium 142 Potassium 4.6 Chloride 110 H Carbon Dioxide 27 Anion Gap 5 L BUN 29.8 H Creatinine 1.4 H Est GFR (CKD-EPI)AfAm 63.29 Est GFR (CKD-EPI)NonAf 54.60 Random Glucose 89 Calcium 8.6 Magnesium 2.1 Total Bilirubin 0.6 AST 40 H ALT 65 H Alkaline Phosphatase 85 Total Protein 6.4 Albumin 2.7 L Problem List - Problems (1) Acute on chronic systolic and diastolic heart failure, NYHA class 1 Code(s): I50.43 - ACUTE ON CHRONIC COMBINED SYSTOLIC AND DIASTOLIC HRT FAIL (2) Acute respiratory failure with hypoxia and hypercapnia Code(s): J96.01 - ACUTE RESPIRATORY FAILURE WITH HYPOXIA; J96.02 - ACUTE RESPIRATORY FAILURE WITH HYPERCAPNIA (3) Elevated liver enzymes Code(s): R74.8 - ABNORMAL LEVELS OF OTHER SERUM ENZYMES (4) Elevated troponin Code(s): R74.8 - ABNORMAL LEVELS OF OTHER SERUM ENZYMES (5) NSTEMI (non-ST elevated myocardial infarction) Code(s): I21.4 - NON-ST ELEVATION (NSTEMI) MYOCARDIAL INFARCTION (6) Tobacco abuse Code(s): Z72.0 - TOBACCO USE (7) Acute CHF (congestive heart failure) Code(s): I50.9 - HEART FAILURE, UNSPECIFIED (8) Acute metabolic encephalopathy Code(s): G93.41 - METABOLIC ENCEPHALOPATHY (9) Acute pulmonary edema Code(s): J81.0 - ACUTE PULMONARY EDEMA (10) Hypertensive emergency Code(s): I16.1 - HYPERTENSIVE EMERGENCY (11) Acute on chronic diastolic CHF (congestive heart failure) Code(s): I50.33 - ACUTE ON CHRONIC DIASTOLIC (CONGESTIVE) HEART FAILURE (12) CAD (coronary artery disease) Code(s): I25.10 - ATHSCL HEART DISEASE OF [place] CORONARY ARTERY W/O ANG PCTRS Qualifiers: Coronary Disease-Associated Artery/Lesion type: [id number] artery Assessment/Plan Acute Hypoxic and Hypercapneic Respiratory Failure resolved Acute on Chronic Systolic Heart Failure Acute Pulmonary Edema resolved Hypertensive Urgency improved Pneumonia Sepsis Lactic Acidosis Elevated LFTs FABRICIO Smoker Resolved Delerium Anemia Lasix Marilia PO ABX per ID DC planning Dr Dilalrd
--- NOTE | 2019-02-03 14:17 | PN ---
Progress Note, Physician History of Present Illness: Pt seen and examined, chart reviewed. He states he feels better. Denies SOB but with some dry cough intermittently otherwise no CP, abd pain. Remains afebrile. - Current Medication List Current Medications: Active Medications Acetaminophen (Ofirmev Injection -) 1,000 mg IVPB Q6H PRN PRN Reason: FEVER Amlodipine Besylate (Norvasc -) 10 mg PO DAILY [facility] Last Admin: 02/03/19 10:30 Dose: 10 mg Amoxicillin/Clavulanate Potassium (Augmentin - 875mg Tablet) 1 tab PO BID@0800, 1730 [facility] Last Admin: 02/03/19 10:31 Dose: 1 tab Apixaban (Eliquis -) 5 mg PO BID [facility] Last Admin: 02/03/19 10:30 Dose: 5 mg Aspirin (Asa -) 81 mg PO DAILY [facility] Last Admin: 02/03/19 10:30 Dose: 81 mg Atorvastatin Calcium (Lipitor -) 40 mg PO HS [facility] Last Admin: 02/02/19 22:29 Dose: 40 mg Carvedilol (Coreg -) 12.5 mg PO BID [facility] Last Admin: 02/03/19 10:31 Dose: 12.5 mg Clopidogrel Bisulfate (Plavix -) 75 mg PO DAILY [facility] Last Admin: 02/03/19 10:30 Dose: 75 mg Ferrous Sulfate (Feosol -) 325 mg PO BID [facility] Last Admin: 02/03/19 10:30 Dose: 325 mg Dextrose/Sodium Chloride (D5-1/3ns -) 500 mls @ 83 mls/hr IV ASDIR [facility] Last Admin: 02/02/19 17:23 Dose: 83 mls/hr Labetalol HCl (Normodyne Injection -) 10 mg IVPUSH Q4H PRN PRN Reason: HYPERTENSION Lisinopril (Prinivil) 5 mg PO DAILY [facility] Last Admin: 02/03/19 10:30 Dose: 5 mg Morphine Sulfate (Morphine Sulfate) 0.5 mg IVPUSH Q4H PRN PRN Reason: PAIN LEVEL 7 - 10 Multivitamins/Minerals/Vitamin C (Tab-A-Vit -) 1 tab PO DAILY [facility] Last Admin: 02/03/19 10:30 Dose: 1 tab Quetiapine Fumarate (Seroquel -) 50 mg PO HS [facility] Last Admin: 02/02/19 22:29 Dose: 50 mg - Objective Vital Signs: Vital Signs Temperature 97.6 F 02/03/19 10:00 Pulse Rate 73 02/03/19 10:00 Respiratory Rate 20 02/03/19 10:00 Blood Pressure 115/73 02/03/19 10:00 O2 Sat by Pulse Oximetry (%) 99 02/03/19 09:00 Constitutional: Yes: No Distress, Calm Cardiovascular: Yes: Pulse Irregular Respiratory: Yes: CTA Bilaterally Gastrointestinal: Yes: Normal Bowel Sounds, Soft Genitourinary: Yes: WNL Extremities: Yes: WNL Integumentary: Yes: WNL Neurological: Yes: Alert, Oriented Labs: CBC, BMP 02/03/19 05:54 02/03/19 05:54 INR, PTT INR 1.50 (0.83-1.09) H 02/02/19 16:10 Microbiology 01/26/19 05:25 Blood - Peripheral Venous Blood Culture - Final NO GROWTH AFTER 5 DAYS INCUBATION 01/26/19 02:45 Blood - Peripheral Venous Blood Culture - Final NO GROWTH AFTER 5 DAYS INCUBATION 01/25/19 12:00 Sputum - Endotrachea Suction/Ventilator Gram Stain - Final 01/25/19 12:00 Sputum - Endotrachea Suction/Ventilator Sputum Culture - Final Escherichia Coli Staphylococcus Aureus 01/23/19 21:30 Blood - Peripheral Venous Blood Culture - Final NO GROWTH AFTER 5 DAYS INCUBATION 01/23/19 21:15 Blood - Peripheral Venous Blood Culture - Final NO GROWTH AFTER 5 DAYS INCUBATION - ....Imaging Chest X-ray: Report Reviewed Problem List - Problems (1) Acute on chronic systolic and diastolic heart failure, NYHA class 1 Code(s): I50.43 - ACUTE ON CHRONIC COMBINED SYSTOLIC AND DIASTOLIC HRT FAIL (2) Acute pulmonary edema Code(s): J81.0 - ACUTE PULMONARY EDEMA (3) Acute respiratory failure with hypoxia and hypercapnia Code(s): J96.01 - ACUTE RESPIRATORY FAILURE WITH HYPOXIA; J96.02 - ACUTE RESPIRATORY FAILURE WITH HYPERCAPNIA (4) Hypertensive emergency Code(s): I16.1 - HYPERTENSIVE EMERGENCY (5) Lactic acidosis Code(s): E87.2 - ACIDOSIS (6) NSTEMI (non-ST elevated myocardial infarction) Code(s): I21.4 - NON-ST ELEVATION (NSTEMI) MYOCARDIAL INFARCTION (7) Paroxysmal A-fib Code(s): I48.0 - PAROXYSMAL ATRIAL FIBRILLATION (8) Acute CHF (congestive heart failure) Code(s): I50.9 - HEART FAILURE, UNSPECIFIED (9) CAD (coronary artery disease) Code(s): I25.10 - ATHSCL HEART DISEASE OF [place] CORONARY ARTERY W/O ANG PCTRS Qualifiers: Coronary Disease-Associated Artery/Lesion type: [place] artery (10) CKD (chronic kidney disease) Code(s): N18.9 - CHRONIC KIDNEY DISEASE, UNSPECIFIED Qualifiers: Chronic kidney disease stage: unspecified stage Qualified Code(s): N18.9 - Chronic kidney disease, unspecified Assessment/Plan PNA s/p Sepsis Acute hypoxemic respiratory failure requiring intubation - resolved Acute metabolic encephalopathy - resolved Acute CHF Exacerbation NSTEMI CKD Paroxysmal AFIB -- pt clinically improving -- switch to Augmentin -- continue monitor, currently afebrile, without respiratory distress
[2019-02-03 15:15] VITALS: BP 116/73; PULSE 78; TEMP 98.1
--- NOTE | 2019-02-03 17:24 | DS ---
Physical Exam: SUBJECTIVE: Patient requested to sign out AMA. Soke to pt and length with risks of leaving hospital including and still wands to leave. OBJECTIVE: Vital Signs Period Temp Pulse Resp BP Sys/Rosado Pulse Ox Last 24 Hr 97.6 F-98.4 F 63-78 20-20 115-134/73-98 99-99 PHYSICAL EXAM Constitutional: Yes: Well Nourished, No Distress, Calm Eyes: Yes: WNL, Conjunctiva Clear, EOM Intact HENT: Yes: WNL, Atraumatic, Normocephalic Neck: Yes: WNL, Supple, Trachea Midline Cardiovascular: Yes: WNL, Regular Rate and Rhythm Respiratory: Yes: WNL, Regular, Rales (at bases) Gastrointestinal: Yes: WNL, Normal Bowel Sounds, Soft Genitourinary: Yes: WNL Breast(s): Yes: WNL Musculoskeletal: Yes: WNL Extremities: Yes: WNL Edema: Yes Edema: LLE: Trace, RLE: Trace Peripheral Pulses WNL: Yes Integumentary: Yes: WNL Neurological: Yes: WNL, Alert, Oriented ...Motor Strength: WNL Psychiatric: Yes: WNL, Alert, Oriented Labs: CBC, BMP LABS Laboratory Results - last 24 hr 02/02/19 02/03/19 02/03/19 16:10 05:54 05:54 WBC 5.9 RBC 2.96 L Hgb 8.0 L Hct 25.1 L MCV 85.0 MCH 26.9 MCHC 31.7 L RDW 15.6 Plt Count 325 MPV 7.8 Absolute Neuts (auto) 3.2 Neutrophils % 54.6 Lymphocytes % 29.9 Monocytes % 13.1 H Eosinophils % 1.7 Basophils % 0.7 Nucleated RBC % 0 PT with INR 17.80 H INR 1.50 H Sodium 142 Potassium 4.6 Chloride 110 H Carbon Dioxide 27 Anion Gap 5 L BUN 29.8 H Creatinine 1.4 H Est GFR (CKD-EPI)AfAm 63.29 Est GFR (CKD-EPI)NonAf 54.60 Random Glucose 89 Calcium 8.6 Magnesium 2.1 Total Bilirubin 0.6 AST 40 H ALT 65 H Alkaline Phosphatase 85 Troponin I 5.10 H* Total Protein 6.4 Albumin 2.7 L 02/03/19 12:30 WBC RBC Hgb Hct MCV MCH MCHC RDW Plt Count MPV Absolute Neuts (auto) Neutrophils % Lymphocytes % Monocytes % Eosinophils % Basophils % Nucleated RBC % PT with INR INR Sodium Potassium Chloride Carbon Dioxide Anion Gap BUN Creatinine Est GFR (CKD-EPI)AfAm Est GFR (CKD-EPI)NonAf Random Glucose Calcium Magnesium Total Bilirubin AST ALT Alkaline Phosphatase Troponin I 5.01 H* Total Protein Albumin HOSPITAL COURSE: Date of Admission:01/23/19 Date of Discharge: 02/03/19 Patient is a 58 year old male with a significant past medical history of diastolic CHF, aortic aneurysm (w/mild dilation), FABRICIO, HTN, nonobstructive CAD ( multiple caths done at other tertiary care centers), past hx lithotripsy for left nephrolithiasis, active smoker. He presents to [facility] ED for acute respiratory failure. Patient was intubated in the field after he experienced three days of respiratory difficulty. EMS brought him in while intubated, sedated after he was in acute respiratory failure with no audible lung sounds. On arrival he was also noted to have hypertensive emergency 238/185, tachycardic 130s and hypothermic (96.1f). His ABGs show acute respiratory hypercapneic failure. He was place on a Nitroglycerine drip for hypertensive emergency and given vasotec IV with improvement of his BP. imaging: head ct 01/23/19: negative for acute process ekg 01/23/19 - sinus tachycardia, left atrial enlargement chest xray 01/23/19 - large heart, congestive changes, possible retricardio inf Problem List - Problems (1) Acute metabolic encephalopathy Assessment/Plan: resolved avoid any sedating agents frequent re-orientation and family visitation Code(s): G93.41 - METABOLIC ENCEPHALOPATHY (2) Acute respiratory failure with hypoxia and hypercapnia Assessment/Plan: Remains extubated not requiring O2 pulse oximetry , maintain O2 sta >92% with supplemental O2 prn Code(s): J96.01 - ACUTE RESPIRATORY FAILURE WITH HYPOXIA; J96.02 - ACUTE RESPIRATORY FAILURE WITH HYPERCAPNIA (3) Urzui-ug-ujjaava renal failure Assessment/Plan: Cr last week 2.4, now 1.5 lasix back on hold with gentle hydration will continue to trend Cr avoid all nephrotoxic agents c/w lisinipril, if cr rises will place back on hold plan for ST on tue +/- cardiac cath Code(s): N17.9 - ACUTE KIDNEY FAILURE, UNSPECIFIED; N18.9 - CHRONIC KIDNEY DISEASE, UNSPECIFIED (4) Elevated liver enzymes Assessment/Plan: monitor LFTs avoid any hepatotoxic agents Code(s): R74.8 - ABNORMAL LEVELS OF OTHER SERUM ENZYMES (5) Elevated troponin Assessment/Plan: Trop 19.2/21/18.5/14.8 will send no c/o chest pain serial EKGs as needed c/w telemetry cardiology following c/w asa possible cardiac cath in near future Code(s): R74.8 - ABNORMAL LEVELS OF OTHER SERUM ENZYMES (6) Paroxysmal A-fib Code(s): I48.0 - PAROXYSMAL ATRIAL FIBRILLATION Minutes to complete discharge: 30 Discharge Summary Reason For Visit: HYPERTENSIVE URGENCY/ACUTE PULMONARY EDEMA/ Hospital Course: Date of Admission:01/23/19 Date of Discharge: 02/03/19 Patient is a 58 year old male with a significant past medical history of diastolic CHF, aortic aneurysm (w/mild dilation), FABRICIO, HTN, nonobstructive CAD ( multiple caths done at other tertiary care centers), past hx lithotripsy for left nephrolithiasis, active smoker. He presents to [facility] ED for acute respiratory failure. Patient was intubated in the field after he experienced three days of respiratory difficulty. EMS brought him in while intubated, sedated after he was in acute respiratory failure with no audible lung sounds. On arrival he was also noted to have hypertensive emergency 238/185, tachycardic 130s and hypothermic (96.1f). His ABGs show acute respiratory hypercapneic failure. He was place on a Nitroglycerine drip for hypertensive emergency and given vasotec IV with improvement of his BP. imaging: head ct 01/23/19: negative for acute process ekg 01/23/19 - sinus tachycardia, left atrial enlargement chest xray 01/23/19 - large heart, congestive changes, possible retricardio inf Problem List - Problems (1) Acute metabolic encephalopathy Assessment/Plan: resolved avoid any sedating agents frequent re-orientation and family visitation Code(s): G93.41 - METABOLIC ENCEPHALOPATHY (2) Acute respiratory failure with hypoxia and hypercapnia Assessment/Plan: Remains extubated not requiring O2 pulse oximetry , maintain O2 sta >92% with supplemental O2 prn Code(s): J96.01 - ACUTE RESPIRATORY FAILURE WITH HYPOXIA; J96.02 - ACUTE RESPIRATORY FAILURE WITH HYPERCAPNIA (3) Nakus-aq-ulwagku renal failure Assessment/Plan: Cr last week 2.4, now 1.5 lasix back on hold with gentle hydration will continue to trend Cr avoid all nephrotoxic agents c/w lisinipril, if cr rises will place back on hold plan for ST on tue +/- cardiac cath Code(s): N17.9 - ACUTE KIDNEY FAILURE, UNSPECIFIED; N18.9 - CHRONIC KIDNEY DISEASE, UNSPECIFIED (4) Elevated liver enzymes Assessment/Plan: monitor LFTs avoid any hepatotoxic agents Code(s): R74.8 - ABNORMAL LEVELS OF OTHER SERUM ENZYMES (5) Elevated troponin Assessment/Plan: Trop 19.2/21/18.5/14.8 will send no c/o chest pain serial EKGs as needed c/w telemetry cardiology following c/w asa possible cardiac cath in near future Code(s): R74.8 - ABNORMAL LEVELS OF OTHER SERUM ENZYMES (6) Paroxysmal A-fib Code(s): I48.0 - PAROXYSMAL ATRIAL FIBRILLATION - Instructions Diet, Activity, Other Instructions: Low fat low cholesterol diet. ST appointment made with Dr Mills on tuesday ay 1:30pm Referrals: Jonnathan Mills MD [Staff Physician] - 02/05/19 1:30 pm Disposition: AGAINST MEDICAL ADVICE - Home Medications Comprehensive Discharge Medication List: Ambulatory Orders Duloxetine HCl [Cymbalta -] 60 mg PO DAILY 06/29/16 Ferrous Sulfate [Iron] 325 mg PO TID 06/15/18 Folic Acid 1 mg PO DAILY 06/15/18 Tamsulosin HCl [Flomax -] 0.4 mg PO DAILY@0830 cap.er.24h 06/16/18 Amlodipine Besylate [Norvasc -] 10 mg PO DAILY #30 tablet 02/03/19 Amox-Tr/K Cl [Augmentin - 875Mg Tablet] 1 tab PO BID #14 tablet 02/03/19 Amox-Tr/K Cl [Augmentin 875-125mg Tablet -] 1 tab PO BID@0800,1730 #14 tablet Apixaban [Eliquis -] 5 mg PO BID #60 tablet 02/03/19 Aspirin [ASA -] 81 mg PO DAILY tab.chew 02/03/19 Atorvastatin Ca [Lipitor] 40 mg PO HS #30 tablet 02/03/19 Carvedilol [Coreg -] 12.5 mg PO BID #60 tablet 02/03/19 Clopidogrel Bisulfate [Plavix -] 75 mg PO DAILY #30 tablet 02/03/19 Ferrous Sulfate [Feosol] 325 mg PO BID ud 02/03/19 Lisinopril [Prinivil] 5 mg PO DAILY #30 tablet 02/03/19 Quetiapine Fumarate [Seroquel -] 50 mg PO HS #30 tablet 02/03/19 Problem List - Problems (1) Acute metabolic encephalopathy Code(s): G93.41 - METABOLIC ENCEPHALOPATHY (2) Acute respiratory failure with hypoxia and hypercapnia Code(s): J96.01 - ACUTE RESPIRATORY FAILURE WITH HYPOXIA; J96.02 - ACUTE RESPIRATORY FAILURE WITH HYPERCAPNIA (3) Mtkqu-cm-fqdtqmm renal failure Code(s): N17.9 - ACUTE KIDNEY FAILURE, UNSPECIFIED; N18.9 - CHRONIC KIDNEY DISEASE, UNSPECIFIED (4) Elevated liver enzymes Code(s): R74.8 - ABNORMAL LEVELS OF OTHER SERUM ENZYMES (5) Elevated troponin Code(s): R74.8 - ABNORMAL LEVELS OF OTHER SERUM ENZYMES (6) Paroxysmal A-fib Code(s): I48.0 - PAROXYSMAL ATRIAL FIBRILLATION (7) Prophylactic measure Code(s): Z29.9 - ENCOUNTER FOR PROPHYLACTIC MEASURES, UNSPECIFIED (8) Hypertensive emergency Code(s): I16.1 - HYPERTENSIVE EMERGENCY This patient is new to me today: No Emergency Visit: Yes ED Registration Date: 01/23/19 Care time: The patient presented to the Emergency Department on the above date and was hospitalized for further evaluation of their emergent condition. Critical Care patient: No - Discharge Referral Referred to [facility] Med [facility] No
--- NOTE | 2019-02-13 09:36 | EKG ---
Test Reason : Blood Pressure : / mmHG Vent. Rate : 087 BPM Atrial Rate : 087 BPM P-R Int : 164 ms QRS Dur : 096 ms QT Int : 450 ms P-R-T Axes : 040 051 259 degrees QTc Int : 541 ms SINUS RHYTHM WITH PREMATURE ATRIAL COMPLEXES IN A PATTERN OF BIGEMINY VOLTAGE CRITERIA FOR LEFT VENTRICULAR HYPERTROPHY T WAVE ABNORMALITY, CONSIDER INFEROLATERAL ISCHEMIA PROLONGED QT ABNORMAL ECG WHEN COMPARED WITH ECG OF 23-JAN-2019 11:31, PREMATURE VENTRICULAR COMPLEXES ARE NO LONGER PRESENT PREMATURE ATRIAL COMPLEXES ARE NOW PRESENT Confirmed by Alvin Hurley MD ([id number]) on 02/13/2019 9:35:48 AM Referred By: , Confirmed By:Alvin Hurley MD
== END 2019-02-03 16:58 | disposition left against medical advice (07) | DRG 133 ==
LOC: JER 10:14 → JERBED 11:38 → JICU 19:50 → J4W 01-31 18:41
PROVIDERS: ATTEND Nurse Practitioner Acute Care
PROC: 5A1945Z Respiratory Ventilation, 24-96 Consecutive Hours (ICD-10-PCS; principal; 2019-01-23)
DX: J96.02 Acute respiratory failure with hypercapnia (principal); J96.01 Acute respiratory failure with hypoxia; I21.4 Non-ST elevation (NSTEMI) myocardial infarction; I50.43 Acute on chronic combined systolic (congestive) and diastolic (congestive) heart failure; N17.9 Acute kidney failure, unspecified; G93.41 Metabolic encephalopathy; E87.2 Acidosis; I13.0 Hypertensive heart and chronic kidney disease with heart failure and stage 1 through stage 4 chronic kidney disease, or unspecified chronic kidney disease; I48.0 Paroxysmal atrial fibrillation; N18.9 Chronic kidney disease, unspecified; I16.1 Hypertensive emergency; I16.0 Hypertensive urgency; I71.9 Aortic aneurysm of unspecified site, without rupture; R68.0 Hypothermia, not associated with low environmental temperature; F12.10 Cannabis abuse, uncomplicated; N40.0 Benign prostatic hyperplasia without lower urinary tract symptoms; Z91.14 Patient's other noncompliance with medication regimen; G47.33 Obstructive sleep apnea (adult) (pediatric); I25.10 Atherosclerotic heart disease of native coronary artery without angina pectoris; Z98.61 Coronary angioplasty status; R74.8 Abnormal levels of other serum enzymes; Z87.891 Personal history of nicotine dependence; F41.9 Anxiety disorder, unspecified; F32.9 Major depressive disorder, single episode, unspecified
CPT/HCPCS: 36415; 36600; 70450-TC; 71045-TC-FY; 74018-TC-FY; 80048; 80053; 80061; 80307; 81003; 82375; 82436; 82550; 82553; 82565; 82803; 82962; 83036; 83050; 83605; 83721; 83735; 83880; 84100; 84133; 84300; 84484; 84540; 85025; 85610; 85730; 86850; 86900; 86901; 87040; 87070; 87186; 87205; 93005; 93010; 93306-TC; 94002; 99285-25; J0131; J1644; J7030

== ENCOUNTER 2019-05-25 09:54 | Inpatient (IN) | payer OTHER ==
[2019-05-25] MEDS ORDERED: NITROGLYCERIN 25MG/D5W 250ML 25 MG/250 ML ML IVPB ONE ×2 (10:05→11:59)
[2019-05-25] MEDS ORDERED: ALBUTEROL SO4 2.5/IPRATROPIUM 0.5 INH SOL 3 ML VIAL.NEB. NEB PRN (10:10)
[2019-05-25] MEDS ORDERED: ALBUTEROL SO4 2.5/IPRATROPIUM 0.5 INH SOL 3 ML VIAL.NEB. NEB ONE (10:11)
[2019-05-25] MEDS ORDERED: NITROGLYCERIN 25MG/D5W 250ML 25 MG/250 ML ML IVPB SCH (10:15)
[2019-05-25 10:16] LABS: VENOUS PC02 33.4 mmHg (38-52); VENOUS PH 7.32 (7.31-7.41); VENOUS PO2 66.6 mmHg (28-48)
[2019-05-25 10:19] LABS: BASO % 1.1 % (0-2.0); EOS % 3.7 % (0-4.5); HEMATOCRIT 32.5 % (35.4-49); HEMOGLOBIN 10.1 GM/dL (11.7-16.9); LYMPH % 38.2 % (8-40); MCH 26.8 pg (25.7-33.7); MCHC 31.2 g/dl (32.0-35.9); MEAN CELL VOLUME 86.1 fl (80-96); MEAN PLT VOLUME 8.1 fl (7.5-11.1); MONO % 8.7 % (3.8-10.2); NEUT % 48.3 % (42.8-82.8); PLATELET COUNT 174 K/MM3 (134-434); RBC 3.78 M/mm3 (4.00-5.60); WHITE BLOOD COUNT 4.2 K/mm3 (4.0-10.0)
[2019-05-25] MEDS ORDERED: FUROSEMIDE 40 MG/4 ML INJECTABLE VIAL IVPUSH ONE (10:24)
[2019-05-25 10:27] LABS: ARTERIAL BLOOD GAS pH 7.37 (7.35-7.45)
[2019-05-25 10:28] LABS: ALLENS TEST POSITIVE; ARTERIAL BLD GAS O2 SATURATION 99.7 % (95-98); ARTERIAL BLOOD GAS BASE EXCESS -5.8 meq/l (-2-2); ARTERIAL BLOOD GAS PCO2 31.9 mmHg (35-45); ARTERIAL BLOOD GAS PO2 250 mmHg (80-100); CARBOXYHEMOGLOBIN 3.2 % (0-2)
[2019-05-25] MEDS ORDERED: FUROSEMIDE 40 MG/4 ML INJECTABLE VIAL ONE (10:30)
--- NOTE | 2019-05-25 10:33 | PDOC ---
Attending Attestation - Resident Resident Name: Hyun Harris - ED Attending Attestation I have performed the following: I have examined & evaluated the patient, The case was reviewed & discussed with the resident, I agree w/resident's findings & plan, Exceptions are as noted - HPI HPI: 05/25/19 10:28 58 M with h/o CHF EF 45% 12/2017, sleep apnea, HTN, smoker, presenting to ED with SOB. Pt reports feeling unwell for several days with progressively worsening SOB that acutely worsened today. He reports mild chest pain. Has not noticed any significant pitting edema. Pt was placed on CPAP by EMS and given 2 SL nitros, which he states helped a little. In ED, pt was hypertensive to 160/120. Pt was placed on BIPAP with in-line nebulizers Nitro gtt initiated at 200mcg/min IV Lasix administered - Physicial Exam PE: 05/25/19 10:31 "GENERAL: Awake, alert, and fully oriented, in severe respiratory distress HEAD: No signs of trauma EYES: PERRLA, EOMI, sclera anicteric, conjunctiva clear ENT: Auricles normal inspection, hearing grossly normal, nares patent, oropharynx clear without exudates. Moist mucosa NECK: Nontender, no stepoffs, Normal ROM, supple, no lymphadenopathy, JVD, or masses LUNGS: Breath sounds equal, clear to auscultation bilaterally. No wheezes, and no crackles HEART: Regular rate and rhythm, normal S1 and S2, no murmurs, rubs or gallops ABDOMEN: Soft, nontender, normoactive bowel sounds. No guarding, no rebound. No masses EXTREMITIES: Normal range of motion, no edema. No clubbing or cyanosis. No cords, erythema, or tenderness NEUROLOGICAL: Cranial nerves II through XII intact. 5/5 strength and sensation in all extremities, Normal speech, normal gait, normal cerebellar function SKIN: Warm, Dry, normal turgor, no rashes or lesions noted. - Critical Care Time Total Critical Care Time: 60 Critical Care Statement: The care of this patient involved high complexity decision making to prevent further life threatening deterioration of the patient 's condition and/or to evaluate & treat vital organ system(s) failure or risk of failure. - Medical Decision Making 05/25/19 10:33 58 M with respiratory distress, likely 2/2 acute pulmonary edema. - Labs - CXR - Nitro gtt - Lasix IV - BIPAP
[2019-05-25 10:39] LABS: INR 1.11 (0.83-1.09); PROTHROMBIN TIME (PATIENT) 13.1 SEC (9.7-13.0)
[2019-05-25 10:42] LABS: ACTIVATED PTT 24.7 SECONDS (25.2-36.5)
[2019-05-25 10:48] LABS: ALBUMIN 3.4 g/dl (3.4-5.0); BILIRUBIN,TOTAL 0.6 mg/dL (0.2-1); BLOOD UREA NITROGEN 24.4 mg/dL (7-18); CALCIUM 8.6 mg/dL (8.5-10.1); CREATININE 1.6 mg/dL (0.55-1.3); POTASSIUM 3.5 mmol/L (3.5-5.1); TOT PROT 7.3 g/dl (6.4-8.2)
--- NOTE | 2019-05-25 10:50 | PDOC ---
History of Present Illness - General Chief Complaint: Shortness of Breath Stated Complaint: SOB Time Seen by Provider: 05/25/19 10:04 History Source: Patient, EMS, Family (Son) Exam Limitations: No Limitations - History of Present Illness Initial Comments: Pt is a 58 yo M, with PMH of CHF (frequent exacerbations, intubated in the past) , CAD (s/p stent x1, on Plavix), arrhythmia? (with loop recorder), HTN, HLD, and anemia, who is presenting with severe SOB and chest pressure since this morning. Pt began having SOB this morning when he got up to use the bathroom, with mild chest pressure which is non-radiating, and not associated with nausea/ vomiting/diaphoresis. Pt states his diet "hasn't been right," but endorses medication compliance (including Lasix 40 Qday). Pt denies any fevers/chills, headache, vision changes, cough or sputum change from baseline, syncope, palpitations, nausea/vomiting, abdominal pain, urinary symptoms, diarrhea/ constipation, or leg swelling. Allergies: adhesives PCP: Dr. Patricia Cards: Dr. Rooney Social: Pt smokes cigarettes daily. Pt denies any alcohol or drug use. Pt denies any recent travel or sick contacts. Surgical: loop recorder, cardiac stent Family: no relevant history. 05/25/19 10:48 Past History - Travel Traveled outside of the country in the last 30 days: No Close contact w/someone who was outside of country & ill: No - Past Medical History Allergies/Adverse Reactions: Allergies Allergy/AdvReac Type Severity Reaction Status Date / Time adhesive tape Allergy Verified 05/25/19 10:05 Home Medications: Ambulatory Orders Carvedilol 25 mg PO DAILY 05/25/19 Duloxetine HCl 60 mg PO DAILY 05/25/19 Ferrous Sulfate 325 mg PO TID 05/25/19 Folic Acid 1 mg PO DAILY 05/25/19 Furosemide [Lasix] 40 mg PO DAILY 05/25/19 Metoclopramide HCl 5 mg PO TID 05/25/19 Mirtazapine 15 mg PO DAILY 05/25/19 Nifedipine [Procardia Xl] 90 mg PO DAILY 05/25/19 Potassium Chloride 20 meq PO DAILY 05/25/19 Ubidecarenone [Co Q10] 200 mg PO DAILY 05/25/19 Vitamin B Complex [B Complex] 1 each PO DAILY 05/25/19 Zolpidem Tartrate [Ambien] 10 mg PO HS 05/25/19 Anemia: No Asthma: No Cancer: No Cardiac Disorders: Yes (A.FIB FROM AORTIC ANEURYSM. stent) CVA: No COPD: No CHF: Yes Dementia: No Diabetes: No GI Disorders: Yes (COLON ADENOMA, NAUSEA) Disorders: Yes (BPH) HTN: Yes Hypercholesterolemia: No Kidney Stones: Yes Liver Disease: No Seizures: No Thyroid Disease: No - Surgical History Abdominal Surgery: No Appendectomy: No Cardiac Surgery: Yes (Pacemaker) Cholecystectomy: No GI Surgery: (KIDNEY SX) Lung Surgery: No Neurologic Surgery: No Orthopedic Surgery: No - Psycho Social/Smoking Cessation Hx Smoking Status: Yes Smoking History: Current every day smoker Have you smoked in the past 12 months: No Number of Cigarettes Smoked Daily: 6 Information on smoking cessation initiated: No 'Breaking Loose' booklet given: 01/09/18 Hx Alcohol Use: No Drug/Substance Use Hx: No Substance Use Type: Marijuana Hx Substance Use Treatment: No Respiratory Specific PMHX - Complaint Specific PMHX Hx Airway Support: Yes Hx Intubation: Yes Hx Asthma: No Hx Smoking Exposure: Yes Hx Vaping: No Hx Allergic Rhinitis: No Hx Exposure to Respiratory Irritants: No Hx Bronchitis: No Hx Pneumonia: No Hx Pulmonary Embolus: No Hx TB (Tuberculosis): No Review of Systems - Review of Systems Able to Perform ROS?: Yes Is the patient limited Swedish proficient: No Constitutional: Yes: Weight Stable. No: Chills, Fever, Loss of Appetite, Malaise, Weakness HEENTM: No: Recent change in vision, Nose Congestion, Throat Pain, Throat Swelling, Difficulty Swallowing Respiratory: Yes: Shortness of Breath, SOB with Exertion, SOB at Rest. No: Cough, Orthopnea, Wheezing, Productive cough, Hemoptysis Cardiac (ROS): Yes: Chest Pain, Chest Tightness. No: Edema, Irregular Heart Rate, Lightheadedness, Palpitations, Syncope ABD/GI: No: Blood Streaked Bowels, Constipated, Diarrhea, Nausea, Poor Appetite , Poor Fluid Intake, Rectal Bleeding, Vomiting : No: Burning, Dysuria, Frequency, Flank Pain, Hematuria, Pain, Urgency Musculoskeletal: No: Back Pain, Muscle Pain, Muscle Weakness Integumentary: Yes: Other (diffuse skin itching since starting new medications) . No: Rash Neurological: No: Headache, Numbness, Weakness, Unsteady Gait, Dizziness Psychiatric: No: Sleep Pattern Change, Change in Appetite Endocrine: No: Increased Urine, Change in Weight Hematologic/Lymphatic: Yes: Blood Clots (CAD). No: Anemia, Easy Bleeding, Easy Bruising All Other Systems: Reviewed and Negative *Physical Exam - Vital Signs Last Vital Signs Temp Pulse Resp BP Pulse Ox 91 H 22 H 141/111 H 100 05/25/19 10:16 05/25/19 09:55 05/25/19 10:16 05/25/19 10:05 - Physical Exam Pt on Bipap on arrival, with HTN, 100% on bipap. Pt in acute distress, increased WOB on bipap, can speak in short sentences. Normal body habitus. Pt alert and oriented x3. poundmaster generally intact, muscular strength and sensation intact. No midline spinal tenderness, step-offs, or crepitus. Head normocephalic, atraumatic. Eyes PERRLA, EOMI. Oropharynx without erythema or exudates, no LAD b/l. No nasal congestion. Hearing intact. Clear heart sounds, S1/S2, no JVD, or heart murmur. +mild b/l pitting edema to mid-shins Diminished lung sounds posterior bases b/l, with no wheezes or crackles. + accessory muscle use and abdominal breathing. No abdominal or CVA tenderness to palpation, no rebound, no guarding. Abdomen soft, non-distended, and with normoactive bowel sounds. Skin without jaundice or rash. +excoriations on extremities (pt states from scratching himself). 05/25/19 10:57 05/25/19 11:47 ED Treatment Course - LABORATORY CBC & Chemistry Diagram: 05/25/19 10:10 05/25/19 10:10 - ADDITIONAL ORDERS Additional order review: Laboratory Results 05/25/19 05/25/19 05/25/19 10:15 10:10 10:10 PT with INR 13.10 H INR 1.11 H PTT (Actin FS) 24.7 L Anticoagulation Therapy No Result Required. Puncture Site Left radial ABG pH 7.37 ABG pCO2 at Pt Temp 31.9 L ABG pO2 at Pt Temp 250 H ABG HCO3 18.2 L ABG O2 Sat (Measured) 99.7 H ABG O2 Content 13.4 ABG Base Excess -5.8 L Jasvir Test Positive VBG pH POC VBG pCO2 POC VBG pO2 VBG HCO3 VBG O2 Sat (Kristi) VBG Base Excess Carboxyhemoglobin 3.2 H Methemoglobin < 1.0 O2 Delivery Device Bipap Oxygen Flow Rate 60 Vent Mode No Result Required. Vent Rate 10 Mechanical Rate No Result Required. Pressure Support Vent 16/6 B-Natriuretic Peptide 3247.6 H 05/25/19 10:10 PT with INR INR PTT (Actin FS) Anticoagulation Therapy Puncture Site ABG pH ABG pCO2 at Pt Temp ABG pO2 at Pt Temp ABG HCO3 ABG O2 Sat (Measured) ABG O2 Content ABG Base Excess Jasvir Test VBG pH 7.32 POC VBG pCO2 33.4 L POC VBG pO2 66.6 H VBG HCO3 16.6 L VBG O2 Sat (Kristi) 89.9 H VBG Base Excess -8.2 L Carboxyhemoglobin Methemoglobin O2 Delivery Device Oxygen Flow Rate Vent Mode Vent Rate Mechanical Rate Pressure Support Vent B-Natriuretic Peptide 05/25/19 10:10 RBC 3.78 L MCV 86.1 MCHC 31.2 L RDW 16.0 H MPV 8.1 Neutrophils % 48.3 Lymphocytes % 38.2 D Monocytes % 8.7 Eosinophils % 3.7 D Basophils % 1.1 - RADIOLOGY Radiology Studies Ordered: Category Date Time Status CHEST X-RAY PORTABLE* [RAD] Stat Radiology 05/25/19 10:05 Ordered - Medications Given in the ED: ED Medications Discontinued Medications Generic Name Dose Route Start Last Admin Trade Name Freq PRN Reason Stop Dose Admin Albuterol/Ipratropium 1 amp 05/25/19 10:10 05/25/19 10:05 Duoneb - NEB 05/25/19 10:31 1 amp Q15M PRN Administration WHEEZING Furosemide 40 mg 05/25/19 10:24 05/25/19 10:40 Lasix Injection - IVPUSH 05/25/19 10:25 40 mg ONCE ONE Administration Medical Decision Making - Medical Decision Making Pt was seen at bedside, also will be seen by attending Dr. Ha. Pt presenting with acute dyspnea, frequent CHF exacerbation with diastolic dysfunction, pt states compliance with medications. Pt has required airway assistance and intubation in the past. No known pulmonary history, but pt is a smoker. Considering ACS vs CHF exacerbation vs pleural/cardiac effusions vs infection/ pneumonia. Pt responsive to NG and oxygenating well with bipap, is on AC, less likely PE. Provided duonebs and NG drip (200 mcg) for improvement of SOB and chest pressure. Pt on BIPAP, will intubate if pt does not improve with NG. Will continue to reassess pt and monitor for symptomatic improvement. ECG: Sinus with PACs/PVCs. TWIs in V5-V6, with no significant ST segment changes. No significant changes from prior ECG (05/25/2019). 05/25/19 11:50 CBC and CMP within pts normal baseline for anemia, kidney function Trop elevated, consistent with prior visits, with no new EKG changes Chest x-ray with diffuse congestive changes. Bedside US shows b-lines b/l with decreased EF. Pt has improved significantly with bipap and NG; also provided 40 mg IV push lasix. BP maintaining 140s/110s -- will keep on NG drip and bipap Paged hospitalist team for admission 11:22. 05/25/19 11:52 Pt accepted to hospitalist team (Dr. Key). Will keep on BiPAP and NG drip. Pt currently stable and comfortable. 05/25/19 13:12 Discharge - Discharge Information Problems reviewed: Yes Clinical Impression/Diagnosis: Acute on chronic diastolic CHF (congestive heart failure), Troponin I above reference range Respiratory failure Qualifiers: Chronicity: acute Respiratory failure complication: hypoxia Qualified Code(s): J96.01 - Acute respiratory failure with hypoxia Condition: Stable - Admission Yes - Follow up/Referral - Patient Discharge Instructions - Post Discharge Activity
[2019-05-25 11:38] LABS: PH,URINE 6.5 (5.0-8.0); URINE APPEARANCE CLEAR; URINE BILIRUBIN NEGATIVE (NEGATIVE); URINE COLOR YELLOW; URINE GLUCOSE (UA) TRACE (NEGATIVE); URINE KETONE NEGATIVE (NEGATIVE); URINE LEUK ESTERASE NEGATIVE (NEGATIVE); URINE NITRITE NEGATIVE (NEGATIVE); URINE PROTEIN 2+ (NEGATIVE); URINE UROBILINOGEN 0.2 mg/dL (0.2-1.0)
--- NOTE | 2019-05-25 11:38 | EKG ---
Test Reason : Blood Pressure : / mmHG Vent. Rate : 093 BPM Atrial Rate : 093 BPM P-R Int : 164 ms QRS Dur : 100 ms QT Int : 428 ms P-R-T Axes : 033 030 119 degrees QTc Int : 532 ms POOR DATA QUALITY, INTERPRETATION MAY BE ADVERSELY AFFECTED SINUS RHYTHM WITH PREMATURE SUPRAVENTRICULAR COMPLEXES LEFT VENTRICULAR HYPERTROPHY WITH REPOLARIZATION ABNORMALITY ABNORMAL ECG Confirmed by PENNY DICKSON MD ([id number]) on 05/25/2019 11:37:46 AM Referred By: Confirmed By:PENNY DICKSON MD
[2019-05-25] MEDS ORDERED: ASPIRIN 325 MG TABLET PO ONE (11:52)
[2019-05-25] MEDS ORDERED: ASPIRIN 325 MG ENTERIC COATED TABLET (FP) ONE (11:59)
[2019-05-25 12:08] LABS: EPI CELLS 0-5 /HPF (0-5/HPF); HYALINE CASTS 0-8 /lpf (0-8); URINE WBC 0-5 /hpf (0-5)
[2019-05-25 12:09] LABS: URINE BACTERIA POSITIVE /hpf (NEGATIVE)
[2019-05-25] MEDS ORDERED: CARVEDILOL 25 MG TABLET (FP) PO ONE (13:26)
[2019-05-25] MEDS ORDERED: NIFEdipine E.R. 90 MG TABLET (FP) PO STA (13:26)
[2019-05-25] MEDS ORDERED: CARVEDILOL 12.5 MG TABLET (FP) ONE (13:29)
[2019-05-25] MEDS ORDERED: NIFEdipine E.R. 30 MG TABLET (FP) ONE (13:29)
--- NOTE | 2019-05-25 14:18 | HP ---
CHIEF COMPLAINT: shortness of breath PCP: Dr. Patricia, PCP. Dr. Etienne, cardiology HISTORY OF PRESENT ILLNESS: Patient is a 58 year old male with a significant past medical history of diastolic CHF, aortic aneurysm (w/mild dilation), FABRICIO, HTN, nonobstructive CAD ( multiple caths done at other tertiary care centers), past hx lithotripsy for left nephrolithiasis, active smoker (6 cigarettes per day and marijuana) s/p loop recorder 2 months ago. He presents to [facility] ED for acute respiratory failure and chest pressure, non radiating. Patient reports three days of respiratory difficulty and was brought in via EMS. On arrival he was also noted to be hypertensive and tachycardic. His ABGs show acute respiratory hypercapneic failure. He was place on a Nitroglycerine drip for hypertensive emergency with improvement of his BP. Lasix 40mg pushes given. Patient most recently here on 01/2019 with same presentation and intubated in the field. He endorses medication non compliance because of side effects (gets dizzy and nauseaous). Pt denies any fevers/chills, headache, vision changes, cough or sputum change from baseline, syncope, palpitations, nausea/vomiting, abdominal pain, urinary symptoms, diarrhea/constipation, or leg swelling. ED course notable for: -duonebs and NG drip (200 mcg) -ECG: Sinus with PACs/PVCs. TWIs in V5-V6, with no significant ST segment changes. No significant changes from prior ECG (05/25/2019). -Trop elevated -Chest x-ray with diffuse congestive changes. -Bedside US in ED shows b-lines b/l with decreased EF -Pt has improved significantly with bipap and NG; also provided 40 mg IV push lasix. -creatinine 1.6 -bnp 3247 -trop + 0.92, trending q 6 hrs Recent Travel: denies PAST MEDICAL HISTORY: see above PAST SURGICAL HISTORY: see above Social History: Smoking: yes 6 cigarettes Alcohol: none reported Drugs: marijuana Allergies adhesive tape Allergy (Verified 05/25/19 10:05) HOME MEDICATIONS: Home Medications Medication Instructions Recorded Carvedilol 25 mg PO DAILY 05/25/19 Duloxetine HCl 60 mg PO DAILY 05/25/19 Ferrous Sulfate 325 mg PO TID 05/25/19 Folic Acid 1 mg PO DAILY 05/25/19 Furosemide [Lasix] 40 mg PO DAILY 05/25/19 Metoclopramide HCl 5 mg PO TID 05/25/19 Mirtazapine 15 mg PO DAILY 05/25/19 Nifedipine [Procardia Xl] 90 mg PO DAILY 05/25/19 Potassium Chloride 20 meq PO DAILY 05/25/19 Ubidecarenone [Co Q10] 200 mg PO DAILY 05/25/19 Vitamin B Complex [B Complex] 1 each PO DAILY 05/25/19 Zolpidem Tartrate [Ambien] 10 mg PO HS 05/25/19 PHYSICAL EXAMINATION Vital Signs - 24 hr 05/25/19 05/25/19 05/25/19 09:55 10:00 10:05 Pulse Rate 101 H Pulse Rate [ 102 H Apical] Respiratory 22 H Rate Blood Pressure 162/130 H Blood Pressure 162/130 H [Right Arm] O2 Sat by Pulse 97 100 100 Oximetry (%) 05/25/19 05/25/19 05/25/19 10:10 10:13 10:15 Pulse Rate Pulse Rate [ 89 92 H 90 Apical] Respiratory Rate Blood Pressure Blood Pressure 138/87 135/106 H 155/122 H [Right Arm] O2 Sat by Pulse Oximetry (%) 05/25/19 05/25/19 05/25/19 10:16 10:58 11:30 Pulse Rate Pulse Rate [ 91 H 81 79 Apical] Respiratory 18 Rate Blood Pressure Blood Pressure 141/111 H 146/110 H 155/117 H [Right Arm] O2 Sat by Pulse 100 Oximetry (%) 05/25/19 05/25/19 05/25/19 12:05 13:06 13:45 Pulse Rate Pulse Rate [ 86 78 82 Apical] Respiratory 22 H 20 18 Rate Blood Pressure Blood Pressure 159/117 H 162/118 H 152/89 [Right Arm] O2 Sat by Pulse 100 100 98 Oximetry (%) GENERAL: Awake, alert, and fully oriented, in no acute distress. HEAD: Normal with no signs of trauma. EYES: Pupils equal, round and reactive to light, extraocular movements intact, sclera anicteric, conjunctiva clear. No lid lag. EARS, NOSE, THROAT: Ears normal, nares patent, oropharynx clear without exudates. Moist mucous membranes. NECK: Normal range of motion, supple without lymphadenopathy, JVD, or masses. LUNGS: Breath sounds equal, diminished bilaterally HEART: Regular rate and rhythm ABDOMEN: Soft, nontender, not distended, normoactive bowel sounds, no guarding, no rebound, no masses. No hepatomegaly or splenomegaly. MUSCULOSKELETAL: Normal range of motion at all joints. No bony deformities or tenderness. No CVA tenderness. UPPER EXTREMITIES: No peripheral edema. LOWER EXTREMITIES: No peripheral edema. NEUROLOGICAL: Normal speech. PSYCHIATRIC: Cooperative. Good eye contact. Appropriate mood and affect. SKIN: Warm, dry, normal turgor, no rashes or lesions noted, normal capillary refill. Laboratory Results - last 24 hr 05/25/19 05/25/19 05/25/19 10:10 10:10 10:10 WBC 4.2 RBC 3.78 L Hgb 10.1 L Hct 32.5 L D MCV 86.1 MCH 26.8 MCHC 31.2 L RDW 16.0 H Plt Count 174 D MPV 8.1 Absolute Neuts (auto) 2.0 Neutrophils % 48.3 Lymphocytes % 38.2 D Monocytes % 8.7 Eosinophils % 3.7 D Basophils % 1.1 Nucleated RBC % 0 PT with INR INR PTT (Actin FS) Anticoagulation Therapy Puncture Site ABG pH ABG pCO2 at Pt Temp ABG pO2 at Pt Temp ABG HCO3 ABG O2 Sat (Measured) ABG O2 Content ABG Base Excess Jasvir Test VBG pH 7.32 POC VBG pCO2 33.4 L POC VBG pO2 66.6 H VBG HCO3 16.6 L VBG O2 Sat (Kristi) 89.9 H VBG Base Excess -8.2 L Carboxyhemoglobin Methemoglobin O2 Delivery Device Oxygen Flow Rate Vent Mode Vent Rate Mechanical Rate Pressure Support Vent Sodium 143 Potassium 3.5 Chloride 113 H Carbon Dioxide 19 L Anion Gap 11 BUN 24.4 H Creatinine 1.6 H Est GFR (CKD-EPI)AfAm 53.85 Est GFR (CKD-EPI)NonAf 46.46 Random Glucose 171 H Calcium 8.6 Total Bilirubin 0.6 AST 98 H ALT 69 H Alkaline Phosphatase 106 Creatine Kinase 108 Troponin I 0.92 H* B-Natriuretic Peptide Total Protein 7.3 Albumin 3.4 Urine Color Urine Appearance Urine pH Ur Specific [place] Urine Protein Urine Glucose (UA) Urine Ketones Urine Blood Urine Nitrite Urine Bilirubin Urine Urobilinogen Ur Leukocyte Esterase Urine WBC (Auto) Urine RBC (Auto) Urine Casts (Auto) U Epithel Cells (Auto) Urine Bacteria (Auto) 05/25/19 05/25/19 05/25/19 10:10 10:10 10:15 WBC RBC Hgb Hct MCV MCH MCHC RDW Plt Count MPV Absolute Neuts (auto) Neutrophils % Lymphocytes % Monocytes % Eosinophils % Basophils % Nucleated RBC % PT with INR 13.10 H INR 1.11 H PTT (Actin FS) 24.7 L Anticoagulation Therapy No Result Required. Puncture Site Left radial ABG pH 7.37 ABG pCO2 at Pt Temp 31.9 L ABG pO2 at Pt Temp 250 H ABG HCO3 18.2 L ABG O2 Sat (Measured) 99.7 H ABG O2 Content 13.4 ABG Base Excess -5.8 L Jasvir Test Positive VBG pH POC VBG pCO2 POC VBG pO2 VBG HCO3 VBG O2 Sat (Kristi) VBG Base Excess Carboxyhemoglobin 3.2 H Methemoglobin < 1.0 O2 Delivery Device Bipap Oxygen Flow Rate 60 Vent Mode No Result Required. Vent Rate 10 Mechanical Rate No Result Required. Pressure Support Vent 16/6 Sodium Potassium Chloride Carbon Dioxide Anion Gap BUN Creatinine Est GFR (CKD-EPI)AfAm Est GFR (CKD-EPI)NonAf Random Glucose Calcium Total Bilirubin AST ALT Alkaline Phosphatase Creatine Kinase Troponin I B-Natriuretic Peptide 3247.6 H Total Protein Albumin Urine Color Urine Appearance Urine pH Ur Specific [place] Urine Protein Urine Glucose (UA) Urine Ketones Urine Blood Urine Nitrite Urine Bilirubin Urine Urobilinogen Ur Leukocyte Esterase Urine WBC (Auto) Urine RBC (Auto) Urine Casts (Auto) U Epithel Cells (Auto) Urine Bacteria (Auto) 05/25/19 11:12 WBC RBC Hgb Hct MCV MCH MCHC RDW Plt Count MPV Absolute Neuts (auto) Neutrophils % Lymphocytes % Monocytes % Eosinophils % Basophils % Nucleated RBC % PT with INR INR PTT (Actin FS) Anticoagulation Therapy Puncture Site ABG pH ABG pCO2 at Pt Temp ABG pO2 at Pt Temp ABG HCO3 ABG O2 Sat (Measured) ABG O2 Content ABG Base Excess Jasvir Test VBG pH POC VBG pCO2 POC VBG pO2 VBG HCO3 VBG O2 Sat (Kristi) VBG Base Excess Carboxyhemoglobin Methemoglobin O2 Delivery Device Oxygen Flow Rate Vent Mode Vent Rate Mechanical Rate Pressure Support Vent Sodium Potassium Chloride Carbon Dioxide Anion Gap BUN Creatinine Est GFR (CKD-EPI)AfAm Est GFR (CKD-EPI)NonAf Random Glucose Calcium Total Bilirubin AST ALT Alkaline Phosphatase Creatine Kinase Troponin I B-Natriuretic Peptide Total Protein Albumin Urine Color Yellow Urine Appearance Clear Urine pH 6.5 Ur Specific [place] 1.011 Urine Protein 2+ H Urine Glucose (UA) Trace Urine Ketones Negative Urine Blood 2+ H Urine Nitrite Negative Urine Bilirubin Negative Urine Urobilinogen 0.2 Ur Leukocyte Esterase Negative Urine WBC (Auto) 0-5 Urine RBC (Auto) 5-10 Urine Casts (Auto) 0-8 U Epithel Cells (Auto) 0-5 Urine Bacteria (Auto) Positive ASSESSMENT/PLAN: Problem List - Problem (1) Hypertensive emergency Assessment/Plan: per cardiology, increased IV lasix to BID discontinue ngt drip change nifedipine to norvasc Carvedilol bid low dose STELLA once renal function more stable repeat ECHO Code(s): I16.1 - HYPERTENSIVE EMERGENCY (2) Acute on chronic diastolic CHF (congestive heart failure) Assessment/Plan: placed on bipap in the ED, given lasix and placed on NTG drip NTG discontinued and currently tolerating nasal cannula s/p lasix monitor intake and output daily weights maintain oxygen saturations above 90% Code(s): I50.33 - ACUTE ON CHRONIC DIASTOLIC (CONGESTIVE) HEART FAILURE (3) Troponin I above reference range Assessment/Plan: had chest pain on presentation and placed on nitro drip. chest pain resolved and off nitro drip Trop elevated, consistent with prior visits, with no new EKG changes cardiology following Code(s): R74.8 - ABNORMAL LEVELS OF OTHER SERUM ENZYMES (4) Acute on chronic renal failure Assessment/Plan: monitor daily Code(s): N17.9 - ACUTE KIDNEY FAILURE, UNSPECIFIED; N18.9 - CHRONIC KIDNEY DISEASE, UNSPECIFIED (5) Acute respiratory failure with hypoxia and hypercapnia Code(s): J96.01 - ACUTE RESPIRATORY FAILURE WITH HYPOXIA; J96.02 - ACUTE RESPIRATORY FAILURE WITH HYPERCAPNIA (6) Tobacco abuse Assessment/Plan: nicotine patch Code(s): Z72.0 - TOBACCO USE (7) Acute pulmonary edema Assessment/Plan: on lasix bid monitor weights, renal function Code(s): J81.0 - ACUTE PULMONARY EDEMA Visit type - Emergency Visit Emergency Visit: Yes ED Registration Date: 05/25/19 Care time: The patient presented to the Emergency Department on the above date and was hospitalized for further evaluation of their emergent condition. - New Patient This patient is new to me today: Yes Date on this admission: 05/25/19 - Critical Care Critical Care patient: No
[2019-05-25] MEDS ORDERED: ACETAMINOPHEN 325 MG TABLET (FP) PO PRN (15:37)
[2019-05-25 15:53] VITALS: BMI 26.4
--- NOTE | 2019-05-25 16:02 | CON.CARD ---
Consult Consult Specialty:: Cardiology - History of Present Illness History of Present Illness: Pt is a 58 yo M, with PMH of CHF (frequent exacerbations, intubated in the past) , CAD (s/p stent x1, on Plavix), arrhythmia? (with loop recorder), HTN, HLD, and anemia, who is presenting with severe SOB and chest pressure since this morning. Pt began having SOB this morning when he got up to use the bathroom, with mild chest pressure which is non-radiating, and not associated with nausea/ vomiting/diaphoresis. Pt states his diet "hasn't been right," but endorses medication compliance (including Lasix 40 Qday). Pt denies any fevers/chills, headache, vision changes, cough or sputum change from baseline, syncope, palpitations, nausea/vomiting, abdominal pain, urinary symptoms, diarrhea/ constipation, or leg swelling. - History Source History Provided By: Patient, Medical Record - Past Medical History Cardio/Vascular: Yes: CAD (non-obstx), CHF (Chronic systolic and diastolic CHF) , HTN, Other (NSVT) Pulmonary: Yes: Sleep Apnea Renal/: Yes: Renal Inusuff, Renal Calculi Psych: Yes: Depression - Alcohol/Substance Use Hx Alcohol Use: No History of Substance Use: reports: Marijuana - Smoking History Smoking history: Current every day smoker Have you smoked in the past 12 months: No Aproximately how many cigarettes per day: 6 - Social History Usual Living Arrangement: With Spouse ADL: Independent Occupation: currently unemployed Home Medications - Allergies Allergies/Adverse Reactions: Allergies Allergy/AdvReac Type Severity Reaction Status Date / Time adhesive tape Allergy Verified 05/25/19 10:05 - Home Medications Home Medications: Ambulatory Orders Carvedilol 25 mg PO DAILY 05/25/19 Duloxetine HCl 60 mg PO DAILY 05/25/19 Ferrous Sulfate 325 mg PO TID 05/25/19 Folic Acid 1 mg PO DAILY 05/25/19 Furosemide [Lasix] 40 mg PO DAILY 05/25/19 Metoclopramide HCl 5 mg PO TID 05/25/19 Mirtazapine 15 mg PO DAILY 05/25/19 Nifedipine [Procardia Xl] 90 mg PO DAILY 05/25/19 Potassium Chloride 20 meq PO DAILY 05/25/19 Ubidecarenone [Co Q10] 200 mg PO DAILY 05/25/19 Vitamin B Complex [B Complex] 1 each PO DAILY 05/25/19 Zolpidem Tartrate [Ambien] 10 mg PO HS 05/25/19 Review of Systems - Review of Systems Constitutional: reports: No Symptoms Eyes: reports: No Symptoms HENT: reports: No Symptoms Neck: reports: No Symptoms Cardiovascular: reports: Shortness of Breath Respiratory: reports: SOB, SOB on Exertion Gastrointestinal: reports: No Symptoms Genitourinary: reports: No Symptoms Breasts: reports: No Symptoms Reported Musculoskeletal: reports: No Symptoms Integumentary: reports: No Symptoms Neurological: reports: No Symptoms Endocrine: reports: No Symptoms Hematology/Lymphatic: reports: No Symptoms Psychiatric: reports: No Symptoms Vital Signs: Vital Signs Temperature 97.6 F 05/25/19 14:30 Pulse Rate 84 05/25/19 14:30 Respiratory Rate 20 05/25/19 14:30 Blood Pressure 156/111 H 05/25/19 14:30 O2 Sat by Pulse Oximetry (%) 96 05/25/19 14:49 Constitutional: Yes: Well Nourished, No Distress, Calm Eyes: Yes: WNL, Conjunctiva Clear, EOM Intact HENT: Yes: WNL, Atraumatic, Normocephalic Neck: Yes: WNL, Supple, Trachea Midline Respiratory: Yes: WNL, Regular, CTA Bilaterally Gastrointestinal: Yes: WNL, Normal Bowel Sounds Renal/: Yes: WNL Cardiovascular: Yes: WNL, Regular Rate and Rhythm Musculoskeletal: Yes: WNL Extremities: Yes: WNL Integumentary: Yes: WNL Neurological: Yes: WNL, Alert, Oriented ...Motor Strength: WNL Psychiatric: Yes: WNL, Alert, Oriented - Other Data Labs, Other Data: CBC, BMP 05/25/19 10:10 05/25/19 10:10 INR, PTT INR 1.11 (0.83-1.09) H 05/25/19 10:10 Troponin, BNP 05/25/19 05/25/19 10:10 10:10 Troponin I 0.92 H* B-Natriuretic Peptide 3247.6 H Troponin, BNP 05/25/19 05/25/19 10:10 10:10 Troponin I 0.92 H* B-Natriuretic Peptide 3247.6 H Laboratory Tests 05/25/19 05/25/1919 10:10 10:10 10:10 WBC 4.2 RBC 3.78 L Hgb 10.1 L Hct 32.5 L D MCV 86.1 MCH 26.8 MCHC 31.2 L RDW 16.0 H Plt Count 174 D MPV 8.1 Absolute Neuts (auto) 2.0 Neutrophils % 48.3 Lymphocytes % 38.2 D Monocytes % 8.7 Eosinophils % 3.7 D Basophils % 1.1 Nucleated RBC % 0 PT with INR INR PTT (Actin FS) Anticoagulation Therapy Puncture Site ABG pH ABG pCO2 at Pt Temp ABG pO2 at Pt Temp ABG HCO3 ABG O2 Sat (Measured) ABG O2 Content ABG Base Excess Jasvir Test VBG pH 7.32 POC VBG pCO2 33.4 L POC VBG pO2 66.6 H VBG HCO3 16.6 L VBG O2 Sat (Kristi) 89.9 H VBG Base Excess -8.2 L Carboxyhemoglobin Methemoglobin O2 Delivery Device Oxygen Flow Rate Vent Mode Vent Rate Mechanical Rate Pressure Support Vent Sodium 143 Potassium 3.5 Chloride 113 H Carbon Dioxide 19 L Anion Gap 11 BUN 24.4 H Creatinine 1.6 H Est GFR (CKD-EPI)AfAm 53.85 Est GFR (CKD-EPI)NonAf 46.46 Random Glucose 171 H Calcium 8.6 Total Bilirubin 0.6 AST 98 H ALT 69 H Alkaline Phosphatase 106 Creatine Kinase 108 Troponin I 0.92 H* B-Natriuretic Peptide Total Protein 7.3 Albumin 3.4 Urine Color Urine Appearance Urine pH Ur Specific [place] Urine Protein Urine Glucose (UA) Urine Ketones Urine Blood Urine Nitrite Urine Bilirubin Urine Urobilinogen Ur Leukocyte Esterase Urine WBC (Auto) Urine RBC (Auto) Urine Casts (Auto) U Epithel Cells (Auto) Urine Bacteria (Auto) 05/25/19 05/25/19 05/25/19 10:10 10:10 10:15 WBC RBC Hgb Hct MCV MCH MCHC RDW Plt Count MPV Absolute Neuts (auto) Neutrophils % Lymphocytes % Monocytes % Eosinophils % Basophils % Nucleated RBC % PT with INR 13.10 H INR 1.11 H PTT (Actin FS) 24.7 L Anticoagulation Therapy No Result Required. Puncture Site Left radial ABG pH 7.37 ABG pCO2 at Pt Temp 31.9 L ABG pO2 at Pt Temp 250 H ABG HCO3 18.2 L ABG O2 Sat (Measured) 99.7 H ABG O2 Content 13.4 ABG Base Excess -5.8 L Jasvir Test Positive VBG pH POC VBG pCO2 POC VBG pO2 VBG HCO3 VBG O2 Sat (Kristi) VBG Base Excess Carboxyhemoglobin 3.2 H Methemoglobin < 1.0 O2 Delivery Device Bipap Oxygen Flow Rate 60 Vent Mode No Result Required. Vent Rate 10 Mechanical Rate No Result Required. Pressure Support Vent 16/6 Sodium Potassium Chloride Carbon Dioxide Anion Gap BUN Creatinine Est GFR (CKD-EPI)AfAm Est GFR (CKD-EPI)NonAf Random Glucose Calcium Total Bilirubin AST ALT Alkaline Phosphatase Creatine Kinase Troponin I B-Natriuretic Peptide 3247.6 H Total Protein Albumin Urine Color Urine Appearance Urine pH Ur Specific [place] Urine Protein Urine Glucose (UA) Urine Ketones Urine Blood Urine Nitrite Urine Bilirubin Urine Urobilinogen Ur Leukocyte Esterase Urine WBC (Auto) Urine RBC (Auto) Urine Casts (Auto) U Epithel Cells (Auto) Urine Bacteria (Auto) 05/25/19 11:12 WBC RBC Hgb Hct MCV MCH MCHC RDW Plt Count MPV Absolute Neuts (auto) Neutrophils % Lymphocytes % Monocytes % Eosinophils % Basophils % Nucleated RBC % PT with INR INR PTT (Actin FS) Anticoagulation Therapy Puncture Site ABG pH ABG pCO2 at Pt Temp ABG pO2 at Pt Temp ABG HCO3 ABG O2 Sat (Measured) ABG O2 Content ABG Base Excess Jasvir Test VBG pH POC VBG pCO2 POC VBG pO2 VBG HCO3 VBG O2 Sat (Kristi) VBG Base Excess Carboxyhemoglobin Methemoglobin O2 Delivery Device Oxygen Flow Rate Vent Mode Vent Rate Mechanical Rate Pressure Support Vent Sodium Potassium Chloride Carbon Dioxide Anion Gap BUN Creatinine Est GFR (CKD-EPI)AfAm Est GFR (CKD-EPI)NonAf Random Glucose Calcium Total Bilirubin AST ALT Alkaline Phosphatase Creatine Kinase Troponin I B-Natriuretic Peptide Total Protein Albumin Urine Color Yellow Urine Appearance Clear Urine pH 6.5 Ur Specific [place] 1.011 Urine Protein 2+ H Urine Glucose (UA) Trace Urine Ketones Negative Urine Blood 2+ H Urine Nitrite Negative Urine Bilirubin Negative Urine Urobilinogen 0.2 Ur Leukocyte Esterase Negative Urine WBC (Auto) 0-5 Urine RBC (Auto) 5-10 Urine Casts (Auto) 0-8 U Epithel Cells (Auto) 0-5 Urine Bacteria (Auto) Positive Imaging - Results Chest X-ray: Image Reviewed (chf) EKG: Image Reviewed (sr LVH rep abn) Problem List - Problems (1) Acute on chronic diastolic CHF (congestive heart failure) Code(s): I50.33 - ACUTE ON CHRONIC DIASTOLIC (CONGESTIVE) HEART FAILURE (2) Respiratory failure Code(s): J96.90 - RESPIRATORY FAILURE, UNSP, UNSP W HYPOXIA OR HYPERCAPNIA Qualifiers: Chronicity: acute Respiratory failure complication: hypoxia Qualified Code(s): J96.01 - Acute respiratory failure with hypoxia (3) Troponin I above reference range Code(s): R74.8 - ABNORMAL LEVELS OF OTHER SERUM ENZYMES (4) Abdominal pain Code(s): R10.9 - UNSPECIFIED ABDOMINAL PAIN (5) Acute CHF (congestive heart failure) Code(s): I50.9 - HEART FAILURE, UNSPECIFIED (6) Acute coronary syndrome Code(s): I24.9 - ACUTE ISCHEMIC HEART DISEASE, UNSPECIFIED (7) Acute metabolic encephalopathy Code(s): G93.41 - METABOLIC ENCEPHALOPATHY (8) Acute on chronic renal failure Code(s): N17.9 - ACUTE KIDNEY FAILURE, UNSPECIFIED; N18.9 - CHRONIC KIDNEY DISEASE, UNSPECIFIED (9) Acute on chronic systolic and diastolic heart failure, NYHA class 1 Code(s): I50.43 - ACUTE ON CHRONIC COMBINED SYSTOLIC AND DIASTOLIC HRT FAIL (10) Acute pulmonary edema Code(s): J81.0 - ACUTE PULMONARY EDEMA (11) Acute respiratory failure with hypoxia and hypercapnia Code(s): J96.01 - ACUTE RESPIRATORY FAILURE WITH HYPOXIA; J96.02 - ACUTE RESPIRATORY FAILURE WITH HYPERCAPNIA (12) Ewicr-qt-sosjhhy renal failure Code(s): N17.9 - ACUTE KIDNEY FAILURE, UNSPECIFIED; N18.9 - CHRONIC KIDNEY DISEASE, UNSPECIFIED (13) Anxiety and depression Code(s): F41.9 - ANXIETY DISORDER, UNSPECIFIED; F32.9 - MAJOR DEPRESSIVE DISORDER, SINGLE EPISODE, UNSPECIFIED (14) Ascending aortic aneurysm Code(s): I71.2 - THORACIC AORTIC ANEURYSM, WITHOUT RUPTURE (15) CAD (coronary artery disease) Code(s): I25.10 - ATHSCL HEART DISEASE OF [place] CORONARY ARTERY W/O ANG PCTRS Qualifiers: Coronary Disease-Associated Artery/Lesion type: [place] artery (16) CHF (congestive heart failure) Code(s): I50.9 - HEART FAILURE, UNSPECIFIED (17) CHF exacerbation Code(s): I50.9 - HEART FAILURE, UNSPECIFIED Qualifiers: Heart failure type: systolic Qualified Code(s): I50.23 - Acute on chronic systolic (congestive) heart failure (18) CKD (chronic kidney disease) Code(s): N18.9 - CHRONIC KIDNEY DISEASE, UNSPECIFIED Qualifiers: Chronic kidney disease stage: unspecified stage Qualified Code(s): N18.9 - Chronic kidney disease, unspecified (19) Chronic hypertension Code(s): I10 - ESSENTIAL (PRIMARY) HYPERTENSION (20) Chronic renal insufficiency Code(s): N18.9 - CHRONIC KIDNEY DISEASE, UNSPECIFIED Qualifiers: Chronic kidney disease stage: stage 2 (mild) Qualified Code(s): N18.2 - Chronic kidney disease, stage 2 (mild) (21) DVT prophylaxis Code(s): [id number] - (22) Elevated liver enzymes Code(s): R74.8 - ABNORMAL LEVELS OF OTHER SERUM ENZYMES (23) Elevated troponin Code(s): R74.8 - ABNORMAL LEVELS OF OTHER SERUM ENZYMES (24) HOCM (hypertrophic obstructive cardiomyopathy) Code(s): I42.1 - OBSTRUCTIVE HYPERTROPHIC CARDIOMYOPATHY (25) Hypertensive emergency Code(s): I10 - ESSENTIAL (PRIMARY) HYPERTENSION (26) Hypertensive emergency Code(s): I16.1 - HYPERTENSIVE EMERGENCY (27) Hypertensive heart disease Code(s): I11.9 - HYPERTENSIVE HEART DISEASE WITHOUT HEART FAILURE Qualifiers: Heart failure presence: with heart failure Heart failure chronicity: acute on chronic (28) Hypertensive urgency Code(s): I10 - ESSENTIAL (PRIMARY) HYPERTENSION (29) Lactic acidosis Code(s): E87.2 - ACIDOSIS (30) NSTEMI (non-ST elevated myocardial infarction) Code(s): I21.4 - NON-ST ELEVATION (NSTEMI) MYOCARDIAL INFARCTION (31) NSVT (nonsustained ventricular tachycardia) Code(s): I47.2 - VENTRICULAR TACHYCARDIA (32) Nephrolithiasis Code(s): N20.0 - CALCULUS OF KIDNEY (33) Paroxysmal A-fib Code(s): I48.0 - PAROXYSMAL ATRIAL FIBRILLATION (34) Prophylactic measure Code(s): Z29.9 - ENCOUNTER FOR PROPHYLACTIC MEASURES, UNSPECIFIED (35) Renal insufficiency Code(s): N28.9 - DISORDER OF KIDNEY AND URETER, UNSPECIFIED (36) Severe sepsis Code(s): A41.9 - SEPSIS, UNSPECIFIED ORGANISM; R65.20 - SEVERE SEPSIS WITHOUT SEPTIC SHOCK (37) Tobacco abuse Code(s): Z72.0 - TOBACCO USE Assessment/Plan Poor informant , noncomplient, CHF low normal EF (frequent exacerbations, intubated in the past), ? CAD (s/p stent x1, on Plavix), c.cath reports not available, arrhythmia? (with loop recorder) / AF , HTN, HLD, and anemia, who is presenting with severe SOB and chest pressure since this morning. Positive TNIs 0.09, nonsustained VT on telemetry. Plan increase IV lasix to BID, d/c iv ntg (patient c/o [facility]) , change nifedipine to norvasc, cont Carvedilol, low dose STELLA monitor bun/cr, repeat ECHO, BP control, telemetry, obtain records of prior c. cath, check Mg
[2019-05-25] MEDS: amLODIPine BESYLATE 10 MG TABLET (FP) PO SCH (17:24)
[2019-05-25] MEDS: FERROUS SO4 325 MG TABLET (FP) PO SCH (17:24)
[2019-05-25] MEDS ORDERED: NITROGLYCERIN SUBLINGUAL 1/150 0.4 MG TAB ONE (18:23)
[2019-05-25] MEDS: NICOTINE 21 MG/24 HOURS TOPICAL PATCH TD SCH (19:03)
[2019-05-25] MEDS ORDERED: CARVEDILOL 25 MG TABLET (FP) PO SCH (22:00)
[2019-05-25] MEDS: QUINAPRIL HCL 5 MG TABLET (FP) PO SCH (22:18)
[2019-05-25] MEDS: HEPARIN NA (PORCINE) 5,000 UNITS/ML 1ML VIAL SQ SCH (22:18)
[2019-05-25] MEDS: ZOLPIDEM TARTRATE 5 MG TABLET PO PRN (22:45)
[2019-05-26] MEDS: FUROSEMIDE 40 MG/4 ML INJECTABLE VIAL IVPUSH SCH ×2 (06:08→15:40)
[2019-05-26] MEDS ORDERED: FUROSEMIDE 40 MG/4 ML INJECTABLE VIAL IVPUSH SCH (10:00)
[2019-05-26] MEDS ORDERED: NIFEdipine E.R. 90 MG TABLET (FP) PO SCH (10:00)
[2019-05-26] MEDS: FOLIC ACID 1 MG TABLET (FP) PO SCH (11:03)
[2019-05-26] MEDS: CARVEDILOL 25 MG TABLET (FP) PO SCH ×2 (11:03→23:04)
[2019-05-26] MEDS: DULoxetine HCL 30 MG CAPSULE.DR PO SCH (11:03)
[2019-05-26] MEDS: FERROUS SO4 325 MG TABLET (FP) PO SCH ×3 (11:03→18:14)
[2019-05-26] MEDS: amLODIPine BESYLATE 10 MG TABLET (FP) PO SCH (11:03)
[2019-05-26] MEDS: ASPIRIN COATED 81 MG TABLET.EC PO SCH (11:03)
[2019-05-26] MEDS: POTASSIUM CHLORIDE TABS 10 MEQ TABLET.ER (FP) PO SCH (11:03)
[2019-05-26] MEDS: QUINAPRIL HCL 5 MG TABLET (FP) PO SCH (11:04)
[2019-05-26] MEDS: HEPARIN NA (PORCINE) 5,000 UNITS/ML 1ML VIAL SQ SCH ×2 (11:04→23:05)
[2019-05-26] MEDS: NICOTINE 21 MG/24 HOURS TOPICAL PATCH TD SCH (11:04)
--- NOTE | 2019-05-26 14:34 | PN ---
Progress Note, Physician Chief Complaint: pt has been up during night bc of the diuresis, now feels no chest pressure, no palpiations, no sob, - Current Medication List Current Medications: Active Medications Acetaminophen (Tylenol -) 650 mg PO Q6H PRN PRN Reason: PAIN LEVEL 7 - 10 Last Admin: 05/25/19 16:03 Dose: 650 mg Amlodipine Besylate (Norvasc -) 10 mg PO DAILY [facility] Last Admin: 05/26/19 11:03 Dose: 10 mg Aspirin (Ecotrin -) 81 mg PO DAILY [facility] Last Admin: 05/26/19 11:03 Dose: 81 mg Carvedilol (Coreg -) 25 mg PO BID [facility] Last Admin: 05/26/19 11:03 Dose: 25 mg Duloxetine HCl (Cymbalta -) 60 mg PO DAILY [facility] Last Admin: 05/26/19 11:03 Dose: 60 mg Ferrous Sulfate (Feosol -) 325 mg PO TIDCM [facility] Last Admin: 05/26/19 11:03 Dose: 325 mg Folic Acid (Folic Acid -) 1 mg PO DAILY [facility] Last Admin: 05/26/19 11:03 Dose: 1 mg Furosemide (Lasix Injection -) 40 mg IVPUSH BID@0600,1400 [facility] Last Admin: 05/26/19 06:08 Dose: 40 mg Heparin Sodium (Porcine) (Heparin -) 5,000 unit SQ BID [facility] Last Admin: 05/26/19 11:04 Dose: 5,000 unit Mirtazapine (Remeron -) 15 mg PO HS [facility] Nicotine (Nicoderm Patch -) 21 mg TD DAILY [facility] Last Admin: 05/26/19 11:04 Dose: 21 mg Potassium Chloride (K-Dur -) 20 meq PO DAILY [facility] Last Admin: 05/26/19 11:03 Dose: 20 meq Quinapril HCl (Accupril -) 5 mg PO DAILY [facility] Last Admin: 05/26/19 11:04 Dose: 5 mg Zolpidem Tartrate (Ambien -) 10 mg PO HS PRN PRN Reason: INSOMNIA Last Admin: 05/25/19 22:45 Dose: 10 mg - Objective Vital Signs: Vital Signs Temperature 98.4 F 05/26/19 05:57 Pulse Rate 82 05/26/19 11:57 Respiratory Rate 20 05/26/19 05:57 Blood Pressure 154/78 05/26/19 05:57 O2 Sat by Pulse Oximetry (%) 98 05/26/19 11:57 Constitutional: Yes: Well Nourished, Calm Eyes: Yes: EOM Intact HENT: Yes: Normocephalic Neck: Yes: Supple, Trachea Midline Cardiovascular: Yes: Regular Rate and Rhythm Respiratory: Yes: Regular, CTA Bilaterally Gastrointestinal: Yes: Normal Bowel Sounds Edema: No Neurological: Yes: WNL, Alert ...Motor Strength: WNL Labs: CBC, BMP 05/25/19 10:10 05/25/19 10:10 INR, PTT INR 1.11 (0.83-1.09) H 05/25/19 10:10 Impression/Plan Impression/Plan: ASSESSMENT/PLAN: Problem List - Problem Hypertensive emergency Assessment/Plan: per cardiology, increased IV lasix to BID discontinue ngt drip change nifedipine to norvasc Carvedilol bid low dose STELLA started, monitor renal function, repeat ECHO pt has poor compliance, as an outpt, Code(s): I16.1 - HYPERTENSIVE EMERGENCY Acute on chronic diastolic CHF (congestive heart failure) Assessment/Plan: NTG discontinued and currently tolerating nasal cannula s/p lasix monitor intake and output daily weights maintain oxygen saturations above 90% Code(s): I50.33 - ACUTE ON CHRONIC DIASTOLIC (CONGESTIVE) HEART FAILURE Troponin I above reference range Assessment/Plan: ekg no acute changes, and also troponin down trend, Code(s): R74.8 - ABNORMAL LEVELS OF OTHER SERUM ENZYMES Acute on chronic renal failure Assessment/Plan: monitor daily stable, ordered labs, will fu, Code(s): N17.9 - ACUTE KIDNEY FAILURE, UNSPECIFIED; N18.9 - CHRONIC KIDNEY DISEASE, UNSPECIFIED Visit type - Emergency Visit Emergency Visit: No - New Patient This patient is new to me today: Yes Date on this admission: 05/26/19 - Critical Care Critical Care patient: No - Discharge Referral Referred to [facility] No
--- NOTE | 2019-05-26 14:56 | PN ---
Progress Note, Physician Chief Complaint: Events noted Coverage for Dr. Hodges and Dr. Mills Not in distress History of Present Illness: Patient was seen and examined. Awake and alert. Chart was reviewed Denies chest pain, SOB or palpitations - Current Medication List Current Medications: Active Medications Acetaminophen (Tylenol -) 650 mg PO Q6H PRN PRN Reason: PAIN LEVEL 7 - 10 Last Admin: 05/25/19 16:03 Dose: 650 mg Amlodipine Besylate (Norvasc -) 10 mg PO DAILY [facility] Last Admin: 05/26/19 11:03 Dose: 10 mg Aspirin (Ecotrin -) 81 mg PO DAILY [facility] Last Admin: 05/26/19 11:03 Dose: 81 mg Carvedilol (Coreg -) 25 mg PO BID [facility] Last Admin: 05/26/19 11:03 Dose: 25 mg Duloxetine HCl (Cymbalta -) 60 mg PO DAILY [facility] Last Admin: 05/26/19 11:03 Dose: 60 mg Ferrous Sulfate (Feosol -) 325 mg PO TIDCM [facility] Last Admin: 05/26/19 11:03 Dose: 325 mg Folic Acid (Folic Acid -) 1 mg PO DAILY [facility] Last Admin: 05/26/19 11:03 Dose: 1 mg Furosemide (Lasix Injection -) 40 mg IVPUSH BID@0600,1400 [facility] Last Admin: 05/26/19 06:08 Dose: 40 mg Heparin Sodium (Porcine) (Heparin -) 5,000 unit SQ BID [facility] Last Admin: 05/26/19 11:04 Dose: 5,000 unit Mirtazapine (Remeron -) 15 mg PO HS [facility] Nicotine (Nicoderm Patch -) 21 mg TD DAILY [facility] Last Admin: 05/26/19 11:04 Dose: 21 mg Potassium Chloride (K-Dur -) 20 meq PO DAILY [facility] Last Admin: 05/26/19 11:03 Dose: 20 meq Quinapril HCl (Accupril -) 5 mg PO DAILY [facility] Last Admin: 05/26/19 11:04 Dose: 5 mg Zolpidem Tartrate (Ambien -) 10 mg PO HS PRN PRN Reason: INSOMNIA Last Admin: 05/25/19 22:45 Dose: 10 mg - Objective Vital Signs: Vital Signs Temperature 98.4 F 05/26/19 05:57 Pulse Rate 82 05/26/19 11:57 Respiratory Rate 20 05/26/19 05:57 Blood Pressure 154/78 05/26/19 05:57 O2 Sat by Pulse Oximetry (%) 98 05/26/19 11:57 Eyes: Yes: PERRL HENT: Yes: Atraumatic Neck: Yes: Supple Cardiovascular: Yes: Regular Rate and Rhythm, S1, S2 Respiratory: Yes: CTA Bilaterally Gastrointestinal: Yes: Normal Bowel Sounds, Soft. No: Tenderness Edema: No Additional Findings/Remarks: - Review of Systems Constitutional: denies: Chills, Fever Cardiovascular: denies: Chest Pain, denies: Palpitations, Shortness of Breath Respiratory: denies: Cough, Hemoptysis, Orthopnea, PND, SOB, SOB on Exertion Gastrointestinal: denies Abdominal Pain, denies: Diarrhea. denies: Melena, Nausea, Rectal Bleeding, Vomiting Genitourinary: denies: Dysuria, Hematuria Musculoskeletal: denies: Back Pain, Joint Pain Neurological: denies: Dizziness, Headache, Seizure, Syncope Labs: CBC, BMP 05/25/19 10:10 05/25/19 10:10 INR, PTT INR 1.11 (0.83-1.09) H 05/25/19 10:10 Problem List - Problems (1) Acute on chronic diastolic CHF (congestive heart failure) Code(s): I50.33 - ACUTE ON CHRONIC DIASTOLIC (CONGESTIVE) HEART FAILURE (2) Troponin I above reference range Code(s): R74.8 - ABNORMAL LEVELS OF OTHER SERUM ENZYMES (3) Acute on chronic renal failure Code(s): N17.9 - ACUTE KIDNEY FAILURE, UNSPECIFIED; N18.9 - CHRONIC KIDNEY DISEASE, UNSPECIFIED (4) Acute on chronic systolic and diastolic heart failure, NYHA class 1 Code(s): I50.43 - ACUTE ON CHRONIC COMBINED SYSTOLIC AND DIASTOLIC HRT FAIL (5) Acute respiratory failure with hypoxia and hypercapnia Code(s): J96.01 - ACUTE RESPIRATORY FAILURE WITH HYPOXIA; J96.02 - ACUTE RESPIRATORY FAILURE WITH HYPERCAPNIA (6) CAD (coronary artery disease) Code(s): I25.10 - ATHSCL HEART DISEASE OF [place] CORONARY ARTERY W/O ANG PCTRS Qualifiers: Coronary Disease-Associated Artery/Lesion type: [place] artery (7) Hypertensive heart disease Code(s): I11.9 - HYPERTENSIVE HEART DISEASE WITHOUT HEART FAILURE Qualifiers: Heart failure presence: with heart failure Heart failure chronicity: acute on chronic Assessment/Plan 1. Acute on chronic LV systolic failure low nomal LVEF (HFpEF) 2. CAD, angina pectoris, patient states no stents 3. Post ILR 4. ? History of PAF currently not on anticoagulation 5. HTN 6. Hypercholesterolemia 7. Anemia 8. CKD 9. Elevated troponin - demand ischemia PLAN: 1. Continue Carvedilol 25 mg BID, Quinapril 5 mg QD and Amlodipine 10 mg QD 2. ASA 81 mg QD 3. Telemetry monitoring. Obtain prior records and if there is evidence of AF, then will need to initiate anticoagulation 4. Echocardiography to be repeated to assess LV/RV and valvular function 5. Trend troponin 6. Monitor renal function and electrolytes 7. ILR needs to be interrogated (heel wheeler to be identified) 8. Diuretics and monitor renal function and electrolytes Patient has been followed by [facility] Dr. Hodges to resume care on Tuesday Estevan Zayas MD
[2019-05-26 16:54] LABS: BASO % 0.7 % (0-2.0); EOS % 1.3 % (0-4.5); HEMATOCRIT 34.6 % (35.4-49); HEMOGLOBIN 10.9 GM/dL (11.7-16.9); LYMPH % 14.4 % (8-40); MCH 26.7 pg (25.7-33.7); MCHC 31.6 g/dl (32.0-35.9); MEAN CELL VOLUME 84.7 fl (80-96); MEAN PLT VOLUME 8.2 fl (7.5-11.1); MONO % 8.5 % (3.8-10.2); NEUT % 75.1 % (42.8-82.8); PLATELET COUNT 176 K/MM3 (134-434); RBC 4.09 M/mm3 (4.00-5.60); RDW 15.8 % (11.9-15.9); WHITE BLOOD COUNT 7.8 K/mm3 (4.0-10.0)
[2019-05-26 17:23] LABS: ALBUMIN 3.9 g/dl (3.4-5.0); BILIRUBIN,TOTAL 0.9 mg/dL (0.2-1); BLOOD UREA NITROGEN 19.5 mg/dL (7-18); CALCIUM 9.1 mg/dL (8.5-10.1); CREATININE 1.6 mg/dL (0.55-1.3); POTASSIUM 3.5 mmol/L (3.5-5.1); TOT PROT 8.1 g/dl (6.4-8.2)
[2019-05-26] MEDS ORDERED: POTASSIUM CHLORIDE TABS 20 MEQ TABLET.ER (FP) PO ONE (22:47)
[2019-05-26] MEDS: MIRTAZAPINE 15 MG TABLET (FP) PO SCH (23:04)
[2019-05-26] MEDS: ZOLPIDEM TARTRATE 5 MG TABLET PO PRN (23:04)
--- NOTE | 2019-05-26 23:09 | EKG ---
Test Reason : Blood Pressure : / mmHG Vent. Rate : 077 BPM Atrial Rate : 077 BPM P-R Int : 174 ms QRS Dur : 096 ms QT Int : 432 ms P-R-T Axes : 054 021 157 degrees QTc Int : 488 ms NORMAL SINUS RHYTHM POSSIBLE LEFT ATRIAL ENLARGEMENT LEFT VENTRICULAR HYPERTROPHY WITH REPOLARIZATION ABNORMALITY PROLONGED QT ABNORMAL ECG WHEN COMPARED WITH ECG OF 25-MAY-2019 11:18, PREMATURE ATRIAL COMPLEXES ARE NO LONGER PRESENT Confirmed by MUNIRA DUARTE, GEORGE ([id number]) on 05/26/2019 11:09:03 PM Referred By: Michela SAMUELS Confirmed By:GEORGE LOMBARDO MD
--- NOTE | 2019-05-26 23:23 | EKG ---
Test Reason : Blood Pressure : / mmHG Vent. Rate : 084 BPM Atrial Rate : 084 BPM P-R Int : 172 ms QRS Dur : 092 ms QT Int : 434 ms P-R-T Axes : 030 025 156 degrees QTc Int : 512 ms SINUS RHYTHM WITH PREMATURE ATRIAL COMPLEXES AND PREMATURE VENTRICULAR COMPLEXES OR FUSION COMPLEXES LEFT VENTRICULAR HYPERTROPHY WITH REPOLARIZATION ABNORMALITY PROLONGED QT ABNORMAL ECG WHEN COMPARED WITH ECG OF 25-MAY-2019 10:03, FUSION COMPLEXES ARE NOW PRESENT T WAVE VARIATION Confirmed by GEORGE LOMBARDO MD ([id number]) on 05/26/2019 11:23:02 PM Referred By: Confirmed By:GEORGE LOMBARDO MD
[2019-05-27] MEDS: FUROSEMIDE 40 MG/4 ML INJECTABLE VIAL IVPUSH SCH ×2 (06:06→13:22)
[2019-05-27 06:55] LABS: BASO % 0.4 % (0-2.0); EOS % 1.1 % (0-4.5); HEMATOCRIT 31.6 % (35.4-49); HEMOGLOBIN 10.2 GM/dL (11.7-16.9); LYMPH % 25.4 % (8-40); MCHC 32.2 g/dl (32.0-35.9); MEAN PLT VOLUME 8.5 fl (7.5-11.1); MONO % 12.1 % (3.8-10.2); PLATELET COUNT 170 K/MM3 (134-434); RBC 3.76 M/mm3 (4.00-5.60); RDW 15.9 % (11.9-15.9); WHITE BLOOD COUNT 5.2 K/mm3 (4.0-10.0)
[2019-05-27 07:21] LABS: ALBUMIN 3.3 g/dl (3.4-5.0); BILIRUBIN,TOTAL 0.8 mg/dL (0.2-1); BLOOD UREA NITROGEN 23.3 mg/dL (7-18); CALCIUM 8.9 mg/dL (8.5-10.1); CREATININE 1.6 mg/dL (0.55-1.3); POTASSIUM 3.5 mmol/L (3.5-5.1)
[2019-05-27] MEDS ORDERED: PT OWN MED DRAWER 7, Y5N ONE ×2 (08:03→09:19)
[2019-05-27] MEDS: FERROUS SO4 325 MG TABLET (FP) PO SCH ×3 (08:06→17:30)
--- NOTE | 2019-05-27 08:43 | PN ---
Progress Note, Physician Chief Complaint: Events noted Coverage for Dr. Hodges and Dr. Mills Not in distress History of Present Illness: Patient was seen and examined. Awake and alert. Chart was reviewed Denies chest pain, SOB or palpitations Tolerating therapy - Current Medication List Current Medications: Active Medications Acetaminophen (Tylenol -) 650 mg PO Q6H PRN PRN Reason: PAIN LEVEL 7 - 10 Last Admin: 05/25/19 16:03 Dose: 650 mg Amlodipine Besylate (Norvasc -) 10 mg PO DAILY [facility] Last Admin: 05/26/19 11:03 Dose: 10 mg Aspirin (Ecotrin -) 81 mg PO DAILY [facility] Last Admin: 05/26/19 11:03 Dose: 81 mg Carvedilol (Coreg -) 25 mg PO BID [facility] Last Admin: 05/26/19 23:04 Dose: 25 mg Duloxetine HCl (Cymbalta -) 60 mg PO DAILY [facility] Last Admin: 05/26/19 11:03 Dose: 60 mg Ferrous Sulfate (Feosol -) 325 mg PO TIDCM [facility] Last Admin: 05/27/19 08:06 Dose: 325 mg Folic Acid (Folic Acid -) 1 mg PO DAILY [facility] Last Admin: 05/26/19 11:03 Dose: 1 mg Furosemide (Lasix Injection -) 40 mg IVPUSH BID@0600,1400 [facility] Last Admin: 05/27/19 06:06 Dose: 40 mg Heparin Sodium (Porcine) (Heparin -) 5,000 unit SQ BID [facility] Last Admin: 05/26/19 23:05 Dose: 5,000 unit Mirtazapine (Remeron -) 15 mg PO HS [facility] Last Admin: 05/26/19 23:04 Dose: 15 mg Nicotine (Nicoderm Patch -) 21 mg TD DAILY [facility] Last Admin: 05/26/19 11:04 Dose: 21 mg Potassium Chloride (K-Dur -) 20 meq PO DAILY [facility] Last Admin: 05/26/19 11:03 Dose: 20 meq Quinapril HCl (Accupril -) 5 mg PO DAILY [facility] Last Admin: 05/26/19 11:04 Dose: 5 mg Zolpidem Tartrate (Ambien -) 10 mg PO HS PRN PRN Reason: INSOMNIA Last Admin: 05/26/19 23:04 Dose: 10 mg - Objective Vital Signs: Vital Signs Temperature 98.3 F 05/27/19 06:00 Pulse Rate 86 05/27/19 07:57 Respiratory Rate 18 05/27/19 06:00 Blood Pressure 134/98 05/27/19 06:00 O2 Sat by Pulse Oximetry (%) 98 05/27/19 07:57 Eyes: Yes: PERRL HENT: Yes: Atraumatic Neck: Yes: Supple Cardiovascular: Yes: Regular Rate and Rhythm, S1, S2 Respiratory: Yes: CTA Bilaterally Gastrointestinal: Yes: Normal Bowel Sounds, Soft. No: Tenderness Edema: No Additional Findings/Remarks: - Review of Systems Constitutional: denies: Chills, Fever Cardiovascular: denies: Chest Pain, denies: Palpitations, Shortness of Breath Respiratory: denies: Cough, Hemoptysis, Orthopnea, PND, SOB, SOB on Exertion Gastrointestinal: denies Abdominal Pain, denies: Diarrhea. denies: Melena, Nausea, Rectal Bleeding, Vomiting Genitourinary: denies: Dysuria, Hematuria Musculoskeletal: denies: Back Pain, Joint Pain Neurological: denies: Dizziness, Headache, Seizure, Syncope Labs: CBC, BMP 05/27/19 06:05 05/27/19 06:05 INR, PTT INR 1.11 (0.83-1.09) H 05/25/19 10:10 Problem List - Problems (1) Acute on chronic diastolic CHF (congestive heart failure) Code(s): I50.33 - ACUTE ON CHRONIC DIASTOLIC (CONGESTIVE) HEART FAILURE (2) Troponin I above reference range Code(s): R74.8 - ABNORMAL LEVELS OF OTHER SERUM ENZYMES (3) Acute on chronic renal failure Code(s): N17.9 - ACUTE KIDNEY FAILURE, UNSPECIFIED; N18.9 - CHRONIC KIDNEY DISEASE, UNSPECIFIED (4) Acute on chronic systolic and diastolic heart failure, NYHA class 1 Code(s): I50.43 - ACUTE ON CHRONIC COMBINED SYSTOLIC AND DIASTOLIC HRT FAIL (5) Acute respiratory failure with hypoxia and hypercapnia Code(s): J96.01 - ACUTE RESPIRATORY FAILURE WITH HYPOXIA; J96.02 - ACUTE RESPIRATORY FAILURE WITH HYPERCAPNIA (6) CAD (coronary artery disease) Code(s): I25.10 - ATHSCL HEART DISEASE OF [place] CORONARY ARTERY W/O ANG PCTRS Qualifiers: Coronary Disease-Associated Artery/Lesion type: [place] artery (7) Hypertensive heart disease Code(s): I11.9 - HYPERTENSIVE HEART DISEASE WITHOUT HEART FAILURE Qualifiers: Heart failure presence: with heart failure Heart failure chronicity: acute on chronic Assessment/Plan 1. Acute on chronic LV systolic failure low nomal LVEF (HFpEF) 2. CAD, angina pectoris, patient states no stents 3. Post ILR 4. ? History of PAF currently not on anticoagulation 5. HTN 6. Hypercholesterolemia 7. Anemia 8. CKD 9. Elevated troponin - demand ischemia PLAN: 1. Continue Carvedilol 25 mg BID, Quinapril 5 mg QD (may uptitrate if BP remains elevated granted renal function remains stable) and Amlodipine 10 mg QD 2. ASA 81 mg QD 3. Telemetry monitoring. Obtain prior records and if there is evidence of AF, then will need to initiate anticoagulation 4. Echocardiography to be repeated to assess LV/RV and valvular function 5. Trend troponin last 0.69 6. Monitor renal function and electrolytes 7. ILR needs to be interrogated (proof press operator to be identified) 8. Diuretics and monitor renal function and electrolytes Patient has been followed by [facility] [employer] affiliated with [facility] Dr. Hodges to resume care on Tuesday Estevan Zayas MD
[2019-05-27] MEDS: NICOTINE 21 MG/24 HOURS TOPICAL PATCH TD SCH (09:26)
[2019-05-27] MEDS: HEPARIN NA (PORCINE) 5,000 UNITS/ML 1ML VIAL SQ SCH ×2 (09:27→21:48)
[2019-05-27] MEDS: DULoxetine HCL 30 MG CAPSULE.DR PO SCH (09:27)
[2019-05-27] MEDS: POTASSIUM CHLORIDE TABS 10 MEQ TABLET.ER (FP) PO SCH (09:27)
[2019-05-27] MEDS: ASPIRIN COATED 81 MG TABLET.EC PO SCH (09:27)
[2019-05-27] MEDS: QUINAPRIL HCL 5 MG TABLET (FP) PO SCH (09:28)
[2019-05-27] MEDS: FOLIC ACID 1 MG TABLET (FP) PO SCH (09:28)
[2019-05-27] MEDS: amLODIPine BESYLATE 10 MG TABLET (FP) PO SCH (09:28)
[2019-05-27] MEDS: CARVEDILOL 25 MG TABLET (FP) PO SCH ×2 (09:28→21:47)
--- NOTE | 2019-05-27 12:40 | PN ---
Physical Exam: SUBJECTIVE: Patient seen and examined. He has no complaints. He denies CP, palpitations, SOB. He had asymptomatic NSVT on monitor. OBJECTIVE: Vital Signs Period Temp Pulse Resp BP Sys/Rosado Pulse Ox Last 24 Hr 97.7 F-98.3 F 62-88 18-23 114-141/74-99 97-100 GENERAL: The patient is awake, alert, and fully oriented, in no acute distress. LUNGS: Breath sounds equal, clear to auscultation bilaterally, no wheezes, no crackles, no accessory muscle use. HEART: Regular rate and rhythm, S1, S2 without murmur, rub or gallop. ABDOMEN: Soft, nontender, nondistended, normoactive bowel sounds, no guarding, no rebound, no hepatosplenomegaly, no masses. EXTREMITIES: 2+ pulses, warm, well-perfused, no edema. Laboratory Results - last 24 hr 05/26/19 05/26/19 05/27/19 16:30 16:30 06:05 WBC 7.8 5.2 RBC 4.09 3.76 L Hgb 10.9 L 10.2 L Hct 34.6 L 31.6 L MCV 84.7 84.0 MCH 26.7 27.0 MCHC 31.6 L 32.2 RDW 15.8 15.9 Plt Count 176 170 MPV 8.2 8.5 Absolute Neuts (auto) 5.9 3.2 Neutrophils % 75.1 D 61.0 Lymphocytes % 14.4 D 25.4 D Monocytes % 8.5 12.1 H Eosinophils % 1.3 1.1 Basophils % 0.7 0.4 Nucleated RBC % 0 0 Sodium 138 Potassium 3.5 Chloride 104 Carbon Dioxide 26 Anion Gap 9 BUN 19.5 H Creatinine 1.6 H Est GFR (CKD-EPI)AfAm 53.85 Est GFR (CKD-EPI)NonAf 46.46 Random Glucose 106 Calcium 9.1 Total Bilirubin 0.9 AST 26 ALT 54 Alkaline Phosphatase 105 Total Protein 8.1 Albumin 3.9 05/27/19 06:05 WBC RBC Hgb Hct MCV MCH MCHC RDW Plt Count MPV Absolute Neuts (auto) Neutrophils % Lymphocytes % Monocytes % Eosinophils % Basophils % Nucleated RBC % Sodium 138 Potassium 3.5 Chloride 104 Carbon Dioxide 26 Anion Gap 8 BUN 23.3 H Creatinine 1.6 H Est GFR (CKD-EPI)AfAm 53.85 Est GFR (CKD-EPI)NonAf 46.46 Random Glucose 91 Calcium 8.9 Total Bilirubin 0.8 AST 15 ALT 37 Alkaline Phosphatase 91 Total Protein 7.0 Albumin 3.3 L Active Medications Generic Name Dose Route Start Last Admin Trade Name Freq PRN Reason Stop Dose Admin Acetaminophen 650 mg 05/25/19 15:37 05/25/19 16:03 Tylenol - PO 650 mg Q6H PRN Administration PAIN LEVEL 7 - 10 Amlodipine Besylate 10 mg 05/25/19 17:15 05/27/19 09:28 Norvasc - PO 10 mg DAILY [facility] Administration Aspirin 81 mg 05/26/19 10:00 05/27/19 09:27 Ecotrin - PO 81 mg DAILY [facility] Administration Carvedilol 25 mg 05/26/19 10:00 05/27/19 09:28 Coreg - PO 25 mg BID [facility] Administration Duloxetine HCl 60 mg 05/26/19 10:00 05/27/19 09:27 Cymbalta - PO 60 mg DAILY [facility] Administration Ferrous Sulfate 325 mg 05/25/19 17:30 05/27/19 11:26 Feosol - PO 325 mg TIDCM [facility] Administration Folic Acid 1 mg 05/26/19 10:00 05/27/19 09:28 Folic Acid - PO 1 mg DAILY [facility] Administration Furosemide 40 mg 05/26/19 06:00 05/27/19 06:06 Lasix Injection - IVPUSH 40 mg BID@0600,1400 [facility] Administration Heparin Sodium (Porcine) 5,000 unit 05/25/19 22:00 05/27/19 09:27 Heparin - SQ 5,000 unit BID [facility] Administration Mirtazapine 15 mg 05/26/19 22:00 05/26/19 23:04 Remeron - PO 15 mg HS [facility] Administration Nicotine 21 mg 05/25/19 18:30 05/27/19 09:26 Nicoderm Patch - TD 21 mg DAILY [facility] Administration Potassium Chloride 20 meq 05/26/19 10:00 05/27/19 09:27 K-Dur - PO 20 meq DAILY [facility] Administration Quinapril HCl 5 mg 05/25/19 17:15 05/27/19 09:28 Accupril - PO 5 mg DAILY [facility] Administration Zolpidem Tartrate 10 mg 05/25/19 22:00 05/26/19 23:04 Ambien - PO 10 mg HS PRN Administration INSOMNIA ASSESSMENT/PLAN: This is a 58 year old man with a history of HTN, hyperlipidemia, non- obstructive CAD, ? PAF, chronic diastolic heart failure, anemia, stage 3 CKD, FABRICIO who presented to the ED with SOB. 1. Hypertensive emergency with acute diastolic heart failure - BP better controlled - Weight decreased 4.8 kg in 2 days - Echo ordered - Change Lasix to PO 2. NSVT - Check potassium, magnesium - Continue telemetry monitoring 3. HTN, uncontrolled - Continue Accupril, Norvasc, Coreg, Lasix 4. Chronic diastolic heart failure - Continue Lasix 5. Demand ischemia 6. Non-obstructive CAD - Continue aspirin, Coreg 7. Hyperlipidemia 8. Possible history of PAF 9. Stage 3 CKD - Creatinine stable 10. FABRICIO 11. Anemia - Hemoglobin stable Visit type - Emergency Visit Emergency Visit: Yes ED Registration Date: 05/25/19 Care time: The patient presented to the Emergency Department on the above date and was hospitalized for further evaluation of their emergent condition. - New Patient This patient is new to me today: Yes Date on this admission: 05/27/19 - Critical Care Critical Care patient: No - Discharge Referral Referred to [facility] Med P.C.: No
[2019-05-27 16:14] LABS: CALCIUM 8.5 mg/dL (8.5-10.1); CREATININE 1.9 mg/dL (0.55-1.3); MAGNESIUM 1.9 mg/dL (1.8-2.4); POTASSIUM 3.6 mmol/L (3.5-5.1)
[2019-05-27] MEDS ORDERED: MAGNESIUM OXIDE 400 MG TABLET (FP) PO ONE (17:57)
[2019-05-27] MEDS ORDERED: POTASSIUM CHLORIDE TABS 20 MEQ TABLET.ER (FP) PO ONE (17:57)
[2019-05-27] MEDS: MIRTAZAPINE 15 MG TABLET (FP) PO SCH (21:47)
[2019-05-27] MEDS: ZOLPIDEM TARTRATE 5 MG TABLET PO PRN (22:42)
[2019-05-28] MEDS: FUROSEMIDE 40 MG/4 ML INJECTABLE VIAL IVPUSH SCH (05:38)
[2019-05-28 06:41] LABS: HEMATOCRIT 32.4 % (35.4-49); HEMOGLOBIN 10.3 GM/dL (11.7-16.9); MCH 26.8 pg (25.7-33.7); MEAN PLT VOLUME 8.1 fl (7.5-11.1); PLATELET COUNT 176 K/MM3 (134-434); RBC 3.85 M/mm3 (4.00-5.60); RDW 15.7 % (11.9-15.9); WHITE BLOOD COUNT 4.2 K/mm3 (4.0-10.0)
[2019-05-28 07:11] LABS: CALCIUM 8.7 mg/dL (8.5-10.1); CREATININE 1.7 mg/dL (0.55-1.3); POTASSIUM 3.8 mmol/L (3.5-5.1)
--- NOTE | 2019-05-28 07:54 | PN ---
Progress Note, Physician Chief Complaint: Examined in bed . w/o complaints. Awaiting TTE. History of Present Illness: Patient is a 58 year old male with a significant past medical history of diastolic CHF, aortic aneurysm (w/mild dilation), FABRICIO, HTN, nonobstructive CAD ( multiple caths done at other tertiary care centers), past hx lithotripsy for left nephrolithiasis, active smoker (6 cigarettes per day and marijuana) s/p loop recorder 2 months ago. He presents to [facility] ED for acute respiratory failure and chest pressure, non radiating. Patient reports three days of respiratory difficulty and was brought in via EMS. On arrival he was also noted to be hypertensive and tachycardic. His ABGs show acute respiratory hypercapneic failure. He was place on a Nitroglycerine drip for hypertensive emergency with improvement of his BP. Lasix 40mg pushes given. Patient most recently here on 01/2019 with same presentation and intubated in the field. He endorses medication non compliance because of side effects (gets dizzy and nauseaous). Pt denies any fevers/chills, headache, vision changes, cough or sputum change from baseline, syncope, palpitations, nausea/vomiting, abdominal pain, urinary symptoms, diarrhea/constipation, or leg swelling. - Current Medication List Current Medications: Active Medications Acetaminophen (Tylenol -) 650 mg PO Q6H PRN PRN Reason: PAIN LEVEL 7 - 10 Last Admin: 05/25/19 16:03 Dose: 650 mg Amlodipine Besylate (Norvasc -) 10 mg PO DAILY [facility] Last Admin: 05/27/19 09:28 Dose: 10 mg Aspirin (Ecotrin -) 81 mg PO DAILY [facility] Last Admin: 05/27/19 09:27 Dose: 81 mg Carvedilol (Coreg -) 25 mg PO BID [facility] Last Admin: 05/27/19 21:47 Dose: 25 mg Duloxetine HCl (Cymbalta -) 60 mg PO DAILY [facility] Last Admin: 05/27/19 09:27 Dose: 60 mg Ferrous Sulfate (Feosol -) 325 mg PO TIDCM [facility] Last Admin: 05/27/19 17:30 Dose: 325 mg Folic Acid (Folic Acid -) 1 mg PO DAILY [facility] Last Admin: 05/27/19 09:28 Dose: 1 mg Furosemide (Lasix Injection -) 40 mg IVPUSH BID@0600,1400 [facility] Last Admin: 05/28/19 05:38 Dose: 40 mg Heparin Sodium (Porcine) (Heparin -) 5,000 unit SQ BID [facility] Last Admin: 05/27/19 21:48 Dose: 5,000 unit Mirtazapine (Remeron -) 15 mg PO HS [facility] Last Admin: 05/27/19 21:47 Dose: 15 mg Nicotine (Nicoderm Patch -) 21 mg TD DAILY [facility] Last Admin: 05/27/19 09:26 Dose: 21 mg Potassium Chloride (K-Dur -) 20 meq PO DAILY [facility] Last Admin: 05/27/19 09:27 Dose: 20 meq Quinapril HCl (Accupril -) 5 mg PO DAILY [facility] Last Admin: 05/27/19 09:28 Dose: 5 mg Zolpidem Tartrate (Ambien -) 10 mg PO HS PRN PRN Reason: INSOMNIA Last Admin: 05/27/19 22:42 Dose: 10 mg - Objective Vital Signs: Vital Signs Temperature 98.1 F 05/28/19 05:00 Pulse Rate 54 L 05/28/19 05:00 Respiratory Rate 18 05/28/19 05:00 Blood Pressure 128/94 05/28/19 05:00 O2 Sat by Pulse Oximetry (%) 99 05/27/19 22:00 Constitutional: Yes: Well Nourished, No Distress, Calm Eyes: Yes: WNL, Conjunctiva Clear HENT: Yes: WNL, Atraumatic, Normocephalic Neck: Yes: WNL Cardiovascular: Yes: WNL, Regular Rate and Rhythm Respiratory: Yes: WNL, Regular, CTA Bilaterally Gastrointestinal: Yes: WNL, Normal Bowel Sounds ...Rectal Exam: Yes: Deferred Genitourinary: Yes: WNL Breast(s): Yes: WNL Musculoskeletal: Yes: WNL Extremities: Yes: WNL Edema: No Peripheral Pulses WNL: Yes Peripheral Pulses: Left Radial: 2+, Right Radial: 2+, Left Doralis Pedis: 2+, Right Dorsalis Pedis: 2+, Left Femoral: 2+, Right Femoral: 2+ Integumentary: Yes: WNL Neurological: Yes: WNL, Alert, Oriented ...Motor Strength: WNL Psychiatric: Yes: WNL Labs: CBC, BMP 05/28/19 05:55 05/28/19 05:55 INR, PTT INR 1.11 (0.83-1.09) H 05/25/19 10:10 - ....Imaging Chest X-ray: Image Reviewed (CXR: Increased hilar markings) Problem List - Problems (1) Non compliance w medication regimen Assessment/Plan: pt states he misses multiple doses of BP meds stressed importance of med compliance Code(s): Z91.14 - PATIENT'S OTHER NONCOMPLIANCE WITH MEDICATION REGIMEN (2) Acute on chronic diastolic CHF (congestive heart failure) Assessment/Plan: Edema, SOB improved c/w lasix BID, change to PO 40mg daily weights low sodium diet Code(s): I50.33 - ACUTE ON CHRONIC DIASTOLIC (CONGESTIVE) HEART FAILURE (3) Troponin I above reference range Assessment/Plan: Trop .92-->.69-->.51 aymptomatic, trending down, will send one more trop no ischemic changes on EKG TTE pending Code(s): R74.8 - ABNORMAL LEVELS OF OTHER SERUM ENZYMES (4) Acute respiratory failure with hypoxia and hypercapnia Assessment/Plan: hypoxia/hpyercarbia resolved not on supplemental O2 SPO2 98% Code(s): J96.01 - ACUTE RESPIRATORY FAILURE WITH HYPOXIA; J96.02 - ACUTE RESPIRATORY FAILURE WITH HYPERCAPNIA (5) [id number]-qx-bgnxggy renal failure Assessment/Plan: Baseline Cr around 1.6 IV lasix changed to oral continue to monitor Cr on lower does of lasix avoid additional nephrotoxic agents if Cr rises will consult renal Code(s): N17.9 - ACUTE KIDNEY FAILURE, UNSPECIFIED; N18.9 - CHRONIC KIDNEY DISEASE, UNSPECIFIED (6) Hypertensive urgency Assessment/Plan: BP 162/102 on admission better controlled on norvasc 10mg continue to monitor Code(s): I10 - ESSENTIAL (PRIMARY) HYPERTENSION (7) Paroxysmal A-fib Assessment/Plan: history of arrythmias episodes of NSVT on monitor, assymptomaticpt not aware of episodes implanted loop recorded in place cardiology following,ILR needs to be interrogated (needle straightener to be identified ) TTE pending c/w Carvedilol 25 mg BID, Quinapril 5 mg QD c/w asa Telemetry monitoring. Code(s): I48.0 - PAROXYSMAL ATRIAL FIBRILLATION (8) Tobacco abuse Assessment/Plan: nicotine patch counseled on smoking cessation Code(s): Z72.0 - TOBACCO USE (9) Prophylactic measure Assessment/Plan: FEN low sodium diet no additional IVF, on laisx monitor electrolytes and Cr DVT heparin sq Dispo maintain in tele full code discharge planning Code(s): Z29.9 - ENCOUNTER FOR PROPHYLACTIC MEASURES, UNSPECIFIED Visit type - Emergency Visit Emergency Visit: Yes ED Registration Date: 05/25/19 Care time: The patient presented to the Emergency Department on the above date and was hospitalized for further evaluation of their emergent condition. - New Patient This patient is new to me today: Yes Date on this admission: 05/28/19 - Critical Care Critical Care patient: No - Discharge Referral Referred to [facility] Med P.C.: No
[2019-05-28] MEDS: FERROUS SO4 325 MG TABLET (FP) PO SCH ×2 (09:01→11:59)
[2019-05-28] MEDS: amLODIPine BESYLATE 10 MG TABLET (FP) PO SCH (09:13)
[2019-05-28] MEDS: ASPIRIN COATED 81 MG TABLET.EC PO SCH (09:13)
[2019-05-28] MEDS: FOLIC ACID 1 MG TABLET (FP) PO SCH (09:13)
[2019-05-28] MEDS: POTASSIUM CHLORIDE TABS 10 MEQ TABLET.ER (FP) PO SCH (09:13)
[2019-05-28] MEDS: CARVEDILOL 25 MG TABLET (FP) PO SCH ×2 (09:13→21:21)
[2019-05-28] MEDS: DULoxetine HCL 30 MG CAPSULE.DR PO SCH (09:13)
[2019-05-28] MEDS: HEPARIN NA (PORCINE) 5,000 UNITS/ML 1ML VIAL SQ SCH ×2 (09:14→21:21)
[2019-05-28] MEDS: NICOTINE 21 MG/24 HOURS TOPICAL PATCH TD SCH (09:15)
[2019-05-28] MEDS ORDERED: PT OWN MED DRAWER 7, Y5N ONE (09:20)
[2019-05-28] MEDS: QUINAPRIL HCL 5 MG TABLET (FP) PO SCH (09:21)
--- NOTE | 2019-05-28 10:03 | PN ---
Progress Note, Physician History of Present Illness: Pt is a 58 yo M, with PMH of CHF (frequent exacerbations, intubated in the past) , CAD (s/p stent x1, on Plavix), arrhythmia? (with loop recorder), HTN, HLD, and anemia, who is presenting with severe SOB and chest pressure since this morning. Pt began having SOB this morning when he got up to use the bathroom, with mild chest pressure which is non-radiating, and not associated with nausea/ vomiting/diaphoresis. Pt states his diet "hasn't been right," but endorses medication compliance (including Lasix 40 Qday). Pt denies any fevers/chills, headache, vision changes, cough or sputum change from baseline, syncope, palpitations, nausea/vomiting, abdominal pain, urinary symptoms, diarrhea/ constipation, or leg swelling. - Current Medication List Current Medications: Active Medications Acetaminophen (Tylenol -) 650 mg PO Q6H PRN PRN Reason: PAIN LEVEL 7 - 10 Last Admin: 05/25/19 16:03 Dose: 650 mg Amlodipine Besylate (Norvasc -) 10 mg PO DAILY [facility] Last Admin: 05/28/19 09:13 Dose: 10 mg Aspirin (Ecotrin -) 81 mg PO DAILY [facility] Last Admin: 05/28/19 09:13 Dose: 81 mg Carvedilol (Coreg -) 25 mg PO BID [facility] Last Admin: 05/28/19 09:13 Dose: 25 mg Duloxetine HCl (Cymbalta -) 60 mg PO DAILY [facility] Last Admin: 05/28/19 09:13 Dose: 60 mg Ferrous Sulfate (Feosol -) 325 mg PO TIDCM [facility] Last Admin: 05/28/19 09:01 Dose: 325 mg Folic Acid (Folic Acid -) 1 mg PO DAILY [facility] Last Admin: 05/28/19 09:13 Dose: 1 mg Furosemide (Lasix Injection -) 40 mg IVPUSH BID@0600,1400 [facility] Last Admin: 05/28/19 05:38 Dose: 40 mg Heparin Sodium (Porcine) (Heparin -) 5,000 unit SQ BID [facility] Last Admin: 05/28/19 09:14 Dose: 5,000 unit Mirtazapine (Remeron -) 15 mg PO HS [facility] Last Admin: 05/27/19 21:47 Dose: 15 mg Nicotine (Nicoderm Patch -) 21 mg TD DAILY [facility] Last Admin: 05/28/19 09:15 Dose: 21 mg Potassium Chloride (K-Dur -) 20 meq PO DAILY [facility] Last Admin: 05/28/19 09:13 Dose: 20 meq Quinapril HCl (Accupril -) 5 mg PO DAILY [facility] Last Admin: 05/28/19 09:21 Dose: 5 mg Zolpidem Tartrate (Ambien -) 10 mg PO HS PRN PRN Reason: INSOMNIA Last Admin: 05/27/19 22:42 Dose: 10 mg - Objective Vital Signs: Vital Signs Temperature 98.1 F 05/28/19 05:00 Pulse Rate 69 05/28/19 08:18 Respiratory Rate 18 05/28/19 05:00 Blood Pressure 128/94 05/28/19 05:00 O2 Sat by Pulse Oximetry (%) 98 05/28/19 08:18 Eyes: Yes: WNL, Conjunctiva Clear, EOM Intact HENT: Yes: WNL, Atraumatic, Normocephalic Neck: Yes: WNL, Supple, Trachea Midline Cardiovascular: Yes: WNL, Regular Rate and Rhythm Respiratory: Yes: WNL, Regular, CTA Bilaterally Gastrointestinal: Yes: WNL, Normal Bowel Sounds Genitourinary: Yes: WNL Musculoskeletal: Yes: WNL Extremities: Yes: WNL Edema: No Integumentary: Yes: WNL Neurological: Yes: WNL, Alert, Oriented ...Motor Strength: WNL Psychiatric: Yes: WNL Labs: CBC, BMP 05/28/19 05:55 05/28/19 05:55 INR, PTT INR 1.11 (0.83-1.09) H 05/25/19 10:10 Problem List - Problems (1) Acute on chronic diastolic CHF (congestive heart failure) Code(s): I50.33 - ACUTE ON CHRONIC DIASTOLIC (CONGESTIVE) HEART FAILURE (2) Respiratory failure Code(s): J96.90 - RESPIRATORY FAILURE, UNSP, UNSP W HYPOXIA OR HYPERCAPNIA Qualifiers: Chronicity: acute Respiratory failure complication: hypoxia Qualified Code(s): J96.01 - Acute respiratory failure with hypoxia (3) Troponin I above reference range Code(s): R74.8 - ABNORMAL LEVELS OF OTHER SERUM ENZYMES (4) Abdominal pain Code(s): R10.9 - UNSPECIFIED ABDOMINAL PAIN (5) Acute CHF (congestive heart failure) Code(s): I50.9 - HEART FAILURE, UNSPECIFIED (6) Acute coronary syndrome Code(s): I24.9 - ACUTE ISCHEMIC HEART DISEASE, UNSPECIFIED (7) Acute metabolic encephalopathy Code(s): G93.41 - METABOLIC ENCEPHALOPATHY (8) Acute on chronic renal failure Code(s): N17.9 - ACUTE KIDNEY FAILURE, UNSPECIFIED; N18.9 - CHRONIC KIDNEY DISEASE, UNSPECIFIED (9) Acute on chronic systolic and diastolic heart failure, NYHA class 1 Code(s): I50.43 - ACUTE ON CHRONIC COMBINED SYSTOLIC AND DIASTOLIC HRT FAIL (10) Acute pulmonary edema Code(s): J81.0 - ACUTE PULMONARY EDEMA (11) Acute respiratory failure with hypoxia and hypercapnia Code(s): J96.01 - ACUTE RESPIRATORY FAILURE WITH HYPOXIA; J96.02 - ACUTE RESPIRATORY FAILURE WITH HYPERCAPNIA (12) Astjm-ec-aaavnho renal failure Code(s): N17.9 - ACUTE KIDNEY FAILURE, UNSPECIFIED; N18.9 - CHRONIC KIDNEY DISEASE, UNSPECIFIED (13) Anxiety and depression Code(s): F41.9 - ANXIETY DISORDER, UNSPECIFIED; F32.9 - MAJOR DEPRESSIVE DISORDER, SINGLE EPISODE, UNSPECIFIED (14) Ascending aortic aneurysm Code(s): I71.2 - THORACIC AORTIC ANEURYSM, WITHOUT RUPTURE (15) CAD (coronary artery disease) Code(s): I25.10 - ATHSCL HEART DISEASE OF [place] CORONARY ARTERY W/O ANG PCTRS Qualifiers: Coronary Disease-Associated Artery/Lesion type: [place] artery (16) CHF (congestive heart failure) Code(s): I50.9 - HEART FAILURE, UNSPECIFIED (17) CHF exacerbation Code(s): I50.9 - HEART FAILURE, UNSPECIFIED Qualifiers: Heart failure type: systolic Qualified Code(s): I50.23 - Acute on chronic systolic (congestive) heart failure (18) CKD (chronic kidney disease) Code(s): N18.9 - CHRONIC KIDNEY DISEASE, UNSPECIFIED Qualifiers: Chronic kidney disease stage: unspecified stage Qualified Code(s): N18.9 - Chronic kidney disease, unspecified (19) Chronic hypertension Code(s): I10 - ESSENTIAL (PRIMARY) HYPERTENSION (20) Chronic renal insufficiency Code(s): N18.9 - CHRONIC KIDNEY DISEASE, UNSPECIFIED Qualifiers: Chronic kidney disease stage: stage 2 (mild) Qualified Code(s): N18.2 - Chronic kidney disease, stage 2 (mild) (21) DVT prophylaxis Code(s): [id number] - (22) Elevated liver enzymes Code(s): R74.8 - ABNORMAL LEVELS OF OTHER SERUM ENZYMES (23) Elevated troponin Code(s): R74.8 - ABNORMAL LEVELS OF OTHER SERUM ENZYMES (24) HOCM (hypertrophic obstructive cardiomyopathy) Code(s): I42.1 - OBSTRUCTIVE HYPERTROPHIC CARDIOMYOPATHY (25) Hypertensive emergency Code(s): I10 - ESSENTIAL (PRIMARY) HYPERTENSION (26) Hypertensive emergency Code(s): I16.1 - HYPERTENSIVE EMERGENCY (27) Hypertensive heart disease Code(s): I11.9 - HYPERTENSIVE HEART DISEASE WITHOUT HEART FAILURE Qualifiers: Heart failure presence: with heart failure Heart failure chronicity: acute on chronic (28) Hypertensive urgency Code(s): I10 - ESSENTIAL (PRIMARY) HYPERTENSION (29) Lactic acidosis Code(s): E87.2 - ACIDOSIS (30) NSTEMI (non-ST elevated myocardial infarction) Code(s): I21.4 - NON-ST ELEVATION (NSTEMI) MYOCARDIAL INFARCTION (31) NSVT (nonsustained ventricular tachycardia) Code(s): I47.2 - VENTRICULAR TACHYCARDIA (32) Nephrolithiasis Code(s): N20.0 - CALCULUS OF KIDNEY (33) Paroxysmal A-fib Code(s): I48.0 - PAROXYSMAL ATRIAL FIBRILLATION (34) Prophylactic measure Code(s): Z29.9 - ENCOUNTER FOR PROPHYLACTIC MEASURES, UNSPECIFIED (35) Renal insufficiency Code(s): N28.9 - DISORDER OF KIDNEY AND URETER, UNSPECIFIED (36) Severe sepsis Code(s): A41.9 - SEPSIS, UNSPECIFIED ORGANISM; R65.20 - SEVERE SEPSIS WITHOUT SEPTIC SHOCK (37) Tobacco abuse Code(s): Z72.0 - TOBACCO USE Assessment/Plan 1. Acute on chronic LV systolic failure low nomal LVEF (HFpEF) 2. CAD, angina pectoris, patient states no stents 3. Post ILR 4. ? History of PAF currently not on anticoagulation 5. HTN 6. Hypercholesterolemia 7. Anemia 8. CKD 9. Elevated troponin - demand ischemia PLAN: 1. Continue Carvedilol 25 mg BID, Quinapril 5 mg QD (may uptitrate if BP remains elevated granted renal function remains stable) and Amlodipine 10 mg QD 2. ASA 81 mg QD 3. Telemetry monitoring. Obtain prior records and if there is evidence of AF, then will need to initiate anticoagulation 4. Echocardiography to be repeated to assess LV/RV and valvular function 5. Trend troponin last 0.69 6. Monitor renal function and electrolytes 7. ILR needs to be interrogated (labor mediator to be identified) 8. Diuretics and monitor renal function and electrolytes
[2019-05-28] MEDS: FUROSEMIDE 40 MG TABLET (FP) PO SCH (13:10)
--- NOTE | 2019-05-28 13:55 | ECHO ---
Name: MOSHE LIA Exam:Adult Echocardiogram Study Date: 05/28/2019 10:08 AM Age: 58 yrs Height: 76 in Weight: 217 lb BSA: 2.3 m2 MMode/2D Measurements & Calculations IVSd: 1.6 cm Ao root diam: 3.7 cm LVIDd: 4.7 cm LA dimension: 5.3 cm LVIDs: 3.9 cm LVPWd: 1.6 cm LVPWs: 1.6 cm EDV(Teich): 103.1 ml ESV(Teich): 64.2 ml LVOT diam: 2.4 cm LAV (MOD-bp): 132.0 ml Doppler Measurements & Calculations MV E max grayson: 48.4 cm/sec Ao V2 max: 127.4 cm/sec MV A max grayson: 65.6 cm/sec Ao max P.5 mmHg MV E/A: 0.74 AI P1/2t: 550.5 msec MV dec time: 0.21 sec TYRELL(V,D): 2.3 cm2 AI max grayson: 355.8 cm/sec LV V1 max P.9 mmHg AI max P.7 mmHg LV V1 max: 68.1 cm/sec AI dec slope: 189.3 cm/sec2 MR max grayson: 453.9 cm/sec TR max grayson: 250.5 cm/sec MR max P.4 mmHg TR max P.1 mmHg PA V2 max: 82.3 cm/sec Med Peak E' Grayson: 3.7 cm/sec PA max P.7 mmHg Med E/e': 13.2 Lat Peak E' Grayson: 9.8 cm/sec Lat E/e': 5.0 Procedure The study was technically adequate with some images being suboptimal in quality. Left Ventricle The left ventricle is normal in size. There is moderate concentric left ventricular hypertrophy. Left ventricular systolic function is mild to moderately reduced. Ejection Fraction = 40-45%. Grade I terrell tolic dysfunction, (abnormal relaxation pattern). Right Ventricle The right ventricle is normal in size and function. Atria The left atrium is moderately dilated. The right atrium is mild to moderately dilated. Mitral Valve The mitral valve leaflets appear normal. There is no evidence of stenosis, fluttering, or prolapse. T here is mild mitral regurgitation. Tricuspid Valve The tricuspid valve is not well visualized, but is grossly normal. There is trace tricuspid regurgita tion. There was insufficient TR detected to calculate RV systolic pressure. Aortic Valve The aortic valve opens well. The aortic valve is trileaflet. Trace aortic regurgitation. Pulmonic Valve The pulmonic valve is not well visualized. Trace pulmonic valvular regurgitation. Great Vessels The aortic root is normal size. Pericardium/Pleura There is no pericardial effusion. Interpretation Summary In comparison to previous study performed 01/24/2019, LVEF has decreased. The left ventricle is scottie l in size. There is moderate concentric left ventricular hypertrophy. The left atrium is moderately dilated. Trace pulmonic valvular regurgitation. There is trace tricuspid regurgitation. The right ventricle is normal in size and function. The right atrium is mild to moderately dilated. Left ventricular systolic function is mild to moderately reduced. In comparison to previous study performed 01/24/2019, LVEF has decreased. Ejection Fraction = 40-45%. Lia Quiros MD 05/28/2019 01:54 PM
[2019-05-28] MEDS: ZOLPIDEM TARTRATE 5 MG TABLET PO PRN (21:20)
[2019-05-28] MEDS: MIRTAZAPINE 15 MG TABLET (FP) PO SCH (21:21)
[2019-05-29] MEDS: FUROSEMIDE 40 MG TABLET (FP) PO SCH (05:54)
[2019-05-29 07:10] LABS: BASO % 0.9 % (0-2.0); EOS % 4.4 % (0-4.5); HEMATOCRIT 33.8 % (35.4-49); HEMOGLOBIN 10.6 GM/dL (11.7-16.9); LYMPH % 36.3 % (8-40); MCH 26.5 pg (25.7-33.7); MCHC 31.4 g/dl (32.0-35.9); MEAN CELL VOLUME 84.4 fl (80-96); MONO % 15.1 % (3.8-10.2); NEUT % 43.3 % (42.8-82.8); PLATELET COUNT 193 K/MM3 (134-434); RBC 4.01 M/mm3 (4.00-5.60); RDW 15.8 % (11.9-15.9); WHITE BLOOD COUNT 4.2 K/mm3 (4.0-10.0)
[2019-05-29 08:02] LABS: ALBUMIN 3.3 g/dl (3.4-5.0); BILIRUBIN,TOTAL 0.5 mg/dL (0.2-1); BLOOD UREA NITROGEN 36.4 mg/dL (7-18); CALCIUM 8.3 mg/dL (8.5-10.1); CREATININE 1.7 mg/dL (0.55-1.3); MAGNESIUM 2.2 mg/dL (1.8-2.4)
[2019-05-29] MEDS ORDERED: PT OWN MED DRAWER 7, Y5N ONE (10:38)
[2019-05-29] MEDS: HEPARIN NA (PORCINE) 5,000 UNITS/ML 1ML VIAL SQ SCH ×2 (10:42→23:06)
[2019-05-29] MEDS: FERROUS SO4 325 MG TABLET (FP) PO SCH ×3 (10:42→18:42)
[2019-05-29] MEDS: amLODIPine BESYLATE 10 MG TABLET (FP) PO SCH (10:42)
[2019-05-29] MEDS: POTASSIUM CHLORIDE TABS 10 MEQ TABLET.ER (FP) PO SCH (10:42)
[2019-05-29] MEDS: FOLIC ACID 1 MG TABLET (FP) PO SCH (10:42)
[2019-05-29] MEDS: CARVEDILOL 25 MG TABLET (FP) PO SCH (10:42)
[2019-05-29] MEDS: ASPIRIN COATED 81 MG TABLET.EC PO SCH (10:42)
[2019-05-29] MEDS: DULoxetine HCL 30 MG CAPSULE.DR PO SCH (10:42)
[2019-05-29] MEDS: QUINAPRIL HCL 5 MG TABLET (FP) PO SCH (10:42)
[2019-05-29] MEDS: NICOTINE 21 MG/24 HOURS TOPICAL PATCH TD SCH (10:43)
--- NOTE | 2019-05-29 11:40 | PN ---
Progress Note, Physician Chief Complaint: Pt A&Ox3; sitting up at bedside; no chest pain, dyspnea, palpitations/ c/o having to take so many pills. History of Present Illness: 58 black man with h/o systolic/diastolic CHF EF 45% 12/2017, and worseing LV EF on 05/2019 ECHO, sleep apnea, HTN, implanted loop recorder (multiple admissions for CHF, with NSVT several times), depression leading to periods of noncompliance to medications; smoker, presenting to ED with SOB. Pt reports feeling unwell for several days with progressively worsening SOB that acutely worsened today. He reports mild chest pain. Has not noticed any significant pitting edema. Pt was placed on CPAP by EMS and given 2 SL nitros, which he states helped a little. In ED, pt was hypertensive to 160/120. Pt was placed on BIPAP with in-line nebulizers Nitro gtt initiated at 200mcg/min IV Lasix administered - Current Medication List Current Medications: Active Medications Acetaminophen (Tylenol -) 650 mg PO Q6H PRN PRN Reason: PAIN LEVEL 7 - 10 Last Admin: 05/25/19 16:03 Dose: 650 mg Amlodipine Besylate (Norvasc -) 10 mg PO DAILY [facility] Last Admin: 05/29/19 10:42 Dose: 10 mg Aspirin (Ecotrin -) 81 mg PO DAILY [facility] Last Admin: 05/29/19 10:42 Dose: 81 mg Carvedilol (Coreg -) 25 mg PO BID [facility] Last Admin: 05/29/19 10:42 Dose: 25 mg Duloxetine HCl (Cymbalta -) 60 mg PO DAILY [facility] Last Admin: 05/29/19 10:42 Dose: 60 mg Ferrous Sulfate (Feosol -) 325 mg PO TIDCM [facility] Last Admin: 05/29/19 10:42 Dose: 325 mg Folic Acid (Folic Acid -) 1 mg PO DAILY [facility] Last Admin: 05/29/19 10:42 Dose: 1 mg Furosemide (Lasix -) 40 mg PO BID@0600,1400 [facility] Last Admin: 05/29/19 05:54 Dose: 40 mg Heparin Sodium (Porcine) (Heparin -) 5,000 unit SQ BID [facility] Last Admin: 05/29/19 10:42 Dose: 5,000 unit Mirtazapine (Remeron -) 15 mg PO HS [facility] Last Admin: 05/28/19 21:21 Dose: 15 mg Nicotine (Nicoderm Patch -) 21 mg TD DAILY [facility] Last Admin: 05/29/19 10:43 Dose: 21 mg Potassium Chloride (K-Dur -) 20 meq PO DAILY [facility] Last Admin: 05/29/19 10:42 Dose: 20 meq Quinapril HCl (Accupril -) 5 mg PO DAILY [facility] Last Admin: 05/29/19 10:42 Dose: 5 mg - Objective Vital Signs: Vital Signs Temperature 97.6 F 05/29/19 06:00 Pulse Rate 56 L 05/29/19 10:00 Respiratory Rate 18 05/29/19 10:00 Blood Pressure 115/77 05/29/19 10:00 O2 Sat by Pulse Oximetry (%) 100 05/29/19 05:30 Constitutional: Yes: Anxious Eyes: Yes: WNL HENT: Yes: WNL Neck: Yes: WNL Cardiovascular: Yes: S1, S2, S4 Respiratory: Yes: WNL Gastrointestinal: Yes: Soft ...Rectal Exam: Yes: Deferred Genitourinary: No: Anuria Breast(s): Yes: WNL Musculoskeletal: Yes: Muscle Weakness Extremities: Yes: WNL Edema: No Peripheral Pulses WNL: Yes Integumentary: Yes: WNL Neurological: Yes: WNL Psychiatric: Yes: Alert, Oriented, Other (depression) Labs: CBC, BMP 05/29/19 06:20 05/29/19 06:20 INR, PTT INR 1.11 (0.83-1.09) H 05/25/19 10:10 Abnormal Lab Results 05/29/19 05/29/19 06:20 06:20 Hgb 10.6 L Hct 33.8 L MCHC 31.4 L Monocytes % 15.1 H BUN 36.4 H Creatinine 1.7 H Calcium 8.3 L AST 14 L Albumin 3.3 L - ....Imaging Chest X-ray: Image Reviewed EKG: Image Reviewed Problem List - Problems (1) Status post placement of implantable loop recorder Assessment/Plan: f/u results as outpatient. Hx NSVT. Code(s): Z95.818 - PRESENCE OF OTHER CARDIAC IMPLANTS AND GRAFTS (2) Non compliance w medication regimen Code(s): Z91.14 - PATIENT'S OTHER NONCOMPLIANCE WITH MEDICATION REGIMEN (3) Anxiety and depression Code(s): F41.9 - ANXIETY DISORDER, UNSPECIFIED; F32.9 - MAJOR DEPRESSIVE DISORDER, SINGLE EPISODE, UNSPECIFIED (4) Paroxysmal A-fib Assessment/Plan: Reported hx; on loop recorder. If true hx PAF, will need anticoagulatn. (e.g. rivaroxaban). Code(s): I48.0 - PAROXYSMAL ATRIAL FIBRILLATION (5) Renal insufficiency Assessment/Plan: avoid excessive dehydration. Furosemide stopped; now on spironolactone. Code(s): N28.9 - DISORDER OF KIDNEY AND URETER, UNSPECIFIED (6) Tobacco abuse Assessment/Plan: on Nicoderm patch. Code(s): Z72.0 - TOBACCO USE (7) Acute on chronic systolic and diastolic heart failure, NYHA class 2 Assessment/Plan: Pt has improved symptomatically. F/u CXR. Hx nonischemic cardiomyopathy by coronary angiogram; NSVT. Pt c/o "too many medications"; he has been noncompliant in the past. Will try to reduce number of pills (e.g. change Coreg bid to metoprolol ER qd; d /c Lasix bid and start spironolactone qd). Continue ACEI; discontinue amlodipine. F/u BUn/Cr, electrolytes, daily weight, Is and Os; BP and HR. 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 Code(s): G47.30 - SLEEP APNEA, UNSPECIFIED (9) NSVT (nonsustained ventricular tachycardia) Assessment/Plan: On metoprolol ER. On ACEI (increase dose) and spironolactone. Has implanted loop recorder. Mild-moderately reduced LVEF. It will be essential for him to be followed up by EP when discharged home. Code(s): I47.2 - VENTRICULAR TACHYCARDIA (10) Noncompliance w/medication treatment due to intermit use of medication Assessment/Plan: Depression sometimes causes him to stop taking all medications; he then develops flash pulmonary edema and/or NSVT. Code(s): Z91.14 - PATIENT'S OTHER NONCOMPLIANCE WITH MEDICATION REGIMEN (11) Anemia Code(s): D64.9 - ANEMIA, UNSPECIFIED (12) Depression Code(s): F32.9 - MAJOR DEPRESSIVE DISORDER, SINGLE EPISODE, UNSPECIFIED (13) HTN (hypertension) Assessment/Plan: Mild-moderate LV systolic dysfunction. On ramipril (increase dose as tolerated--f/u BP, BUN/Cr, electrolytes, especially since now on spironolactone), metoprolol ER. Started spironolactone. Restart amlodipine if BP remains elevated despite optimization of the doses of above meds. Code(s): I10 - ESSENTIAL (PRIMARY) HYPERTENSION (14) Nonischemic cardiomyopathy Code(s): I42.8 - OTHER CARDIOMYOPATHIES
[2019-05-29] MEDS: SPIRONOLACTONE 25 MG TABLET (FP) PO SCH (14:32)
[2019-05-29] MEDS ORDERED: QUINAPRIL HCL 5 MG TABLET (FP) PO ONE (15:00)
--- NOTE | 2019-05-29 15:59 | PN ---
Physical Exam: SUBJECTIVE: Patient seen and examined OBJECTIVE: Patient is a 58 year old male with a significant past medical history of diastolic CHF, aortic aneurysm (w/mild dilation), FABRICIO, HTN, nonobstructive CAD ( multiple caths done at other tertiary care centers), past hx lithotripsy for left nephrolithiasis, active smoker (6 cigarettes per day and marijuana) s/p loop recorder 2 months ago. He presents to [facility] ED for acute respiratory failure and chest pressure, non radiating. Vital Signs Period Temp Pulse Resp BP Sys/Rosado Pulse Ox Last 24 Hr 97.6 F-98.6 F 53-72 16-20 115-131/77-103 100-100 GENERAL: Awake, alert, and fully oriented, in no acute distress. HEAD: Normal with no signs of trauma. EYES: Pupils equal, round and reactive to light, extraocular movements intact, sclera anicteric, conjunctiva clear. No lid lag. EARS, NOSE, THROAT: Ears normal, nares patent, oropharynx clear without exudates. Moist mucous membranes. NECK: Normal range of motion, supple without lymphadenopathy, JVD, or masses. LUNGS: Breath sounds equal, diminished bilaterally HEART: Regular rate and rhythm ABDOMEN: Soft, nontender, not distended, normoactive bowel sounds, no guarding, no rebound, no masses. No hepatomegaly or splenomegaly. MUSCULOSKELETAL: Normal range of motion at all joints. No bony deformities or tenderness. No CVA tenderness. UPPER EXTREMITIES: No peripheral edema. LOWER EXTREMITIES: No peripheral edema. NEUROLOGICAL: Normal speech. PSYCHIATRIC: Cooperative. Good eye contact. Appropriate mood and affect. SKIN: Warm, dry, normal turgor, no rashes or lesions noted, normal capillary refill. Laboratory Results - last 24 hr 05/28/19 05/28/19 05/29/19 15:15 21:20 06:20 WBC 4.2 RBC 4.01 Hgb 10.6 L Hct 33.8 L MCV 84.4 MCH 26.5 MCHC 31.4 L RDW 15.8 Plt Count 193 MPV 8.0 Absolute Neuts (auto) 1.8 Neutrophils % 43.3 D Lymphocytes % 36.3 D Monocytes % 15.1 H Eosinophils % 4.4 D Basophils % 0.9 Nucleated RBC % 0 Sodium Potassium Chloride Carbon Dioxide Anion Gap BUN Creatinine Est GFR (CKD-EPI)AfAm Est GFR (CKD-EPI)NonAf Random Glucose Calcium Magnesium Total Bilirubin AST ALT Alkaline Phosphatase Troponin I 0.43 H 0.44 H Total Protein Albumin 05/29/19 06:20 WBC RBC Hgb Hct MCV MCH MCHC RDW Plt Count MPV Absolute Neuts (auto) Neutrophils % Lymphocytes % Monocytes % Eosinophils % Basophils % Nucleated RBC % Sodium 139 Potassium 4.0 Chloride 106 Carbon Dioxide 25 Anion Gap 8 BUN 36.4 H Creatinine 1.7 H Est GFR (CKD-EPI)AfAm 50.05 Est GFR (CKD-EPI)NonAf 43.18 Random Glucose 88 Calcium 8.3 L Magnesium 2.2 Total Bilirubin 0.5 AST 14 L ALT 28 Alkaline Phosphatase 82 Troponin I Total Protein 7.0 Albumin 3.3 L Active Medications Generic Name Dose Route Start Last Admin Trade Name Freq PRN Reason Stop Dose Admin Acetaminophen 650 mg 05/25/19 15:37 05/25/19 16:03 Tylenol - PO 650 mg Q6H PRN Administration PAIN LEVEL 7 - 10 Aspirin 81 mg 05/26/19 10:00 05/29/19 10:42 Ecotrin - PO 81 mg DAILY [facility] Administration Duloxetine HCl 60 mg 05/26/19 10:00 05/29/19 10:42 Cymbalta - PO 60 mg DAILY [facility] Administration Ferrous Sulfate 325 mg 05/25/19 17:30 05/29/19 14:32 Feosol - PO 325 mg TIDCM [facility] Administration Folic Acid 1 mg 05/26/19 10:00 05/29/19 10:42 Folic Acid - PO 1 mg DAILY [facility] Administration Heparin Sodium (Porcine) 5,000 unit 05/25/19 22:00 05/29/19 10:42 Heparin - SQ 5,000 unit BID [facility] Administration Metoprolol Succinate 50 mg 05/30/19 10:00 Toprol Xl - PO DAILY [facility] Mirtazapine 15 mg 05/26/19 22:00 05/28/19 21:21 Remeron - PO 15 mg HS [facility] Administration Nicotine 21 mg 05/25/19 18:30 05/29/19 10:43 Nicoderm Patch - TD 21 mg DAILY [facility] Administration Quinapril HCl 10 mg 05/30/19 10:00 Accupril - PO DAILY [facility] Spironolactone 25 mg 05/29/19 12:00 05/29/19 14:32 Aldactone - PO 25 mg DAILY [facility] Administration ASSESSMENT/PLAN: Problem List - Problems (1) Acute on chronic systolic and diastolic heart failure, NYHA class 2 Assessment/Plan: Pt has improved symptomatically. F/u CXR. Hx nonischemic cardiomyopathy; NSVT. F/u BUn/Cr, electrolytes, daily weight, Is and Os; BP and HR. Pt has been noncompliant in the past with medications, meds changed to reduce pill burden: on metoprolol er, sprionolactone daily, quinapirl Code(s): I50.43 - ACUTE ON CHRONIC COMBINED SYSTOLIC AND DIASTOLIC HRT FAIL (2) Hypertensive emergency Assessment/Plan: better controlled on quinopril and toprol Code(s): I16.1 - HYPERTENSIVE EMERGENCY (3) Acute on chronic diastolic CHF (congestive heart failure) Assessment/Plan: Edema, SOB improved c/w lasix BID, change to PO 40mg daily weights low sodium diet Code(s): I50.33 - ACUTE ON CHRONIC DIASTOLIC (CONGESTIVE) HEART FAILURE (4) Troponin I above reference range Assessment/Plan: had chest pain on presentation and placed on nitro drip. chest pain resolved and off nitro drip Trop elevated, consistent with prior visits, with no new EKG changes cardiology following Code(s): R74.8 - ABNORMAL LEVELS OF OTHER SERUM ENZYMES (5) Acute on chronic renal failure Assessment/Plan: monitor daily on diuresis Code(s): N17.9 - ACUTE KIDNEY FAILURE, UNSPECIFIED; N18.9 - CHRONIC KIDNEY DISEASE, UNSPECIFIED (6) Non compliance w medication regimen Assessment/Plan: stress importance of follow ups, med compliance and avoidance of frequent hospitalizations Code(s): Z91.14 - PATIENT'S OTHER NONCOMPLIANCE WITH MEDICATION REGIMEN (7) Acute respiratory failure with hypoxia and hypercapnia Code(s): J96.01 - ACUTE RESPIRATORY FAILURE WITH HYPOXIA; J96.02 - ACUTE RESPIRATORY FAILURE WITH HYPERCAPNIA (8) Tobacco abuse Assessment/Plan: nicotine patch Code(s): Z72.0 - TOBACCO USE (9) Acute pulmonary edema Assessment/Plan: Code(s): J81.0 - ACUTE PULMONARY EDEMA (10) Sleep apnea Assessment/Plan: pulmonary consulted may need outpatient f/u for sleep study Code(s): G47.30 - SLEEP APNEA, UNSPECIFIED Visit type - Emergency Visit Emergency Visit: Yes ED Registration Date: 05/25/19 Care time: The patient presented to the Emergency Department on the above date and was hospitalized for further evaluation of their emergent condition. - New Patient This patient is new to me today: No - Critical Care Critical Care patient: No - Discharge Referral Referred to [facility] Med P.C[facility] No
[2019-05-29] MEDS ORDERED: ZOLPIDEM TARTRATE 5 MG TABLET PO PRN (22:34)
[2019-05-29] MEDS: MIRTAZAPINE 15 MG TABLET (FP) PO SCH (23:06)
[2019-05-30 08:00] LABS: BASO % 1.1 % (0-2.0); EOS % 3.6 % (0-4.5); HEMATOCRIT 31.2 % (35.4-49); LYMPH % 39.5 % (8-40); MEAN CELL VOLUME 84.4 fl (80-96); MONO % 11.7 % (3.8-10.2); NEUT % 44.1 % (42.8-82.8); PLATELET COUNT 193 K/MM3 (134-434); RDW 15.3 % (11.9-15.9); WHITE BLOOD COUNT 4.3 K/mm3 (4.0-10.0)
[2019-05-30 09:09] LABS: ALBUMIN 3.1 g/dl (3.4-5.0); BILIRUBIN,TOTAL 0.5 mg/dL (0.2-1); BLOOD UREA NITROGEN 31.9 mg/dL (7-18); CALCIUM 8.6 mg/dL (8.5-10.1); CREATININE 1.5 mg/dL (0.55-1.3); MAGNESIUM 2.2 mg/dL (1.8-2.4); POTASSIUM 4.1 mmol/L (3.5-5.1); TOT PROT 6.5 g/dl (6.4-8.2)
[2019-05-30] MEDS ORDERED: QUINAPRIL HCL 10 MG TABLET (FP) PO SCH (10:00)
[2019-05-30] MEDS ORDERED: PT OWN MED DRAWER 7, Y5N ONE (10:10)
[2019-05-30] MEDS: NICOTINE 21 MG/24 HOURS TOPICAL PATCH TD SCH (10:14)
[2019-05-30] MEDS: FERROUS SO4 325 MG TABLET (FP) PO SCH ×2 (10:14→14:34)
[2019-05-30] MEDS: SPIRONOLACTONE 25 MG TABLET (FP) PO SCH (10:14)
[2019-05-30] MEDS: ASPIRIN COATED 81 MG TABLET.EC PO SCH (10:15)
[2019-05-30] MEDS: FOLIC ACID 1 MG TABLET (FP) PO SCH (10:15)
[2019-05-30] MEDS: DULoxetine HCL 30 MG CAPSULE.DR PO SCH (10:15)
[2019-05-30] MEDS: HEPARIN NA (PORCINE) 5,000 UNITS/ML 1ML VIAL SQ SCH (10:33)
--- NOTE | 2019-05-30 11:05 | PN ---
Progress Note, Physician History of Present Illness: Pt is a 58 yo M, with PMH of CHF (frequent exacerbations, intubated in the past) , CAD (s/p stent x1, on Plavix), arrhythmia? (with loop recorder), HTN, HLD, and anemia, who is presenting with severe SOB and chest pressure since this morning. Pt began having SOB this morning when he got up to use the bathroom, with mild chest pressure which is non-radiating, and not associated with nausea/ vomiting/diaphoresis. Pt states his diet "hasn't been right," but endorses medication compliance (including Lasix 40 Qday). Pt denies any fevers/chills, headache, vision changes, cough or sputum change from baseline, syncope, palpitations, nausea/vomiting, abdominal pain, urinary symptoms, diarrhea/ constipation, or leg swelling. - Current Medication List Current Medications: Active Medications Acetaminophen (Tylenol -) 650 mg PO Q6H PRN PRN Reason: PAIN LEVEL 7 - 10 Last Admin: 05/25/19 16:03 Dose: 650 mg Aspirin (Ecotrin -) 81 mg PO DAILY [facility] Last Admin: 05/30/19 10:15 Dose: 81 mg Duloxetine HCl (Cymbalta -) 60 mg PO DAILY [facility] Last Admin: 05/30/19 10:15 Dose: 60 mg Ferrous Sulfate (Feosol -) 325 mg PO TIDCM [facility] Last Admin: 05/30/19 10:14 Dose: 325 mg Folic Acid (Folic Acid -) 1 mg PO DAILY [facility] Last Admin: 05/30/19 10:15 Dose: 1 mg Heparin Sodium (Porcine) (Heparin -) 5,000 unit SQ BID [facility] Last Admin: 05/29/19 23:06 Dose: 5,000 unit Metoprolol Succinate (Toprol Xl -) 50 mg PO DAILY [facility] Last Admin: 05/30/19 10:15 Dose: 50 mg Mirtazapine (Remeron -) 15 mg PO HS [facility] Last Admin: 05/29/19 23:06 Dose: 15 mg Nicotine (Nicoderm Patch -) 21 mg TD DAILY [facility] Last Admin: 05/30/19 10:14 Dose: 21 mg Quinapril HCl (Accupril -) 10 mg PO DAILY [facility] Last Admin: 05/30/19 10:14 Dose: 10 mg Spironolactone (Aldactone -) 25 mg PO DAILY [facility] Last Admin: 05/30/19 10:14 Dose: 25 mg Zolpidem Tartrate (Ambien -) 10 mg PO HS PRN PRN Reason: INSOMNIA Last Admin: 05/29/19 23:07 Dose: 10 mg - Objective Vital Signs: Vital Signs Temperature 97.5 F L 05/30/19 06:00 Pulse Rate 52 L 05/30/19 06:00 Respiratory Rate 18 05/30/19 06:00 Blood Pressure 117/78 05/30/19 06:00 O2 Sat by Pulse Oximetry (%) 95 05/30/19 08:59 Eyes: Yes: WNL, Conjunctiva Clear, EOM Intact HENT: Yes: WNL, Atraumatic, Normocephalic Neck: Yes: WNL, Supple, Trachea Midline Cardiovascular: Yes: WNL, Regular Rate and Rhythm Respiratory: Yes: WNL, Regular, CTA Bilaterally Gastrointestinal: Yes: WNL, Normal Bowel Sounds Genitourinary: Yes: WNL Musculoskeletal: Yes: WNL Extremities: Yes: WNL Edema: No Integumentary: Yes: WNL Neurological: Yes: WNL, Alert, Oriented ...Motor Strength: WNL Psychiatric: Yes: WNL Labs: CBC, BMP 05/30/19 07:05 05/30/19 07:05 INR, PTT INR 1.11 (0.83-1.09) H 05/25/19 10:10 Problem List - Problems (1) Acute on chronic diastolic CHF (congestive heart failure) Code(s): I50.33 - ACUTE ON CHRONIC DIASTOLIC (CONGESTIVE) HEART FAILURE (2) Respiratory failure Code(s): J96.90 - RESPIRATORY FAILURE, UNSP, UNSP W HYPOXIA OR HYPERCAPNIA Qualifiers: Chronicity: acute Respiratory failure complication: hypoxia Qualified Code(s): J96.01 - Acute respiratory failure with hypoxia (3) Troponin I above reference range Code(s): R74.8 - ABNORMAL LEVELS OF OTHER SERUM ENZYMES (4) Abdominal pain Code(s): R10.9 - UNSPECIFIED ABDOMINAL PAIN (5) Acute CHF (congestive heart failure) Code(s): I50.9 - HEART FAILURE, UNSPECIFIED (6) Acute coronary syndrome Code(s): I24.9 - ACUTE ISCHEMIC HEART DISEASE, UNSPECIFIED (7) Acute metabolic encephalopathy Code(s): G93.41 - METABOLIC ENCEPHALOPATHY (8) Acute on chronic renal failure Code(s): N17.9 - ACUTE KIDNEY FAILURE, UNSPECIFIED; N18.9 - CHRONIC KIDNEY DISEASE, UNSPECIFIED (9) Acute on chronic systolic and diastolic heart failure, NYHA class 1 Code(s): I50.43 - ACUTE ON CHRONIC COMBINED SYSTOLIC AND DIASTOLIC HRT FAIL (10) Acute pulmonary edema Code(s): J81.0 - ACUTE PULMONARY EDEMA (11) Acute respiratory failure with hypoxia and hypercapnia Code(s): J96.01 - ACUTE RESPIRATORY FAILURE WITH HYPOXIA; J96.02 - ACUTE RESPIRATORY FAILURE WITH HYPERCAPNIA (12) [id number] renal failure Code(s): N17.9 - ACUTE KIDNEY FAILURE, UNSPECIFIED; N18.9 - CHRONIC KIDNEY DISEASE, UNSPECIFIED (13) Anxiety and depression Code(s): F41.9 - ANXIETY DISORDER, UNSPECIFIED; F32.9 - MAJOR DEPRESSIVE DISORDER, SINGLE EPISODE, UNSPECIFIED (14) Ascending aortic aneurysm Code(s): I71.2 - THORACIC AORTIC ANEURYSM, WITHOUT RUPTURE (15) CAD (coronary artery disease) Code(s): I25.10 - ATHSCL HEART DISEASE OF [place] CORONARY ARTERY W/O ANG PCTRS Qualifiers: Coronary Disease-Associated Artery/Lesion type: [place] artery (16) CHF (congestive heart failure) Code(s): I50.9 - HEART FAILURE, UNSPECIFIED (17) CHF exacerbation Code(s): I50.9 - HEART FAILURE, UNSPECIFIED Qualifiers: Heart failure type: systolic Qualified Code(s): I50.23 - Acute on chronic systolic (congestive) heart failure (18) CKD (chronic kidney disease) Code(s): N18.9 - CHRONIC KIDNEY DISEASE, UNSPECIFIED Qualifiers: Chronic kidney disease stage: unspecified stage Qualified Code(s): N18.9 - Chronic kidney disease, unspecified (19) Chronic hypertension Code(s): I10 - ESSENTIAL (PRIMARY) HYPERTENSION (20) Chronic renal insufficiency Code(s): N18.9 - CHRONIC KIDNEY DISEASE, UNSPECIFIED Qualifiers: Chronic kidney disease stage: stage 2 (mild) Qualified Code(s): N18.2 - Chronic kidney disease, stage 2 (mild) (21) DVT prophylaxis Code(s): [id number] - (22) Elevated liver enzymes Code(s): R74.8 - ABNORMAL LEVELS OF OTHER SERUM ENZYMES (23) Elevated troponin Code(s): R74.8 - ABNORMAL LEVELS OF OTHER SERUM ENZYMES (24) HOCM (hypertrophic obstructive cardiomyopathy) Code(s): I42.1 - OBSTRUCTIVE HYPERTROPHIC CARDIOMYOPATHY (25) Hypertensive emergency Code(s): I10 - ESSENTIAL (PRIMARY) HYPERTENSION (26) Hypertensive emergency Code(s): I16.1 - HYPERTENSIVE EMERGENCY (27) Hypertensive heart disease Code(s): I11.9 - HYPERTENSIVE HEART DISEASE WITHOUT HEART FAILURE Qualifiers: Heart failure presence: with heart failure Heart failure chronicity: acute on chronic (28) Hypertensive urgency Code(s): I10 - ESSENTIAL (PRIMARY) HYPERTENSION (29) Lactic acidosis Code(s): E87.2 - ACIDOSIS (30) NSTEMI (non-ST elevated myocardial infarction) Code(s): I21.4 - NON-ST ELEVATION (NSTEMI) MYOCARDIAL INFARCTION (31) NSVT (nonsustained ventricular tachycardia) Code(s): I47.2 - VENTRICULAR TACHYCARDIA (32) Nephrolithiasis Code(s): N20.0 - CALCULUS OF KIDNEY (33) Paroxysmal A-fib Code(s): I48.0 - PAROXYSMAL ATRIAL FIBRILLATION (34) Prophylactic measure Code(s): Z29.9 - ENCOUNTER FOR PROPHYLACTIC MEASURES, UNSPECIFIED (35) Renal insufficiency Code(s): N28.9 - DISORDER OF KIDNEY AND URETER, UNSPECIFIED (36) Severe sepsis Code(s): A41.9 - SEPSIS, UNSPECIFIED ORGANISM; R65.20 - SEVERE SEPSIS WITHOUT SEPTIC SHOCK (37) Tobacco abuse Code(s): Z72.0 - TOBACCO USE Assessment/Plan - Problems (1) Status post placement of implantable loop recorder Assessment/Plan: f/u results as outpatient. Hx NSVT. Code(s): Z95.818 - PRESENCE OF OTHER CARDIAC IMPLANTS AND GRAFTS (2) Non compliance w medication regimen Code(s): Z91.14 - PATIENT'S OTHER NONCOMPLIANCE WITH MEDICATION REGIMEN (3) Anxiety and depression Code(s): F41.9 - ANXIETY DISORDER, UNSPECIFIED; F32.9 - MAJOR DEPRESSIVE DISORDER, SINGLE EPISODE, UNSPECIFIED (4) Paroxysmal A-fib Assessment/Plan: Reported hx; on loop recorder. If true hx PAF, will need anticoagulatn. (e.g. rivaroxaban). Code(s): I48.0 - PAROXYSMAL ATRIAL FIBRILLATION (5) Renal insufficiency Assessment/Plan: avoid excessive dehydration. Furosemide stopped; now on spironolactone. Code(s): N28.9 - DISORDER OF KIDNEY AND URETER, UNSPECIFIED (6) Tobacco abuse Assessment/Plan: on Nicoderm patch. Code(s): Z72.0 - TOBACCO USE (7) Acute on chronic systolic and diastolic heart failure, NYHA class 2 Assessment/Plan: Pt has improved symptomatically. F/u CXR. Hx nonischemic cardiomyopathy by coronary angiogram; NSVT. Pt c/o "too many medications"; he has been noncompliant in the past. Will try to reduce number of pills (e.g. change Coreg bid to metoprolol ER qd; d /c Lasix bid and start spironolactone qd). Continue ACEI; discontinue amlodipine. F/u BUn/Cr, electrolytes, daily weight, Is and Os; BP and HR. Code(s): I50.43 - ACUTE ON CHRONIC COMBINED SYSTOLIC AND DIASTOLIC HRT FAIL (8) Sleep apnea Assessment/Plan: Bipap per adult care manager. Code(s): G47.30 - SLEEP APNEA, UNSPECIFIED (9) NSVT (nonsustained ventricular tachycardia) Assessment/Plan: On metoprolol ER. On ACEI (increase dose) and spironolactone. Has implanted loop recorder. Mild-moderately reduced LVEF. It will be essential for him to be followed up by EP when discharged home. Code(s): I47.2 - VENTRICULAR TACHYCARDIA (10) Noncompliance w/medication treatment due to intermit use of medication Assessment/Plan: Depression sometimes causes him to stop taking all medications; he then develops flash pulmonary edema and/or NSVT. Code(s): Z91.14 - PATIENT'S OTHER NONCOMPLIANCE WITH MEDICATION REGIMEN (11) Anemia Code(s): D64.9 - ANEMIA, UNSPECIFIED (12) Depression Code(s): F32.9 - MAJOR DEPRESSIVE DISORDER, SINGLE EPISODE, UNSPECIFIED (13) HTN (hypertension) Assessment/Plan: Mild-moderate LV systolic dysfunction. On ramipril (increase dose as tolerated--f/u BP, BUN/Cr, electrolytes, especially since now on spironolactone), metoprolol ER. Started spironolactone. Restart amlodipine if BP remains elevated despite optimization of the doses of above meds. Code(s): I10 - ESSENTIAL (PRIMARY) HYPERTENSION (14) Nonischemic cardiomyopathy Code(s): I42.8 - OTHER CARDIOMYOPATHIES
--- NOTE | 2019-05-30 11:43 | PN ---
Progress Note (short form) - Note Progress Note: PULMONARY CONSULTATION DICTATED 05/30/19 IMP ACUTE HYPOXEMIC RESPIRATORY FAILURE ACUTE ON CHRONIC DIASTOLIC CHF + TROPONIN NON-OBSTRUCTIVE CAD HYPERTENSIVE CARDIOVASCULAR DISEASE H/O NSVT MILD OSAS ANEMIA ACUTE ON CHRONIC KIDNEY DISEASE SMOKER PLAN DIURETICS SUPPLEMENTAL O2 INHALED BRONCHODILATORS NEEDED DAILY WTS MONITOR LYTES,RENAL FUNCTION H+H TREND TROPONIN SMOKING CESSATION COUNSELED DR MAE Problem List - Problems (1) Acute on chronic systolic and diastolic heart failure, NYHA class 2 Code(s): I50.43 - ACUTE ON CHRONIC COMBINED SYSTOLIC AND DIASTOLIC HRT FAIL (2) Anemia Code(s): D64.9 - ANEMIA, UNSPECIFIED (3) Depression Code(s): F32.9 - MAJOR DEPRESSIVE DISORDER, SINGLE EPISODE, UNSPECIFIED (4) Sleep apnea Code(s): G47.30 - SLEEP APNEA, UNSPECIFIED (5) Status post placement of implantable loop recorder Code(s): Z95.818 - PRESENCE OF OTHER CARDIAC IMPLANTS AND GRAFTS (6) Troponin I above reference range Code(s): R74.8 - ABNORMAL LEVELS OF OTHER SERUM ENZYMES (7) [id number] renal failure Code(s): N17.9 - ACUTE KIDNEY FAILURE, UNSPECIFIED; N18.9 - CHRONIC KIDNEY DISEASE, UNSPECIFIED (8) Ascending aortic aneurysm Code(s): I71.2 - THORACIC AORTIC ANEURYSM, WITHOUT RUPTURE (9) CAD (coronary artery disease) Code(s): I25.10 - ATHSCL HEART DISEASE OF [place] CORONARY ARTERY W/O ANG PCTRS Qualifiers: Coronary Disease-Associated Artery/Lesion type: [place] artery (10) Chronic hypertension Code(s): I10 - ESSENTIAL (PRIMARY) HYPERTENSION (11) Elevated troponin Code(s): R74.8 - ABNORMAL LEVELS OF OTHER SERUM ENZYMES (12) Hypertensive heart disease Code(s): I11.9 - HYPERTENSIVE HEART DISEASE WITHOUT HEART FAILURE Qualifiers: Heart failure presence: with heart failure Heart failure chronicity: acute on chronic (13) NSVT (nonsustained ventricular tachycardia) Code(s): I47.2 - VENTRICULAR TACHYCARDIA (14) Tobacco abuse Code(s): Z72.0 - TOBACCO USE
[2019-05-30] MEDS ORDERED: LEVALBUTEROL HCL 0.31 MG/3 ML VIAL.NEB IH PRN (11:54)
[2019-05-30 14:53] VITALS: BP 150/96; PULSE 58; TEMP 98.3
--- NOTE | 2019-05-30 15:13 | CONS ---
PULMONARY CONSULTATION DATE OF CONSULTATION: 05/30/2019 REFERRING PHYSICIAN: NICOLA Pinedo HISTORY OF PRESENT ILLNESS: Patient is a 58-year-old, male known to me in previous hospitalization with a past medical history of chronic diastolic heart failure, aortic aneurysm with mild dilatation, obstructive sleep apnea, hypertension, nonobstructive coronary artery disease, multiple catheterizations in the past at tertiary care centers, history of nephrolithiasis, status post lithotripsy, tobacco abuse, normally smokes about 6 per day, anemia, chronic kidney disease, admitted to [facility] on May 25 with complaint of acute respiratory distress, chest pressure nonradiating. Patient apparently, a few days prior to admission, had increasing shortness of breath; at which time, he called EMS. He was brought to the emergency room. In the ER, he was noted to be tachycardic, hypertensive, and short of breath. . Patient was placed on BiPAP and transferred up to the medical floor for further management. In the ER, he was also noted to be hypertensive and placed on nitroglycerin, due to hypertensive emergency with improvement in his blood pressure, and he was administered Lasix IV. Patient was subsequently transferred for further management. Of note is the patient was most recently hospitalized in January 2019, secondary to acute respiratory failure, and intubated in the field. Patient states he is noncompliant because of the side effects of medications. He is also still smoking approximately 6 a day. He denies any fevers, weight loss or night sweats. Denies any hemoptysis. PAST MEDICAL HISTORY: Again, includes chronic thoracic aortic aneurysm, chronic diastolic heart failure, chronic kidney disease, obstructive sleep apnea, hypertension, nonobstructive coronary artery disease, history of nephrolithiasis, status post lithotripsy, and also patient currently has a loop recorder. CURRENT MEDICATIONS: Include Tylenol, Accupril, heparin, Cymbalta, Remeron, Ambien, NicoDerm patch, Toprol, Feosol, Aldactone, Ecotrin, folic acid. PHYSICAL EXAMINATION: General: Patient is a well-developed, well-nourished male, awake, alert, and currently in no acute distress. Vital Signs: He is currently afebrile, heart rate is 52, blood pressure 117/78, respiratory rate is 18, O2 saturation 95% on room air. HEENT: Exam is normocephalic, atraumatic. Neck: Supple. Heart: Regular S1 and S2. Chest: Clear. Abdomen: Soft. Bowel sounds are positive. Extremities: No cyanosis, edema. LABORATORIES: WBC is 4.3, hemoglobin 10, hematocrit 31.2, with a platelet count of 193,000. INR is 1.11. Blood gas: PH of 7.37, PCO2 of 31, a PO2 of 250, bicarbonate of 18, and saturation 99.7; that on BiPAP, 60% oxygen, rate of 10, and an IPAP of 16, and EPAP of 6. BUN 31, creatinine 1.5. Troponins were noted to be initial 0.51 with the most recent 0.44. Chest x-ray: Normal cardiac silhouette, prominent markings, mild congestion, and loop recorder device noted. IMPRESSION: 1. Acute hypoxemic respiratory failure, secondary to acute on chronic diastolic heart failure. 2. Positive troponins. 3. Nonobstructive coronary artery disease. 4. Hypertensive cardiovascular disease. 5. History of nonsustained ventricular tachycardia. 6. History of obstructive sleep apnea syndrome. 7. Anemia. 8. Acute on chronic kidney disease. 9. Smoker of tobacco. PLAN: Diuretics, supplemental O2, inhaled bronchodilators as needed. Daily weights. Monitor electrolytes, renal function, hemoglobin and hematocrit. Trend troponins. Smoking cessation counseled. Also, stress compliance with medications. MOHIT MAE M.D. [id number]
--- NOTE | 2019-05-30 15:19 | DS ---
Physical Exam: SUBJECTIVE: Patient seen and examined at the bedside. Wants to go home and agrees to follow up with Dr. Etienne and Dr. Shipley () as an outpatient. HOSPITAL COURSE Patient is a 58 year old male with a significant past medical history of diastolic CHF, aortic aneurysm (w/mild dilation), FABRICIO, HTN, nonobstructive CAD ( multiple caths done at other tertiary care centers), past hx lithotripsy for left nephrolithiasis, active smoker (6 cigarettes per day and marijuana) s/p loop recorder 2 months ago. He presents to [facility] ED for acute respiratory failure and chest pressure, non radiating. Patient reported depression leading to periods of noncompliance to medications. Pt reports feeling unwell for several days with progressively worsening SOB that acutely worsened on date of admission. He reports mild chest pain. Has not noticed any significant pitting edema. Pt was placed on CPAP by EMS and given 2 SL nitros, which he states helped a little. In the ED he was hypertensive to 160/120. Patient placed on BIPAP with nebulizers, started on Nitro gtt initiated at 200mcg/min in the ED. Lasix was also administered. He remained hypertensive and his medications have been adjusted and reduced pill burden and promote compliance. He will be discharged home with cardiology follow up as well as follow up with pulmonary. He was recommended to follow up with Dr. Shipley at [facility]. Vital Signs Period Temp Pulse Resp BP Sys/Rosado Pulse Ox Last 24 Hr 97.5 F-98.3 F 52-68 16-20 117-150/78-109 95-100 PHYSICAL EXAM GENERAL: Awake, alert, and fully oriented, in no acute distress. HEAD: Normal with no signs of trauma. EYES: Pupils equal, round and reactive to light, extraocular movements intact, sclera anicteric, conjunctiva clear. No lid lag. EARS, NOSE, THROAT: Ears normal, nares patent, oropharynx clear without exudates. Moist mucous membranes. NECK: Normal range of motion, supple without lymphadenopathy, JVD, or masses. LUNGS: Breath sounds equal, diminished bilaterally HEART: Regular rate and rhythm ABDOMEN: Soft, nontender, not distended, normoactive bowel sounds, no guarding, no rebound, no masses. No hepatomegaly or splenomegaly. MUSCULOSKELETAL: Normal range of motion at all joints. No bony deformities or tenderness. No CVA tenderness. UPPER EXTREMITIES: No peripheral edema. LOWER EXTREMITIES: No peripheral edema. NEUROLOGICAL: Normal speech. PSYCHIATRIC: Cooperative. Good eye contact. Appropriate mood and affect. SKIN: Warm, dry, normal turgor, no rashes or lesions noted, normal capillary refill. LABS Laboratory Results - last 24 hr 05/30/19 05/30/19 07:05 07:05 WBC 4.3 RBC 3.70 L Hgb 10.0 L Hct 31.2 L MCV 84.4 MCH 27.0 MCHC 32.0 RDW 15.3 Plt Count 193 MPV 8.0 Absolute Neuts (auto) 1.9 Neutrophils % 44.1 Lymphocytes % 39.5 Monocytes % 11.7 H Eosinophils % 3.6 Basophils % 1.1 Nucleated RBC % 0 Sodium 140 Potassium 4.1 Chloride 108 H Carbon Dioxide 24 Anion Gap 7 L BUN 31.9 H Creatinine 1.5 H Est GFR (CKD-EPI)AfAm 58.22 Est GFR (CKD-EPI)NonAf 50.23 Random Glucose 91 Calcium 8.6 Magnesium 2.2 Total Bilirubin 0.5 AST 11 L ALT 23 Alkaline Phosphatase 75 Total Protein 6.5 Albumin 3.1 L HOSPITAL COURSE: Date of Admission:05/25/19 Date of Discharge: 05/30/19 Minutes to complete discharge: 45 Discharge Summary Problems reviewed: Yes Reason For Visit: ELEVATED TROPONIN I LEVEL Current Active Problems Acute on chronic systolic and diastolic heart failure, NYHA class 2 (Acute) Anemia (Acute) Depression (Acute) HTN (hypertension) (Acute) Non compliance w medication regimen (Acute) Noncompliance w/medication treatment due to intermit use of medication (Acute) Nonischemic cardiomyopathy (Acute) Respiratory failure (Acute) Sleep apnea (Acute) Sleep apnea (Acute) Status post placement of implantable loop recorder (Acute) Troponin I above reference range (Acute) Condition: Improved - Instructions Diet, Activity, Other Instructions: Mr. Lopez. You were admitted for shortness of breath and were found to have a very high blood pressure. We will be sending you home with a new medication list as follows for your hypertension (high blood pressure). NEW BLOOD PRESSURE MEDICATION LIST 1. Quinapril HCL (Accupril) - 10mg ONCE PER DAY FOR YOUR BLOOD PRESSURE CONTROL - TAKE AT 8AM 2. Aldactone 25mg - ONCE PER DAY FOR YOUR BLOOD PRESSURE CONTROL - 8AM 3. Toprol 50mg - ONCE PER DAY FOR YOUR BLOOD PRESSURE CONTROL - 8AM STOP TAKING THE LASIX, COREQ AND AMLODOPINE (NORVASC). THE ONLY BLOOD PRESSURE MEDICATIONS THAT YOU WILL BE TAKING ARE THE THREE LISTED ABOVE. TAKE WITH FOOD. NEW MEDICATION TO CONTROL ASTHMA Xopenex 0.35mg IH for asthma control PLEASE FOLLOW THE MEDICATION LIST ON YOUR DISCHARGE INSTRUCTIONS. THIS IS YOUR NEW MEDICATION LIST AND IF THE MEDICATION IS NOT ON THIS LIST, DO NOT TAKE AT HOME FOLLOW UPS: As discussed with Dr. Etienne, please follow up with Dr. Shipley, he is an wrecking crane engine operator at [employer] [facility] [phone]. call his office for an appointment. You will need your loop recorder evaluated. Thank you for allowing us to care for you. Questions? Please call me Yisel Acevedo Cisneros [employer] [phone] [facility] Referrals: Vasyl Mason MD [Staff Physician] - Sebastian Guillen MD [Primary Care Provider] - Jonnathan Mills MD [Staff Physician] - Disposition: HOME - Home Medications Comprehensive Discharge Medication List: Ambulatory Orders Duloxetine HCl 60 mg PO DAILY 05/25/19 Ferrous Sulfate 325 mg PO TID 05/25/19 Folic Acid 1 mg PO DAILY 05/25/19 Mirtazapine 15 mg PO DAILY 05/25/19 Vitamin B Complex [B Complex] 1 each PO DAILY 05/25/19 Zolpidem Tartrate [Ambien] 10 mg PO HS 05/25/19 Aspirin Coated [Ecotrin -] 81 mg PO DAILY tablet.ec 05/30/19 Levalbuterol HCl [Xopenex] 0.31 mg IH Q8H PRN #2 vial.neb 05/30/19 Metoprolol Succinate [Toprol XL -] 50 mg PO DAILY #90 tab.sr.24h 05/30/19 Nicotine Patch [Nicoderm Patch -] 21 mg TD DAILY patch 05/30/19 Quinapril HCl [Accupril -] 10 mg PO DAILY #90 tablet 05/30/19 Spironolactone [Aldactone -] 25 mg PO DAILY #90 tablet 05/30/19 Problem List - Problems (1) Acute on chronic systolic and diastolic heart failure, NYHA class 2 Assessment/Plan: Pt has improved symptomatically. F/u CXR. Hx nonischemic cardiomyopathy; NSVT. F/u BUn/Cr, electrolytes, daily weight, Is and Os; BP and HR. Pt has been noncompliant in the past with medications, meds changed to reduce pill burden: on metoprolol er, sprionolactone daily, quinapirl Code(s): I50.43 - ACUTE ON CHRONIC COMBINED SYSTOLIC AND DIASTOLIC HRT FAIL (2) Hypertensive emergency Assessment/Plan: better controlled on quinopril and toprol Code(s): I16.1 - HYPERTENSIVE EMERGENCY (3) Troponin I above reference range Assessment/Plan: had chest pain on presentation and placed on nitro drip. chest pain resolved and off nitro drip Trop elevated, consistent with prior visits, with no new EKG changes cardiology following Code(s): R74.8 - ABNORMAL LEVELS OF OTHER SERUM ENZYMES (4) Acute on chronic renal failure Assessment/Plan: monitor daily on diuresis Code(s): N17.9 - ACUTE KIDNEY FAILURE, UNSPECIFIED; N18.9 - CHRONIC KIDNEY DISEASE, UNSPECIFIED (5) Non compliance w medication regimen Assessment/Plan: stress importance of follow ups, med compliance and avoidance of frequent hospitalizations Code(s): Z91.14 - PATIENT'S OTHER NONCOMPLIANCE WITH MEDICATION REGIMEN (6) Acute respiratory failure with hypoxia and hypercapnia Code(s): J96.01 - ACUTE RESPIRATORY FAILURE WITH HYPOXIA; J96.02 - ACUTE RESPIRATORY FAILURE WITH HYPERCAPNIA (7) Tobacco abuse Assessment/Plan: nicotine patch Code(s): Z72.0 - TOBACCO USE (8) Acute pulmonary edema Assessment/Plan: Code(s): J81.0 - ACUTE PULMONARY EDEMA (9) Sleep apnea Assessment/Plan: pulmonary consulted may need outpatient f/u for sleep study Code(s): G47.30 - SLEEP APNEA, UNSPECIFIED This patient is new to me today: No Emergency Visit: Yes ED Registration Date: 05/25/19 Care time: The patient presented to the Emergency Department on the above date and was hospitalized for further evaluation of their emergent condition. Critical Care patient: No - Discharge Referral Referred to [facility] No
== END 2019-05-30 16:37 | disposition home or self-care (01) | DRG 194 ==
LOC: JER 09:54 → JERBED 10:58 → J4W 14:06
PROVIDERS: ADMIT Internal Medicine; ATTEND Nurse Practitioner Family
DX: I13.0 Hypertensive heart and chronic kidney disease with heart failure and stage 1 through stage 4 chronic kidney disease, or unspecified chronic kidney disease (principal); I16.1 Hypertensive emergency; J96.01 Acute respiratory failure with hypoxia; J96.02 Acute respiratory failure with hypercapnia; E78.5 Hyperlipidemia, unspecified; N17.9 Acute kidney failure, unspecified; N40.0 Benign prostatic hyperplasia without lower urinary tract symptoms; G47.33 Obstructive sleep apnea (adult) (pediatric); R74.8 Abnormal levels of other serum enzymes; J81.0 Acute pulmonary edema; I24.8 Other forms of acute ischemic heart disease; D64.9 Anemia, unspecified; I25.119 Atherosclerotic heart disease of native coronary artery with unspecified angina pectoris; I48.0 Paroxysmal atrial fibrillation; I47.2 Ventricular tachycardia; F41.8 Other specified anxiety disorders; I42.8 Other cardiomyopathies; F17.210 Nicotine dependence, cigarettes, uncomplicated; I71.9 Aortic aneurysm of unspecified site, without rupture; N18.3 Chronic kidney disease, stage 3 (moderate); I50.33 Acute on chronic diastolic (congestive) heart failure; Z95.0 Presence of cardiac pacemaker; Z91.14 Patient's other noncompliance with medication regimen; Z95.5 Presence of coronary angioplasty implant and graft; Z87.442 Personal history of urinary calculi
CPT/HCPCS: 36415; 36600; 71045-TC-FY; 76604; 80048; 80053; 81003; 82375; 82550; 82803; 83050; 83735; 83880; 84484; 85025; 85027; 85610; 85730; 93005; 93010; 93306-TC; 93308; 94660; 99285-25; J1644

== ENCOUNTER 2019-12-13 07:57 | Inpatient (IN) | payer OTHER ==
[2019-12-13] MEDS ORDERED: NITROGLYCERIN 25MG/D5W 250ML 25 MG/250 ML ML IVPB ONE ×3 (08:01→18:42)
[2019-12-13] MEDS ORDERED: NITROGLYCERIN 25MG/D5W 250ML 25 MG/250 ML ML IVPB SCH (08:15)
[2019-12-13] MEDS ORDERED: NITROGLYCERIN 2% OINTMENT - 1GM PACKET TD ONE (08:17)
[2019-12-13] MEDS ORDERED: FUROSEMIDE 40 MG/4 ML INJECTABLE VIAL IVPUSH ONE (08:23)
--- NOTE | 2019-12-13 08:36 | PDOC ---
History of Present Illness - General Chief Complaint: Shortness of Breath Stated Complaint: DIFFICULTY BREATHING Time Seen by Provider: 12/13/19 08:08 History Source: Patient Exam Limitations: Clinical Condition - History of Present Illness Initial Comments: Chay is a 59 yo M who presents to the [facility] er BIBEMS in severe respiratory distress on CPAP saturating in the high 80's. He was profusely diaphoretic upon entry into the ER and his BP was 220/110. The patient could not initially provide much history other than saying he cannot breathe. Upon listening to his bilateral lungs which had gurgles and crackles bilaterally it became clear the patient was likely in flash pulmonary edema. He was immediately given nitro paste and transferred onto the [facility] in room 10. Respiratory was called upon entry into the ER to place the patient on a Bipap machine. After he was on the bed a rainbow set of labs were drawn including an ABG by respiratory and the patient was started on a nitroglycerin drip at 150 mcg. Ten minutes later the drip was downtitrated to 80 mcg with a resultant BP of 160/110. Patient now resting more comfortably in bed. HPI: Patient states he went to bed last night feeling well, woke up this morning at 5am and all of a sudden felt terrible. When he went to the bathroom he could not catch his breath. He felt like his chest was about to explode. Immediately called the ambulance for assistance. Denies chest pain at present time after ED treatments. PMH: CHF(frequent exacerbations, intubated in the past), CAD (s/p stent x1, on Plavix), arrhythmia? (with loop recorder), HTN, HLD, and anemia Allergies: adhesives PCP: Dr. Patricia Cards: Dr. Rooney Social: Pt smokes cigarettes daily. Pt denies any alcohol or drug use. Surgical: loop recorder, cardiac stent Past History - Medical History Allergies/Adverse Reactions: Allergies Allergy/AdvReac Type Severity Reaction Status Date / Time adhesive tape Allergy Verified 12/13/19 07:59 Anemia: No Asthma: No Cancer: No Cardiac Disorders: Yes (A.FIB FROM AORTIC ANEURYSM. stent) CVA: No COPD: No CHF: Yes Dementia: No Diabetes: No GI Disorders: Yes (COLON ADENOMA, NAUSEA) Disorders: Yes (BPH) HTN: Yes Hypercholesterolemia: No Kidney Stones: Yes Liver Disease: No Seizures: No Thyroid Disease: No - Surgical History Abdominal Surgery: No Appendectomy: No Cardiac Surgery: Yes (Pacemaker) Cholecystectomy: No GI Surgery: (KIDNEY SX) Lung Surgery: No Neurologic Surgery: No Orthopedic Surgery: No - Psycho-Social/Smoking History Smoking Status: Yes Smoking History: Unknown if ever smoked Have you smoked in the past 12 months: No Number of Cigarettes Smoked Daily: 6 'Breaking Loose' booklet given: 05/25/19 - Substance Abuse Hx (Audit-C & DAST Scrn) In the last yr the pt used illegal drug/Rx for NonMed reason: No Score: Yes response is considered Positive: 0 Screen Result (Positive result requires Nsg. DAST-10): Negative Review of Systems - Review of Systems Able to Perform ROS?: No (Respiratory distress) *Physical Exam - Vital Signs Last Vital Signs Temp Pulse Resp BP Pulse Ox 102 H 18 163/112 H 100 12/13/19 08:15 12/13/19 08:15 12/13/19 08:15 12/13/19 08:30 - Physical Exam GENERAL: Appears in extremis. Severe distress. profusely diaphoretic. HEENT: Normocephalic, atraumatic. PERRL, EOM intact. CARDIOVASCULAR: Tachycardic rate. Normal S1, S2. PULMONARY: Bilateral gurgles and crackles midway up both lung arboleda. No wheezing or rhonchi. ABDOMEN: Soft, non-distended, non-tender. EXTREMITIES: Normal ROM in all four extremities. No gross deformities. SKIN: Diaphoretic, warm. No rash NEUROLOGICAL: No focal neurological deficits. ED Treatment Course - LABORATORY CBC & Chemistry Diagram: 12/13/19 08:12 12/13/19 10:15 - RADIOLOGY Radiology Studies Ordered: Category Date Time Status CHEST X-RAY PORTABLE* [RAD] Stat Radiology 12/13/19 08:10 Taken - Medications Given in the ED: ED Medications Discontinued Medications Generic Name Dose Route Start Last Admin Trade Name Freq PRN Reason Stop Dose Admin Nitroglycerin 1 inch 12/13/19 08:17 12/13/19 08:22 Nitro-Bid 2% Paste - TD 12/13/19 08:18 1 inch ONCE ONE Administration Medical Decision Making - Medical Decision Making Chay is a 59 yo M who presents to the [facility] er BIBEMS in severe respiratory distress on CPAP saturating in the high 80's. He was profusely diaphoretic upon entry into the ER and his BP was 220/110. The patient could not initially provide much history other than saying he cannot breathe. Upon listening to his bilateral lungs which had gurgles and crackles bilaterally it became clear the patient was likely in flash pulmonary edema. He was immediately given nitro paste and transferred onto the [facility] in room 10. Respiratory was called upon entry into the ER to place the patient on a Bipap machine. After he was on the bed a rainbow set of labs were drawn including an ABG by respiratory and the patient was started on a nitroglycerin drip at 150 mcg. Ten minutes later the drip was downtitrated to 80 mcg with a resultant BP of 160/110. Patient now resting more comfortably in bed. Vital Signs Temp Pulse Resp BP Pulse Ox 102 H 18 163/112 H 100 12/13/19 08:15 12/13/19 08:15 12/13/19 08:15 12/13/19 08:30 DDx IBNLT: Heart failure, flash pulmonary edema, COPD, ACS, electrolyte/metabolic disturbance Plan: Labs, EKG, CXR, Bipap, Nitro, furosemide, Admission for heart failure Per : Doronm - [phone]. Had this before. In january of last year. Heart condition and kidney issues. Also has HTN and alot of muscle in the heart. Pacemaker. Meds per : Water pill, lisinopril, HCTZ. CBC,CMP WBC 5.5 K/mm3 (4.0-10.0) 12/13/19 08:12 RBC 3.64 M/mm3 (4.00-5.60) L 12/13/19 08:12 Hgb 9.7 GM/dL (11.7-16.9) L 12/13/19 08:12 Hct 31.8 % (35.4-49) L 12/13/19 08:12 MCV 87.2 fl (80-96) 12/13/19 08:12 MCH 26.8 pg (25.7-33.7) 12/13/19 08:12 MCHC 30.7 g/dl (32.0-35.9) L 12/13/19 08:12 RDW 17.4 % (11.9-15.9) H 12/13/19 08:12 Plt Count 169 K/MM3 (134-434) 12/13/19 08:12 MPV 8.2 fl (7.5-11.1) 12/13/19 08:12 Absolute Neuts (auto) 2.8 K/mm3 (1.5-8.0) 12/13/19 08:12 Neutrophils % 50.4 % (42.8-82.8) 12/13/19 08:12 Lymphocytes % 37.4 % (8-40) 12/13/19 08:12 Monocytes % 8.2 % (3.8-10.2) 12/13/19 08:12 Eosinophils % 3.3 % (0-4.5) 12/13/19 08:12 Basophils % 0.7 % (0-2.0) 12/13/19 08:12 Nucleated RBC % 0 % (0-0) 12/13/19 08:12 Sodium 141 mmol/L (136-145) 12/13/19 08:12 Potassium 4.1 mmol/L (3.5-5.1) 12/13/19 08:12 Chloride 109 mmol/L (98-107) H 12/13/19 08:12 Carbon Dioxide 20 mmol/L (21-32) L 12/13/19 08:12 Anion Gap 11 MMOL/L (8-16) 12/13/19 08:12 BUN 27.2 mg/dL (7-18) H 12/13/19 08:12 Creatinine 1.8 mg/dL (0.55-1.3) H 12/13/19 08:12 Est GFR (CKD-EPI)AfAm 46.38 12/13/19 08:12 Est GFR (CKD-EPI)NonAf 40.02 12/13/19 08:12 Random Glucose 212 mg/dL (74-106) H 12/13/19 08:12 Lactic Acid 5.0 mmol/L (0.4-2.0) H* 12/13/19 08:12 Calcium 8.2 mg/dL (8.5-10.1) L 12/13/19 08:12 Magnesium 2.2 mg/dL (1.8-2.4) 12/13/19 08:12 Total Bilirubin 1.3 mg/dL (0.2-1) H 12/13/19 08:12 AST 141 U/L (15-37) H 12/13/19 08:12 ALT 84 U/L (13-61) H 12/13/19 08:12 Alkaline Phosphatase 139 U/L (45-117) H 12/13/19 08:12 Creatine Kinase 157 U/L (26-308) 12/13/19 08:12 Creatine Kinase Index 0.8 % (0.0-5.0) 12/13/19 08:12 CK-MB (CK-2) 1.4 ng/mL (0.5-3.6) 12/13/19 08:12 Troponin I 0.17 ng/ml (0.00-0.05) H 12/13/19 08:12 B-Natriuretic Peptide 3467.9 pg/ml (5-125) H 12/13/19 08:12 Total Protein 7.6 g/dl (6.4-8.2) 12/13/19 08:12 Albumin 3.3 g/dl (3.4-5.0) L 12/13/19 08:12 Dispo: Telemetry for heart failure Discharge - Discharge Information Problems reviewed: Yes Clinical Impression/Diagnosis: Flash pulmonary edema Heart failure Qualifiers: Heart failure type: unspecified Heart failure chronicity: unspecified Qualified Code(s): I50.9 - Heart failure, unspecified Condition: Stable - Admission Yes - Follow up/Referral - Patient Discharge Instructions - Post Discharge Activity
[2019-12-13] MEDS ORDERED: FUROSEMIDE 40 MG/4 ML INJECTABLE VIAL ONE (08:38)
[2019-12-13 08:40] LABS: BASO % 0.7 % (0-2.0); EOS % 3.3 % (0-4.5); HEMATOCRIT 31.8 % (35.4-49); HEMOGLOBIN 9.7 GM/dL (11.7-16.9); LYMPH % 37.4 % (8-40); MCH 26.8 pg (25.7-33.7); MCHC 30.7 g/dl (32.0-35.9); MEAN CELL VOLUME 87.2 fl (80-96); MEAN PLT VOLUME 8.2 fl (7.5-11.1); MONO % 8.2 % (3.8-10.2); NEUT % 50.4 % (42.8-82.8); PLATELET COUNT 169 K/MM3 (134-434); RBC 3.64 M/mm3 (4.00-5.60); RDW 17.4 % (11.9-15.9); WHITE BLOOD COUNT 5.5 K/mm3 (4.0-10.0)
[2019-12-13 08:47] LABS: INR 1.13 (0.83-1.09); PROTHROMBIN TIME (PATIENT) 13.3 SEC (9.7-13.0)
[2019-12-13 08:50] LABS: ACTIVATED PTT 22.3 SECONDS (25.2-36.5)
[2019-12-13] MEDS: NITROGLYCERIN 25MG/D5W 250ML 25 MG/250 ML ML IVPB SCH (08:52)
--- NOTE | 2019-12-13 08:52 | PDOC ---
Attending Attestation - Resident Resident Name: Yazan Mason - ED Attending Attestation I have performed the following: I have examined & evaluated the patient, The case was reviewed & discussed with the resident, I agree w/resident's findings & plan, Exceptions are as noted - HPI HPI: 12/13/19 08:40 Agree with resident HPI - Physicial Exam PE: 12/13/19 08:41 GENERAL: Awake, alert, diaphoretic in respiratory distress HEAD: No signs of trauma EYES: PERRLA, EOMI, sclera anicteric, conjunctiva clear ENT: Oropharynx clear without exudates. Moist mucosa NECK: Normal ROM, supple, no lymphadenopathy, +JVD LUNGS: Diffuse rales b/l, +tachypnea HEART: Regular rate and rhythm, normal S1 and S2, no murmurs, rubs or gallops ABDOMEN: Soft, nontender, normoactive bowel sounds. No guarding, no rebound. No masses EXTREMITIES: Normal range of motion, +b/l pitting edema. No clubbing or cyanosis. No cords, erythema, or tenderness NEUROLOGICAL: Normal speech, cranial nerves intact, moving all extremities b/l - Critical Care Time Total Critical Care Time: 30 Critical Care Statement: The care of this patient involved high complexity dec ision making to prevent further life threatening deterioration of the patient's condition and/or to evaluate & treat vital organ system(s) failure or risk of failure. - Medical Decision Making 12/13/19 08:54 59yo M with MMP including CHF presents to the ED in respiratory distress on CPAP. Pt hypertensive, hypoxic, tachypneic. Diffuse rales on exam, most likely APE Pt states administers most medications, he reports he is on lasix but does not know the dose Pt switched to bipap, nitro gtt started at 150mcg Significant clinical improvement, slowly titrating nitro gtt and bipap down EKG with lateral TWI, prolonged QT compared to EKG from 05/2019, prolonged QT is new Anticipate admission ICU vs tele Discharge - Discharge Information Problems reviewed: Yes Clinical Impression/Diagnosis: Flash pulmonary edema Heart failure Qualifiers: Heart failure type: unspecified Heart failure chronicity: unspecified Qualified Code(s): I50.9 - Heart failure, unspecified Condition: Stable - Follow up/Referral - Patient Discharge Instructions - Post Discharge Activity
[2019-12-13] MEDS ORDERED: NITROGLYCERIN 50MG/D5W 250ML 50 MG/250 ML ML IVPB SCH (09:00)
[2019-12-13 09:03] LABS: ARTERIAL BLD GAS O2 SATURATION 99.8 mmHg (95-98); ARTERIAL BLOOD GAS BASE EXCESS -8.6 mmol/L (-2-2); ARTERIAL BLOOD GAS PO2 389.9 mmHg (80-100); ARTERIAL BLOOD GAS pH 7.253 (7.350-7.450)
[2019-12-13 09:12] LABS: VENT MODE S/T; VENT RATE 24
[2019-12-13 09:15] LABS: ALBUMIN 3.3 g/dl (3.4-5.0); BILIRUBIN,TOTAL 1.3 mg/dL (0.2-1); BLOOD UREA NITROGEN 27.2 mg/dL (7-18); CALCIUM 8.2 mg/dL (8.5-10.1); CREATININE 1.8 mg/dL (0.55-1.3); MAGNESIUM 2.2 mg/dL (1.8-2.4); N-TERMINAL BNP 3467.9 pg/ml (5-125); POTASSIUM 4.1 mmol/L (3.5-5.1); TOT PROT 7.6 g/dl (6.4-8.2)
--- NOTE | 2019-12-13 11:03 | CONSULT ---
Consultation: REQUESTING PROVIDER: Yani Brooks MD, and Yazan Mason MD. CONSULT REQUEST: We have been asked to medically evaluate this patient for respiratory failure and pulmonary edema HPI: 59YOM with f/o CHF with frequent exacerbations (should be on Lasix but ran out last month) and CAD s/p stent (on Plavix), who was BIBEMS after he called 911 because he had awakened this morning to walk to the bathroom, became extremely SOB and felt like my chest was going to explode. In the ED he had many crackles and was in severe respiratory distress. He was started on NTG paste + drip (currently at 80 mcg) and BiPAP. Labs for notable for elevated troponin and BUN/Cr/GFR, however these have been elevated for the patient in his past [facility] records. PCP: Dr. Patricia Cardiology: Dr. Rooney PMH: CHF, CAD, HTN, HLD, anemia SURG: loop recorder placement, cardiac stent SOC: Long-time cigarette smoker, no drugs/EtOH ROS GEN: generalized weakness, no fever, chills, or malaise HEENT: no ear pain, congestion, sore throat, vision change, or eye pain CV: chest pain (resolved), edema, no palpitations, lightheadedness, or syncope RESP: SOB, wheezing, cough, orthopnea GI: no abdominal pain, nausea, vomiting, diarrhea, constipation, or rectal bleed : no dysuria, hematuria, or discharge MSK: no muscle pain, no joint swelling or pain NEURO: no headache, vertigo, numbness, tingling, or focal weakness PSYCH: no SI, HI, or behavior change SKIN: no jaundice, rash, lesions, or unexplained bruises ROS otherwise negative except as noted in HPI LINES: PIV x2 LFA and LAC TUBES: None DRAINS: None EXAM: GENERAL: pleasant adult male laying on left side wearing BiPAP in no distress, nontoxic-appearing, A/Ox4, answers questions appropriately HEENT: PERRLA, EOMI, moist mucous membranes NECK/BACK: no midline ttp, no spinal stepoff or deformity, no hematoma, full ROM, neck supple CARDIOVASCULAR: regular rate/rhythm, no MGR, strong peripheral pulses, capillary refill <2 seconds, extremities wwp, no edema LUNGS/RESPIRATORY: no respiratory distress, not tachypneic, speaking full sentences, b/l rales GI/ABDOMEN: symmetric [id number]-[id number], normoactive BS, soft, no ttp, no midline pulsatile masses : no CVA tenderness EXTREMITIES: no muscle atrophy, no acute deformity SKIN: warm and dry, no pallor, no jaundice, no rash, no bruising, no skin breakdown, no cuts, no lesions NEUROLOGICAL: GCS 15, CN II-XII grossly intact, 5/5 strength proximally and distally, no facial droop Laboratory Tests 12/13/19 12/13/19 12/13/19 08:05 08:12 08:12 WBC 5.5 RBC 3.64 L Hgb 9.7 L Hct 31.8 L MCV 87.2 MCH 26.8 MCHC 30.7 L RDW 17.4 H Plt Count 169 MPV 8.2 Absolute Neuts (auto) 2.8 Neutrophils % 50.4 Lymphocytes % 37.4 Monocytes % 8.2 Eosinophils % 3.3 Basophils % 0.7 Nucleated RBC % 0 PT with INR 13.30 H INR 1.13 H PTT (Actin FS) 22.3 L Anticoagulation Therapy No Result Required. Puncture Site Right radial Patient Temperature No Result Required. ABG pH 7.253 L ABG pCO2 41.90 ABG pO2 389.9 H ABG HCO3 18.1 L ABG O2 Sat (Measured) 99.8 H ABG O2 Content No Result Required. ABG Base Excess -8.6 L Jasvir Test No Result Required. Patient On Oxygen Yes O2 Delivery Device Bipap Oxygen Flow Rate 100% Vent Mode S/t Vent Rate 24 Mechanical Rate Bipap PEEP No Result Required. Pressure Support Vent 24/10 Sodium Potassium Chloride Carbon Dioxide Anion Gap BUN Creatinine Est GFR (CKD-EPI)AfAm Est GFR (CKD-EPI)NonAf Random Glucose Lactic Acid Calcium Magnesium Total Bilirubin AST ALT Alkaline Phosphatase Creatine Kinase Creatine Kinase Index CK-MB (CK-2) Troponin I B-Natriuretic Peptide Total Protein Albumin 12/13/19 12/13/19 12/13/19 08:12 08:12 10:15 WBC RBC Hgb Hct MCV MCH MCHC RDW Plt Count MPV Absolute Neuts (auto) Neutrophils % Lymphocytes % Monocytes % Eosinophils % Basophils % Nucleated RBC % PT with INR INR PTT (Actin FS) Anticoagulation Therapy Puncture Site Patient Temperature ABG pH ABG pCO2 ABG pO2 ABG HCO3 ABG O2 Sat (Measured) ABG O2 Content ABG Base Excess Jasvir Test Patient On Oxygen O2 Delivery Device Oxygen Flow Rate Vent Mode Vent Rate Mechanical Rate PEEP Pressure Support Vent Sodium 141 145 Potassium 4.1 3.4 L Chloride 109 H 114 H Carbon Dioxide 20 L 23 Anion Gap 11 8 BUN 27.2 H 24.2 H Creatinine 1.8 H 1.4 H Est GFR (CKD-EPI)AfAm 46.38 62.84 Est GFR (CKD-EPI)NonAf 40.02 54.22 Random Glucose 212 H 122 H Lactic Acid 5.0 H* Calcium 8.2 L 7.2 L Magnesium 2.2 2.0 Total Bilirubin 1.3 H 0.6 AST 141 H 95 H ALT 84 H 72 H Alkaline Phosphatase 139 H 111 Creatine Kinase 157 Creatine Kinase Index 0.8 CK-MB (CK-2) 1.4 Troponin I 0.17 H 0.14 H B-Natriuretic Peptide 3467.9 H Total Protein 7.6 6.0 L Albumin 3.3 L 2.8 L RAD/CHEST X-RAY PORTABLE* HISTORY PROVIDED: Chest pain. A single frontal portable projection of the chest at 8:30 AM is submitted. The heart size is enlarged. There is a dual-chamber left-sided pacemaker present. Patchy bilateral consolidation/congestion is identified, most marked within the lower lobes. No definite pleural effusions are noted. IMPRESSION: Bilateral consolidation/congestion Current BiPAP settings: S/T 12/6, rate 20, FiO2 60% ASSESSMENT / PLAN: 59YOM with f/o CHF with frequent exacerbations (should be on Lasix but ran out last month) and CAD s/p stent (on Plavix), presented with respiratory failure likely 2/2 CHF, initially was close to needing intubation for airway protection but was very responsive to BiPAP/Lasix/NTG paste+ggt, now much more comfortable. The patient does seem to be doing much better than on arrival to the ED, and the ED treatment seems to have been very effective and commendable. The ICU team believes the patient is appropriate for telemetry at this time. The following are the recommendations for consideration from the ICU team. CV: troponin elevated, h/o CAD s/p stent on Plavix -Trend troponin/EKG -Cardiology consult -Closely monitor BP RESP: Pulmonary edema likely 2/2 CHF exacerbation -Continue Lasix, NTG ggt, BiPAP -Follow CXR, ABG GI: No concerns at this time -NPO until tolerating off BiPAP RENAL/: CKD -Seems at baseline -May consider Renal consult if bump in BUN/Cr with Lasix FEN: -HOLD IVF given pulmonary edema -Monitor chemistries -Replete K, Mg, Phos as needed Prophylaxis: -DVT: Consider SCDs and HSQ -GI: NPO until able to tolerate off BiPAP Code Status/Family Conversation: Full Code Dispo: Telemetry. Thank you for this consultative opportunity. Please let the ICU team know if any further questions, concerns, or changes in the plan or patient status. Case discussed with ICU attending Tony Schulte MD. Antonietta Archuleta MD EM Resident PGY3 Problem List - Problems (1) Acute CHF (congestive heart failure) Code(s): I50.9 - HEART FAILURE, UNSPECIFIED (2) Acute on chronic renal failure Code(s): N17.9 - ACUTE KIDNEY FAILURE, UNSPECIFIED; N18.9 - CHRONIC KIDNEY DISEASE, UNSPECIFIED (3) Anemia Code(s): D64.9 - ANEMIA, UNSPECIFIED (4) Elevated troponin Code(s): R74.8 - ABNORMAL LEVELS OF OTHER SERUM ENZYMES (5) Lactic acidosis Code(s): E87.2 - ACIDOSIS (6) Respiratory failure Code(s): J96.90 - RESPIRATORY FAILURE, UNSP, UNSP W HYPOXIA OR HYPERCAPNIA Qualifiers: Chronicity: acute Respiratory failure complication: hypoxia Qualified Code(s): J96.01 - Acute respiratory failure with hypoxia (7) Troponin I above reference range Code(s): R74.8 - ABNORMAL LEVELS OF OTHER SERUM ENZYMES Visit type - Emergency Visit Emergency Visit: Yes ED Registration Date: 12/13/19 Care time: The patient presented to the Emergency Department on the above date and was hospitalized for further evaluation of their emergent condition. - New Patient This patient is new to me today: Yes Date on this admission: 12/13/19 - Critical Care Critical Care patient: No ATTENDING PHYSICIAN STATEMENT I saw and evaluated the patient. I reviewed the resident's note and discussed the case with the resident. I agree with the resident's findings and plan as documented. SUBJECTIVE: OBJECTIVE: ASSESSMENT AND PLAN:
[2019-12-13 11:30] LABS: ALBUMIN 2.8 g/dl (3.4-5.0); BILIRUBIN,TOTAL 0.6 mg/dL (0.2-1); BLOOD UREA NITROGEN 24.2 mg/dL (7-18); CALCIUM 7.2 mg/dL (8.5-10.1); POTASSIUM 3.4 mmol/L (3.5-5.1)
[2019-12-13 11:33] LABS: CREATININE 1.4 mg/dL (0.55-1.3)
--- NOTE | 2019-12-13 12:11 | HP ---
CHIEF COMPLAINT: PCP: Dr Patricia HISTORY OF PRESENT ILLNESS: 5p year old male with known history of CHF, CMP sp AICF placement, CAD sp cardiac stent placement x1, HLD, anemia, renal stones who was taken to the ED via ambulat for severe respiratory distress. Patient reports waking up very short of breath, worse after he walked to the bathroom to use the toilet. At this time he felt his chest was going to explode. Ambulance was called and he was taken to ED At the ED he was found to be diaphoretic, with BP of 220/110, in acute respiratory distress. Needed BIPAP support. Recent Travel: none PAST MEDICAL HISTORY: as above PAST SURGICAL HISTORY: as above Family history: Father of cancer at 89 years of age. Mother of natural causes at 93 years of age. Social History: Smoking: smokes 1 PPD Alcohol: denies Drugs: marijuana twice a week. Allergies adhesive tape Allergy (Verified 12/13/19 07:59) HOME MEDICATIONS: Home Medications Medication Instructions Recorded Duloxetine HCl 60 mg PO DAILY 05/25/19 Ferrous Sulfate 325 mg PO TID 05/25/19 Folic Acid 1 mg PO DAILY 05/25/19 Mirtazapine 15 mg PO DAILY 05/25/19 Vitamin B Complex [B Complex] 1 each PO DAILY 05/25/19 Zolpidem Tartrate [Ambien] 10 mg PO HS 05/25/19 Aspirin Coated [Ecotrin -] 81 mg PO DAILY tablet.ec 05/30/19 Levalbuterol HCl [Xopenex] 0.31 mg IH Q8H PRN #2 vial.neb 05/30/19 Metoprolol Succinate [Toprol XL -] 50 mg PO DAILY #90 tab.sr.24h 05/30/19 Nicotine Patch [Nicoderm Patch -] 21 mg TD DAILY patch 05/30/19 Quinapril HCl [Accupril -] 10 mg PO DAILY #90 tablet 05/30/19 Spironolactone [Aldactone -] 25 mg PO DAILY #90 tablet 05/30/19 REVIEW OF SYSTEMS CONSTITUTIONAL: Absent: fever, chills, Present: malaise, loss of appetite HEENT: Absent: rhinorrhea, nasal congestion, throat pain, throat swelling, difficulty swallowing, mouth swelling, ear pain, eye pain, visual changes CARDIOVASCULAR: Absent: chest pain, syncope, palpitations, irregular heart rate, lightheadedness Positive: peripheral edema RESPIRATORY: Absent: cough, shortness of breath, dyspnea with exertion, orthopnea, wheezing, stridor, hemoptysis GASTROINTESTINAL: Absent: abdominal pain, abdominal distension, nausea, vomiting, diarrhea, constipation, melena, hematochezia GENITOURINARY: Absent: dysuria, frequency, urgency, hesitancy, hematuria, flank pain, genital pain MUSCULOSKELETAL: Absent: myalgia, arthralgia, joint swelling, back pain, neck pain SKIN: Absent: rash, itching, pallor HEMATOLOGIC/IMMUNOLOGIC: Absent: easy bleeding, easy bruising, lymphadenopathy, frequent infections ENDOCRINE: Absent: unexplained weight gain, unexplained weight loss, heat intolerance, cold intolerance NEUROLOGIC: Absent: headache, focal weakness or paresthesias, dizziness, unsteady gait, seizure, mental status changes, bladder or bowel incontinence PSYCHIATRIC: Absent: anxiety, depression, suicidal or homicidal ideation, hallucinations. PHYSICAL EXAMINATION Vital Signs - 24 hr 12/13/19 12/13/19 12/13/19 07:57 08:15 08:30 Pulse Rate 109 H Pulse Rate [ 102 H Apical] Respiratory 16 18 Rate Blood Pressure 222/149 H Blood Pressure 163/112 H [Right Arm] O2 Sat by Pulse 100 100 100 Oximetry (%) 12/13/19 12/13/19 12/13/19 09:10 10:30 11:40 Pulse Rate Pulse Rate [ 80 82 Apical] Respiratory 22 H Rate Blood Pressure Blood Pressure 165/109 H 148/102 H [Right Arm] O2 Sat by Pulse 100 100 Oximetry (%) GENERAL: Awake, alert, and fully oriented, wearing bipap mask; in mild resp distress. HEAD: Normal with no signs of trauma. EYES: Pupils equal, round and reactive to light, extraocular movements intact, sclera anicteric, conjunctiva clear. No lid lag. EARS, NOSE, THROAT: Ears normal, nares patent, oropharynx clear without exudates. Moist mucous membranes. NECK: Normal range of motion, supple without lymphadenopathy, positive JVD, or masses. LUNGS/chest: Faint coarse breath sounds bilateral lung arboleda with accessory muscle use. HEART: Regular rate and rhythm, normal S1 and S2 without murmur, rub or gallop. ABDOMEN: Soft, nontender, not distended, normoactive bowel sounds, no guarding, no rebound, no masses. No hepatomegaly or splenomegaly. MUSCULOSKELETAL: Normal range of motion at all joints. No bony deformities or tenderness. No CVA tenderness. UPPER EXTREMITIES: 2+ pulses, warm, well-perfused. No cyanosis. No clubbing. No peripheral edema. LOWER EXTREMITIES: 2+ pulses, warm, well-perfused. No calf tenderness. trace peripheral edema. NEUROLOGICAL: Cranial nerves II-XII intact. Normal speech. Normal gait. PSYCHIATRIC: Cooperative. Good eye contact. Appropriate mood and affect. SKIN: Warm, dry, normal turgor, no rashes or lesions noted, normal capillary refill. Laboratory Results - last 24 hr 12/13/19 12/13/19 12/13/19 08:05 08:12 08:12 WBC 5.5 RBC 3.64 L Hgb 9.7 L Hct 31.8 L MCV 87.2 MCH 26.8 MCHC 30.7 L RDW 17.4 H Plt Count 169 MPV 8.2 Absolute Neuts (auto) 2.8 Neutrophils % 50.4 Lymphocytes % 37.4 Monocytes % 8.2 Eosinophils % 3.3 Basophils % 0.7 Nucleated RBC % 0 PT with INR 13.30 H INR 1.13 H PTT (Actin FS) 22.3 L Anticoagulation Therapy No Result Required. Puncture Site Right radial Patient Temperature No Result Required. ABG pH 7.253 L ABG pCO2 41.90 ABG pO2 389.9 H ABG HCO3 18.1 L ABG O2 Sat (Measured) 99.8 H ABG O2 Content No Result Required. ABG Base Excess -8.6 L Jasvir Test No Result Required. Patient On Oxygen Yes O2 Delivery Device Bipap Oxygen Flow Rate 100% Vent Mode S/t Vent Rate 24 Mechanical Rate Bipap PEEP No Result Required. Pressure Support Vent 24/10 Sodium Potassium Chloride Carbon Dioxide Anion Gap BUN Creatinine Est GFR (CKD-EPI)AfAm Est GFR (CKD-EPI)NonAf Random Glucose Lactic Acid Calcium Magnesium Total Bilirubin AST ALT Alkaline Phosphatase Creatine Kinase Creatine Kinase Index CK-MB (CK-2) Troponin I B-Natriuretic Peptide Total Protein Albumin 12/13/19 12/13/19 12/13/19 08:12 08:12 10:15 WBC RBC Hgb Hct MCV MCH MCHC RDW Plt Count MPV Absolute Neuts (auto) Neutrophils % Lymphocytes % Monocytes % Eosinophils % Basophils % Nucleated RBC % PT with INR INR PTT (Actin FS) Anticoagulation Therapy Puncture Site Patient Temperature ABG pH ABG pCO2 ABG pO2 ABG HCO3 ABG O2 Sat (Measured) ABG O2 Content ABG Base Excess Jasvir Test Patient On Oxygen O2 Delivery Device Oxygen Flow Rate Vent Mode Vent Rate Mechanical Rate PEEP Pressure Support Vent Sodium 141 145 Potassium 4.1 3.4 L Chloride 109 H 114 H Carbon Dioxide 20 L 23 Anion Gap 11 8 BUN 27.2 H 24.2 H Creatinine 1.8 H 1.4 H Est GFR (CKD-EPI)AfAm 46.38 62.84 Est GFR (CKD-EPI)NonAf 40.02 54.22 Random Glucose 212 H 122 H Lactic Acid 5.0 H* Calcium 8.2 L 7.2 L Magnesium 2.2 2.0 Total Bilirubin 1.3 H 0.6 AST 141 H 95 H ALT 84 H 72 H Alkaline Phosphatase 139 H 111 Creatine Kinase 157 Creatine Kinase Index 0.8 CK-MB (CK-2) 1.4 Troponin I 0.17 H 0.14 H B-Natriuretic Peptide 3467.9 H Total Protein 7.6 6.0 L Albumin 3.3 L 2.8 L ASSESSMENT/PLAN: 1. acute resp distress secondary to CHF exacerbation - serial troponins - telemetry - bipap until breathing stable - cont home meds - echocardiogram - NTG drip ongoing - tattoo artist Dr Rooney consulted 2. NSTEMI likely demand mediated secondary #1 - aspirin, statin, - already on NTG patch - Dr Rooney (pt's tattoo artist) consulted 3. DVT prophylaxis - heparin SQ Visit type - Emergency Visit Emergency Visit: Yes ED Registration Date: 12/13/19 Care time: The patient presented to the Emergency Department on the above date and was hospitalized for further evaluation of their emergent condition. - New Patient This patient is new to me today: Yes Date on this admission: 12/25/19 - Critical Care Critical Care patient: No
--- NOTE | 2019-12-13 12:43 | PN ---
Teaching Attending Note Name of Resident: Antonietta Archuleta ATTENDING PHYSICIAN STATEMENT I saw and evaluated the patient. I reviewed the resident's note and discussed the case with the resident. I agree with the resident's findings and plan as documented. SUBJECTIVE: Pt seen and examined in the ED. Remains on BiPAP on nitro gtt. States he feels much improved. Saturating 100% on 40% FiO2. Chest pain has resolved. OBJECTIVE: Vital Signs Period Temp Pulse Resp BP Sys/Rosado Pulse Ox Last 24 Hr 80-109 16-22 148-222/102-149 100-100 Intake & Output 12/10/19 12/11/19 12/12/19 12/13/19 23:59 23:59 23:59 23:59 Output Total 800 Balance -800 Weight 99.79 kg Gen: NAD on BiPAP Heart: RRR Lung: scattered basilar rhonchi, wheezes Abd: soft, nontender Ext: no edema CBC, BMP 12/13/19 08:12 12/13/19 10:15 Active Medications Furosemide (Lasix Injection -) 40 mg IVPUSH DAILY [facility] Heparin Sodium (Porcine) (Heparin -) 5,000 unit SQ BID [facility] Nitroglycerin/Dextrose (Nitroglycerin 25mg/D5w 250ml) 25 mg in 250 mls @ 6 mls/hr IVPB TITR HONEY Last Titration: 12/13/19 10:30 Dose: 80 mcg/min, 48 mls/hr Documented by: Nitroglycerin/Dextrose (Nitroglycerin 50mg/D5w 250ml) 50 mg in 250 mls @ 3 mls/hr IVPB TITR HONEY Last Admin: 12/13/19 08:52 Dose: Not Given Documented by: ASSESSMENT AND PLAN: Hypertensive Urgency Acute on Chronic Systolic/Diastolic Heart Failure CAD +Troponins likely Demand Ischemia Lactic Acidosis likely from Respiratory Distress CKD HTN Hyperlipidemia Anemia - continue lasix - monitor urine output, creatinine - titrate off nitro gtt - transition to nasal cannula - O2 to keep Spo2 >90% - encourage compliance with medications - DVT prophylaxis - clinically much improved, does not require ICU monitoring, will follow
[2019-12-13] MEDS ORDERED: ACETAMINOPHEN INJECTION 100 ML IVPB ONE (15:41)
[2019-12-13] MEDS ORDERED: ACETAMINOPHEN 1000 MG/100 ML VIAL (NON FORMULARY) IVPB ONE (15:48)
--- NOTE | 2019-12-13 16:29 | ECHO ---
Name: LIA MESA Exam:Adult Echocardiogram Study Date: 12/13/2019 02:13 PM Age: 59 yrs Reason For Study: Flash pulm edema; Hx CMP MMode/2D Measurements & Calculations RVDd: 3.8 cm Ao root diam: 4.0 cm IVSd: 1.9 cm LA dimension: 4.6 cm LVIDd: 6.4 cm ACS: 2.1 cm LVIDs: 4.9 cm LVPWd: 1.9 cm IVSs: 2.0 cm EDV(Teich): 206.9 ml LVOT diam: 2.5 cm ESV(Teich): 111.2 ml LVLd ap4: 9.7 cm SV(MOD-sp4): 154.0 ml EDV(MOD-sp4): 291.0 ml LVLs ap4: 8.4 cm ESV(MOD-sp4): 137.0 ml LAV (MOD-bp): 179.0 ml TAPSE: 2.2 cm RV S Grayson: 17.0 cm/sec Doppler Measurements & Calculations MV E max grayson: 67.1 cm/sec Ao V2 max: 150.4 cm/sec MV A max grayson: 62.7 cm/sec Ao max P.3 mmHg MV E/A: 1.1 Ao V2 mean: 108.9 cm/sec MV dec time: 0.25 sec Ao mean P.3 mmHg Ao V2 VTI: 24.0 cm TYRELL(I,D): 3.1 cm2 AI P1/2t: 688.7 msec TYRELL(V,D): 2.9 cm2 AI max grayson: 512.0 cm/sec LV V1 max P.1 mmHg AI max P.9 mmHg LV V1 mean P.6 mmHg LV V1 max: 87.9 cm/sec AI dec slope: 217.7 cm/sec2 LV V1 mean: 58.5 cm/sec LV V1 VTI: 15.2 cm MR max grayson: 562.7 cm/sec SV(LVOT): 75.3 ml MR max P.6 mmHg TR max grayson: 245.4 cm/sec PA V2 max: 77.4 cm/sec TR max P.7 mmHg PA max P.4 mmHg PA acc slope: 497.3 cm/sec2 PA acc time: 0.15 sec Med Peak E' Grayson: 5.8 cm/sec PA pr(Accel): 12.5 mmHg Med E/e': 11.7 Lat Peak E' Grayson: 6.8 cm/sec Lat E/e': 9.8 Tech Comments Patient scanned sitting up, on BiPap. Unable to lay still. Procedure A complete two-dimensional transthoracic echocardiogram was performed (2D, M-mode, Doppler and color flow Doppler). Left Ventricle There is moderate concentric left ventricular hypertrophy. The left ventricle is moderately dilated. Left ventricular systolic function is moderately reduced. Ejection Fraction = 40-45%. There is moderate gl obal hypokinesis of the left ventricle. Right Ventricle The right ventricle is normal in size and function. There is a pacemaker lead in the right ventricle. Atria The left atrium is moderately dilated. The right atrium is mildly dilated. Mitral Valve There is mild mitral regurgitation. Tricuspid Valve There is trace tricuspid regurgitation. Right ventricular systolic pressure is normal. Aortic Valve The aortic valve is trileaflet. No hemodynamically significant valvular aortic stenosis. Mild aortic regurgitation. Pulmonic Valve There is no pulmonic valvular regurgitation. Great Vessels Mild aortic root dilatation. Pericardium/Pleura There is no pericardial effusion. Interpretation Summary There is moderate concentric left ventricular hypertrophy. The left ventricle is moderately dilated. Left ventricular systolic function is moderately reduced. The right ventricle is normal in size and function. There is a pacemaker lead in the right ventricle. The left atrium is moderately dilated. The right atrium is mildly dilated. There is mild mitral regurgitation. There is trace tricuspid regurgitation. Mild aortic regurgitation. Mild aortic root dilatation. MD Jose Hathaway 12/13/2019 04:28 PM
--- NOTE | 2019-12-13 17:36 | EKG ---
Test Reason : Blood Pressure : / mmHG Vent. Rate : 091 BPM Atrial Rate : 091 BPM P-R Int : 172 ms QRS Dur : 098 ms QT Int : 450 ms P-R-T Axes : 036 039 124 degrees QTc Int : 553 ms SINUS RHYTHM WITH FUSION COMPLEXES AND PREMATURE ATRIAL COMPLEXES PROLONGED QT ABNORMAL ECG WHEN COMPARED WITH ECG OF 26-MAY-2019 10:53, FUSION COMPLEXES ARE NOW PRESENT PREMATURE ATRIAL COMPLEXES ARE NOW PRESENT QT HAS LENGTHENED Confirmed by CLARENCE MORRIS MD ([id number]) on 12/13/2019 5:35:36 PM Referred By: Confirmed By:CLARENCE MORRIS MD
[2019-12-13] MEDS ORDERED: HEPARIN NA (PORCINE) 5,000 UNITS/ML 1ML VIAL ONE (23:10)
[2019-12-13] MEDS: HEPARIN NA (PORCINE) 5,000 UNITS/ML 1ML VIAL SQ SCH (23:31)
[2019-12-14] MEDS ORDERED: NITROGLYCERIN 25MG/D5W 250ML 25 MG/250 ML ML IVPB ONE (07:47)
[2019-12-14] MEDS: NITROGLYCERIN 25MG/D5W 250ML 25 MG/250 ML ML IVPB SCH (07:57)
--- NOTE | 2019-12-14 08:41 | CON.CARD ---
Consult Consult Specialty:: Cardiology Referred by:: Lucie Donald Reason for Consultation:: hypertensive urgency - History of Present Illness Chief Complaint: SOB History of Present Illness: 59 M with hypertensive cardiomyopathy, ?HOCM, VT, s/p ICD ([place]) chronic uncontrolled HTN, poor compliance, mild ascending aortic aneurysm, mild AR presents again with uncontrolled HTN 160/112 with SOB and CHF. Responded to IV nitro, now feeling better. States he may have missed one day of medications. [facility] VT on loopd recorder and scar on MRI with sig hypertrophy on echo - History Source History Provided By: Patient - Past Medical History Cardio/Vascular: Yes: CAD (non-obstx), CHF (Chronic systolic and diastolic CHF), HTN, Other (NSVT) Pulmonary: Yes: Sleep Apnea Renal/: Yes: Renal Inusuff, Renal Calculi Psych: Yes: Depression - Alcohol/Substance Use Hx Alcohol Use: No History of Substance Use: reports: Marijuana - Smoking History Smoking history: Unknown if ever smoked Have you smoked in the past 12 months: No Aproximately how many cigarettes per day: 6 - Social History Usual Living Arrangement: With Spouse ADL: Independent Occupation: currently unemployed Home Medications - Allergies Allergies/Adverse Reactions: Allergies Allergy/AdvReac Type Severity Reaction Status Date / Time adhesive tape Allergy Verified 12/13/19 07:59 - Home Medications Home Medications: Ambulatory Orders NK [No Known Home Medication] 12/13/19 Family Medical History Family History: Unremarkable Review of Systems - Review of Systems Constitutional: reports: No Symptoms Eyes: reports: No Symptoms HENT: reports: No Symptoms Neck: reports: No Symptoms Cardiovascular: reports: Shortness of Breath Respiratory: reports: PND, SOB Gastrointestinal: denies: No Symptoms, Abdominal Pain, Bloating, Constipation, Diarrhea, Dysphagia, Indigestion, Melena, Nausea, Rectal Bleeding, Vomiting, Vomiting Blood, Other Genitourinary: denies: No Symptoms, Burning, Discharge, Dysuria, Flank Pain, Frequency, Hematuria, Incontinence, Lesions, Menses, Pain, Testicular Mass, Testicular Pain, Testicular Swelling, Urgency, Vaginal Bleeding, Other Breasts: denies: No Symptoms Reported, See HPI, Breast Implants, Discharge from Nipple, Lumps, Pain, Skin Changes, Other Musculoskeletal: denies: No Symptoms, Back Pain, Crepitus, Decreased ROM, Extremity Pain, Joint Pain, Joint Swelling, Muscle Pain, Muscle Cramps, Muscle Weakness, Other Integumentary: denies: No Symptoms, Blister, Bruising, Change in Color, Eczema, Erythema, Incision, Lesions, Lump, Pallor, Pruritis, Rash, Wound, Other Neurological: denies: No Symptoms, Change in LOC, Change in Speech, Confusion, Dizziness, Headache, Incoordination, Numbness, Parasthesia, Pre-Existing Deficit, Seizure, Syncope, Tremors, Unsteady Gait, Weakness, Other Endocrine: denies: No Symptoms, Excessive Sweating, Flushing, Increased Hunger, Increased Thirst, Intolerance to Cold, Intolerance to Heat, Unexplained Weight Gain, Unexplained Weight Loss, Other Hematology/Lymphatic: denies: No Symptoms, Easily Bruised, Excessive Bleeding, Swollen Glands, Other Psychiatric: denies: No Symptoms, Altered Sleep Pattern, Anxiety, Depression, Hallucinations, Panic, Paranoia, Suicidal, Other - Risk Factors Known Risk Factors: Yes: Hypertension, Smoking Vital Signs: Vital Signs Temperature Pulse Rate 96 H 12/14/19 08:04 Respiratory Rate 20 12/14/19 08:04 Blood Pressure 164/127 H 12/14/19 08:04 O2 Sat by Pulse Oximetry (%) 100 12/14/19 08:06 Constitutional: Yes: No Distress Eyes: Yes: Conjunctiva Clear Respiratory: Yes: Other (decreased breath sounds at bases b/l) Gastrointestinal: Yes: Soft (nt) JVD: No Heart Sounds: Yes: S1, S2, S3 Edema: No Peripheral Pulses WNL: Yes Neurological: Yes: Alert, Oriented - Other Data Labs, Other Data: CBC, BMP 12/13/19 08:12 INR, PTT INR 1.13 (0.83-1.09) H 12/13/19 08:12 Troponin, BNP 12/13/19 12/13/19 08:12 10:15 Troponin I 0.17 H 0.14 H B-Natriuretic Peptide 3467.9 H Troponin, BNP 12/13/19 12/13/19 08:12 10:15 Troponin I 0.17 H 0.14 H B-Natriuretic Peptide 3467.9 H Laboratory Tests 12/13/19 12/13/19 12/13/19 08:12 08:12 08:12 WBC 5.5 Hgb 9.7 L Plt Count 169 INR 1.13 H Sodium Potassium BUN Creatinine Lactic Acid Troponin I 0.17 H B-Natriuretic Peptide 3467.9 H 12/13/19 12/13/19 12/14/19 08:12 10:15 07:32 WBC Hgb Plt Count INR Sodium 145 Pending Potassium 3.4 L Pending BUN 24.2 H Pending Creatinine 1.4 H Pending Lactic Acid 5.0 H* Troponin I 0.14 H B-Natriuretic Peptide nsr , lvh, LAE, NSST changes laterally Echo: Report Reviewed Imaging - Results Chest X-ray: Image Reviewed EKG: Image Reviewed Assessment/Plan IMP: Hypertensive urgency, suspected medication non-adherence Non-ischemic CM Hypertensive cardiomyopathy with moderate LV dysfx , EF 40-45% Small thoracic aortic aneurysm Mild AR s/p ICD Equivocal TnI REC: 1. Hypertensive urgency: -Wean nitro gtts. -Hospital records reviewed: patient was here in May with controlled BP on T oprol Xl 50, Quinapril 10 and Aldactone 25. Will resume and observe BP trend. -Telemetry 2. Non-ischemic CM: -Several caths all non-obstx to my recollection. Will check records with EP at [place] to see if subsequent caths have shown change -Scar on MRI w/ VT on loop, has ICD 3. HTN CM, EF moderately reduced: -Resume Toprol XL 50mg, Quinapril and Aldactone -Observe BP trend and daily BMP monitor renal fx -To consider Entresto as outpatient 4. Thoracic aneurysm: -Small -Beta amber -Smoking cessation -Yearly echo 5. ICD: -[facility] by EP Dr. Faria 6. Mild AR: -Yearly echo, no intervention required at this time 7. Equivocal TnI: -In setting acute CHF, CKD. Doubt ACS. -Control BP, diurese -Can resume ASA 81mg daily and check fasting lipids -Will review [facility] records with EP to assure no recent caths with sig CAD.
[2019-12-14] MEDS ORDERED: QUINAPRIL HCL 10 MG TABLET (FP) ONE (08:44)
[2019-12-14] MEDS ORDERED: SPIRONOLACTONE 25 MG TABLET ONE (08:45)
[2019-12-14] MEDS ORDERED: FUROSEMIDE 40 MG/4 ML INJECTABLE VIAL ONE (08:45)
[2019-12-14] MEDS ORDERED: HEPARIN NA (PORCINE) 5,000 UNITS/ML 1ML VIAL ONE (08:45)
[2019-12-14 08:58] LABS: BLOOD UREA NITROGEN 18.7 mg/dL (7-18); CALCIUM 8.4 mg/dL (8.5-10.1); CREATININE 1.3 mg/dL (0.55-1.3); POTASSIUM 3.1 mmol/L (3.5-5.1)
[2019-12-14] MEDS: HEPARIN NA (PORCINE) 5,000 UNITS/ML 1ML VIAL SQ SCH ×2 (09:04→21:38)
[2019-12-14] MEDS: QUINAPRIL HCL 10 MG TABLET (FP) PO SCH (09:04)
[2019-12-14] MEDS: SPIRONOLACTONE 25 MG TABLET PO SCH (09:04)
[2019-12-14] MEDS ORDERED: FUROSEMIDE 40 MG/4 ML INJECTABLE VIAL IVPUSH SCH (10:00)
[2019-12-14] MEDS ORDERED: KCL 10 MEQ IVPB 30 MEQ/300 ML INFUS.BAG IVPB ONE (11:27)
[2019-12-14] MEDS: KCL 10 MEQ IVPB 10 MEQ/100 ML INFUS.BAG IVPB SCH ×3 (11:31→14:06)
[2019-12-14] MEDS ORDERED: hydrALAZINE HCL 20 MG/ML VIAL IVPUSH ONE (11:37)
[2019-12-14] MEDS ORDERED: hydrALAZINE HCL 20 MG/ML VIAL ONE (11:55)
--- NOTE | 2019-12-14 13:13 | PN ---
Progress Note (short form) - Note Progress Note: Patient seen in the ER. Comfortable on RA eating lunch. Did use NIPPV overnight. Less SOB. No CP. Intake & Output 12/11/19 12/12/19 12/13/19 12/14/19 23:59 23:59 23:59 23:59 Output Total 800 Balance -800 Weight 220 lb Last Vital Signs Temp Pulse Resp BP Pulse Ox 98.5 F 80 15 162/118 H 100 12/14/19 10:55 12/14/19 11:37 12/14/19 10:40 12/14/19 11:37 12/14/19 09:07 Active Medications Furosemide (Lasix Injection -) 40 mg IVPUSH DAILY [facility] Last Admin: 12/14/19 09:04 Dose: 40 mg Documented by: Heparin Sodium (Porcine) (Heparin -) 5,000 unit SQ BID [facility] Last Admin: 12/14/19 09:04 Dose: 5,000 unit Documented by: Potassium Chloride (Potassium Chloride 10 Meq Premix Ivpb -) 10 meq in 100 mls @ 100 mls/hr IVPB Q60M [facility] Stop: 12/14/19 14:29 Last Admin: 12/14/19 12:37 Dose: 100 mls/hr Documented by: Metoprolol Succinate (Toprol Xl -) 50 mg PO DAILY [facility] Last Admin: 12/14/19 09:04 Dose: 50 mg Documented by: Quinapril HCl (Accupril -) 10 mg PO DAILY [facility] Last Admin: 12/14/19 09:04 Dose: 10 mg Documented by: Spironolactone (Aldactone -) 25 mg PO DAILY [facility] Last Admin: 12/14/19 09:04 Dose: 25 mg Documented by: Gen: NAD on RA Heart: RRR Lung: scattered basilar rhonchi, wheezes Abd: soft, nontender Ext: no edema Laboratory Results - last 24 hr 12/14/19 07:32 Sodium 138 Potassium 3.1 L Chloride 105 Carbon Dioxide 25 Anion Gap 8 BUN 18.7 H Creatinine 1.3 Est GFR (CKD-EPI)AfAm 68.74 Est GFR (CKD-EPI)NonAf 59.31 Random Glucose 116 H Calcium 8.4 L ASSESSMENT AND PLAN: Hypertensive Urgency Acute on Chronic Systolic/Diastolic Heart Failure CAD +Troponins likely Demand Ischemia Lactic Acidosis likely from Respiratory Distress CKD HTN Hyperlipidemia Anemia - continue lasix - monitor urine output, creatinine - titrate off nitro gtt - transition to nasal cannula - O2 to keep Spo2 >90% - encourage compliance with medications - DVT prophylaxis - clinically much improved Dr Dillard
[2019-12-14] MEDS ORDERED: LABETALOL HCL INJECTION 1,000 MG in SODIUM CHLORIDE 800 ML IV SCH (14:30)
--- NOTE | 2019-12-14 15:04 | CONSULT ---
Consultation: REQUESTING PROVIDER: CONSULT REQUEST: We have been asked to medically evaluate this patient for (specify). HISTORY OF PRESENT ILLNESS: The patient is a 59 yo M w/ PMH CHF, hypertensive cardiomyopathy, possible HOCM w/ Vtach s/p AICD placement at [facility], CAD sp cardiac stent place ment x1, HLD, anemia, renal stones who was BIBEMS for severe respiratory distress and chest pain. Patient reports waking up very short of breath, worse after he walked to the bathroom to use the toilet. He states that he takes his medications daily, but does not always take them at the same time of day every day. Patient follows with cardiology and his PCP, but has not seen either for several months due to the COVID crisis. In the ED, the patient was found to be diaphoretic, with BP of 220/110, in acute respiratory distress. He was placed on BiPap and later titrated down to NC. ICU was originally consulted for SOB, but the patient's airway was stable at that time and he was cleared for transfer to [facility]. Patient received his home medications as well as a nitro drip in the ED without effect on his BP. Cardio recommended a labetolol drip to be titrated down, prompting ICU re-consult. On interview, the patient is alert and oriented x3 and pleasant. He states that his chest pain as resolved, but he continues to experience mild shortness of breath which has improved since admission. REVIEW OF SYSTEMS: Negative except for HPI PHYSICAL EXAMINATION Vital Signs - 24 hr 12/13/19 12/13/19 12/13/19 20:22 22:42 22:50 Temperature Pulse Rate [ 93 H Apical] Respiratory 22 H Rate Blood Pressure 210/128 H 178/115 H [Right Arm] O2 Sat by Pulse 100 95 Oximetry (%) 12/14/19 12/14/19 12/14/19 03:02 07:04 08:04 Temperature Pulse Rate [ 90 89 96 H Apical] Respiratory 22 H 18 20 Rate Blood Pressure 162/113 H 163/110 H 164/127 H [Right Arm] O2 Sat by Pulse 96 99 100 Oximetry (%) 12/14/19 12/14/19 12/14/19 08:06 09:07 10:40 Temperature Pulse Rate [ 82 82 Apical] Respiratory 18 15 Rate Blood Pressure 179/120 H 165/129 H [Right Arm] O2 Sat by Pulse 100 100 Oximetry (%) 12/14/19 12/14/19 12/14/19 10:55 11:37 13:31 Temperature 98.5 F Pulse Rate [ 80 86 Apical] Respiratory 24 H Rate Blood Pressure 162/118 H 164/128 H [Right Arm] O2 Sat by Pulse 100 Oximetry (%) 12/14/19 14:13 Temperature Pulse Rate [ Apical] Respiratory Rate Blood Pressure 138/103 H [Right Arm] O2 Sat by Pulse Oximetry (%) GENERAL: Awake, alert, and fully oriented, in no acute distress. HEAD: Normal with no signs of trauma. EYES: Pupils equal, round and reactive to light, extraocular movements intact, sclera anicteric, conjunctiva clear. No lid lag. LUNGS: Breath sounds equal, clear to auscultation bilaterally. No wheezes, and no crackles. No accessory muscle use. HEART: Regular rate and rhythm, normal S1 and S2 without murmur, rub or gallop. ABDOMEN: Soft, nontender, not distended, normoactive bowel sounds, no guarding, no rebound, no masses. No hepatomegaly or splenomegaly. umbilical hernia present. LOWER EXTREMITIES: 2+ pulses, warm, well-perfused. No calf tenderness. No peripheral edema. NEUROLOGICAL: Cranial nerves II-X intact. Normal speech. Laboratory Results - last 24 hr 12/14/19 07:32 Sodium 138 Potassium 3.1 L Chloride 105 Carbon Dioxide 25 Anion Gap 8 BUN 18.7 H Creatinine 1.3 Est GFR (CKD-EPI)AfAm 68.74 Est GFR (CKD-EPI)NonAf 59.31 Random Glucose 116 H Calcium 8.4 L Active Medications Generic Name Dose Route Start Last Admin Trade Name Anatolyq PRN Reason Stop Dose Admin Furosemide 40 mg 12/14/19 10:00 12/14/19 09:04 Lasix Injection - IVPUSH 40 mg DAILY HONEY Administration Heparin Sodium (Porcine) 5,000 unit 12/13/19 22:00 12/14/19 09:04 Heparin - SQ 5,000 unit BID HONEY Administration Labetalol HCl 1,000 mg/ Sodium 1,000 mls @ 30 mls/hr 12/14/19 14:30 Chloride IV TITR HONEY 0.5 MG/MIN Metoprolol Succinate 50 mg 12/14/19 10:00 12/14/19 09:04 Toprol Xl - PO 50 mg DAILY HONEY Administration Quinapril HCl 10 mg 12/14/19 10:00 12/14/19 09:04 Accupril - PO 10 mg DAILY HONEY Administration Spironolactone 25 mg 12/14/19 10:00 12/14/19 09:04 Aldactone - PO 25 mg DAILY HONEY Administration ASSESSMENT/PLAN: The patient is a 59 yo M w/ PMH CHF, hypertensive cardiomyopathy, possible HOCM w/ Vtach s/p AICD placement at [facility], CAD sp cardiac stent placement x1, HLD, anemia, renal stones who was BIBEMS for severe respiratory distress and chest pain. Patient is admitted to ICU for hypertensive urgency necessitating labetolol drip. 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 -titrate patient off supplemental O2 as tolerated. #FEN -no fluids indicated -patient hypokalemic, repleted -fat/cholesterol/sodium restricted diet #Prophy -Heparin SQ 5k units BID -Protonix 40mg PO #Dispo -admit ICU for labetolol GTT titration. Dispo: We will continue to follow the patient. Thank you for this consultative opportunity. Visit type - Emergency Visit Emergency Visit: Yes ED Registration Date: 12/13/19 Care time: The patient presented to the Emergency Department on the above date and was hospitalized for further evaluation of their emergent condition. - New Patient This patient is new to me today: Yes Date on this admission: 12/14/19 - Critical Care Critical Care patient: Yes Total Critical Care Time (in minutes): 40 Critical Care Statement: The care of this patient involved high complexity deci yfn making to prevent further life threatening deterioration of the patient's condition and/or to evaluate & treat vital organ system(s) failure or risk of failure. ATTENDING PHYSICIAN STATEMENT I saw and evaluated the patient. I reviewed the resident's note and discussed the case with the resident. I agree with the resident's findings and plan as documented. SUBJECTIVE: OBJECTIVE: ASSESSMENT AND PLAN:
--- NOTE | 2019-12-14 16:01 | PN ---
Physical Exam: SUBJECTIVE: Patient seen and examined. He reports sudden onset shortness of breath while trying to get out of bed yesterday. Currently, he is comfortable. He denies shortness of breath, chest pain, n/v/d, headache. Pt reports non-compliance with daily HTN medications. He takes them if he feels bad and doesn't when he feels good. He also recently had pizza and Swiss takeout. He sometimes checks his pressure at home but does not recall what it runs. He felt lightheaded once in ED while walking back from the bathroom. He stood for a minute and then was ok. OBJECTIVE: Vital Signs Period Temp Pulse Resp BP Sys/Rosado Pulse Ox Last 24 Hr 98.5 F 80-96 15-24 138-210/103-129 95-100 GENERAL: The patient is awake, alert, and fully oriented, in no acute distress. HEAD: Normal with no signs of trauma. EYES: PERRL, extraocular movements intact, conjunctiva clear. ENT: Ears normal, nares patent, moist mucous membranes. NECK: Trachea midline, full range of motion. LUNGS: Clear to auscultation bilaterally, no wheezes, no crackles, no accessory muscle use. on NC. HEART: Regular rate and irregular rhythm, 3/6 systolic murmur. ABDOMEN: Soft, nontender, nondistended, normoactive bowel sounds. EXTREMITIES: 2+ pulses, warm, well-perfused, no edema. NEUROLOGICAL: Cranial nerves II through XII grossly intact. Normal speech. PSYCH: Normal mood, normal affect. SKIN: Warm, dry, normal turgor. Laboratory Results - last 24 hr 12/14/19 07:32 Sodium 138 Potassium 3.1 L Chloride 105 Carbon Dioxide 25 Anion Gap 8 BUN 18.7 H Creatinine 1.3 Est GFR (CKD-EPI)AfAm 68.74 Est GFR (CKD-EPI)NonAf 59.31 Random Glucose 116 H Calcium 8.4 L Active Medications Generic Name Dose Route Start Last Admin Trade Name Freq PRN Reason Stop Dose Admin Chlorhexidine Gluconate 1 applic 12/14/19 22:00 Hibiclens For Decolonization - TP HS HONEY Furosemide 40 mg 12/14/19 10:00 12/14/19 09:04 Lasix Injection - IVPUSH 40 mg DAILY HONEY Administration Heparin Sodium (Porcine) 5,000 unit 12/13/19 22:00 12/14/19 09:04 Heparin - SQ 5,000 unit BID HONEY Administration Labetalol HCl 1,000 mg/ Sodium 1,000 mls @ 30 mls/hr 12/14/19 14:30 12/14/19 15:24 Chloride IV 0.5 mg/min TITR HONEY 30 mls/hr Administration 0.5 MG/MIN Metoprolol Succinate 50 mg 12/14/19 10:00 12/14/19 09:04 Toprol Xl - PO 50 mg DAILY HONEY Administration Mupirocin 1 applic 12/14/19 22:00 Bactroban Ointment (For Decolonization) - NS 12/19/19 21:59 BID HONEY Quinapril HCl 10 mg 12/14/19 10:00 12/14/19 09:04 Accupril - PO 10 mg DAILY HONEY Administration Spironolactone 25 mg 12/14/19 10:00 12/14/19 09:04 Aldactone - PO 25 mg DAILY HONEY Administration ASSESSMENT/PLAN: Pt is a 59 y/o male with HTN (non-compliant with meds, multiple hospital admission), HFrEF (EF on admission 40-45%) with AICD, CAD s/p stent x1, HLD, ane mariel who presents via EMS following sudden onset of shortness of breath after getting out of bed. His pressure was found to be 220/110 at presentation and was placed on BiPAP for respiratory distress. #hypertensive emergency #ESHA -pt denies blurry vision, HENDERSON but does have elevated Cr 1.8 at presentation -pt was started on nitro drip for pressure with little relief, then Dr. Bass d/c'ed it and gave previous medications that were used in May admission (Toprol 25mg, spironolactone 25mg, quinapril 10mg) with little improvement (160s/110s-120s), then he recommended titratable labetolol drip -labetolol drip with goal of systolic 140-160 and diastolic above 100 in next 24 hours -echo EF 40-45%, LVH, moderate global hypokinesis of left ventricle, LA modera tely dilated, right atrium mildly dilated, mild MR, trace TR, mild AR, mild aortic root dilatation -cardiology consulted- see above -ICU consulted- accepted pt for labetolol titration and BP management #acute respiratory failure 2/2 flash pulmonary edema -required BiPAP initially at presentation, now intermittent with NC -CXR b/l consolidation/congestion -continue respiratory support for SpO2 >90 #hypokalemia -IV repletion -recheck lab #HFrEF -optimize medications -has AICD #HLD -unsure why not on statin #CAD s/p stent -ASA 81mg DVT PPx heparin BID FEN PO fluids monitor K sodium/fat/cholesterol controlled diet dispo ICU FULL CODE Visit type - Emergency Visit Emergency Visit: Yes ED Registration Date: 12/13/19 Care time: The patient presented to the Emergency Department on the above date and was hospitalized for further evaluation of their emergent condition. - New Patient This patient is new to me today: Yes Date on this admission: 12/14/19 - Critical Care Critical Care patient: No ATTENDING PHYSICIAN STATEMENT I saw and evaluated the patient. I reviewed the resident's note and discussed the case with the resident. I agree with the resident's findings and plan as documented. SUBJECTIVE: OBJECTIVE: ASSESSMENT AND PLAN:
[2019-12-14] MEDS ORDERED: PNEUMOC 13-VAL CONJ-DIP CRM/PF 0.5 ML DISP.SYRIN IM ONE (16:36)
[2019-12-14] MEDS: ASPIRIN 81 MG CHEWABLE TABLETS PO SCH (17:29)
[2019-12-14] MEDS: PANTOPRAZOLE 40 MG TABLET PO SCH (17:29)
--- NOTE | 2019-12-14 18:03 | PN ---
Teaching Attending Note Name of Resident: Daniela Lund ATTENDING PHYSICIAN STATEMENT I saw and evaluated the patient. I reviewed the resident's note and discussed the case with the resident. I agree with the resident's findings and plan as documented. SUBJECTIVE: Shortness of breath is improving. OBJECTIVE: Vital Signs Period Temp Pulse Resp BP Sys/Rosado Pulse Ox Last 24 Hr 97.1 F-98.5 F 76-96 15-24 135-210/103-129 95-100 HEART: S1S2, RRR LUNGS: Clear ABDOMEN: Soft, non-tender, non-distended, normal BS EXTREMITIES: No edema Laboratory Results - last 24 hr 12/14/19 12/14/19 12/14/19 07:32 16:30 16:30 Sodium 138 Potassium 3.1 L 3.7 Chloride 105 Carbon Dioxide 25 Anion Gap 8 BUN 18.7 H Creatinine 1.3 Est GFR (CKD-EPI)AfAm 68.74 Est GFR (CKD-EPI)NonAf 59.31 Random Glucose 116 H Calcium 8.4 L Troponin I 0.26 H Current Medications Generic Name Dose Route Start Last Admin Trade Name Freq PRN Reason Stop Dose Admin Aspirin 81 mg 12/14/19 16:15 12/14/19 17:29 Asa - PO 81 mg DAILY HONEY Administration Chlorhexidine Gluconate 1 applic 12/14/19 22:00 Hibiclens For Decolonization - TP HS HONEY Furosemide 40 mg 12/14/19 10:00 12/14/19 09:04 Lasix Injection - IVPUSH 40 mg DAILY HONEY Administration Heparin Sodium (Porcine) 5,000 unit 12/13/19 22:00 12/14/19 09:04 Heparin - SQ 5,000 unit BID HONEY Administration Labetalol HCl 1,000 mg/ Sodium 1,000 mls @ 30 mls/hr 12/14/19 14:30 12/14/19 15:24 Chloride IV 0.5 mg/min TITR HONEY 30 mls/hr Administration 0.5 MG/MIN Metoprolol Succinate 50 mg 12/14/19 10:00 12/14/19 09:04 Toprol Xl - PO 50 mg DAILY HONEY Administration Mupirocin 1 applic 12/14/19 22:00 Bactroban Ointment (For Decolonization) - NS 12/19/19 21:59 BID HONEY Pantoprazole Sodium 40 mg 12/14/19 16:15 12/14/19 17:29 Protonix - PO 40 mg DAILY HONEY Administration Pneumococcal 13-Valent Conj Vacc 0.5 ml 12/14/19 16:36 Prevnar 13 Syringe - IM 12/14/19 16:37 .ONCE ONE Quinapril HCl 10 mg 12/14/19 10:00 12/14/19 09:04 Accupril - PO 10 mg DAILY HONEY Administration Spironolactone 25 mg 12/14/19 10:00 12/14/19 09:04 Aldactone - PO 25 mg DAILY HONEY Administration ASSESSMENT AND PLAN: This is a 59 year old man with a history of HTN, hypertensive CM, chronic systolic heart failure, CAD, cardiac stent, AICD, hyperlipidemia, anemia who presented to the ED with sudden onset of SOB. 1. Hypertensive emergency - Improved - Nitroglycerin drip discontinued - Continue Accupril, Aldactone, Toprol XL, Lasix 2. Acute on chronic systolic heart failure - Improving - Continue Lasix IV, Aldactone, Accupril 3. Hypertensive cardiomyopathy with history of ventricular tachycardia - Continue Accupril, Toprol XL, Aldactone - Has AICD 4. Demand ischemia - Continue aspirin, Toprol XL
[2019-12-14] MEDS: CHLORHEXIDINE GLUCONATE 4% CLEANSER FOR DECOLONIZATION TP SCH (21:38)
[2019-12-14] MEDS: MUPIROCIN 2% TOPICAL OINTMENT FOR DECOLONIZATION NS SCH (22:55)
--- NOTE | 2019-12-15 05:35 | PN ---
Progress Note (short form) - Note Progress Note: Reviewed repeat EKG taken 12/14/19 at 23:59 Sinus rhythm, rate 80, +ectopy, normal axis and intervals, +LVH, lateral TWI and STD similar to prior EKG from 12/13/2019, no YVETTE. Cardiology has seen the patient, appreciate recommendations. I reviewed patient's serial troponins which have now downtrended to wnl. Problem List - Problems (1) Acute CHF (congestive heart failure) Code(s): I50.9 - HEART FAILURE, UNSPECIFIED (2) Acute on chronic renal failure Code(s): N17.9 - ACUTE KIDNEY FAILURE, UNSPECIFIED; N18.9 - CHRONIC KIDNEY DISEASE, UNSPECIFIED (3) Anemia Code(s): D64.9 - ANEMIA, UNSPECIFIED (4) Elevated troponin Code(s): R74.8 - ABNORMAL LEVELS OF OTHER SERUM ENZYMES (5) Lactic acidosis Code(s): E87.2 - ACIDOSIS (6) Respiratory failure Code(s): J96.90 - RESPIRATORY FAILURE, UNSP, UNSP W HYPOXIA OR HYPERCAPNIA Qualifiers: Chronicity: acute Respiratory failure complication: hypoxia Qualified Code(s): J96.01 - Acute respiratory failure with hypoxia (7) Troponin I above reference range Code(s): R74.8 - ABNORMAL LEVELS OF OTHER SERUM ENZYMES
[2019-12-15 06:33] LABS: BASO % 0.5 % (0-2.0); EOS % 2.4 % (0-4.5); HEMATOCRIT 28.6 % (35.4-49); LYMPH % 23.4 % (8-40); MCH 26.5 pg (25.7-33.7); MCHC 31.6 g/dl (32.0-35.9); MEAN PLT VOLUME 7.9 fl (7.5-11.1); MONO % 13.2 % (3.8-10.2); NEUT % 60.5 % (42.8-82.8); PLATELET COUNT 129 K/MM3 (134-434); RDW 17.1 % (11.9-15.9); WHITE BLOOD COUNT 6.4 K/mm3 (4.0-10.0)
[2019-12-15 06:56] LABS: BLOOD UREA NITROGEN 28.4 mg/dL (7-18); CALCIUM 8.3 mg/dL (8.5-10.1); CREATININE 1.8 mg/dL (0.55-1.3); PHOSPHOROUS 3.7 mg/dL (2.5-4.9); POTASSIUM 3.6 mmol/L (3.5-5.1)
[2019-12-15] MEDS ORDERED: POTASSIUM CHLORIDE TABS 20 MEQ TABLET.ER (FP) PO ONE (08:30)
[2019-12-15] MEDS ORDERED: PT OWN MED DRAWER 7, Y5N ONE (09:14)
[2019-12-15] MEDS: QUINAPRIL HCL 10 MG TABLET (FP) PO SCH (09:23)
[2019-12-15] MEDS: cloNIDine HCL 0.1 MG TABLET PO SCH ×2 (09:25→21:17)
[2019-12-15] MEDS: SPIRONOLACTONE 25 MG TABLET PO SCH (09:26)
[2019-12-15] MEDS: ASPIRIN 81 MG CHEWABLE TABLETS PO SCH (09:26)
[2019-12-15] MEDS: PANTOPRAZOLE 40 MG TABLET PO SCH (09:26)
[2019-12-15] MEDS: HEPARIN NA (PORCINE) 5,000 UNITS/ML 1ML VIAL SQ SCH ×2 (09:29→21:17)
--- NOTE | 2019-12-15 10:09 | PN ---
Progress Note, Physician Chief Complaint: HTN urgency History of Present Illness: feels well. no sob, swelling no cp no palp no syncope - Current Medication List Current Medications: Active Medications Aspirin (Asa -) 81 mg PO DAILY [facility] Last Admin: 12/15/19 09:26 Dose: 81 mg Documented by: Chlorhexidine Gluconate (Hibiclens For Decolonization -) 1 applic TP HS [facility] Last Admin: 12/14/19 21:38 Dose: 1 applic Documented by: Clonidine (Catapres -) 0.1 mg PO BID [facility] Last Admin: 12/15/19 09:25 Dose: 0.1 mg Documented by: Heparin Sodium (Porcine) (Heparin -) 5,000 unit SQ BID [facility] Last Admin: 12/15/19 09:29 Dose: 5,000 unit Documented by: Labetalol HCl 1,000 mg/ Sodium (Chloride) 1,000 mls @ 30 mls/hr IV TITR [facility] Last Infusion: 12/15/19 08:30 Dose: 0.4 mg/min, 24 mls/hr Documented by: Metoprolol Succinate (Toprol Xl -) 50 mg PO DAILY [facility] Last Admin: 12/15/19 09:26 Dose: 50 mg Documented by: Mupirocin (Bactroban Ointment (For Decolonization) -) 1 applic NS BID [facility] Stop: 12/19/19 21:59 Last Admin: 12/14/19 22:55 Dose: 1 applic Documented by: Pantoprazole Sodium (Protonix -) 40 mg PO DAILY [facility] Last Admin: 12/15/19 09:26 Dose: 40 mg Documented by: Pneumococcal 13-Valent Conj Vacc (Prevnar 13 Syringe -) 0.5 ml IM .ONCE ONE Stop: 12/14/19 16:37 Quinapril HCl (Accupril -) 10 mg PO DAILY [facility] Last Admin: 12/15/19 09:23 Dose: 10 mg Documented by: Spironolactone (Aldactone -) 25 mg PO DAILY [facility] Last Admin: 12/15/19 09:26 Dose: 25 mg Documented by: - Objective Vital Signs: Vital Signs Temperature 98.6 F 12/15/19 06:09 Pulse Rate 81 12/15/19 08:30 Respiratory Rate 21 H 12/15/19 06:09 Blood Pressure 156/122 H 12/15/19 08:30 O2 Sat by Pulse Oximetry (%) 100 12/15/19 08:25 Constitutional: Yes: Well Nourished, No Distress, Calm Cardiovascular: Yes: Regular Rate and Rhythm. No: Gallop, Murmur Respiratory: Yes: Regular. No: Accessory Muscle Use Extremities: No: Cold Edema: No Neurological: Yes: Alert, Oriented Psychiatric: No: Agitated Labs: CBC, BMP 12/15/19 05:15 12/15/19 05:15 INR, PTT INR 1.13 (0.83-1.09) H 12/13/19 08:12 Assessment/Plan Echo: mod conc LVH, mod LV dilation, mod decr EF global 40-45%. nl RV. mild AI. mild dilated aorta root. IMP: Hypertensive urgency, suspected medication non-adherence Non-ischemic CM Hypertensive cardiomyopathy with moderate LV dysfx , EF 40-45% Small thoracic aortic aneurysm Mild AR s/p ICD Equivocal TnI REC: Hypertensive urgency: -Wean nitro gtts. -Hospital records reviewed: patient was here in May with controlled BP on Toprol Xl 50, Quinapril 10 and Aldactone 25. Meds resumed here, BP improving -clonidine added here--have to assess pt's prior med compliance record--runs the risk of severe rebound HTN if clonidine lapses -incr metopr 50 qd to bid, consider change to labetalol if remains refractory -low K noted, consider renin/ros levels if safe to hold spironolactone for testing--defer to outpt setting; can also consider MR/CT of adrenals to look for solitary tumor or bilateral hyperplasia -outpt pheo workup planned -Telemetry Non-ischemic CM: -Several caths all non-obstructive per Dr Rooney recall, will have to obtain records from [facility] to see if subsequent caths have shown change -Scar on MRI w/documented VT on loop, s/p ICD HTN CM, EF moderately reduced: -Resume Toprol XL 50mg, Quinapril and Aldactone -Observe BP trend and daily BMP monitor renal fx -To consider Entresto as outpatient CKD: -baseline creat 1.4-1.7 -fluctuating close to baseline range here, observe trend. cont spirono and STELLA for now Thoracic aneurysm: -Small -Beta amber -Smoking cessation counselled here -Yearly echo surveillance as outpt ICD: -Followed at [facility] by EP Dr. Faria Mild AR: -Yearly echo, no intervention required at this time Equivocal TnI (0.1-0.2) -In setting acute CHF, CKD. Flat trend, indeterminate level, no angina = not c/w Type I OR. -Control BP, diurese -Can resume ASA 81mg daily and check fasting lipids
--- NOTE | 2019-12-15 12:12 | PN ---
<Lynda Loza - Last Filed: 12/15/19 16:40> Physical Exam: SUBJECTIVE: Patient seen and examined. No acute overnight events. Weaning labetalol gtt. OBJECTIVE: Vital Signs Period Temp Pulse Resp BP Sys/Rosado Pulse Ox Last 24 Hr 97.1 F-98.9 F 71-89 16-24 117-164/90-128 99-100 GENERAL: The patient is awake, alert, and fully oriented, in no acute distress. HEENT: NCAT. MMM. Neck supple. No JVD LUNGS: Breath sounds equal, clear to auscultation bilaterally, no wheezes, no crackles, no accessory muscle use. HEART: Regular rate and rhythm, S1, S2 without murmur, rub or gallop. ABDOMEN: Soft, nontender, nondistended, normoactive bowel sounds, no guarding. EXTREMITIES: 2+ pulses, warm, well-perfused, no edema. SKIN: Warm, dry Laboratory Results - last 24 hr 12/14/19 12/14/19 12/14/19 16:30 16:30 18:12 WBC RBC Hgb Hct MCV MCH MCHC RDW Plt Count MPV Absolute Neuts (auto) Neutrophils % Lymphocytes % Monocytes % Eosinophils % Basophils % Nucleated RBC % Sodium Potassium 3.7 Chloride Carbon Dioxide Anion Gap BUN Creatinine Est GFR (CKD-EPI)AfAm Est GFR (CKD-EPI)NonAf Random Glucose Calcium Phosphorus Magnesium Troponin I 0.26 H < 0.02 12/15/19 12/15/19 05:15 05:15 WBC 6.4 RBC 3.40 L Hgb 9.0 L Hct 28.6 L MCV 84.0 MCH 26.5 MCHC 31.6 L RDW 17.1 H Plt Count 129 L D MPV 7.9 Absolute Neuts (auto) 3.9 Neutrophils % 60.5 D Lymphocytes % 23.4 D Monocytes % 13.2 H Eosinophils % 2.4 Basophils % 0.5 Nucleated RBC % 0 Sodium 141 Potassium 3.6 Chloride 108 H Carbon Dioxide 23 Anion Gap 9 BUN 28.4 H Creatinine 1.8 H Est GFR (CKD-EPI)AfAm 46.38 Est GFR (CKD-EPI)NonAf 40.02 Random Glucose 94 Calcium 8.3 L Phosphorus 3.7 Magnesium 2.0 Troponin I Active Medications Generic Name Dose Route Start Last Admin Trade Name Freq PRN Reason Stop Dose Admin Aspirin 81 mg 12/14/19 16:15 12/15/19 09:26 Asa - PO 81 mg DAILY HONEY Administration Chlorhexidine Gluconate 1 applic 12/14/19 22:00 12/14/19 21:38 Hibiclens For Decolonization - TP 1 applic HS HONEY Administration Clonidine 0.1 mg 12/15/19 10:00 12/15/19 09:25 Catapres - PO 0.1 mg BID HONEY Administration Heparin Sodium (Porcine) 5,000 unit 12/13/19 22:00 12/15/19 09:29 Heparin - SQ 5,000 unit BID HONEY Administration Metoprolol Succinate 50 mg 12/15/19 22:00 Toprol Xl - PO BID HONEY Mupirocin 1 applic 12/14/19 22:00 12/14/19 22:55 Bactroban Ointment (For Decolonization) - NS 12/19/19 21:59 1 applic BID HONEY Administration Pantoprazole Sodium 40 mg 12/14/19 16:15 12/15/19 09:26 Protonix - PO 40 mg DAILY HONEY Administration Pneumococcal 13-Valent Conj Vacc 0.5 ml 12/14/19 16:36 Prevnar 13 Syringe - IM 12/14/19 16:37 .ONCE ONE Quinapril HCl 10 mg 12/14/19 10:00 12/15/19 09:23 Accupril - PO 10 mg DAILY HONEY Administration Spironolactone 25 mg 12/14/19 10:00 12/15/19 09:26 Aldactone - PO 25 mg DAILY HONEY Administration ASSESSMENT/PLAN: 59 y.o. M PMH HTN, hypertensive CM, chronic systolic heart failure, CAD, cardiac stent, AICD, hyperlipidemia, anemia who presented to the ED with sudden onset SOB and chest pain. #Hypertensive emergency -labetalol gtt d/c'd -PO meds initiated: toprol XL 50, quinapril 10, aldactone 25-- holding stella and aldactone pending renal recs, new onset esha -EKG sinus rhythm rate 91bpm, PAC's. prolonged qtc 553. -chest pain resolve -monitor BP closely -troponins have normalized -f/u repeat lactic (prior 5.0) -cardio following: suggests pheochromocytoma workup. -daily aspirin #Acute on chronic CHF -CXR: b/l congestive changes -BNP 3467 -echo 12/12: EF 45-45%. Moderate LVH. LV dilation. Decr LV sys function. LA mod dilation. RA mild dilation. Mild MR, trace TR. Mild ao. regurgitation, aortic root dilation. -continue IV lasix: 40mg IV daily -pulm following: Dr. Dillard -consider entresto as outpatient -O2 to maintain Spo2 >90% #ESHA -Cr 1.8 today (yesterday 1.3) -Renal consulted for lasix recs-- Dr. Vogt -holding STELLA, spironolactone f/u renal recs #Non-ischemic CM -f/u cardio records from [facility]-- pt had multiple caths -has AICD placement #PPX -DVT:heparin sq -GI: protonix 40mg P daily #FEN -no standing fluids -trend & replete lytes prn -Low fat/ chol/ Na diet #Disp -ctm on telemetry Visit type - Emergency Visit Emergency Visit: No - New Patient This patient is new to me today: Yes Date on this admission: 12/15/19 - Critical Care Critical Care patient: Yes Total Critical Care Time (in minutes): 40 Critical Care Statement: The care of this patient involved high complexity decision making to prevent further life threatening deterioration of the patient's condition and/or to evaluate & treat vital organ system(s) failure or risk of failure. ATTENDING PHYSICIAN STATEMENT I saw and evaluated the patient. I reviewed the resident's note and discussed the case with the resident. I agree with the resident's findings and plan as documented. SUBJECTIVE: OBJECTIVE: ASSESSMENT AND PLAN: <Davian Glover - Last Filed: 12/15/19 19:52> Physical Exam: SUBJECTIVE: Patient seen and examined OBJECTIVE: Vital Signs Period Temp Pulse Resp BP Sys/Rosado Pulse Ox Last 24 Hr 98.5 F-98.9 F 71-90 16-22 117-159/90-122 99-100 GENERAL: The patient is awake, alert, and fully oriented, in no acute distress. HEAD: Normal with no signs of trauma. EYES: PERRL, extraocular movements intact, sclera anicteric, conjunctiva clear. No ptosis. ENT: Ears normal, nares patent, oropharynx clear without exudates, moist mucous membranes. NECK: Trachea midline, full range of motion, supple. LUNGS: Breath sounds equal, clear to auscultation bilaterally, no wheezes, no crackles, no accessory muscle use. HEART: Regular rate and rhythm, S1, S2 without murmur, rub or gallop. ABDOMEN: Soft, nontender, nondistended, normoactive bowel sounds, no guarding, no rebound, no hepatosplenomegaly, no masses. EXTREMITIES: 2+ pulses, warm, well-perfused, no edema. NEUROLOGICAL: Cranial nerves II through XII grossly intact. Normal speech, gait not observed. PSYCH: Normal mood, normal affect. SKIN: Warm, dry, normal turgor, no rashes or lesions noted Laboratory Results - last 24 hr 12/13/19 12/15/19 12/15/19 19:00 05:15 05:15 WBC 6.4 RBC 3.40 L Hgb 9.0 L Hct 28.6 L MCV 84.0 MCH 26.5 MCHC 31.6 L RDW 17.1 H Plt Count 129 L D MPV 7.9 Absolute Neuts (auto) 3.9 Neutrophils % 60.5 D Lymphocytes % 23.4 D Monocytes % 13.2 H Eosinophils % 2.4 Basophils % 0.5 Nucleated RBC % 0 Sodium 141 Potassium 3.6 Chloride 108 H Carbon Dioxide 23 Anion Gap 9 BUN 28.4 H Creatinine 1.8 H Est GFR (CKD-EPI)AfAm 46.38 Est GFR (CKD-EPI)NonAf 40.02 Random Glucose 94 Lactic Acid Calcium 8.3 L Phosphorus 3.7 Magnesium 2.0 COVID-19 (VISHNU) Not detected 12/15/19 12:46 WBC RBC Hgb Hct MCV MCH MCHC RDW Plt Count MPV Absolute Neuts (auto) Neutrophils % Lymphocytes % Monocytes % Eosinophils % Basophils % Nucleated RBC % Sodium Potassium Chloride Carbon Dioxide Anion Gap BUN Creatinine Est GFR (CKD-EPI)AfAm Est GFR (CKD-EPI)NonAf Random Glucose Lactic Acid 4.1 H* Calcium Phosphorus Magnesium COVID-19 (VISHNU) Active Medications Generic Name Dose Route Start Last Admin Trade Name Freq PRN Reason Stop Dose Admin Aspirin 81 mg 12/14/19 16:15 12/15/19 09:26 Asa - PO 81 mg DAILY HONEY Administration Chlorhexidine Gluconate 1 applic 12/14/19 22:00 12/14/19 21:38 Hibiclens For Decolonization - TP 1 applic HS HONEY Administration Clonidine 0.1 mg 12/15/19 10:00 12/15/19 09:25 Catapres - PO 0.1 mg BID HONEY Administration Heparin Sodium (Porcine) 5,000 unit 12/13/19 22:00 12/15/19 09:29 Heparin - SQ 5,000 unit BID HONEY Administration Metoprolol Succinate 50 mg 12/15/19 22:00 Toprol Xl - PO BID HONEY Mupirocin 1 applic 12/14/19 22:00 12/15/19 13:57 Bactroban Ointment (For Decolonization) - NS 12/19/19 21:59 1 applic BID HONEY Administration Pantoprazole Sodium 40 mg 12/14/19 16:15 12/15/19 09:26 Protonix - PO 40 mg DAILY HONEY Administration Pneumococcal 13-Valent Conj Vacc 0.5 ml 12/14/19 16:36 Prevnar 13 Syringe - IM 12/14/19 16:37 .ONCE ONE Spironolactone 25 mg 12/14/19 10:00 12/15/19 09:26 Aldactone - PO 25 mg DAILY HONEY Administration ASSESSMENT/PLAN: ATTENDING PHYSICIAN STATEMENT I saw and evaluated the patient. I reviewed the resident's note and discussed the case with the resident. I agree with the resident's findings and plan as documented. Attending attestation: Patient seen and examined at bedside during my rounds. The patient's blood pressure has improved while he was on labetalol drip and it was turned off. However, the patient's blood pressure on exam at this time at 7:35 PM his blood pressure is 160s systolic over 120s diastolic. I personally have readjusted the cuff and change the cuff multiple times and his blood pressure elevation is consistent. On exam he is alert awake and oriented to person place and time. He is in good spirits. His pulse is irregular. His lungs are clear to auscultation bilaterally. Abdomen is soft nontender nondistended. He has moist oral mucosa. He has pale conjunctiva. There is no edema of the bilateral lower extremities. For the patient's hypertensive emergency continue clonidine, Toprol, and restart labetalol drip at this time. Patient was started on clonidine today 0.1 mg p.o. twice daily. Patient will likely require a pheochromocytoma work-up as an outpatient. For his acute on chronic systolic congestive heart failure exacerbation continue IV Lasix. Patient should be considered for Entresto as an outpatient as long as his renal function improves. discontinue spironolactone and his quinapril at this time as the patient's renal failure is acute. Continue DVT prophylaxis. Continue GI prophylaxis. ICU care. Rest as per resident's note above. Critical care time 36 minutes.
[2019-12-15] MEDS ORDERED: ISOSORBIDE DINITRATE 5 MG TABLET PO STA (13:25)
--- NOTE | 2019-12-15 13:50 | EKG ---
Test Reason : Blood Pressure : / mmHG Vent. Rate : 080 BPM Atrial Rate : 080 BPM P-R Int : 190 ms QRS Dur : 096 ms QT Int : 408 ms P-R-T Axes : 028 035 152 degrees QTc Int : 470 ms SINUS RHYTHM WITH PREMATURE ATRIAL COMPLEXES LEFT ATRIAL ENLARGEMENT LEFT VENTRICULAR HYPERTROPHY WITH REPOLARIZATION ABNORMALITY ABNORMAL ECG Confirmed by MD MARK, KATELYN ([id number]) on 12/15/2019 1:50:09 PM Referred By: Confirmed By:KATELYN FLORES MD
--- NOTE | 2019-12-15 13:52 | PN ---
Progress Note (short form) - Note Progress Note: PULM/CCM Patient seen & examined in the ICU. CA+OX3, NAD. Used NIPPV O/N. Pt endorses marked relief. No c/o SOB, no c/o CP. Notice LA remains elevated: 5.0 --> 4.1. Active Medications Aspirin (Asa -) 81 mg PO DAILY [facility] Last Admin: 12/15/19 09:26 Dose: 81 mg Documented by: Chlorhexidine Gluconate (Hibiclens For Decolonization -) 1 applic TP HS [facility] Last Admin: 12/14/19 21:38 Dose: 1 applic Documented by: Heparin Sodium (Porcine) (Heparin -) 5,000 unit SQ BID [facility] Last Admin: 12/15/19 09:29 Dose: 5,000 unit Documented by: Metoprolol Succinate (Toprol Xl -) 50 mg PO BID [facility] Mupirocin (Bactroban Ointment (For Decolonization) -) 1 applic NS BID [facility] Stop: 12/19/19 21:59 Last Admin: 12/15/19 13:57 Dose: 1 applic Documented by: Pantoprazole Sodium (Protonix -) 40 mg PO DAILY [facility] Last Admin: 12/15/19 09:26 Dose: 40 mg Documented by: Pneumococcal 13-Valent Conj Vacc (Prevnar 13 Syringe -) 0.5 ml IM .ONCE ONE Stop: 12/14/19 16:37 Spironolactone (Aldactone -) 25 mg PO DAILY [facility] Last Admin: 12/15/19 09:26 Dose: 25 mg Documented by: Vital Signs Period Temp Pulse Resp BP Sys/Rosado Pulse Ox Last 24 Hr 97.1 F-98.9 F 71-89 16-22 117-159/90-122 99-100 Intake & Output 12/12/19 12/13/19 12/14/19 12/15/19 23:59 23:59 23:59 23:59 Intake Total 290 554 Output Total 800 Balance -800 290 554 Weight 99.79 kg 91.762 kg 94.166 kg GEN: middle aged man in excellent shape, CA+OX3, NAD ORA Lung: CTAB Heart: RRR Abd: soft, nontender Ext: no edema CBC, BMP 12/15/19 05:15 12/15/19 05:15 INR, PTT INR 1.13 (0.83-1.09) H 12/13/19 08:12 Troponin, BNP 12/14/19 12/14/19 16:30 18:12 Troponin I 0.26 H < 0.02 RECENT STUDIES TO NOTE: TTE 12/12: EF 45-45%. Moderate LVH. LV dilation. Decr LV sys function. LA mod dilation. RA mild dilation. Mild MR, trace TR. Mild ao. EKG sinus rhythm rate 91bpm, PAC's. prolonged qtc 553. ASSESS: Hypertensive Urgency Acute on Chronic Systolic/Diastolic Heart Failure CAD cardiac stent & AICD +Troponins likely Demand Ischemia Lactic Acidosis likely from Respiratory Distress CKD HTN Hyperlipidemia Anemia PLAN: - O2 prn to keep Spo2 >90% - D/c labetalol gtt - D/c STELLA-I (quinapril 10) - Toprol XL 50 BID - Cont aldactone 25 - Start Clonidine - Daily ASA - trend & replete lytes prn - RENAL artery Duplex - Appreciate RENAL - DVT prophylaxis - PPI - clinically much improved - low fat/ chol/ Na diet - Can go to Tele - consider entresto as outpatient [facility] ICU PULM/CCM [id number]
[2019-12-15] MEDS: MUPIROCIN 2% TOPICAL OINTMENT FOR DECOLONIZATION NS SCH ×2 (13:57→21:17)
[2019-12-15 14:15] VITALS: BMI 25.2
--- NOTE | 2019-12-15 17:33 | CONSULT ---
Consult Consult Specialty:: Nephrology Reason for Consultation:: ESHA - History of Present Illness Chief Complaint: shortness of breath History of Present Illness: Pt is a 59 year old male with pmhx of chf, htn, cad, anemia and nephrolithiasis who presents to the ER with shortness of breath. He says that he went to the bathroom and they could not get up. He also fels very short of breath. He has history of HTN and does not always take his meds. He was found to be hypertensive and found to have pulm edema. He was admitted to the ICU for further care. He was found to have elevated filter tender jelly today and I was called to evaluate him. He says that his breathing is markedly improved. He denies lower ext edema. - History Source History Provided By: Patient, Medical Record - Past Medical History Cardio/Vascular: Yes: CAD (non-obstx), CHF (Chronic systolic and diastolic CHF), HTN, Other (NSVT) Pulmonary: Yes: Sleep Apnea Renal/: Yes: Renal Inusuff, Renal Calculi Psych: Yes: Depression - Alcohol/Substance Use Hx Alcohol Use: No History of Substance Use: reports: Marijuana - Smoking History Smoking history: Current every day smoker Have you smoked in the past 12 months: Yes Aproximately how many cigarettes per day: 5 - Social History Usual Living Arrangement: With Spouse ADL: Independent Occupation: currently unemployed Home Medications - Allergies Allergies/Adverse Reactions: Allergies Allergy/AdvReac Type Severity Reaction Status Date / Time adhesive tape Allergy Verified 12/13/19 07:59 - Home Medications Home Medications: Ambulatory Orders Aspirin 81 mg PO DAILY 12/14/19 Carvedilol 25 mg PO DAILY 12/14/19 Isosorbide Mononitrate [Isosorbide Mononitrate ER] 30 mg PO DAILY 12/14/19 Lisinopril/Hydrochlorothiazide [Lisinopril-Hctz 20-25 mg Tab] 20 - 25 mg PO DAILY 12/14/19 Nifedipine ER [Procardia Xl -] 90 mg PO DAILY 12/14/19 Omeprazole 40 mg PO DAILY 12/14/19 Family Medical History Family History: Denies Review of Systems - Review of Systems Constitutional: reports: Malaise Eyes: reports: No Symptoms HENT: reports: No Symptoms Neck: reports: No Symptoms Cardiovascular: reports: Shortness of Breath. denies: Edema Respiratory: reports: SOB, SOB on Exertion Gastrointestinal: reports: No Symptoms Genitourinary: reports: No Symptoms Musculoskeletal: reports: No Symptoms Integumentary: reports: No Symptoms Neurological: reports: No Symptoms Endocrine: reports: No Symptoms Hematology/Lymphatic: reports: No Symptoms Psychiatric: reports: No Symptoms Physical Exam Vital Signs: Vital Signs Temperature 98.7 F 12/15/19 16:00 Pulse Rate 90 12/15/19 16:00 Respiratory Rate 21 H 12/15/19 09:00 Blood Pressure 133/110 H 12/15/19 16:00 O2 Sat by Pulse Oximetry (%) 100 12/15/19 09:00 Constitutional: Yes: Calm Eyes: Yes: Conjunctiva Clear HENT: Yes: Atraumatic Neck: Yes: Supple Cardiovascular: Yes: S1, S2 Respiratory: Yes: On Nasal O2 Gastrointestinal: Yes: Soft Renal/: Yes: WNL Musculoskeletal: Yes: WNL Edema: No Neurological: Yes: Oriented Psychiatric: Yes: Oriented Labs: CBC, BMP 12/15/19 05:15 12/15/19 05:15 Laboratory Tests 12/13/19 12/14/19 12/15/19 08:12 07:32 05:15 Creatinine 1.3 1.8 H Lactic Acid 5.0 H* 12/15/19 12:46 Creatinine Lactic Acid 4.1 H* Imaging - Results Chest X-ray: Report Reviewed Assessment/Plan Current Medications Generic Name Dose Route Start Last Admin Trade Name Freq PRN Reason Stop Dose Admin Aspirin 81 mg 12/14/19 16:15 12/15/19 09:26 Asa - PO 81 mg DAILY HONEY Administration Chlorhexidine Gluconate 1 applic 12/14/19 22:00 12/14/19 21:38 Hibiclens For Decolonization - TP 1 applic HS HONEY Administration Clonidine 0.1 mg 12/15/19 10:00 12/15/19 09:25 Catapres - PO 0.1 mg BID HONEY Administration Heparin Sodium (Porcine) 5,000 unit 12/13/19 22:00 12/15/19 09:29 Heparin - SQ 5,000 unit BID HONEY Administration Metoprolol Succinate 50 mg 12/15/19 22:00 Toprol Xl - PO BID HONEY Mupirocin 1 applic 12/14/19 22:00 12/15/19 13:57 Bactroban Ointment (For Decolonization) - NS 12/19/19 21:59 1 applic BID HONEY Administration Pantoprazole Sodium 40 mg 12/14/19 16:15 12/15/19 09:26 Protonix - PO 40 mg DAILY HONEY Administration Pneumococcal 13-Valent Conj Vacc 0.5 ml 12/14/19 16:36 Prevnar 13 Syringe - IM 12/14/19 16:37 .ONCE ONE Spironolactone 25 mg 12/14/19 10:00 12/15/19 09:26 Aldactone - PO 25 mg DAILY HONEY Administration Impression 1. ESHA 2. htn 3. chf 4. cad 5. anemia 6. nephrolithiasis Plan - check ua - repeat cxr in am - check renal ultrasound - hold juan carlos as filter tender jelly rising - cardio input appreciated - monitor pulse ox - bp is improving - cont ICU care - discussed with ICU team - avoid nsiads - 2 grams sodium diet - cont to monitor bp closely
[2019-12-15] MEDS ORDERED: LABETALOL HCL INJECTION 1,000 MG in SODIUM CHLORIDE 800 ML IV SCH (20:00)
[2019-12-15] MEDS: CHLORHEXIDINE GLUCONATE 4% CLEANSER FOR DECOLONIZATION TP SCH (21:17)
[2019-12-15 23:37] LABS: PH,URINE 5.5 (5.0-8.0); URINE APPEARANCE Clear; URINE BILIRUBIN Negative (NEGATIVE); URINE COLOR Yellow; URINE GLUCOSE (UA) Negative (NEGATIVE); URINE KETONE Negative (NEGATIVE); URINE LEUK ESTERASE Negative (NEGATIVE); URINE NITRITE Negative (NEGATIVE); URINE PROTEIN 2+ (NEGATIVE); URINE UROBILINOGEN 0.2 mg/dL (0.2-1.0)
[2019-12-15 23:49] LABS: EPI CELLS 91.8 /uL (0-25.1); HYALINE CASTS 0.77 /uL (0-3.1); URINE RBC 3378.6 /uL (0-23.9); URINE WBC 160.7 /uL (0-25.8)
[2019-12-15 23:50] LABS: URINE BACTERIA 97.5 /uL (0-1359)
[2019-12-16 06:47] LABS: ALBUMIN 2.8 g/dl (3.4-5.0); BILIRUBIN,TOTAL 0.9 mg/dL (0.2-1); BLOOD UREA NITROGEN 31.2 mg/dL (7-18); CALCIUM 8.2 mg/dL (8.5-10.1); CREATININE 1.7 mg/dL (0.55-1.3); MAGNESIUM 2.1 mg/dL (1.8-2.4); POTASSIUM 4.2 mmol/L (3.5-5.1); TOT PROT 6.3 g/dl (6.4-8.2)
[2019-12-16 07:11] LABS: HEMATOCRIT 27.7 % (35.4-49); HEMOGLOBIN 8.7 GM/dL (11.7-16.9); MCH 26.5 pg (25.7-33.7); MCHC 31.3 g/dl (32.0-35.9); MEAN CELL VOLUME 84.4 fl (80-96); MEAN PLT VOLUME 8.3 fl (7.5-11.1); PLATELET COUNT 133 K/MM3 (134-434); RBC 3.28 M/mm3 (4.00-5.60); WHITE BLOOD COUNT 5.9 K/mm3 (4.0-10.0)
[2019-12-16] MEDS ORDERED: cloNIDine HCL 0.1 MG TABLET PO ONE (08:35)
--- NOTE | 2019-12-16 08:49 | PN ---
Progress Note (short form) - Note Progress Note: PULM/CCM Patient seen & examined in the ICU. CA+OX3, NAD. Used NIPPV O/N. No c/o SOB, no c/o CP. Active Medications Aspirin (Asa -) 81 mg PO DAILY [facility] Last Admin: 12/16/19 10:20 Dose: 81 mg Documented by: Chlorhexidine Gluconate (Hibiclens For Decolonization -) 1 applic TP HS [facility] Last Admin: 12/15/19 21:17 Dose: 1 applic Documented by: Heparin Sodium (Porcine) (Heparin -) 5,000 unit SQ BID [facility] Last Admin: 12/16/19 10:19 Dose: 5,000 unit Documented by: Labetalol HCl 1,000 mg/ Sodium (Chloride) 1,000 mls @ 30 mls/hr IV TITR [facility] Labetalol HCl (Normodyne -) 300 mg PO BID [facility] Last Admin: 12/16/19 10:15 Dose: 300 mg Documented by: Mupirocin (Bactroban Ointment (For Decolonization) -) 1 applic NS BID [facility] Stop: 12/19/19 21:59 Last Admin: 12/16/19 10:20 Dose: 1 applic Documented by: Nifedipine (Procardia Xl -) 30 mg PO BID [facility] Last Admin: 12/16/19 10:20 Dose: 30 mg Documented by: Pantoprazole Sodium (Protonix -) 40 mg PO DAILY [facility] Last Admin: 12/16/19 10:20 Dose: 40 mg Documented by: Spironolactone (Aldactone -) 25 mg PO DAILY [facility] Last Admin: 12/15/19 09:26 Dose: 25 mg Documented by: Vital Signs Period Temp Pulse Resp BP Sys/Rosado Pulse Ox Last 24 Hr 98.4 F-98.7 F 73-90 15-20 130-162/90-116 100-100 Intake & Output 12/13/19 12/14/19 12/15/19 12/16/19 23:59 23:59 23:59 23:59 Intake Total 290 604 500 Output Total 800 Balance -800 290 604 500 Weight 99.79 kg 91.762 kg 93.894 kg 93.894 kg GEN: middle aged man in excellent shape, CA+OX3, NAD ORA Lung: CTAB Heart: RRR Abd: soft, nontender Ext: no edema CBC, BMP 12/16/19 05:20 12/16/19 05:20 ASSESS: Hypertensive Urgency Acute on Chronic Systolic/Diastolic Heart Failure CAD cardiac stent & AICD +Troponins likely Demand Ischemia Lactic Acidosis likely from Respiratory Distress CKD HTN Hyperlipidemia Anemia PLAN: - O2 prn to keep Spo2 >90% - D/c labetalol gtt - D/c STELLA-I (quinapril 10) - Toprol XL 50 BID - Cont aldactone 25 - Clonidine 0.1 mg additional dose given for hypertension - Appreciate cardiology recs, as per cards no clonidine due to possible rebound hypertension, patient started on Nifedipine and labetalol PO - Daily ASA - trend & replete lytes prn - RENAL artery Duplex - Appreciate RENAL - DVT prophylaxis - PPI - low fat/ chol/ Na diet - Can go to Tele - consider entresto as outpatient [facility] ICU PULM/CCM [id number]
--- NOTE | 2019-12-16 09:56 | PN ---
Progress Note, Physician Chief Complaint: HTN urgency History of Present Illness: denies sob, orthopnea no swelling no cp no syncope - Current Medication List Current Medications: Active Medications Aspirin (Asa -) 81 mg PO DAILY [facility] Last Admin: 12/15/19 09:26 Dose: 81 mg Documented by: Chlorhexidine Gluconate (Hibiclens For Decolonization -) 1 applic TP HS [facility] Last Admin: 12/15/19 21:17 Dose: 1 applic Documented by: Clonidine (Catapres -) 0.1 mg PO BID [facility] Heparin Sodium (Porcine) (Heparin -) 5,000 unit SQ BID [facility] Last Admin: 12/15/19 21:17 Dose: 5,000 unit Documented by: Labetalol HCl 1,000 mg/ Sodium (Chloride) 1,000 mls @ 30 mls/hr IV TITR [facility] Metoprolol Succinate (Toprol Xl -) 50 mg PO BID [facility] Last Admin: 12/15/19 21:17 Dose: 50 mg Documented by: Mupirocin (Bactroban Ointment (For Decolonization) -) 1 applic NS BID [facility] Stop: 12/19/19 21:59 Last Admin: 12/15/19 21:17 Dose: 1 applic Documented by: Pantoprazole Sodium (Protonix -) 40 mg PO DAILY [facility] Last Admin: 12/15/19 09:26 Dose: 40 mg Documented by: Pneumococcal 13-Valent Conj Vacc (Prevnar 13 Syringe -) 0.5 ml IM .ONCE ONE Stop: 12/14/19 16:37 Spironolactone (Aldactone -) 25 mg PO DAILY [facility] Last Admin: 12/15/19 09:26 Dose: 25 mg Documented by: - Objective Vital Signs: Vital Signs Temperature 98.6 F 12/16/19 08:00 Pulse Rate 85 12/16/19 08:00 Respiratory Rate 19 12/16/19 08:57 Blood Pressure 153/101 H 12/16/19 08:00 O2 Sat by Pulse Oximetry (%) 100 12/16/19 08:57 Constitutional: Yes: Well Nourished, No Distress, Calm Cardiovascular: Yes: Regular Rate and Rhythm Respiratory: Yes: Regular. No: Accessory Muscle Use Musculoskeletal: No: Joint Swelling Edema: No Neurological: Yes: Alert, Oriented Psychiatric: No: Agitated Labs: CBC, BMP 12/16/19 05:20 12/16/19 05:20 INR, PTT INR 1.13 (0.83-1.09) H 12/13/19 08:12 Assessment/Plan Echo: mod conc LVH, mod LV dilation, mod decr EF global 40-45%. nl RV. mild AI. mild dilated aorta root. tele: NSR; NSVT runs max 13 beats IMP: Hypertensive urgency, suspected medication non-adherence Non-ischemic CM Hypertensive cardiomyopathy with moderate LV dysfx , EF 40-45% Small thoracic aortic aneurysm Mild AR s/p ICD Equivocal TnI REC: Hypertensive urgency: -Wean nitro gtts. -Hospital records reviewed: patient was here in May with controlled BP on Toprol Xl 50, Quinapril 10 and Aldactone 25. Meds resumed here, BP improving -note: disc'd with dr walters who knows pt from prior practice--med adherence pattern is poor--would not use clonidine here given his risk for severe rebound HTN crisis when med lapses. -STELLA held for ESHA, ? can resume in 24 hrs if creat remains stable (will await renal recs on this) -running 140s-150s/100-110: change metoprolol to labetalol BID, add nifedipine 30 BID -low K noted, consider renin/ros levels if safe to hold spironolactone x several weeks for testing--defer to outpt setting; can also consider MR/CT of adrenals to look for solitary tumor or bilateral hyperplasia if pt follows up and would consider surgical approach -outpt pheo workup planned -Telemetry Non-ischemic CM (sec to HTN), EF 40-45%, s/p ICD: -Several caths all non-obstructive per Dr Walters recall, will have to obtain records from [facility] to see if subsequent caths have shown change -Scar on MRI w/documented VT on loop, s/p ICD -CXR with patchy bilat lower lobe interstitial infiltrates, no vascular engorgement or effusions--? mild (interstitial) pulm edema. creat up, pt asymptomatic--deferring lasix -K/Mg to > 4/2 -bb (labetalol, for BP control) -STELLA on hold--reconsider depending on renal fxn behavior -to consider Entresto as outpatient CKD: -baseline creat 1.4-1.7 -fluctuating close to baseline range here, observe trend. cont spirono and STELLA for now Thoracic aneurysm: -Small -Beta amber -Smoking cessation counselled here -Yearly echo surveillance as outpt ICD: -Followed at [facility] by EP Dr. Faria Mild AR: -Yearly echo, no intervention required at this time Equivocal TnI (0.1-0.2) -In setting acute CHF, CKD. Flat trend, indeterminate level, no angina = not c/w Type I [place]. -Control BP, diurese -Can resume ASA 81mg daily and check fasting lipids
[2019-12-16] MEDS ORDERED: LABETALOL HCL 100 MG TABLET (FP) PO SCH (10:00)
[2019-12-16] MEDS ORDERED: NIFEdipine E.R. 30 MG TABLET PO SCH (10:00)
[2019-12-16] MEDS: HEPARIN NA (PORCINE) 5,000 UNITS/ML 1ML VIAL SQ SCH ×2 (10:19→22:28)
[2019-12-16] MEDS: MUPIROCIN 2% TOPICAL OINTMENT FOR DECOLONIZATION NS SCH (10:20)
[2019-12-16] MEDS: PANTOPRAZOLE 40 MG TABLET PO SCH (10:20)
[2019-12-16] MEDS: ASPIRIN 81 MG CHEWABLE TABLETS PO SCH (10:20)
--- NOTE | 2019-12-16 12:39 | PN ---
Progress Note, Physician History of Present Illness: Pt seen and examined at bedside. He is awake and alert. He denies shortness of breath. - Current Medication List Current Medications: Active Medications Aspirin (Asa -) 81 mg PO DAILY [facility] Heparin Sodium (Porcine) (Heparin -) 5,000 unit SQ BID [facility] Labetalol HCl (Normodyne -) 300 mg PO BID [facility] Nifedipine (Procardia Xl -) 30 mg PO BID [facility] Pantoprazole Sodium (Protonix -) 40 mg PO DAILY [facility] Spironolactone (Aldactone -) 25 mg PO DAILY [facility] - Objective Vital Signs: Vital Signs Temperature 98.6 F 12/16/19 08:00 Pulse Rate 72 12/16/19 10:00 Respiratory Rate 19 12/16/19 10:00 Blood Pressure 147/106 H 12/16/19 10:00 O2 Sat by Pulse Oximetry (%) 100 12/16/19 08:57 Constitutional: Yes: Calm Eyes: Yes: Conjunctiva Clear HENT: Yes: Atraumatic Neck: Yes: Supple Cardiovascular: Yes: S1, S2 Respiratory: Yes: On Nasal O2 Gastrointestinal: Yes: Soft Genitourinary: Yes: Rubio Present Edema: No Neurological: Yes: Oriented Psychiatric: Yes: Oriented Labs: CBC, BMP 12/16/19 05:20 12/16/19 05:20 INR, PTT INR 1.13 (0.83-1.09) H 12/13/19 08:12 Assessment/Plan Current Medications Generic Name Dose Route Start Last Admin Trade Name Freq PRN Reason Stop Dose Admin Aspirin 81 mg 12/17/19 10:00 Asa - PO DAILY [facility] Heparin Sodium (Porcine) 5,000 unit 12/16/19 22:00 Heparin - SQ BID [facility] Labetalol HCl 300 mg 12/16/19 22:00 Normodyne - PO BID [facility] Nifedipine 30 mg 12/16/19 22:00 Procardia Xl - PO BID [facility] Pantoprazole Sodium 40 mg 12/17/19 10:00 Protonix - PO DAILY [facility] Spironolactone 25 mg 12/17/19 10:00 Aldactone - PO DAILY [facility] Laboratory Tests 12/15/19 23:00 Urine Protein 2+ H Urine Blood 3+ H Impression 1. ESHA 2. htn 3. chf 4. cad 5. anemia 6. nephrolithiasis Plan - renal function improving - juan carlos on hold for now - agree with avoiding clonidine, kg with hx of non compliance - cont labetolol and procardia, monitor bp - cont aldactone for now - renal ultrasound when possible - cont ICU care - discussed with ICU team - avoid nsiads - 2 grams sodium diet - cont to monitor bp closely
--- NOTE | 2019-12-16 13:21 | PN ---
<Lynda Loza - Last Filed: 12/16/19 15:55> Physical Exam: SUBJECTIVE: Patient seen and examined. No acute overnight events. BP remains elevated. Labetalol gtt was d/c'd yesterday evening. This morning BP's more controlled, most recent 140s/ 100s. Transitioned to PO meds. Patient denies chest pain/ visual changes/ diaphoresis/ lightheadedness/ dizziness/ sob. OBJECTIVE: Vital Signs Period Temp Pulse Resp BP Sys/Rosado Pulse Ox Last 24 Hr 98.4 F-98.7 F 72-90 15-20 130-162/98-116 100-100 GENERAL: The patient is awake, alert, and fully oriented, in no acute distress. HEENT: NCAT. MMM. No JVD LUNGS: Breath sounds equal, CTABL, no wheezes, no crackles, no accessory muscle use. HEART: Regular rate and rhythm, S1, S2 without murmur, rub or gallop. ABDOMEN: Soft, nontender, nondistended, + bowel sounds, no guarding. EXTREMITIES: 2+ pulses, warm, well-perfused, no edema. SKIN: Warm, dry Laboratory Results - last 24 hr 12/13/19 12/15/19 12/15/19 19:00 12:46 23:00 WBC RBC Hgb Hct MCV MCH MCHC RDW Plt Count MPV Sodium Potassium Chloride Carbon Dioxide Anion Gap BUN Creatinine Est GFR (CKD-EPI)AfAm Est GFR (CKD-EPI)NonAf Random Glucose Lactic Acid 4.1 H* Calcium Phosphorus Magnesium Total Bilirubin AST ALT Alkaline Phosphatase B-Natriuretic Peptide Total Protein Albumin Urine Color Yellow Urine Appearance Clear Urine pH 5.5 Ur Specific [place] 1.025 Urine Protein 2+ H Urine Glucose (UA) Negative Urine Ketones Negative Urine Blood 3+ H Urine Nitrite Negative Urine Bilirubin Negative Urine Urobilinogen 0.2 Ur Leukocyte Esterase Negative Urine WBC (Auto) 160.7 Urine RBC (Auto) 3378.6 Urine Casts (Auto) 0.77 U Epithel Cells (Auto) 91.8 U Sm Round Cell (Auto) None Urine Bacteria (Auto) 97.5 Ur Random Creatinine Ur Random Sodium Ur Random Potassium Ur Random Chloride COVID-19 (VISHNU) Not detected 12/15/19 12/16/19 12/16/19 23:00 05:20 05:20 WBC 5.9 RBC 3.28 L Hgb 8.7 L Hct 27.7 L MCV 84.4 MCH 26.5 MCHC 31.3 L RDW 17.0 H Plt Count 133 L MPV 8.3 Sodium 141 Potassium 4.2 Chloride 110 H Carbon Dioxide 24 Anion Gap 7 L BUN 31.2 H Creatinine 1.7 H Est GFR (CKD-EPI)AfAm 49.70 Est GFR (CKD-EPI)NonAf 42.88 Random Glucose 89 Lactic Acid Calcium 8.2 L Phosphorus 3.0 Magnesium 2.1 Total Bilirubin 0.9 AST 14 L ALT 27 Alkaline Phosphatase 79 B-Natriuretic Peptide Total Protein 6.3 L Albumin 2.8 L Urine Color Urine Appearance Urine pH Ur Specific [place] Urine Protein Urine Glucose (UA) Urine Ketones Urine Blood Urine Nitrite Urine Bilirubin Urine Urobilinogen Ur Leukocyte Esterase Urine WBC (Auto) Urine RBC (Auto) Urine Casts (Auto) U Epithel Cells (Auto) U Sm Round Cell (Auto) Urine Bacteria (Auto) Ur Random Creatinine 279.0 H Ur Random Sodium 34 L Ur Random Potassium 38.0 Ur Random Chloride < 11 L COVID-19 (VISHNU) 12/16/19 12/16/19 05:20 05:20 WBC RBC Hgb Hct MCV MCH MCHC RDW Plt Count MPV Sodium Potassium Chloride Carbon Dioxide Anion Gap BUN Creatinine Est GFR (CKD-EPI)AfAm Est GFR (CKD-EPI)NonAf Random Glucose Lactic Acid 1.0 Calcium Phosphorus Magnesium Total Bilirubin AST ALT Alkaline Phosphatase B-Natriuretic Peptide 2407.3 H Total Protein Albumin Urine Color Urine Appearance Urine pH Ur Specific [place] Urine Protein Urine Glucose (UA) Urine Ketones Urine Blood Urine Nitrite Urine Bilirubin Urine Urobilinogen Ur Leukocyte Esterase Urine WBC (Auto) Urine RBC (Auto) Urine Casts (Auto) U Epithel Cells (Auto) U Sm Round Cell (Auto) Urine Bacteria (Auto) Ur Random Creatinine Ur Random Sodium Ur Random Potassium Ur Random Chloride COVID-19 (VISHNU) Active Medications Generic Name Dose Route Start Last Admin Trade Name Freq PRN Reason Stop Dose Admin Aspirin 81 mg 12/17/19 10:00 Asa - PO DAILY [facility] Heparin Sodium (Porcine) 5,000 unit 12/16/19 22:00 Heparin - SQ BID [facility] Labetalol HCl 300 mg 12/16/19 22:00 Normodyne - PO BID [facility] Nifedipine 30 mg 12/16/19 22:00 Procardia Xl - PO BID [facility] Pantoprazole Sodium 40 mg 12/17/19 10:00 Protonix - PO DAILY [facility] Spironolactone 25 mg 12/17/19 10:00 Aldactone - PO DAILY [facility] ASSESSMENT/PLAN: 59 y.o. M PMH HTN, hypertensive CM, chronic systolic heart failure, CAD, cardiac stent, AICD, hyperlipidemia, anemia who presented to the ED with sudden onset SOB and chest pain. #Hypertensive emergency -labetalol gtt d/c'd -PO meds initiated: changed toprol to labetalol 300mg BID, added nifedipine 30mg BID. Overnight clonidine was started; this morning we d/c'd to avoid rebound HTN. -holding ACEi (quinapril) 2/2 esha, f/u renal recs to resume -EKG sinus rhythm rate 91bpm, PAC's. prolonged qtc 553. -chest pain resolved -monitor BP closely -troponins have normalized -repeat lactic WNL -cardio following: suggests pheochromocytoma workup as outpatient. -daily aspirin #Acute on chronic CHF -CXR: b/l congestive changes -BNP 3467 -echo 12/12: EF 45-45%. Moderate LVH. LV dilation. Decr LV sys function. LA mod dilation. RA mild dilation. Mild MR, trace TR. Mild ao. regurgitation, aortic root dilation. -lasix d/c'd; assess clinical status for need -pulm following: Dr. Dillard -consider entresto as outpatient -O2 to maintain Spo2 >90% #ESHA -Cr 1.7 today (yesterday 1.8)- resolvng -Renal Dr. Vogt following -holding STELLA, spironolactone f/u renal recs #Non-ischemic CM -f/u cardio records from [facility]-- pt had multiple caths -has AICD placement #PPX -DVT:heparin sq -GI: protonix 40mg P daily #FEN -no standing fluids -trend & replete lytes prn -Low fat/ chol/ Na diet #Disp -ctm on telemetry Visit type - Emergency Visit Emergency Visit: No - New Patient This patient is new to me today: No - Critical Care Critical Care patient: Yes Total Critical Care Time (in minutes): 37 Critical Care Statement: The care of this patient involved high complexity decision making to prevent further life threatening deterioration of the patient's condition and/or to evaluate & treat vital organ system(s) failure or risk of failure. ATTENDING PHYSICIAN STATEMENT I saw and evaluated the patient. I reviewed the resident's note and discussed the case with the resident. I agree with the resident's findings and plan as documented. SUBJECTIVE: OBJECTIVE: ASSESSMENT AND PLAN: <Davian Glover - Last Filed: 12/16/19 20:30> Physical Exam: SUBJECTIVE: Patient seen and examined OBJECTIVE: Vital Signs Period Temp Pulse Resp BP Sys/Rosado Pulse Ox Last 24 Hr 98.4 F-98.7 F 68-85 15-20 130-169/98-130 100-100 GENERAL: The patient is awake, alert, and fully oriented, in no acute distress. HEAD: Normal with no signs of trauma. EYES: PERRL, extraocular movements intact, sclera anicteric, conjunctiva clear. No ptosis. ENT: Ears normal, nares patent, oropharynx clear without exudates, moist mucous membranes. NECK: Trachea midline, full range of motion, supple. LUNGS: Breath sounds equal, clear to auscultation bilaterally, no wheezes, no crackles, no accessory muscle use. HEART: Regular rate and rhythm, S1, S2 without murmur, rub or gallop. ABDOMEN: Soft, nontender, nondistended, normoactive bowel sounds, no guarding, no rebound, no hepatosplenomegaly, no masses. EXTREMITIES: 2+ pulses, warm, well-perfused, no edema. NEUROLOGICAL: Cranial nerves II through XII grossly intact. Normal speech, gait not observed. PSYCH: Normal mood, normal affect. SKIN: Warm, dry, normal turgor, no rashes or lesions noted Laboratory Results - last 24 hr 12/15/19 12/15/19 12/16/19 23:00 23:00 05:20 WBC 5.9 RBC 3.28 L Hgb 8.7 L Hct 27.7 L MCV 84.4 MCH 26.5 MCHC 31.3 L RDW 17.0 H Plt Count 133 L MPV 8.3 Sodium Potassium Chloride Carbon Dioxide Anion Gap BUN Creatinine Est GFR (CKD-EPI)AfAm Est GFR (CKD-EPI)NonAf Random Glucose Lactic Acid Calcium Phosphorus Magnesium Total Bilirubin AST ALT Alkaline Phosphatase B-Natriuretic Peptide Total Protein Albumin Urine Color Yellow Urine Appearance Clear Urine pH 5.5 Ur Specific [place] 1.025 Urine Protein 2+ H Urine Glucose (UA) Negative Urine Ketones Negative Urine Blood 3+ H Urine Nitrite Negative Urine Bilirubin Negative Urine Urobilinogen 0.2 Ur Leukocyte Esterase Negative Urine WBC (Auto) 160.7 Urine RBC (Auto) 3378.6 Urine Casts (Auto) 0.77 U Epithel Cells (Auto) 91.8 U Sm Round Cell (Auto) None Urine Bacteria (Auto) 97.5 Ur Random Creatinine 279.0 H Ur Random Sodium 34 L Ur Random Potassium 38.0 Ur Random Chloride < 11 L 12/16/19 12/16/19 12/16/19 05:20 05:20 05:20 WBC RBC Hgb Hct MCV MCH MCHC RDW Plt Count MPV Sodium 141 Potassium 4.2 Chloride 110 H Carbon Dioxide 24 Anion Gap 7 L BUN 31.2 H Creatinine 1.7 H Est GFR (CKD-EPI)AfAm 49.70 Est GFR (CKD-EPI)NonAf 42.88 Random Glucose 89 Lactic Acid 1.0 Calcium 8.2 L Phosphorus 3.0 Magnesium 2.1 Total Bilirubin 0.9 AST 14 L ALT 27 Alkaline Phosphatase 79 B-Natriuretic Peptide 2407.3 H Total Protein 6.3 L Albumin 2.8 L Urine Color Urine Appearance Urine pH Ur Specific [place] Urine Protein Urine Glucose (UA) Urine Ketones Urine Blood Urine Nitrite Urine Bilirubin Urine Urobilinogen Ur Leukocyte Esterase Urine WBC (Auto) Urine RBC (Auto) Urine Casts (Auto) U Epithel Cells (Auto) U Sm Round Cell (Auto) Urine Bacteria (Auto) Ur Random Creatinine Ur Random Sodium Ur Random Potassium Ur Random Chloride Active Medications Generic Name Dose Route Start Last Admin Trade Name Freq PRN Reason Stop Dose Admin Aspirin 81 mg 12/17/19 10:00 Asa - PO DAILY [facility] Heparin Sodium (Porcine) 5,000 unit 12/16/19 22:00 Heparin - SQ BID [facility] Labetalol HCl 300 mg 12/16/19 22:00 Normodyne - PO BID [facility] Nifedipine 30 mg 12/16/19 22:00 Procardia Xl - PO BID [facility] Pantoprazole Sodium 40 mg 12/17/19 10:00 Protonix - PO DAILY [facility] Spironolactone 25 mg 12/17/19 10:00 Aldactone - PO DAILY [facility] ASSESSMENT/PLAN: ATTENDING PHYSICIAN STATEMENT I saw and evaluated the patient. I reviewed the resident's note and discussed the case with the resident. I agree with the resident's findings and plan as documented. Attending attestation: Patient seen and examined at bedside during my rounds. The patient's blood pressure has improved labetalol gtt never resumed last night by RN. BP improving. DIastolic BP still high. narrow pulse pressure. On exam he is alert awake and oriented to person place and time. He is in good spirits. His pulse is irregular. His lungs are clear to auscultation bilaterally. Abdomen is soft nontender nondistended. He has moist oral mucosa. He has pale conjunctiva. There is no edema of the bilateral lower extremities. For the patient's hypertensive emergency continue hold clonidine. Agree with avoiding given history of non conpliance. Patient will require a pheochromocytoma work-up as an outpatient. For his acute on chronic systolic congestive heart failure exacerbation continue IV Lasix. Patient should be considered for Entresto as an outpatient as long as his renal function improves. continue spironolactone aldactone and labetalol and hold quinapril at this time. Creatinine improving today and is now 1.7. Continue DVT prophylaxis. Continue GI prophylaxis. Can transfer out of ICU to telemetry. Patient is currently an active smoker and I have counseled him on the importance of discontinuing smoking cigarettes. Risks of continuing to smoke were explained as well as the benefits of discontinuing smoking. Rest as per resident's note above. Critical care time 35 minutes.
[2019-12-16] MEDS ORDERED: cloNIDine HCL 0.1 MG TABLET PO SCH (22:00)
[2019-12-16] MEDS: NIFEdipine E.R. 30 MG TABLET PO SCH (22:27)
[2019-12-16] MEDS: LABETALOL HCL 100 MG TABLET (FP) PO SCH (22:27)
[2019-12-17 06:52] LABS: BASO % 0.9 % (0-2.0); EOS % 4.9 % (0-4.5); HEMATOCRIT 28.4 % (35.4-49); HEMOGLOBIN 8.9 GM/dL (11.7-16.9); LYMPH % 27.5 % (8-40); MCH 26.6 pg (25.7-33.7); MCHC 31.1 g/dl (32.0-35.9); MEAN CELL VOLUME 85.4 fl (80-96); MEAN PLT VOLUME 8.1 fl (7.5-11.1); MONO % 14.2 % (3.8-10.2); NEUT % 52.5 % (42.8-82.8); PLATELET COUNT 139 K/MM3 (134-434); RBC 3.33 M/mm3 (4.00-5.60); RDW 17.2 % (11.9-15.9); WHITE BLOOD COUNT 5.3 K/mm3 (4.0-10.0)
[2019-12-17 07:28] LABS: BILIRUBIN,TOTAL 1.1 mg/dL (0.2-1); BLOOD UREA NITROGEN 29.4 mg/dL (7-18); CALCIUM 8.4 mg/dL (8.5-10.1); CREATININE 1.6 mg/dL (0.55-1.3); MAGNESIUM 2.1 mg/dL (1.8-2.4); PHOSPHOROUS 3.2 mg/dL (2.5-4.9); TOT PROT 6.5 g/dl (6.4-8.2)
[2019-12-17] MEDS: SPIRONOLACTONE 25 MG TABLET PO SCH (09:25)
[2019-12-17] MEDS: ASPIRIN 81 MG CHEWABLE TABLETS PO SCH (09:25)
[2019-12-17] MEDS: PANTOPRAZOLE 40 MG TABLET PO SCH (09:26)
[2019-12-17] MEDS: LABETALOL HCL 100 MG TABLET (FP) PO SCH ×2 (09:26→21:14)
[2019-12-17] MEDS: HEPARIN NA (PORCINE) 5,000 UNITS/ML 1ML VIAL SQ SCH ×2 (09:26→21:14)
[2019-12-17] MEDS: NIFEdipine E.R. 30 MG TABLET PO SCH ×2 (09:26→21:14)
--- NOTE | 2019-12-17 11:45 | PN ---
Progress Note (short form) - Note Progress Note: Chief Complaint: HTN urgency History of Present Illness: denies sob, orthopnea no swelling no cp no syncope Current Medications Generic Name Dose Route Start Last Admin Trade Name Henrik PRN Reason Stop Dose Admin Aspirin 81 mg 12/17/19 10:00 12/17/19 09:25 Asa - PO 81 mg DAILY [facility] Administration Heparin Sodium (Porcine) 5,000 unit 12/16/19 22:00 12/17/19 09:26 Heparin - SQ 5,000 unit BID [facility] Administration Labetalol HCl 300 mg 12/16/19 22:00 12/17/19 09:26 Normodyne - PO 300 mg BID [facility] Administration Nifedipine 30 mg 12/16/19 22:00 12/17/19 09:26 Procardia Xl - PO 30 mg BID [facility] Administration Pantoprazole Sodium 40 mg 12/17/19 10:00 12/17/19 09:26 Protonix - PO 40 mg DAILY [facility] Administration Spironolactone 25 mg 12/17/19 10:00 12/17/19 09:25 Aldactone - PO 25 mg DAILY [facility] Administration Vital Signs Period Temp Pulse Resp BP Sys/Rosado Pulse Ox Last 24 Hr 97.8 F-98.7 F 68-81 14-18 125-169/90-130 100 Constitutional: Yes: Well Nourished, No Distress, Calm Cardiovascular: Yes: Regular Rate and Rhythm Respiratory: Yes: Regular. No: Accessory Muscle Use Musculoskeletal: No: Joint Swelling Edema: No Neurological: Yes: Alert, Oriented Psychiatric: No: Agitated Labs: CBC, BMP 12/17/19 05:52 12/17/19 05:52 Assessment/Plan Echo: mod conc LVH, mod LV dilation, mod decr EF global 40-45%. nl RV. mild AI. mild dilated aorta root. tele: sr IMP: Hypertensive urgency, suspected medication non-adherence Non-ischemic CM Hypertensive cardiomyopathy with moderate LV dysfx , EF 40-45% Small thoracic aortic aneurysm Mild AR s/p ICD Equivocal TnI REC: Hypertensive urgency: -off nitro gtt -Hospital records reviewed: patient was here in May with controlled BP on Toprol Xl 50, Quinapril 10 and Aldactone 25. Meds resumed here, BP improving -note: disc'd with dr walters who knows pt from prior practice--med adherence pattern is poor--would not use clonidine here given his risk for se sangeeta rebound HTN crisis when med lapses. -STELLA held for ESHA, ? can resume in 24 hrs if creat remains stable (will await renal recs on this) -running 140s-150s/100-110: change metoprolol to labetalol BID, add nifedipine 30 BID -low K noted, consider renin/ros levels if safe to hold spironolactone x several weeks for testing--defer to outpt setting; can also consider MR/CT of adrenals to look for solitary tumor or bilateral hyperplasia if pt follows up -outpt pheo workup planned Non-ischemic CM (sec to HTN), EF 40-45%, s/p ICD: -Several caths all non-obstructive per Dr Walters recall, will have to obtain records from [facility] to see if subsequent caths have shown change -Scar on MRI w/documented VT on loop, s/p ICD -CXR with patchy bilat lower lobe interstitial infiltrates, no vascular engorgement or effusions--? mild (interstitial) pulm edema. creat up, pt asymptomatic--deferring lasix -K/Mg to > 4/2 -bb (labetalol, for BP control) -TSELLA on hold--reconsider depending on renal fxn behavior -to consider Entresto as outpatient CKD: -baseline creat 1.4-1.7 -fluctuating close to baseline range here, observe trend. cont spirono and STELLA for now Thoracic aneurysm: -Small -Beta amber -Smoking cessation counselled here -Yearly echo surveillance as outpt ICD: -Followed at [facility] by EP Dr. Faria Mild AR: -Yearly echo, no intervention required at this time Equivocal TnI (0.1-0.2) -In setting acute CHF, CKD. Flat trend, indeterminate level, no angina = not c/w Type I [place]. -Control BP -Cont ASA 81mg daily
--- NOTE | 2019-12-17 13:19 | PN ---
Teaching Attending Note Name of Resident: Woody Harden ATTENDING PHYSICIAN STATEMENT I saw and evaluated the patient. I reviewed the resident's note and discussed the case with the resident. I agree with the resident's findings and plan as documented. SUBJECTIVE: Patient seen in the ICU. BP better controlled. Did use NIPPV overnight. Less SOB. No CP. Intake & Output 12/14/19 12/15/19 12/16/19 12/17/19 23:59 23:59 23:59 23:59 Intake Total 290 607 698 2983 Output Total 220 1150 Balance 290 604 280 -50 Weight 202 lb 4.8 oz 207 lb 207 lb Last Vital Signs Temp Pulse Resp BP Pulse Ox 97.8 F 72 16 119/89 100 12/17/19 08:15 12/17/19 13:03 12/17/19 13:03 12/17/19 13:03 12/17/19 08:35 Active Medications Aspirin (Asa -) 81 mg PO DAILY [facility] Last Admin: 12/17/19 09:25 Dose: 81 mg Documented by: Heparin Sodium (Porcine) (Heparin -) 5,000 unit SQ BID [facility] Last Admin: 12/17/19 09:26 Dose: 5,000 unit Documented by: Labetalol HCl (Normodyne -) 300 mg PO BID [facility] Last Admin: 12/17/19 09:26 Dose: 300 mg Documented by: Nifedipine (Procardia Xl -) 30 mg PO BID [facility] Last Admin: 12/17/19 09:26 Dose: 30 mg Documented by: Pantoprazole Sodium (Protonix -) 40 mg PO DAILY [facility] Last Admin: 12/17/19 09:26 Dose: 40 mg Documented by: Spironolactone (Aldactone -) 25 mg PO DAILY [facility] Last Admin: 12/17/19 09:25 Dose: 25 mg Documented by: Gen: NAD Heart: RRR Lung: scattered basilar rhonchi, no wheezes Abd: soft, nontender Ext: no edema Laboratory Results - last 24 hr 12/17/19 12/17/19 05:52 05:52 WBC 5.3 RBC 3.33 L Hgb 8.9 L Hct 28.4 L MCV 85.4 MCH 26.6 MCHC 31.1 L RDW 17.2 H Plt Count 139 MPV 8.1 Absolute Neuts (auto) 2.8 Neutrophils % 52.5 Lymphocytes % 27.5 Monocytes % 14.2 H Eosinophils % 4.9 H D Basophils % 0.9 Nucleated RBC % 0 Sodium 142 Potassium 4.0 Chloride 108 H Carbon Dioxide 25 Anion Gap 8 BUN 29.4 H Creatinine 1.6 H Est GFR (CKD-EPI)AfAm 53.48 Est GFR (CKD-EPI)NonAf 46.14 Random Glucose 88 Calcium 8.4 L Phosphorus 3.2 Magnesium 2.1 Total Bilirubin 1.1 H AST 11 L ALT 23 Alkaline Phosphatase 74 Total Protein 6.5 Albumin 3.0 L ASSESSMENT AND PLAN: Hypertensive Urgency Acute on Chronic Systolic/Diastolic Heart Failure CAD +Troponins likely Demand Ischemia Lactic Acidosis likely from Respiratory Distress CKD HTN Hyperlipidemia Anemia - Lasix - Titrate BP meds - monitor urine output, creatinine - Nasal cannula O2 as needed - O2 to keep Spo2 >90% - DVT prophylaxis - Cardiac Telemetry monitoring Dr Dillard
--- NOTE | 2019-12-17 13:32 | PN ---
Physical Exam: SUBJECTIVE: Patient seen and examined at bedside. No acute events overnight. OBJECTIVE: Vital Signs Period Temp Pulse Resp BP Sys/Rosado Pulse Ox Last 24 Hr 97.8 F-98.5 F 68-81 14-18 119-169/89-130 100 GENERAL: NAD HEAD: Normal with no signs of trauma. EYES:EOMI Sclera Clear ENT: MMM NECK: Trachea midline, full range of motion, supple. LUNGS: Clear b/l. HEART: RRR, no MRG ABDOMEN: Soft, NDNT. No Bruit's appreciated upon auscultation. EXTREMITIES: No CCE NEUROLOGICAL: Cranial nerves II through XII grossly intact. . Laboratory Results - last 24 hr 12/17/19 12/17/19 05:52 05:52 WBC 5.3 RBC 3.33 L Hgb 8.9 L Hct 28.4 L MCV 85.4 MCH 26.6 MCHC 31.1 L RDW 17.2 H Plt Count 139 MPV 8.1 Absolute Neuts (auto) 2.8 Neutrophils % 52.5 Lymphocytes % 27.5 Monocytes % 14.2 H Eosinophils % 4.9 H D Basophils % 0.9 Nucleated RBC % 0 Sodium 142 Potassium 4.0 Chloride 108 H Carbon Dioxide 25 Anion Gap 8 BUN 29.4 H Creatinine 1.6 H Est GFR (CKD-EPI)AfAm 53.48 Est GFR (CKD-EPI)NonAf 46.14 Random Glucose 88 Calcium 8.4 L Phosphorus 3.2 Magnesium 2.1 Total Bilirubin 1.1 H AST 11 L ALT 23 Alkaline Phosphatase 74 Total Protein 6.5 Albumin 3.0 L Active Medications Generic Name Dose Route Start Last Admin Trade Name Henrik PRN Reason Stop Dose Admin Aspirin 81 mg 12/17/19 10:00 12/17/19 09:25 Asa - PO 81 mg DAILY [facility] Administration Heparin Sodium (Porcine) 5,000 unit 12/16/19 22:00 12/17/19 09:26 Heparin - SQ 5,000 unit BID H[facility]Y Administration Labetalol HCl 300 mg 12/16/19 22:00 12/17/19 09:26 Normodyne - PO 300 mg BID HONEY Administration Nifedipine 30 mg 12/16/19 22:00 12/17/19 09:26 Procardia Xl - PO 30 mg BID HONEY Administration Pantoprazole Sodium 40 mg 12/17/19 10:00 12/17/19 09:26 Protonix - PO 40 mg DAILY HONEY Administration Spironolactone 25 mg 12/17/19 10:00 12/17/19 09:25 Aldactone - PO 25 mg DAILY HONEY Administration ASSESSMENT/PLAN: 59 y.o. M PMH HTN, hypertensive CM, chronic systolic heart failure, CAD, cardiac stent, AICD, hyperlipidemia, anemia who presented to the ED with sudden onset SOB and chest pain. #Hypertensive emergency -labetalol gtt d/c'd labetalol 300mg BID, nifedipine 30mg BID. -holding ACEi (quinapril) 2/2 esha, f/u renal recs to resume -EKG sinus rhythm rate 91bpm, PAC's. prolonged qtc 553. -chest pain resolved -monitor BP closely -troponins have normalized, likely 2/2 demand ischemia from HTN -repeat lactic WNL -cardio following: suggests pheochromocytoma workup as outpatient. -daily aspirin #Acute on chronic CHF -CXR: b/l congestive changes -BNP 3467 -echo 12/12: EF 45-45%. Moderate LVH. LV dilation. Decr LV sys function. LA mod dilation. RA mild dilation. Mild MR, trace TR. Mild ao. regurgitation, aortic root dilation. -lasix d/c'd; assess clinical status for need -pulm following: Dr. Dillard -consider entresto as outpatient -O2 to maintain Spo2 >90% #ESHA -Cr 1.6 today (yesterday 1.8)- resolving -Renal Dr. Vogt following -holding STELLA, spironolactone f/u renal recs -Renal US---> Left Nephrolithiasis no hydro #Non-ischemic CM -Looks euvolemic. No need for Furosemide -has AICD placement #PPX -DVT:heparin sq -GI: protonix 40mg P daily #FEN -no standing fluids -trend & replete lytes prn -Low fat/ chol/ Na diet #Disp telemetry Visit type - Emergency Visit Emergency Visit: Yes ED Registration Date: 12/13/19 Care time: The patient presented to the Emergency Department on the above date and was hospitalized for further evaluation of their emergent condition. - New Patient This patient is new to me today: No - Critical Care Critical Care patient: Yes Total Critical Care Time (in minutes): 35 Critical Care Statement: The care of this patient involved high complexity decision making to prevent further life threatening deterioration of the patient's condition and/or to evaluate & treat vital organ system(s) failure or risk of failure. - Discharge Referral Referred to [facility] Med [facility] No ATTENDING PHYSICIAN STATEMENT I saw and evaluated the patient. I reviewed the resident's note and discussed the case with the resident. I agree with the resident's findings and plan as documented. SUBJECTIVE: OBJECTIVE: ASSESSMENT AND PLAN:
--- NOTE | 2019-12-17 14:03 | PN ---
Physical Exam: SUBJECTIVE: Patient seen and examined at bedside. Overnight there were no acute events. This AM he offers no new complaints. ROS neg. OBJECTIVE: Vital Signs Period Temp Pulse Resp BP Sys/Rosado Pulse Ox Last 24 Hr 97.8 F-98.5 F 68-81 14-18 119-169/89-130 100 GENERAL: The patient is awake, alert, and fully oriented, in no acute distress. HEAD: Normal with no signs of trauma. EYES: PERRL, extraocular movements intact, sclera anicteric, conjunctiva clear. No ptosis. ENT: Ears normal, nares patent, oropharynx clear without exudates, moist mucous membranes. NECK: Trachea midline, full range of motion, supple. LUNGS: Breath sounds equal, clear to auscultation bilaterally, no wheezes, no crackles, no accessory muscle use. HEART: Regular rate and rhythm, S1, S2 without murmur, rub or gallop. ABDOMEN: Soft, nontender, nondistended, normoactive bowel sounds, no guarding, no rebound, no hepatosplenomegaly, no masses. EXTREMITIES: 2+ pulses, warm, well-perfused, no edema. NEUROLOGICAL: Cranial nerves II through XII grossly intact. Normal speech, gait not observed. PSYCH: Normal mood, normal affect. SKIN: Warm, dry, normal turgor, no rashes or lesions noted Laboratory Results - last 24 hr 12/17/19 12/17/19 05:52 05:52 WBC 5.3 RBC 3.33 L Hgb 8.9 L Hct 28.4 L MCV 85.4 MCH 26.6 MCHC 31.1 L RDW 17.2 H Plt Count 139 MPV 8.1 Absolute Neuts (auto) 2.8 Neutrophils % 52.5 Lymphocytes % 27.5 Monocytes % 14.2 H Eosinophils % 4.9 H D Basophils % 0.9 Nucleated RBC % 0 Sodium 142 Potassium 4.0 Chloride 108 H Carbon Dioxide 25 Anion Gap 8 BUN 29.4 H Creatinine 1.6 H Est GFR (CKD-EPI)AfAm 53.48 Est GFR (CKD-EPI)NonAf 46.14 Random Glucose 88 Calcium 8.4 L Phosphorus 3.2 Magnesium 2.1 Total Bilirubin 1.1 H AST 11 L ALT 23 Alkaline Phosphatase 74 Total Protein 6.5 Albumin 3.0 L Active Medications Generic Name Dose Route Start Last Admin Trade Name Freq PRN Reason Stop Dose Admin Aspirin 81 mg 12/17/19 10:00 12/17/19 09:25 Asa - PO 81 mg DAILY HONEY Administration Heparin Sodium (Porcine) 5,000 unit 12/16/19 22:00 12/17/19 09:26 Heparin - SQ 5,000 unit BID HONEY Administration Labetalol HCl 300 mg 12/16/19 22:00 12/17/19 09:26 Normodyne - PO 300 mg BID HONEY Administration Nifedipine 30 mg 12/16/19 22:00 12/17/19 09:26 Procardia Xl - PO 30 mg BID HONEY Administration Pantoprazole Sodium 40 mg 12/17/19 10:00 12/17/19 09:26 Protonix - PO 40 mg DAILY HONEY Administration Spironolactone 25 mg 12/17/19 10:00 12/17/19 09:25 Aldactone - PO 25 mg DAILY HONEY Administration ASSESSMENT/PLAN: 59 y/o male PMH CHF, hypertensive cardiomyopathy, possible HOCM w/ Vtach s/p AICD placement at [facility], CAD s/p cardiac stent placement x1, HLD, anemia, and nephrolithiasis BIBEMS for c/o SOB and admitted for CHF exacerbation. Patient is admitted to ICU for hypertensive urgency necessitating labetolol drip. He has completed the beta amber drip and is now sustaining appropriate BP on oral agents. #Neuro AOx3 No focal neurological signs #CVS s/p labetolol GTT Now Labetolol 300 mg po BID, Nifedipine 30 mg po BID, and spironolactone 25 mg po qd Troponemia Outpt f/u for thoracic aortic aneurysm #Pulmonary Now saturating well on RA #Renal Cr 1.6 UO 220 F/u INDU #FEN PO Monitor and replete as appropriate Fat/cholesterol/sodium restricted diet #Ppx Heparin 5k units BID Protonix 40mg PO #Disposition Transfer to telemetry Visit type - Emergency Visit Emergency Visit: No - New Patient This patient is new to me today: Yes Date on this admission: 12/17/19 - Critical Care Critical Care patient: Yes Total Critical Care Time (in minutes): 36 Critical Care Statement: The care of this patient involved high complexity decision making to prevent further life threatening deterioration of the patient's condition and/or to evaluate & treat vital organ system(s) failure or risk of failure. ATTENDING PHYSICIAN STATEMENT I saw and evaluated the patient. I reviewed the resident's note and discussed the case with the resident. I agree with the resident's findings and plan as documented. SUBJECTIVE: OBJECTIVE: ASSESSMENT AND PLAN:
--- NOTE | 2019-12-17 14:45 | PN ---
Teaching Attending Note Name of Resident: Cheikh Henley ATTENDING PHYSICIAN STATEMENT I saw and evaluated the patient. I reviewed the resident's note and discussed the case with the resident. I agree with the resident's findings and plan as documented. SUBJECTIVE: NAD, awake, alert, cooperative . comfortable in bed CV: RRR, no MRG Lungs: CTAB Ext: No edema or erythema on upper or lower extremities Abd: soft, NT, ND . No renal artery bruits heard. No delay in pulse between radial and femoral pulses. ASSESSMENT AND PLAN: 59 y/o man with h/o HTN, NICMP, S/p ICD, HLP, anemia, AR, and other medical problems who is being treated fr HTN 1- HTN emergency with trop leak - BP improved - cont labetalol, and nifedipine - hold home ARB due to ESHA - Out pt w/u for secondary HTN causes 2- H/o Non Ischemic CM, looks euvolemic . No need for lasix 3- ESHA on CKD due to HTN . - Monitor BP - renal US pending - will resume lisinopril when renal function is stable - cont spironolactone 4- thoracic aortic aneurysm : out pt f.u 5- Eelvated trop : demand due to HTN . - cont asa and BB . 6- DVT PX : heparin sq . change to TID
--- NOTE | 2019-12-17 15:06 | PN ---
Progress Note, Physician History of Present Illness: Pt seen and examined at bedside. He is awake and alert. He denies shortness of breath. - Current Medication List Current Medications: Active Medications Aspirin (Asa -) 81 mg PO DAILY [facility] Last Admin: 12/17/19 09:25 Dose: 81 mg Documented by: Heparin Sodium (Porcine) (Heparin -) 5,000 unit SQ TID [facility] Labetalol HCl (Normodyne -) 300 mg PO BID [facility] Last Admin: 12/17/19 09:26 Dose: 300 mg Documented by: Nifedipine (Procardia Xl -) 30 mg PO BID [facility] Last Admin: 12/17/19 09:26 Dose: 30 mg Documented by: Pantoprazole Sodium (Protonix -) 40 mg PO DAILY [facility] Last Admin: 12/17/19 09:26 Dose: 40 mg Documented by: Spironolactone (Aldactone -) 25 mg PO DAILY [facility] Last Admin: 12/17/19 09:25 Dose: 25 mg Documented by: - Objective Vital Signs: Vital Signs Temperature 97.8 F 12/17/19 08:15 Pulse Rate 72 12/17/19 13:03 Respiratory Rate 16 12/17/19 13:03 Blood Pressure 119/89 12/17/19 13:03 O2 Sat by Pulse Oximetry (%) 100 12/17/19 08:35 Constitutional: Yes: Calm Eyes: Yes: Conjunctiva Clear HENT: Yes: Atraumatic Neck: Yes: Supple Cardiovascular: Yes: S1, S2 Respiratory: Yes: CTA Bilaterally Gastrointestinal: Yes: Soft Genitourinary: Yes: WNL Musculoskeletal: Yes: WNL Edema: No Neurological: Yes: Oriented Psychiatric: Yes: Oriented Labs: CBC, BMP 12/17/19 05:52 12/17/19 05:52 INR, PTT INR 1.13 (0.83-1.09) H 12/13/19 08:12 Assessment/Plan Current Medications Generic Name Dose Route Start Last Admin Trade Name Anatolyq PRN Reason Stop Dose Admin Aspirin 81 mg 12/17/19 10:00 12/17/19 09:25 Asa - PO 81 mg DAILY [facility] Administration Heparin Sodium (Porcine) 5,000 unit 12/17/19 22:00 Heparin - SQ TID [facility] Labetalol HCl 300 mg 12/16/19 22:00 12/17/19 09:26 Normodyne - PO 300 mg BID HONEY Administration Nifedipine 30 mg 12/16/19 22:00 12/17/19 09:26 Procardia Xl - PO 30 mg BID HONEY Administration Pantoprazole Sodium 40 mg 12/17/19 10:00 12/17/19 09:26 Protonix - PO 40 mg DAILY HONEY Administration Spironolactone 25 mg 12/17/19 10:00 12/17/19 09:25 Aldactone - PO 25 mg DAILY HONEY Administration Impression 1. ESHA 2. htn 3. chf 4. cad 5. anemia 6. nephrolithiasis Plan - bp is improved - renal function slowly improving - clonidine stopped - cardio follow up - juan carlos on hold until renal function stabilized - repeat labs in am - avoid nsiads - 2 grams sodium diet - cont to monitor bp closely
[2019-12-18 06:13] LABS: HEMATOCRIT 29.3 % (35.4-49); HEMOGLOBIN 9.1 GM/dL (11.7-16.9); MCH 26.5 pg (25.7-33.7); MCHC 31.1 g/dl (32.0-35.9); MEAN CELL VOLUME 85.3 fl (80-96); MEAN PLT VOLUME 7.9 fl (7.5-11.1); PLATELET COUNT 150 K/MM3 (134-434); RBC 3.43 M/mm3 (4.00-5.60); RDW 17.3 % (11.9-15.9); WHITE BLOOD COUNT 5.2 K/mm3 (4.0-10.0)
[2019-12-18] MEDS: HEPARIN NA (PORCINE) 5,000 UNITS/ML 1ML VIAL SQ SCH ×2 (06:32→14:25)
[2019-12-18 06:53] LABS: ALBUMIN 3.1 g/dl (3.4-5.0); BILIRUBIN,TOTAL 0.7 mg/dL (0.2-1); BLOOD UREA NITROGEN 26.3 mg/dL (7-18); CALCIUM 8.7 mg/dL (8.5-10.1); CREATININE 1.5 mg/dL (0.55-1.3); MAGNESIUM 2.1 mg/dL (1.8-2.4); PHOSPHOROUS 3.4 mg/dL (2.5-4.9); POTASSIUM 4.2 mmol/L (3.5-5.1)
--- NOTE | 2019-12-18 08:43 | PN ---
Physical Exam: SUBJECTIVE: Patient seen this morning with no complaints. No acute events overnight. OBJECTIVE: Vital Signs Period Temp Pulse Resp BP Sys/Rosado Pulse Ox Last 24 Hr 97.8 F 69-79 15-18 119-140/89-104 95 GENERAL: The patient is awake, alert, and fully oriented, in no acute distress. HEAD: Normal with no signs of trauma. EYES: PERRL, extraocular movements intact, ENT:moist mucous membranes. LUNGS: Breath sounds equal, clear to auscultation bilaterally, no wheezes, no crackles, no accessory muscle use. HEART: Regular rate and rhythm, S1, S2 without murmur, rub or gallop. ABDOMEN: Soft, nontender, nondistended, normoactive bowel sounds, EXTREMITIES: no edema. SKIN: Warm, dry, normal turgor, no rashes or lesions noted Laboratory Results - last 24 hr 12/18/19 12/18/19 05:20 05:20 WBC 5.2 RBC 3.43 L Hgb 9.1 L Hct 29.3 L MCV 85.3 MCH 26.5 MCHC 31.1 L RDW 17.3 H Plt Count 150 MPV 7.9 Sodium 139 Potassium 4.2 Chloride 108 H Carbon Dioxide 23 Anion Gap 8 BUN 26.3 H Creatinine 1.5 H Est GFR (CKD-EPI)AfAm 57.82 Est GFR (CKD-EPI)NonAf 49.88 Random Glucose 94 Calcium 8.7 Phosphorus 3.4 Magnesium 2.1 Total Bilirubin 0.7 AST 15 ALT 26 Alkaline Phosphatase 81 Total Protein 7.0 Albumin 3.1 L Active Medications Generic Name Dose Route Start Last Admin Trade Name Henrik PRN Reason Stop Dose Admin Aspirin 81 mg 12/17/19 10:00 12/17/19 09:25 Asa - PO 81 mg DAILY HONEY Administration Heparin Sodium (Porcine) 5,000 unit 12/17/19 22:00 12/18/19 06:32 Heparin - SQ 5,000 unit TID HONEY Administration Labetalol HCl 300 mg 12/16/19 22:00 12/17/19 21:14 Normodyne - PO 300 mg BID HONEY Administration Nifedipine 30 mg 12/16/19 22:00 12/17/19 21:14 Procardia Xl - PO 30 mg BID HONEY Administration Pantoprazole Sodium 40 mg 12/17/19 10:00 12/17/19 09:26 Protonix - PO 40 mg DAILY HONEY Administration Spironolactone 25 mg 12/17/19 10:00 12/17/19 09:25 Aldactone - PO 25 mg DAILY HONEY Administration ASSESSMENT/PLAN: Patient is a 59 /yo male with a history of CHF, CAD, HLD, anemia who was admitted for hypertensive urgency and CHF exacerbation. #Neuro - A&O x3 #Cardio - Hypertensive urgency, currently controlled with home meds - continue spironolactone 25 mg daily - continue labetolol 300 bid - continue nifedipine 30 mg bid - hx diastolic CHF, not acutely in exacerbation asymptomatic - ECHO 12/13/2019: moderate concentric left ventricular hypertrophy, left ventricle is moderately dilated, systolic function mildly reduced - ICD in place - tropinemia resolved, likely 2/2 to HTN urgency - thoracic aneurysm yearly monitoring #Pulm - stable, monitor O 2 saturation > 90% - patient hypoxic upon admission, will order pre and post before DC #GI - protonix for ppx #Renal - ESHA 2/2 to hypertensive urgency - Renal US: nephrolithiasis, no hydronephrosis - ESHA resolving - baseline cr 1.4-1.7 - can continue STELLA once ESHA has resolved, creatinine continuing to trend down, monitor daily #DVT ppx: heparin tid FEN - low sodium diet dispo: can be transferred to tele Visit type - Emergency Visit Emergency Visit: No - New Patient This patient is new to me today: Yes Date on this admission: 12/18/19 - Critical Care Critical Care patient: Yes Total Critical Care Time (in minutes): 45 Critical Care Statement: The care of this patient involved high complexity decision making to prevent further life threatening deterioration of the patient's condition and/or to evaluate & treat vital organ system(s) failure or risk of failure. ATTENDING PHYSICIAN STATEMENT I saw and evaluated the patient. I reviewed the resident's note and discussed the case with the resident. I agree with the resident's findings and plan as documented. SUBJECTIVE: OBJECTIVE: ASSESSMENT AND PLAN:
[2019-12-18] MEDS: LABETALOL HCL 100 MG TABLET (FP) PO SCH (09:00)
[2019-12-18] MEDS: SPIRONOLACTONE 25 MG TABLET PO SCH (09:01)
[2019-12-18] MEDS: ASPIRIN 81 MG CHEWABLE TABLETS PO SCH (09:01)
[2019-12-18] MEDS: PANTOPRAZOLE 40 MG TABLET PO SCH (09:01)
[2019-12-18] MEDS: NIFEdipine E.R. 30 MG TABLET PO SCH (09:01)
--- NOTE | 2019-12-18 09:06 | PN ---
Teaching Attending Note Name of Resident: Lynda Loza ATTENDING PHYSICIAN STATEMENT I saw and evaluated the patient. I reviewed the resident's note and discussed the case with the resident. I agree with the resident's findings and plan as documented. SUBJECTIVE: Patient is feeling better with no acute distress. Patient states that he run out of his BP meds. prior coming to ED. OBJECTIVE: Vital Signs Temperature 97.8 F 12/18/19 02:38 Pulse Rate 79 12/18/19 06:00 Respiratory Rate 15 12/18/19 06:00 Blood Pressure 132/97 12/18/19 06:00 O2 Sat by Pulse Oximetry (%) 95 12/18/19 09:00 PE: per resident's note CBCD WBC 5.2 K/mm3 (4.0-10.0) 12/18/19 05:20 RBC 3.43 M/mm3 (4.00-5.60) L 12/18/19 05:20 Hgb 9.1 GM/dL (11.7-16.9) L 12/18/19 05:20 Hct 29.3 % (35.4-49) L 12/18/19 05:20 MCV 85.3 fl (80-96) 12/18/19 05:20 MCHC 31.1 g/dl (32.0-35.9) L 12/18/19 05:20 RDW 17.3 % (11.9-15.9) H 12/18/19 05:20 Plt Count 150 K/MM3 (134-434) 12/18/19 05:20 MPV 7.9 fl (7.5-11.1) 12/18/19 05:20 CMP Sodium 139 mmol/L (136-145) 12/18/19 05:20 Potassium 4.2 mmol/L (3.5-5.1) 12/18/19 05:20 Chloride 108 mmol/L (98-107) H 12/18/19 05:20 Carbon Dioxide 23 mmol/L (21-32) 12/18/19 05:20 Anion Gap 8 MMOL/L (8-16) 12/18/19 05:20 BUN 26.3 mg/dL (7-18) H 12/18/19 05:20 Creatinine 1.5 mg/dL (0.55-1.3) H 12/18/19 05:20 Random Glucose 94 mg/dL (74-106) 12/18/19 05:20 Calcium 8.7 mg/dL (8.5-10.1) 12/18/19 05:20 Total Bilirubin 0.7 mg/dL (0.2-1) 12/18/19 05:20 AST 15 U/L (15-37) 12/18/19 05:20 ALT 26 U/L (13-61) 12/18/19 05:20 Alkaline Phosphatase 81 U/L (45-117) 12/18/19 05:20 Total Protein 7.0 g/dl (6.4-8.2) 12/18/19 05:20 Albumin 3.1 g/dl (3.4-5.0) L 12/18/19 05:20 CARDIAC ENZYMES Creatine Kinase 157 U/L (26-308) 12/13/19 08:12 Troponin I < 0.02 ng/ml (0.00-0.05) 12/14/19 18:12 Current Medications Generic Name Dose Route Start Last Admin Trade Name Freq PRN Reason Stop Dose Admin Aspirin 81 mg 12/17/19 10:00 12/18/19 09:01 Asa - PO 81 mg DAILY [facility] Administration Heparin Sodium (Porcine) 5,000 unit 12/17/19 22:00 12/18/19 06:32 Heparin - SQ 5,000 unit TID [facility] Administration Labetalol HCl 300 mg 12/16/19 22:00 12/18/19 09:00 Normodyne - PO 300 mg BID HONEY Administration Nifedipine 30 mg 12/16/19 22:00 12/18/19 09:01 Procardia Xl - PO 30 mg BID HONEY Administration Pantoprazole Sodium 40 mg 12/17/19 10:00 12/18/19 09:01 Protonix - PO 40 mg DAILY HONEY Administration Spironolactone 25 mg 12/17/19 10:00 12/18/19 09:01 Aldactone - PO 25 mg DAILY HONEY Administration Home Medications Medication Instructions Recorded Aspirin 81 mg PO DAILY 12/14/19 Carvedilol 25 mg PO DAILY 12/14/19 Isosorbide Mononitrate [Isosorbide 30 mg PO DAILY 12/14/19 Mononitrate ER] Lisinopril/Hydrochlorothiazide 20 - 25 mg PO DAILY 12/14/19 [Lisinopril-Hctz 20-25 mg Tab] Nifedipine ER [Procardia Xl -] 90 mg PO DAILY 12/14/19 Omeprazole 40 mg PO DAILY 12/14/19 Laboratory Tests 12/13/19 12/15/19 12/15/19 19:00 12:46 23:00 Creatinine Lactic Acid 4.1 H* B-Natriuretic Peptide Urine Protein 2+ H Urine Blood 3+ H Ur Random Creatinine COVID-19 ([facility]) Not detected 12/15/19 12/16/19 12/16/19 23:00 05:20 05:20 Creatinine 1.7 H Lactic Acid 1.0 B-Natriuretic Peptide Urine Protein Urine Blood Ur Random Creatinine 279.0 H COVID-19 ([facility]ISHNU) 12/16/19 12/17/19 12/18/19 05:20 05:52 05:20 Creatinine 1.6 H 1.5 H Lactic Acid B-Natriuretic Peptide 2407.3 H Urine Protein Urine Blood Ur Random Creatinine COVID-19 ([facility]NU) REnal US: ECHO: moderate concentric left ventricular hypertrophy. left ventricle is moderately dilated, left ventriclar systolic function is moderately reduced. right ventricle is NL in size, a pacemaker lead in the right ventricle. ASSESSMENT AND PLAN: This patient is a 59yom with PMhx of HTN, NICMP, s/p ICD, HLP, anemia, AR, and was admitted for HTN emergency. # HTN emergency: BP improved on labetalol, and nifedipine continue. Discussed with regional property manager, patient needs close follow up with the regional property manager to monitor his blood pressure. continue to hold home ARB due to ESHA # Hx of Non Ischemic CM:continue tight BP control # ESHA on CKD due to uncontrolled HTN: due to non compliance ; cont spironolactone, monitor cmp within a week. # thoracic aortic aneurysm : tight BP control, follow up as an outpatient # Elevated trop : demand ischemia due to HTN . cont asa and BB . dc patient home.
--- NOTE | 2019-12-18 11:35 | PN ---
Teaching Attending Note Name of Resident: Susan Klein ATTENDING PHYSICIAN STATEMENT I saw and evaluated the patient. I reviewed the resident's note and discussed the case with the resident. I agree with the resident's findings and plan as documented. SUBJECTIVE: Patient seen in the ICU. Overall feels better, at baseline. Saturation 100% on RA. No acute events overnight. Intake & Output 12/15/19 12/16/19 12/17/19 12/18/19 23:59 23:59 23:59 23:59 Intake Total 543 743 3871 Output Total 220 1450 2 Balance 604 280 300 -2 Weight 207 lb 207 lb 207 lb 7.28 oz Last Vital Signs Temp Pulse Resp BP Pulse Ox 97.9 F 65 19 128/102 H 100 12/18/19 10:00 12/18/19 10:00 12/18/19 10:00 12/18/19 10:00 12/18/19 11:12 Active Medications Aspirin (Asa -) 81 mg PO DAILY [facility] Last Admin: 12/18/19 09:01 Dose: 81 mg Documented by: Heparin Sodium (Porcine) (Heparin -) 5,000 unit SQ TID [facility] Last Admin: 12/18/19 06:32 Dose: 5,000 unit Documented by: Labetalol HCl (Normodyne -) 300 mg PO BID [facility] Last Admin: 12/18/19 09:00 Dose: 300 mg Documented by: Nifedipine (Procardia Xl -) 30 mg PO BID [facility] Last Admin: 12/18/19 09:01 Dose: 30 mg Documented by: Pantoprazole Sodium (Protonix -) 40 mg PO DAILY [facility] Last Admin: 12/18/19 09:01 Dose: 40 mg Documented by: Spironolactone (Aldactone -) 25 mg PO DAILY [facility] Last Admin: 12/18/19 09:01 Dose: 25 mg Documented by: Gen: NAD Heart: RRR Lung: scattered basilar rhonchi, no wheezes Abd: soft, nontender Ext: no edema Laboratory Results - last 24 hr 12/18/19 12/18/19 05:20 05:20 WBC 5.2 RBC 3.43 L Hgb 9.1 L Hct 29.3 L MCV 85.3 MCH 26.5 MCHC 31.1 L RDW 17.3 H Plt Count 150 MPV 7.9 Sodium 139 Potassium 4.2 Chloride 108 H Carbon Dioxide 23 Anion Gap 8 BUN 26.3 H Creatinine 1.5 H Est GFR (CKD-EPI)AfAm 57.82 Est GFR (CKD-EPI)NonAf 49.88 Random Glucose 94 Calcium 8.7 Phosphorus 3.4 Magnesium 2.1 Total Bilirubin 0.7 AST 15 ALT 26 Alkaline Phosphatase 81 Total Protein 7.0 Albumin 3.1 L ASSESSMENT AND PLAN: Hypertensive Urgency Acute on Chronic Systolic/Diastolic Heart Failure CAD +Troponins likely Demand Ischemia Lactic Acidosis likely from Respiratory Distress CKD HTN Hyperlipidemia Anemia - Lasix - Titrate BP meds - DVT prophylaxis - DC planning Dr Dillard
[2019-12-18 14:31] VITALS: BP 123/96; TEMP 98.5
[2019-12-18 14:57] VITALS: PULSE 84
--- NOTE | 2019-12-18 15:24 | DS ---
Physical Exam: SUBJECTIVE: Patient seen and examined. No acute overnight telemetry events. Patient is feeling well. Denies chest pain, palpitations, sob. OBJECTIVE: Vital Signs Period Temp Pulse Resp BP Sys/Rosado Pulse Ox Last 24 Hr 97.8 F-98.5 F 65-84 15-19 123-136/90-104 95-100 PHYSICAL EXAM GENERAL: The patient is awake, alert, and fully oriented, in no acute distress. LUNGS: Breath sounds equal, CTABL, no wheezes, no crackles, no accessory muscle use. HEART: Regular rate and rhythm, S1, S2 without murmur, rub or gallop. ABDOMEN: Soft, ntnd, + bowel sounds, no guarding. EXTREMITIES: 2+ pulses, warm, well-perfused, no edema. SKIN: Warm, dry LABS Laboratory Results - last 24 hr 12/18/19 12/18/19 05:20 05:20 WBC 5.2 RBC 3.43 L Hgb 9.1 L Hct 29.3 L MCV 85.3 MCH 26.5 MCHC 31.1 L RDW 17.3 H Plt Count 150 MPV 7.9 Sodium 139 Potassium 4.2 Chloride 108 H Carbon Dioxide 23 Anion Gap 8 BUN 26.3 H Creatinine 1.5 H Est GFR (CKD-EPI)AfAm 57.82 Est GFR (CKD-EPI)NonAf 49.88 Random Glucose 94 Calcium 8.7 Phosphorus 3.4 Magnesium 2.1 Total Bilirubin 0.7 AST 15 ALT 26 Alkaline Phosphatase 81 Total Protein 7.0 Albumin 3.1 L HOSPITAL COURSE: 59 y.o. M PMH HTN, hypertensive CM, AICD, chronic systolic heart failure, CAD, cardiac stent, hyperlipidemia, anemia who presented to the ED with sudden onset SOB and chest pain. Found to have hypertensive emergency w/ trop leak, BP 220/150. Initially started on labetalol gtt. BP's improved, labetalol gtt d/c'd. Transitioned to PO medications: Labetalol 300mg BID, procardia 30mg BID, aldactone 25mg daily, and daily aspirin. Troponins have downtrended and normalized. ARB was held 2/2 ESHA; will maintan off ARB and have patient f/u for repeat renal labs as outpatient, may resume ARB at that time if renal function stable. Cardiology recommending outpatient renin/aldosterone levels (and holding spironolactone prior to testing)- also consider MRI/CT of adrenal to look for solitary tumor or bilateral hyperplasia. Patient has been educated regarding importance of medication compliance low salt diet. VSS. Hemodynamicaly stable. Date of Admission:12/13/19 * Renal U/S: Left nephrolithiasis with no evidence of hydronephrosis or acute pathology. * CXR: Interval better aeration of the lung with residual mild increased interstitial markings that may represent residual mild pulmonary venous congestion. Correlate clinically for follow-up Date of Discharge: 12/18/19 Minutes to complete discharge: 36 Discharge Summary Problems reviewed: Yes Reason For Visit: HEART FAILURE,FLASH PULMONARY EDEMA Current Active Problems Flash pulmonary edema (Acute) Heart failure (Acute) Condition: Stable - Instructions Diet, Activity, Other Instructions: Your visit: You were admitted to the hospital for very high blood pressure. You were treated with blood pressure medications with improvement of your symptoms. While here your kidney function was decreased. We held your medication called lisinopril; you will need to follow up with your primary care provider to ensure you kidney function has improved. Once it has improved you can talk to your [facility] provider regarding restarting this medication. Medications changes: -Please continue to take spironolactone 25mg once daily. -Continue to take Aspirin 81mg once daily. -Continue to take Labetalol 300mg two times per day. -You were previously taking Procardia 90mg green; from now on, take Procardia XL 30mg two times per day. -DISCONTNUE Carvedilol, Isosorbide mononitrate, lisinopril/hydrochlorathiazide. -Continue to take all other home medications as prescribed. Follow up: -Please follow-up with Cardiology Dr. Frank in 1 weeks. -Visit with your Primary Care Provider Dr. Guillen in 2 weeks. You will need to have repeat blood levels for your anemia and kidney function. You may also need a lab called renin/ aldosterone level, and possibly CT imaging of your adrenal glands. -Engineering Documentation Specialist Dr. Vogt in 2 weeks. Additional Instructions: -You are being discharged to your home. -It is very important to take all of your prescribed medications so that your blood pressure does not become dangerously high again. -Maintain a low salt and low fat diet. -Please return to the Emergency Department if you experience worsening pain, fevers, chills, shortness of breath, or chest pain, or if you experience any worsening, new or concerning symptoms. Referrals: Sebastian Guillen MD [Staff Physician] - Franc Frank MD [Staff Physician] - 1 Week Kingston Vogt MD [Staff Physician] - Disposition: HOME - Home Medications Comprehensive Discharge Medication List: Ambulatory Orders Aspirin 81 mg PO DAILY 12/14/19 Omeprazole 40 mg PO DAILY 12/14/19 Labetalol HCl [Normodyne -] 300 mg PO BID #60 tablet 12/18/19 Nifedipine ER [Procardia XL -] 30 mg PO BID #60 tab.er.24 12/18/19 Spironolactone [Aldactone -] 25 mg PO DAILY #30 tablet 12/18/19 This patient is new to me today: No Emergency Visit: No Critical Care patient: No - Discharge Referral Referred to [facility] No ATTENDING PHYSICIAN STATEMENT I saw and evaluated the patient. I reviewed the resident's note and discussed the case with the resident. I agree with the resident's findings and plan as documented. SUBJECTIVE: OBJECTIVE: ASSESSMENT AND PLAN:
--- NOTE | 2019-12-18 15:57 | PN ---
Progress Note (short form) - Note Progress Note: Chief Complaint: HTN urgency s: no chest pain, palps, dizziness, dyspnea Current Medications Generic Name Dose Route Start Last Admin Trade Name Henrik PRN Reason Stop Dose Admin Aspirin 81 mg 12/17/19 10:00 12/18/19 09:01 Asa - PO 81 mg DAILY HONEY Administration Heparin Sodium (Porcine) 5,000 unit 12/17/19 22:00 12/18/19 14:25 Heparin - SQ 5,000 unit TID HONEY Administration Labetalol HCl 300 mg 12/16/19 22:00 12/18/19 09:00 Normodyne - PO 300 mg BID HONEY Administration Nifedipine 30 mg 12/16/19 22:00 12/18/19 09:01 Procardia Xl - PO 30 mg BID HONEY Administration Pantoprazole Sodium 40 mg 12/17/19 10:00 12/18/19 09:01 Protonix - PO 40 mg DAILY HONEY Administration Spironolactone 25 mg 12/17/19 10:00 12/18/19 09:01 Aldactone - PO 25 mg DAILY HONEY Administration Vital Signs Period Temp Pulse Resp BP Sys/Rosado Pulse Ox Last 24 Hr 97.8 F-98.5 F 65-84 15-19 123-136/90-104 95-100 Constitutional: Yes: Well Nourished, No Distress, Calm Cardiovascular: Yes: Regular Rate and Rhythm Respiratory: Yes: Regular. No: Accessory Muscle Use abd: soft, nt, nd +bs Musculoskeletal: No: Joint Swelling Edema: No Neurological: Yes: Alert, Oriented Psychiatric: No: Agitated no jaundice, diaphoresis Assessment/Plan Echo: mod conc LVH, mod LV dilation, mod decr EF global 40-45%. nl RV. mild AI. mild dilated aorta root. tele: sr, 5-7 bts NSVT IMP: Hypertensive urgency, suspected medication non-adherence Non-ischemic CM Hypertensive cardiomyopathy with moderate LV dysfx , EF 40-45% Small thoracic aortic aneurysm Mild AR s/p ICD Equivocal TnI REC: Hypertensive urgency: -off nitro gtt -Hospital records reviewed: patient was here in May with controlled BP on Toprol Xl 50, Quinapril 10 and Aldactone 25. Meds resumed here, BP improving -note: disc'd with dr walters who knows pt from prior practice--med adherence pattern is poor--would not use clonidine here given his risk for severe rebound HTN crisis when med lapses. -STELLA held for ESHA, ? can resume if creat remains stable (will await renal recs on this) - improved with change metoprolol to labetalol BID, add nifedipine 30 BID -low K noted, consider renin/ros levels if safe to hold spironolactone x several weeks for testing--defer to outpt setting; can also consider MR/CT of adrenals to look for solitary tumor or bilateral hyperplasia if pt follows up -outpt pheo workup planned Non-ischemic CM (sec to HTN), EF 40-45%, s/p ICD, NSVT -Several caths all non-obstructive per Dr Walters recall, will have to obtain records from [facility] to see if subsequent caths have shown change -Scar on MRI w/documented VT on loop, s/p ICD -CXR with patchy bilat lower lobe interstitial infiltrates, no vascular engorgement or effusions--? mild (interstitial) pulm edema. creat up, pt asymptomatic--deferring lasix -K/Mg to > 4/2 -bb (labetalol, for BP control) -STELLA on hold--reconsider depending on renal fxn behavior -to consider Entresto as outpatient CKD: -baseline creat 1.4-1.7 -fluctuating close to baseline range here, observe trend. cont spirono and STELLA for now Thoracic aneurysm: -Small -Beta amber -Smoking cessation counselled here -Yearly echo surveillance as outpt ICD: -Followed at [facility] by EP Dr. Faria Mild AR: -Yearly echo, no intervention required at this time Equivocal TnI (0.1-0.2) -In setting acute CHF, CKD. Flat trend, indeterminate level, no angina = not c/w Type I SD. -Control BP -Cont ASA 81mg daily
--- NOTE | 2019-12-18 18:28 | PN ---
Progress Note, Physician History of Present Illness: Pt seen and examined at bedside. He is awake and alert. He denies shortness of breath. - Objective Vital Signs: Vital Signs Temperature 98.5 F 12/18/19 14:30 Pulse Rate 84 12/18/19 14:54 Respiratory Rate 18 12/18/19 14:30 Blood Pressure 123/96 12/18/19 14:30 O2 Sat by Pulse Oximetry (%) 98 12/18/19 14:54 Constitutional: Yes: Calm Eyes: Yes: Conjunctiva Clear HENT: Yes: Atraumatic Neck: Yes: Supple Cardiovascular: Yes: S1, S2 Respiratory: Yes: CTA Bilaterally Gastrointestinal: Yes: Normal Bowel Sounds, Soft Genitourinary: Yes: WNL Edema: No Neurological: Yes: Oriented Psychiatric: Yes: Oriented Labs: CBC, BMP 12/18/19 05:20 12/18/19 05:20 INR, PTT INR 1.13 (0.83-1.09) H 12/13/19 08:12 Assessment/Plan Current Medications Generic Name Dose Route Start Last Admin Trade Name Henrik PRN Reason Stop Dose Admin Aspirin 81 mg 12/17/19 10:00 12/17/19 09:25 Asa - PO 81 mg DAILY HONEY Administration Heparin Sodium (Porcine) 5,000 unit 12/17/19 22:00 Heparin - SQ TID HONEY Labetalol HCl 300 mg 12/16/19 22:00 12/17/19 09:26 Normodyne - PO 300 mg BID HONEY Administration Nifedipine 30 mg 12/16/19 22:00 12/17/19 09:26 Procardia Xl - PO 30 mg BID HONEY Administration Pantoprazole Sodium 40 mg 12/17/19 10:00 12/17/19 09:26 Protonix - PO 40 mg DAILY HONEY Administration Spironolactone 25 mg 12/17/19 10:00 12/17/19 09:25 Aldactone - PO 25 mg DAILY HONEY Administration Impression 1. ESHA 2. htn 3. chf 4. cad 5. anemia 6. nephrolithiasis Plan - bp has stabilized - discussed compliance with meds - he will need outpt follow up - discussed with medical team - avoid nsiads - 2 grams sodium diet - cont to monitor bp closely
== END 2019-12-18 15:30 | disposition home or self-care (01) | DRG 199 ==
LOC: JER 07:57 → JERBED 08:57 → JICU 12-14 16:11
PROVIDERS: ADMIT Internal Medicine; ATTEND Internal Medicine
PROC: 5A19054 Respiratory Ventilation, Single, Nonmechanical (ICD-10-PCS; principal; 2019-12-13)
DX: I16.0 Hypertensive urgency (principal); F17.210 Nicotine dependence, cigarettes, uncomplicated; I24.8 Other forms of acute ischemic heart disease; E78.5 Hyperlipidemia, unspecified; D64.9 Anemia, unspecified; I13.0 Hypertensive heart and chronic kidney disease with heart failure and stage 1 through stage 4 chronic kidney disease, or unspecified chronic kidney disease; E87.2 Acidosis; N18.9 Chronic kidney disease, unspecified; I71.2 Thoracic aortic aneurysm, without rupture; N20.0 Calculus of kidney; I50.43 Acute on chronic combined systolic (congestive) and diastolic (congestive) heart failure; N17.9 Acute kidney failure, unspecified; J96.01 Acute respiratory failure with hypoxia; I42.8 Other cardiomyopathies; I25.10 Atherosclerotic heart disease of native coronary artery without angina pectoris; I47.1 Supraventricular tachycardia; E87.6 Hypokalemia; Z95.5 Presence of coronary angioplasty implant and graft
CPT/HCPCS: 36415; 36600; 71045-TC-FY; 76775-TC; 80048; 80053; 81003; 82436; 82550; 82553; 82565; 82803; 83605; 83735; 83880; 84100; 84132; 84133; 84300; 84484; 85025; 85027; 85610; 85730; 93005; 93010; 93306-TC; 94660; 94761; 99291; J0131; J0735; J1644; U0003

== ENCOUNTER 2020-05-09 06:45 | Inpatient (IN) | payer OTHER ==
[2020-05-09] MEDS ORDERED: BENZOIN/ALOE VERA/STORAX/TOLU 58 ML BOTTLE ONE (06:49)
[2020-05-09] MEDS ORDERED: NITROGLYCERIN SUBLINGUAL 1/150 0.4 MG TAB SL ONE (06:50)
[2020-05-09] MEDS ORDERED: NITROGLYCERIN 25MG/D5W 250ML 25 MG/250 ML ML IVPB ONE (06:56)
[2020-05-09] MEDS ORDERED: NITROGLYCERIN 25MG/D5W 250ML 25 MG/250 ML ML IVPB SCH ×2 (07:00→07:22)
[2020-05-09 07:06] LABS: BASO % 0.7 % (0-2.0); EOS % 3.7 % (0-4.5); HEMATOCRIT 32.9 % (35.4-49); LYMPH % 38.5 % (8-40); MCH 26.3 pg (25.7-33.7); MCHC 30.5 g/dl (32.0-35.9); MEAN PLT VOLUME 7.4 fl (7.5-11.1); MONO % 10.9 % (3.8-10.2); NEUT % 46.2 % (42.8-82.8); PLATELET COUNT 166 K/MM3 (134-434); RBC 3.82 M/mm3 (4.00-5.60); RDW 16.9 % (11.9-15.9); WHITE BLOOD COUNT 5.2 K/mm3 (4.0-10.0)
[2020-05-09] MEDS ORDERED: FUROSEMIDE 40 MG/4 ML INJECTABLE VIAL IVPUSH ONE (07:07)
[2020-05-09] MEDS ORDERED: FUROSEMIDE 40 MG/4 ML INJECTABLE VIAL ONE (07:15)
[2020-05-09 07:20] LABS: POTASSIUM 3.9 mmol/L (3.5-5.1)
[2020-05-09 07:22] LABS: BLOOD UREA NITROGEN 26.1 mg/dL (7-18); CALCIUM 8.2 mg/dL (8.5-10.1)
[2020-05-09 07:24] LABS: ALBUMIN 3.3 g/dl (3.4-5.0)
[2020-05-09 07:26] LABS: CREATININE 1.7 mg/dL (0.55-1.3)
[2020-05-09 07:28] LABS: BILIRUBIN,TOTAL 0.9 mg/dL (0.2-1); TOT PROT 7.2 g/dl (6.4-8.2)
[2020-05-09] MEDS ORDERED: NITROGLYCERIN 2% OINTMENT - 1GM PACKET TD ONE ×2 (08:51→09:06)
[2020-05-09] MEDS ORDERED: CARVEDILOL 25 MG TABLET (FP) PO ONE (08:51)
[2020-05-09] MEDS ORDERED: CARVEDILOL 12.5 MG TABLET (FP) ONE (09:06)
[2020-05-09 11:01] LABS: INR 1.18 (0.83-1.09); PROTHROMBIN TIME (PATIENT) 14.2 SEC (9.7-13.0)
[2020-05-10 01:02] VITALS: BMI 27.3
[2020-05-10] MEDS: ATORVASTATIN CA 10 MG TABLET (FP) PO SCH ×2 (01:12→22:24)
[2020-05-10] MEDS: NIFEdipine E.R. 30 MG TABLET PO SCH ×3 (01:12→22:24)
[2020-05-10] MEDS: APIXABAN 5 MG TABLET PO SCH ×3 (01:12→22:24)
[2020-05-10] MEDS: CARVEDILOL 25 MG TABLET (FP) PO SCH ×3 (01:12→22:24)
[2020-05-10 06:44] LABS: BASO % 0.7 % (0-2.0); EOS % 1.9 % (0-4.5); HEMATOCRIT 29.2 % (35.4-49); LYMPH % 19.1 % (8-40); MCH 26.2 pg (25.7-33.7); MCHC 30.7 g/dl (32.0-35.9); MEAN CELL VOLUME 85.3 fl (80-96); MEAN PLT VOLUME 7.9 fl (7.5-11.1); NEUT % 68.3 % (42.8-82.8); PLATELET COUNT 136 K/MM3 (134-434); RBC 3.42 M/mm3 (4.00-5.60); WHITE BLOOD COUNT 6.1 K/mm3 (4.0-10.0)
[2020-05-10 07:24] LABS: ALBUMIN 2.9 g/dl (3.4-5.0); CALCIUM 7.8 mg/dL (8.5-10.1)
[2020-05-10 07:26] LABS: CREATININE 1.5 mg/dL (0.55-1.3)
[2020-05-10 07:27] LABS: PHOSPHOROUS 3.1 mg/dL (2.5-4.9)
[2020-05-10 07:28] LABS: BILIRUBIN,TOTAL 0.9 mg/dL (0.2-1); TOT PROT 6.6 g/dl (6.4-8.2)
[2020-05-10] MEDS: FUROSEMIDE 40 MG/4 ML INJECTABLE VIAL IVPUSH SCH (09:55)
[2020-05-10] MEDS ORDERED: PATIENT'S OWN MEDICATION (NON-FORMULARY) (Lisinopril/Hydrochlorothiazide [Lisinopril-Hctz PO SCH (10:00)
[2020-05-10] MEDS ORDERED: LISINOPRIL 20 MG TABLET PO ONE (14:58)
[2020-05-11 07:22] LABS: HEMATOCRIT 28.4 % (35.4-49); HEMOGLOBIN 8.8 GM/dL (11.7-16.9); MCH 26.1 pg (25.7-33.7); MEAN CELL VOLUME 84.5 fl (80-96); MEAN PLT VOLUME 8.3 fl (7.5-11.1); PLATELET COUNT 136 K/MM3 (134-434); RBC 3.37 M/mm3 (4.00-5.60); RDW 16.5 % (11.9-15.9); WHITE BLOOD COUNT 5.8 K/mm3 (4.0-10.0)
[2020-05-11 07:53] LABS: POTASSIUM 3.7 mmol/L (3.5-5.1)
[2020-05-11 07:56] LABS: BLOOD UREA NITROGEN 26.4 mg/dL (7-18)
[2020-05-11 07:59] LABS: CALCIUM 7.8 mg/dL (8.5-10.1); CREATININE 1.5 mg/dL (0.55-1.3)
[2020-05-11] MEDS: CARVEDILOL 25 MG TABLET (FP) PO SCH (09:03)
[2020-05-11] MEDS: NIFEdipine E.R. 30 MG TABLET PO SCH (09:03)
[2020-05-11] MEDS: APIXABAN 5 MG TABLET PO SCH (09:03)
[2020-05-11] MEDS: FUROSEMIDE 40 MG/4 ML INJECTABLE VIAL IVPUSH SCH (09:03)
[2020-05-11] MEDS ORDERED: LISINOPRIL 10 MG TABLET PO SCH (10:00)
[2020-05-11 10:37] VITALS: BP 123/77; PULSE 73; TEMP 98.1
== END 2020-05-11 16:14 | disposition home or self-care (01) | DRG 199 ==
LOC: JER 06:45 → JERBED 10:13 → J4W 21:44
PROVIDERS: ATTEND Internal Medicine
DX: I16.1 Hypertensive emergency (principal); I13.0 Hypertensive heart and chronic kidney disease with heart failure and stage 1 through stage 4 chronic kidney disease, or unspecified chronic kidney disease; E78.5 Hyperlipidemia, unspecified; J81.1 Chronic pulmonary edema; N40.0 Benign prostatic hyperplasia without lower urinary tract symptoms; F17.210 Nicotine dependence, cigarettes, uncomplicated; I25.10 Atherosclerotic heart disease of native coronary artery without angina pectoris; G47.33 Obstructive sleep apnea (adult) (pediatric); I48.0 Paroxysmal atrial fibrillation; F32.9 Major depressive disorder, single episode, unspecified; D64.9 Anemia, unspecified; N20.0 Calculus of kidney; I50.23 Acute on chronic systolic (congestive) heart failure; N18.2 Chronic kidney disease, stage 2 (mild); N17.9 Acute kidney failure, unspecified; I42.8 Other cardiomyopathies; Z91.14 Patient's other noncompliance with medication regimen; Z95.5 Presence of coronary angioplasty implant and graft; Z95.810 Presence of automatic (implantable) cardiac defibrillator
CPT/HCPCS: 36415; 71045-TC-FY; 80048; 80053; 82550; 82728; 83540; 83550; 83605; 83615; 83735; 84100; 84484; 85025; 85027; 85379; 85610; 86140; 86850; 86900; 86901; 93005; 93010; 99285-25; C9803; U0003

== ENCOUNTER 2020-11-24 10:08 | Inpatient (IN) | payer OTHER ==
[2020-11-24] MEDS ORDERED: ACETAMINOPHEN 1000 MG/100 ML VIAL (NON FORMULARY) IVPB ONE (11:00)
[2020-11-24] MEDS ORDERED: ACETAMINOPHEN INJECTION 100 ML IVPB ONE (11:18)
[2020-11-24 11:35] LABS: HEMATOCRIT 16.7 % (35.4-49); MCH 22.1 pg (25.7-33.7); MCHC 30.8 g/dl (32.0-35.9); MEAN CELL VOLUME 71.7 fl (80-96); PLATELET COUNT 163 K/MM3 (134-434); RBC 2.34 M/mm3 (4.00-5.60); RDW 23.2 % (11.9-15.9)
[2020-11-24 11:40] LABS: INR 1.45 (0.83-1.09); PROTHROMBIN TIME (PATIENT) 17.7 SEC (9.7-13.0)
[2020-11-24 11:54] LABS: HEMOGLOBIN 5.2 GM/dL (11.7-16.9)
[2020-11-24 11:56] LABS: CALCIUM 8.3 mg/dL (8.5-10.1)
[2020-11-24 11:57] LABS: BLOOD UREA NITROGEN 18.5 mg/dL (7-18)
[2020-11-24 12:00] LABS: CREATININE 1.9 mg/dL (0.55-1.3)
[2020-11-24 12:01] LABS: BILIRUBIN,TOTAL 0.4 mg/dL (0.2-1)
[2020-11-24 12:02] LABS: TOT PROT 6.4 g/dl (6.4-8.2)
[2020-11-24 12:07] LABS: LACTIC ACID 2.4 mmol/L (0.4-2.0)
[2020-11-24 12:59] LABS: ANISOCYTOSIS 2+; MACROCYTOSIS 0; PLATELET ESTIMATE NORMAL
[2020-11-24 13:32] LABS: URINE APPEARANCE TURBID; URINE COLOR RED; URINE GLUCOSE (UA) NEGATIVE (NEGATIVE)
[2020-11-24 13:33] LABS: URINE BILIRUBIN NEGATIVE (NEGATIVE); URINE PROTEIN >1000 (NEGATIVE)
[2020-11-24 21:29] LABS: HEMATOCRIT 18.5 % (35.4-49); MCHC 31.2 g/dl (32.0-35.9); MEAN CELL VOLUME 73.8 fl (80-96); MEAN PLT VOLUME 8.1 fl (7.5-11.1); PLATELET COUNT 174 K/MM3 (134-434); RDW 23.1 % (11.9-15.9)
[2020-11-24 21:34] LABS: HEMOGLOBIN 5.8 GM/dL (11.7-16.9)
[2020-11-24 21:56] LABS: CALCIUM 8.1 mg/dL (8.5-10.1)
[2020-11-24 21:57] LABS: ALBUMIN 2.9 g/dl (3.4-5.0); BLOOD UREA NITROGEN 21.5 mg/dL (7-18)
[2020-11-24 22:00] LABS: CREATININE 1.7 mg/dL (0.55-1.3)
[2020-11-24] MEDS ORDERED: CARVEDILOL 6.25 MG TABLET (FP) PO SCH (22:00)
[2020-11-24 22:01] LABS: BILIRUBIN,TOTAL 1.1 mg/dL (0.2-1); TOT PROT 6.2 g/dl (6.4-8.2)
[2020-11-24] MEDS ORDERED: MORPHINE SULFATE 2 MG/ML VIAL IM ONE (22:06)
[2020-11-24] MEDS ORDERED: MORPHINE SULFATE 2 MG/ML VIAL ONE (22:07)
[2020-11-24] MEDS ORDERED: CARVEDILOL 12.5 MG TABLET (FP) ONE (22:51)
[2020-11-25] MEDS ORDERED: MORPHINE SULFATE 2 MG/ML VIAL IVPUSH ONE (00:06)
[2020-11-25 02:05] VITALS: BMI 27.1
[2020-11-25] MEDS ORDERED: MELATONIN 5 MG TABLETS PO ONE (02:51)
[2020-11-25] MEDS ORDERED: PHENAZOPYRIDINE HCL 100 MG TABLET (FP) PO ONE (03:01)
[2020-11-25] MEDS ORDERED: OXYBUTYNIN CHLORIDE 5 MG TABLET PO ONE (03:09)
[2020-11-25] MEDS: MORPHINE SULFATE 2 MG/ML VIAL IVPUSH PRN ×2 (04:13→08:55)
[2020-11-25] MEDS ORDERED: CARVEDILOL 25 MG TABLET (FP) PO SCH (07:30)
[2020-11-25 09:17] LABS: MCH 23.5 pg (25.7-33.7); MCHC 31.1 g/dl (32.0-35.9); MEAN CELL VOLUME 75.5 fl (80-96); MEAN PLT VOLUME 7.6 fl (7.5-11.1); PLATELET COUNT 170 K/MM3 (134-434); RBC 2.74 M/mm3 (4.00-5.60); RDW 22.4 % (11.9-15.9); WHITE BLOOD COUNT 15.4 K/mm3 (4.0-10.0)
[2020-11-25 09:19] LABS: HEMATOCRIT 20.7 % (35.4-49); HEMOGLOBIN 6.4 GM/dL (11.7-16.9)
[2020-11-25 09:22] LABS: INR 1.31 (0.83-1.09); PROTHROMBIN TIME (PATIENT) 15.7 SEC (9.7-13.0)
[2020-11-25 09:25] LABS: ACTIVATED PTT 22.8 SECONDS (25.2-36.5)
[2020-11-25 10:01] LABS: BLOOD UREA NITROGEN 30.6 mg/dL (7-18); CALCIUM 8.7 mg/dL (8.5-10.1)
[2020-11-25 10:04] LABS: CREATININE 2.3 mg/dL (0.55-1.3); PHOSPHOROUS 2.9 mg/dL (2.5-4.9)
[2020-11-25 10:06] LABS: BILIRUBIN,TOTAL 1.2 mg/dL (0.2-1); TOT PROT 6.9 g/dl (6.4-8.2)
[2020-11-25 10:08] LABS: ALBUMIN 3.5 g/dl (3.4-5.0)
[2020-11-25] MEDS ORDERED: FUROSEMIDE 40 MG/4 ML INJECTABLE VIAL IVPUSH ONE (10:45)
[2020-11-25] MEDS ORDERED: amLODIPine BESYLATE 10 MG TABLET (FP) PO SCH (10:45)
[2020-11-25] MEDS ORDERED: PROMETHAZINE HCL 25 MG/1 ML VIAL IVPUSH PRN ×2 (13:46→15:53)
[2020-11-25] MEDS ORDERED: ONDANSETRON 4 MG/2 ML VIAL IVPUSH PRN ×2 (13:46→15:53)
[2020-11-25] MEDS ORDERED: MIDAZOLAM HCL 2 MG/2 ML SINGLE DOSE VIAL ONE (13:51)
[2020-11-25] MEDS ORDERED: PROPOFOL 20 ML ONE (13:51)
[2020-11-25] MEDS ORDERED: LACTATED RINGERS SOLUTION 1,000 ML IV SCH ×2 (14:00→15:53)
[2020-11-25] MEDS ORDERED: LIDOCAINE HCL/PF 2% SDV 5ML VIAL ONE (14:09)
[2020-11-25] MEDS ORDERED: SODIUM CHLORIDE 0.9% P/F 10 ML VIAL IJ ONE (14:09)
[2020-11-25] MEDS ORDERED: ETOMIDATE 20 MG/10 ML AMPUL IVPUSH ONE (14:09)
[2020-11-25] MEDS ORDERED: ceFAZolin SODIUM 1 GM VIAL ONE (14:09)
[2020-11-25] MEDS ORDERED: ceFAZolin SODIUM 1 GM VIAL IVPB ONE (14:15)
[2020-11-25] MEDS ORDERED: ACETAMINOPHEN 1000 MG/100 ML VIAL (NON FORMULARY) IVPB ONE ×2 (15:52→16:00)
[2020-11-25] MEDS ORDERED: morphine SULFATE 4 MG/ML VIAL IVPUSH PRN (15:53)
[2020-11-25] MEDS ORDERED: hydrALAZINE HCL 20 MG/ML VIAL ONE (16:16)
[2020-11-25] MEDS ORDERED: hydrALAZINE HCL 20 MG/ML VIAL IVPUSH ONE ×3 (16:25→16:40)
[2020-11-25 17:07] LABS: BASO % 0.1 % (0-2.0); EOS % 0.2 % (0-4.5); HEMATOCRIT 26.4 % (35.4-49); HEMOGLOBIN 8.3 GM/dL (11.7-16.9); MCH 24.7 pg (25.7-33.7); MCHC 31.3 g/dl (32.0-35.9); MEAN CELL VOLUME 78.9 fl (80-96); MEAN PLT VOLUME 7.8 fl (7.5-11.1); MONO % 8.6 % (3.8-10.2); NEUT % 83.1 % (42.8-82.8); PLATELET COUNT 132 K/MM3 (134-434); RBC 3.35 M/mm3 (4.00-5.60); WHITE BLOOD COUNT 13.7 K/mm3 (4.0-10.0)
[2020-11-25] MEDS: CARVEDILOL 25 MG TABLET (FP) PO SCH (21:10)
[2020-11-25] MEDS: ATORVASTATIN CA 10 MG TABLET (FP) PO SCH (21:10)
[2020-11-25] MEDS ORDERED: ATORVASTATIN CA 10 MG TABLET (FP) PO SCH (22:00)
[2020-11-26] MEDS ORDERED: MORPHINE SULFATE 2 MG/ML VIAL IVPUSH ONE ×2 (05:26→05:58)
[2020-11-26 09:13] LABS: BASO % 0.2 % (0-2.0); HEMATOCRIT 23.3 % (35.4-49); HEMOGLOBIN 7.6 GM/dL (11.7-16.9); LYMPH % 11.9 % (8-40); MCH 24.9 pg (25.7-33.7); MCHC 32.7 g/dl (32.0-35.9); MEAN CELL VOLUME 76.1 fl (80-96); MEAN PLT VOLUME 8.1 fl (7.5-11.1); MONO % 6.2 % (3.8-10.2); NEUT % 81.7 % (42.8-82.8); PLATELET COUNT 147 K/MM3 (134-434); RBC 3.07 M/mm3 (4.00-5.60); RDW 20.4 % (11.9-15.9); WHITE BLOOD COUNT 11.1 K/mm3 (4.0-10.0)
[2020-11-26 09:30] LABS: CALCIUM 7.8 mg/dL (8.5-10.1)
[2020-11-26 09:31] LABS: BLOOD UREA NITROGEN 28.9 mg/dL (7-18)
[2020-11-26 09:34] LABS: CREATININE 1.9 mg/dL (0.55-1.3)
[2020-11-26 09:35] LABS: BILIRUBIN,TOTAL 0.9 mg/dL (0.2-1)
[2020-11-26] MEDS: CARVEDILOL 25 MG TABLET (FP) PO SCH ×2 (09:48→21:32)
[2020-11-26] MEDS: amLODIPine BESYLATE 10 MG TABLET (FP) PO SCH (09:48)
[2020-11-26 10:25] LABS: ALBUMIN 2.8 g/dl (3.4-5.0)
[2020-11-26] MEDS: LACTATED RINGERS SOLUTION 1,000 ML IV SCH (12:49)
[2020-11-26] MEDS: ATORVASTATIN CA 10 MG TABLET (FP) PO SCH (21:32)
[2020-11-27] MEDS ORDERED: DOCUSATE SODIUM 100 MG CAPSULE (FP) PO ONE (01:28)
[2020-11-27] MEDS ORDERED: SENNOSIDES 8.6MG TABLET (FP) PO ONE (01:29)
[2020-11-27 06:40] LABS: CALCIUM 7.8 mg/dL (8.5-10.1)
[2020-11-27 06:41] LABS: ALBUMIN 2.5 g/dl (3.4-5.0); MAGNESIUM 1.8 mg/dL (1.8-2.4)
[2020-11-27 06:44] LABS: CREATININE 1.7 mg/dL (0.55-1.3)
[2020-11-27 06:45] LABS: TOT PROT 5.4 g/dl (6.4-8.2)
[2020-11-27 06:50] LABS: BILIRUBIN,TOTAL 0.7 mg/dL (0.2-1); BLOOD UREA NITROGEN 29.2 mg/dL (7-18)
[2020-11-27] MEDS: CARVEDILOL 25 MG TABLET (FP) PO SCH ×2 (09:05→21:23)
[2020-11-27] MEDS: POLYETHYLENE GLYCOL 3350 119 GM BTL PO SCH (09:05)
[2020-11-27] MEDS: amLODIPine BESYLATE 10 MG TABLET (FP) PO SCH (09:05)
[2020-11-27 11:26] LABS: HEMATOCRIT 23.1 % (35.4-49); HEMOGLOBIN 7.6 GM/dL (11.7-16.9); MCH 25.7 pg (25.7-33.7); MEAN CELL VOLUME 77.7 fl (80-96); MEAN PLT VOLUME 7.6 fl (7.5-11.1); PLATELET COUNT 128 K/MM3 (134-434); RBC 2.97 M/mm3 (4.00-5.60); RDW 20.4 % (11.9-15.9); WHITE BLOOD COUNT 10.3 K/mm3 (4.0-10.0)
[2020-11-27] MEDS: ATORVASTATIN CA 10 MG TABLET (FP) PO SCH (21:23)
[2020-11-28 07:23] LABS: HEMATOCRIT 23.6 % (35.4-49); HEMOGLOBIN 7.8 GM/dL (11.7-16.9); MCH 25.8 pg (25.7-33.7); MCHC 33.1 g/dl (32.0-35.9); MEAN PLT VOLUME 7.7 fl (7.5-11.1); PLATELET COUNT 137 K/MM3 (134-434); RBC 3.03 M/mm3 (4.00-5.60); RDW 21.2 % (11.9-15.9); WHITE BLOOD COUNT 9.4 K/mm3 (4.0-10.0)
[2020-11-28 07:41] LABS: CALCIUM 7.9 mg/dL (8.5-10.1)
[2020-11-28 07:45] LABS: CREATININE 1.4 mg/dL (0.55-1.3)
[2020-11-28] MEDS: CARVEDILOL 25 MG TABLET (FP) PO SCH (09:02)
[2020-11-28] MEDS: POLYETHYLENE GLYCOL 3350 119 GM BTL PO SCH (09:02)
[2020-11-28] MEDS: amLODIPine BESYLATE 10 MG TABLET (FP) PO SCH (09:02)
[2020-11-28] MEDS: LACTATED RINGERS SOLUTION 1,000 ML IV SCH (09:02)
[2020-11-28 15:08] VITALS: BP 168/98; PULSE 68; TEMP 98.2
== END 2020-11-28 17:34 | disposition home or self-care (01) | DRG 446 ==
LOC: JER 10:08 → JERBED 12:51 → J4S 23:46
PROVIDERS: ATTEND Internal Medicine
PROC: 0T5B8ZZ Destruction of Bladder, Via Natural or Artificial Opening Endoscopic (ICD-10-PCS; 2020-11-25)
PROC: 0TCB8ZZ Extirpation of Matter from Bladder, Via Natural or Artificial Opening Endoscopic (ICD-10-PCS; 2020-11-25)
PROC: 0TBB8ZZ Excision of Bladder, Via Natural or Artificial Opening Endoscopic (ICD-10-PCS; principal; 2020-11-25 13:00)
PROC: 0TJB8ZZ Inspection of Bladder, Via Natural or Artificial Opening Endoscopic (ICD-10-PCS; 2020-11-25 13:00)
DX: C67.9 Malignant neoplasm of bladder, unspecified (principal); I25.10 Atherosclerotic heart disease of native coronary artery without angina pectoris; G47.33 Obstructive sleep apnea (adult) (pediatric); D63.1 Anemia in chronic kidney disease; N20.0 Calculus of kidney; N40.1 Benign prostatic hyperplasia with lower urinary tract symptoms; R31.0 Gross hematuria; D62 Acute posthemorrhagic anemia; R33.8 Other retention of urine; I13.0 Hypertensive heart and chronic kidney disease with heart failure and stage 1 through stage 4 chronic kidney disease, or unspecified chronic kidney disease; N18.9 Chronic kidney disease, unspecified; I48.0 Paroxysmal atrial fibrillation; F32.9 Major depressive disorder, single episode, unspecified; I50.42 Chronic combined systolic (congestive) and diastolic (congestive) heart failure; K42.9 Umbilical hernia without obstruction or gangrene; N17.9 Acute kidney failure, unspecified; I42.8 Other cardiomyopathies; Z95.5 Presence of coronary angioplasty implant and graft; I71.9 Aortic aneurysm of unspecified site, without rupture; E66.9 Obesity, unspecified; Z68.27 Body mass index [BMI] 27.0-27.9, adult; Z87.891 Personal history of nicotine dependence
CPT/HCPCS: 36415; 36430; 74176-TC; 76775-TC; 76856-TC; 80048; 80053; 81003; 83605; 83735; 84100; 84484; 85025; 85027; 85610; 85730; 86850; 86900; 86901; 86922; 87086; 93005; 93010; 93306-TC; 94760; 97116-GP; 97161-GP; 99285-25; C9803; J0131; P9058; U0003; U0005

== ENCOUNTER 2021-06-01 06:33 | Observation (INO) | payer OTHER ==
[2021-06-01] MEDS ORDERED: FUROSEMIDE 40 MG/4 ML INJECTABLE VIAL IVPUSH ONE (06:43)
[2021-06-01] MEDS ORDERED: FUROSEMIDE 40 MG/4 ML INJECTABLE VIAL ONE (07:27)
[2021-06-01 07:55] LABS: INR 1.23 (0.83-1.09); PROTHROMBIN TIME (PATIENT) 14.4 SEC (9.7-13.0)
[2021-06-01 07:57] LABS: BASO % 0.4 % (0-2.0); EOS % 1.6 % (0-4.5); HEMATOCRIT 27.4 % (35.4-49); HEMOGLOBIN 8.5 GM/dL (11.7-16.9); LYMPH % 12.5 % (8-40); MCH 23.9 pg (25.7-33.7); MCHC 30.8 g/dl (32.0-35.9); MEAN CELL VOLUME 77.7 fl (80-96); MEAN PLT VOLUME 7.5 fl (7.5-11.1); MONO % 7.2 % (3.8-10.2); NEUT % 78.3 % (42.8-82.8); PLATELET COUNT 186 10^3/uL (134-434); RBC 3.53 M/mm3 (4.00-5.60); RDW 21.3 % (11.9-15.9); WHITE BLOOD COUNT 8.1 K/mm3 (4.0-10.0)
[2021-06-01 07:58] LABS: ACTIVATED PTT 22.8 SECONDS (25.2-36.5)
[2021-06-01 08:07] LABS: ALBUMIN 2.8 g/dl (3.4-5.0); CALCIUM 8.1 mg/dL (8.5-10.1)
[2021-06-01 08:09] LABS: BLOOD UREA NITROGEN 24.1 mg/dL (7-18)
[2021-06-01 08:11] LABS: CREATININE 1.5 mg/dL (0.55-1.3)
[2021-06-01 08:12] LABS: BILIRUBIN,TOTAL 0.6 mg/dL (0.2-1); TOT PROT 7.3 g/dl (6.4-8.2)
[2021-06-01 08:17] LABS: N-TERMINAL BNP 5948.2 pg/ml (5-125)
[2021-06-01 11:04] LABS: ANISOCYTOSIS 2+; MACROCYTOSIS 1+; OVALOCYTE 1+; PLATELET ESTIMATE NORMAL; TARGET CELLS 2+; TEAR DROP CELLS 1+
[2021-06-01] MEDS ORDERED: CARVEDILOL 12.5 MG TABLET (FP) ONE (12:36)
[2021-06-01] MEDS ORDERED: APIXABAN 5 MG TABLET ONE (12:36)
[2021-06-01] MEDS ORDERED: amLODIPine BESYLATE 5 MG TABLET (FP) ONE (12:36)
[2021-06-01] MEDS ORDERED: HYDROCHLOROTHIAZIDE 25 MG TABLET (FP) ONE (12:36)
[2021-06-01] MEDS: CARVEDILOL 25 MG TABLET (FP) PO SCH ×2 (12:40→22:52)
[2021-06-01] MEDS: HYDROCHLOROTHIAZIDE 25 MG TABLET (FP) PO SCH (12:40)
[2021-06-01] MEDS: amLODIPine BESYLATE 10 MG TABLET (FP) PO SCH (12:40)
[2021-06-01] MEDS: APIXABAN 5 MG TABLET PO SCH ×2 (12:40→22:52)
[2021-06-01] MEDS ORDERED: HEPARIN NA (PORCINE) 5,000 UNITS/ML 1ML VIAL SQ SCH (14:00)
[2021-06-01] MEDS ORDERED: ATORVASTATIN CA 10 MG TABLET (FP) PO SCH (22:00)
[2021-06-02 03:22] VITALS: BMI 23.4
[2021-06-02 08:12] LABS: HEMOGLOBIN 7.9 GM/dL (11.7-16.9); MCH 24.5 pg (25.7-33.7); MCHC 31.7 g/dl (32.0-35.9); MEAN CELL VOLUME 77.4 fl (80-96); PLATELET COUNT 165 10^3/uL (134-434); RBC 3.22 M/mm3 (4.00-5.60); RDW 21.2 % (11.9-15.9); WHITE BLOOD COUNT 5.2 K/mm3 (4.0-10.0)
[2021-06-02 08:27] LABS: BLOOD UREA NITROGEN 28.6 mg/dL (7-18)
[2021-06-02 08:28] LABS: CALCIUM 8.3 mg/dL (8.5-10.1)
[2021-06-02 08:30] LABS: PHOSPHOROUS 3.2 mg/dL (2.5-4.9)
[2021-06-02 08:31] LABS: CREATININE 1.5 mg/dL (0.55-1.3)
[2021-06-02] MEDS: CARVEDILOL 25 MG TABLET (FP) PO SCH (09:15)
[2021-06-02] MEDS: amLODIPine BESYLATE 10 MG TABLET (FP) PO SCH (09:15)
[2021-06-02] MEDS: APIXABAN 5 MG TABLET PO SCH (09:15)
[2021-06-02] MEDS: HYDROCHLOROTHIAZIDE 25 MG TABLET (FP) PO SCH (09:15)
[2021-06-02] MEDS ORDERED: ISOSORBIDE MONONITRATE 60 MG TAB.SR.24H (FP) PO SCH (10:00)
[2021-06-02] MEDS ORDERED: SACUBITRIL/VALSARTAN 24 MG-26 MG TABLET PO SCH (11:30)
[2021-06-02] MEDS: ALBUTEROL SO4 2.5/IPRATROPIUM 0.5 INH SOL 3 ML VIAL.NEB. NEB SCH ×3 (11:40→20:04)
[2021-06-02 15:14] VITALS: TEMP 98.5
[2021-06-02 18:17] VITALS: BP 135/100; PULSE 88
[2021-06-02 21:20] LABS: HEMATOCRIT 27.6 % (35.4-49); HEMOGLOBIN 8.5 GM/dL (11.7-16.9); MCH 23.7 pg (25.7-33.7); MCHC 30.7 g/dl (32.0-35.9); MEAN CELL VOLUME 77.2 fl (80-96); MEAN PLT VOLUME 7.6 fl (7.5-11.1); PLATELET COUNT 189 10^3/uL (134-434); RBC 3.57 M/mm3 (4.00-5.60); RDW 21.4 % (11.9-15.9); RETICULOCYTES 2.54 % (0.5-1.5); WHITE BLOOD COUNT 5.4 K/mm3 (4.0-10.0)
[2021-06-03] MEDS ORDERED: FERROUS SO4 325 MG TABLET (FP) PO SCH (08:00)
== END 2021-06-02 21:00 | disposition left against medical advice (07) ==
LOC: JER 06:33 → UNDOADMOB 08:55 → JERBED 08:55 → INTOOBSV 08:55 → JERBED 10:03 → J4S 22:30
PROVIDERS: ADMIT Internal Medicine
PROC: 3E0F7GC Introduction of Other Therapeutic Substance into Respiratory Tract, Via Natural or Artificial Opening (ICD-10-PCS; principal; 2021-06-01)
PROC: 3E033GC Introduction of Other Therapeutic Substance into Peripheral Vein, Percutaneous Approach (ICD-10-PCS; 2021-06-01)
DX: I11.0 Hypertensive heart disease with heart failure (principal); F41.8 Other specified anxiety disorders; I10 Essential (primary) hypertension; E78.5 Hyperlipidemia, unspecified; I42.9 Cardiomyopathy, unspecified; I50.9 Heart failure, unspecified; N40.0 Benign prostatic hyperplasia without lower urinary tract symptoms; I25.2 Old myocardial infarction; I48.91 Unspecified atrial fibrillation; Z79.01 Long term (current) use of anticoagulants; G47.33 Obstructive sleep apnea (adult) (pediatric); K42.9 Umbilical hernia without obstruction or gangrene; D64.9 Anemia, unspecified; Z85.51 Personal history of malignant neoplasm of bladder; N20.0 Calculus of kidney; D50.9 Iron deficiency anemia, unspecified; Z91.14 Patient's other noncompliance with medication regimen
CPT/HCPCS: 36415; 71045-TC-FY; 71250-TC; 80048; 80053; 82550; 82728; 83540; 83550; 83615; 83735; 83880; 84100; 84443; 84484; 85025; 85027; 85045; 85610; 85730; 86850; 86900; 86901; 93005; 93010; 94640; 96374; 99285-25; C9803; G0378; U0003; U0005

== ENCOUNTER 2021-11-01 06:36 | Inpatient (IN) | payer OTHER ==
[2021-11-01] MEDS ORDERED: AZITHROMYCIN IVPB 500 MG in DEXTROSE 5%-WATER - 250 ML IVPB ONE (06:40)
[2021-11-01] MEDS: ALBUTEROL SO4 2.5/IPRATROPIUM 0.5 INH SOL 3 ML VIAL.NEB. NEB SCH ×3 (06:50→13:18)
[2021-11-01] MEDS ORDERED: AZITHROMYCIN IVPB 500 MG/250 ML BAG IVPB ONE (07:20)
[2021-11-01] MEDS ORDERED: ALBUTEROL SO4 2.5/IPRATROPIUM 0.5 INH SOL 3 ML VIAL.NEB. NEB ONE (07:20)
[2021-11-01 08:01] LABS: VENOUS O2 SATURATION 93.2 % (70-80); VENOUS PCO2 38.1 mmHg (38-52); VENOUS PH 7.326 (7.310-7.410)
[2021-11-01 08:02] LABS: BASO % 0.6 % (0-2.0); EOS % 2.3 % (0-4.5); HEMATOCRIT 28.6 % (35.4-49); HEMOGLOBIN 8.9 GM/dL (11.7-16.9); LYMPH % 28.8 % (8-40); MCH 26.5 pg (25.7-33.7); MCHC 31.2 g/dl (32.0-35.9); MEAN CELL VOLUME 84.8 fl (80-96); MONO % 7.5 % (3.8-10.2); NEUT % 60.8 % (42.8-82.8); PLATELET COUNT 141 10^3/uL (134-434); RBC 3.37 M/mm3 (4.00-5.60); RDW 18.3 % (11.9-15.9); WHITE BLOOD COUNT 4.4 K/mm3 (4.0-10.0)
[2021-11-01] MEDS ORDERED: FUROSEMIDE 40 MG/4 ML INJECTABLE VIAL IVPUSH ONE (08:10)
[2021-11-01 08:24] LABS: BLOOD UREA NITROGEN 24.8 mg/dL (7-18); CALCIUM 8.5 mg/dL (8.5-10.1)
[2021-11-01 08:25] LABS: ALBUMIN 3.2 g/dl (3.4-5.0); MAGNESIUM 2.1 mg/dL (1.8-2.4)
[2021-11-01 08:27] LABS: CREATININE 1.7 mg/dL (0.55-1.3)
[2021-11-01 08:29] LABS: BILIRUBIN,TOTAL 0.8 mg/dL (0.2-1)
[2021-11-01] MEDS ORDERED: FUROSEMIDE 40 MG/4 ML INJECTABLE VIAL ONE (08:32)
[2021-11-01 08:33] LABS: N-TERMINAL BNP 2104.4 pg/ml (5-125)
[2021-11-01] MEDS ORDERED: CEFTRIAXONE 1,000 MG in DEXTROSE 5%-WATER - 50 ML IVPB ONE (09:07)
[2021-11-01] MEDS ORDERED: CEFTRIAXONE 1 GM/50 ML BAG ONE (09:36)
[2021-11-01 09:55] LABS: EPI CELLS >36 /uL (0-25.1); HYALINE CASTS 3 /uL (0-3.1); PH,URINE 7.5 (5.0-8.0); URINE APPEARANCE CLOUDY; URINE BACTERIA >9,000 /uL (0-1359); URINE BILIRUBIN NEGATIVE (NEGATIVE); URINE COLOR YELLOW; URINE GLUCOSE (UA) NEGATIVE (NEGATIVE); URINE KETONE NEGATIVE (NEGATIVE); URINE LEUK ESTERASE TRACE (NEGATIVE); URINE NITRITE POSITIVE (NEGATIVE); URINE PROTEIN 2+ (NEGATIVE); URINE RBC 29 /uL (0-23.9); URINE WBC 77 /uL (0-25.8)
[2021-11-01] MEDS ORDERED: NITROGLYCERIN SUBLINGUAL 1/150 0.4 MG TAB SL ONE (10:05)
[2021-11-01] MEDS ORDERED: NITROGLYCERIN 2% OINTMENT - 1GM PACKET TD ONE ×2 (11:05→11:10)
[2021-11-01] MEDS ORDERED: CARVEDILOL 25 MG TABLET (FP) PO ONE (12:20)
[2021-11-01] MEDS ORDERED: amLODIPine BESYLATE 10 MG TABLET (FP) PO ONE (12:20)
[2021-11-01] MEDS ORDERED: HYDROCHLOROTHIAZIDE 25 MG TABLET (FP) PO ONE (12:22)
[2021-11-01] MEDS ORDERED: ISOSORBIDE MONONITRATE 30 MG TAB.SR.24H (FP) PO ONE (12:23)
[2021-11-01] MEDS ORDERED: ASPIRIN 81 MG CHEWABLE TABLETS PO ONE (12:23)
[2021-11-01] MEDS ORDERED: amLODIPine BESYLATE 10 MG TABLET (FP) ONE (12:34)
[2021-11-01] MEDS ORDERED: HYDROCHLOROTHIAZIDE 25 MG TABLET (FP) ONE (12:34)
[2021-11-01] MEDS ORDERED: CARVEDILOL 25 MG TABLET (FP) ONE (12:35)
[2021-11-01] MEDS ORDERED: ASPIRIN 81 MG CHEWABLE TABLETS ONE (12:35)
[2021-11-01] MEDS ORDERED: ACETAMINOPHEN 325 MG TABLET (FP) PO PRN (15:29)
[2021-11-01] MEDS: CARVEDILOL 25 MG TABLET (FP) PO SCH (21:12)
[2021-11-01] MEDS: APIXABAN 5 MG TABLET PO SCH (21:12)
[2021-11-01] MEDS: ATORVASTATIN CA 10 MG TABLET (FP) PO SCH (21:12)
[2021-11-02 08:20] LABS: HEMATOCRIT 25.8 % (35.4-49); MCH 26.2 pg (25.7-33.7); MCHC 31.1 g/dl (32.0-35.9); MEAN CELL VOLUME 84.3 fl (80-96); MEAN PLT VOLUME 8.2 fl (7.5-11.1); PLATELET COUNT 121 10^3/uL (134-434); RBC 3.06 M/mm3 (4.00-5.60); WHITE BLOOD COUNT 7.3 K/mm3 (4.0-10.0)
[2021-11-02 08:44] LABS: CALCIUM 8.5 mg/dL (8.5-10.1)
[2021-11-02 08:45] LABS: BLOOD UREA NITROGEN 32.1 mg/dL (7-18)
[2021-11-02 08:50] LABS: CREATININE 1.6 mg/dL (0.55-1.3)
[2021-11-02] MEDS: amLODIPine BESYLATE 10 MG TABLET (FP) PO SCH (09:46)
[2021-11-02] MEDS: ISOSORBIDE MONONITRATE 30 MG TAB.SR.24H (FP) PO SCH (09:46)
[2021-11-02] MEDS: APIXABAN 5 MG TABLET PO SCH ×2 (09:46→21:07)
[2021-11-02] MEDS: CARVEDILOL 25 MG TABLET (FP) PO SCH ×2 (09:46→21:07)
[2021-11-02] MEDS ORDERED: HYDROCHLOROTHIAZIDE 25 MG TABLET (FP) PO SCH (10:00)
[2021-11-02] MEDS ORDERED: ASPIRIN 81 MG CHEWABLE TABLETS PO SCH (10:00)
[2021-11-02] MEDS ORDERED: CEFTRIAXONE 1 GM in DEXTROSE 5%-WATER - 50 ML IVPB SCH ×2 (11:30→11:45)
[2021-11-02] MEDS ORDERED: DEXTROSE 5%-WATER - 50 ML IVPB ONE (11:48)
[2021-11-02] MEDS ORDERED: cefTRIAXone SODIUM 1 GM VIAL ONE (11:48)
[2021-11-02] MEDS: FUROSEMIDE 40 MG/4 ML INJECTABLE VIAL IVPUSH SCH (11:55)
[2021-11-02] MEDS ORDERED: ISOSORBIDE MONONITRATE 30 MG TAB.SR.24H (FP) PO ONE (12:23)
[2021-11-02 12:39] VITALS: BMI 24.0
[2021-11-02] MEDS ORDERED: VANCOMYCIN 1 GM/200 ML PREMIX BAG IVPB ONE (18:36)
[2021-11-02] MEDS: ATORVASTATIN CA 10 MG TABLET (FP) PO SCH (21:07)
[2021-11-03] MEDS: CARVEDILOL 25 MG TABLET (FP) PO SCH ×2 (09:01→21:02)
[2021-11-03] MEDS: ISOSORBIDE MONONITRATE 30 MG TAB.SR.24H (FP) PO SCH (09:01)
[2021-11-03] MEDS: amLODIPine BESYLATE 10 MG TABLET (FP) PO SCH (09:01)
[2021-11-03] MEDS: APIXABAN 5 MG TABLET PO SCH ×2 (09:01→21:02)
[2021-11-03] MEDS: FUROSEMIDE 40 MG/4 ML INJECTABLE VIAL IVPUSH SCH (09:01)
[2021-11-03 09:13] LABS: BASO % 0.8 % (0-2.0); EOS % 1.6 % (0-4.5); HEMATOCRIT 25.7 % (35.4-49); HEMOGLOBIN 8.2 GM/dL (11.7-16.9); LYMPH % 24.4 % (8-40); MCH 26.8 pg (25.7-33.7); MCHC 31.9 g/dl (32.0-35.9); MEAN CELL VOLUME 84.1 fl (80-96); MONO % 11.4 % (3.8-10.2); NEUT % 61.8 % (42.8-82.8); PLATELET COUNT 125 10^3/uL (134-434); RBC 3.06 M/mm3 (4.00-5.60); RDW 17.7 % (11.9-15.9); WHITE BLOOD COUNT 5.8 K/mm3 (4.0-10.0)
[2021-11-03] MEDS ORDERED: VANCOMYCIN 1 GM/200 ML PREMIX BAG IVPB SCH (10:00)
[2021-11-03] MEDS ORDERED: CEFTRIAXONE 2 GM in DEXTROSE 5%-WATER 100 ML IVPB SCH (10:00)
[2021-11-03 10:19] LABS: CALCIUM 8.4 mg/dL (8.5-10.1); CREATININE 1.4 mg/dL (0.55-1.3); PHOSPHOROUS 3.1 mg/dL (2.5-4.9)
[2021-11-03 10:20] LABS: BLOOD UREA NITROGEN 30.9 mg/dL (7-18)
[2021-11-03 10:21] LABS: TOT PROT 6.4 g/dl (6.4-8.2)
[2021-11-03 10:25] LABS: BILIRUBIN,TOTAL 1.2 mg/dL (0.2-1)
[2021-11-03] MEDS ORDERED: DEXTROSE 5%-WATER 100 ML IVPB ONE (10:29)
[2021-11-03] MEDS ORDERED: PIPERACILLIN/TAZOB 3.375 GM 3.375 GM in DEXTROSE 5%-WATER - 50 ML IVPB SCH (12:45)
[2021-11-03] MEDS ORDERED: PIPERACILLIN/TAZOBACTAM 3.375 GM VIAL IVPB ONE (17:24)
[2021-11-03] MEDS ORDERED: DEXTROSE 5%-WATER - 50 ML IVPB ONE (17:24)
[2021-11-03] MEDS: PIPERACILLIN/TAZOB 3.375 GM 3.375 GM in DEXTROSE 5%-WATER - 50 ML IVPB SCH (17:25)
[2021-11-03] MEDS: ATORVASTATIN CA 10 MG TABLET (FP) PO SCH (21:02)
[2021-11-04] MEDS ORDERED: DEXTROSE 5%-WATER - 50 ML IVPB ONE ×3 (01:06→18:23)
[2021-11-04] MEDS ORDERED: PIPERACILLIN/TAZOBACTAM 3.375 GM VIAL IVPB ONE ×3 (01:06→18:22)
[2021-11-04] MEDS: PIPERACILLIN/TAZOB 3.375 GM 3.375 GM in DEXTROSE 5%-WATER - 50 ML IVPB SCH ×3 (01:22→18:25)
[2021-11-04 07:46] LABS: BASO % 0.8 % (0-2.0); EOS % 2.6 % (0-4.5); HEMATOCRIT 29.7 % (35.4-49); HEMOGLOBIN 9.4 GM/dL (11.7-16.9); MCH 27.1 pg (25.7-33.7); MCHC 31.7 g/dl (32.0-35.9); MEAN CELL VOLUME 85.5 fl (80-96); MEAN PLT VOLUME 7.8 fl (7.5-11.1); MONO % 11.2 % (3.8-10.2); NEUT % 61.4 % (42.8-82.8); PLATELET COUNT 156 10^3/uL (134-434); RBC 3.47 M/mm3 (4.00-5.60); RDW 17.9 % (11.9-15.9); WHITE BLOOD COUNT 5.5 K/mm3 (4.0-10.0)
[2021-11-04 08:11] LABS: CALCIUM 8.8 mg/dL (8.5-10.1)
[2021-11-04 08:12] LABS: BLOOD UREA NITROGEN 28.2 mg/dL (7-18); MAGNESIUM 1.9 mg/dL (1.8-2.4)
[2021-11-04 08:15] LABS: ALBUMIN 3.3 g/dl (3.4-5.0); CREATININE 1.5 mg/dL (0.55-1.3)
[2021-11-04 08:16] LABS: TOT PROT 7.3 g/dl (6.4-8.2)
[2021-11-04 08:17] LABS: BILIRUBIN,TOTAL 0.9 mg/dL (0.2-1)
[2021-11-04] MEDS: ISOSORBIDE MONONITRATE 30 MG TAB.SR.24H (FP) PO SCH (09:18)
[2021-11-04] MEDS: CARVEDILOL 25 MG TABLET (FP) PO SCH ×2 (09:18→21:33)
[2021-11-04] MEDS: APIXABAN 5 MG TABLET PO SCH ×2 (09:18→21:33)
[2021-11-04] MEDS: FUROSEMIDE 40 MG/4 ML INJECTABLE VIAL IVPUSH SCH (09:18)
[2021-11-04] MEDS: amLODIPine BESYLATE 10 MG TABLET (FP) PO SCH (09:19)
[2021-11-04] MEDS ORDERED: VANCOMYCIN 1 GM/200 ML PREMIX BAG IVPB SCH (10:00)
[2021-11-04] MEDS: ATORVASTATIN CA 10 MG TABLET (FP) PO SCH (21:33)
[2021-11-05] MEDS ORDERED: PIPERACILLIN/TAZOBACTAM 3.375 GM VIAL IVPB ONE ×3 (01:25→17:49)
[2021-11-05] MEDS ORDERED: DEXTROSE 5%-WATER - 50 ML IVPB ONE ×3 (01:25→17:49)
[2021-11-05] MEDS: PIPERACILLIN/TAZOB 3.375 GM 3.375 GM in DEXTROSE 5%-WATER - 50 ML IVPB SCH ×3 (01:49→19:01)
[2021-11-05 07:49] LABS: BASO % 0.8 % (0-2.0); EOS % 3.5 % (0-4.5); HEMATOCRIT 27.9 % (35.4-49); HEMOGLOBIN 8.8 GM/dL (11.7-16.9); MCH 26.8 pg (25.7-33.7); MCHC 31.6 g/dl (32.0-35.9); MEAN CELL VOLUME 84.7 fl (80-96); MEAN PLT VOLUME 7.7 fl (7.5-11.1); MONO % 14.4 % (3.8-10.2); NEUT % 61.3 % (42.8-82.8); PLATELET COUNT 154 10^3/uL (134-434); RBC 3.29 M/mm3 (4.00-5.60); RDW 17.5 % (11.9-15.9); WHITE BLOOD COUNT 4.9 K/mm3 (4.0-10.0)
[2021-11-05 08:22] LABS: CALCIUM 8.6 mg/dL (8.5-10.1)
[2021-11-05 08:23] LABS: ALBUMIN 3.1 g/dl (3.4-5.0); BLOOD UREA NITROGEN 29.4 mg/dL (7-18); MAGNESIUM 2.1 mg/dL (1.8-2.4)
[2021-11-05 08:26] LABS: CREATININE 1.5 mg/dL (0.55-1.3); PHOSPHOROUS 3.1 mg/dL (2.5-4.9)
[2021-11-05 08:27] LABS: BILIRUBIN,TOTAL 0.8 mg/dL (0.2-1); TOT PROT 6.6 g/dl (6.4-8.2)
[2021-11-05] MEDS: amLODIPine BESYLATE 10 MG TABLET (FP) PO SCH (09:18)
[2021-11-05] MEDS: ISOSORBIDE MONONITRATE 30 MG TAB.SR.24H (FP) PO SCH (09:18)
[2021-11-05] MEDS: FUROSEMIDE 40 MG TABLET (FP) PO SCH (09:18)
[2021-11-05] MEDS: APIXABAN 5 MG TABLET PO SCH ×2 (09:18→21:38)
[2021-11-05] MEDS: CARVEDILOL 25 MG TABLET (FP) PO SCH ×2 (09:18→21:38)
[2021-11-05 17:13] LABS: EPI CELLS 12 /uL (0-25.1); HYALINE CASTS 1 /uL (0-3.1); PH,URINE 6.5 (5.0-8.0); URINE APPEARANCE CLEAR; URINE BACTERIA 33 /uL (0-1359); URINE BILIRUBIN NEGATIVE (NEGATIVE); URINE COLOR YELLOW; URINE GLUCOSE (UA) NEGATIVE (NEGATIVE); URINE KETONE NEGATIVE (NEGATIVE); URINE LEUK ESTERASE NEGATIVE (NEGATIVE); URINE NITRITE NEGATIVE (NEGATIVE); URINE PROTEIN NEGATIVE (NEGATIVE); URINE RBC 21 /uL (0-23.9); URINE UROBILINOGEN 0.2 mg/dL (0.2-1.0); URINE WBC 20 /uL (0-25.8)
[2021-11-05] MEDS: ATORVASTATIN CA 10 MG TABLET (FP) PO SCH (21:38)
[2021-11-06] MEDS ORDERED: PIPERACILLIN/TAZOBACTAM 3.375 GM VIAL IVPB ONE ×3 (01:17→16:58)
[2021-11-06] MEDS ORDERED: DEXTROSE 5%-WATER - 50 ML IVPB ONE ×3 (01:17→16:58)
[2021-11-06] MEDS: PIPERACILLIN/TAZOB 3.375 GM 3.375 GM in DEXTROSE 5%-WATER - 50 ML IVPB SCH ×3 (02:02→17:01)
[2021-11-06 07:22] LABS: EOS % 4.7 % (0-4.5); HEMOGLOBIN 8.8 GM/dL (11.7-16.9); LYMPH % 23.1 % (8-40); MCH 26.6 pg (25.7-33.7); MCHC 31.5 g/dl (32.0-35.9); MEAN CELL VOLUME 84.5 fl (80-96); MEAN PLT VOLUME 7.5 fl (7.5-11.1); MONO % 14.8 % (3.8-10.2); NEUT % 56.4 % (42.8-82.8); PLATELET COUNT 159 10^3/uL (134-434); RBC 3.32 M/mm3 (4.00-5.60); RDW 17.8 % (11.9-15.9); WHITE BLOOD COUNT 4.5 K/mm3 (4.0-10.0)
[2021-11-06 07:47] LABS: CALCIUM 8.4 mg/dL (8.5-10.1)
[2021-11-06 07:48] LABS: BLOOD UREA NITROGEN 26.3 mg/dL (7-18)
[2021-11-06 07:50] LABS: CREATININE 1.5 mg/dL (0.55-1.3)
[2021-11-06 07:52] LABS: PHOSPHOROUS 3.2 mg/dL (2.5-4.9); TOT PROT 6.6 g/dl (6.4-8.2)
[2021-11-06] MEDS: FUROSEMIDE 40 MG TABLET (FP) PO SCH (09:29)
[2021-11-06] MEDS: ISOSORBIDE MONONITRATE 30 MG TAB.SR.24H (FP) PO SCH (09:29)
[2021-11-06] MEDS: amLODIPine BESYLATE 10 MG TABLET (FP) PO SCH (09:30)
[2021-11-06] MEDS: CARVEDILOL 25 MG TABLET (FP) PO SCH ×2 (09:30→21:26)
[2021-11-06] MEDS: APIXABAN 5 MG TABLET PO SCH ×2 (09:30→21:26)
[2021-11-06] MEDS: LOSARTAN POTASSIUM 50 MG TABLET PO SCH (11:21)
[2021-11-06] MEDS: ATORVASTATIN CA 10 MG TABLET (FP) PO SCH (21:26)
[2021-11-07] MEDS ORDERED: DEXTROSE 5%-WATER - 50 ML IVPB ONE ×2 (01:04→08:27)
[2021-11-07] MEDS ORDERED: PIPERACILLIN/TAZOBACTAM 3.375 GM VIAL IVPB ONE ×2 (01:04→08:27)
[2021-11-07] MEDS: PIPERACILLIN/TAZOB 3.375 GM 3.375 GM in DEXTROSE 5%-WATER - 50 ML IVPB SCH ×2 (01:08→09:00)
[2021-11-07 08:12] LABS: EOS % 3.6 % (0-4.5); HEMATOCRIT 29.3 % (35.4-49); HEMOGLOBIN 9.1 GM/dL (11.7-16.9); LYMPH % 21.4 % (8-40); MCH 26.6 pg (25.7-33.7); MEAN CELL VOLUME 85.9 fl (80-96); MEAN PLT VOLUME 8.3 fl (7.5-11.1); MONO % 15.1 % (3.8-10.2); NEUT % 58.9 % (42.8-82.8); PLATELET COUNT 182 10^3/uL (134-434); RBC 3.41 M/mm3 (4.00-5.60); RDW 17.6 % (11.9-15.9); WHITE BLOOD COUNT 4.8 K/mm3 (4.0-10.0)
[2021-11-07 08:39] LABS: BLOOD UREA NITROGEN 24.3 mg/dL (7-18); CALCIUM 8.7 mg/dL (8.5-10.1); MAGNESIUM 2.1 mg/dL (1.8-2.4)
[2021-11-07 08:42] LABS: CREATININE 1.5 mg/dL (0.55-1.3); PHOSPHOROUS 3.3 mg/dL (2.5-4.9)
[2021-11-07 08:43] LABS: BILIRUBIN,TOTAL 0.8 mg/dL (0.2-1); TOT PROT 6.5 g/dl (6.4-8.2)
[2021-11-07] MEDS: amLODIPine BESYLATE 10 MG TABLET (FP) PO SCH (09:01)
[2021-11-07] MEDS: CARVEDILOL 25 MG TABLET (FP) PO SCH (09:01)
[2021-11-07] MEDS: FUROSEMIDE 40 MG TABLET (FP) PO SCH (09:01)
[2021-11-07] MEDS: ISOSORBIDE MONONITRATE 30 MG TAB.SR.24H (FP) PO SCH (09:01)
[2021-11-07] MEDS: APIXABAN 5 MG TABLET PO SCH (09:01)
[2021-11-07] MEDS: LOSARTAN POTASSIUM 50 MG TABLET PO SCH (09:11)
[2021-11-07 14:08] VITALS: BP 145/99; PULSE 66; TEMP 98
== END 2021-11-07 16:41 | disposition home or self-care (01) | DRG 194 ==
LOC: JER 06:36 → JERBED 09:15 → J4S 17:42
PROVIDERS: ADMIT Internal Medicine; ATTEND Internal Medicine
DX: I13.0 Hypertensive heart and chronic kidney disease with heart failure and stage 1 through stage 4 chronic kidney disease, or unspecified chronic kidney disease (principal); G47.33 Obstructive sleep apnea (adult) (pediatric); I50.43 Acute on chronic combined systolic (congestive) and diastolic (congestive) heart failure; N40.0 Benign prostatic hyperplasia without lower urinary tract symptoms; I25.10 Atherosclerotic heart disease of native coronary artery without angina pectoris; I48.0 Paroxysmal atrial fibrillation; Z79.01 Long term (current) use of anticoagulants; I42.8 Other cardiomyopathies; N18.9 Chronic kidney disease, unspecified; D64.9 Anemia, unspecified; I47.2 Ventricular tachycardia; N39.0 Urinary tract infection, site not specified; F32.A Depression, unspecified; R94.31 Abnormal electrocardiogram [ECG] [EKG]; R78.81 Bacteremia; B96.1 Klebsiella pneumoniae [K. pneumoniae] as the cause of diseases classified elsewhere
CPT/HCPCS: 0241U-QW; 36415; 71045-TC-FY; 76604; 80048; 80053; 80061; 81003; 82607; 82728; 82746; 82803; 82962; 83540; 83550; 83615; 83735; 83880; 84100; 84484; 85025; 85027; 85045; 87040; 87086; 87186; 87899; 93005; 93010; 93306-TC; 93308; 94660; 97116-GP; 97161-GP; 99285-25

== ENCOUNTER 2025-04-09 20:07 | Inpatient (IN) | payer OTHER ==
[2025-04-09 21:22] LABS: ABSOLUTE IMMATURE GRANULOCYTES 0.02 x10^3/uL (0.0-0.031); BASOPHILS # 0.02 x10^3/uL (0.01-0.08); EOSINOPHIL % 0.4 % (0.8-7.0); EOSINOPHILS # 0.02 x10^3/uL (0.04-0.54); MCHC 28.1 g/dl (32.3-36.5); MEAN CELL VOLUME 87.0 fl (79.0-92.2); MEAN PLT VOLUME 10.6 fl (9.4-12.4); MONOCYTE # 0.47 x10^3/uL (0.30-0.82); MONOCYTE % 9.1 % (5.3-12.2); RDW 19.3 % (12.2-16.4)
[2025-04-09 21:26] LABS: GLUCOSE,RANDOM 89.0 mg/dL (74-106); TOT PROT 7.3 g/dl (6.4-8.2)
[2025-04-09 21:27] LABS: CO2 12.0 mmol/L (21-32)
[2025-04-09 21:29] LABS: ALK PHOS 73.0 U/L (40-150)
[2025-04-09 21:31] LABS: CREATININE 1.88 mg/dL (0.55-1.3); SGOT/AST 25.0 U/L (5-34); SGPT/ALT 16.0 U/L (0-55)
[2025-04-09 21:52] LABS: HCV DIAGNOSTIC IN-HOUSE W/RFLX NON-REACTIVE (NONREACTIVE); HIV INTERPRETATION NEGATIVE (NEGATIVE)
[2025-04-09] MEDS ORDERED: FUROSEMIDE 40 MG/4 ML INJECTABLE VIAL ONE (21:53)
[2025-04-09] MEDS: FUROSEMIDE 40 MG/4 ML INJECTABLE VIAL IVPUSH ONE (22:39)
[2025-04-09 22:44] LABS: EPI CELLS 3 /uL (0-25.1); HYALINE CASTS 5 /uL (0-3.1); URINE APPEARANCE TURBID; URINE BACTERIA >9,000 /uL (0-1359); URINE BILIRUBIN NEGATIVE (NEGATIVE); URINE COLOR YELLOW; URINE GLUCOSE (UA) NEGATIVE (NEGATIVE); URINE KETONE NEGATIVE (NEGATIVE); URINE LEUK ESTERASE 3+ (NEGATIVE); URINE NITRITE NEGATIVE (NEGATIVE); URINE PROTEIN 3+ (NEGATIVE); URINE RBC 1809 /uL (0-23.9); URINE UROBILINOGEN 1.0 mg/dL (0.2-1.0); URINE WBC 819 /uL (0-25.8)
[2025-04-09 22:49] LABS: INR 1.76 (0.83-1.09); PROTHROMBIN TIME (PATIENT) 19.2 SEC (9.7-13.0)
[2025-04-10] MEDS ORDERED: HEPARIN NA (PORCINE) 5,000 UNITS/ML 1ML VIAL IVPUSH PRN (00:22)
[2025-04-10] MEDS: HEPARIN NA (PORCINE) 5,000 UNITS/ML 1ML VIAL IVPUSH ONE (01:59)
[2025-04-10] MEDS: HEPARIN INFUSION - 25,000 UNITS/500 ML INFUS.BAG IVPB SCH (02:04)
[2025-04-10 06:42] LABS: ABSOLUTE IMMATURE GRANULOCYTES 0.01 x10^3/uL (0.0-0.031); BASOPHILS # 0.03 x10^3/uL (0.01-0.08); EOSINOPHIL % 1.0 % (0.8-7.0); EOSINOPHILS # 0.04 x10^3/uL (0.04-0.54); MCHC 29.1 g/dl (32.3-36.5); MEAN CELL VOLUME 83.1 fl (79.0-92.2); MEAN PLT VOLUME 10.1 fl (9.4-12.4); MONOCYTE # 0.34 x10^3/uL (0.30-0.82); MONOCYTE % 8.3 % (5.3-12.2); RDW 18.8 % (12.2-16.4)
[2025-04-10] MEDS: FUROSEMIDE 40 MG/4 ML INJECTABLE VIAL IVPUSH SCH (06:47)
[2025-04-10 07:13] LABS: GLUCOSE,RANDOM 89.0 mg/dL (74-106)
[2025-04-10 07:14] LABS: TOT PROT 7.0 g/dl (6.4-8.2)
[2025-04-10 07:15] LABS: CO2 15.0 mmol/L (21-32)
[2025-04-10 07:17] LABS: ALK PHOS 69.0 U/L (40-150)
[2025-04-10 07:19] LABS: SGOT/AST 14.0 U/L (5-34); SGPT/ALT 12.0 U/L (0-55)
[2025-04-10 07:20] LABS: CREATININE 1.88 mg/dL (0.55-1.3); IRON SERUM 36.0 ug/dL (50-175)
[2025-04-10] MEDS ORDERED: FERROUS SULFATE 142 MG PO SCH (10:00)
[2025-04-10] MEDS: amLODIPine BESYLATE 10 MG TABLET (FP) PO SCH (10:07)
[2025-04-10] MEDS: HEPARIN NA (PORCINE) 5,000 UNITS/ML 1ML VIAL IVPUSH PRN (10:14)
[2025-04-10] MEDS: APIXABAN 5 MG TABLET PO SCH (11:10)
[2025-04-10] MEDS: METOPROLOL TARTRATE 50 MG TABLET (FP) PO SCH (11:10)
[2025-04-10] MEDS: amLODIPine BESYLATE 2.5 MG TABLET (FP) PO ONE (11:10)
[2025-04-10 12:47] VITALS: BMI 24.4
[2025-04-11] MEDS: ALBUTEROL SO4 2.5/IPRATROPIUM 0.5 INH SOL 3 ML VIAL.NEB. NEB ONE (01:55)
[2025-04-11 07:12] LABS: MCHC 29.9 g/dl (32.3-36.5); MEAN CELL VOLUME 83.8 fl (79.0-92.2); MEAN PLT VOLUME 10.4 fl (9.4-12.4); RDW 19.6 % (12.2-16.4)
[2025-04-11 07:34] LABS: GLUCOSE,RANDOM 82.0 mg/dL (74-106); TOT PROT 7.4 g/dl (6.4-8.2)
[2025-04-11 07:35] LABS: CO2 14.0 mmol/L (21-32)
[2025-04-11 07:37] LABS: ALK PHOS 82.0 U/L (40-150)
[2025-04-11 07:39] LABS: SGOT/AST 19.0 U/L (5-34); SGPT/ALT 17.0 U/L (0-55)
[2025-04-11 07:40] LABS: CREATININE 2.07 mg/dL (0.55-1.3)
[2025-04-11 07:44] LABS: LDH 188.0 U/L (87-246)
[2025-04-11] MEDS: amLODIPine BESYLATE 5 MG TABLET (FP) PO SCH (10:00)
[2025-04-11] MEDS ORDERED: amLODIPine BESYLATE 10 MG TABLET (FP) PO SCH (10:00)
[2025-04-11] MEDS ORDERED: METOCLOPRAMIDE HCL 10 MG TABLET (FP) PO PRN (14:51)
[2025-04-11] MEDS ORDERED: TRIMETHOBENZAMIDE HCL 200MG/2ML INJ IM PRN (16:35)
[2025-04-12 07:24] LABS: MCHC 29.4 g/dl (32.3-36.5); MEAN CELL VOLUME 82.2 fl (79.0-92.2); MEAN PLT VOLUME 10.5 fl (9.4-12.4); RDW 18.6 % (12.2-16.4)
[2025-04-12 07:47] LABS: GLUCOSE,RANDOM 87.0 mg/dL (74-106)
[2025-04-12 07:48] LABS: TOT PROT 6.5 g/dl (6.4-8.2)
[2025-04-12 07:49] LABS: CO2 16.0 mmol/L (21-32)
[2025-04-12 07:50] LABS: ALK PHOS 70.0 U/L (40-150)
[2025-04-12 07:53] LABS: CREATININE 2.19 mg/dL (0.55-1.3); SGOT/AST 19.0 U/L (5-34); SGPT/ALT 16.0 U/L (0-55)
[2025-04-12] MEDS: FERROUS SO4 325 MG TABLET (FP) PO SCH (09:57)
[2025-04-12] MEDS: amLODIPine BESYLATE 5 MG TABLET (FP) PO SCH (09:57)
[2025-04-12] MEDS: SODIUM BICARBONATE 650 MG TABLET PO SCH (13:06)
[2025-04-12 14:15] VITALS: RESP 18
[2025-04-12 14:34] LABS: MCHC 29.5 g/dl (32.3-36.5); MEAN CELL VOLUME 84.2 fl (79.0-92.2); MEAN PLT VOLUME 9.2 fl (9.4-12.4); RDW 18.7 % (12.2-16.4)
[2025-04-12] MEDS: FUROSEMIDE 40 MG/4 ML INJECTABLE VIAL IVPUSH ONE (15:16)
[2025-04-12 15:36] LABS: ARTERIAL BLD GAS O2 SATURATION 97.5 % (95-98); ARTERIAL BLOOD GAS BASE EXCESS -6.8 mmol/L (-2-2); ARTERIAL BLOOD GAS PCO2 26.00 mmHg (35-45); ARTERIAL BLOOD GAS PO2 95.7 mmHg (80-100); BG HCT 31.0 % (35.4-49); O2 CONTENT 1.43 % vol
[2025-04-12 15:40] LABS: ALLENS TEST POSITIVE
[2025-04-12] MEDS ORDERED: FUROSEMIDE 40 MG/4 ML INJECTABLE VIAL IVPUSH ONE (17:00)
[2025-04-13 07:36] LABS: MCHC 30.2 g/dl (32.3-36.5); MEAN CELL VOLUME 81.0 fl (79.0-92.2); MEAN PLT VOLUME 10.2 fl (9.4-12.4); RDW 18.2 % (12.2-16.4)
[2025-04-13 07:59] LABS: GLUCOSE,RANDOM 82.0 mg/dL (74-106); TOT PROT 6.5 g/dl (6.4-8.2)
[2025-04-13 08:01] LABS: CO2 18.0 mmol/L (21-32)
[2025-04-13 08:02] LABS: ALK PHOS 69.0 U/L (40-150)
[2025-04-13 08:05] LABS: SGOT/AST 24.0 U/L (5-34); SGPT/ALT 22.0 U/L (0-55)
[2025-04-13 08:06] LABS: CREATININE 2.09 mg/dL (0.55-1.3)
[2025-04-13] MEDS: MAGNESIUM OXIDE 400 MG TABLET (FP) PO ONE (10:48)
[2025-04-13] MEDS: FUROSEMIDE 40 MG TABLET (FP) PO SCH (10:48)
[2025-04-13 15:23] VITALS: BP 111/90; PULSE 97; TEMP 97.9
[2025-04-13 19:06] LABS: FREE KAPPA,SERUM 106.6 mg/L (3.3-19.4)
[2025-04-15 19:06] LABS: IG A QN SERUM. 644 mg/dL (61-437)
== END 2025-04-13 17:00 | disposition home health service (06) | DRG 299 ==
LOC: JER 20:07 → JERBED 20:35 → J4W 04-10
PROVIDERS: ADMIT Student in an Organized Health Care Education/Training Program; ATTEND Internal Medicine
DX: I82.412 Acute embolism and thrombosis of left femoral vein (principal); I50.23 Acute on chronic systolic (congestive) heart failure; J96.01 Acute respiratory failure with hypoxia; J96.02 Acute respiratory failure with hypercapnia; I13.0 Hypertensive heart and chronic kidney disease with heart failure and stage 1 through stage 4 chronic kidney disease, or unspecified chronic kidney disease; I24.89 Other forms of acute ischemic heart disease; E87.20 Acidosis, unspecified; N17.9 Acute kidney failure, unspecified; D61.818 Other pancytopenia; I42.8 Other cardiomyopathies; N18.9 Chronic kidney disease, unspecified; D64.9 Anemia, unspecified; N20.0 Calculus of kidney; I48.0 Paroxysmal atrial fibrillation; G47.30 Sleep apnea, unspecified; I25.10 Atherosclerotic heart disease of native coronary artery without angina pectoris; Z95.5 Presence of coronary angioplasty implant and graft; Z85.51 Personal history of malignant neoplasm of bladder; Z95.810 Presence of automatic (implantable) cardiac defibrillator
CPT/HCPCS: 36415; 36430; 36600; 71045-TC-FY; 80053; 81003; 82550; 82607; 82728; 82747; 82784; 82803; 83010; 83540; 83550; 83615; 83735; 83880; 83883; 84100; 84155; 84165; 84439; 84443; 84466; 84484; 85014; 85025; 85027; 85610; 85730; 86803; 86850; 86900; 86901; 86922; 87040; 87086; 87389; 93005; 93010; 93306-TC; 93970-TC; 94640; 94761; 97116-GP; 97162-GP; 99285-25; J1644; P9058